=== PATIENT | male | born 1935 | race Caucasian/White ===

== ENCOUNTER → 2024-07-08 | Outpatient (CLI) | payer MEDICARE, BC, SELFPAY ==
[2024-07-08 14:14] LABS: Misc Send Out* See Sep Rpt
[2024-07-08 15:46] LABS: Basophils % (Auto) 1 % (0-2.5); Eosinophils # (Auto) 0.1 Thou/mm3 (0.0-0.5); Eosinophils % (Auto) 3 % (0-10); Hematocrit 26.6 % (41.0-53.0); Immature Granulocytes % (Auto) 0 % (0-0); Immature Granulocytes Auto 0.01 Thou/mm3 (0.00-0.00); Lymphocytes # (Auto) 1.2 Thou/mm3 (1.0-4.8); Lymphocytes % (Auto) 29 % (10-50); Mean Corpuscular HGB Conc 32.3 g/dl (31.0-37.0); Mean Corpuscular Hemoglobin 32.2 pg (25.0-35.0); Mean Corpuscular Volume 100 fL (80-100); Monocytes # (Auto) 0.4 Thou/mm3 (0.0-0.8); Monocytes % (Auto) 11 % (0-12); Neutrophils # (Auto) 2.3 Thou/mm3 (1.8-7.7); Neutrophils % (Auto) 57 % (37-80); Nucleated Red Blood Cell % 0 /100 WBC (0); Platelet Count 218 Thou/mm3 (140-440); RDW Standard Deviation 64.1 fL (35.1-43.9); Red Blood Count 2.67 Miln/mm3 (4.50-5.90); White Blood Count 4.1 Thou/mm3 (3.8-10.6)
[2024-07-08 15:47] LABS: Hemoglobin 8.6 g/dL (13.5-16.0)
[2024-07-08 15:55] LABS: Albumin, Serum 3.7 gm/dL (3.4-4.8); Anion Gap 3 (7-16); BUN/Creatinine Ratio 23 Ratio (12-20); Blood Urea Nitrogen 35 mg/dL (9-23); Calcium 9.2 mg/dL (8.3-10.6); Calcium (Corrected) 9.4 mg/dL (8.5-10.1); Carbon Dioxide 26.7 mMol/L (20.0-31.0); Chloride 103 mMol/L (98-107); Creatinine (Component) 1.5 mg/dL (0.6-1.3); Glucose 92 mg/dL (74-106); Osmolality,Calculated 274 (275-295); Phosphorous 3.6 mg/dL (2.4-5.1); Potassium 4.3 mMol/L (3.4-5.1); Sodium 133 mMol/L (136-145); eGFR 45 See Note
[2024-07-08 16:20] LABS: Ferritin 490 ng/mL (10.5-307.3); Total Iron Binding Capacity 191 mcg/dL (250-425)
[2024-07-08 16:49] LABS: Iron 155 mcg/dL (65-175); Percent Iron Saturation 81 % (20-55); Unsaturated Iron Binding 36 (225-295)
== END | disposition home or self-care (01) ==
LOC: COPL 13:55
PROVIDERS: PCP Family Medicine; Referring Provider Internal Medicine; Visit Provider Internal Medicine
DX: N18.4 Chronic kidney disease, stage 4 (severe) (principal); D63.1 Anemia in chronic kidney disease; I50.9 Heart failure, unspecified; R10.31 Right lower quadrant pain
CPT/HCPCS: 36415; 80069; 82728; 83540; 83550; 84466; 85025

== ENCOUNTER → 2024-07-28 | Outpatient (CLI) | payer MEDICARE, BC, SELFPAY ==
[2024-07-28 11:36] LABS: Misc Send Out* See Sep Rpt
[2024-07-28 12:08] LABS: Basophils # (Auto) 0.1 Thou/mm3 (0.0-0.2); Basophils % (Auto) 2 % (0-2.5); Eosinophils # (Auto) 0.1 Thou/mm3 (0.0-0.5); Eosinophils % (Auto) 2 % (0-10); Hematocrit 24.2 % (41.0-53.0); Immature Granulocytes % (Auto) 1 % (0-0); Immature Granulocytes Auto 0.02 Thou/mm3 (0.00-0.00); Immature Reticulocyte Fraction 10.6 % (2.3-13.4); Lymphocytes # (Auto) 1.2 Thou/mm3 (1.0-4.8); Lymphocytes % (Auto) 28 % (10-50); Mean Corpuscular HGB Conc 32.2 g/dl (31.0-37.0); Mean Corpuscular Hemoglobin 32.5 pg (25.0-35.0); Mean Corpuscular Volume 101 fL (80-100); Monocytes # (Auto) 0.3 Thou/mm3 (0.0-0.8); Monocytes % (Auto) 7 % (0-12); Neutrophils # (Auto) 2.5 Thou/mm3 (1.8-7.7); Neutrophils % (Auto) 60 % (37-80); Nucleated Red Blood Cell % 0 /100 WBC (0); Platelet Count 201 Thou/mm3 (140-440); Reticulocyte % (Auto) 0.4 % (0.5-1.5); Reticulocyte Absolute Auto 10.1 Biln/L (25.0-75.0); Reticulocyte Hgb Content 34.7 pg (28.0-35.0); White Blood Count 4.2 Thou/mm3 (3.8-10.6)
[2024-07-28 12:22] LABS: Hemoglobin 7.8 g/dL (13.5-16.0)
[2024-07-28 12:23] LABS: Sed Rate (ESR) 47 mm/hr (0-20)
[2024-07-28 12:27] LABS: Folate 7.36 ng/mL (>5.38); Vitamin B12 761 pg/mL (211-911)
[2024-07-28 12:42] LABS: Alanine Aminotransferase 8 U/L (10-49); Albumin, Serum 3.8 gm/dL (3.4-4.8); Alkaline Phosphatase 85 U/L (46-116); Anion Gap 7 (7-16); Aspartate Amino Transferase < 10 U/L (0-34); BUN/Creatinine Ratio 31 Ratio (12-20); Bilirubin,Total 0.5 mg/dL (0.3-1.2); Blood Urea Nitrogen 59 mg/dL (9-23); Calcium 9.2 mg/dL (8.3-10.6); Calcium (Corrected) 9.4 mg/dL (8.5-10.1); Carbon Dioxide 25.6 mMol/L (20.0-31.0); Chloride 104 mMol/L (98-107); Creatinine (Component) 1.9 mg/dL (0.6-1.3); Free T4 (Free Thyroxine) 1.34 ng/dL (0.89-1.76); Globulin 3.9 gm/dL (2.3-3.5); Glucose 121 mg/dL (74-106); Osmolality,Calculated 291 (275-295); Sodium 137 mMol/L (136-145); Thyroid Stimulating Hormone 4.45 uIU/mL (0.55-4.78); Total Protein 7.7 gm/dL (5.7-8.2); eGFR 34 See Note
[2024-07-28 13:21] LABS: Ferritin 596 ng/mL (10.5-307.3); Total Iron Binding Capacity 188 mcg/dL (250-425)
[2024-07-28 13:31] LABS: Iron 154 mcg/dL (65-175)
[2024-08-01 06:52] LABS: Erythropoietin (EPO)* 1249.3 mIU/mL (2.6-18.5)
== END | disposition home or self-care (01) ==
LOC: COPL 11:15
PROVIDERS: PCP Family Medicine; Referring Provider Internal Medicine Hematology & Oncology; Visit Provider Internal Medicine Hematology & Oncology
DX: D46.9 Myelodysplastic syndrome, unspecified (principal); I50.9 Heart failure, unspecified; E03.9 Hypothyroidism, unspecified; K21.9 Gastro-esophageal reflux disease without esophagitis
CPT/HCPCS: 36415; 80053; 82607; 82668; 82728; 82746; 83540; 83550; 83880; 84439; 84443; 85025; 85046; 85652

== ENCOUNTER 2024-07-31 02:02 | Emergency (ER) | payer MEDICARE, BC, SELFPAY ==
[2024-07-31] VITALS (7 sets, daily range): BP systolic 105–124; BP diastolic 55–65; PULSE 76–98; RESP 17–26; TEMP 36.6–37; O2SAT 95–99; BMI 21.4
--- NOTE | 2024-07-31 02:15 | PC.NURSE ---
PATIENT WAS BROUGHT TO ER FOR BILATERAL ARM PAIN, TINGLING, SLURRING WORDS, DIZZINESS, THAT WOKE HIM UP FROM HIS SLEEP APPROX 0030. PATIENTS LWK WAS AT 2130 PER PATIENT. A STROKE ALERT WAS CALLED AND PATIENT WAS TAKEN TO CT SCAN.
--- NOTE | 2024-07-31 02:20 | PC.NURSE ---
activated telespecialist conf # [phone]
--- NOTE | 2024-07-31 02:21 | XR_ITS ---
Examination: CTA carotids with intravenous contrast CTA brain, head with intravenous contrast. 2-D sagittal, coronal reconstructions. 3-D reconstructions. Exam date and time: July 31, 2024 0227 hrs. Indications: Stroke alert, onset focal neurologic deficit, difficulty speaking beginning one hour ago CTDI: vol (mGy) 27.84 DLP: (mGycm) 528 Technique: Multiple CTA axial brain, head carotid images post intravenous contrast injection 75 cc, [id number]. 2-D sagittal, coronal reconstructions. 3-D reconstructions, 3-D post processing including vascular maximum intensity projection images. Low dose protocols were performed. One or more of the following dose reduction techniques were used; automated exposure control, adjustment of the mA and/or KV according to patient size, use of iterative reconstruction technique. 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
--- NOTE | 2024-07-31 02:21 | XR_ITS ---
Examination: CT brain head without contrast. 2-D sagittal coronal reconstructions Date and time of exam:July 31, 2024 0226 hrs. Indications: Stroke alert, onset focal neurologic deficit, difficulty speaking with bilateral arm weakness and pain beginning one hour ago CTDI: vol (mGy):53.1 DLP: (mGycm):1119 Technique: Multiple CT axial sections of the brain have been obtained, 5 mm slice thickness. Contrast has not been administered. 2-D sagittal, coronal reconstructions have been obtained Low dose protocols were performed. One or more of the following dose reduction techniques were used; automated exposure control, adjustment of the mA and/or KV according to patient size, use of iterative reconstruction technique. Findings: No significant ventricular enlargement. Intra-axial or extra-axial hemorrhage density is not seen. No mass effect or midline shift Basal cisterns are not remarkable. Fourth ventricle is midline. Cranial vault intact. Impression: Negative for acute hemorrhage, mass effect or midline shift
--- NOTE | 2024-07-31 02:28 | PD.EDADULT ---
ED General RME/HPI General Chief complaint: General Adult/Misc Complain Stated complaint: SHAHEEN ARM PAIN Time Seen by Provider: 07/31/24 02:28 Arrival date/time: 07/31/24 02:02 Related Data Home Medications ?Medication ?Instructions ?Recorded ?Confirmed aspirin 81 mg tablet 81 mg PO DAILY 08/16/23 09/18/23 atorvastatin 40 mg tablet 40 mg PO QPM 08/16/23 09/18/23 carvedilol 25 mg tablet 25 mg PO BID 08/16/23 08/16/23 epoetin jackie 4,000 unit/mL 4,000 unit subcut QOWEEK 08/16/23 09/18/23 injection solution (Procrit) ferrous sulfate 324 mg (65 mg 325 mg PO DAILY PRN ANEMIA 08/16/23 09/18/23 iron) tablet,delayed release finasteride 5 mg tablet 5 mg PO DAILY 08/16/23 09/18/23 fluticasone propionate 50 1 spray intranasal BID 08/16/23 09/18/23 mcg/actuation nasal spray,suspension furosemide 40 mg tablet 40 mg PO DAILY 08/16/23 09/18/23 levothyroxine 25 mcg tablet 25 mcg PO DAILY 08/16/23 09/18/23 magnesium oxide 400 mg (241.3 mg 400 mg PO DAILY 08/16/23 09/18/23 magnesium) tablet pantoprazole 40 mg tablet,delayed 40 mg PO DAILY 08/16/23 09/18/23 release sacubitril 49 mg-valsartan 51 mg 1 tab PO BID 08/16/23 09/18/23 tablet (Entresto) tamsulosin 0.4 mg capsule 0.4 mg PO DAILY 08/16/23 09/18/23 Previous Rx's ?Medication ?Instructions ?Recorded amoxicillin 875 mg-potassium 1 tab PO BID #20 tabs 09/26/23 clavulanate 125 mg tablet Allergies Allergy/AdvReac Type Severity Reaction Status Date / Time No Known Allergies Allergy Verified 06/27/24 13:44 Course Orders Category Date Time Status Bedside Blood Glucose NOW Care 07/31/24 02:21 Completed Allocation Analyst NOW Care 07/31/24 02:21 Completed Continuous Pulse Oximetry NOW Care 07/31/24 02:21 Completed EKG (ED ONLY) *Do not use* NOW Care 07/31/24 02:21 Active In and Out Catheter NEEDED Care 07/31/24 02:21 Active Insert IV NOW Care 07/31/24 02:21 Active NIH Stroke Scale now Care 07/31/24 02:21 Active NPO NOW Care 07/31/24 02:21 Active Nurse Swallow Screen x1 Care 07/31/24 02:21 Active Consult to Neurology / Tele-Neurology Routine Cons 07/31/24 02:[address] angio stroke protocol Stat Exams 07/31/24 02:[address] stroke protocol Stat Exams 07/31/24 02:21 Ordered EKG (ED Only) Stat Exams 07/31/24 02:21 Ordered CBC Stat Lab 07/31/24 02:21 Ordered Comprehensive Metabolic Panel Stat Lab 07/31/24 02:21 Ordered Drug Screen,Urine Stat Lab 07/31/24 02:21 Ordered Magnesium Stat Lab 07/31/24 02:21 Ordered Partial Thromboplastin Time Stat Lab 07/31/24 02:21 Ordered Prothrombin Time with INR Stat Lab 07/31/24 02:21 Ordered Troponin I Stat Lab 07/31/24 02:21 Ordered Urinalysis Stat Lab 07/31/24 02:21 Ordered Urine Culture Stat Lab 07/31/24 02:21 Ordered Ondansetron Inj [Zofran Inj] Med 07/31/24 02:21 Active 4 mg IV Q4HR PRN Oxygen Delivery NOW RT 07/31/24 02:21 Active Vital Signs Vital signs: Vital Signs Temperature 98.6 F 07/31/24 02:08 Pulse Rate 98 07/31/24 02:08 Respiratory Rate 26 H 07/31/24 02:08 Blood Pressure 120/65 07/31/24 02:08 Pulse Oximetry (%) 99 07/31/24 02:08 Oxygen Delivery Method Room Air 07/31/24 02:08 MDM Medications Medication administrations:: Medication Administration History Ondansetron HCl (Ondansetron Inj 2 Mg/Ml Inj 2 Ml) 4 mg IV Q4HR PRN PRN Reason: NAUSEA OR VOMITING Stop: 08/30/24 02:20 Discharge Plan Prescriptions/Referrals Prescriptions/Med Rec: No Action furosemide 40 mg tablet 40 mg PO DAILY Patient Comments: TAKE 1 TABLET BY MOUTH EVERY DAY DIRECTED carvedilol 25 mg tablet 25 mg PO BID Patient Comments: TAKE 1 TABLET BY MOUTH TWICE A DAY levothyroxine 25 mcg tablet 25 mcg PO DAILY Patient Comments: TAKE 1 TABLET BY MOUTH EVERY DAY magnesium oxide 400 mg (241.3 mg magnesium) tablet 400 mg PO DAILY pantoprazole 40 mg tablet,delayed release (DR/EC) 40 mg PO DAILY Patient Comments: TAKE 1 TABLET BY MOUTH EVERY DAY 30 MINUTES BEFORE BREAKFAST finasteride 5 mg tablet 5 mg PO DAILY ferrous sulfate 324 mg (65 mg iron) tablet,delayed release (DR/EC) 325 mg PO DAILY PRN (Reason: ANEMIA) Patient Comments: TAKE 1 TABLET BY MOUTH TWICE A DAY Entresto 49-51 mg tablet 1 tab PO BID Patient Comments: TAKE 1 TABLET BY MOUTH TWICE A DAY atorvastatin 40 mg tablet 40 mg PO QPM Patient Comments: TAKE 1 TABLET BY MOUTH EVERY DAY Procrit 4,000 unit/mL solution 4,000 unit subcut QOWEEK Rx Instructions: every 2 weeks tamsulosin 0.4 mg capsule 0.4 mg PO DAILY aspirin 81 mg Tablet 81 mg PO DAILY Hold Instructions: Resume on 01/11/24. fluticasone propionate 50 mcg/actuation [place],Suspension 1 spray INTRANASAL BID amoxicillin-pot clavulanate 875-125 mg tablet 1 tab PO BID Qty: 20 0RF Patient/Caregiver Discharge Instructions Print Language: [place]
--- NOTE | 2024-07-31 02:37 | PC.NURSE ---
DR. DR DENSON FROM [facility] CALLED FOR A CONSULT AFTER CT SCAN.
--- NOTE | 2024-07-31 02:37 | PD.EDRME ---
Rapid Medical Screening Exam RME Arrival date/time: 07/31/24 02:02 Chief Complaint: General Adult/Misc Complain Time Seen by Provider: 07/31/24 02:28 Vital signs: Vital Signs Temperature 98.6 F 07/31/24 02:08 Pulse Rate 98 07/31/24 02:08 Respiratory Rate 26 H 07/31/24 02:08 Blood Pressure 120/65 07/31/24 02:08 Pulse Oximetry (%) 99 07/31/24 02:08 Oxygen Delivery Method Room Air 07/31/24 02:08 RME Narrative: 89yo male BIBA from home presents to the ED for neurological symptoms. LKWT 2100. Per EMS, patient woke up ~0030 and was stuttering, had tremors, and felt cold. Charge nurse spoke with the patient's , who denies AMS. On ED arrival, patient is stuttering and does not have a facial droop. Orders placed. Patient sent to CT.
[2024-07-31 02:45] LABS: Collection Type, Urine Clean Catch
[2024-07-31 02:56] LABS: Basophils # (Auto) 0.1 Thou/mm3 (0.0-0.2); Basophils % (Auto) 3 % (0-2.5); Bilirubin,Urine Negative (Negative); Blood,Urine Negative (Negative); Budding Yeast,Urine Present; Clarity,Urine Turbid (Clear/Hazy); Color,Urine Lt-Yellow (Lt Yel-Yel); Eosinophils # (Auto) 0.1 Thou/mm3 (0.0-0.5); Eosinophils % (Auto) 1 % (0-10); Glucose, Urine Negative (Negative); Hematocrit 26.4 % (41.0-53.0); Immature Granulocytes % (Auto) 1 % (0-0); Immature Granulocytes Auto 0.03 Thou/mm3 (0.00-0.00); Ketones,Urine Negative (Negative); Leukocyte Esterase,Urine Positive (Negative); Lymphocytes # (Auto) 1.2 Thou/mm3 (1.0-4.8); Lymphocytes % (Auto) 24 % (10-50); Mean Corpuscular HGB Conc 32.6 g/dl (31.0-37.0); Mean Corpuscular Hemoglobin 32.2 pg (25.0-35.0); Mean Corpuscular Volume 99 fL (80-100); Monocytes # (Auto) 0.2 Thou/mm3 (0.0-0.8); Monocytes % (Auto) 5 % (0-12); Neutrophils # (Auto) 3.6 Thou/mm3 (1.8-7.7); Neutrophils % (Auto) 68 % (37-80); Nitrite,Urine Negative (Negative); Nucleated Red Blood Cell % 0 /100 WBC (0); PH,Urine 7.5 (5.0-7.0); Platelet Count 223 Thou/mm3 (140-440); Protein,Urine Trace (Neg - Trace); RBC,Urine 4 /hpf (0-3); Red Blood Count 2.67 Miln/mm3 (4.50-5.90); Specific Gravity,Urine 1.014 (1.001-1.035); Squamous Epithelial Cell,Urine < 1 /hpf (0-5); Urobilinogen,Urine Negative mg/dL (0.0-1.0); WBC,Urine 305 /hpf (0-5); White Blood Count 5.3 Thou/mm3 (3.8-10.6)
[2024-07-31 02:59] LABS: Hemoglobin 8.6 g/dL (13.5-16.0)
[2024-07-31 03:03] LABS: INR 1.1 (0.9-1.3); Prothrombin Time 11.9 Seconds (9.0-12.2)
[2024-07-31 03:04] LABS: Amphetamine/Methamp Scrn,U Negative (Negative); Barbiturate Screen,Urine Negative (Negative); Benzodiazepines Screen,Urine Negative (Negative); Benzoylecgonine Screen, Ur Negative (Negative); Fentanyl Screen,Urine Negative (Negative); Opiate Screen,Urine Negative (Negative); THC Screen,Urine Negative (Negative)
--- NOTE | 2024-07-31 03:04 | EDNOTE_ITS ---
ED General RME/HPI General Chief complaint: General Adult/Misc Complain Stated complaint: SHAHEEN ARM PAIN Time Seen by Provider: 07/31/24 02:28 Arrival date/time: 07/31/24 02:02 Limitations: no limitations RME / HPI RME / HPI narrative: 89yo male ANUJA from home presents to the ED for neurological symptoms. LKWT 2100. Per EMS, patient woke up ~0030 and was stuttering, had tremors, and felt cold. Charge nurse spoke with the patient's , who denies AMS. On ED arrival, patient is stuttering and does not have a facial droop. Orders placed. Patient sent to CT. ------ Dr. Liz's Main ED Evaluation: 89yo male ANUJA from home presents to the ED for a chief complaint of itchy BUE per pt. Patient states he's had posterior head pain x 1 day, reporting he feels like he slept wrong . He states he woke up tonight at 0030 with lightheadedness, chills, tremors, and had neck twitching, so he wanted to come in for evaluation. He took Tylenol without any alleviation of symptoms. Denies any chest pain, shortness of breath, dizziness or any other associated symptoms. No known allergies. Related Data Home Medications ?Medication ?Instructions ?Recorded ?Confirmed aspirin 81 mg tablet 81 mg PO DAILY 08/16/23 07/31/24 carvedilol 25 mg tablet 25 mg PO BID 08/16/23 07/31/24 finasteride 5 mg tablet 5 mg PO DAILY 08/16/23 07/31/24 fluticasone propionate 50 1 spray intranasal BID 08/16/23 07/31/24 mcg/actuation nasal spray,suspension levothyroxine 25 mcg tablet 25 mcg PO DAILY 08/16/23 07/31/24 pantoprazole 40 mg tablet,delayed 40 mg PO DAILY 08/16/23 07/31/24 release sacubitril 49 mg-valsartan 51 mg 1 tab PO BID 08/16/23 07/31/24 tablet (Entresto) tamsulosin 0.4 mg capsule 0.4 mg PO DAILY 08/16/23 07/31/24 hydroxyzine HCl 50 mg tablet 50 mg PO QID PRN 07/31/24 07/31/24 Previous Rx's ?Medication ?Instructions ?Recorded acetaminophen 325 mg tablet 650 mg (2 x 325 mg) PO BID PRN 07/31/24 (Tylenol) pain #14 tabs Allergies Allergy/AdvReac Type Severity Reaction Status Date / Time No Known Allergies Allergy Verified 07/31/24 15:07 Review of Systems Review of Systems Systems Reviewed: All systems reviewed, normal except as documented Past Medical History Past Medical History NEUROLOGIC: Positive Neurological Disorders; Negative Cerebrovascular Accident, Transient Ischemic Attacks (TIA), Dementia, Alzheimer's Disease, Parkinson's Disease, Brain Tumor, Meningitis, Seizures, Epilepsy, Multiple Sclerosis, Cerebral Palsy, Amyotrophic Lateral Sclerosis (ALS/Sharlene Gehrig's), Guillain-Jackson Syndrome, Spina Bifida, Paralysis, Peripheral Neuropathy, Stewart's Palsy, Subdural Hematoma, Migraine, Head Trauma, Spinal Cord Injury or Traumatic Brain Injury CARDIAC: Positive Cardiac Disorders (Pt. had open heart surgery 4 years ago and 1 stent placed 5 years ago.), Myocardial Infarction (2019), Cardiac Arrhythmia, Coronary Artery Disease, Hypercholesterolemia, Congestive Heart Failure, Valvular Heart Disease and Hypertension; Negative Atrial Fibrillation, Angina, Heart Murmur, Atherosclerotic Heart Disease, Peripheral Vascular Disease, Aneurysm, Congenital Heart Disease, Rheumatic Fever, Cardiomyopathy, Edema, Pericarditis, Cellulitis, Deep Vein Thrombosis, Hypotension or Varicose Veins RESPIRATORY: Positive Pneumonia and Sleep Apnea; Negative Chronic Obstructive Pulmonary Disease (COPD), Asthma, Bronchitis, Emphysema, Pulmonary Fibrosis, Cystic Fibrosis, Tuberculosis, Pulmonary Embolism or Pulmonary Edema GASTROINTESTINAL: Positive Gastrointestinal Disorders, Gall Bladder Disease and Gastroesophageal Reflux Disease; Negative Hepatitis, Cirrhosis, Pancreatitis, Celiac Disease, Gastrointestinal Bleed, Esophageal Varices, Joe's Esophagus, Colitis, Ulcerative Colitis, Diverticulitis, Diverticulosis, Ulcer, Colorectal Cancer, Irritable Bowel, Crohn's Disease, Obstructive Bowel, Hiatal Hernia, Hemorrhoids or Obesity GENITOURINARY: Positive Genitourinary Disorders, Renal Disease and Benign Prostatic Hyperplasia; Negative Kidney Stones, Polycystic Kidney Disease, Neurogenic Bladder, Inguinal Hernia, Dialysis or Prostate Cancer REPRODUCTIVE: Negative Testicular Cancer MUSCULOSKELETAL: Positive Musculoskeletal Disorders and Arthritis (Left shoulder.); Negative Muscular Dystrophy, Myasthenia Gravis, Marfan's Syndrome, Bone Cancer, Rheumatoid Arthritis, Osteoporosis, Degenerative Disk Disease, Gout, Scoliosis, Carpal Tunnel Syndrome, Fibromyalgia, Fractures, Degenerative Joint Disease, Osteomyelitis or Poliovirus ENT: Positive Cataracts (bilat); Negative Glaucoma, Blind, Retinal Detachment, Macular Degeneration, Ear Infection, Deafness, Head Trauma or Eye Prosthesis ENDOCRINE: Positive Hypothyroidism; Negative Endocrine Disorders, Diabetes Mellitus Type 1, Diabetes Mellitus Type 2, Hypoglycemia, Viral's Syndrome, Highland's Disease, Hyperthyroidism, Parathyroid Disease, Pituitary Disease, Systemic Lupus Erythematosus, Syndrome of Inappropriate Antidiuretic Hormone (SIADH), Adrenal Disease or Graves' Disease HEMATOLOGIC: Positive Blood Disorders and Anemia; Negative Leukemia, Hemophilia, Thalassemia, Sickle Cell Disease or Clotting Problems PSYCHO/SOCIAL: Positive Anxiety; Negative Psychiatric Problems, Schizophrenia, Recreational Drug Use, Bipolar Disorder, Depression, Behavior Problems, Self-Mutilation, Attention Deficit Disorder, Attention Deficit Hyperactivity Disorder, Post Traumatic Stress Disorder or Eating Disorder OTHER HISTORY: Positive Hospitalization, Falls, Blood Transfusions, Chicken Pox, Measles and Cancer; Negative Autoimmune Disease, Down Syndrome, Autism, Developmental Delay, Shingles, Blood Transfusion Reaction, Anesthesia Reactions, Organ Transplant, Chemotherapy, Radiation Therapy, Hyperbaric Therapy, MRSA, VRSA, Vancomycin- Resistant Enterococci, Human Immunodeficiency Virus (HIV), Mumps, Rubella ([place]au[place] Measles), Pertussis, Clostridium Difficile, Colorectal Cancer, Lung Cancer, Prostate Cancer or Testicular Cancer Family History FAMILY HISTORY: Positive Family Cancer (sister had a brain tumor.) and Family Surgery; Negative Family Psychiatric Problems, Family Respiratory Disorders, Family Cardiac Disorders, Family Gastrointestinal Problems or Family Anesthesia Reaction Surgical History SURGICAL: Positive Cardiac Surgery, Open Heart Surgery, Coronary Artery Bypass Graft, Coronary Stent, Cardiac Catheterization, Pacemaker (05/27/2023), Angiogram, Auto Implanted Cardiovert Defib (defibrillator.), Nose Surgery (sinus surgery 1969), Oral Surgery (bottom lip skin cancer), Tonsillectomy, Abdominal Surgery and Vasectomy; Negative Valve Replacement, Vascular Surgery, Carotid Endarterectomy, Endocrine Surgery, Thyroidectomy, Ear Surgery, Tympanostomy Tube, Eye Surgery, Adenoidectomy, Cochlear Implant, Corneal Transplant, Throat Surgery, Tracheostomy, Gastric Bypass Surgery, Gastrostomy, Bowel Surgery, Nephrectomy, Transurethral Resection, Joint Replacement, Amputation, Open Reduction Internal Fixation, Arthroscopy, Neurologic Surgery, Brain Shunt or Organ Transplant Social History SMOKING STATUS: Former smoker SUBSTANCE USE: does not use ED Exam Narrative Physical exam: Pt appears slightly anxious General Limitations: Present no limitations General appearance: Present alert and anxious; Absent obtunded or in distress Head Head exam: Present atraumatic Eye Eye exam: Present normal appearance, PERRL, EOMI and other (no trauma); Absent nystagmus, miosis or mydriasis ENT ENT exam: Present normal exam, normal oropharynx and mucous membranes moist Neck Neck exam: Present normal inspection, full ROM and trachea midline Chest Chest inspection: Present other (Midline scar mid chest well-healed; barrel- chested); Absent rash Respiratory Respiratory exam: Present normal lung sounds bilaterally Cardiovascular Cardiovascular exam: Present regular rate, normal rhythm and normal heart sounds Abdominal Exam Abdominal exam: Present soft and normal bowel sounds Extremities Exam Extremities exam: Present normal inspection and full ROM Back Exam Back exam: Present normal inspection, full ROM and other (no step-off or ecchymosis); Absent tenderness, vertebral tenderness or rashes Neurological Exam Neurological exam: Present alert and other (has stuuering of words occasionally, no facial droop, ) Psychiatric Psychiatric exam: Present normal affect and normal mood Skin Skin exam: Present warm, dry, intact, normal color and other (no zoster rash) Course Quality Measures none Orders Category Date Time Status Bedside Blood Glucose NOW Care 07/31/24 02:21 Completed Corporate Director Talent Assessment NOW Care 07/31/24 02:21 Completed Continuous Pulse Oximetry NOW Care 07/31/24 02:21 Completed EKG (ED ONLY) *Do not use* NOW Care 07/31/24 02:21 Completed In and Out Catheter NEEDED Care 07/31/24 02:21 Completed Insert IV NOW Care 07/31/24 02:21 Completed NIH Stroke Scale now Care 07/31/24 02:21 Completed NPO NOW Care 07/31/24 02:21 Completed Nurse Swallow Screen x1 Care 07/31/24 02:21 Completed Consult to Neurology / Tele-Neurology Routine Cons 07/31/24 02:[address] angio stroke protocol Stat Exams 07/31/24 02:[address] cervical spine wo con Stat Exams 07/31/24 04:[address] stroke protocol Stat Exams 07/31/24 02:21 Completed EKG (ED Only) Stat Exams 07/31/24 02:21 Ordered CBC Stat Lab 07/31/24 02:23 Completed Comprehensive Metabolic Panel Stat Lab 07/31/24 02:23 Completed Drug Screen,Urine Stat Lab 07/31/24 02:23 Completed Magnesium Stat Lab 07/31/24 02:23 Completed Partial Thromboplastin Time Stat Lab 07/31/24 02:23 Completed Prothrombin Time with INR Stat Lab 07/31/24 02:23 Completed Troponin I Stat Lab 07/31/24 02:23 Completed Urinalysis Stat Lab 07/31/24 02:23 Completed Urine Culture Stat Lab 07/31/24 02:23 Received Morphine Inj Med 07/31/24 04:01 Discontinued 2 mg IVP X1 ONE Morphine Inj [Morphine Sulf Inj] Med 07/31/24 03:29 Discontinued 2 mg IV X1 ONE Ondansetron Inj [Zofran Inj] Med 07/31/24 02:21 Discontinued 4 mg IV Q4HR PRN cefTRIAXone [Rocephin] 1,000 mg Med 07/31/24 03:12 Discontinued Sodium Chloride 0.9% (P) [Ns 0.9% (P)] 50 ml IV X1 Oxygen Delivery NOW RT 07/31/24 02:21 Completed Vital Signs Vital signs: Vital Signs Temperature 98.6 F 07/31/24 02:08 Pulse Rate 98 07/31/24 02:08 Respiratory Rate 26 H 07/31/24 02:08 Blood Pressure 120/65 07/31/24 02:08 Pulse Oximetry (%) 99 07/31/24 02:08 Oxygen Delivery Method Room Air 07/31/24 02:08 [facility] Patient data External records reviewed:: [facility] previous records (Per chart review, patient was seen here on 06/27/24 for anemia.) Clinical information provided by:: patient and EMS Social determinants that could affect healthcare access:: none Patient has the following chronic illnesses:: CHF, CAD, HTN, GERD, BPH How is presenting disease/condition affected by chronic disease/condition?: u neffected by Evaluation data The following diagnostics were reviewed and interpreted by me:: lab results, radiology exam(s) and EKG tracing(s) Lab and/or radiology exams considered but not ordered:: none Interpretation Summary: WBC count is normal, HnH is stable, Creatinine is elevated at 2.1, troponin is normal, UA shows 4 RBCs, 305 WBCs, and positive yeast, according to my interpretation. EKG ------ I have personally reviewed the radiology data and agree with the radiologist's interpretation below: Telerad Preliminary Report Draft Patient: CHRISTIANE COTTRELL [facility]. Record#: [id number] Birthdate: 1935 Age/Sex: 89 / M Location: [facility] Attending Dr: Ordering Physician: Date of Service: Procedure(s): Accession Number(s): cc: ~ CT scan of the head without intravenous contrast (axial sections with sagittal and coronal reformats) July 31, 2024 0226 hours Clinical history: Focal neuro deficit, stroke suspected No prior study is available for comparison. Findings: There is no evidence of intracranial hemorrhage, mass effect or midline shift. There are mild periventricular white matter hypodensities, likely representing chronic small vessel ischemia. There is mild volume loss. The calvarium is unremarkable. The mastoid air cells and the visualized paranasal sinuses are clear. Impression: No evidence of intracranial hemorrhage, mass effect or midline shift. If there are persistent clinical symptoms or additional clinical concerns consider an MRI. 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 Discussion Details: Results verbally communicated to : Dr. Meraz at 02:45 AM 07/31/2024 Report Electronically Signed By: Lamberto Wills 07/31/2024 3:37:38 AM [EST] Telerad Preliminary Report Draft Patient: CHRISTIANE COTTRELL [facility]. Record#: [id number] Birthdate: 1935 Age/Sex: 89 / M Location: [facility] Attending Dr: Ordering Physician: Date of Service: Procedure(s): Accession Number(s): cc: ~ CT angiogram of the head and neck with intravenous contrast (axial sections with sagittal and coronal reformats) July 31, 2024 at 0227 hours Clinical History: Focal neuro deficit, stroke suspected No prior study is available for comparison. Findings: Head: The internal carotid, middle and anterior cerebral arteries are patent bilaterally. The intracranial vertebral arteries are patent. The vertebrobasilar junction, basilar and posterior cerebral arteries are patent. No evidence of large vessel occlusion, critical stenosis or aneurysm.There is mild to moderate stenosis of the intracranial segment of right vertebral artery Neck: The aortic arch to the extent visualized as well as the origins of the right brachiocephalic, left common carotid, and left subclavian arteries are patent. The common carotid arteries, carotid bulbs and external carotid arteries are patent. Atheromatous plaques with about 70 % stenosis at the carotid bulb/proximal right internal carotid artery. Atheromatous plaques with about 50 % stenosis at the carotid bulb/proximal left internal carotid artery. The origins of the vertebral arteries are unremarkable. The left vertebral artery is dominant. No evidence of vascular occlusion, dissection or aneurysm. The soft tissues of the neck are unremarkable. Degenerative changes are identified in the spine. 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 No evidence of large vessel occlusion, critical stenosis or aneurysm. Neck: Atheromatous plaques with about 70 % stenosis at the right carotid bulb/proximal right internal carotid artery. Atheromatous plaques with about 50 % stenosis at the leftcarotid bulb/proximal left internal carotid artery. No evidence of vascular occlusion, dissection or aneurysm. Discussion Details: Results were verbally communicated to Uvaldo Juares A callback number is provided to facilitate direct [id number] communication. Time of verbal communication 07 : 02 am Report Electronically Signed By: Lamberto Wills 07/31/2024 4:12:14 AM [EST] Telerad Preliminary Report Draft Patient: CHRISTIANE COTTRELL [facility]. Record#: [id number] Birthdate: 1935 Age/Sex: 89 / M Location: [facility] Attending Dr: Ordering Physician: Date of Service: Procedure(s): Accession Number(s): cc: ~ CT scan of the cervical spine without intravenous contrast (axial sections with sagittal and coronal reformats). July 31, 2024 at 0442 hours Clinical History: Bilateral arm pain, neck spasm. Comparison: No prior study is available for comparison. Findings: There is no acute cervical fracture or traumatic subluxation. The paravertebral soft tissues are unremarkable. Calcified 1 cm left thyroid nodule. Impression: No evidence of acute cervical fracture or traumatic subluxation. Report Electronically Signed By: Oz Isbell 07/31/2024 5:52:03 AM [EST] Medications Medications considered but not ordered:: none Medication administrations:: Medication Administration History Discontinued Medications Ceftriaxone Sodium 1,000 mg/ (Sodium Chloride) 50 mls @ 100 mls/hr IV X1 ONE Stop: 07/31/24 03:41 Last Infusion: 07/31/24 04:36 Dose: Infused Documented By: Admin: 07/31/24 04:01 Dose: 100 mls/hr Documented By: SKYLER Morphine Sulfate (Morphine Sulf Inj 4 Mg/Ml Vial) 2 mg 0.03 mg/kg (2 mg) IV X1 ONE Stop: 07/31/24 03:30 Last Admin: 07/31/24 04:04 Dose: Not Given Documented By: SKYLER Non-Admin Reason: Duplicate Medication on eMAR Morphine Sulfate (Morphine Sulf Inj 10 Mg/Ml Vial) 2 mg IVP X1 ONE Stop: 07/31/24 04:02 Last Admin: 07/31/24 04:04 Dose: Not Given Documented By: SKYLER Non-Admin Reason: Patient Refused Ondansetron HCl (Ondansetron Inj 2 Mg/Ml Inj 2 Ml) 4 mg IV Q4HR PRN PRN Reason: NAUSEA OR VOMITING Stop: 08/30/24 02:20 see above Consultations Consultation(s) initiated? (list below): Yes Consultation #1 (Physician, Specialty, Details): Discussed case with Dr. Cutler from [teleneurology] regarding [consultation]. Discussed patients ED course, exam findings, labs, and radiology results. Does not feel that the patient is having a stroke at this time, but does recommend CT cervical spine to r/o radiculopathy. Diagnosis Differential Diagnosis ED Complaint MDM: stroke, cervical radiculopathy, infection, electrolyte abnormality Most likely diagnosis given after review of the tests above:: see below Admission Indicated Admission indicated?: not indicated Explain why admission is indicated or not indicated:: Admission criteria not met. Admission Request Was there a request for admission?: No Disposition Plan Disposition Plan: Discharge Discharge Attestation Discharge Attestation: The patient and all family members were given an opportunity to ask questions and understood the discharge instructions. Discharge instructions specifically effects, indications for sooner follow up or return to the emergency department, and the expected course of current diagnosis. Patient condition: Stable Medical Decision Making MDM Narrative MDM Narrative: Patient is not a tPA candidate secondary to last known normal was 9 PM. 89-year-old male with history of pacemaker/defibrillator coming in with tremors, chronic arm discomfort presenting with possible stuttering. Differential diagnosis includes stroke, cervical radiculopathy, infection, electrolyte abnormality, however the patient has not had any falls. The patient was seen by teleneurologist who feels this was not a stroke And no stroke up workup is needed at this time. Would recommend CT cervical spine to rule out possible radiculopathy. Differential Diagnosis Differential Diagnosis: stroke, cervical radiculopathy, infection, electrolyte abnormality Lab Data 07/31/24 02:23 07/31/24 02:23 Labs: Lab Results 07/31/24 Range/Units 02:23 WBC 5.3 (3.8-10.6) Thou/mm3 RBC 2.67 L (4.50-5.90) Miln/mm3 Hgb 8.6 L (13.5-16.0) g/dL Hct 26.4 L (41.0-53.0) % MCV 99 (80-100) fL MCH 32.2 (25.0-35.0) pg MCHC 32.6 (31.0-37.0) g/dl RDW Std Deviation 69.0 H (35.1-43.9) fL Plt Count 223 (140-440) Thou/mm3 Neut % (Auto) 68 (37-80) % Lymph % (Auto) 24 (10-50) % Coal % (Auto) 5 (0-12) % Eos % (Auto) 1 (0-10) % Baso % (Auto) 3 H (0-2.5) % Neut # (Auto) 3.6 (1.8-7.7) Thou/mm3 Lymph # (Auto) 1.2 (1.0-4.8) Thou/mm3 Coal # (Auto) 0.2 (0.0-0.8) Thou/mm3 Eos # (Auto) 0.1 (0.0-0.5) Thou/mm3 Baso # (Auto) 0.1 (0.0-0.2) Thou/mm3 Immature Gran # (Auto) 0.03 H (0.00-0.00) Thou/mm3 Absolute Nucleated RBC 0.00 (0.00-0.00) Thou/mm3 Immature Gran % 1 H (0-0) % Nucleated RBC % 0 (0) /100 WBC PT 11.9 (9.0-12.2) Seconds INR 1.1 (0.9-1.3) APTT 20.0 L (22.0-36.0) Seconds Sodium 137 (136-145) mMol/L Potassium 4.0 (3.4-5.1) mMol/L Chloride 104 (98-107) mMol/L Carbon Dioxide 22.2 (20.0-31.0) mMol/L Anion Gap 11 (7-16) BUN 59 H (9-23) mg/dL Creatinine 2.1 H (0.6-1.3) mg/dL Estim Creat Clear Calc 23.1 L (>60) mL/min eGFR 30 L (60 - ) See Note BUN/Creatinine Ratio 28 H (12-20) Ratio Glucose 136 H (74-106) mg/dL Calculated Osmolality 292 (275-295) Calcium 9.8 (8.3-10.6) mg/dL Corrected Calcium 9.8 (8.5-10.1) mg/dL Magnesium 1.9 (1.6-2.6) mg/dL Total Bilirubin 0.3 (0.3-1.2) mg/dL AST 10 (0-34) U/L ALT 7 L (10-49) U/L Alkaline Phosphatase 95 (46-116) U/L Troponin I 0.034 (0.0-0.045) ng/mL Total Protein 8.6 H (5.7-8.2) gm/dL Albumin 4.2 (3.4-4.8) gm/dL Globulin 4.4 H (2.3-3.5) gm/dL Albumin/Globulin Ratio 1.0 L (1.2-2.2) Ur Collection Type Clean Catch Urine Color Lt-Yellow (Lt Yel-Yel) Urine Clarity Turbid A (Clear/Hazy) Urine pH 7.5 H (5.0-7.0) Ur Specific Bivins 1.014 (1.001-1.035) Urine Protein Trace (Neg - Trace) Urine Glucose (UA) Negative (Negative) Urine Ketones Negative (Negative) Urine Blood Negative (Negative) Urine Nitrite Negative (Negative) Urine Bilirubin Negative (Negative) Urine Urobilinogen (Auto) Negative (0.0-1.0) mg/dL Ur Leukocyte Esterase Positive (Negative) Urine RBC 4 H (0-3) /hpf Urine WBC 305 H (0-5) /hpf Ur Squamous Epith Cells < 1 (0-5) /hpf Urine Bacteria None (None) Urine Yeast (Budding) Present A (None) Urine Opiates Screen Negative (Negative) Urine Fentanyl Screen Negative (Negative) Ur Barbiturates Screen Negative (Negative) U Amphetamin/Meth Scrn Negative (Negative) U Benzodiazepines Scrn Negative (Negative) U Cocaine Metab Screen Negative (Negative) U Marijuana (THC) Screen Negative (Negative) Critical Care Time Critical Care Time Critical Care Time: Yes Total Critical Care Time (min.): 35 Attestation: The high probability of sudden, clinically significant deterioration in the patient?s condition required the highest level of my preparedness to intervene urgently. The services I provided to this patient were to treat and/or prevent clinically significant deterioration. Services included the following: chart data review, reviewing nursing notes and/or old charts, documentation time, design sales consultant collaboration regarding findings and treatment options, medication orders and management, direct patient care, vital sign assessments and ordering, interpreting and reviewing diagnostic studies and lab tests. Aggregate critical care time includes only time during which I was engaged in work directly related to the patient?s care, as described above, whether at bedside or elsewhere in the Emergency Department. It did not include time spent performing other reported procedures or the services of residents, students, nurses or physician assistants. Discharge Plan Plan Patient Disposition: HOME (Self Care) Patient condition on transfer: Stable Prescriptions/Referrals Prescriptions/Med Rec: New acetaminophen [Tylenol] 325 mg tablet 650 mg PO BID PRN (Reason: pain) Qty: 14 0RF No Action hydroxyzine HCl 50 mg tablet 50 mg PO QID PRN carvedilol 25 mg tablet 25 mg PO BID Patient Comments: TAKE 1 TABLET BY MOUTH TWICE A DAY levothyroxine 25 mcg tablet 25 mcg PO DAILY Patient Comments: TAKE 1 TABLET BY MOUTH EVERY DAY pantoprazole 40 mg tablet,delayed release (DR/EC) 40 mg PO DAILY Patient Comments: TAKE 1 TABLET BY MOUTH EVERY DAY 30 MINUTES BEFORE BREAKFAST finasteride 5 mg tablet 5 mg PO DAILY Entresto 49-51 mg tablet 1 tab PO BID Patient Comments: TAKE 1 TABLET BY MOUTH TWICE A DAY tamsulosin 0.4 mg capsule 0.4 mg PO DAILY aspirin 81 mg Tablet 81 mg PO DAILY Hold Instructions: Resume on 10/03/23. until further notice. follow up with dr. mckee in [address] Mckee will determine when to restart. fluticasone propionate 50 mcg/actuation [place],Suspension 1 spray INTRANASAL BID Problem List Clinical Impression: Chronic anemia, Bilateral arm pain Patient/Caregiver Discharge Instructions Education Materials: ED Pain, Acute, Uncertain Cause, ED RICE Additional Instructions: You can take [id number] Tylenol for worsening symptoms, or any other concerns. Print Language: Slovak Stand Alone Forms: Ebony Award Info., Patient Portal Info Letter
--- NOTE | 2024-07-31 03:04 | PD.TNEURO ---
Tele Neuro Consultation Consultation Date 07/31/24 Most Recent Vital Signs Last Vital Signs Temp 98.6 F 07/31/24 02:08 Pulse 98 07/31/24 02:10 Resp 26 H 07/31/24 02:08 BP 120/65 07/31/24 02:08 Pulse Ox 99 07/31/24 02:23 O2 Del Method Room Air 07/31/24 02:08 Laboratory-Coagulation Panel PT 11.9 Seconds (9.0-12.2) 07/31/24 02:23 INR 1.1 (0.9-1.3) 07/31/24 02:23 APTT 20.0 Seconds (22.0-36.0) L 07/31/24 02:23 Consultation Narrative [facility] Tele[facility]urology Consult [facility] Patient Name:???Dustin Wyatt Date of :???1935 Identification Number:??? Date of Service:???07/31/2024 02:20:01 Diagnosis: ?R20.2 - Paresthesia of skin ?F98.5 - Stuttering [stammering] Impression: ?89 yo M who presented for evaluation of bilateral upper extremity pain/tingling/tremors with associated neck pain and stuttering speech. His neurologic exam was notable for BLE weakness (pain limiting) as well as stuttering speech without any focal deficits or aphasia appreciated. Overall, there is low clinical suspicion for acute stroke given the bilateral pattern of the symptoms with associated pain as well as the pattern of his speech changes (stuttering speech is not a symptom of stroke). Differential diagnosis includes cervical myelopathy/radiculopathy, metabolic derangement with peripheral neuropathy, or less likely musculoskeletal. Recommend further C-spine imaging and neuropathy workup as discussed below. Our recommendations are outlined below. Recommendations: ?May trial gabapentin 300 mg BID for neuropathic pain ?If able given history of pacemaker/defibrillator, would ideally obtain MRI C-spine for further evaluation. If unable to obtain MRI, then would recommend CT C-spine to rule out any acute process ?If not checked recently, please obtain vitamin B12, thiamine, vitamin B6, TSH with free T4, A1C, and ESR/CRP ?PT/OT evaluations Sign Out: ? Discussed with Emergency Department Provider Advanced Imaging:CTA Head and Neck Completed. LVO:No Patient in not a candidate for PRISCILLA Metrics: Last Known Well: 07/30/2024 21:00:00 Dispatch Time: 07/31/2024 02:20:01 Arrival Time: 07/31/2024 02:02:00 Initial Response Time: 07/31/2024 02:21:12Symptoms: bilateral upper extremity pain and tingling and trouble speaking. Initial patient interaction: 07/31/2024 02:45:40 NIHSS Assessment Completed: 07/31/2024 02:53:42Patient is not a candidate for Thrombolytic. Thrombolytic Medical Decision: 07/31/2024 02:53:43Patient was not deemed candidate for Thrombolytic because of following reasons: LKW outside 4.5 hr window. . I personally Reviewed the CT Head and it Showed no acute process Primary Provider Notified of Diagnostic Impression and Management Plan on: 07/31/2024 03:03:33 History of Present Illness:Patient is a 89 year old Male. Patient was brought by EMS for symptoms of bilateral upper extremity pain and tingling and trouble speaking. Patient reports that he was last known normal around 9 PM prior to going to bed. He awoke earlier this morning with acute onset of BUE pain/tingling and tremors with associated neck pain. He also reports trouble speaking with stuttering speech as well, which is new for him. Review of systems was otherwise positive for chronic back pain, BLE tingling, and difficulty ambulating due to the pain. ? Past Medical History: ?Hypertension ?Hyperlipidemia ?Coronary Artery Disease Other PMH:? hypothyroidism, chronic anemia, kidney tumors , prostate tumor Medications: No Anticoagulant use? No Antiplatelet use Reviewed EMR for current medications Allergies:? NKDA Social History: Smoking: Former Family History: There is no family history of premature cerebrovascular disease pertinent to this consultation ROS : 14 Points Review of Systems was performed and was negative except mentioned in HPI. Past Surgical History: There Is No Surgical History Contributory To Today?s Visit ? Examination: BP(126/65),?Pulse(81), 1A: Level of Consciousness - Alert; keenly responsive?+ 0 1B: Ask Month and Age - Both Questions Right?+ 0 1C: Blink Eyes & Squeeze Hands - Performs Both Tasks?+ 0 2: Test Horizontal Extraocular Movements - Normal?+ 0 3: Test Visual King - No Visual Loss?+ 0 4: Test Facial Palsy (Use Grimace if Obtunded) - Normal symmetry?+ 0 5A: Test Left Arm Motor Drift - No Drift for 10 Seconds?+ 0 5B: Test Right Arm Motor Drift - No Drift for 10 Seconds?+ 0 6A: Test Left Leg Motor Drift - Some Effort Against Hyndman?+ 2 6B: Test Right Leg Motor Drift - Some Effort Against Hyndman?+ 2 7: Test Limb Ataxia (FNF/Heel-Wisdom) - No Ataxia?+ 0 8: Test Sensation - Normal; No sensory loss?+ 0 9: Test Language/Aphasia - Normal; No aphasia?+ 0 10: Test Dysarthria - Mild-Moderate Dysarthria: Slurring but can be understood?+ 1 11: Test Extinction/Inattention - No abnormality?+ 0 NIHSS Score:?5 NIHSS Free Text :?Stuttering speech without any leida aphasia appreciated Pre-Morbid Modified Deuel Scale: 3 Points = Moderate disability; requiring some help, but able to walk without assistance Spoke with :?Dr. Meraz This consult was conducted in real time using interactive audio and video technology. Patient was informed of the technology being used for this visit and agreed to proceed. Patient located in hospital and provider located at home/office setting. Patient is being evaluated for possible acute neurologic impairment and high probability of imminent or life-threatening deterioration. I spent total of 40 minutes providing care to this patient, including time for face to face visit via telemedicine, review of medical records, imaging studies and discussion of findings with providers, the patient and/or family. Dr Danielito Cutler [facility] For Inpatient follow-up with [facility] physician please call [facility] at . As we are not an outpatient service for any post hospital discharge needs please contact the hospital for assistance. If you have any questions for the [facility] physicians or need to reconsult for clinical or diagnostic changes please contact us via [facility] at . ?
[2024-07-31 03:20] LABS: Alanine Aminotransferase 7 U/L (10-49); Albumin, Serum 4.2 gm/dL (3.4-4.8); Alkaline Phosphatase 95 U/L (46-116); Anion Gap 11 (7-16); Aspartate Amino Transferase 10 U/L (0-34); BUN/Creatinine Ratio 28 Ratio (12-20); Bilirubin,Total 0.3 mg/dL (0.3-1.2); Blood Urea Nitrogen 59 mg/dL (9-23); Calcium 9.8 mg/dL (8.3-10.6); Calcium (Corrected) 9.8 mg/dL (8.5-10.1); Carbon Dioxide 22.2 mMol/L (20.0-31.0); Chloride 104 mMol/L (98-107); Creatinine (Component) 2.1 mg/dL (0.6-1.3); Estimated Creatinine Clearance 23.1 mL/min (>60); Globulin 4.4 gm/dL (2.3-3.5); Glucose 136 mg/dL (74-106); Magnesium 1.9 mg/dL (1.6-2.6); Osmolality,Calculated 292 (275-295); Sodium 137 mMol/L (136-145); Total Protein 8.6 gm/dL (5.7-8.2); Troponin I 0.034 ng/mL (0.0-0.045); eGFR 30 See Note
--- NOTE | 2024-07-31 03:38 | PRELIM_ITS ---
CT scan of the head without intravenous contrast (axial sections with sagittal and coronal reformats) July 31, 2024 0226 hoursClinical history: Focal neuro deficit, stroke suspectedNo prior study is available for comparison. Findings:There is no evidence of intracranial hemorrhage, mass effect or m idline shift. There are mild periventricular white matter hypodensities, likely representing chronic small vessel ischemia. There is mild volume loss. The calvarium is unremarkable. The mastoid air cell s and the visualized paranasal sinuses are clear.Impression:No evidence of intracranial hemorrhage, m ass effect or midline shift. If there are persistent clinical symptoms or additional clinical concern s consider an MRI. Periventricular chronic small vessel ischemia and volume loss.Discussion Details: Results verbally communicated to : Dr. Meraz at 02:45 AM 07/31/2024 Report Electronically Signed By: Lamberto Wills 07/31/2024 3:37:38 AM [EST]
[2024-07-31] MEDS: cefTRIAXone 1,000 MG in SODIUM CHLORIDE 0.9% (P) 50 ML 100 MG IV (04:01)
--- NOTE | 2024-07-31 04:13 | PRELIM_ITS ---
CT angiogram of the head and neck with intravenous contrast (axial sections with sagittal and coronal reformats) July 31, 2024 at 0227 hours Clinical History: Focal neuro deficit, stroke suspectedNo prior study is available for comparison. Findings:Head: The internal carotid, middle and anterior ce rebral arteries are patent bilaterally. The intracranial vertebral arteries are patent. The vertebrob asilar junction, basilar and posterior cerebral arteries are patent. No evidence of large vessel occl usion, critical stenosis or aneurysm.There is mild to moderate stenosis of the intracranial segment o f right vertebral artery Neck:The aortic arch to the extent visualized as well as the origins of the right brachiocephalic, left common carotid, and left subclavian arteries are patent. The common carot id arteries, carotid bulbs and external carotid arteries are patent. Atheromatous plaques with about 70 % stenosis at the carotid bulb/proximal right internal carotid artery. Atheromatous plaques with a bout 50 % stenosis at the carotid bulb/proximal left internal carotid artery. The origins of the vert ebral arteries are unremarkable. The left vertebral artery is dominant. No evidence of vascular occlu niraj, dissection or aneurysm. The soft tissues of the neck are unremarkable. Degenerative changes are identified in the spine. Impression: Head: Mild to moderate stenosis of the intracranial segment of right vertebral artery .No evidence of large vessel occlusion, critical stenosis or aneurysm.Neck: A theromatous plaques with about 70 % stenosis at the right carotid bulb/proximal right internal carot id artery. Atheromatous plaques with about 50 % stenosis at the leftcarotid bulb/proximal left internal controls specialist al carotid artery. No evidence of vascular occlusion, dissection or aneurysm.Discussion Details: Res ults were verbally communicated to Uvaldo Juares A callback number is provided to sabra zarco direct [id number] communication. Time of verbal communication 07 : 02 am Repo rt Electronically Signed By: Lamberto Wills 07/31/2024 4:12:14 AM [EST]
--- NOTE | 2024-07-31 04:19 | XR_ITS ---
Examination: CT cervical spine without contrast 2-D sagittal reconstructions 2-D coronal reconstructions 3-D reconstructions. Exam date and time:July 31, 2024 0442 hrs. Indications: Neck pain and spasms with pain radiating to the arms beginning 10 days ago CTDI:vol (mGy) 12.96 DLP: (mGycm) 372 Technique: Multiple 2 mm axial sections of the cervical spine have been obtained. The coronal and sagittal reconstructions have been obtained. 3-D reconstructions have been obtained. Low dose protocols were performed. One or more of the following dose reduction techniques were used; automated exposure control, adjustment of the mA and/or KV according to patient size, use of iterative reconstruction technique. Findings: Axial sections demonstrate intact base of the skull. C1 exhibit satisfactory relationship to the odontoid. No acute cervical vertebral body fracture seen. Alignment posterior spinous processes satisfactory. C5-C6, C6-C7 advanced degenerative disc disease C3-C4 moderate bilateral neural foraminal stenosis C4-C5 moderate bilateral neural foraminal stenosis C5-C6 4 mm calcified central osteophyte disc complex moderate bilateral neural foraminal stenosis C6-C7 2 mm central osteophyte disc complex moderate bilateral neural foraminal stenosis Impression: No acute cervical fracture Advanced degenerative disc disease C5-C6, C6-C7 with spinal stenosis as above
--- NOTE | 2024-07-31 05:52 | PRELIM_ITS ---
CT scan of the cervical spine without intravenous contrast (axial sections with sagittal and coronal reformats). July 31, 2024 at 0442 hours Clinical History: Bilateral arm pain, neck spasm. Compari son: No prior study is available for comparison. Findings:There is no acute cervical fracture or trau matic subluxation. The paravertebral soft tissues are unremarkable. Calcified 1 cm left thyroid nodul e.Impression: No evidence of acute cervical fracture or traumatic subluxation. Report Electronically Signed By: Oz Isbell 07/31/2024 5:52:03 AM [EST]
--- NOTE | 2024-07-31 06:04 | PC.NURSE ---
CALLED TO NOTIFY HER THAT PATIENT IS BEING DISCHARGE AND WILL NEED A RIDE HOME. PATIENT STATED, SHE WILL TRY TO ARRANGE TRANSPORTATION HOME. I EXPLAINED TO THAT IF SHE IS NOT ABLE TO FIND ANYONE TO TRANSPORT PATIENT WILL CAN WAIT FOR ONLINE CONTENT COORDINATOR IN THE MORNING FOR TRANSPORTATION.
== END 2024-07-31 07:05 | disposition home or self-care (01) ==
LOC: SERX 06:40
PROVIDERS: Emergency Provider Emergency Medicine; PCP Family Medicine
DX: M79.601 Pain in right arm (principal); M79.602 Pain in left arm; D64.9 Anemia, unspecified; M54.2 Cervicalgia; R25.2 Cramp and spasm; I65.01 Occlusion and stenosis of right vertebral artery; I65.23 Occlusion and stenosis of bilateral carotid arteries; I67.82 Cerebral ischemia; I11.0 Hypertensive heart disease with heart failure; I50.9 Heart failure, unspecified; Z87.891 Personal history of nicotine dependence
CPT/HCPCS: 36415; 70450; 70496; 70498; 72125; 80053; 80307; 81001; 83735; 84484; 85025; 85610; 85730; 87077; 87086; 87186; 93005; 96365; 99291; A4649; J0696; J7050; Q9967

== ENCOUNTER → 2024-07-31 | Outpatient (BNVA) | payer MEDICARE, BC, SELFPAY | END | disposition home or self-care (01) | PROVIDERS: PCP Family Medicine; Referring Provider Family Medicine; Visit Provider Urology | DX: N40.1 Benign prostatic hyperplasia with lower urinary tract symptoms (principal); N13.8 Other obstructive and reflux uropathy; N28.89 Other specified disorders of kidney and ureter; I13.0 Hypertensive heart and chronic kidney disease with heart failure and stage 1 through stage 4 chronic kidney disease, or unspecified chronic kidney disease; N18.4 Chronic kidney disease, stage 4 (severe); I50.9 Heart failure, unspecified; D63.1 Anemia in chronic kidney disease; I25.10 Atherosclerotic heart disease of native coronary artery without angina pectoris; Z95.1 Presence of aortocoronary bypass graft; Z99.3 Dependence on wheelchair | CPT/HCPCS: 81003; 99202; G0463 ==

== ENCOUNTER 2024-08-21 14:55 | Emergency (ER) | payer MEDICARE, BC, SELFPAY ==
[2024-08-21] VITALS (11 sets, daily range): BP systolic 103–128; BP diastolic 59–76; PULSE 81–93; RESP 16–25; TEMP 36.4–36.7; O2SAT 95–100; BMI 23.6
--- NOTE | 2024-08-21 16:23 | PD.EDADULT ---
ED General RME/HPI General Chief complaint: General Adult/Misc Complain Stated complaint: ABNORMAL LABS Time Seen by Provider: 08/21/24 16:06 Arrival date/time: 08/21/24 14:55 RME / HPI RME / HPI narrative: DR. IRBY MAIN ED EVALUATION: 89 year old male with past medical history significant for CHF, CAD, HTN, GERD, BPH presents to the Emergency Department BIBA for a blood transfusion. Spouse called EMS after receiving a call from the doctor due to low blood cells . Related Data Home Medications ?Medication ?Instructions ?Recorded ?Confirmed aspirin 81 mg tablet 81 mg PO DAILY 08/16/23 07/31/24 carvedilol 25 mg tablet 25 mg PO BID 08/16/23 07/31/24 finasteride 5 mg tablet 5 mg PO DAILY 08/16/23 07/31/24 fluticasone propionate 50 1 spray intranasal BID 08/16/23 07/31/24 mcg/actuation nasal spray,suspension levothyroxine 25 mcg tablet 25 mcg PO DAILY 08/16/23 07/31/24 pantoprazole 40 mg tablet,delayed 40 mg PO DAILY 08/16/23 07/31/24 release sacubitril 49 mg-valsartan 51 mg 1 tab PO BID 08/16/23 07/31/24 tablet (Entresto) tamsulosin 0.4 mg capsule 0.4 mg PO DAILY 08/16/23 07/31/24 hydroxyzine HCl 50 mg tablet 50 mg PO QID PRN 07/31/24 07/31/24 Previous Rx's ?Medication ?Instructions ?Recorded acetaminophen 325 mg tablet 650 mg (2 x 325 mg) PO BID PRN 07/31/24 (Tylenol) pain #14 tabs Allergies Allergy/AdvReac Type Severity Reaction Status Date / Time No Known Allergies Allergy Verified 07/31/24 15:07 Review of Systems Review of Systems Systems Reviewed: All systems reviewed, normal except as documented Past Medical History Past Medical History NEUROLOGIC: Positive Neurological Disorders; Negative Cerebrovascular Accident, Transient Ischemic Attacks (TIA), Dementia, Alzheimer's Disease, Parkinson's Disease, Brain Tumor, Meningitis, Seizures, Epilepsy, Multiple Sclerosis, Cerebral Palsy, Amyotrophic Lateral Sclerosis (ALS/Sharlene Gehrig's), Guillain-[place] Syndrome, Spina Bifida, Paralysis, Peripheral Neuropathy, Stewart's Palsy, Subdural Hematoma, Migraine, Head Trauma, Spinal Cord Injury or Traumatic Brain Injury CARDIAC: Positive Cardiac Disorders (Pt. had open heart surgery 4 years ago and 1 stent placed 5 years ago.), Myocardial Infarction (2019), Cardiac Arrhythmia, Coronary Artery Disease, Hypercholesterolemia, Congestive Heart Failure, Valvular Heart Disease and Hypertension; Negative Atrial Fibrillation, Angina, Heart Murmur, Atherosclerotic Heart Disease, Peripheral Vascular Disease, Aneurysm, Congenital Heart Disease, Rheumatic Fever, Cardiomyopathy, Edema, Pericarditis, Cellulitis, Deep Vein Thrombosis, Hypotension or Varicose Veins RESPIRATORY: Positive Pneumonia and Sleep Apnea; Negative Chronic Obstructive Pulmonary Disease (COPD), Asthma, Bronchitis, Emphysema, Pulmonary Fibrosis, Cystic Fibrosis, Tuberculosis, Pulmonary Embolism or Pulmonary Edema GASTROINTESTINAL: Positive Gastrointestinal Disorders, Gall Bladder Disease and Gastroesophageal Reflux Disease; Negative Hepatitis, Cirrhosis, Pancreatitis, Celiac Disease, Gastrointestinal Bleed, Esophageal Varices, Joe's Esophagus, Colitis, Ulcerative Colitis, Diverticulitis, Diverticulosis, Ulcer, Colorectal Cancer, Irritable Bowel, Crohn's Disease, Obstructive Bowel, Hiatal Hernia, Hemorrhoids or Obesity GENITOURINARY: Positive Genitourinary Disorders, Renal Disease and Benign Prostatic Hyperplasia; Negative Kidney Stones, Polycystic Kidney Disease, Neurogenic Bladder, Inguinal Hernia, Dialysis or Prostate Cancer REPRODUCTIVE: Negative Testicular Cancer MUSCULOSKELETAL: Positive Musculoskeletal Disorders and Arthritis (Left shoulder.); Negative Muscular Dystrophy, Myasthenia Gravis, Marfan's Syndrome, Bone Cancer, Rheumatoid Arthritis, Osteoporosis, Degenerative Disk Disease, Gout, Scoliosis, Carpal Tunnel Syndrome, Fibromyalgia, Fractures, Degenerative Joint Disease, Osteomyelitis or Poliovirus ENT: Positive Cataracts (bilat); Negative Glaucoma, Blind, Retinal Detachment, Macular Degeneration, Ear Infection, Deafness, Head Trauma or Eye Prosthesis ENDOCRINE: Positive Hypothyroidism; Negative Endocrine Disorders, Diabetes Mellitus Type 1, Diabetes Mellitus Type 2, Hypoglycemia, Viral's Syndrome, [place]'s Disease, Hyperthyroidism, Parathyroid Disease, Pituitary Disease, Systemic Lupus Erythematosus, Syndrome of Inappropriate Antidiuretic Hormone (SIADH), Adrenal Disease or Graves' Disease HEMATOLOGIC: Positive Blood Disorders and Anemia; Negative Leukemia, Hemophilia, Thalassemia, Sickle Cell Disease or Clotting Problems PSYCHO/SOCIAL: Positive Anxiety; Negative Psychiatric Problems, Schizophrenia, Recreational Drug Use, Bipolar Disorder, Depression, Behavior Problems, Self-Mutilation, Attention Deficit Disorder, Attention Deficit Hyperactivity Disorder, Post Traumatic Stress Disorder or Eating Disorder OTHER HISTORY: Positive Hospitalization, Falls, Blood Transfusions, Chicken Pox, Measles and Cancer; Negative Autoimmune Disease, Down Syndrome, Autism, Developmental Delay, Shingles, Blood Transfusion Reaction, Anesthesia Reactions, Organ Transplant, Chemotherapy, Radiation Therapy, Hyperbaric Therapy, MRSA, VRSA, Vancomycin-Resistant Enterococci, Human Immunodeficiency Virus (HIV), Mumps, Rubella ([place] Measles), Pertussis, Clostridium Difficile, Colorectal Cancer, Lung Cancer, Prostate Cancer or Testicular Cancer Family History FAMILY HISTORY: Positive Family Cancer (sister had a brain tumor.) and Family Surgery; Negative Family Psychiatric Problems, Family Respiratory Disorders, Family Cardiac Disorders, Family Gastrointestinal Problems or Family Anesthesia Reaction Surgical History SURGICAL: Positive Cardiac Surgery, Open Heart Surgery, Coronary Artery Bypass Graft, Coronary Stent, Cardiac Catheterization, Pacemaker (05/27/2023), Angiogram, Auto Implanted Cardiovert Defib (defibrillator.), Nose Surgery (sinus surgery 1969), Oral Surgery (bottom lip skin cancer), Tonsillectomy, Abdominal Surgery and Vasectomy; Negative Valve Replacement, Vascular Surgery, Carotid Endarterectomy, Endocrine Surgery, Thyroidectomy, Ear Surgery, Tympanostomy Tube, Eye Surgery, Adenoidectomy, Cochlear Implant, Corneal Transplant, Throat Surgery, Tracheostomy, Gastric Bypass Surgery, Gastrostomy, Bowel Surgery, Nephrectomy, Transurethral Resection, Joint Replacement, Amputation, Open Reduction Internal Fixation, Arthroscopy, Neurologic Surgery, Brain Shunt or Organ Transplant Social History SMOKING STATUS: Never smoker SUBSTANCE USE: does not use ALCOHOL: Never ED Exam Narrative Physical exam: GENERAL APPEARANCE: alert and oriented x 4, well-developed, well-nourished, no acute distress, looks pale VITALS: All vitals were reviewed and the pulse ox is 98% on room air, which is normal according to my interpretation. HEENT: Normocephalic, atraumatic; pupils equal, round, reactive to light; EOMI; mucous membranes pink, moist; oropharynx clear NECK: Supple LUNGS: CTABL; no wheezes, no rales, no rhonchi HEART: Regular rate, regular rhythm; normal S1, S2; no murmurs ABDOMEN: non distended; normal BS; soft, no tenderness, no guarding, no rebound; no masses, no organomegaly, no hernia BACK: no CVA tenderness EXTREMITIES: atraumatic; no edema NEUROLOGIC: awake; alert and oriented x4; cranial nerves II-XII grossly intact; no focal sensory or motor deficits PSYCHIATRIC: appropriate mood and affect SKIN: warm, dry, normal color; no rashes Course Quality Measures none Orders Category Date Time Status Insert IV NOW Care 08/21/24 17:17 Active Transfuse,blood/blood products NOW Care 08/21/24 16:13 Active Red Blood Cells Stat Lab 08/21/24 16:51 Results Type and Screen Stat Lab 08/21/24 16:51 Results Reevaluation(s) Reevaluation #1: Patient remains clinically stable throughout the emergency department visit. Re-assessment at the time of disposition demonstrates that the patient is in no acute distress. We reviewed all the results, analysis, and treatment plans. Patient is amenable to discharge. Strict return precautions were outlined. Patient was discharged in stable condition. Time: 17:58 Vital Signs Vital signs: Vital Signs Temperature 97.7 F 08/21/24 15:34 Pulse Rate 93 08/21/24 15:34 Respiratory Rate 18 08/21/24 15:34 Blood Pressure 128/75 08/21/24 15:34 Pulse Oximetry (%) 98 08/21/24 15:34 Oxygen Delivery Method Room Air 08/21/24 15:34 MDM Patient data External records reviewed:: [facility] previous records (Reviewed urology note by Dr. Huerta, dated 07/31/24.) and EMS form Clinical information provided by:: patient and EMS Social determinants that could affect healthcare access:: none Patient has the following chronic illnesses:: CHF, CAD, HTN, GERD, BPH How is presenting disease/condition affected by chronic disease/condition?: exacerbated by Evaluation data The following diagnostics were reviewed and interpreted by me:: lab results Lab and/or radiology exams considered but not ordered:: none Interpretation Summary: Hemoglobin, 5.7. Medications Medications considered but not ordered:: none Medication administrations:: see above if any Consultations Consultation(s) initiated? (list below): No Diagnosis Differential Diagnosis ED Complaint MDM: anemia, abnormal labs, dehydration Most likely diagnosis given after review of the tests above:: Symptomatic anemia Transfusion of blood during current hospitalization Admission Indicated Admission indicated?: not indicated Explain why admission is indicated or not indicated:: Patient has no emergent abnormalities on his studies and can be managed on an outpatient basis. Admission Request Was there a request for admission?: No Disposition Plan Disposition Plan: Discharge Discharge Attestation Discharge Attestation: The patient and all family members were given an opportunity to ask questions and understood the discharge instructions. Discharge instructions specifically effects, indications for sooner follow up or return to the emergency department, and the expected course of current diagnosis. Patient condition: Stable Medical Decision Making MDM Narrative MDM Narrative: Tootie Kariebenitez Nowak, am scribing for and in the presence of Dr. Irby. Differential Diagnosis Differential Diagnosis: anemia, abnormal labs, dehydration Lab Data Labs: Lab Results 08/21/24 Range/Units 16:51 Blood Type O Positive Antibody Screen NEGATIVE Crossmatch See Detail Blood Bank Wristband ID Yes Discharge Plan Plan Patient Disposition: HOME (Self Care) Prescriptions/Referrals Prescriptions/Med Rec: No Action hydroxyzine HCl 50 mg tablet 50 mg PO QID PRN carvedilol 25 mg tablet 25 mg PO BID Patient Comments: TAKE 1 TABLET BY MOUTH TWICE A DAY levothyroxine 25 mcg tablet 25 mcg PO DAILY Patient Comments: TAKE 1 TABLET BY MOUTH EVERY DAY pantoprazole 40 mg tablet,delayed release (DR/EC) 40 mg PO DAILY Patient Comments: TAKE 1 TABLET BY MOUTH EVERY DAY 30 MINUTES BEFORE BREAKFAST finasteride 5 mg tablet 5 mg PO DAILY Entresto 49-51 mg tablet 1 tab PO BID Patient Comments: TAKE 1 TABLET BY MOUTH TWICE A DAY tamsulosin 0.4 mg capsule 0.4 mg PO DAILY aspirin 81 mg Tablet 81 mg PO DAILY Hold Instructions: Resume on 01/11/24. fluticasone propionate 50 mcg/actuation [place],Suspension 1 spray INTRANASAL BID acetaminophen [Tylenol] 325 mg tablet 650 mg PO BID PRN (Reason: pain) Qty: 14 0RF Referrals: Ray Gillette MD ([place]) [Primary Care Provider] - In 1 week Problem List Clinical Impression: Symptomatic anemia, Transfusion of blood during current hospitalization Patient/Caregiver Discharge Instructions Education Materials: ED Anemia Type Not Specified Print Language: Citizen Of [place] Stand Alone Forms: [employer]ony Award Info., Patient Portal Info Letter
[2024-08-22 00:59] VITALS: BP 108/71; PULSE 85; RESP 20; O2SAT 95
[2024-08-22 01:08] VITALS: BP 123/70; PULSE 88; RESP 14; TEMP 36.7; O2SAT 95
== END 2024-08-22 01:34 | disposition home or self-care (01) ==
PROVIDERS: Emergency Provider Emergency Medicine; PCP Family Medicine
DX: D64.9 Anemia, unspecified (principal); I11.0 Hypertensive heart disease with heart failure; I50.9 Heart failure, unspecified; I25.10 Atherosclerotic heart disease of native coronary artery without angina pectoris; K21.9 Gastro-esophageal reflux disease without esophagitis; N40.0 Benign prostatic hyperplasia without lower urinary tract symptoms
CPT/HCPCS: 36415; 36430; 86850; 86900; 86901; 86923; 99285; P9016

== ENCOUNTER → 2024-08-21 | Outpatient (CLI) | payer MEDICARE, BC, SELFPAY ==
[2024-08-21 12:08] LABS: Basophils # (Auto) 0.1 Thou/mm3 (0.0-0.2); Basophils % (Auto) 1 % (0-2.5); Eosinophils # (Auto) 0.1 Thou/mm3 (0.0-0.5); Eosinophils % (Auto) 4 % (0-10); Immature Granulocytes % (Auto) 1 % (0-0); Immature Granulocytes Auto 0.02 Thou/mm3 (0.00-0.00); Lymphocytes # (Auto) 1.3 Thou/mm3 (1.0-4.8); Lymphocytes % (Auto) 33 % (10-50); Mean Corpuscular HGB Conc 31.8 g/dl (31.0-37.0); Mean Corpuscular Hemoglobin 33.1 pg (25.0-35.0); Mean Corpuscular Volume 104 fL (80-100); Monocytes # (Auto) 0.2 Thou/mm3 (0.0-0.8); Monocytes % (Auto) 6 % (0-12); Neutrophils # (Auto) 2.1 Thou/mm3 (1.8-7.7); Neutrophils % (Auto) 56 % (37-80); Nucleated Red Blood Cell % 0 /100 WBC (0); Platelet Count 161 Thou/mm3 (140-440); RDW Standard Deviation 77.3 fL (35.1-43.9); Red Blood Count 1.72 Miln/mm3 (4.50-5.90); White Blood Count 3.9 Thou/mm3 (3.8-10.6)
[2024-08-21 12:23] LABS: Albumin, Serum 3.9 gm/dL (3.4-4.8); Anion Gap 8 (7-16); BUN/Creatinine Ratio 28 Ratio (12-20); Blood Urea Nitrogen 55 mg/dL (9-23); Calcium (Corrected) 9.1 mg/dL (8.5-10.1); Carbon Dioxide 23.1 mMol/L (20.0-31.0); Chloride 106 mMol/L (98-107); Glucose 97 mg/dL (74-106); Osmolality,Calculated 288 (275-295); Phosphorous 4.3 mg/dL (2.4-5.1); Potassium 4.6 mMol/L (3.4-5.1); Sodium 137 mMol/L (136-145); eGFR 32 See Note
[2024-08-21 12:25] LABS: Hematocrit 17.9 % (41.0-53.0)
[2024-08-21 12:26] LABS: Hemoglobin 5.7 g/dL (13.5-16.0)
== END | disposition home or self-care (01) ==
PROVIDERS: PCP Family Medicine; Referring Provider Internal Medicine Hematology & Oncology; Visit Provider Internal Medicine Cardiovascular Disease
DX: I50.22 Chronic systolic (congestive) heart failure (principal)
CPT/HCPCS: 36415; 80069; 85025

== ENCOUNTER → 2024-09-01 | Outpatient (CLI) | payer MEDICARE, BC, SELFPAY ==
[2024-09-01 12:03] LABS: Misc Send Out* See Sep Rpt
[2024-09-01 13:20] LABS: Basophils # (Auto) 0.1 Thou/mm3 (0.0-0.2); Basophils % (Auto) 1 % (0-2.5); Eosinophils % (Auto) 1 % (0-10); Hematocrit 21.5 % (41.0-53.0); Immature Granulocytes % (Auto) 1 % (0-0); Immature Granulocytes Auto 0.06 Thou/mm3 (0.00-0.00); Lymphocytes # (Auto) 0.7 Thou/mm3 (1.0-4.8); Lymphocytes % (Auto) 11 % (10-50); Mean Corpuscular HGB Conc 33.5 g/dl (31.0-37.0); Mean Corpuscular Hemoglobin 33.6 pg (25.0-35.0); Mean Corpuscular Volume 101 fL (80-100); Monocytes # (Auto) 1.3 Thou/mm3 (0.0-0.8); Monocytes % (Auto) 20 % (0-12); Neutrophils # (Auto) 4.3 Thou/mm3 (1.8-7.7); Neutrophils % (Auto) 67 % (37-80); Nucleated Red Blood Cell % 0 /100 WBC (0); Platelet Count 155 Thou/mm3 (140-440); Red Blood Count 2.14 Miln/mm3 (4.50-5.90); White Blood Count 6.4 Thou/mm3 (3.8-10.6)
[2024-09-01 13:21] LABS: Hemoglobin 7.2 g/dL (13.5-16.0)
[2024-09-01 15:14] LABS: Albumin, Serum 3.7 gm/dL (3.4-4.8); Anion Gap 10 (7-16); BUN/Creatinine Ratio 31 Ratio (12-20); Blood Urea Nitrogen 55 mg/dL (9-23); Calcium 9.1 mg/dL (8.3-10.6); Calcium (Corrected) 9.3 mg/dL (8.5-10.1); Carbon Dioxide 21.6 mMol/L (20.0-31.0); Chloride 105 mMol/L (98-107); Creatinine (Component) 1.8 mg/dL (0.6-1.3); Glucose 98 mg/dL (74-106); Osmolality,Calculated 288 (275-295); Phosphorous 3.1 mg/dL (2.4-5.1); Potassium 4.4 mMol/L (3.4-5.1); Sodium 137 mMol/L (136-145); eGFR 36 See Note
[2024-09-03 02:17] LABS: Ferritin 737 ng/mL (10.5-307.3); Total Iron Binding Capacity 176 mcg/dL (250-425)
[2024-09-03 02:29] LABS: Iron 89 mcg/dL (65-175); Percent Iron Saturation 50 % (20-55); Unsaturated Iron Binding 87 (225-295)
== END | disposition home or self-care (01) ==
PROVIDERS: PCP Family Medicine; Referring Provider Internal Medicine; Visit Provider Internal Medicine
DX: N18.4 Chronic kidney disease, stage 4 (severe) (principal); D63.1 Anemia in chronic kidney disease; I50.9 Heart failure, unspecified; R60.9 Edema, unspecified; D40.0 Neoplasm of uncertain behavior of prostate; D41.02 Neoplasm of uncertain behavior of left kidney; D41.01 Neoplasm of uncertain behavior of right kidney; R10.31 Right lower quadrant pain; N28.1 Cyst of kidney, acquired
CPT/HCPCS: 36415; 80069; 82728; 83540; 83550; 84466; 85025

== ENCOUNTER 2024-09-04 10:06 | Inpatient (IN) | payer MEDICARE, BC, SELFPAY ==
[2024-09-04] VITALS (20 sets, daily range): BP systolic 87–112; BP diastolic 47–69; PULSE 86–104; RESP 16–28; TEMP 36.4–37.4; O2SAT 91–100; BMI 24.1
--- NOTE | 2024-09-04 10:18 | EKG_ITS ---
[facility] Test Date: 2024-09-04 Pat Name: CHRISTIANE COTTRELL Department: Room: - Gender: Male Regulatory Technician: : 1935 Requested By: Blanco Solis (VÍCTOR) Order Number: [id number] Reading MD: Blanco Solis (FIELD TRAINING AGENT) Measurements Intervals [place] Rate: 104 P: 140 UT: 137 QRS: 148 QRSD: 192 T: 60 QT: 389 QTc: 512 Interpretive Statements ELECTRONIC VENTRICULAR PACEMAKER ABNORMAL RHYTHM ECG Compared to ECG 08/15/2023 16:08:42 Sinus rhythm no longer present Left-axis deviation no longer present Left bundle-branch block no longer present /store/[id number]
--- NOTE | 2024-09-04 10:31 | XR_ITS ---
Examination: AP chest single view TECHNIQUE: AP portable semiupright chest single view Exam date and time: September 04, 2024 1139 hours Comparison January 16, 2024 INDICATIONS: Chest pain shortness of breath today, jaundice FINDINGS: Bilateral pneumonia, significant diffuse in the left lung Mild vascular congestion Mild prominence left ventricle Possible left pleural effusion Cardiac leads stable position IMPRESSION: Bilateral pneumonia, significant and diffuse in the left lung
--- NOTE | 2024-09-04 10:46 | PD.EDCHEST ---
ED Chest Pain RME/HPI General Chief Complaint: Chest Pain Stated Complaint: CHEST PAIN, SOB, ANAHYANDICE '; SENT BY KIDNEY DR Time Seen by Provider: 09/04/24 10:13 Arrival date/time: 09/04/24 10:06 RME / HPI RME / HPI narrative: This section includes all my notes and documentations, including HPI, PE, and ED course.? Thomas Carlos MD HPI: 89 year old male with history of CHF, ischemic cardiomyopathy, defibrillator implant that was removed ~ 1 year ago due to MRSA bacteremia treated at [facility] presents to the ED brought in by son for evaluation of cough and shortness of breath for a week or more. Accompanied by chest pain. State they consulted with their delivery driver/supervisor today who advised patient come to the ED for further evaluation and treatment. No other complaints. ROS: All negative except as documented in HPI. Physical Exam: General:? Alert and oriented.? In moderate respiratory distress. Hypoxia noted needing oxygen. Eyes:? Conjunctivae and lids clear.? ENT:? No nasal congestion.??Pharynx normal. TM normal bilaterally. Neck:? Supple.? No JVD. Heart: Sinus tachycardia noted. Lungs: In moderate respiratory distress.? Moderately decreased air movement with bilateral rales. Abdomen:? Soft and nontender.?? Legs:? No clubbing, cyanosis, pitting edema.? Skin:? Warm and dry.?? Neuro:? Alert and oriented X 3.?? I reviewed all diagnostic test results. My interpretation of the EKG is?paced rhythm (108 bpm). My interpretation of the chest x-ray is bilateral pneumonia. Blood tests remarkable for Hgb 6.4, D-dimer > 3820, CR 2.3, LA 4.1, Mg 1.5, BNP 3163. UA At this point, diagnoses include: Sepsis, Severe anemia, Influenza, CHF (congestive heart failure), Pneumonia, Hypomagnesemia, Acute respiratory failure with hypoxia, Elevated D-dimer. Treatment here included?Rocephin and Zithromax and topical NTG and morphine and Lasix and MgSO4 2 gram IV. Significant improvement not noted. I discussed the case with our hospitalist.? About the presentation and exam and diagnostics and treatments here.? And need of further care in the hospital.? Will accept the patient. Thomas Carlos MD Related Data Home Medications ?Medication ?Instructions ?Recorded ?Confirmed aspirin 81 mg tablet 81 mg PO DAILY 08/16/23 07/31/24 carvedilol 25 mg tablet 25 mg PO BID 08/16/23 07/31/24 finasteride 5 mg tablet 5 mg PO DAILY 08/16/23 07/31/24 fluticasone propionate 50 1 spray intranasal BID 08/16/23 07/31/24 mcg/actuation nasal spray,suspension levothyroxine 25 mcg tablet 25 mcg PO DAILY 08/16/23 07/31/24 pantoprazole 40 mg tablet,delayed 40 mg PO DAILY 08/16/23 07/31/24 release sacubitril 49 mg-valsartan 51 mg 1 tab PO BID 08/16/23 07/31/24 tablet (Entresto) tamsulosin 0.4 mg capsule 0.4 mg PO DAILY 08/16/23 07/31/24 hydroxyzine HCl 50 mg tablet 50 mg PO QID PRN 07/31/24 07/31/24 Previous Rx's ?Medication ?Instructions ?Recorded acetaminophen 325 mg tablet 650 mg (2 x 325 mg) PO BID PRN 07/31/24 (Tylenol) pain #14 tabs Allergies Allergy/AdvReac Type Severity Reaction Status Date / Time No Known Allergies Allergy Verified 09/04/24 10:08 Review of Systems Review of Systems Systems Reviewed: All systems reviewed, normal except as documented Past Medical History Past Medical History NEUROLOGIC: Positive Neurological Disorders CARDIAC: Positive Cardiac Disorders (pace/defib), Myocardial Infarction, Cardiac Arrhythmia, Coronary Artery Disease, Hypercholesterolemia, Congestive Heart Failure, Valvular Heart Disease and Hypertension RESPIRATORY: Positive Pneumonia and Sleep Apnea GASTROINTESTINAL: Positive Gastrointestinal Disorders, Gall Bladder Disease and Gastroesophageal Reflux Disease GENITOURINARY: Positive Genitourinary Disorders, Renal Disease and Benign Prostatic Hyperplasia MUSCULOSKELETAL: Positive Musculoskeletal Disorders and Arthritis ENT: Positive Cataracts ENDOCRINE: Positive Hypothyroidism HEMATOLOGIC: Positive Blood Disorders and Anemia PSYCHO/SOCIAL: Positive Anxiety OTHER HISTORY: Positive Hospitalization, Falls, Blood Transfusions, Chicken Pox, Measles and Cancer Family History FAMILY HISTORY: Positive Family Cancer and Family Surgery; Negative Family Psychiatric Problems, Family Respiratory Disorders, Family Cardiac Disorders, Family Gastrointestinal Problems or Family Anesthesia Reaction Surgical History SURGICAL: Positive Cardiac Surgery, Open Heart Surgery, Coronary Artery Bypass Graft, Coronary Stent, Cardiac Catheterization, Pacemaker, Angiogram, Auto Implanted Cardiovert Defib, Nose Surgery, Oral Surgery, Tonsillectomy, Abdominal Surgery and Vasectomy; Negative Valve Replacement, Vascular Surgery, Carotid Endarterectomy, Endocrine Surgery, Thyroidectomy, Ear Surgery, Tympanostomy Tube, Eye Surgery, Adenoidectomy, Cochlear Implant, Corneal Transplant, Throat Surgery, Tracheostomy, Gastric Bypass Surgery, Gastrostomy, Bowel Surgery, Nephrectomy, Transurethral Resection, Joint Replacement, Amputation, Open Reduction Internal Fixation, Arthroscopy, Neurologic Surgery or Brain Shunt Social History SMOKING STATUS: Never smoker SUBSTANCE USE: does not use ED Exam Narrative Physical exam: As noted in HPI Course Course Course Narrative: chest xray ordered to help determine etiology of chest pain. Quality Measures none Orders Category Date Time Status Bedside COVID-19 Antigen Test NOW Care 09/04/24 10:49 Active Bedside Influenza A&B Antigen Test NOW Care 09/04/24 10:49 Completed COVID-19 Screening Questionnaire NOW Care 09/04/24 13:27 Active Decision to Admit X1 Care 09/04/24 13:27 Active EKG (ED ONLY) *Do not use* NOW Care 09/04/24 10:18 Completed Douglass to Leg Bag Routine Care 09/04/24 12:52 Ordered Insert IV NOW Care 09/04/24 10:32 Active Transfuse,blood/blood products NOW Care 09/04/24 13:00 Active EKG (ED Only) Stat Exams 09/04/24 10:18 Draft XR chest 1V portable Stat Exams 09/04/24 10:31 Completed ABG [Arterial Blood Gas] Stat Lab 09/04/24 11:10 Completed B-Type Natriuretic Peptide Stat Lab 09/04/24 11:14 Completed CBC Stat Lab 09/04/24 11:14 Completed CRP [C-Reactive Protein] Stat Lab 09/04/24 11:14 Completed Comprehensive Metabolic Panel Stat Lab 09/04/24 11:14 Completed D-Dimer Stat Lab 09/04/24 11:14 Completed Drug Screen,Urine Stat Lab 09/04/24 13:00 Completed ESR [Sed Rate (ESR)] Stat Lab 09/04/24 11:14 Completed Lactate (Lactic Acid) Stat Lab 09/04/24 11:14 Results Magnesium Stat Lab 09/04/24 11:14 Completed Partial Thromboplastin Time Stat Lab 09/04/24 11:14 Completed Procalcitonin Stat Lab 09/04/24 11:14 Completed Prothrombin Time with INR Stat Lab 09/04/24 11:14 Completed RSV [Respiratory Syncytial Virus Ag] Stat Lab 09/04/24 11:39 Completed Red Blood Cells Stat Lab 09/04/24 11:14 Results TSH [Thyroid Stimulating Hormone] Stat Lab 09/04/24 11:14 Completed Troponin I Stat Lab 09/04/24 11:14 Completed Type and Screen Stat Lab 09/04/24 11:14 Results Urinalysis Stat Lab 09/04/24 13:00 Received Azithromycin Inj [Zithromax Inj] 500 mg Med 09/04/24 12:43 Active Sodium Chloride 0.9% 250 ml [Ns] 250 ml IV X1 Furosemide Inj [Lasix Inj] Med 09/04/24 10:50 Discontinued 20 mg IVP X1 ONE Magnesium Sulfate 2 GM Ivpb [Magnesium Sulfate Ivpb] Med 09/04/24 12:43 Active 2 gm in 50 ml IV X1 Morphine Inj Med 09/04/24 10:50 Discontinued 1 mg IVP X1 ONE Nitroglycerin Oint 2% [Nitro-paste Oint 2%] Med 09/04/24 10:50 Discontinued 0.5 inch TOP X1 ONE Oseltamivir [Tamiflu] Med 09/04/24 12:36 Discontinued 75 mg PO X1 ONE cefTRIAXone [Rocephin] 1,000 mg Med 09/04/24 12:10 Discontinued Sodium Chloride 0.9% (P) [Ns 0.9% (P)] 50 ml IV X1 cefTRIAXone [Rocephin] 1,000 mg Med 09/04/24 12:43 Discontinued Sodium Chloride 0.9% (P) [Ns 0.9% (P)] 50 ml IV X1 Vital Signs Vital signs: Vital Signs Temperature 98.0 F 09/04/24 10:34 Pulse Rate 104 H 09/04/24 10:34 Respiratory Rate 22 H 09/04/24 10:34 Blood Pressure 92/50 L 09/04/24 10:34 Pulse Oximetry (%) 91 L 09/04/24 10:34 Oxygen Delivery Method Room Air 09/04/24 10:34 Pulse ox is 91% on room air which is low. Chest Pain MDM Narrative MDM Narrative:: IAna am scribing for and in the presence of Dr. Carlos. Patient data External records reviewed:: [facility] previous records (I reviewed ED visit on 08/21/2024) Clinical information provided by:: patient and family Social determinants that could affect healthcare access:: none Patient has the following chronic illnesses:: CHF, ischemic cardiomyopathy, defibrillator implant that was removed ~ 1 year ago due to MRSA bacteremia treated at [facility] How is presenting disease/condition affected by chronic disease/condition?: exacerbated by Evaluation data The following diagnostics were reviewed and interpreted by me:: lab results, radiology exam(s) and EKG tracing(s) (Paced rhythm (108 bpm). Thomas Carlos MD) Lab and/or radiology exams considered but not ordered:: None Interpretation Summary: Sepsis, Severe anemia, Influenza, CHF (congestive heart failure), Pneumonia, Hypomagnesemia, Acute respiratory failure with hypoxia, elevated D-dimer. Medications / Prescriptions Medications or Prescriptions considered but not ordered:: None Medication administrations:: Medication Administration History Azithromycin 500 mg/ Sodium (Chloride) 250 mls @ 250 mls/hr IV X1 ONE Stop: 09/04/24 13:42 Magnesium Sulfate (Magnesium Sulfate Ivpb) 2 gm in 50 mls @ 25 mls/hr IV X1 ONE Stop: 09/04/24 14:42 Discontinued Medications Furosemide (Furosemide Inj 10 Mg/Ml 4ml Vial) 20 mg IVP X1 ONE Stop: 09/04/24 10:51 Last Admin: 09/04/24 11:26 Dose: 20 mg Documented By: DO Ceftriaxone Sodium 1,000 mg/ (Sodium Chloride) 50 mls @ 100 mls/hr IV X1 ONE Stop: 09/04/24 12:39 Last Admin: 09/04/24 12:45 Dose: 100 mls/hr Documented By: DO Ceftriaxone Sodium 1,000 mg/ (Sodium Chloride) 50 mls @ 100 mls/hr IV X1 ONE Stop: 09/04/24 13:12 Last Admin: 09/04/24 13:09 Dose: Not Given Documented By: DO Non-Admin Reason: Duplicate Medication on eMAR Morphine Sulfate (Morphine Sulf Inj 10 Mg/Ml Vial) 1 mg IVP X1 ONE Stop: 09/04/24 10:51 Last Admin: 09/04/24 11:32 Dose: Not Given Documented By: DO Non-Admin Reason: held. bp low Nitroglycerin (Nitroglycerin Oint 2% 1 Inch Packet) 0.5 inch TOP X1 ONE Stop: 09/04/24 10:51 Last Admin: 09/04/24 11:27 Dose: 0.5 inch Documented By: DO Oseltamivir Phosphate (Oseltamivir 75 Mg Capsule) 75 mg PO X1 ONE Stop: 09/04/24 12:37 Last Admin: 09/04/24 12:44 Dose: 75 mg Documented By: DO Rocephin and Zithromax and Lasix and morphine and topical NTG and MgSO4 2 gram IV. Consultations Consultation(s) initiated? (list below): Yes Consultation #1 (Physician, Specialty, Details): I spoke with hospitalist Dr. Bautista. Discussed patients HPI, ED course, exam findings, labs, and radiology results. The hospitalist agree to accept the patient for admission. Diagnosis Chest Pain Differential Diagnosis: pneumothorax, stable angina, unstable angina pectoris, atypical chest pain, st elevation myocardial infarction, costochondritis, chest pain, biliary colic and other (Sepsis, COVID, influenza, electrolyte abnormalities) Most likely diagnosis given after review of the tests above:: Sepsis Severe anemia Influenza CHF Pneumonia Hypomagnesemia Acute respiratory failure with hypoxia Admission Indicated Admission indicated?: indicated Explain why admission is indicated or not indicated:: Respiratory failure and sepsis and severe anemia Admission Request Was there a request for admission?: Yes Admission Attestation Admission request attestation: Discussed case with our hospitalist service regarding admission. Discussed patients ED course, exam findings, labs, and radiology results. The Hospitalist [agrees,declines] to accept the patient for admission. Disposition Plan Disposition Plan: Admit Critical Care Time Critical Care Time Critical Care Time: Yes Total Critical Care Time (min.): 36 Attestation: Due to a high probability of clinically significant, life threatening deterioration, the patient required my highest level of preparedness to intervene emergently and I personally spent this critical care time directly and personally managing the patient. This critical care time included obtaining a history; examining the patient; ordering and review of studies; arranging urgent treatment with development of a management plan; evaluation of patient's response to treatment; frequent reassessment; and discussions with family and other providers. It was exclusive of separately billable procedures and treating other patients and teaching time. Thomas Carlos MD Discharge Plan Plan Patient Disposition: Admit Acute Care w/in Hospital Prescriptions/Referrals Prescriptions/Med Rec: No Action hydroxyzine HCl 50 mg tablet 50 mg PO QID PRN carvedilol 25 mg tablet 25 mg PO BID Patient Comments: TAKE 1 TABLET BY MOUTH TWICE A DAY levothyroxine 25 mcg tablet 25 mcg PO DAILY Patient Comments: TAKE 1 TABLET BY MOUTH EVERY DAY pantoprazole 40 mg tablet,delayed release (DR/EC) 40 mg PO DAILY Patient Comments: TAKE 1 TABLET BY MOUTH EVERY DAY 30 MINUTES BEFORE BREAKFAST finasteride 5 mg tablet 5 mg PO DAILY Entresto 49-51 mg tablet 1 tab PO BID Patient Comments: TAKE 1 TABLET BY MOUTH TWICE A DAY tamsulosin 0.4 mg capsule 0.4 mg PO DAILY aspirin 81 mg Tablet 81 mg PO DAILY Hold Instructions: Resume on 01/11/24. fluticasone propionate 50 mcg/actuation [place],Suspension 1 spray INTRANASAL BID acetaminophen [Tylenol] 325 mg tablet 650 mg PO BID PRN (Reason: pain) Qty: 14 0RF Referrals: Nain (PCP),MD Ray [Primary Care Provider] - In 1 week Problem List Clinical Impression: Sepsis, Severe anemia, Influenza, CHF (congestive heart failure), Pneumonia, Hypomagnesemia, Acute respiratory failure with hypoxia, Elevated d-dimer Patient/Caregiver Discharge Instructions Print Language: Tajik Stand Alone Forms: Ebony Award Info., Patient Portal Info Letter
[2024-09-04 11:12] LABS: Base Excess -6 (-3-3); HCO3 18 mEq/L (20-26); Inspired Oxygen, FIO2 21 %; O2 Saturation 48 % (91-98); PCO2 27 mmHg (32.0-48.0); pH, Arterial 7.43 (7.35-7.45)
[2024-09-04 11:17] LABS: Allen Test Performed/OK; PO2 28 mmHg (83-108); Puncture Site Right Radial
[2024-09-04] MEDS: FUROSEMIDE INJ 10 MG/ML 4ML VIAL 20 MG IVP (11:26)
[2024-09-04] MEDS: NITROGLYCERIN OINT 2% 1 INCH PACKET 0.5 INCH TOP (11:27)
[2024-09-04 11:36] LABS: Basophils % (Auto) 0 % (0-2.5); Eosinophils % (Auto) 0 % (0-10); Immature Granulocytes % (Auto) 1 % (0-0); Immature Granulocytes Auto 0.04 Thou/mm3 (0.00-0.00); Lymphocytes # (Auto) 0.4 Thou/mm3 (1.0-4.8); Lymphocytes % (Auto) 7 % (10-50); Mean Corpuscular HGB Conc 32.8 g/dl (31.0-37.0); Mean Corpuscular Hemoglobin 33.3 pg (25.0-35.0); Mean Corpuscular Volume 102 fL (80-100); Monocytes # (Auto) 0.6 Thou/mm3 (0.0-0.8); Monocytes % (Auto) 10 % (0-12); Neutrophils # (Auto) 4.5 Thou/mm3 (1.8-7.7); Neutrophils % (Auto) 82 % (37-80); Nucleated Red Blood Cell % 0 /100 WBC (0); Platelet Count 120 Thou/mm3 (140-440); RDW Standard Deviation 73.5 fL (35.1-43.9); Red Blood Count 1.92 Miln/mm3 (4.50-5.90); White Blood Count 5.6 Thou/mm3 (3.8-10.6)
[2024-09-04 11:39] LABS: Hematocrit 19.5 % (41.0-53.0)
[2024-09-04 11:54] LABS: B-Type Natriuretic Peptide 3163 pg/mL (0-100)
[2024-09-04 12:01] LABS: D-Dimer > 3820 ng/mL (<600)
[2024-09-04 12:03] LABS: Lactate (Lactic Acid) 4.1 mMol/L (0.4-2.0)
[2024-09-04 12:04] LABS: Alanine Aminotransferase 134 U/L (10-49); Albumin, Serum 3.9 gm/dL (3.4-4.8); Alkaline Phosphatase 82 U/L (46-116); Anion Gap 13 (7-16); Aspartate Amino Transferase 138 U/L (0-34); BUN/Creatinine Ratio 33 Ratio (12-20); Bilirubin,Total 1.2 mg/dL (0.3-1.2); Blood Urea Nitrogen 76 mg/dL (9-23); C-Reactive Protein 27.5 mg/dL (0.0-0.9); Calcium 9.4 mg/dL (8.3-10.6); Calcium (Corrected) 9.5 mg/dL (8.5-10.1); Carbon Dioxide 15.6 mMol/L (20.0-31.0); Chloride 104 mMol/L (98-107); Creatinine (Component) 2.3 mg/dL (0.6-1.3); Estimated Creatinine Clearance 21.9 mL/min (>60); Glucose 133 mg/dL (74-106); Magnesium 1.5 mg/dL (1.6-2.6); Osmolality,Calculated 290 (275-295); Potassium 4.4 mMol/L (3.4-5.1); Procalcitonin 12.69 ng/ml (0.0-0.49); Sodium 133 mMol/L (136-145); Total Protein 7.9 gm/dL (5.7-8.2); Troponin I 0.034 ng/mL (0.0-0.045); eGFR 27 See Note
[2024-09-04 12:08] LABS: INR 1.3 (0.9-1.3); Partial Thromboplastin Time 24.8 Seconds (22.0-36.0)
[2024-09-04 12:26] LABS: Respiratory Syncytial Virus Ag Negative (Negative)
[2024-09-04 12:28] LABS: Sed Rate (ESR) 70 mm/hr (0-20)
[2024-09-04] MEDS: OSELTAMIVIR 75 MG CAPSULE PO (12:44)
[2024-09-04] MEDS: cefTRIAXone 1,000 MG in SODIUM CHLORIDE 0.9% (P) 50 ML 100 MG IV (12:45)
[2024-09-04 12:55] LABS: Hemoglobin 6.4 g/dL (13.5-16.0)
[2024-09-04 13:11] LABS: Collection Type, Urine Clean Catch
[2024-09-04 13:31] LABS: Amphetamine/Methamp Scrn,U Negative (Negative); Barbiturate Screen,Urine Negative (Negative); Benzodiazepines Screen,Urine Negative (Negative); Benzoylecgonine Screen, Ur Negative (Negative); Fentanyl Screen,Urine Negative (Negative); Opiate Screen,Urine Negative (Negative); THC Screen,Urine Negative (Negative)
[2024-09-04 13:59] LABS: Bacteria,Urine 3+; Bilirubin,Urine Negative (Negative); Blood,Urine 2+ (Negative); Glucose, Urine Negative (Negative); Ketones,Urine Negative (Negative); Leukocyte Esterase,Urine Positive (Negative); Nitrite,Urine Negative (Negative); Protein,Urine 1+ (Neg - Trace); RBC,Urine 35 /hpf (0-3); Specific Gravity,Urine 1.012 (1.001-1.035); Squamous Epithelial Cell,Urine 5 /hpf (0-5); Urobilinogen,Urine Negative mg/dL (0.0-1.0); WBC,Urine 3379 /hpf (0-5)
[2024-09-04 14:03] LABS: Clarity,Urine Cloudy (Clear/Hazy); Color,Urine Lt-Yellow (Lt Yel-Yel)
[2024-09-04 14:22] LABS: Reflex Lactate? Y
[2024-09-04] MEDS: AZITHROMYCIN INJ 500 MG in SODIUM CHLORIDE 0.9% 250 ML 250 ML 250 MG IV (14:32)
--- NOTE | 2024-09-04 14:36 | PD.RESHP ---
Documentation for date of: 09/04/24 HPI History of Present Illness Chief complaint: SOB, cough, chest pain History of present illness: 89-year-old male with extensive past medical history of HFrEF (20 to 25% EF 2022), ischemic cardiomyopathy, CAD s/p CABG, MRSA bacteremia, defibrillator, hypertension, GERD, BPH, CKD stage IV, hypothyroidism, chronic anemia requiring multiple blood transfusion, and potential myelodysplastic syndrome was admitted to the hospital on 09/04/2024 after coming to the ED with cough, shortness of breath, and chest pain. Patient was accompanied by son at bedside, but were poor historians. During assessment patient stated that around 2 days ago he started developing a productive cough, and today he became short of breath. He mentioned that today he saw his didactic instructor and while he was at his didactic instructor he was having chills and then some chest pain developed which she stated was on the left side and radiated to his left shoulder blade. Patient also stated that he did have some numbness below his nose, but that he did not have any pain in his left arm or left face nor did he have any numbness. Patient lives at [facility] and is unaware if he has had any sick contacts. He states that he has been feeling weak as well and has been unable to walk the past few days due to weakness and that this happens on and off. Patient states that he has needed multiple blood transfusions in the past due to chronic anemia, but upon chart review patient does have bone marrow biopsy which came back with concerns for possible myelodysplastic syndrome. On admission patient's hemoglobin was 6.4 for which 2 unit of PRBC were going to be transfused in the ED. ED course: Initially came into tachypneic, tachycardic, hypoxic, mildly hypotensive, and afebrile. Initial labs were relevant for low hemoglobin (6.4), thrombocytopenia (121), ABG showed hypoxemia with a pO2 of 28, mild hyponatremia (133), metabolic acidosis (bicarb 15.6), elevated BUN at 76 and elevated creatinine at 2.3, lactic acidosis (4.1), hypomagnesemia (1.5, transaminitis (AST 138 and ALT 134), elevated CRP (27.5), elevated BNP 3163, elevated procalcitonin (12.69), elevated TSH (5.9), and UA was positive for bacteria. Patient was positive for flu. Initial imaging included EKG which showed paced rhythm and chest x-ray which showed bilateral pneumonia. PMH: As above Social Hx: Denies any drugs, smoking (quit 50 years ago), or alcohol Surgical Hx: CABG and cholecystectomy Review of Systems Review of Systems Narrative Review of Systems: Constitutional: Denies sweats, Denies weight loss/gain, Denies fever, Admits chills. HEENT: Denies hearing loss, Denies ear pain, Denies postnasal drip, Denies double vision, Denies blurry vision. Respiratory: Admits shortness of breath, Admits cough, Denies wheezing. Cardiovascular: Admits chest pain, Denies palpitations, Denies sudden loss of consciousness. GI: Denies blood in stool, Denies constipation, Denies abdominal pain, Denies difficulty swallowing, Denies nausea or vomit. : Denies urinary incontinence, Denies pain while urinating, Denies increased urinary frequency. MSK: Denies joint pain, Denies joint swelling, Denies numbness. Skin: Denies rash, Denies itching, Denies easy bruising. Neuro: Denies headaches, Denies dizziness, Denies seizures. Exam Vital Signs Temp Pulse Resp BP Pulse Ox O2 Del Method O2 Flow Rate 98.0 F 95 16 95/58 L 95 Nasal Cannula 2 09/04/24 14:08 09/04/24 14:08 09/04/24 14:08 09/04/24 14:08 09/04/24 14:08 09/04/24 12:21 09/04/24 14:08 Narrative Exam General: A/O x3, ill appearing elderly male Eyes: PERRL, EOMI. icteric, vision grossly intact. Ears: No ear pain, no ear discharge, Hearing grossly intact. Nose: No nasal discharge. Mouth/Throat: Dry mucous membranes, no redness, no lesions. Neck: Neck supple, non-tender, no cervical lymphadenopathy. Lungs: Clear SHAHEEN to auscultation and percussion, No accessory muscle use. Cardio: Normal S1/S2, regular rhythm, no murmurs, no JVD Abdomen: Soft, non-tender, no palpable masses, peristalsis present, no guarding or rebound. Extremities: Symmetrical, no significant deformities, 1+ peripheral edema SHAHEEN upto knee level, non-tender, peripheral pulses presents. Skin: No rashes, no lesions, warm to touch. Neuro: No focal neurological deficits. motor and sensory intact, SHAHEEN LE strength 4/5 and UE 5/5 Psych: Cooperative, appropriate mood and effect. Results: Labs 09/04/24 11:14 09/04/24 11:14 Labs: Short CBC 09/04/24 Range/Units 11:14 WBC 5.6 (3.8-10.6) Thou/mm3 Hgb 6.4 L* (13.5-16.0) g/dL Hct 19.5 L* (41.0-53.0) % Plt Count 120 L D (140-440) Thou/mm3 BMP 09/04/24 11:14 Sodium 133 L Potassium 4.4 Chloride 104 Carbon Dioxide 15.6 L BUN 76 H Creatinine 2.3 H D Glucose 133 H Calcium 9.4 Cardiac Enzymes 09/04/24 Range/Units 11:14 Troponin I 0.034 (0.0-0.045) ng/mL Liver Function 09/04/24 Range/Units 11:14 Total Bilirubin 1.2 (0.3-1.2) mg/dL AST 138 H (0-34) U/L ALT 134 H (10-49) U/L Alkaline Phosphatase 82 (46-116) U/L Albumin 3.9 (3.4-4.8) gm/dL Urine 09/04/24 Range/Units 13:00 Urine Color Lt-Yellow (Lt Yel-Yel) Urine Clarity Cloudy A (Clear/Hazy) Urine pH 6.0 (5.0-7.0) Ur Specific Seymour 1.012 (1.001-1.035) Urine Protein 1+ A (Neg - Trace) Urine Glucose (UA) Negative (Negative) ABG Interpretation ABG results: 09/04/24 11:10 ABG pH 7.43 ABG pCO2 27 L ABG pO2 28 L* ABG HCO3 18 L ABG O2 Saturation 48 L ABG Base Excess -6 L Quality Measures Quality Measures none Advance care planning discussed with:: patient Medications Home Medications and Allergies Home Medications ?Medication ?Instructions ?Recorded ?Confirmed ?Type aspirin 81 mg tablet 81 mg PO DAILY 08/16/23 07/31/24 History carvedilol 25 mg tablet 25 mg PO BID 08/16/23 07/31/24 History finasteride 5 mg tablet 5 mg PO DAILY 08/16/23 07/31/24 History fluticasone propionate 50 1 spray intranasal BID 08/16/23 07/31/24 History mcg/actuation nasal spray,suspension levothyroxine 25 mcg tablet 25 mcg PO DAILY 08/16/23 07/31/24 History pantoprazole 40 mg tablet,delayed 40 mg PO DAILY 08/16/23 07/31/24 History release sacubitril 49 mg-valsartan 51 mg 1 tab PO BID 08/16/23 07/31/24 History tablet (Entresto) tamsulosin 0.4 mg capsule 0.4 mg PO DAILY 08/16/23 07/31/24 History hydroxyzine HCl 50 mg tablet 50 mg PO QID PRN 07/31/24 07/31/24 History Allergies Allergy/AdvReac Type Severity Reaction Status Date / Time No Known Allergies Allergy Verified 09/04/24 10:08 Visit Medications Acetaminophen (Acetaminophen 325 Mg Tablet) 650 mg PO Q6H PRN PRN Reason: pain and Fever >100.4 Stop: 10/04/24 14:20 Hydrocodone Bitart/Acetaminophen (Hydrocodone/Apap 5/325 Tablet) 1 tab PO Q4HR PRN PRN Reason: PAIN SCALE 4-10(Mod-Sev Stop: 09/09/24 14:20 Magnesium Sulfate (Magnesium Sulfate Ivpb) 2 gm in 50 mls @ 25 mls/hr IV X1 ONE Stop: 09/04/24 14:42 Ceftriaxone Sodium/Dextrose (Rocephin/D5w 1gm Iv Premix) 50 mls @ 100 mls/hr IV QDAY [facility] Stop: 09/11/24 14:34 Ondansetron HCl (Ondansetron Inj 2 Mg/Ml Inj 2 Ml) 4 mg IV Q6H PRN; Protocol PRN Reason: NAUSEA OR VOMITING Stop: 10/04/24 14:20 Oseltamivir Phosphate (Oseltamivir 6 Mg/Ml) 30 mg PO QDAY [facility] Stop: 09/09/24 08:59 Sennosides (Senna Tablet) 1 tab PO QDAY PRN; Protocol PRN Reason: constipation Stop: 10/04/24 14:20 Discontinued Medications Furosemide (Furosemide Inj 10 Mg/Ml 4ml Vial) 20 mg IVP X1 ONE Stop: 09/04/24 10:51 Last Admin: 09/04/24 11:26 Dose: 20 mg Ceftriaxone Sodium 1,000 mg/ (Sodium Chloride) 50 mls @ 100 mls/hr IV X1 ONE Stop: 09/04/24 12:39 Last Infusion: 09/04/24 13:50 Dose: Infused Azithromycin 500 mg/ Sodium (Chloride) 250 mls @ 250 mls/hr IV X1 ONE Stop: 09/04/24 13:42 Last Admin: 09/04/24 14:32 Dose: 250 mls/hr Ceftriaxone Sodium 1,000 mg/ (Sodium Chloride) 50 mls @ 100 mls/hr IV X1 ONE Stop: 09/04/24 13:12 Last Admin: 09/04/24 13:09 Dose: Not Given Morphine Sulfate (Morphine Sulf Inj 10 Mg/Ml Vial) 1 mg IVP X1 ONE Stop: 09/04/24 10:51 Last Admin: 09/04/24 11:32 Dose: Not Given Nitroglycerin (Nitroglycerin Oint 2% 1 Inch Packet) 0.5 inch TOP X1 ONE Stop: 09/04/24 10:51 Last Admin: 09/04/24 11:27 Dose: 0.5 inch Oseltamivir Phosphate (Oseltamivir 75 Mg Capsule) 75 mg PO X1 ONE Stop: 09/04/24 12:37 Last Admin: 09/04/24 12:44 Dose: 75 mg Assessment & Plan Plan 89-year-old male with extensive past medical history of HFrEF (20 to 25% EF 2022), ischemic cardiomyopathy, CAD s/p CABG, MRSA bacteremia, MRSA bacteremia, defibrillator, hypertension, GERD, BPH, CKD stage IV, hypothyroidism, chronic anemia requiring multiple blood transfusion, and potential myelodysplastic syndrome was admitted to the hospital on 09/04/2024 due to acute symptomatic anemia and concerns for sepsis likely secondary to influenza pneumonia versus UTI. #Symptomatic anemia #Acute on chronic anemia #Potential myelodysplastic syndrome ?Patient states that he does feel weak and has been unable to walk in the past few days due to weakness. ?Patient states that he has required multiple multiple blood transfusions due to his chronic anemia. ? Pathology report from 2023 that showed potential myelodysplastic syndrome ? Patient does follow-up with hematology as an oncologist outpatient. ?Patient initial hemoglobin was 6.4. ? Patient was being transfused 1 PRBC. Plan: ? 2 PRBC total ordered ? Post H&H ?Folate and B12 ordered ? FOBT ordered ?Bleeding precautions ? Will continue to monitor #Acute hypoxic respiratory failure likely secondary to #Concern for sepsis likely secondary to #Influenza pneumonia #Complicated UTI #Lactic acidosis #NAGMA ?Patient stated that he started having productive cough around 2 days ago as well as shortness of breath today. ?At this time patient's blood pressure has been on the lower end with a MAP around 60-70, but this may be due to acute anemia requiring blood transfusion. ? Patient was positive for influenza A ?Chest x-ray that showed bilateral pneumonia ? UA was positive for bacteria ? Lactic acid 4.1 on admission and repeat 3.1 ? Procalcitonin 12.69 on admission ? CRP 27.5 on admission ?Bicarb 15.6 Plan: ?Start patient on oseltamavir 30 mg daily, renally dosed given patient has CKD stage IV [09/04/2024?] ? Started Rocephin 1 g daily and azithromycin 500 daily [09/04/2024?] ?Only giving 250 ml bolus as patient is getting 2 PRBC and has hx of HFrEF (EF 20 to 25%) ? Will continue to monitor patient's blood pressure given that blood pressure has been low therefore will monitor for developing shock ?Will consider starting midodrine if patient's blood pressure continues to be soft ? Blood cultures, urine, and sputum cultures ordered ?Lactic acid ordered ? Will continue to monitor #HFrEF (20 to 25% EF 2022) #CAD s/p CABG #Hx of ischemic cardiomyopathy ? Patient does have some history of HFrEF with an ejection fraction of 20 to 25% on 2022 as well as having some bilateral lower extremity edema at this time. ? BNP initially was 3163 ?Patient was given 1 dose of Lasix in the ED Plan: ? Will hold off on diuresis for now given the setting of sepsis ?Start patient's carvedilol 3.25 twice daily, tomorrow. ? Echo ordered ? Daily weights ? Will continue to monitor #Congestive hepatopathy ?Patient's AST 138 and ALT 134 ? Likely secondary to heart failure Plan: ? Hepatitis panel ordered ? Will continue to monitor #ESTELLA on CKD stage IV ?Patient's creatinine clearance is 21.9 and Cr 2.3 -Base line Cr around 2 ? Patient follows up outpatient with didactic instructor Plan: ? Avoid nephrotoxic agents ? Renally dose medications ? Will continue to monitor #Hx of hypothyroidism ?Patient's TSH was 5.9 ? Patient has a history of hypothyroidism Plan: ? Free T4 for a.m. draw ? Will continue patient's levothyroxine 25 mcg p.o. #Hx of hypertension ?Patient's blood pressure has been soft therefore will hold off on any antihypertensive medication for now. #Hx of BPH ?Will restart finasteride 5 mg daily #Hx of GERD ?Start pantoprazole Disposition: Patient admitted to telemetry for Symptomatic anemia and Sepsis 2/2 Influenza PNA and UTI. . Diet: Cardiac, renal GI prophylaxis: protonix DVT prophylaxis: SCDS in the setting of anemia Code: Full Case disclosed with Attending Dr. Bautista and My senior Dr. Williamson PGY2. Kevin Hodge PGY1 Senior Resident Attestation: The patients Hb was 6.4 and was given 2 unit PRBC and goal Hb is >8 as pt has significant CAD. Started on ceftriaxone, azithromycin and tamiflu for AHRF 2/2 sepsis 2/2 influenza pneumonia. We will also workup for anemia. His Lactic acid resolved after blood transfusion and 250cc bolus of NS. Received 4g of MGSO4. BNP high in the setting of entresto use, will resume GDMT as tolerated. Follow up on cultures. I discussed with and supervised the financial intern physician involved in the care of this patient. I personally saw and examined the patient and discussed the assessment and plan with the entire medicine team, including my attending. I agree with the assessment and plan as documented above. Rusty Williamson MD PGY2 Internal Medicine Attending Provider Attestation/Addendum I have examined the patient, reviewed labs and imaging findings, discussed the case with the resident(s), and reviewed entered orders. 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 emergency department on 09/04/2024 with multiple chief complaints including productive cough and shortness of breath. In the emergency room patient was found to have sepsis and thus hospitalist team consulted for continuation of care. # Acute hypoxic respiratory failure: Likely multifactorial secondary to influenza pneumonitis and superimposed bacterial pneumonia. ABG reviewed. Continue supplemental oxygen and wean as tolerated. # Sepsis # Community-acquired pneumonia # Influenza pneumonia # Urinary tract infection SIRS: 2 out of 4 SIRS criteria met qSOFA: 2 points on admission indicating increased risk for in-hospital mortality Presented with cough, shortness of breath. Most likely sources include pulmonary and UTI CXR: Bilateral pneumonia and diffuse in left lung. Pro-Emiliano 12.69 and LA 4.1 workup: Daily CBC, blood cultures, urine culture, influenza B positive Plan: Start IV Rocephin and azithromycin. Patient did not receive fluids in the emergency department given CHF history although patient will receive 2 units PRBCs for volume resuscitation and we will continue to trend lactic acid. Continue Tamiflu. Follow-up culture results when available. # Symptomatic anemia Patient has history of frequent blood transfusions and concern for myelodysplastic syndrome Hemoglobin 6.4 on admission with MCV 102 Plan: Order FOBT, folate, vitamin B12. 2 units PRBCs ordered and follow-up posttransfusion H&H and repeat hematology panel in AM. # Lactic acidosis On admission lactic acid 4.1, most likely type A lactic acidosis secondary to sepsis Plan: Follow-up repeat lactic acid after blood transfusions. If still elevated we will consider giving small 250 cc fluid bolus. # ESTELLA on CKD Baseline creatinine appears to be around 1.8. On admission creatinine 2.3 and BUN 76. ESTELLA likely secondary to prerenal azotemia in the setting of sepsis and symptomatic anemia Plan: Follow-up repeat renal panel in a.m. and avoid nephrotoxic agents plus renally dose medications. If renal function worsens we will consider nephrology consultation. # Chronic systolic heart failure Previous echo showed ejection fraction of 30% and does not appear to be in acute exacerbation at this time Plan: Monitor volume status closely and we will hold goal-directed medical therapy for soft blood pressure # Hypothyroidism Order free T4 and TSH Plan: Resume home levothyroxine Dr. Bautista
--- NOTE | 2024-09-04 15:30 | ECHO_ITS ---
Transthoracic Echo Report Ht (in): 68 Wt (lb): 159 Exam Location: Portable Status: Inpatient Facilities Maintenance Assistant: Josie Olguin Indications: Procedure Performed: BP: 100 / 62 HR: 92 Technical Quality: Fair MEASUREMENTS (Male / Female) Normal Values 2D ECHO LV Diastolic Diameter PLAX 6.9 cm 4.2 - 5.9 / 3.9 - 5.3 cm LV Systolic Diameter PLAX 6.3 cm IVS Diastolic Thickness 0.8 cm 0.6 - 1.0 / 0.6 - 0.9 cm LVPW Diastolic Thickness 0.8 cm 0.6 - 1.0 / 0.6 - 0.9 cm LV Relative Wall Thickness 0.2 LVOT Diameter 2.0 cm LA Volume Index 55.2 cm?/m? 16 - 28 cm?/m? Ascending Aorta Diameter 3.4 cm M-MODE Aortic Root Diameter MM 2.3 cm LA Systolic Diameter MM 4.8 cm LA Ao Ratio MM 2.1 MV E Point Septal Separation 2.2 cm AV Cusp Separation MM 1.7 cm DOPPLER AV Peak Velocity 209.3 cm/s AV Peak Gradient 17.5 mmHg AV Mean Gradient 8.7 mmHg AV Velocity Time Integral 33.3 cm AI Peak Velocity 296.0 cm/s AI Peak Gradient 35.0 mmHg AI Pressure Half Time 432.0 ms LVOT Peak Velocity 109.0 cm/s LVOT Peak Gradient 4.8 mmHg LVOT Velocity Time Integral 15.6 cm LVOT Cardiac Index 2415.1 cm?/min?m? AV Area Cont Eq vti 1.5 cm? AV Area Cont Eq pk 1.6 cm? MV Peak Velocity 141.0 cm/s MV Peak Gradient 8.0 mmHg MV Mean Velocity 74.0 cm/s MV Mean Gradient 3.0 mmHg MV Area PHT 3.8 cm? MR Peak Velocity 401.5 cm/s MR Peak Gradient 64.5 mmHg Mitral E Point Velocity 105.0 cm/s Mitral A Point Velocity 71.6 cm/s Mitral E to A Ratio 1.5 LV E' Lateral Velocity 5.9 cm/s Mitral E to LV E' Lateral Ratio 17.9 LV E' Septal Velocity 4.8 cm/s Mitral E to LV E' Septal Ratio 21.9 TR Peak Velocity 277.7 cm/s TR Peak Gradient 30.8 mmHg FINDINGS Left Ventricle Dilated Left ventricle. Severe systolic dysfunction. Akinesis apex, apical lateral. Hypokinesis sept al and posterior wall. The ejection fraction is visually estimated at 15-20%. Right Ventricle The right ventricle is mildly dilated. Severe systolic dysfunction. The estimated right ventricular systolic pressure, 51mmHg. RAP 15. Pacing wire present. Left Atrium The left atrium is severely dilated. Right Atrium The right atrium is mildly dilated. Atrial Septum The interatrial septum appears normal with no evidence of a shunt. Aorta The aorta is normal by two-dimensional, color flow and Doppler interrogation. Mitral Valve The mitral valve is mildly MAC. There is moderate mitral valve regurgitation. Aortic Valve The aortic valve is trileaflet. Mild sclerosis without stenosis. There is mild aortic valve regurgi tation. Tricuspid Valve The tricuspid valve is normal by two-dimensional, color flow and Doppler interrogation. There is mod eraet tricuspid valve regurgitation. Pulmonic Valve There is moderate pulmonic valve regurgitation. Vessels The pulmonary artery appears normal. The inferior vena cava pulmonary and hepatic veins appear dilat ed. Pericardium The pericardium is normal by two-dimensional imaging. There is no significant pericardial effusion. Other Findings Pleural effusion present. CONCLUSIONS Dilated ischemic cardiomyopathy with Severe systolic dysfunction. Akinesis apex, apical lateral. Hypokinesis septal and posterior wall. LV EF 15-20% Mild RV dilatation. Severe RV dysfunction. Estimated RVSP 51mmHg. RAP 15. Pacing wire present Dilated left atrium Mild MAC with Moderate mitral regurgitation Moderate TR, Mild plmonic and aortic regurgitation Aortic valve sclerosis without stenosis. IVC dilated. Pleural effusion present. Bijal Hurtado (Electronically Signed) Final Date: 06 September 2024 09:21
[2024-09-04 15:53] LABS: Lactic Acid, 3 HR 3.1 mMol/L (0.4-2.0)
[2024-09-04] MEDS: Magnesium Sulfate 2 GM Ivpb 2 GM/50 ML BAG IV ×2 (16:21→18:30)
[2024-09-04 16:22] LABS: Troponin I 0.039 ng/mL (0.0-0.045)
[2024-09-04] MEDS: SODIUM CHLORIDE RT 10% 15 ML NEBU 5 ML INH (16:32)
--- NOTE | 2024-09-04 16:38 | PC.RT ---
sputum sent to lab
--- NOTE | 2024-09-04 17:02 | PC.NURSE ---
SPOKE WITH DR SANDERS TO CLARIFY ORDERS. PER DR SANDERS GIVE PT TOTAL OF 4GMS MAGNESIUM AND ALSO GIVE HIM 250ML BOLUS. INFORMED HIM THAT PT'S HAS HAD LITTLE URINARY OUTPUT IN [place] AND HIS BMP IS HIGH. ASKED IF PT IS GOING TO BE RECEIVING ADDITIONAL LASIX, PER DR SANDERS NO LASIX AT THIS TIME DUE TO PT'S SOFT BP.
[2024-09-04] MEDS: SODIUM CHLORIDE 0.9% 250 ML 250 ML 999 ML IV (17:30)
[2024-09-04 20:00] LABS: Lactate (Lactic Acid) 1.4 mMol/L (0.4-2.0)
[2024-09-05] VITALS (21 sets, daily range): BP systolic 91–113; BP diastolic 54–75; PULSE 81–98; RESP 18–45; TEMP 36.1–37.1; O2SAT 88–99
[2024-09-05 02:41] LABS: Basophils % (Auto) 1 % (0-2.5); Eosinophils % (Auto) 0 % (0-10); Hematocrit 23.2 % (41.0-53.0); Immature Granulocytes % (Auto) 2 % (0-0); Immature Granulocytes Auto 0.06 Thou/mm3 (0.00-0.00); Lymphocytes # (Auto) 0.7 Thou/mm3 (1.0-4.8); Lymphocytes % (Auto) 18 % (10-50); Mean Corpuscular HGB Conc 34.5 g/dl (31.0-37.0); Mean Corpuscular Volume 93 fL (80-100); Monocytes # (Auto) 0.2 Thou/mm3 (0.0-0.8); Monocytes % (Auto) 6 % (0-12); Neutrophils # (Auto) 2.6 Thou/mm3 (1.8-7.7); Neutrophils % (Auto) 73 % (37-80); Nucleated Red Blood Cell % 0 /100 WBC (0); Platelet Count 84 Thou/mm3 (140-440); White Blood Count 3.6 Thou/mm3 (3.8-10.6)
[2024-09-05 03:07] LABS: Alanine Aminotransferase 1038 U/L (10-49); Albumin, Serum 3.4 gm/dL (3.4-4.8); Albumin/Globulin Ratio 0.9 (1.2-2.2); Alkaline Phosphatase 89 U/L (46-116); Anion Gap 10 (7-16); Aspartate Amino Transferase 967 U/L (0-34); BUN/Creatinine Ratio 33 Ratio (12-20); Bilirubin,Total 1.6 mg/dL (0.3-1.2); Blood Urea Nitrogen 89 mg/dL (9-23); Calcium (Corrected) 9.5 mg/dL (8.5-10.1); Carbon Dioxide 20.1 mMol/L (20.0-31.0); Cardiac Risk Estimate 3.3 RATIO (4.0-6.7); Chloride 104 mMol/L (98-107); Cholesterol 79 mg/dL (132-200); Creatinine (Component) 2.7 mg/dL (0.6-1.3); Estimated Creatinine Clearance 18.6 mL/min (>60); Free T4 (Free Thyroxine) 1.15 ng/dL (0.89-1.76); Globulin 3.7 gm/dL (2.3-3.5); Glucose 121 mg/dL (74-106); HDL Cholesterol 24 mg/dL (40-60); LDL Cholesterol,Calculated 43 mg/dL (0-130); Magnesium 2.5 mg/dL (1.6-2.6); Osmolality,Calculated 296 (275-295); Sodium 134 mMol/L (136-145); Total Protein 7.1 gm/dL (5.7-8.2); Triglycerides 62 mg/dL (30-150); eGFR 22 See Note
--- NOTE | 2024-09-05 04:15 | PC.NURSE ---
assume care at this time.
--- NOTE | 2024-09-05 04:39 | PC.NURSE ---
Spoke to Dr. Guzman resident, informed her of liver enzyme increase from previous blood draw. no new orders provided at this time.
[2024-09-05 05:03] LABS: Folate 11.16 ng/mL (>5.38); Hepatitis A Antibody IgM Non Reactive (Non React); Hepatitis B Core Antibody IgM Non Reactive (Non React); Hepatitis B Surface Antigen Non Reactive (Non React); Hepatitis C Antibody Non Reactive (Non React); Vitamin B12 1907 pg/mL (211-911)
--- NOTE | 2024-09-05 05:16 | XR_ITS ---
Examination: Abdomen sonogram, Limited Date and time of exam: September 05, 2024 0640 hrs. Indications: Abnormal liver function tests on laboratory examination performed today Technique: Real-time amador scale transabdominal sonographic images of the upper abdomen obtained. Findings: Absent gallbladder Common bile duct 10 mm Pancreatic head 2.6 cm Liver 15.5 cm mildly fatty infiltrated no focal liver lesions Normal hepatopedal portal venous flow Patent IVC Impression: Absent gallbladder Common bile duct 10 mm, no common bile duct stones noted If biliary colic is a clinical consideration, consider MRCP follow-up if the patient's cardiac leads are MRI compatible Fatty liver
[2024-09-05] MEDS: LEVOTHYROXINE SODIUM 25 MCG TABLET PO (06:06)
[2024-09-05] MEDS: AZITHROMYCIN 250 MG TABLET 500 MG PO (08:59)
[2024-09-05] MEDS: PANTOPRAZOLE 40 MG TABLET PO (08:59)
[2024-09-05] MEDS: OSELTAMIVIR 30 MG CAPSULE PO (09:00)
[2024-09-05] MEDS: cefTRIAXone/D5w 1gm IV premix 50 ML IV (09:01)
[2024-09-05 10:37] LABS: Alanine Aminotransferase 873 U/L (10-49); Albumin, Serum 3.5 gm/dL (3.4-4.8); Alkaline Phosphatase 92 U/L (46-116); Aspartate Amino Transferase 662 U/L (0-34); Bilirubin,Direct 0.8 mg/dL (0.0-0.3); Bilirubin,Total 1.3 mg/dL (0.3-1.2); Total Protein 7.4 gm/dL (5.7-8.2)
[2024-09-05] MEDS: FINASTERIDE 5 MG TABLET PO (12:29)
[2024-09-05] MEDS: SODIUM CHLORIDE 0.9% 250 ML 250 ML 999 ML IV (12:29)
[2024-09-05] MEDS: VANCOMYCIN/NS 1 GM IVPB 200 ML IV (12:41)
--- NOTE | 2024-09-05 13:53 | ESPR_ITS ---
<Statement entered by Kellen Barraza MD - 09/05/24 18:28> I discussed with and supervised my co-resident involved in the care of this patient. I agree with the assessment and plan as documented above. Kellen Barraza,PGY-3 Disclaimer: Despite multiple revisions, due to the dictation software being used, the document below may not be free of grammatical errors including phonetic/typographic errors. However, this does not deter from our commitment to providing health care in the patient's best interest in mind. Documentation for date of: 09/05/24 Subjective Subjective Interval history: Patient seen at bedside this morning. No overnight events. On labs today patient's hemoglobin stable at 8, kidney function slightly worsened with creatinine of 2.7, and liver enzymes significantly increased with AST 967 from 138 and ALT 1038 from 134. Hepatitis panel was negative and liver ultrasound showed fatty liver. Patient's blood cultures did grow GPC's in both bottles therefore we have added vancomycin for additional MRSA coverage. Patient most likely developed transaminitis secondary to hypotension versus shock. No other complaints at this time. Exam Vital Signs Temp Pulse Resp BP Pulse Ox O2 Del Method O2 Flow Rate 98.0 F 92 20 100/62 97 Nasal Cannula 4 09/05/24 10:29 09/05/24 10:29 09/05/24 10:29 09/05/24 10:29 09/05/24 10:29 09/05/24 10:29 09/05/24 10:29 Narrative Exam General: A/O x3, ill appearing elderly male Eyes: PERRL, EOMI. anicteric, vision grossly intact. Ears: No ear pain, no ear discharge, Hearing grossly intact. Nose: No nasal discharge. Mouth/Throat: Dry mucous membranes, no redness, no lesions. Neck: Neck supple, non-tender, no cervical lymphadenopathy. Lungs: Clear SHAHEEN to auscultation and percussion, No accessory muscle use. Cardio: Normal S1/S2, regular rhythm, no murmurs, no JVD Abdomen: Soft, non-tender, no palpable masses, peristalsis present, no guarding or rebound. Extremities: Symmetrical, no significant deformities, 1+ peripheral edema only in SHAHEEN feet and ankle, non-tender, peripheral pulses presents. Skin: No rashes, no lesions, warm to touch. Neuro: No focal neurological deficits. motor and sensory intact, SHAHEEN LE strength 4/5 and UE 5/5 Psych: Cooperative, appropriate mood and effect. Objective Labs 09/05/24 02:30 09/05/24 02:30 Labs: Laboratory Results - last 24 hr 09/04/24 09/04/24 09/04/24 11:14 13:00 15:44 WBC RBC Hgb Hct MCV MCH MCHC RDW Std Deviation Plt Count Neut % (Auto) Lymph % (Auto) Crisp % (Auto) Eos % (Auto) Baso % (Auto) Neut # (Auto) Lymph # (Auto) Crisp # (Auto) Eos # (Auto) Baso # (Auto) Immature Gran # (Auto) Absolute Nucleated RBC Immature Gran % Nucleated RBC % Sodium Potassium Chloride Carbon Dioxide Anion Gap BUN Creatinine Estim Creat Clear Calc eGFR BUN/Creatinine Ratio Glucose Calculated Osmolality Lactic Acid 3.1 H Calcium Corrected Calcium Magnesium Total Bilirubin Direct Bilirubin AST ALT Alkaline Phosphatase Troponin I 0.039 Total Protein Albumin Globulin Albumin/Globulin Ratio Triglycerides Cholesterol LDL Cholesterol, Calc HDL Cholesterol Cholesterol/HDL Ratio Vitamin B12 Folate Free T4 Ur Collection Type Clean Catch Urine Color Lt-Yellow Urine Clarity Cloudy A Urine pH 6.0 Ur Specific [place] 1.012 Urine Protein 1+ A Urine Glucose (UA) Negative Urine Ketones Negative Urine Blood 2+ A Urine Nitrite Negative Urine Bilirubin Negative Urine Urobilinogen (Auto) Negative Ur Leukocyte Esterase Positive Urine RBC 35 H Urine WBC 3379 H Ur Squamous Epith Cells 5 Urine Bacteria 3+ A Hepatitis A IgM Ab Hep Bs Antigen Hep B Core IgM Ab Hepatitis C Antibody Blood Type O Positive Antibody Screen NEGATIVE Crossmatch See Detail Blood Bank Wristband ID Yes 09/04/24 09/05/24 09/05/24 19:35 02:30 09:52 WBC 3.6 L RBC 2.50 L Hgb 8.0 L D Hct 23.2 L MCV 93 MCH 32.0 MCHC 34.5 RDW Std Deviation 62.0 H Plt Count 84 L D Neut % (Auto) 73 Lymph % (Auto) 18 Crisp % (Auto) 6 Eos % (Auto) 0 Baso % (Auto) 1 Neut # (Auto) 2.6 Lymph # (Auto) 0.7 L Crisp # (Auto) 0.2 Eos # (Auto) 0.0 Baso # (Auto) 0.0 Immature Gran # (Auto) 0.06 H Absolute Nucleated RBC 0.00 Immature Gran % 2 H Nucleated RBC % 0 Sodium 134 L Potassium 5.0 D Chloride 104 Carbon Dioxide 20.1 Anion Gap 10 BUN 89 H Creatinine 2.7 H Estim Creat Clear Calc 18.6 L eGFR 22 L BUN/Creatinine Ratio 33 H Glucose 121 H Calculated Osmolality 296 H Lactic Acid 1.4 Calcium 9.0 Corrected Calcium 9.5 Magnesium 2.5 Total Bilirubin 1.6 H 1.3 H Direct Bilirubin 0.8 H AST 967 H* 662 H* ALT 1038 H* 873 H* Alkaline Phosphatase 89 92 Troponin I Total Protein 7.1 7.4 Albumin 3.4 D 3.5 Globulin 3.7 H Albumin/Globulin Ratio 0.9 L Triglycerides 62 Cholesterol 79 L LDL Cholesterol, Calc 43 HDL Cholesterol 24 L Cholesterol/HDL Ratio 3.3 L Vitamin B12 1907 H Folate 11.16 Free T4 1.15 Ur Collection Type Urine Color Urine Clarity Urine pH Ur Specific [place] Urine Protein Urine Glucose (UA) Urine Ketones Urine Blood Urine Nitrite Urine Bilirubin Urine Urobilinogen (Auto) Ur Leukocyte Esterase Urine RBC Urine WBC Ur Squamous Epith Cells Urine Bacteria Hepatitis A IgM Ab Non Reactive Hep Bs Antigen Non Reactive Hep B Core IgM Ab Non Reactive Hepatitis C Antibody Non Reactive Blood Type Antibody Screen Crossmatch Blood Bank Wristband ID ABG Interpretation ABG results: 09/04/24 11:10 ABG pH 7.43 ABG pCO2 27 L ABG pO2 28 L* ABG HCO3 18 L ABG O2 Saturation 48 L ABG Base Excess -6 L Quality Measures Quality Measures none Advance care planning discussed with:: patient Assessment & Plan Assessment Current Active Medications: Generic Name Dose Route Start Last Admin Trade Name Michelle PRN Reason Stop Dose Admin Acetaminophen 650 mg 09/04/24 14:21 Acetaminophen 325 Mg Tablet PO 10/04/24 14:20 Q6H PRN pain and Fever >100.4 Hydrocodone Bitart/Acetaminophen 1 tab 09/04/24 14:21 Hydrocodone/Apap 5/325 Tablet PO 09/09/24 14:20 Q4HR PRN PAIN SCALE 4-10(Mod-Sev Azithromycin 500 mg 09/05/24 09:00 09/05/24 08:59 Azithromycin 250 Mg Tablet PO 09/12/24 08:59 500 mg QDAY PRASANTH Administration Carvedilol 3.125 mg 09/05/24 09:00 Carvedilol 3.125 Mg Tablet PO 10/05/24 08:59 BID PRASANTH Finasteride 5 mg 09/05/24 09:00 09/05/24 12:29 Finasteride 5 Mg Tablet PO 10/05/24 08:59 5 mg QDAY PRASANTH Administration Ceftriaxone Sodium/Dextrose 50 mls @ 100 mls/hr 09/05/24 09:00 09/05/24 10:00 Rocephin/D5w 1gm Iv Premix IV 09/11/24 08:59 Infused QDAY PRASANTH Infusion Levothyroxine Sodium 25 mcg 09/05/24 06:00 09/05/24 06:06 Levothyroxine Sodium 25 Mcg Tablet PO 10/05/24 05:59 25 mcg ACBR PRASANTH Administration Ondansetron HCl 4 mg 09/04/24 14:21 Ondansetron Inj 2 Mg/Ml Inj 2 Ml IV 10/04/24 14:20 Q6H PRN NAUSEA OR VOMITING Protocol Oseltamivir Phosphate 30 mg 09/05/24 09:00 09/05/24 09:00 Oseltamivir 30 Mg Capsule PO 09/09/24 08:59 30 mg QDAY PRASANTH Administration Pantoprazole Sodium 40 mg 09/05/24 09:00 09/05/24 08:59 Pantoprazole 40 Mg Tablet PO 10/05/24 08:59 40 mg QDAY PRASANTH Administration Pharmacy Consult 1 each 09/05/24 11:45 Vancomycin Pharmacy To Dose 1 Each Each IV 10/05/24 11:44 QDAY PRN consult Sennosides 1 tab 09/04/24 14:21 Senna Tablet PO 10/04/24 14:20 QDAY PRN constipation Protocol Plan 89-year-old male with extensive past medical history of HFrEF (20 to 25% EF 2022), ischemic cardiomyopathy, CAD s/p CABG, MRSA bacteremia, MRSA bacteremia, defibrillator, hypertension, GERD, BPH, CKD stage IV, hypothyroidism, chronic anemia requiring multiple blood transfusion, and potential myelodysplastic syndrome was admitted to the hospital on 09/04/2024 due to acute symptomatic anemia and concerns for sepsis likely secondary to influenza pneumonia versus UTI. #Acute hypoxic respiratory failure likely secondary to #Concern for sepsis likely secondary to #Influenza pneumonia #GPC bacteremia #Complicated UTI #Lactic acidosis #NAGMA ?Patient stated that he started having productive cough around 2 days ago as well as shortness of breath today. ?At this time patient's blood pressure has been on the lower end with a MAP around 60-70, but this may be due to acute anemia requiring blood transfusion. ? Patient was positive for influenza A - Possible MRSA pneumonia given positive blood cx with GPCs and patient's at risk given present influenza pneumonia and advance age ?Chest x-ray that showed bilateral pneumonia ? UA was positive for bacteria ? Lactic acid 4.1 on admission and down trended to 1.4 ? Procalcitonin 12.69, CRP 27.5, Bicarb 15.6 on admissio ? Blood culture grew GPC in 2/2 bottles Plan: ?Continue patient on oseltamavir 30 mg daily, renally dosed given patient has CKD stage IV [09/04/2024?] ? Continue Rocephin 1 g daily and azithromycin 500 daily [09/04/2024?] - Started Vancomycin [09/05/2024-] ?250 ml bolus x1 again today ? Will continue to monitor patient's blood pressure given that blood pressure has been low therefore will monitor for developing shock ?Will consider starting midodrine if patient's blood pressure continues to be soft ? Blood cultures, urine, and sputum cultures pending ? Will continue to monitor #Symptomatic anemia #Acute on chronic anemia #Potential myelodysplastic syndrome ?Patient states that he does feel weak and has been unable to walk in the past few days due to weakness. ?Patient states that he has required multiple multiple blood transfusions due to his chronic anemia. ? Pathology report from 2023 that showed potential myelodysplastic syndrome ? Patient does follow-up with hematology as an oncologist outpatient. ?Patient initial hemoglobin was 6.4. ?2 PRBC total transfused -Hgb today 8 -Folate 11.16 and Vit B12 1907 Plan: ? FOBT pending ? Bleeding precautions ? Will continue to monitor #Transaminitis ?Patient's AST 138 and ALT 134 on admission ? DDx ischemic hepatitis in the setting of hypotension versus congestive hepatopathy ? Hepatitis panel negative - Liver US showed fatty liver -AST 967 and ALT 1038 today and repeat 662 and 873 respectively -No symptoms Plan: ? Will continue to monitor #HFrEF (20 to 25% EF 2022) #CAD s/p CABG #Hx of ischemic cardiomyopathy ? Patient does have some history of HFrEF with an ejection fraction of 20 to 25% on 2022 as well as having some bilateral lower extremity edema at this time. ? BNP initially was 3163 ?Patient was given 1 dose of Lasix in the ED Plan: ? Will hold off on diuresis for now given the setting of sepsis and worsening kidney function. ?Continue patient's carvedilol 3.25 twice daily ? Echo pending ? Daily weights ? Will continue to monitor #ESTELLA on CKD stage IV ?Patient's creatinine clearance is 21.9 and Cr 2.3 on admission -Base line Cr around 2 -Cr worsened to 2.7 today ? Patient follows up outpatient with second mate Plan: ? Avoid nephrotoxic agents ? Renally dose medications - Consult nephrology, appreciate recommendations ? Will continue to monitor #Hx of hypothyroidism ?Patient's TSH was 5.9 ? Free T4 1.15 ? Patient has a history of hypothyroidism Plan: ? Will continue patient's levothyroxine 25 mcg p.o. #Hx of hypertension ?Patient's blood pressure has been soft therefore will hold off on any antihypertensive medication for now. #Hx of BPH ?Will continue finasteride 5 mg daily #Hx of GERD ?Continue pantoprazole Disposition: Patient admitted to telemetry for Symptomatic anemia and Sepsis 2/2 Influenza PNA and UTI. . Diet: Cardiac, renal GI prophylaxis: protonix DVT prophylaxis: SCDS in the setting of anemia Code: Full Case disclosed with Attending Dr. Bautista and My senior Dr. Barraza PGY3. Kevin Hodge PGY1 Attending Provider Attestation/Addendum I have examined the patient, reviewed labs and imaging findings, discussed the case with the resident(s), and reviewed entered orders. 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 In the emergency room patient was found to have sepsis and thus hospitalist team consulted for continuation of care. # Acute hypoxic respiratory failure: multifactorial secondary to influenza pneumonitis and superimposed bacterial pneumonia. ABG reviewed. Continue supplemental oxygen and wean as tolerated. # Sepsis # Community-acquired pneumonia # Influenza pneumonia # Urinary tract infection # Bacteremia SIRS: 2 out of 4 SIRS criteria met qSOFA: 2 points on admission indicating increased risk for in-hospital mortality Presented with cough, shortness of breath. Most likely sources include pulmonary and UTI CXR: Bilateral pneumonia and diffuse in left lung. Pro-Emiliano 12.69 and LA 4.1 workup: Daily CBC, blood cultures, urine culture, influenza B positive Plan: Continue IV Rocephin and azithromycin. Continue Tamiflu. Blood cxs showing GPC in both bottles and IV vancomycin added. F/U urine and blood culture when available. We will repeat blood cultures tomorrow. # Symptomatic anemia # Thrombocytopenia Patient has history of frequent blood transfusions and concern for myelodysplastic syndrome Hemoglobin 6.4 on admission with MCV 102 Plan: FOBT pending, folate & vitamin B12 relatively normal. S/P 2 units PRBCs with improvement of hemoglobin to 8.0. Repeat hematology panel in am. Hold all chemical anticoagulation # Transaminitis Most likely secondary to ischemia in the setting of severe sepsis, anemia, and soft blood pressure Liver ultrasound showed absent gallbladder, 10 mm CBD with no stones and fatty liver Plan: Continue to avoid hypotension. Avoid hepatotoxic agents. Repeat LFTs in AM. # ESTELLA on CKD Baseline creatinine appears to be around 1.8. On admission creatinine 2.3 and BUN 76. ESTELLA likely secondary to prerenal azotemia in the setting of sepsis and symptomatic anemia Plan: Follow-up repeat renal panel in a.m. and avoid nephrotoxic agents plus renally dose medications. If renal function worsens we will consider nephrology consultation. Consult nephrology, recommendations appreciated. # Chronic systolic heart failure Previous echo showed ejection fraction of 30% and does not appear to be in acute exacerbation at this time. BNP 3163 in the setting of ESTELLA Plan: Monitor volume status closely and we will hold goal-directed medical therapy for soft blood pressure. Echocardiogram pending. If blood pressure drops then we will consider starting midodrine. # Lactic acidosis-Resolved On admission lactic acid 4.1, most likely type A lactic acidosis secondary to sepsis Plan: Resolved. No further workup needed at this time. # Hypothyroidism Plan: Resume home levothyroxine Dr. Bautista
[2024-09-06] VITALS (30 sets, daily range): BP systolic 69–127; BP diastolic 52–80; PULSE 80–111; RESP 21–38; TEMP 36.1–36.4; O2SAT 87–97; BMI 24.0
[2024-09-06 05:47] LABS: Basophils % (Auto) 1 % (0-2.5); Eosinophils # (Auto) 0.1 Thou/mm3 (0.0-0.5); Eosinophils % (Auto) 3 % (0-10); Hematocrit 24.1 % (41.0-53.0); Immature Granulocytes % (Auto) 1 % (0-0); Immature Granulocytes Auto 0.04 Thou/mm3 (0.00-0.00); Lymphocytes # (Auto) 0.7 Thou/mm3 (1.0-4.8); Lymphocytes % (Auto) 19 % (10-50); Mean Corpuscular HGB Conc 34.4 g/dl (31.0-37.0); Mean Corpuscular Hemoglobin 32.4 pg (25.0-35.0); Mean Corpuscular Volume 94 fL (80-100); Monocytes # (Auto) 0.2 Thou/mm3 (0.0-0.8); Monocytes % (Auto) 6 % (0-12); Neutrophils # (Auto) 2.6 Thou/mm3 (1.8-7.7); Neutrophils % (Auto) 71 % (37-80); Nucleated Red Blood Cell % 0 /100 WBC (0); Platelet Count 92 Thou/mm3 (140-440); RDW Standard Deviation 63.5 fL (35.1-43.9); Red Blood Count 2.56 Miln/mm3 (4.50-5.90); White Blood Count 3.6 Thou/mm3 (3.8-10.6)
[2024-09-06 05:48] LABS: Hemoglobin 8.3 g/dL (13.5-16.0)
[2024-09-06] MEDS: LEVOTHYROXINE SODIUM 25 MCG TABLET PO (05:54)
[2024-09-06 07:08] LABS: Alanine Aminotransferase 595 U/L (10-49); Albumin, Serum 3.1 gm/dL (3.4-4.8); Albumin/Globulin Ratio 0.8 (1.2-2.2); Alkaline Phosphatase 84 U/L (46-116); Anion Gap 10 (7-16); Aspartate Amino Transferase 228 U/L (0-34); BUN/Creatinine Ratio 41 Ratio (12-20); Bilirubin,Total 0.8 mg/dL (0.3-1.2); Calcium 8.6 mg/dL (8.3-10.6); Calcium (Corrected) 9.3 mg/dL (8.5-10.1); Carbon Dioxide 18.6 mMol/L (20.0-31.0); Chloride 105 mMol/L (98-107); Creatinine (Component) 2.5 mg/dL (0.6-1.3); Estimated Creatinine Clearance 20.1 mL/min (>60); Globulin 3.7 gm/dL (2.3-3.5); Glucose 101 mg/dL (74-106); Magnesium 2.3 mg/dL (1.6-2.6); Osmolality,Calculated 300 (275-295); Phosphorous 5.2 mg/dL (2.4-5.1); Potassium 4.4 mMol/L (3.4-5.1); Sodium 134 mMol/L (136-145); Total Protein 6.8 gm/dL (5.7-8.2); eGFR 24 See Note
[2024-09-06 07:09] LABS: Blood Urea Nitrogen 102 mg/dL (9-23)
[2024-09-06 07:20] LABS: Vancomycin,Random 10.8 mcg/mL
--- NOTE | 2024-09-06 08:10 | PD.NEPHCONS ---
History of Present Illness Data of Consult Consult date: 09/06/24 Requesting Physician: Samuel Bautista MD Primary Care Provider: Ray Gillette MD Consult Narrative Reason for consult: ARF History of present illness: Chart review done as patient seems to be a poor historian. Mr. Wyatt is a 89-year-old fragile gentleman with extensive past medical history of HFrEF (20 to 25% EF 2022), ischemic cardiomyopathy, CAD s/p CABG, MRSA bacteremia, defibrillator, hypertension, GERD, BPH, CKD stage IV(being followed by a straightening press operator helper-??? Not sure of the name), hypothyroidism, chronic anemia requiring multiple blood transfusion, and potential myelodysplastic syndrome was admitted to the hospital on 09/04/2024 after coming to the ED with cough, shortness of breath, and chest pain. Patient was accompanied by son at bedside, but were poor historians. During assessment patient stated that around 2 days ago he started developing a productive cough, and today he became short of breath. Patient lives at [facility]. Patient states that he has needed multiple blood transfusions in the past due to chronic anemia, but upon chart review patient does have bone marrow biopsy which came back with concerns for possible myelodysplastic syndrome. In the emergency department patient did receive 2 units of blood. Labs showed hemoglobin 6.4, platelets 121. Sodium 133, bicarbonate 15.6, BUN 76, creatinine 2.3, lactic acid 4.1, magnesium 1.5, AST 138, ALT 134, CRP 27.5, BNP 3163, Pro-Emiliano 12.6, TSH 5.9, urinalysis shows UTI. Patient positive for flu. EKG showed paced rhythm. Chest x-ray showed extensive bilateral pneumonia. Patient admitted to telemetry with a diagnosis of ESTELLA, pneumonia. Currently seen in respiratory isolation. Nephrology consultation requested in view of ESTELLA. cc:: cc: Samuel Bautista MD Review of Systems Review of Systems Narrative Review of Systems: Limited as patient seems to be slightly confused. Not quite sure who his doctors are. He recalls seeing the urologist. He did see a straightening press operator helper although not sure of the name. Past Medical History Past Medical History NEUROLOGIC: Positive Neurological Disorders; Negative Cerebrovascular Accident, Transient Ischemic Attacks (TIA), Dementia, Alzheimer's Disease, Parkinson's Disease, Brain Tumor, Meningitis, Seizures, Epilepsy, Multiple Sclerosis, Cerebral Palsy, Amyotrophic Lateral Sclerosis (ALS/Sharlene Gehrig's), Guillain-[place] Syndrome, Spina Bifida, Paralysis, Peripheral Neuropathy, Stewart's Palsy, Subdural Hematoma, Migraine, Head Trauma, Spinal Cord Injury or Traumatic Brain Injury CARDIAC: Positive Cardiac Disorders, Myocardial Infarction, Cardiac Arrhythmia, Coronary Artery Disease, Hypercholesterolemia, Congestive Heart Failure, Valvular Heart Disease and Hypertension; Negative Atrial Fibrillation, Angina, Heart Murmur, Atherosclerotic Heart Disease, Peripheral Vascular Disease, Aneurysm, Congenital Heart Disease, Rheumatic Fever, Cardiomyopathy, Edema, Pericarditis, Cellulitis, Deep Vein Thrombosis, Hypotension or Varicose Veins RESPIRATORY: Positive Pneumonia and Sleep Apnea; Negative Chronic Obstructive Pulmonary Disease (COPD), Asthma, Bronchitis, Emphysema, Pulmonary Fibrosis, Cystic Fibrosis, Tuberculosis, Pulmonary Embolism or Pulmonary Edema GASTROINTESTINAL: Positive Gastrointestinal Disorders, Gall Bladder Disease and Gastroesophageal Reflux Disease; Negative Hepatitis, Cirrhosis, Pancreatitis, Celiac Disease, Gastrointestinal Bleed, Esophageal Varices, Joe's Esophagus, Colitis, Ulcerative Colitis, Diverticulitis, Diverticulosis, Ulcer, Colorectal Cancer, Irritable Bowel, Crohn's Disease, Obstructive Bowel, Hiatal Hernia, Hemorrhoids or Obesity GENITOURINARY: Positive Genitourinary Disorders, Renal Disease and Benign Prostatic Hyperplasia; Negative Kidney Stones, Polycystic Kidney Disease, Neurogenic Bladder, Inguinal Hernia, Dialysis or Prostate Cancer REPRODUCTIVE: Negative Testicular Cancer MUSCULOSKELETAL: Positive Musculoskeletal Disorders and Arthritis; Negative Muscular Dystrophy, Myasthenia Gravis, Marfan's Syndrome, Bone Cancer, Rheumatoid Arthritis, Osteoporosis, Degenerative Disk Disease, Gout, Scoliosis, Carpal Tunnel Syndrome, Fibromyalgia, Fractures, Degenerative Joint Disease, Osteomyelitis or Poliovirus ENT: Positive Cataracts; Negative Glaucoma, Blind, Retinal Detachment, Macular Degeneration, Ear Infection, Deafness, Head Trauma or Eye Prosthesis ENDOCRINE: Positive Hypothyroidism; Negative Endocrine Disorders, Diabetes Mellitus Type 1, Diabetes Mellitus Type 2, Hypoglycemia, Viral's Syndrome, [place]'s Disease, Hyperthyroidism, Parathyroid Disease, Pituitary Disease, Systemic Lupus Erythematosus, Syndrome of Inappropriate Antidiuretic Hormone (SIADH), Adrenal Disease or Graves' Disease HEMATOLOGIC: Positive Blood Disorders and Anemia; Negative Leukemia, Hemophilia, Thalassemia, Sickle Cell Disease or Clotting Problems PSYCHO/SOCIAL: Positive Anxiety; Negative Psychiatric Problems, Schizophrenia, Recreational Drug Use, Bipolar Disorder, Depression, Behavior Problems, Self-Mutilation, Attention Deficit Disorder, Attention Deficit Hyperactivity Disorder, Post Traumatic Stress Disorder or Eating Disorder OTHER HISTORY: Positive Hospitalization, Falls, Blood Transfusions, Chicken Pox, Measles and Cancer; Negative Autoimmune Disease, Down Syndrome, Autism, Developmental Delay, Shingles, Blood Transfusion Reaction, Anesthesia Reactions, Organ Transplant, Chemotherapy, Radiation Therapy, Hyperbaric Therapy, MRSA, VRSA, Vancomycin-Resistant Enterococci, Human Immunodeficiency Virus (HIV), Mumps, Rubella ([place] Measles), Pertussis, Clostridium Difficile, Colorectal Cancer, Lung Cancer, Prostate Cancer or Testicular Cancer Family History FAMILY HISTORY: Positive Family Cancer and Family Surgery; Negative Family Psychiatric Problems, Family Respiratory Disorders, Family Cardiac Disorders, Family Gastrointestinal Problems or Family Anesthesia Reaction Surgical History SURGICAL: Positive Cardiac Surgery, Open Heart Surgery, Coronary Artery Bypass Graft, Coronary Stent, Cardiac Catheterization, Pacemaker, Angiogram, Auto Implanted Cardiovert Defib, Nose Surgery, Oral Surgery, Tonsillectomy, Abdominal Surgery and Vasectomy; Negative Valve Replacement, Vascular Surgery, Carotid Endarterectomy, Endocrine Surgery, Thyroidectomy, Ear Surgery, Tympanostomy Tube, Eye Surgery, Adenoidectomy, Cochlear Implant, Corneal Transplant, Throat Surgery, Tracheostomy, Gastric Bypass Surgery, Gastrostomy, Bowel Surgery, Nephrectomy, Transurethral Resection, Joint Replacement, Amputation, Open Reduction Internal Fixation, Arthroscopy, Neurologic Surgery, Brain Shunt or Organ Transplant Social History SMOKING STATUS: Never smoker SUBSTANCE USE: does not use Meds Home Medications and Allergies Home Medications ?Medication ?Instructions ?Recorded ?Confirmed ?Type aspirin 81 mg tablet 81 mg PO DAILY 08/16/23 07/31/24 History carvedilol 25 mg tablet 25 mg PO BID 08/16/23 07/31/24 History finasteride 5 mg tablet 5 mg PO DAILY 08/16/23 07/31/24 History fluticasone propionate 50 1 spray intranasal BID 08/16/23 07/31/24 History mcg/actuation nasal spray,suspension levothyroxine 25 mcg tablet 25 mcg PO DAILY 08/16/23 07/31/24 History pantoprazole 40 mg tablet,delayed 40 mg PO DAILY 08/16/23 07/31/24 History release sacubitril 49 mg-valsartan 51 mg 1 tab PO BID 08/16/23 07/31/24 History tablet (Entresto) tamsulosin 0.4 mg capsule 0.4 mg PO DAILY 08/16/23 07/31/24 History hydroxyzine HCl 50 mg tablet 50 mg PO QID PRN 07/31/24 07/31/24 History epoetin jackie-epbx 40,000 unit/mL 40,000 unit IV QWEEK 09/05/24 09/05/24 History injection solution (Retacrit) epoetin jackie-epbx 40,000 unit/mL unit 09/05/24 History injection solution (Retacrit) Allergies Allergy/AdvReac Type Severity Reaction Status Date / Time No Known Allergies Allergy Verified 09/04/24 10:08 Exam Vital Signs Temp Pulse Resp BP Pulse Ox O2 Del Method O2 Flow Rate 36.1 C 93 33 H 127/72 95 Nasal Cannula 1 09/05/24 16:00 09/06/24 06:00 09/06/24 06:00 09/06/24 06:00 09/06/24 06:00 09/05/24 16:00 09/05/24 18:31 Narrative Exam GENERAL APPEARANCE: Elderly gentleman currently seen in ICU (under telemetry status) NECK: Neck supple, no JVD or bruit CARDIOVASCULAR: Heart regular, no murmurs LUNGS/CHEST: Chest clear to auscultation. No rales, rhonchi, wheezing ABDOMEN: Soft, nontender, nondistended. No masses. Normal bowel sounds. EXTREMITIES: No edema, clubbing or cyanosis. SKIN: Skin exam normal without any rashes MUSCULOSKELETAL: in bed NEUROLOGICAL : No neurological deficits Results Labs 09/07/24 04:41 09/07/24 04:41 Labs: Short CBC 09/06/24 Range/Units 04:47 WBC 3.6 L (3.8-10.6) Thou/mm3 Hgb 8.3 L (13.5-16.0) g/dL Hct 24.1 L (41.0-53.0) % Plt Count 92 L (140-440) Thou/mm3 BMP 09/06/24 04:47 Sodium 134 L Potassium 4.4 D Chloride 105 Carbon Dioxide 18.6 L BUN 102 H* Creatinine 2.5 H Glucose 101 Calcium 8.6 Liver Function 09/05/24 09/06/24 Range/Units 09:52 04:47 Total Bilirubin 1.3 H 0.8 D (0.3-1.2) mg/dL Direct Bilirubin 0.8 H (0.0-0.3) mg/dL AST 662 H* 228 H (0-34) U/L ALT 873 H* 595 H* (10-49) U/L Alkaline Phosphatase 92 84 (46-116) U/L Albumin 3.5 3.1 L (3.4-4.8) gm/dL ABG Interpretation ABG results: 09/04/24 11:10 ABG pH 7.43 ABG pCO2 27 L ABG pO2 28 L* ABG HCO3 18 L ABG O2 Saturation 48 L ABG Base Excess -6 L Assessment & Plan Assessment and plan (1) Acute on chronic renal failure: Status: Acute Assessment and plan: Acute renal failure secondary to prerenal azotemia. BUN out of proportion to creatinine-consistent with possible GI bleed. GI was consulted. BUN significantly elevated. Will monitor him closely. Underlying sepsis/hypotension could be the cause for his prerenal azotemia. 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 (2) UTI (urinary tract infection): Status: Acute Assessment and plan: Broad-spectrum antibiotics. (3) Acute respiratory failure with hypoxia: Status: Acute Assessment and plan: Patient with pneumonia, flu. On antibiotics (4) Pneumonia: Status: Acute Assessment and plan: On antibiotics, Tamiflu (5) Severe anemia: Status: Acute Assessment and plan: Patient noted to have severe anemia. Although WBC is low. Suspect myelodysplastic syndrome. Needing blood transfusions. (6) Sepsis: Status: Acute Assessment and plan: Secondary to pneumonia/UTI. Patient also seems to have shock liver. Significant elevation in LFTs-improving Additional Assessment & Plan Additional Plan: Thank you Samuel for allowing me to participate in the care of Mr. Chan
--- NOTE | 2024-09-06 08:36 | PD.RESPRO ---
Documentation for date of: 09/06/24 Subjective Subjective Interval history: No acute overnight events. Still feels short of breath even though satting okay on 1 L NC. Tolerating oral intake without nausea or vomiting. Denies fever, chills, headaches, chest pain, sob, cough, GI or urinary symptoms. Exam Vital Signs Temp Pulse Resp BP Pulse Ox O2 Del Method O2 Flow Rate 97.0 F 93 33 H 127/72 95 Nasal Cannula 1 09/05/24 16:00 09/06/24 06:00 09/06/24 06:00 09/06/24 06:00 09/06/24 06:00 09/05/24 16:00 09/05/24 18:31 Narrative Exam General: A/O x3, ill appearing elderly male Eyes: PERRL, EOMI. anicteric, vision grossly intact. Ears: No ear pain, no ear discharge, Hearing grossly intact. Nose: No nasal discharge. Mouth/Throat: Dry mucous membranes, no redness, no lesions. Neck: Neck supple, non-tender, no cervical lymphadenopathy. Lungs: Clear SHAHEEN to auscultation and percussion, No accessory muscle use. Cardio: Normal S1/S2, regular rhythm, no murmurs, no JVD Abdomen: Soft, non-tender, no palpable masses, peristalsis present, no guarding or rebound. Extremities: Symmetrical, no significant deformities, 1+ peripheral edema only in SHAHEEN feet and ankle, non-tender, peripheral pulses presents. Skin: No rashes, no lesions, warm to touch. Neuro: No focal neurological deficits. motor and sensory intact, SHAHEEN LE strength 4/5 and UE 5/5 Psych: Cooperative, appropriate mood and effect. Objective Labs 09/07/24 04:41 09/07/24 04:41 Labs: Laboratory Results - last 24 hr 09/05/24 09/06/24 09:52 04:47 WBC 3.6 L RBC 2.56 L Hgb 8.3 L Hct 24.1 L MCV 94 MCH 32.4 MCHC 34.4 RDW Std Deviation 63.5 H Plt Count 92 L Neut % (Auto) 71 Lymph % (Auto) 19 [place] % (Auto) 6 Eos % (Auto) 3 Baso % (Auto) 1 Neut # (Auto) 2.6 Lymph # (Auto) 0.7 L [place] # (Auto) 0.2 Eos # (Auto) 0.1 Baso # (Auto) 0.0 Immature Gran # (Auto) 0.04 H Absolute Nucleated RBC 0.00 Immature Gran % 1 H Nucleated RBC % 0 Sodium 134 L Potassium 4.4 D Chloride 105 Carbon Dioxide 18.6 L Anion Gap 10 BUN 102 H* Creatinine 2.5 H Estim Creat Clear Calc 20.1 L eGFR 24 L BUN/Creatinine Ratio 41 H Glucose 101 Calculated Osmolality 300 H Calcium 8.6 Corrected Calcium 9.3 Phosphorus 5.2 H Magnesium 2.3 Total Bilirubin 1.3 H 0.8 D Direct Bilirubin 0.8 H AST 662 H* 228 H ALT 873 H* 595 H* Alkaline Phosphatase 92 84 Total Protein 7.4 6.8 Albumin 3.5 3.1 L Globulin 3.7 H Albumin/Globulin Ratio 0.8 L Random Vancomycin 10.8 ABG Interpretation ABG results: 09/04/24 11:10 ABG pH 7.43 ABG pCO2 27 L ABG pO2 28 L* ABG HCO3 18 L ABG O2 Saturation 48 L ABG Base Excess -6 L Quality Measures Quality Measures none Advance care planning discussed with:: patient Assessment & Plan Assessment Current Active Medications: Generic Name Dose Route Start Last Admin Trade Name Freq PRN Reason Stop Dose Admin Acetaminophen 650 mg 09/04/24 14:21 Acetaminophen 325 Mg Tablet PO 10/04/24 14:20 Q6H PRN pain and Fever >100.4 Protocol Hydrocodone Bitart/Acetaminophen 1 tab 09/04/24 14:21 Hydrocodone/Apap 5/325 Tablet PO 09/09/24 14:20 Q4HR PRN PAIN SCALE 4-10(Mod-Sev Azithromycin 500 mg 09/05/24 09:00 09/05/24 08:59 Azithromycin 250 Mg Tablet PO 09/12/24 08:59 500 mg QDAY PRASANTH Administration Carvedilol 3.125 mg 09/05/24 09:00 Carvedilol 3.125 Mg Tablet PO 10/05/24 08:59 BID PRASANTH Finasteride 5 mg 09/05/24 09:00 09/05/24 12:29 Finasteride 5 Mg Tablet PO 10/05/24 08:59 5 mg QDAY PRASANTH Administration Piperacillin/Tazobactam/Dextrose 100 mls @ 200 mls/hr 09/06/24 07:56 Zosyn IV 09/13/24 07:55 Q8HR PRASANTH Levothyroxine Sodium 25 mcg 09/05/24 06:00 09/06/24 05:54 Levothyroxine Sodium 25 Mcg Tablet PO 10/05/24 05:59 25 mcg ACBR PRASANTH Administration Ondansetron HCl 4 mg 09/04/24 14:21 Ondansetron Inj 2 Mg/Ml Inj 2 Ml IV 10/04/24 14:20 Q6H PRN NAUSEA OR VOMITING Protocol Oseltamivir Phosphate 30 mg 09/05/24 09:00 09/05/24 09:00 Oseltamivir 30 Mg Capsule PO 09/09/24 08:59 30 mg QDAY PRASANTH Administration Pantoprazole Sodium 40 mg 09/05/24 09:00 09/05/24 08:59 Pantoprazole 40 Mg Tablet PO 10/05/24 08:59 40 mg QDAY PRASANTH Administration Pharmacy Consult 1 each 09/05/24 11:45 Vancomycin Pharmacy To Dose 1 Each Each IV 10/05/24 11:44 QDAY PRN consult Sennosides 1 tab 09/04/24 14:21 Senna Tablet PO 10/04/24 14:20 QDAY PRN constipation Protocol Plan In summary: 89-year-old male with extensive past medical history of HFrEF (20 to 25% EF 2022), ischemic cardiomyopathy, CAD s/p CABG, MRSA bacteremia, MRSA bacteremia, defibrillator, hypertension, GERD, BPH, CKD stage IV, hypothyroidism, chronic anemia requiring multiple blood transfusion, and potential myelodysplastic syndrome was admitted to the hospital on 09/04/2024 due to acute symptomatic anemia and concerns for sepsis likely secondary to influenza pneumonia versus UTI. On 1 L NC, satting okay, RR 30s, afebrile, BP good, HR 90s DC 3.6, Hgb 8.3 stable, PLT 92, improving BUN 102 up, CR 2.7 > 2.5, phosphorus 5.2, AST improving to 28, ALT improving 595 Urine grew Klebsiella sensitive to CEFTRIAXONE, CIPRO, LEVOFLOXACIN, ZOSYN Appreciate recommendation from cardiology and nephrology. Sepsis Community-acquired pneumonia Influenza pneumonia Klebsiella UTI GPC Bacteremia Presenting with cough, shortness of breath. Septic on admission with 2/4 SIRS positive and source being pulmonary versus UTI. CXR showed pneumonia, worse in left lung. Admission Pro-Calc 12.6, lactic acid 4.1. Tested positive for influenza B. Previously on CEFTRIAXONE and AZITHROMYCIN. Continued on TAMIFLU. Prelim blood culture grew GPC, on VANCOMYCIN. Urine culture grew Klebsiella sensitive to ZOSYN. Tachycardic, WBC 3.6, afebrile. ? Continue TAMIFLU 30 mg daily (09/05 to [present]) ? Continue LEVAQUIN 750 mg daily (09/06 to [present]) ? Continue VANCOMYCIN (09/05 to [present]) ? Physical therapy ? Pending final blood culture Acute Symptomatic anemia Thrombocytopenia Possible myelodysplastic syndrome given history of recurrent blood transfusions. Admission Hgb 6.4, MCV 102. Hgb 8.3 stable after 1 unit RBCs. ? Continue weekly PROCRIT 40,000 units (given every Sunday) ? Transfuse if Hgb less than 8 ? Daily CBC ? Pending FOBT Transaminitis (improving) Most likely secondary to ischemia in the setting of severe sepsis, anemia, and soft blood pressure. Liver ultrasound showed absent gallbladder, 10 mm CBD with no stones and fatty liver ? Avoid hypotension ? Avoid hepatotoxic agents ? Daily LFTs Pre-renal ESTELLA (improving) CKD stage IIIb Baseline creatinine appears to be around 1.8. CR 2.3 > 2.7 > 2.5. ESTELLA likely secondary to prerenal azotemia in the setting of sepsis and symptomatic anemia. Baseline GFR 30?40. ? Renally dose meds, avoid overdiuresis and NEPHROTOXINS ? Pending nephrology recommendations Chronic systolic heart failure, EF 15-20% Previous echo showed ejection fraction of 30%, repeat echo this admission showed EF 50-20%. Admission BNP 3163, likely in settings of ESTELLA. No signs of acute CHF exacerbation at this time. ? Continue BUMEX 2 mg daily ? Continue CARVEDILOL 3.125 mg BID BPH No signs of urinary retention this time. ? Continue home FINASTERIDE 5 mg daily Hypothyroidism TSH 5.90, free T4 normal. ? Continue LEVOTHYROXINE 25 mcg AC BR GERD ? Continue PROTONIX daily Lactic acidosis (resolved) On admission lactic acid 4.1, most likely type A lactic acidosis secondary to sepsis Plan: Resolved. No further workup needed at this time. Health maintenance Diet: Cardiac GI prophylaxis: PROTONIX DVT prophylaxis: SCDs Antibiotics: TAMIFLU, VANCOMYCIN, LEVAQUIN CODE STATUS: Full code Disposition: Pending symptom improvement. Patient case was discussed with attending, Samuel Bautista MD and senior resident Dr. Williamson. Kaylan Newby DO PGYI Attending Provider Attestation/Addendum I have examined the patient, reviewed labs and imaging findings, discussed the case with the resident(s), and reviewed entered orders. 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 In the emergency room patient was found to have sepsis and thus hospitalist team consulted for continuation of care. # Acute hypoxic respiratory failure: multifactorial secondary to influenza pneumonitis and superimposed bacterial pneumonia. ABG reviewed. Continue supplemental oxygen and wean as tolerated. # Sepsis # Community-acquired pneumonia # Influenza pneumonia # Urinary tract infection # Bacteremia SIRS: 2 out of 4 SIRS criteria met qSOFA: 2 points on admission indicating increased risk for in-hospital mortality Presented with cough, shortness of breath. Most likely sources include pulmonary and UTI CXR: Bilateral pneumonia and diffuse in left lung. Pro-Emiliano 12.69 and LA 4.1 workup: Daily CBC, blood cultures, urine culture, influenza B positive Plan: Continue IV Zosyn & IV vancomycin. Blood cultures preliminarily showing GPC and urine culture grew Klebsiella pneumonia ESBL. Sputum culture showed mixed patricia. We will order repeat blood cultures today and continue broad-spectrum antibiotics. Continue Tamiflu # Symptomatic anemia # Thrombocytopenia Patient has history of frequent blood transfusions and concern for myelodysplastic syndrome Hemoglobin 6.4 on admission with MCV 102 Plan: FOBT pending, folate & vitamin B12 relatively normal. S/P 2 units PRBCs with improvement of hemoglobin to 8.0. Repeat hematology panel in am. Hold all chemical anticoagulation. Patient will need close outpatient follow-up with his nurse educator/oncologist. # Transaminitis Most likely secondary to ischemia in the setting of severe sepsis, anemia, and soft blood pressure Liver ultrasound showed absent gallbladder, 10 mm CBD with no stones and fatty liver Plan: Continue to avoid hypotension. Avoid hepatotoxic agents. Repeat LFTs in AM. # ESTELLA on CKD Baseline creatinine appears to be around 1.8. On admission creatinine 2.3 and BUN 76. ESTELLA likely secondary to prerenal azotemia in the setting of sepsis and symptomatic anemia Plan: Mild improvement in creatinine to 2.5 from 2.7 yesterday although significantly elevated BUN to 102. We will consult nephrology and recommendations appreciated. Continue to avoid nephrotoxic agents and we will proceed with soft diuresis today. # Chronic systolic heart failure Previous echo showed ejection fraction of 30% and does not appear to be in acute exacerbation at this time. BNP 3163 in the setting of ESTELLA Echocardiogram: Dilated ischemic cardiomyopathy with severe systolic dysfunction, EF 15 to 20% with severe right ventricular dysfunction. Plan: Patient was given fluids on admission and tachycardia pi?a present today. We will resume low-dose Bumex and monitor for improvement. Continue Coreg. Holding TYRON/ARB in the setting of ESTELLA. # Lactic acidosis-Resolved On admission lactic acid 4.1, most likely type A lactic acidosis secondary to sepsis Plan: Resolved. No further workup needed at this time. # Hypothyroidism Plan: Continue home levothyroxine Dr. Bautista
[2024-09-06] MEDS: AZITHROMYCIN 250 MG TABLET 500 MG PO (10:18)
[2024-09-06] MEDS: FINASTERIDE 5 MG TABLET PO (10:18)
[2024-09-06] MEDS: PANTOPRAZOLE 40 MG TABLET PO (10:18)
[2024-09-06] MEDS: PIPER/TAZO 3.375 GM 50 ML IV (10:18)
[2024-09-06] MEDS: ACETAMINOPHEN w/COD 300-30 TABLET 1 TAB PO (10:25)
[2024-09-06] MEDS: SENNA TABLET 1 TAB PO (10:26)
[2024-09-06] MEDS: SODIUM CHLORIDE 0.9% 250 ML 250 ML 999 ML IV (10:52)
[2024-09-06] MEDS: OSELTAMIVIR 30 MG CAPSULE PO (11:02)
[2024-09-06] MEDS: EPOETIN ALFA-EPBX INJ 40,000 UNIT/ML VIAL (ESRD) 40000 UNIT SC (11:18)
[2024-09-06] MEDS: VANCOMYCIN/NS 500 MG IVPB 100 ML 120 MG IV (11:22)
[2024-09-06] MEDS: BUMETANIDE INJ 0.25 MG/ML VIAL 4 ML 1 MG IVP (11:22)
--- NOTE | 2024-09-06 12:42 | ESCONSULT_ITS ---
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 Transthoracic echo unremarkable no signs of vegetations ejection fraction remains depressed at 15 to 20%. Evaluated the patient and the intensive care unit critical condition and the patient will be monitoring closely and with me agree with the treatment plan recommendation all essential complaints are reviewed by me with the documentation by PGY 2 HPI Data of Consult Requesting Physician: Henrik Sabillon MD Admitting Provider: Samuel Bautista MD Attending Provider: Henrik Sabillon MD Primary Care Provider: Ray Gillette MD Consult Narrative History of present illness: Patient is an 89-year-old male with past medical history of CAD, CABG, HFrEF with EF 20% s/p PATCH SANDER-D, ischemic cardiomyopathy, MRSA bacteremia, hypertension, GERD, BPH, CKD stage IV, hypothyroidism, and chronic anemia requiring multiple blood transfusion, who presented to the ED with cough, shortness of breath, and chest pain. Patient is well-known by Dr. Sabillon and cardiology was consulted due to extensive cardiac history. cc:: cc: Henrik Sabillon MD Exam Vital Signs Temp Pulse Resp BP Pulse Ox O2 Del Method O2 Flow Rate 97.0 F 89 33 H 104/77 95 Nasal Cannula 1 09/05/24 16:00 09/06/24 11:22 09/06/24 06:00 09/06/24 11:22 09/06/24 06:00 09/05/24 16:00 09/05/24 18:31 Narrative Exam General Appearance: Pt in mild acute distress with nasal cannula sitting upright in bed. Lungs: Scattered crackles in upper bases, otherwise no wheezing noted. CVS: Irregularly, irregular, S1/S2 heard, no murmurs or rubs appreciated, mild JVD noted, trace pedal edema bilaterally ABD: Soft, non-tender, non-distended, BS + in all 4 quadrants EXT: no deformity/edema/lesions/cyanosis/clubbing, radial pulses 2+ BL, DP pulses 2 + BL SKIN: Skin exam normal without any rashes. Results Labs 09/06/24 04:47 09/06/24 04:47 Labs: Short CBC 09/06/24 Range/Units 04:47 WBC 3.6 L (3.8-10.6) Thou/mm3 Hgb 8.3 L (13.5-16.0) g/dL Hct 24.1 L (41.0-53.0) % Plt Count 92 L (140-440) Thou/mm3 BMP 09/06/24 04:47 Sodium 134 L Potassium 4.4 D Chloride 105 Carbon Dioxide 18.6 L BUN 102 H* Creatinine 2.5 H Glucose 101 Calcium 8.6 Liver Function 09/06/24 Range/Units 04:47 Total Bilirubin 0.8 D (0.3-1.2) mg/dL AST 228 H (0-34) U/L ALT 595 H* (10-49) U/L Alkaline Phosphatase 84 (46-116) U/L Albumin 3.1 L (3.4-4.8) gm/dL ABG Interpretation ABG results: 09/04/24 11:10 ABG pH 7.43 ABG pCO2 27 L ABG pO2 28 L* ABG HCO3 18 L ABG O2 Saturation 48 L ABG Base Excess -6 L Quality Measures Quality Measures none Advance care planning discussed with:: patient Medications Home Medications and Allergies Home Medications ?Medication ?Instructions ?Recorded ?Confirmed ?Type aspirin 81 mg tablet 81 mg PO DAILY 08/16/23 07/31/24 History carvedilol 25 mg tablet 25 mg PO BID 08/16/23 07/31/24 History finasteride 5 mg tablet 5 mg PO DAILY 08/16/23 07/31/24 History fluticasone propionate 50 1 spray intranasal BID 08/16/23 07/31/24 History mcg/actuation nasal spray,suspension levothyroxine 25 mcg tablet 25 mcg PO DAILY 08/16/23 07/31/24 History pantoprazole 40 mg tablet,delayed 40 mg PO DAILY 08/16/23 07/31/24 History release sacubitril 49 mg-valsartan 51 mg 1 tab PO BID 08/16/23 07/31/24 History tablet (Entresto) tamsulosin 0.4 mg capsule 0.4 mg PO DAILY 08/16/23 07/31/24 History hydroxyzine HCl 50 mg tablet 50 mg PO QID PRN 07/31/24 07/31/24 History epoetin jackie-epbx 40,000 unit/mL 40,000 unit IV QWEEK 09/05/24 09/05/24 History injection solution (Retacrit) epoetin jackie-epbx 40,000 unit/mL unit 09/05/24 History injection solution (Retacrit) Allergies Allergy/AdvReac Type Severity Reaction Status Date / Time No Known Allergies Allergy Verified 09/04/24 10:08 Visit Medications Acetaminophen (Acetaminophen 325 Mg Tablet) 650 mg PO Q6H PRN; Protocol PRN Reason: pain and Fever >100.4 Stop: 10/04/24 14:20 Hydrocodone Bitart/Acetaminophen (Hydrocodone/Apap 5/325 Tablet) 1 tab PO Q4HR PRN PRN Reason: PAIN SCALE 4-10(Mod-Sev Stop: 09/09/24 14:20 Bumetanide (Bumetanide Inj 0.25 Mg/Ml Vial 4 Ml) 1 mg IVP QDAY [facility] Stop: 10/06/24 10:59 Last Admin: 09/06/24 11:22 Dose: 1 mg Carvedilol (Carvedilol 3.125 Mg Tablet) 3.125 mg PO BID PRASANTH Stop: 10/05/24 08:59 Finasteride (Finasteride 5 Mg Tablet) 5 mg PO QDAY PRASANTH Stop: 10/05/24 08:59 Last Admin: 09/06/24 10:18 Dose: 5 mg Piperacillin/Tazobactam/Dextrose (Zosyn) 50 mls @ 12.5 mls/hr IV Q12HR PRASANTH Stop: 09/13/24 20:59 Levothyroxine Sodium (Levothyroxine Sodium 25 Mcg Tablet) 25 mcg PO ACBR PRASANTH Stop: 10/05/24 05:59 Last Admin: 09/06/24 05:54 Dose: 25 mcg Ondansetron HCl (Ondansetron Inj 2 Mg/Ml Inj 2 Ml) 4 mg IV Q6H PRN; Protocol PRN Reason: NAUSEA OR VOMITING Stop: 10/04/24 14:20 Oseltamivir Phosphate (Oseltamivir 30 Mg Capsule) 30 mg PO QDAY [facility] Stop: 09/09/24 08:59 Last Admin: 09/06/24 11:02 Dose: 30 mg Pantoprazole Sodium (Pantoprazole 40 Mg Tablet) 40 mg PO QDAY [facility] Stop: 10/05/24 08:59 Last Admin: 09/06/24 10:18 Dose: 40 mg Pharmacy Consult (Vancomycin Pharmacy To Dose 1 Each Each) 1 each IV QDAY PRN PRN Reason: consult Stop: 10/05/24 11:44 Sennosides (Senna Tablet) 1 tab PO QDAY PRN; Protocol PRN Reason: constipation Stop: 10/04/24 14:20 Last Admin: 09/06/24 10:26 Dose: 1 tab Discontinued Medications Acetaminophen/Codeine Phosphate (Acetaminophen W/Cod 300-30 Tablet) 1 tab PO X1 ONE Stop: 09/06/24 08:57 Last Admin: 09/06/24 10:25 Dose: 1 tab Azithromycin (Azithromycin 250 Mg Tablet) 500 mg PO QDAY [facility] Stop: 09/12/24 08:59 Last Admin: 09/06/24 10:18 Dose: 500 mg Epoetin Jackie (Epoetin Jackie-Epbx Inj 40,000 Unit/Ml Vial (Esrd)) 40,000 unit SC X1 ONE Stop: 09/06/24 11:01 Last Admin: 09/06/24 11:18 Dose: 40,000 unit Furosemide (Furosemide Inj 10 Mg/Ml 4ml Vial) 20 mg IVP X1 ONE Stop: 09/04/24 10:51 Last Admin: 09/04/24 11:26 Dose: 20 mg Ceftriaxone Sodium 1,000 mg/ (Sodium Chloride) 50 mls @ 100 mls/hr IV X1 ONE Stop: 09/04/24 12:39 Last Infusion: 09/04/24 13:50 Dose: Infused Azithromycin 500 mg/ Sodium (Chloride) 250 mls @ 250 mls/hr IV X1 ONE Stop: 09/04/24 13:42 Last Infusion: 09/04/24 15:49 Dose: Infused Ceftriaxone Sodium 1,000 mg/ (Sodium Chloride) 50 mls @ 100 mls/hr IV X1 ONE Stop: 09/04/24 13:12 Last Admin: 09/04/24 13:09 Dose: Not Given Magnesium Sulfate (Magnesium Sulfate Ivpb) 2 gm in 50 mls @ 25 mls/hr IV X1 ONE Stop: 09/04/24 14:42 Last Infusion: 09/04/24 18:24 Dose: Infused Ceftriaxone Sodium/Dextrose (Rocephin/D5w 1gm Iv Premix) 50 mls @ 100 mls/hr IV QDAY PRASANTH Stop: 09/11/24 08:59 Last Infusion: 09/05/24 10:00 Dose: Infused Magnesium Sulfate (Magnesium Sulfate Ivpb) 2 gm in 50 mls @ 25 mls/hr IV X1 ONE Stop: 09/04/24 17:55 Last Infusion: 09/04/24 20:30 Dose: Infused Sodium Chloride (Ns) 250 mls @ 999 mls/hr IV .Q16M ONE Stop: 09/04/24 16:26 Last Infusion: 09/04/24 18:24 Dose: Infused Vancomycin/Sodium Chloride (Vancomycin/Ns 1 Gm Ivpb) 200 mls @ 120 mls/hr IV X1 ONE Stop: 09/05/24 13:24 Last Admin: 09/05/24 12:41 Dose: 120 mls/hr Sodium Chloride (Ns) 250 mls @ 999 mls/hr IV .Q16M ONE Stop: 09/05/24 11:52 Last Admin: 09/05/24 12:29 Dose: 999 mls/hr Sodium Chloride (Ns) 250 mls @ 999 mls/hr IV .Q16M ONE Stop: 09/06/24 08:04 Last Admin: 09/06/24 10:52 Dose: 999 mls/hr Piperacillin/Tazobactam/Dextrose (Zosyn) 50 mls @ 100 mls/hr IV X1 ONE Stop: 09/06/24 09:14 Last Admin: 09/06/24 10:18 Dose: 100 mls/hr Vancomycin/Sodium Chloride (Vancomycin/Ns 500 Mg Ivpb) 100 mls @ 120 mls/hr IV X1 ONE Stop: 09/06/24 10:49 Last Admin: 09/06/24 11:22 Dose: 120 mls/hr Morphine Sulfate (Morphine Sulf Inj 10 Mg/Ml Vial) 1 mg IVP X1 ONE Stop: 09/04/24 10:51 Last Admin: 09/04/24 11:32 Dose: Not Given Nitroglycerin (Nitroglycerin Oint 2% 1 Inch Packet) 0.5 inch TOP X1 ONE Stop: 09/04/24 10:51 Last Admin: 09/04/24 11:27 Dose: 0.5 inch Oseltamivir Phosphate (Oseltamivir 75 Mg Capsule) 75 mg PO X1 ONE Stop: 09/04/24 12:37 Last Admin: 09/04/24 12:44 Dose: 75 mg Oseltamivir Phosphate (Oseltamivir 30 Mg Capsule) 30 mg PO QDAY [facility] Stop: 09/09/24 08:59 Pharmacy Consult (Vancomycin Pharmacy To Dose 1 Each Each) 1 each IV QDAY PRASANTH Stop: 10/05/24 11:44 Sodium Chloride (Sodium Chloride Rt 10% 15 Ml Nebu) 5 ml INH X1 ONE Stop: 09/04/24 15:49 Last Admin: 09/04/24 16:32 Dose: 5 ml Assessment & Plan Plan Patient is an 89-year-old male with past medical history of CAD, CABG, HFrEF with EF 20% s/p PATCH SANDER-D, ischemic cardiomyopathy, MRSA bacteremia, hypertension, GERD, BPH, CKD stage IV, hypothyroidism, and chronic anemia requiring multiple blood transfusion, who presented to the ED with cough, shortness of breath, and chest pain. Patient is well-known by Dr. Sabillon and cardiology was consulted due to extensive cardiac history. #HFrEF EF 20% s/p PATCH SANDER-D Patient can be diuresed with Bumex 2 mg daily Given CKD, if patient goes into A-fib RVR recommend amnio, avoid digoxin or diltiazem. Cardiology will follow patient closely appreciate the consult. # Acute hypoxic respiratory failure # Sepsis # Community-acquired pneumonia # Influenza pneumonia # Urinary tract infection # Bacteremia # Symptomatic anemia # Thrombocytopenia # Transaminitis # ESTELLA on CKD # Chronic systolic heart failure # Lactic acidosis-Resolved # Hypothyroidism Continue management per primary Case discussed with attending tappet adjuster Dr. Ridge Haskins, PGY-2
--- NOTE | 2024-09-06 15:31 | PC.NURSE ---
MD Newby made aware of patient's BP 90/52 MAP 64. Per MD Newby hold the scheduled Bumex IVP.
--- NOTE | 2024-09-06 17:12 | PC.NURSE ---
Report given to JABIER Middleton at this time
[2024-09-07] VITALS (11 sets, daily range): BP systolic 93–108; BP diastolic 53–66; PULSE 81–107; RESP 16–30; TEMP 36.3–37; O2SAT 93–100; BMI 26.1
[2024-09-07] MEDS: ALBUTEROL/IPRATROPIUM (Duoneb) RT SOL 3 ML NEBU INH ×4 (00:29→18:33)
[2024-09-07] MEDS: LEVOTHYROXINE SODIUM 25 MCG TABLET PO (05:18)
[2024-09-07 06:08] LABS: Basophils % (Auto) 1 % (0-2.5); Eosinophils # (Auto) 0.1 Thou/mm3 (0.0-0.5); Eosinophils % (Auto) 3 % (0-10); Hematocrit 23.8 % (41.0-53.0); Immature Granulocytes % (Auto) 1 % (0-0); Immature Granulocytes Auto 0.03 Thou/mm3 (0.00-0.00); Lymphocytes # (Auto) 0.8 Thou/mm3 (1.0-4.8); Lymphocytes % (Auto) 22 % (10-50); Mean Corpuscular HGB Conc 33.2 g/dl (31.0-37.0); Mean Corpuscular Hemoglobin 31.9 pg (25.0-35.0); Mean Corpuscular Volume 96 fL (80-100); Monocytes # (Auto) 0.3 Thou/mm3 (0.0-0.8); Monocytes % (Auto) 9 % (0-12); Neutrophils # (Auto) 2.3 Thou/mm3 (1.8-7.7); Neutrophils % (Auto) 65 % (37-80); Nucleated Red Blood Cell % 0 /100 WBC (0); Platelet Count 103 Thou/mm3 (140-440); RDW Standard Deviation 65.8 fL (35.1-43.9); Red Blood Count 2.48 Miln/mm3 (4.50-5.90); White Blood Count 3.5 Thou/mm3 (3.8-10.6)
[2024-09-07 06:12] LABS: Hemoglobin 7.9 g/dL (13.5-16.0)
[2024-09-07 06:42] LABS: Alanine Aminotransferase 481 U/L (10-49); Albumin, Serum 3.1 gm/dL (3.4-4.8); Albumin/Globulin Ratio 0.9 (1.2-2.2); Alkaline Phosphatase 81 U/L (46-116); Anion Gap 12 (7-16); Aspartate Amino Transferase 200 U/L (0-34); BUN/Creatinine Ratio 39 Ratio (12-20); Bilirubin,Total 0.8 mg/dL (0.3-1.2); Calcium 8.6 mg/dL (8.3-10.6); Calcium (Corrected) 9.3 mg/dL (8.5-10.1); Carbon Dioxide 18.5 mMol/L (20.0-31.0); Chloride 105 mMol/L (98-107); Creatinine (Component) 2.7 mg/dL (0.6-1.3); Estimated Creatinine Clearance 18.6 mL/min (>60); Globulin 3.6 gm/dL (2.3-3.5); Glucose 94 mg/dL (74-106); Magnesium 2.2 mg/dL (1.6-2.6); Osmolality,Calculated 303 (275-295); Potassium 4.2 mMol/L (3.4-5.1); Sodium 135 mMol/L (136-145); Total Protein 6.7 gm/dL (5.7-8.2); Vancomycin,Random 12.6 mcg/mL; eGFR 22 See Note
[2024-09-07 06:43] LABS: Blood Urea Nitrogen 105 mg/dL (9-23)
[2024-09-07] MEDS: LEVOFLOXACIN/D5W 750MG IVPB 750 MG/150 ML BAG 100 MG IV (08:39)
[2024-09-07] MEDS: FINASTERIDE 5 MG TABLET PO (08:39)
[2024-09-07] MEDS: PANTOPRAZOLE 40 MG TABLET PO (08:39)
[2024-09-07] MEDS: BUMETANIDE INJ 0.25 MG/ML VIAL 4 ML 2 MG IVP (08:39)
[2024-09-07] MEDS: OSELTAMIVIR 30 MG CAPSULE PO (08:39)
--- NOTE | 2024-09-07 09:03 | PD.RESPRO ---
Documentation for date of: 09/07/24 Subjective Subjective Interval history: Acute overnight events. No new complaints. Still feels short of breath on nasal cannula. Denies fever, chills, headaches, chest pain, sob, cough, GI or urinary symptoms. Exam Vital Signs Temp Pulse Resp BP Pulse Ox O2 Del Method O2 Flow Rate 97.4 F 93 30 H 108/59 L 95 Nasal Cannula 2 09/07/24 08:00 09/07/24 08:39 09/07/24 08:00 09/07/24 08:39 09/07/24 08:00 09/07/24 08:00 09/07/24 08:00 Narrative Exam General: A/O x3, ill appearing elderly male Eyes: PERRL, EOMI. anicteric, vision grossly intact. Ears: No ear pain, no ear discharge, Hearing grossly intact. Nose: No nasal discharge. Mouth/Throat: Dry mucous membranes, no redness, no lesions. Neck: Neck supple, non-tender, no cervical lymphadenopathy. Lungs: Clear SHAHEEN to auscultation and percussion, No accessory muscle use. Cardio: Normal S1/S2, regular rhythm, no murmurs, no JVD Abdomen: Soft, non-tender, no palpable masses, peristalsis present, no guarding or rebound. Extremities: Symmetrical, no significant deformities, 1+ peripheral edema only in SHAHEEN feet and ankle, non-tender, peripheral pulses presents. Skin: No rashes, no lesions, warm to touch. Neuro: No focal neurological deficits. motor and sensory intact, SHAHEEN LE strength 4/5 and UE 5/5 Psych: Cooperative, appropriate mood and effect. Objective Labs 09/08/24 05:20 09/08/24 05:20 Labs: Laboratory Results - last 24 hr 09/07/24 04:41 WBC 3.5 L RBC 2.48 L Hgb 7.9 L Hct 23.8 L MCV 96 MCH 31.9 MCHC 33.2 RDW Std Deviation 65.8 H Plt Count 103 L Neut % (Auto) 65 Lymph % (Auto) 22 [place] % (Auto) 9 Eos % (Auto) 3 Baso % (Auto) 1 Neut # (Auto) 2.3 Lymph # (Auto) 0.8 L [place] # (Auto) 0.3 Eos # (Auto) 0.1 Baso # (Auto) 0.0 Immature Gran # (Auto) 0.03 H Absolute Nucleated RBC 0.00 Immature Gran % 1 H Nucleated RBC % 0 Sodium 135 L Potassium 4.2 Chloride 105 Carbon Dioxide 18.5 L Anion Gap 12 BUN 105 H* Creatinine 2.7 H Estim Creat Clear Calc 18.6 L eGFR 22 L BUN/Creatinine Ratio 39 H Glucose 94 Calculated Osmolality 303 H Calcium 8.6 Corrected Calcium 9.3 Phosphorus 6.0 H Magnesium 2.2 Total Bilirubin 0.8 AST 200 H ALT 481 H Alkaline Phosphatase 81 Total Protein 6.7 Albumin 3.1 L Globulin 3.6 H Albumin/Globulin Ratio 0.9 L Random Vancomycin 12.6 ABG Interpretation ABG results: 09/04/24 11:10 ABG pH 7.43 ABG pCO2 27 L ABG pO2 28 L* ABG HCO3 18 L ABG O2 Saturation 48 L ABG Base Excess -6 L Quality Measures Quality Measures none Advance care planning discussed with:: patient Assessment & Plan Assessment Current Active Medications: Generic Name Dose Route Start Last Admin Trade Name Freq PRN Reason Stop Dose Admin Acetaminophen 650 mg 09/04/24 14:21 Acetaminophen 325 Mg Tablet PO 10/04/24 14:20 Q6H PRN pain and Fever >100.4 Protocol Hydrocodone Bitart/Acetaminophen 1 tab 09/04/24 14:21 Hydrocodone/Apap 5/325 Tablet PO 09/09/24 14:20 Q4HR PRN PAIN SCALE 4-10(Mod-Sev Albuterol/Ipratropium 3 ml 09/07/24 01:00 09/07/24 06:42 Albuterol/Ipratropium (Duoneb) Rt Chio 3 Ml Nebu INH 10/07/24 00:59 3 ml Q6HRRT PRASANTH Administration Bumetanide 2 mg 09/07/24 09:00 09/07/24 08:39 Bumetanide Inj 0.25 Mg/Ml Vial 4 Ml IVP 10/07/24 08:59 2 mg QDAY PRASANTH Administration Carvedilol 3.125 mg 09/05/24 09:00 Carvedilol 3.125 Mg Tablet PO 10/05/24 08:59 BID PRASANTH Finasteride 5 mg 09/05/24 09:00 09/07/24 08:39 Finasteride 5 Mg Tablet PO 10/05/24 08:59 5 mg QDAY PRASANTH Administration Levofloxacin/Dextrose 750 mg in 150 mls @ 100 mls/hr 09/07/24 09:00 09/07/24 08:39 Levaquin Ivpb IV 09/14/24 08:59 100 mls/hr QOD PRASANTH Administration Vancomycin/Sodium Chloride 100 mls @ 120 mls/hr 09/07/24 10:00 Vancomycin/Ns 500 Mg Ivpb IV 09/07/24 10:49 X1 ONE Levothyroxine Sodium 25 mcg 09/05/24 06:00 09/07/24 05:18 Levothyroxine Sodium 25 Mcg Tablet PO 10/05/24 05:59 25 mcg ACBR PRASANTH Administration Ondansetron HCl 4 mg 09/04/24 14:21 Ondansetron Inj 2 Mg/Ml Inj 2 Ml IV 10/04/24 14:20 Q6H PRN NAUSEA OR VOMITING Protocol Oseltamivir Phosphate 30 mg 09/05/24 09:00 09/07/24 08:39 Oseltamivir 30 Mg Capsule PO 09/09/24 08:59 30 mg QDAY PRASANTH Administration Pantoprazole Sodium 40 mg 09/05/24 09:00 09/07/24 08:39 Pantoprazole 40 Mg Tablet PO 10/05/24 08:59 40 mg QDAY PRASANTH Administration Pharmacy Consult 1 each 09/05/24 11:45 Vancomycin Pharmacy To Dose 1 Each Each IV 10/05/24 11:44 QDAY PRN consult Sennosides 1 tab 09/04/24 14:21 09/06/24 10:26 Senna Tablet PO 10/04/24 14:20 1 tab QDAY PRN Administration constipation Protocol Plan In summary: 89-year-old male with extensive past medical history of HFrEF (20 to 25% EF 2022), ischemic cardiomyopathy, CAD s/p CABG, MRSA bacteremia, MRSA bacteremia, defibrillator, hypertension, GERD, BPH, CKD stage IV, hypothyroidism, chronic anemia requiring multiple blood transfusion, and potential myelodysplastic syndrome was admitted to the hospital on 09/04/2024 due to acute symptomatic anemia and concerns for sepsis likely secondary to influenza pneumonia versus UTI. Continued on TAMIFLU, LEVAQUIN for Klebsiella UTI and strep pneumo bacteremia. Pending speech evaluation for new onset dysphagia. Pending thoracentesis for left pleural effusion. Pending FOBT to rule out active GI blood loss. Pending nephrology recommendations for ESTELLA on CKD. Prescient recommendations from cardiology and nephrology. Sepsis Community-acquired pneumonia Influenza pneumonia Klebsiella UTI Strep pneumo Bacteremia Left pleural effusion Presenting with cough, shortness of breath. Septic on admission with 2/4 SIRS positive and source being pulmonary versus UTI. CXR showed pneumonia, worse in left lung. Admission Pro-Calc 12.6, lactic acid 4.1. Tested positive for influenza B. Previously on CEFTRIAXONE and AZITHROMYCIN. Continued on TAMIFLU. Previously on VANCOMYCIN for GPC's uremia. Continued on LEVAQUIN for strep pneumo bacteremia and Klebsiella UTI. Afebrile. MRSA nasal swab negative. ? Continue TAMIFLU 30 mg daily (09/05 to [present]) ? Continue LEVAQUIN 750 mg daily (09/06 to [present]) ? Physical therapy ? Pending final blood culture ? 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 Admission Hgb 6.4, MCV 102. Hgb 8.3 stable after 1 unit RBCs. ? Continue weekly PROCRIT 40,000 units (given every Sunday) ? Transfuse if Hgb less than 8 ? Daily CBC ? Pending FOBT Transaminitis (improving) Most likely secondary to ischemia in the setting of severe sepsis, anemia, and soft blood pressure. Liver ultrasound showed absent gallbladder, 10 mm CBD with no stones and fatty liver ? Avoid hypotension ? Avoid hepatotoxic agents ? Daily LFTs Pre-renal ESTELLA vs Cardiorenal vs ATN? CKD stage IIIb CR consistently between 2.3?2.7, baseline around 1.8. GFR 22 with baseline around 30?40. Patient improved with diuresis, however we held diuresis secondary to low MAP. ? Renally dose meds, avoid overdiuresis and NEPHROTOXINS ? Holding BUMEX 2 mg daily in settings of cell blood pressure ? Pending nephrology recommendations Chronic systolic heart failure, EF 15-20% Previous echo showed ejection fraction of 30%, repeat echo this admission showed EF 50-20%. Admission BNP 3163, likely in settings of ESTELLA. No signs of acute CHF exacerbation at this time. ? Holding BUMEX 2 mg daily in settings of cell blood pressure ? Continue CARVEDILOL 3.125 mg BID Cardiology recommended AMIODARONE in case patient goes into A-fib with RVR, avoid DIGOXIN or DILTIAZEM. BPH No signs of urinary retention this time. ? Continue home FINASTERIDE 5 mg daily Hypothyroidism TSH 5.90, free T4 normal. ? Continue LEVOTHYROXINE 25 mcg AC BR GERD ? Continue PROTONIX daily Dysphagia Complaining of difficulty swallowing, as reported by nurse at bedside. ? Aspiration precautions ? Pending formal speech eval Lactic acidosis (resolved) On admission lactic acid 4.1, most likely type A lactic acidosis secondary to sepsis Plan: Resolved. No further workup needed at this time. Health maintenance Diet: Cardiac GI prophylaxis: PROTONIX DVT prophylaxis: SCDs Antibiotics: TAMIFLU, VANCOMYCIN, LEVAQUIN CODE STATUS: Full code Disposition: Pending symptom improvement. Patient case was discussed with attending, Samuel Bautista MD and senior resident Dr. Barraza. Kaylan Newby DO PGYI Attending Provider Attestation/Addendum I have examined the patient, reviewed labs and imaging findings, discussed the case with the resident(s), and reviewed entered orders. 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 In the emergency room patient was found to have sepsis and thus hospitalist team consulted for continuation of care. # Acute hypoxic respiratory failure: multifactorial secondary to influenza pneumonitis and superimposed bacterial pneumonia. ABG reviewed. Continue supplemental oxygen and wean as tolerated. # Sepsis- Resolved # Community-acquired pneumonia # Influenza type B # Urinary tract infection # Bacteremia SIRS: 2 out of 4 SIRS criteria met qSOFA: 2 points on admission indicating increased risk for in-hospital mortality Presented with cough, shortness of breath. Most likely sources include pulmonary and UTI CXR: Bilateral pneumonia and diffuse in left lung. Pro-Emiliano 12.69 and LA 4.1 workup: Blood cultures grew Streptococcus pneumonia and urine culture grew Klebsiella pneumonia Plan: DC IV vancomycin and Zosyn. Start levofloxacin based off culture results. Continue Tamiflu and wean supplemental oxygen as tolerated. # Symptomatic anemia # Thrombocytopenia Patient has history of frequent blood transfusions and concern for myelodysplastic syndrome Hemoglobin 6.4 on admission with MCV 102 Plan: FOBT pending, folate & vitamin B12 relatively normal. S/P 2 units PRBCs with improvement of hemoglobin to 8.0. Repeat hematology panel in am. Hold all chemical anticoagulation. Patient will need close outpatient follow-up with his surgical services asst/oncologist. # Transaminitis Most likely secondary to ischemia in the setting of severe sepsis, anemia, and soft blood pressure Liver ultrasound showed absent gallbladder, 10 mm CBD with no stones and fatty liver Plan: Continue to avoid hypotension. Avoid hepatotoxic agents. Repeat LFTs in AM. # ESTELLA on CKD Baseline creatinine appears to be around 1.8. On admission creatinine 2.3 and BUN 76. ESTELLA likely secondary to prerenal azotemia in the setting of sepsis and symptomatic anemia Plan: Nephrology consulted, recommendations appreciated. Significantly elevated blood urea nitrogen to 105 although patient appears to be tolerating well. Mild hyperphosphatemia present. Hold Diuresis for now. # Chronic systolic heart failure Previous echo showed ejection fraction of 30% and does not appear to be in acute exacerbation at this time. BNP 3163 in the setting of ESTELLA Echocardiogram: Dilated ischemic cardiomyopathy with severe systolic dysfunction, EF 15 to 20% with severe right ventricular dysfunction. Plan: Patient was given fluids on admission and tachycardia pi?a present today. Hold bumex. Continue Coreg. Holding TYRON/ARB in the setting of ESTELLA. # Lactic acidosis-Resolved On admission lactic acid 4.1, most likely type A lactic acidosis secondary to sepsis Plan: Resolved. No further workup needed at this time. # Hypothyroidism Plan: Continue home levothyroxine Dr. Bautista
[2024-09-07] MEDS: VANCOMYCIN/NS 500 MG IVPB 100 ML 120 MG IV (10:38)
--- NOTE | 2024-09-07 14:53 | PD.NEPHPROG ---
Documentation for date of: 09/07/24 Subjective Subjective Interval history: Chart review done as patient seems to be a poor historian. Mr. Wyatt is a 89-year-old fragile gentleman with extensive past medical history of HFrEF (20 to 25% EF 2022), ischemic cardiomyopathy, CAD s/p CABG, MRSA bacteremia, defibrillator, hypertension, GERD, BPH, CKD stage IV(being followed by a skills trainer-??? Not sure of the name), hypothyroidism, chronic anemia requiring multiple blood transfusion, and potential myelodysplastic syndrome was admitted to the hospital on 09/04/2024 after coming to the ED with cough, shortness of breath, and chest pain. Patient was accompanied by son at bedside, but were poor historians. During assessment patient stated that around 2 days ago he started developing a productive cough, and today he became short of breath. Patient lives at [facility]. Patient states that he has needed multiple blood transfusions in the past due to chronic anemia, but upon chart review patient does have bone marrow biopsy which came back with concerns for possible myelodysplastic syndrome. In the emergency department patient did receive 2 units of blood. Labs showed hemoglobin 6.4, platelets 121. Sodium 133, bicarbonate 15.6, BUN 76, creatinine 2.3, lactic acid 4.1, magnesium 1.5, AST 138, ALT 134, CRP 27.5, BNP 3163, Pro-Emiliano 12.6, TSH 5.9, urinalysis shows UTI. Patient positive for flu. EKG showed paced rhythm. Chest x-ray showed extensive bilateral pneumonia. Patient admitted to telemetry with a diagnosis of ESTELLA, pneumonia. Currently seen in respiratory isolation. Nephrology consultation requested in view of ESTELLA. 09/07/2024 patient moved to medical floor. Son, [id number] at bedside. Had a long conversation with them. Son stated patient had seen Dr. Leonard. Labs reviewed. Medications reviewed. BUN still significantly elevated. Suspect patient in ATN. Informed Dr. Leonard-will transfer care to him. No need for emergency dialysis. Agree with holding Bumex for now. Review of Systems Review of Systems Narrative Review of Systems: Still having significant shortness of breath, cough. Decreased urinary output. Exam Vital Signs Temp Pulse Resp BP Pulse Ox O2 Del Method O2 Flow Rate 37.0 C 107 H 23 H 103/66 99 Nasal Cannula 2 09/07/24 16:00 09/07/24 18:34 09/07/24 18:34 09/07/24 16:00 09/07/24 18:34 09/07/24 16:00 09/07/24 18:34 Narrative Exam GENERAL APPEARANCE: Elderly gentleman currently seen in medical floor NECK: Neck supple, no JVD or bruit CARDIOVASCULAR: Heart regular, no murmurs LUNGS/CHEST: Few rhonchi noted bilaterally ABDOMEN: Soft, nontender, nondistended. No masses. Normal bowel sounds. EXTREMITIES: No edema, clubbing or cyanosis. SKIN: Skin exam normal without any rashes MUSCULOSKELETAL: in bed NEUROLOGICAL : Patient seems to have memory lapses. Objective Labs 09/07/24 04:41 09/07/24 04:41 Labs: Laboratory Results - last 24 hr 09/07/24 04:41 WBC 3.5 L RBC 2.48 L Hgb 7.9 L Hct 23.8 L MCV 96 MCH 31.9 MCHC 33.2 RDW Std Deviation 65.8 H Plt Count 103 L Neut % (Auto) 65 Lymph % (Auto) 22 [place] % (Auto) 9 Eos % (Auto) 3 Baso % (Auto) 1 Neut # (Auto) 2.3 Lymph # (Auto) 0.8 L [place] # (Auto) 0.3 Eos # (Auto) 0.1 Baso # (Auto) 0.0 Immature Gran # (Auto) 0.03 H Absolute Nucleated RBC 0.00 Immature Gran % 1 H Nucleated RBC % 0 Sodium 135 L Potassium 4.2 Chloride 105 Carbon Dioxide 18.5 L Anion Gap 12 BUN 105 H* Creatinine 2.7 H Estim Creat Clear Calc 18.6 L eGFR 22 L BUN/Creatinine Ratio 39 H Glucose 94 Calculated Osmolality 303 H Calcium 8.6 Corrected Calcium 9.3 Phosphorus 6.0 H Magnesium 2.2 Total Bilirubin 0.8 AST 200 H ALT 481 H Alkaline Phosphatase 81 Total Protein 6.7 Albumin 3.1 L Globulin 3.6 H Albumin/Globulin Ratio 0.9 L Random Vancomycin 12.6 ABG Interpretation ABG results: 09/04/24 11:10 ABG pH 7.43 ABG pCO2 27 L ABG pO2 28 L* ABG HCO3 18 L ABG O2 Saturation 48 L ABG Base Excess -6 L Assessment & Plan Assessment and plan (1) Acute on chronic renal failure: Status: Acute Assessment and plan: Acute renal failure secondary to prerenal azotemia. BUN out of proportion to creatinine-consistent with possible GI bleed vs from diuretics. BUN significantly elevated. check stool guaiac. Will monitor him closely. Underlying sepsis/hypotension could be the cause for his prerenal azotemia. 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 No need for emergency dialysis. Agree with holding Bumex. Patient follows up with Dr. Leonard-will defer consult to him.Did inform Dr. Leonard-will see patient tomorrow. (2) UTI (urinary tract infection): Status: Acute Assessment and plan: Broad-spectrum antibiotics. (3) Acute respiratory failure with hypoxia: Status: Acute Assessment and plan: Patient with pneumonia, flu. On antibiotics (4) Pneumonia: Status: Acute Assessment and plan: On antibiotics, Tamiflu (5) Severe anemia: Status: Acute Assessment and plan: Patient noted to have severe anemia. Although WBC is low. Suspect myelodysplastic syndrome. Needing blood transfusions. (6) Sepsis: Status: Acute Assessment and plan: Secondary to pneumonia/UTI. Patient also seems to have shock liver. Significant elevation in LFTs-improving Additional Assessment & Plan Additional Plan: Thank you Samuel for allowing me to participate in the care of Mr. Chan
--- NOTE | 2024-09-07 15:55 | PC.SS ---
Dustin Wyatt is 89 year old male admitted to [facility] for Acute Symptomati Anemia. SS conducted bedside contact with the patient to complete initial assessment and to discuss discharge planning. SW used all precautionary measures to complete initial. Role and reason for the contact was explained to Dustin. Pt is alert and oriented times 4. Pt gave verbal authorization for Dustin Wyatt, son and Dustin Sr [id number], to be present while assessment was conducted. Patient confirmed demographic information. Pt resides in at [facility] with Valeria Wyatt address on facesheet correct. Pt confirmed telephone number is accurate. Patient identifies with Valeria Wyatt, spouse [phone] as his surrogate decision maker. Pt states prior to hospitalization he is needs assistance for some ADL?s. Pt has assigned central supply clerk who assists him 3 times a day to back and forth to meals. Pt has DME- walker and wheelchair; pt does not have O2; pt spouse has O2- vendor [employer]. Pt will need to have O2 ordered if necessary. Pt is open to HH and would prefer [facility]. Pt confirmed no history of mental health or substance use. Pts PCP Ray Gillette. [facility]acy [facility] choice [facility] [address]. Discharge options discussed and the pt will go Home. Pt was not receptive to advance life directive. Family will provide transportation upon DC. No further intervention required at this time, social media strategist would be available to address any further concerns. DC Plan: Home-[facility] Contact: Valeria Wyatt, spouse [phone] Address: Confirmed on face sheet PCP: Ray Gillette
--- NOTE | 2024-09-07 15:59 | PC.SS ---
Dustin Wyatt is 89 year old male admitted to [facility] for Acute Symptomati Anemia. SS conducted bedside contact with the patient to complete initial assessment and to discuss discharge planning. SW used all precautionary measures to complete initial. Role and reason for the contact was explained to Dustin. Pt is alert and oriented times 4. Pt gave verbal authorization for Dustin Wyatt, son and Dustin Sr [id number], to be present while assessment was conducted. Patient confirmed demographic information. Pt resides in at [facility] with Valeria Wyatt address on facesheet correct. Pt confirmed telephone number is accurate. Patient identifies with Valeria Wyatt, spouse [phone] as his surrogate decision maker. Pt states prior to hospitalization he is needs assistance for some ADL?s. Pt has assigned bezel cutter who assists him 3 times a day to back and forth to meals. Pt has DME- walker and wheelchair; pt does not have O2; pt spouse has O2- vendor [employer]. Pt will need to have O2 ordered if necessary. Pt is open to and would prefer [facility]. Pt confirmed no history of mental health or substance use. Pts PCP Ray Gillette. [facility] choice [facility] [place]. Discharge options discussed and the pt will go Home. Pt has advance life directive on file. Family will provide transportation upon DC. No further intervention required at this time, social research assistant would be available to address any further concerns. DC Plan: Home-[facility] Contact: Valeria Wyatt, spouse [phone] Address: Confirmed on face sheet PCP: Ray Gillette
--- NOTE | 2024-09-07 18:25 | ESPR_ITS ---
RE: CHRISTIANE COTTRELL : 1935 DATE OF SERVICE: 09/07/2024 SUBJECTIVE: Christiane Cottrell is doing a little better today. 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 Cardiac echo reviewed and showed ejection fraction is still 15%-20% or less and there are no vegetations. ICD leads are seen without any vegetations. There is no white count elevation. The patient was severely anemic due to myelodysplastic syndrome, requiring transfusion. Hemoglobin now stable at 7.9. I doubt very much patient clinically has endocarditis; though, there were some possible contamination cultures. So far, the results show that urine showed Klebsiella pneumoniae and blood cultures so far, no growth on one of the cultures. OBJECTIVE: General: Clinically, he is still short of breath, continues to improve. Vital Signs: Shows blood pressure 100/60, pulse rate is 100, respirations 27, and temperature normal. Neck: Supple. No JVD. Lungs: Decreased breath sounds. Heart: S1 and S2, regular. S4 gallop heard. Abdomen: Thin and soft. Extremities: Mild edema. Genitourinary and Rectal: Not performed. IMPRESSION: 1. Chronic systolic heart failure. 2. Nonischemic cardiomyopathy, ejection fraction 15%-20%. 3. Status post CRTD implantation in 08/2023 with a previous history of CRTD removed because of infection on the left side. 4. 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 RECOMMENDATIONS: We will continue medical management. If the culture report shows significant positive findings again, we may consider transesophageal echo. For now, I do not see a need for that. If a gram positive cocci and blood cultures were found to be Streptococcus pneumonia, which consisted of pneumonia, I doubt very much patient has endocarditis. DT: 14:36:51 TT: 18:12:00 Ref: [id number] - TID: [id number]
[2024-09-07] MEDS: LACTULOSE SYRUP 20 GM/30 ML UDC 10 GM PO (20:51)
[2024-09-08] VITALS (13 sets, daily range): BP systolic 94–118; BP diastolic 51–79; PULSE 87–117; RESP 18–32; TEMP 36.1–37.5; O2SAT 93–100; BMI 25.6; BMI 25.5
[2024-09-08] MEDS: ALBUTEROL/IPRATROPIUM (Duoneb) RT SOL 3 ML NEBU INH ×4 (01:21→18:41)
[2024-09-08] MEDS: BENZONATATE 100 MG CAPSULE PO ×2 (03:43→15:47)
[2024-09-08] MEDS: LEVOTHYROXINE SODIUM 25 MCG TABLET PO (05:37)
[2024-09-08 06:11] LABS: Basophils % (Auto) 1 % (0-2.5); Eosinophils # (Auto) 0.1 Thou/mm3 (0.0-0.5); Eosinophils % (Auto) 2 % (0-10); Hematocrit 24.2 % (41.0-53.0); Immature Granulocytes % (Auto) 1 % (0-0); Immature Granulocytes Auto 0.03 Thou/mm3 (0.00-0.00); Lymphocytes # (Auto) 0.7 Thou/mm3 (1.0-4.8); Lymphocytes % (Auto) 19 % (10-50); Mean Corpuscular HGB Conc 33.5 g/dl (31.0-37.0); Mean Corpuscular Volume 96 fL (80-100); Monocytes # (Auto) 0.3 Thou/mm3 (0.0-0.8); Monocytes % (Auto) 8 % (0-12); Neutrophils # (Auto) 2.4 Thou/mm3 (1.8-7.7); Neutrophils % (Auto) 70 % (37-80); Nucleated Red Blood Cell % 0 /100 WBC (0); Platelet Count 104 Thou/mm3 (140-440); RDW Standard Deviation 66.6 fL (35.1-43.9); Red Blood Count 2.53 Miln/mm3 (4.50-5.90); White Blood Count 3.5 Thou/mm3 (3.8-10.6)
[2024-09-08 06:12] LABS: Hemoglobin 8.1 g/dL (13.5-16.0)
[2024-09-08 06:23] LABS: INR 1.3 (0.9-1.3); Prothrombin Time 13.5 Seconds (9.0-12.2)
[2024-09-08 06:40] LABS: Alanine Aminotransferase 509 U/L (10-49); Albumin, Serum 3.2 gm/dL (3.4-4.8); Albumin/Globulin Ratio 0.8 (1.2-2.2); Alkaline Phosphatase 83 U/L (46-116); Anion Gap 12 (7-16); Aspartate Amino Transferase 226 U/L (0-34); BUN/Creatinine Ratio 40 Ratio (12-20); Bilirubin,Total 0.8 mg/dL (0.3-1.2); Calcium 8.9 mg/dL (8.3-10.6); Calcium (Corrected) 9.5 mg/dL (8.5-10.1); Chloride 106 mMol/L (98-107); Creatinine (Component) 2.6 mg/dL (0.6-1.3); Estimated Creatinine Clearance 19.4 mL/min (>60); Globulin 4.1 gm/dL (2.3-3.5); Glucose 121 mg/dL (74-106); Osmolality,Calculated 307 (275-295); Phosphorous 5.7 mg/dL (2.4-5.1); Potassium 4.3 mMol/L (3.4-5.1); Sodium 137 mMol/L (136-145); Total Protein 7.3 gm/dL (5.7-8.2); eGFR 23 See Note
[2024-09-08 06:51] LABS: Blood Urea Nitrogen 103 mg/dL (9-23)
--- NOTE | 2024-09-08 09:03 | PD.RESPRO ---
Documentation for date of: 09/08/24 Subjective Subjective Interval history: Dustin Wyatt is an 89-year-old fragile gentleman with extensive past medical history including HFrEF (EF 20 to 25% 2022) ischemic cardiomyopathy, CAD status post CABG and defibrillator, hypertension, GERD, BPH, CKD (followed by outpatient flight control tower operator but unsure of name), hypothyroidism chronic anemia (requiring multiple blood transfusions), potential myelodysplastic syndrome who was admitted on 09/04/2024 acute symptomatic anemia and concerns for sepsis secondary to influenza pneumonia versus UTI. Consulted [facility]. States that he has required multiple blood transfusions in the past for chronic anemia. Per chart review, patient had a bone marrow biopsy and came back with concerns for possible myelodysplastic syndrome. In ED, patient received 2 units PRBC for hemoglobin 6.4, platelets 121. Sodium 133, bicarb 15.6, BUN 76, Cr 2.3, lactic acid 4.1, Mg 1.5, AST 138, ALT 134, CRP 27, BNP 3100, Pro-Emiliano 12.6, TSH 5.9, UA shows UTI. Flu positive. CXR shows extensive bilateral pneumonia. Admitted to telemetry with diagnosis of ESTELLA, pneumonia. Nephrology consulted in light of ESTELLA. 09/07: Patient moved to medical floor with son and [id number] at bedside and had a long conversation with him. Son states that patient sees Dr. Leonard outpatient, who was informed about patient will transfer care to him. BUN still significantly elevated, suspect ATN. No need for emergency dialysis and agree with holding Bumex for now. 09/08: Patient seen and examined at bedside. No acute overnight events informed patient that he will not need emergency dialysis. Denies fever, chills, abdominal pain. However, he does endorse cough and shortness of breath. Labs and medications reviewed. Exam Vital Signs Temp Pulse Resp BP Pulse Ox O2 Del Method O2 Flow Rate 97.9 F 111 H 24 H 118/79 99 Nasal Cannula 2 09/08/24 08:00 09/08/24 08:00 09/08/24 08:00 09/08/24 08:00 09/08/24 08:00 09/08/24 08:00 09/08/24 08:00 Narrative Exam General: AOx3, no acute distress, on 2 L nasal cannula HEENT: NC/AT, mucous membranes moist, bilateral sclera anicteric Cardiovascular: regular rate and rhythm, S1/S2 present, no murmurs appreciated Pulmonary: clear to auscultation bilaterally, no rales/rhonchi/wheezes noted Abdominal: soft, non-tender, non-distended, no rebound/guarding, normal bowel sounds present Musculoskeletal: normal ROM, no peripheral edema Skin: warm and dry, intact, no rashes Neuro: CN II-XII intact, no focal deficits Objective Labs 09/08/24 05:20 09/08/24 05:20 Labs: Laboratory Results - last 24 hr 09/08/24 05:20 WBC 3.5 L RBC 2.53 L Hgb 8.1 L Hct 24.2 L MCV 96 MCH 32.0 MCHC 33.5 RDW Std Deviation 66.6 H Plt Count 104 L Neut % (Auto) 70 Lymph % (Auto) 19 [place] % (Auto) 8 Eos % (Auto) 2 Baso % (Auto) 1 Neut # (Auto) 2.4 Lymph # (Auto) 0.7 L [place] # (Auto) 0.3 Eos # (Auto) 0.1 Baso # (Auto) 0.0 Immature Gran # (Auto) 0.03 H Absolute Nucleated RBC 0.00 Immature Gran % 1 H Nucleated RBC % 0 PT 13.5 H INR 1.3 Sodium 137 Potassium 4.3 Chloride 106 Carbon Dioxide 19.0 L Anion Gap 12 BUN 103 H* Creatinine 2.6 H Estim Creat Clear Calc 19.4 L eGFR 23 L BUN/Creatinine Ratio 40 H Glucose 121 H Calculated Osmolality 307 H Calcium 8.9 Corrected Calcium 9.5 Phosphorus 5.7 H Total Bilirubin 0.8 AST 226 H ALT 509 H* Alkaline Phosphatase 83 Total Protein 7.3 Albumin 3.2 L Globulin 4.1 H Albumin/Globulin Ratio 0.8 L ABG Interpretation ABG results: 09/04/24 11:10 ABG pH 7.43 ABG pCO2 27 L ABG pO2 28 L* ABG HCO3 18 L ABG O2 Saturation 48 L ABG Base Excess -6 L Quality Measures Quality Measures none Assessment & Plan Assessment Current Active Medications: Generic Name Dose Route Start Last Admin Trade Name Freq PRN Reason Stop Dose Admin Acetaminophen 650 mg 09/04/24 14:21 Acetaminophen 325 Mg Tablet PO 10/04/24 14:20 Q6H PRN pain and Fever >100.4 Protocol Hydrocodone Bitart/Acetaminophen 1 tab 09/04/24 14:21 Hydrocodone/Apap 5/325 Tablet PO 09/09/24 14:20 Q4HR PRN PAIN SCALE 4-10(Mod-Sev Albuterol/Ipratropium 3 ml 09/07/24 01:00 09/08/24 07:10 Albuterol/Ipratropium (Duoneb) Rt Chio 3 Ml Nebu INH 10/07/24 00:59 3 ml Q6HRRT PRASANTH Administration Benzonatate 100 mg 09/08/24 00:37 09/08/24 03:43 Benzonatate 100 Mg Capsule PO 10/08/24 00:36 100 mg Q8HR PRN Administration COUGH Protocol Bumetanide 2 mg 09/07/24 09:00 09/07/24 08:39 Bumetanide Inj 0.25 Mg/Ml Vial 4 Ml IVP 10/07/24 08:59 2 mg QDAY PRASANTH Administration Finasteride 5 mg 09/05/24 09:00 09/07/24 08:39 Finasteride 5 Mg Tablet PO 10/05/24 08:59 5 mg QDAY PRASANTH Administration Levofloxacin/Dextrose 750 mg in 150 mls @ 100 mls/hr 09/07/24 09:00 09/07/24 08:39 Levaquin Ivpb IV 09/14/24 08:59 100 mls/hr QOD PRASANTH Administration Lactulose 10 gm 09/07/24 21:00 09/07/24 20:51 Lactulose Syrup 20 Gm/30 Ml Udc PO 10/07/24 20:59 10 gm BID PRASANTH Administration Protocol Levothyroxine Sodium 25 mcg 09/05/24 06:00 09/08/24 05:37 Levothyroxine Sodium 25 Mcg Tablet PO 10/05/24 05:59 25 mcg ACBR PRASANTH Administration Ondansetron HCl 4 mg 09/04/24 14:21 Ondansetron Inj 2 Mg/Ml Inj 2 Ml IV 10/04/24 14:20 Q6H PRN NAUSEA OR VOMITING Protocol Oseltamivir Phosphate 30 mg 09/05/24 09:00 09/07/24 08:39 Oseltamivir 30 Mg Capsule PO 09/09/24 08:59 30 mg QDAY PRASANTH Administration Pantoprazole Sodium 40 mg 09/05/24 09:00 01/12/25 08:39 Pantoprazole 40 Mg Tablet PO 10/05/24 08:59 40 mg QDAY PRASANTH Administration Sennosides 1 tab 09/04/24 14:21 09/06/24 10:26 Senna Tablet PO 10/04/24 14:20 1 tab QDAY PRN Administration constipation Protocol
--- NOTE | 2024-09-08 09:24 | XR_ITS ---
Examination: AP chest single view TECHNIQUE: AP portable semiupright chest single view Exam date and time: September 08, 2024 0940 hours Comparison September 04, 2024 INDICATIONS: Shortness of breath chest pain this week, significant bilateral pneumonia on chest film September 04, 2024 FINDINGS: Again noted bilateral pneumonia, diffuse and significant in the left lung Mild enlargement left ventricle Stable position cardiac leads Moderate osteopenia IMPRESSION: No significant change in extensive bilateral pneumonia
--- NOTE | 2024-09-08 09:26 | EKG_ITS ---
[facility] Test Date: 2024-09-08 Pat Name: CHRISTIANE COTTRELL Department: Room: S356A Gender: Male Feather Renovator: HEIDY : 1935 Requested By: Kevin Hodge Order Number: [id number] Reading MD: Kevin Hodge Measurements Intervals [place] Rate: 98 P: [place]: QRS: -23 QRSD: 181 T: 96 QT: 404 QTc: 517 Interpretive Statements ATRIAL FIBRILLATION LEFT BUNDLE BRANCH BLOCK [120+ ms QRS DURATION, 80+ ms Q/S IN V1/V2, 85+ ms R IN I/aVL/V5/V6] Compared to ECG 09/04/2024 10:24:04 Left bundle-branch block now present Ventricular-paced complex(es) or rhythm no longer present /store/S0/[id number].pdf
--- NOTE | 2024-09-08 09:29 | PCS.ST ---
Received order for Swallow Evaluation. Pt is NPO for procedure at this time. Will follow up when appropriate.
--- NOTE | 2024-09-08 09:33 | ESPR_ITS ---
<Statement entered by Kellen Barraza MD - 09/08/24 15:46> Patient was examined bedside this morning, Dr Doe changed his Levaquin to p.o. cefuroxime. In the morning his heart rate was in the 110s ordered stat EKG showed A-fib, started the patient on p.o. amiodarone. Pending ultrasound-guided thoracocentesis. He follows Dr. Leonard outpatient so transferred care from to Dr. Leonard pending his reccs, Cr-2.6 with BUN 103. increase bun could be from possible GI bleed or from diuretics will continue to hold the Bumex pending fecal occult blood. I discussed with and supervised my co-resident involved in the care of this patient. I agree with the assessment and plan as documented above. Kellen Barraza,PGY-3 Disclaimer: Despite multiple revisions, due to the dictation software being used, the document below may not be free of grammatical errors including phonetic/typographic errors. However, this does not deter from our commitment to providing health care in the patient's best interest in mind. Documentation for date of: 09/08/24 Subjective Subjective Interval history: Patient was seen at bedside this morning. Patient's heart rate has been elevated in the 110s this morning as well as overnight and he was short of breath during assessment. Chest x-ray was ordered and reviewed no improvement or worsening of patient's pneumonia, but at that seem like he has a left pleural effusion. EKG was also ordered showed A-fib. Started the patient on amiodarone 200 twice daily, will wait for further cardiology recommendations. Patient's antibiotics were changed by infectious disease specialist to cefuroxime 250 mg twice daily. No other complaints at this time. Patient will have ultrasound- guided thoracentesis today. Exam Vital Signs Temp Pulse Resp BP Pulse Ox O2 Del Method O2 Flow Rate 97.9 F 111 H 24 H 118/79 99 Nasal Cannula 2 09/08/24 08:00 09/08/24 08:00 09/08/24 08:00 09/08/24 08:00 09/08/24 08:00 09/08/24 08:00 09/08/24 08:00 Narrative Exam General: A/O x3, ill appearing elderly male Eyes: PERRL, EOMI. anicteric, vision grossly intact. Ears: No ear pain, no ear discharge, Hearing grossly intact. Nose: No nasal discharge. Mouth/Throat: Dry mucous membranes, no redness, no lesions. Neck: Neck supple, non-tender, no cervical lymphadenopathy. Lungs: Clear SHAHEEN upper lobes and decreased sounds in L lower lobe, No accessory muscle use. Cardio: Normal S1/S2, irregular rhythm, no murmurs, no JVD Abdomen: Soft, non-tender, no palpable masses, peristalsis present, no guarding or rebound. Extremities: Symmetrical, no significant deformities, no peripheral edema, non- tender, peripheral pulses presents. Skin: No rashes, no lesions, warm to touch. Neuro: No focal neurological deficits. motor and sensory intact Psych: Cooperative, appropriate mood and effect. Objective Labs 09/09/24 05:07 09/09/24 05:07 Labs: Laboratory Results - last 24 hr 09/08/24 05:20 WBC 3.5 L RBC 2.53 L Hgb 8.1 L Hct 24.2 L MCV 96 MCH 32.0 MCHC 33.5 RDW Std Deviation 66.6 H Plt Count 104 L Neut % (Auto) 70 Lymph % (Auto) 19 [place] % (Auto) 8 Eos % (Auto) 2 Baso % (Auto) 1 Neut # (Auto) 2.4 Lymph # (Auto) 0.7 L [place] # (Auto) 0.3 Eos # (Auto) 0.1 Baso # (Auto) 0.0 Immature Gran # (Auto) 0.03 H Absolute Nucleated RBC 0.00 Immature Gran % 1 H Nucleated RBC % 0 PT 13.5 H INR 1.3 Sodium 137 Potassium 4.3 Chloride 106 Carbon Dioxide 19.0 L Anion Gap 12 BUN 103 H* Creatinine 2.6 H Estim Creat Clear Calc 19.4 L eGFR 23 L BUN/Creatinine Ratio 40 H Glucose 121 H Calculated Osmolality 307 H Calcium 8.9 Corrected Calcium 9.5 Phosphorus 5.7 H Total Bilirubin 0.8 AST 226 H ALT 509 H* Alkaline Phosphatase 83 Total Protein 7.3 Albumin 3.2 L Globulin 4.1 H Albumin/Globulin Ratio 0.8 L ABG Interpretation ABG results: 09/04/24 11:10 ABG pH 7.43 ABG pCO2 27 L ABG pO2 28 L* ABG HCO3 18 L ABG O2 Saturation 48 L ABG Base Excess -6 L Quality Measures Quality Measures none Advance care planning discussed with:: patient Assessment & Plan Assessment Current Active Medications: Generic Name Dose Route Start Last Admin Trade Name Michelle PRN Reason Stop Dose Admin Acetaminophen 650 mg 09/04/24 14:21 Acetaminophen 325 Mg Tablet PO 10/04/24 14:20 Q6H PRN pain and Fever >100.4 Protocol Hydrocodone Bitart/Acetaminophen 1 tab 09/04/24 14:21 Hydrocodone/Apap 5/325 Tablet PO 09/09/24 14:20 Q4HR PRN PAIN SCALE 4-10(Mod-Sev Albuterol/Ipratropium 3 ml 09/07/24 01:00 09/08/24 07:10 Albuterol/Ipratropium (Duoneb) Rt Chio 3 Ml Nebu INH 10/07/24 00:59 3 ml Q6HRRT PRASANTH Administration Benzonatate 100 mg 09/08/24 00:37 09/08/24 03:43 Benzonatate 100 Mg Capsule PO 10/08/24 00:36 100 mg Q8HR PRN Administration COUGH Protocol Bumetanide 2 mg 09/07/24 09:00 09/07/24 08:39 Bumetanide Inj 0.25 Mg/Ml Vial 4 Ml IVP 10/07/24 08:59 2 mg QDAY PRASANTH Administration Finasteride 5 mg 09/05/24 09:00 09/07/24 08:39 Finasteride 5 Mg Tablet PO 10/05/24 08:59 5 mg QDAY PRASANTH Administration Levofloxacin/Dextrose 750 mg in 150 mls @ 100 mls/hr 09/07/24 09:00 09/07/24 08:39 Levaquin Ivpb IV 09/14/24 08:59 100 mls/hr QOD PRASANTH Administration Lactulose 10 gm 09/07/24 21:00 09/07/24 20:51 Lactulose Syrup 20 Gm/30 Ml Udc PO 10/07/24 20:59 10 gm BID PRASANTH Administration Protocol Levothyroxine Sodium 25 mcg 09/05/24 06:00 09/08/24 05:37 Levothyroxine Sodium 25 Mcg Tablet PO 10/05/24 05:59 25 mcg ACBR PRASANTH Administration Ondansetron HCl 4 mg 09/04/24 14:21 Ondansetron Inj 2 Mg/Ml Inj 2 Ml IV 10/04/24 14:20 Q6H PRN NAUSEA OR VOMITING Protocol Oseltamivir Phosphate 30 mg 09/05/24 09:00 09/07/24 08:39 Oseltamivir 30 Mg Capsule PO 09/09/24 08:59 30 mg QDAY PRASANTH Administration Pantoprazole Sodium 40 mg 09/05/24 09:00 09/07/24 08:39 Pantoprazole 40 Mg Tablet PO 10/05/24 08:59 40 mg QDAY PRASANTH Administration Sennosides 1 tab 09/04/24 14:21 09/06/24 10:26 Senna Tablet PO 10/04/24 14:20 1 tab QDAY PRN Administration constipation Protocol Plan 89-year-old male with extensive past medical history of HFrEF (20 to 25% EF 2022), ischemic cardiomyopathy, CAD s/p CABG, MRSA bacteremia, MRSA bacteremia, defibrillator, hypertension, GERD, BPH, CKD stage IV, hypothyroidism, chronic anemia requiring multiple blood transfusion, and potential myelodysplastic syndrome was admitted to the hospital on 09/04/2024 due to acute symptomatic anemia and concerns for sepsis likely secondary to influenza pneumonia versus UTI. #A-fib, new onset ? Patient's heart rate has been in the 110s overnight and this morning ?A-fib mostly in the setting of sepsis ? EKG ordered showed A-fib ? [id number] score of 5 points, indicating 7.2% risk of stroke per year ?HAS-BLED score of 4 points, high risk of major bleeding risk Plan: ? Start amiodarone 200 mg twice daily ? Will discuss with patient and ocean transportation intermediary about starting Eliquis ? Will continue to monitor #Acute hypoxic respiratory failure likely secondary to #Concern for sepsis likely secondary to #Influenza pneumonia #S. pneumoniae bacteremia #Complicated UTI, Klebsiella pneumoniae #Left pleural effusion #Lactic acidosis, resolved #NAGMA ?Patient stated that he started having productive cough around 2 days ago as well as shortness of breath today. ?At this time patient's blood pressure has been on the lower end with a MAP around 60-70, but this may be due to acute anemia requiring blood transfusion. ? Patient was positive for influenza A - Possible MRSA pneumonia given positive blood cx with GPCs and patient's at risk given present influenza pneumonia and advance age ?Chest x-ray that showed bilateral pneumonia ? UA was positive for bacteria ? Lactic acid 4.1 on admission and down trended to 1.4 ? Procalcitonin 12.69, CRP 27.5, Bicarb 15.6 on admission -Discontinue Rocephin 1 g daily, azithromycin 500 daily, vancomycin, and levaquin. ? Blood culture grew S. pneumoniae -Urine Cx grew K. pneumoniae ?Chest x-ray 09/08/2024 did not show any improvement pneumonia or left pleural effusion Plan: ?Continue patient on oseltamavir 30 mg daily, renally dosed given patient has CKD stage IV [09/04/2024?07/10/2025] ?Continue cefuroxime 250 mg twice daily [09/08/2024-] -US thoracentesis ordered ?ID consulted, appreciate recommendations ? Will continue to monitor #Symptomatic anemia #Acute on chronic anemia #Potential myelodysplastic syndrome ?Patient states that he does feel weak and has been unable to walk in the past few days due to weakness. ?Patient states that he has required multiple multiple blood transfusions due to his chronic anemia. ? Pathology report from 2023 that showed potential myelodysplastic syndrome ? Patient does follow-up with hematology as an oncologist outpatient. ?Patient initial hemoglobin was 6.4. ?2 PRBC total transfused -Hgb today 8.1 -Folate 11.16 and Vit B12 1907 Plan: ? FOBT pending ? Bleeding precautions -Transfuse if Hgb less than 8 ? Will continue to monitor #Transaminitis ?Patient's AST 138 and ALT 134 on admission ? DDx ischemic hepatitis in the setting of hypotension versus congestive hepatopathy ? Hepatitis panel negative - Liver US showed fatty liver -AST 226 and ALT 509 today -No symptoms Plan: ? Will continue to monitor #HFrEF (15 to 20% EF 08/2023) #CAD s/p CABG #Hx of ischemic cardiomyopathy ? Patient does have some history of HFrEF with an ejection fraction of 20 to 25% on 2022 as well as having some bilateral lower extremity edema at this time. ? BNP initially was 3163 ?Patient was given 1 dose of Lasix in the ED Plan: ? Bumex on Hold ? Daily weights ? Will continue to monitor #ESTELLA on CKD stage IV #ATN vs Cardiorenal ?Patient's creatinine clearance is 21.9 and Cr 2.3 on admission -Base line Cr around 2 -Cr to 2.6 today ? Patient follows up outpatient with it admin Plan: ? Avoid nephrotoxic agents ? Renally dose medications - Consult nephrology, appreciate recommendations ? Will continue to monitor #Hx of hypothyroidism ?Patient's TSH was 5.9 ? Free T4 1.15 ? Patient has a history of hypothyroidism Plan: ? Will continue patient's levothyroxine 25 mcg p.o. #Hx of hypertension ?Patient's blood pressure has been soft therefore will hold off on any antihypertensive medication for now. #Hx of BPH ?Will continue finasteride 5 mg daily #Hx of GERD ?Continue pantoprazole Disposition: Patient pending US guided thoracentesis, A-fib new onset started amio 200mg BID. Diet: Cardiac GI prophylaxis: protonix DVT prophylaxis: SCDS in the setting of anemia Code: Full Case disclosed with Attending Dr. Bautista and My senior Dr. Barraza PGY3. Kevin Hodge PGY1 Attending Provider Attestation/Addendum I have examined the patient, reviewed labs and imaging findings, discussed the case with the resident(s), and reviewed entered orders. 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 In the emergency room patient was found to have sepsis and thus hospitalist team consulted for continuation of care. # Acute hypoxic respiratory failure: multifactorial secondary to influenza pneumonitis and superimposed bacterial pneumonia +/- pleural effusion. ABG reviewed. Continue supplemental oxygen and wean as tolerated. Overall significantly improved and requiring 2L NC. Patient will go for IR drainage of pleural effusion today. # Sepsis- Resolved # Community-acquired pneumonia # Influenza type B # Urinary tract infection # Bacteremia SIRS: 2 out of 4 SIRS criteria met qSOFA: 2 points on admission indicating increased risk for in-hospital mortality Presented with cough, shortness of breath. Most likely sources include pulmonary and UTI CXR: Bilateral pneumonia and diffuse in left lung. Pro-Emiliano 12.69 and LA 4.1 workup: Blood cultures grew Streptococcus pneumonia and urine culture grew Klebsiella pneumonia Plan: DC IV vancomycin and Zosyn. Infectious disease consulted and started on oral cefuroxime axetil 250mg PO BID. # New onset atrial fibrillation Likely secondary to severe CHF and sepsis Plan: Cardiology following. Heart rate trending in the low 100s. We will start oral amiodarone 200 mg p.o. twice daily. Patient has elevated [id number] score but given transfusion dependent anemia he is high risk for a life- threatening GI bleed. We will defer anticoagulation for now. # Symptomatic anemia # Thrombocytopenia Patient has history of frequent blood transfusions and concern for myelodysplastic syndrome Hemoglobin 6.4 on admission with MCV 102 Plan: FOBT pending, folate & vitamin B12 relatively normal. S/P 2 units PRBCs with improvement of hemoglobin to 8.0. Repeat hematology panel in am. Hold all chemical anticoagulation. 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 # Transaminitis Most likely secondary to ischemia in the setting of severe sepsis, anemia, and soft blood pressure Liver ultrasound showed absent gallbladder, 10 mm CBD with no stones and fatty liver Plan: Continue to avoid hypotension. Avoid hepatotoxic agents. Repeat LFTs in AM. # ESTELLA on CKD Baseline creatinine appears to be around 1.8. On admission creatinine 2.3 and BUN 76. ESTELLA likely secondary to prerenal azotemia in the setting of sepsis and symptomatic anemia Plan: Nephrology consulted, recommendations appreciated. Significantly elevated blood urea nitrogen to 103 although patient appears to be tolerating well. Mild hyperphosphatemia present. Hold Diuresis for now. # Chronic systolic heart failure Previous echo showed ejection fraction of 30% and does not appear to be in acute exacerbation at this time. BNP 3163 in the setting of ESTELLA Echocardiogram: Dilated ischemic cardiomyopathy with severe systolic dysfunction, EF 15 to 20% with severe right ventricular dysfunction. Plan: Patient was given fluids on admission and tachycardia pi?a present today. Hold bumex. Continue Coreg. Holding TYRON/ARB in the setting of ESTELLA. # Lactic acidosis-Resolved On admission lactic acid 4.1, most likely type A lactic acidosis secondary to sepsis Plan: Resolved. No further workup needed at this time. # Hypothyroidism Plan: Continue home levothyroxine Dr. Bautista
--- NOTE | 2024-09-08 09:35 | ESPR_ITS ---
Subjective Subjective Interval history: admitted the other day. pneumococcal bacteremia noted. on chronic tamiflu per others. reasonable suppression if not able to be vaccinated or known non responder to vaccines. is a full code as well. Exam Vital Signs Temp Pulse Resp BP Pulse Ox O2 Del Method O2 Flow Rate 97.9 F 111 H 24 H 118/79 99 Nasal Cannula 2 09/08/24 08:00 09/08/24 08:00 09/08/24 08:00 09/08/24 08:00 09/08/24 08:00 09/08/24 08:00 09/08/24 08:00 Objective - Internal Medicine Labs 09/08/24 05:20 09/08/24 05:20 Labs: Laboratory Results - last 24 hr 09/08/24 05:20 WBC 3.5 L RBC 2.53 L Hgb 8.1 L Hct 24.2 L MCV 96 MCH 32.0 MCHC 33.5 RDW Std Deviation 66.6 H Plt Count 104 L Neut % (Auto) 70 Lymph % (Auto) 19 [place] % (Auto) 8 Eos % (Auto) 2 Baso % (Auto) 1 Neut # (Auto) 2.4 Lymph # (Auto) 0.7 L [place] # (Auto) 0.3 Eos # (Auto) 0.1 Baso # (Auto) 0.0 Immature Gran # (Auto) 0.03 H Absolute Nucleated RBC 0.00 Immature Gran % 1 H Nucleated RBC % 0 PT 13.5 H INR 1.3 Sodium 137 Potassium 4.3 Chloride 106 Carbon Dioxide 19.0 L Anion Gap 12 BUN 103 H* Creatinine 2.6 H Estim Creat Clear Calc 19.4 L eGFR 23 L BUN/Creatinine Ratio 40 H Glucose 121 H Calculated Osmolality 307 H Calcium 8.9 Corrected Calcium 9.5 Phosphorus 5.7 H Total Bilirubin 0.8 AST 226 H ALT 509 H* Alkaline Phosphatase 83 Total Protein 7.3 Albumin 3.2 L Globulin 4.1 H Albumin/Globulin Ratio 0.8 L ABG Interpretation ABG results: 09/04/24 11:10 ABG pH 7.43 ABG pCO2 27 L ABG pO2 28 L* ABG HCO3 18 L ABG O2 Saturation 48 L ABG Base Excess -6 L Assessment & Plan A&P Narrative pneumococcal bacteremia. jarquin s. L pneumonia on chest imaging cytopenia, relative uti vs asb on micro changed to po cefuroxime, that is likely cheaper than full dose levaquin as the 750 dose is high for ckd and that is problematic. counts noted. other problems noted. hep c neg. will see again prn. home or to prior place of residence when you see fit he expects a pleural tap tomorrow, but cxr looks more like pneumonia to me, yumiko with pneumococcal bacteremia that has cleared Time Spent With Patient Time: Total time spent is greater than 50% in coordination of care (as documented) at patient's floor/unit and/or counseling patient:
--- NOTE | 2024-09-08 11:00 | XR_ITS ---
Examination: Ultrasound-guided left thoracentesis Ultrasound left hemithorax Ultrasound right hemithorax Exam date and time: September 08, 2024 1415 hours INDICATIONS: Difficulty breathing this week, chest x-ray September 08, 2024 left pleural fluid TECHNIQUE AND FINDINGS: Sonographic images right and left hemithoraces Significant left pleural fluid No significant right pleural fluid Informed consent provided. Timeout performed. Skin prepped over the left hemithorax and sterile drape applied maximum sterile barrier technique hand hygiene ultrasound sterile technique 1% Xylocaine administered for local anesthesia Utilizing ultrasonographic guidance successful 5 [place] catheter placement in the left hemithorax 2600 cc pleural fluid removed Estimated blood loss 0 cc IMPRESSION: Successful ultrasound-guided left thoracentesis, 2600 cc pleural fluid removed
--- NOTE | 2024-09-08 11:59 | ESCONSULT_ITS ---
RE: CHRISTIANE COTTRELL : 1935 DATE OF CONSULTATION: 09/08/2024 REFERRING PHYSICIAN: Samuel Bautista MD and Ray Gillette MD REASON FOR CONSULTATION: Chronic kidney disease, COPD, pneumonia, anemia and cytopenias. HISTORY OF PRESENT ILLNESS: The patient is an unfortunate 89-year-old man with pancytopenia that may be multifactorial. He reports a history of CHF, coronary artery disease. He has evidence of prior bypass, two pacemakers and defibrillator, so I suggested he may have some heart failure as well. He is to have some sort of pleural tap tomorrow, although not certain why . He is on some supplemental oxygen. He appears to have left-sided pneumonia. He was hospitalized readily for 2 months for treatment of MRSA bacteremia apparently found at another Hospital. ALLERGIES: NONE NOTED. IMMUNIZATIONS: Limited to information. He does not take flu shot every year. He had two COVID vaccine. He has had pneumococcal vaccine. FAMILY HISTORY: Unremarkable. SOCIAL HISTORY: He lives at home with his . He lives in a group home home in the vicinity. They apparently moved there after. He and his were both hospitalized for infections relatively recently. PHYSICAL EXAMINATION: GENERAL: The patient is in no distress. He is on some supplemental oxygen. He is able to offer history with a bit of a stutter noted. HEENT: Grossly benign. HEART: Grossly benign. LUNGS: Grossly benign. ABDOMEN: Grossly benign. He has a well-healed surgical scar on his midline and evidence of prior pacemaker placement on the left chest. It has been notably replaced, so this is a second pacemaker and he has a defibrillator as well. ASSESSMENT AND PLAN: The patient is 89 years of age and is a full code. On exam, the patient is in no distress. He is on supplemental oxygen. He has had pneumococcal bacteremia that has cleared rapidly. He had Klebsiella in his urine, although I am not certain there was urinary tract infection and did not complain of any urinary symptoms. His UA did show 300 white cells though, so he has had treatment though with Rocephin for several days. His Klebsiella is relatively sensitive, so we can use an agent for that such as cefuroxime that should be fine. He was given Levaquin, but the dose is rather high for someone with chronic kidney disease, so we need to adjust the dose to a lower dose of cefuroxime. He does not complain of any urinary symptoms. He may have more asymptomatic bacteriuria. His white count is on the low end as his hemoglobin that probably bears an outpatient evaluation by Dr. Gillette. At this point, he has probably had sufficient treatment of the urine to go to p.o. for the remainder of his treatment course. I am going to go ahead and switch him to p.o. cefuroxime for seven days and so he may go home on that in the near future. I would not repeat his sputum or other cultures further unless there is other reason to do so. DT: 10:14:00 TT: 10:40:00 Ref: [id number] - TID: [id number] MTDD
--- NOTE | 2024-09-08 14:22 | ESPR_ITS ---
<Statement entered by Henrik Sabillon MD - 09/09/24 08:39> I personally evaluated the patient along with resident physician PGY 2 Dr Haskins recommend continue medical management will hold off diuretics since the BUN has gone up to high thoracentesis was successful breathing is improved significantly long-term prognosis poor because a low ejection fraction. Clinically there is no signs of endocarditis blood cultures so far negative as well not concerned about any device infection at this time. Documentation for date of: 09/08/24 Subjective Subjective Interval history: Overnight, no acute events reported. Patient noted to be in A-fib, but rate controlled. Patient doesn't have a hx of A-fib, most likely from underlying infection. Patient's CMP also concerning for elevated BUN and Cr. Patient denies any chest pain or bleeding in urine or stool. May consider starting Eliquis outpatient, d/t elevated [id number], however there is some concern for GI bleed. Will hold patient's Bumex for tomorrow in lieu of elevated BUN. Patient continues to feel SOB and winded. Exam Vital Signs Temp Pulse Resp BP Pulse Ox O2 Del Method O2 Flow Rate 98.0 F 109 H 20 98/63 100 Nasal Cannula 2 09/08/24 12:00 09/08/24 12:48 09/08/24 12:48 09/08/24 12:00 09/08/24 12:48 09/08/24 12:00 09/08/24 12:48 Narrative Exam General Appearance: Pt in mild acute distress with nasal cannula sitting upright in bed with NC. Appears mildly anxious. Lungs: Scattered crackles in upper bases, otherwise no wheezing noted. CVS: Irregularly, irregular, S1/S2 heard, no murmurs or rubs appreciated, mild JVD noted, trace pedal edema bilaterally ABD: Soft, non-tender, non-distended, BS + in all 4 quadrants EXT: no deformity/edema/lesions/cyanosis/clubbing, radial pulses 2+ BL, DP pulses 2 + BL SKIN: Skin exam normal without any rashes. Objective Labs 09/08/24 05:20 09/08/24 05:20 Labs: Laboratory Results - last 24 hr 09/08/24 05:20 WBC 3.5 L RBC 2.53 L Hgb 8.1 L Hct 24.2 L MCV 96 MCH 32.0 MCHC 33.5 RDW Std Deviation 66.6 H Plt Count 104 L Neut % (Auto) 70 Lymph % (Auto) 19 [place] % (Auto) 8 Eos % (Auto) 2 Baso % (Auto) 1 Neut # (Auto) 2.4 Lymph # (Auto) 0.7 L [place] # (Auto) 0.3 Eos # (Auto) 0.1 Baso # (Auto) 0.0 Immature Gran # (Auto) 0.03 H Absolute Nucleated RBC 0.00 Immature Gran % 1 H Nucleated RBC % 0 PT 13.5 H INR 1.3 Sodium 137 Potassium 4.3 Chloride 106 Carbon Dioxide 19.0 L Anion Gap 12 BUN 103 H* Creatinine 2.6 H Estim Creat Clear Calc 19.4 L eGFR 23 L BUN/Creatinine Ratio 40 H Glucose 121 H Calculated Osmolality 307 H Calcium 8.9 Corrected Calcium 9.5 Phosphorus 5.7 H Total Bilirubin 0.8 AST 226 H ALT 509 H* Alkaline Phosphatase 83 Total Protein 7.3 Albumin 3.2 L Globulin 4.1 H Albumin/Globulin Ratio 0.8 L ABG Interpretation ABG results: 09/04/24 11:10 ABG pH 7.43 ABG pCO2 27 L ABG pO2 28 L* ABG HCO3 18 L ABG O2 Saturation 48 L ABG Base Excess -6 L Quality Measures Quality Measures none Advance care planning discussed with:: patient Assessment & Plan Assessment Current Active Medications: Generic Name Dose Route Start Last Admin Trade Name Freq PRN Reason Stop Dose Admin Acetaminophen 650 mg 09/04/24 14:21 Acetaminophen 325 Mg Tablet PO 10/04/24 14:20 Q6H PRN pain and Fever >100.4 Protocol Hydrocodone Bitart/Acetaminophen 1 tab 09/04/24 14:21 Hydrocodone/Apap 5/325 Tablet PO 09/09/24 14:20 Q4HR PRN PAIN SCALE 4-10(Mod-Sev Albuterol/Ipratropium 3 ml 09/07/24 01:00 09/08/24 12:48 Albuterol/Ipratropium (Duoneb) Rt Chio 3 Ml Nebu INH 10/07/24 00:59 3 ml Q6HRRT PRASANTH Administration Amiodarone HCl 200 mg 09/08/24 10:15 Amiodarone Hcl 200 Mg Tablet PO 10/08/24 10:14 BID PRASANTH Benzonatate 100 mg 09/08/24 00:37 09/08/24 03:43 Benzonatate 100 Mg Capsule PO 10/08/24 00:36 100 mg Q8HR PRN Administration COUGH Protocol Bumetanide 2 mg 09/07/24 09:00 09/07/24 08:39 Bumetanide Inj 0.25 Mg/Ml Vial 4 Ml IVP 10/07/24 08:59 2 mg QDAY PRASANTH Administration Cefuroxime Axetil 250 mg 09/08/24 21:00 Cefuroxime Axetil 250 Mg Tablet PO 09/15/24 20:59 BID PRASANTH Finasteride 5 mg 09/05/24 09:00 09/07/24 08:39 Finasteride 5 Mg Tablet PO 10/05/24 08:59 5 mg QDAY PRASANTH Administration Lactulose 10 gm 09/07/24 21:00 09/07/24 20:51 Lactulose Syrup 20 Gm/30 Ml Udc PO 10/07/24 20:59 10 gm BID PRASANTH Administration Protocol Levothyroxine Sodium 25 mcg 09/05/24 06:00 09/08/24 05:37 Levothyroxine Sodium 25 Mcg Tablet PO 10/05/24 05:59 25 mcg ACBR PRASANTH Administration Ondansetron HCl 4 mg 09/04/24 14:21 Ondansetron Inj 2 Mg/Ml Inj 2 Ml IV 10/04/24 14:20 Q6H PRN NAUSEA OR VOMITING Protocol Oseltamivir Phosphate 30 mg 09/05/24 09:00 09/07/24 08:39 Oseltamivir 30 Mg Capsule PO 09/09/24 08:59 30 mg QDAY PRASANTH Administration Pantoprazole Sodium 40 mg 09/05/24 09:00 09/07/24 08:39 Pantoprazole 40 Mg Tablet PO 10/05/24 08:59 40 mg QDAY PRASANTH Administration Sennosides 1 tab 09/08/24 10:30 Senna Tablet PO 10/08/24 10:29 QDAY PRASANTH Protocol Plan Patient is an 89-year-old male with past medical history of CAD, CABG, HFrEF with EF 20% s/p LIQUEFACTION SUPERVISOR-D, ischemic cardiomyopathy, MRSA bacteremia, hypertension, GERD, BPH, CKD stage IV, hypothyroidism, and chronic anemia requiring multiple blood transfusion, who presented to the ED with cough, shortness of breath, and chest pain. Patient is well-known by Dr. Sabillon and cardiology was consulted due to extensive cardiac history. 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 -Cardiology will follow patient closely appreciate the consult. -Will hold Bumex for tomorrow # Acute hypoxic respiratory failure # Sepsis # Community-acquired pneumonia # Influenza pneumonia # Urinary tract infection # Bacteremia # Symptomatic anemia # Thrombocytopenia # Transaminitis # ESTELLA on CKD # Chronic systolic heart failure # Lactic acidosis-Resolved # Hypothyroidism Continue management per primary Case discussed with attending day spa manager Dr. Ridge Haskins, PGY-2
--- NOTE | 2024-09-08 14:23 | PCS.ST ---
Swallow Evaluation completed, limited as pt leaving for ultrasound. Will see again in AM. See report for details. Pt demonstrating s/s of laryngeal penetration with thin liquids today. Recommend MT2 liquids for now.
--- NOTE | 2024-09-08 14:32 | XR_ITS ---
Examination: AP chest single view TECHNIQUE: AP semiupright portable chest single view Exam date and time: September 08, 2024 at 4 hours Comparison September 08, 2024 0940 hours INDICATIONS: Post left thoracentesis. FINDINGS: No pneumothorax post left thoracentesis Enlarged left ventricle again noted with bilateral pneumonia IMPRESSION: No pneumothorax post left thoracentesis
[2024-09-08] MEDS: OSELTAMIVIR 30 MG CAPSULE PO (15:47)
[2024-09-08] MEDS: PANTOPRAZOLE 40 MG TABLET PO (15:47)
[2024-09-08] MEDS: LACTULOSE SYRUP 20 GM/30 ML UDC 10 GM PO ×2 (15:47→20:05)
[2024-09-08] MEDS: AMIODARONE HCL 200 MG TABLET PO ×2 (15:47→21:56)
[2024-09-08] MEDS: SENNA TABLET 1 TAB PO (15:47)
[2024-09-08] MEDS: FINASTERIDE 5 MG TABLET PO (15:47)
[2024-09-08 16:56] LABS: Pleural Fluid WBC 2183 /cmm
[2024-09-08 17:07] LABS: Pleural Fluid Appearance Hazy; Pleural Fluid Color Yellow; Pleural Fluid RBC 2000 /cmm
[2024-09-08 18:01] LABS: Amylase,Pleural Fluid 27 IU/L; Glucose,Pleural Fluid 94 mg/dL; LDH,Pleural Fluid 389 IU/L; Protein Total,Pleural Fluid 3.4 g/dL
[2024-09-08] MEDS: cefuroxime axetiL 250 MG TABLET PO (20:05)
[2024-09-08] MEDS: METOPROLOL SUCCINATE XL 25 MG TABCR 50 MG PO (22:13)
[2024-09-09] VITALS (13 sets, daily range): BP systolic 100–110; BP diastolic 60–82; PULSE 80–113; RESP 15–94; TEMP 36.3–36.9; O2SAT 94–100
[2024-09-09] MEDS: ALBUTEROL/IPRATROPIUM (Duoneb) RT SOL 3 ML NEBU INH ×4 (00:17→18:00)
[2024-09-09 00:21] LABS: OBS Card Lot # 22002; OBS QC OK? Yes; Occult Blood, Stool Negative (Negative)
[2024-09-09 00:22] LABS: OBS Developer Lot # 23002; OBS Performed By lopea5
[2024-09-09] MEDS: LEVOTHYROXINE SODIUM 25 MCG TABLET PO (05:12)
[2024-09-09 05:51] LABS: Basophils % (Auto) 1 % (0-2.5); Eosinophils # (Auto) 0.1 Thou/mm3 (0.0-0.5); Eosinophils % (Auto) 2 % (0-10); Hematocrit 25.9 % (41.0-53.0); Immature Granulocytes % (Auto) 1 % (0-0); Immature Granulocytes Auto 0.04 Thou/mm3 (0.00-0.00); Lymphocytes # (Auto) 0.7 Thou/mm3 (1.0-4.8); Lymphocytes % (Auto) 18 % (10-50); Mean Corpuscular HGB Conc 33.2 g/dl (31.0-37.0); Mean Corpuscular Hemoglobin 31.9 pg (25.0-35.0); Mean Corpuscular Volume 96 fL (80-100); Monocytes # (Auto) 0.2 Thou/mm3 (0.0-0.8); Monocytes % (Auto) 5 % (0-12); Neutrophils # (Auto) 2.7 Thou/mm3 (1.8-7.7); Neutrophils % (Auto) 74 % (37-80); Nucleated Red Blood Cell % 0 /100 WBC (0); Platelet Count 111 Thou/mm3 (140-440); RDW Standard Deviation 67.8 fL (35.1-43.9); White Blood Count 3.7 Thou/mm3 (3.8-10.6)
[2024-09-09 06:06] LABS: Hemoglobin 8.6 g/dL (13.5-16.0)
[2024-09-09 06:21] LABS: Alanine Aminotransferase 398 U/L (10-49); Albumin, Serum 3.3 gm/dL (3.4-4.8); Albumin/Globulin Ratio 0.8 (1.2-2.2); Alkaline Phosphatase 83 U/L (46-116); Anion Gap 12 (7-16); Aspartate Amino Transferase 125 U/L (0-34); BUN/Creatinine Ratio 39 Ratio (12-20); Bilirubin,Total 0.8 mg/dL (0.3-1.2); Blood Urea Nitrogen 90 mg/dL (9-23); Calcium 9.3 mg/dL (8.3-10.6); Calcium (Corrected) 9.9 mg/dL (8.5-10.1); Carbon Dioxide 17.5 mMol/L (20.0-31.0); Chloride 108 mMol/L (98-107); Creatinine (Component) 2.3 mg/dL (0.6-1.3); Estimated Creatinine Clearance 21.9 mL/min (>60); Globulin 4.1 gm/dL (2.3-3.5); Glucose 117 mg/dL (74-106); Osmolality,Calculated 302 (275-295); Potassium 4.6 mMol/L (3.4-5.1); Sodium 137 mMol/L (136-145); Total Protein 7.4 gm/dL (5.7-8.2); eGFR 27 See Note
[2024-09-09] MEDS: FINASTERIDE 5 MG TABLET PO (08:48)
[2024-09-09] MEDS: SENNA TABLET 1 TAB PO (08:48)
[2024-09-09] MEDS: METOPROLOL SUCCINATE XL 25 MG TABCR 50 MG PO ×2 (08:48→09:58)
[2024-09-09] MEDS: AMIODARONE HCL 200 MG TABLET PO ×2 (08:48→20:31)
[2024-09-09] MEDS: PANTOPRAZOLE 40 MG TABLET PO (08:48)
[2024-09-09] MEDS: LACTULOSE SYRUP 20 GM/30 ML UDC 10 GM PO ×2 (08:49→20:31)
[2024-09-09 08:53] LABS: Magnesium 2.3 mg/dL (1.6-2.6); Phosphorous 5.3 mg/dL (2.4-5.1)
--- NOTE | 2024-09-09 09:47 | PC.NURSE ---
Verified with Dr. Williamson one time order for PO metoprolol and Bumex. per Dr. Williamson yes give this dose now, even after AM dose. we need to get pt. HR down. Soft BP is okay for this patient.
[2024-09-09] MEDS: BUMETANIDE INJ 0.25 MG/ML VIAL 4 ML 0.5 MG IVP (09:58)
--- NOTE | 2024-09-09 11:03 | XR_ITS ---
Examination: CT chest, without intravenous contrast. Sagittal and coronal 2-D reconstructions. Exam date and time: September 09, 2024 1210 hours Comparison August 15, 2023 INDICATIONS: Flu symptoms shortness of breath coughing congestion today CTDI:vol (mGy) 11.3 DLP: (mGycm) 429 Technique: Multiple 3.0 mm axial sections of the chest to been obtained. Bone and lung density settings are obtained. Sagittal and coronal 2-D reconstructions have been obtained. Low dose protocols were performed. One or more of the following dose reduction techniques were used; automated exposure control, adjustment of the mA and/or KV according to patient size, use of iterative reconstruction technique. Findings: Bilateral thyromegaly with calcified subcentimeter left thyroid nodules Thoracic aortic calcification no aneurysmal dilatation Main pulmonary artery segment measures 39 mm Very heavy calcification left main left anterior descending left circumflex right coronary arteries Moderate enlargement cardiac contour Bilateral lung opacity consistent with pneumonia, severe at both lung bases Moderate vascular congestion Infiltrate is also present in the left upper lobe No focal liver or splenic lesion Absent gallbladder No pancreatic or adrenal mass Kidneys partially visualized with perinephric stranding IMPRESSION: Bilateral pneumonia, severe at the lung bases Moderate enlargement cardiac contour Very heavy coronary artery calcification
--- NOTE | 2024-09-09 11:28 | PC.SS ---
Addendum entered by Caitlin Werner 09/09/24 15:16: SS followed up with PT who recommends short stay at SNF. However, patient refused. Patient is max assist. SS spoke to patient's son, Dustin Schwartz. He states patient's is here on tele as well. They live at [facility] [place] and if patient cannot ambulate he cannot return to [facility] [place]. SS will send off inquiry through [employer]. Patient's son will be speaking to patient. Patient's son will assist in all medical decisions for both patients. Original Note: Follow up note: Patient is pending a PT eval. and recommendations. Patient currently has a careprovider that checks in with patient 3 x daily. Patient initial d/c plan was to return home with Agustina MARINA. Patient is on droplet precautions due to influenza.
--- NOTE | 2024-09-09 13:06 | ESPR_ITS ---
<Statement entered by Kellen Barraza MD - 09/09/24 14:21> Patient was examined bedside this morning, 2.6L of fluid was taken out during thoracocentesis yesterday. Pleural fluid showed exudative by lights criteria. Changed his antibiotic to ceftriaxone from cefuroxime. Will continue amiodarone and metoprolol for A-fib. Will continue to monitor I discussed with and supervised my co-resident involved in the care of this patient. I agree with the assessment and plan as documented above. Kellen Barraza,PGY-3 Disclaimer: Despite multiple revisions, due to the dictation software being used, the document below may not be free of grammatical errors including phonetic/typographic errors. However, this does not deter from our commitment to providing health care in the patient's best interest in mind. Documentation for date of: 09/09/24 Subjective Subjective Interval history: Patient seen at bedside this morning. No overnight events. Patient had a total of 2.6 L taken out yesterday by thoracentesis. He was feeling a lot better and was breathing a lot easier. There is still decreased breath sounds on the left lower lobe therefore we will order a chest CT to rule out any loculation or lung entrapment. FOBT was negative and patient's hemoglobin is stable at 8.6. Pleural fluid serology did showed that the fluid was exudative by lights criteria. Given this patient's antibiotics were switched from cefuroxime to ceftriaxone 2 g daily. Patient appears to be still in A-fib but rate controlled and will continue with amiodarone 200 twice daily and metoprolol 50 mg daily. Will continue to hold off on diuresis for now as patient's kidney function is mildly improved. Patient's liver function continues to improve. No other complaints at this time. Exam Vital Signs Temp Pulse Resp BP Pulse Ox O2 Del Method O2 Flow Rate 98.4 F 105 H 24 H 106/82 96 Nasal Cannula 1 09/09/24 08:00 09/09/24 09:58 09/09/24 08:00 09/09/24 09:58 09/09/24 08:00 09/09/24 08:00 09/09/24 07:21 Narrative Exam General: A/O x3, ill appearing elderly male Eyes: PERRL, EOMI. anicteric, vision grossly intact. Ears: No ear pain, no ear discharge, Hearing grossly intact. Nose: No nasal discharge. Mouth/Throat: Dry mucous membranes, no redness, no lesions. Neck: Neck supple, non-tender, no cervical lymphadenopathy. Lungs: Clear SHAHEEN upper lobes and still decreased sounds in L lower lobe, No accessory muscle use. Cardio: Normal S1/S2, irregular rhythm, no murmurs, no JVD Abdomen: Soft, non-tender, no palpable masses, peristalsis present, no guarding or rebound. Extremities: Symmetrical, no significant deformities, no peripheral edema, non- tender, peripheral pulses presents. Skin: No rashes, no lesions, warm to touch. Neuro: No focal neurological deficits. motor and sensory intact Psych: Cooperative, appropriate mood and effect. Objective Labs 09/12/24 04:20 09/12/24 04:20 Labs: Laboratory Results - last 24 hr 09/08/24 09/08/24 09/09/24 14:15 22:21 05:07 WBC 3.7 L RBC 2.70 L Hgb 8.6 L Hct 25.9 L MCV 96 MCH 31.9 MCHC 33.2 RDW Std Deviation 67.8 H Plt Count 111 L Neut % (Auto) 74 Lymph % (Auto) 18 [place] % (Auto) 5 Eos % (Auto) 2 Baso % (Auto) 1 Neut # (Auto) 2.7 Lymph # (Auto) 0.7 L [place] # (Auto) 0.2 Eos # (Auto) 0.1 Baso # (Auto) 0.0 Immature Gran # (Auto) 0.04 H Absolute Nucleated RBC 0.00 Immature Gran % 1 H Nucleated RBC % 0 Sodium 137 Potassium 4.6 Chloride 108 H Carbon Dioxide 17.5 L Anion Gap 12 BUN 90 H Creatinine 2.3 H Estim Creat Clear Calc 21.9 L eGFR 27 L BUN/Creatinine Ratio 39 H Glucose 117 H Calculated Osmolality 302 H Calcium 9.3 Corrected Calcium 9.9 Phosphorus 5.3 H Magnesium 2.3 Total Bilirubin 0.8 AST 125 H ALT 398 H Alkaline Phosphatase 83 Total Protein 7.4 Albumin 3.3 L Globulin 4.1 H Albumin/Globulin Ratio 0.8 L Pleural Color Yellow Pleural Appearance Hazy Pleural WBC 2183 Pleural RBC 2000 Pleural Polynuclear WBC 59.0 Pleural Mononuclear WBC 41.0 Pleural Total Protein 3.4 Pleural LDH 389 Pleural Glucose 94 Pleural Amylase 27 Stool Occult Blood Negative ABG Interpretation ABG results: 09/04/24 11:10 ABG pH 7.43 ABG pCO2 27 L ABG pO2 28 L* ABG HCO3 18 L ABG O2 Saturation 48 L ABG Base Excess -6 L Quality Measures Quality Measures none Advance care planning discussed with:: patient Assessment & Plan Assessment Current Active Medications: Generic Name Dose Route Start Last Admin Trade Name Freq PRN Reason Stop Dose Admin Acetaminophen 650 mg 09/04/24 14:21 Acetaminophen 325 Mg Tablet PO 10/04/24 14:20 Q6H PRN pain and Fever >100.4 Protocol Hydrocodone Bitart/Acetaminophen 1 tab 09/04/24 14:21 Hydrocodone/Apap 5/325 Tablet PO 09/09/24 14:20 Q4HR PRN PAIN SCALE 4-10(Mod-Sev Albuterol/Ipratropium 3 ml 09/07/24 01:00 09/09/24 13:05 Albuterol/Ipratropium (Duoneb) Rt Chio 3 Ml Nebu INH 10/07/24 00:59 3 ml Q6HRRT PRASANTH Administration Amiodarone HCl 200 mg 09/08/24 10:15 09/09/24 08:48 Amiodarone Hcl 200 Mg Tablet PO 10/08/24 10:14 200 mg BID PRASANTH Administration Benzonatate 100 mg 09/08/24 00:37 09/08/24 15:47 Benzonatate 100 Mg Capsule PO 10/08/24 00:36 100 mg Q8HR PRN Administration COUGH Protocol Bumetanide 2 mg 09/07/24 09:00 09/07/24 08:39 Bumetanide Inj 0.25 Mg/Ml Vial 4 Ml IVP 10/07/24 08:59 2 mg QDAY PRASANTH Administration Finasteride 5 mg 09/05/24 09:00 09/09/24 08:48 Finasteride 5 Mg Tablet PO 10/05/24 08:59 5 mg QDAY PRASANTH Administration Ceftriaxone Sodium 2 gm/ 50 mls @ 100 mls/hr 09/09/24 08:30 09/09/24 08:49 Sodium Chloride IV 09/16/24 08:29 100 mls/hr QDAY@0830 PRASANTH Administration Lactulose 10 gm 09/07/24 21:00 09/09/24 08:49 Lactulose Syrup 20 Gm/30 Ml Udc PO 10/07/24 20:59 10 gm BID PRASANTH Administration Protocol Levothyroxine Sodium 25 mcg 09/05/24 06:00 09/09/24 05:12 Levothyroxine Sodium 25 Mcg Tablet PO 10/05/24 05:59 25 mcg ACBR PRASANTH Administration Metoprolol Succinate 50 mg 09/10/24 09:00 Metoprolol Succinate Xl 25 Mg Tabcr PO 10/10/24 08:59 QDAY PRASANTH Ondansetron HCl 4 mg 09/04/24 14:21 Ondansetron Inj 2 Mg/Ml Inj 2 Ml IV 10/04/24 14:20 Q6H PRN NAUSEA OR VOMITING Protocol Pantoprazole Sodium 40 mg 09/05/24 09:00 09/09/24 08:48 Pantoprazole 40 Mg Tablet PO 10/05/24 08:59 40 mg QDAY PRASANTH Administration Sennosides 1 tab 09/08/24 10:30 09/09/24 08:48 Senna Tablet PO 10/08/24 10:29 1 tab QDAY PRASANTH Administration Protocol Plan 89-year-old male with extensive past medical history of HFrEF (20 to 25% EF 2022), ischemic cardiomyopathy, CAD s/p CABG, MRSA bacteremia, MRSA bacteremia, defibrillator, hypertension, GERD, BPH, CKD stage IV, hypothyroidism, chronic anemia requiring multiple blood transfusion, and potential myelodysplastic syndrome was admitted to the hospital on 09/04/2024 due to acute symptomatic anemia and concerns for sepsis likely secondary to influenza pneumonia versus UTI. #A-fib, new onset ? Patient's heart rate has been in the 110s overnight and this morning ?A-fib mostly in the setting of sepsis ? EKG ordered showed A-fib ? [id number] score of 5 points, indicating 7.2% risk of stroke per year ?HAS-BLED score of 4 points, high risk of major bleeding risk Plan: ? Continue amiodarone 200 mg twice daily -Started metoprolol XL 50mg qday ? Will discuss with patient and delivery specialist about starting Eliquis ? Will continue to monitor #Acute hypoxic respiratory failure likely secondary to #Concern for sepsis likely secondary to #Influenza pneumonia #S. pneumoniae bacteremia #Complicated UTI, Klebsiella pneumoniae #Left pleural effusion, exudative #Lactic acidosis, resolved #NAGMA ?Patient stated that he started having productive cough around 2 days ago as well as shortness of breath today. ?At this time patient's blood pressure has been on the lower end with a MAP around 60-70, but this may be due to acute anemia requiring blood transfusion. ? Patient was positive for influenza A - Possible MRSA pneumonia given positive blood cx with GPCs and patient's at risk given present influenza pneumonia and advance age ?Chest x-ray that showed bilateral pneumonia ? UA was positive for bacteria ? Lactic acid 4.1 on admission and down trended to 1.4 ? Procalcitonin 12.69, CRP 27.5, Bicarb 15.6 on admission -Discontinue Rocephin 1 g daily, azithromycin 500 daily, vancomycin, and levaquin. ? Blood culture grew S. pneumoniae -Urine Cx grew K. pneumoniae ?Chest x-ray 09/08/2024 did not show any improvement pneumonia or left pleural effusion - Pleural fluid serology did showed that the fluid was exudative by lights criteria - Total of 2.6 L taken out yesterday by thoracentesis. ?Discontinue cefuroxime 250 mg twice daily [09/08/2024] Plan: ?Finished oseltamavir 30 mg daily, renally dosed given patient has CKD stage IV [09/04/2024?07/10/2025] -Started ceftriaxone 2g IV qday [09/09/2024-] -Pending pleural culture and cytology ?ID consulted, appreciate recommendations ? Will continue to monitor #Symptomatic anemia #Acute on chronic anemia #Potential myelodysplastic syndrome ?Patient states that he does feel weak and has been unable to walk in the past few days due to weakness. ?Patient states that he has required multiple multiple blood transfusions due to his chronic anemia. ? Pathology report from 2023 that showed potential myelodysplastic syndrome ? Patient does follow-up with hematology as an oncologist outpatient. ?Patient initial hemoglobin was 6.4. ?2 PRBC total transfused -Hgb today 8.6 -Folate 11.16 and Vit B12 1907 ? FOBT negative Plan: ? Bleeding precautions -Transfuse if Hgb less than 8 ? Will continue to monitor #Transaminitis ?Patient's AST 138 and ALT 134 on admission ? DDx ischemic hepatitis in the setting of hypotension versus congestive hepatopathy ? Hepatitis panel negative - Liver US showed fatty liver -AST 125 and ALT 398 today -No symptoms Plan: ? Will continue to monitor #HFrEF (15 to 20% EF 08/2023) #CAD s/p CABG #Hx of ischemic cardiomyopathy ? Patient does have some history of HFrEF with an ejection fraction of 20 to 25% on 2022 as well as having some bilateral lower extremity edema at this time. ? BNP initially was 3163 ?Patient was given 1 dose of Lasix in the ED Plan: ? Bumex on Hold ? Daily weights ? Will continue to monitor #ESTELLA on CKD stage IV #ATN vs Cardiorenal ?Patient's creatinine clearance is 21.9 and Cr 2.3 on admission -Base line Cr around 2 -Cr to 2.3 today ? Patient follows up outpatient with consumer services consultant Plan: ? Avoid nephrotoxic agents ? Renally dose medications - Consult nephrology, appreciate recommendations ? Will continue to monitor #Hx of hypothyroidism ?Patient's TSH was 5.9 ? Free T4 1.15 ? Patient has a history of hypothyroidism Plan: ? Will continue patient's levothyroxine 25 mcg p.o. #Hx of hypertension ?Patient's blood pressure has been soft therefore will hold off on any antihypertensive medication for now. #Hx of BPH ?Will continue finasteride 5 mg daily #Hx of GERD ?Continue pantoprazole Disposition: Patient A-fib new onset continue amio 200mg BID and metoprolol 50mg qday, Abx swtiched to rocephin 2g IV qday for exudative pleural effusion. Diet: Cardiac GI prophylaxis: protonix DVT prophylaxis: SCDS in the setting of anemia Code: Full Case disclosed with Attending Dr. Bautista and My senior Dr. Barraza PGY3. Kevin Hodge PGY1 Attending Provider Attestation/Addendum I have examined the patient, reviewed labs and imaging findings, discussed the case with the resident(s), and reviewed entered orders. 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 In the emergency room patient was found to have sepsis and thus hospitalist team consulted for continuation of care. # Acute hypoxic respiratory failure: multifactorial secondary to influenza pneumonitis and superimposed bacterial pneumonia +/- pleural effusion. ABG reviewed. Continue supplemental oxygen and wean as tolerated. Overall significantly improved and requiring 2L NC. Patient will go for IR drainage of pleural effusion today. # Sepsis- Resolved # Community-acquired pneumonia # Influenza type B # Urinary tract infection # Bacteremia SIRS: 2 out of 4 SIRS criteria met qSOFA: 2 points on admission indicating increased risk for in-hospital mortality Presented with cough, shortness of breath. Most likely sources include pulmonary and UTI CXR: Bilateral pneumonia and diffuse in left lung. Pro-Emiliano 12.69 and LA 4.1 workup: Blood cultures grew Streptococcus pneumonia and urine culture grew Klebsiella pneumonia Plan: DC IV vancomycin and Zosyn. Infectious disease consulted and started on oral cefuroxime axetil 250mg PO BID. # New onset atrial fibrillation Likely secondary to severe CHF and sepsis Plan: Cardiology following. Heart rate trending in the low 100s. Continue oral amiodarone 200 mg p.o. twice daily. Patient has elevated [id number] score but given transfusion dependent anemia he is high risk for a life-threatening GI bleed. We will defer anticoagulation for now. Patient started on metoprolol for further rate control- monitor DENISHA closely. # Symptomatic anemia # Thrombocytopenia Patient has history of frequent blood transfusions and concern for myelodysplastic syndrome Hemoglobin 6.4 on admission with MCV 102 Plan: FOBT pending, folate & vitamin B12 relatively normal. S/P 2 units PRBCs with improvement of hemoglobin to 8.0. Repeat hematology panel in am. Hold all chemical anticoagulation. Patient will need close outpatient follow-up with his regulatory product manager/oncologist. # Transaminitis Most likely secondary to ischemia in the setting of severe sepsis, anemia, and soft blood pressure Liver ultrasound showed absent gallbladder, 10 mm CBD with no stones and fatty liver Plan: Continue to avoid hypotension. Avoid hepatotoxic agents. Repeat LFTs in AM. # ESTELLA on CKD Baseline creatinine appears to be around 1.8. On admission creatinine 2.3 and BUN 76. ESTELLA likely secondary to prerenal azotemia in the setting of sepsis and symptomatic anemia Plan: Nephrology consulted, recommendations appreciated. Significantly elevated blood urea nitrogen to 103 although patient appears to be tolerating well. Mild hyperphosphatemia present. Hold Diuresis for now. # Chronic systolic heart failure Previous echo showed ejection fraction of 30% and does not appear to be in acute exacerbation at this time. BNP 3163 in the setting of ESTELLA Echocardiogram: Dilated ischemic cardiomyopathy with severe systolic dysfunction, EF 15 to 20% with severe right ventricular dysfunction. Plan: Patient was given fluids on admission and tachycardia pi?a present today. Hold bumex. Continue Coreg. Holding TYRON/ARB in the setting of ESTELLA. # Lactic acidosis-Resolved On admission lactic acid 4.1, most likely type A lactic acidosis secondary to sepsis Plan: Resolved. No further workup needed at this time. # Hypothyroidism Plan: Continue home levothyroxine Dr. Bautista
--- NOTE | 2024-09-09 16:30 | ESPR_ITS ---
<Statement entered by Henrik Sabillon MD - 09/11/24 11:33> I personally examined the patient evaluated the patient appears to be clinically doing better appears to be clinically dry hold on diuretics for now continue rest of medications I reviewed all essential components and agree with the treatment plan recommendations as documented by Dr Haskins PGY 2 will continue to monitor the patient Documentation for date of: 09/09/24 Subjective Subjective Interval history: Overnight, no acute events reported. Patient seen sleeping at bedside. Patient states that shortness of breath has improved. Patient had a total of 2.6 L taken out via thoracentesis. Primary team pending CT chest for possible loculation. Patient's labs show some decrease in Cr and BUN. Will continue to hold IV diuretics. Exam Vital Signs Temp Pulse Resp BP Pulse Ox O2 Del Method O2 Flow Rate 97.4 F 92 20 100/63 100 Nasal Cannula 1 09/09/24 12:00 09/09/24 13:07 09/09/24 13:07 09/09/24 12:00 09/09/24 13:07 09/09/24 12:00 09/09/24 13:07 Narrative Exam General Appearance: Pt in mild acute distress with nasal cannula sitting upright in bed. Lungs: Scattered crackles in lower bases, otherwise no wheezing noted. CVS: Irregularly, irregular, S1/S2 heard, no murmurs or rubs appreciated, mild JVD noted, trace pedal edema bilaterally ABD: Soft, non-tender, non-distended, BS + in all 4 quadrants EXT: no deformity/edema/lesions/cyanosis/clubbing, radial pulses 2+ BL, DP pulses 2 + BL SKIN: Skin exam normal without any rashes. Objective Labs 09/09/24 05:07 09/09/24 05:07 Labs: Laboratory Results - last 24 hr 09/08/24 09/08/24 09/09/24 14:15 22:21 05:07 WBC 3.7 L RBC 2.70 L Hgb 8.6 L Hct 25.9 L MCV 96 MCH 31.9 MCHC 33.2 RDW Std Deviation 67.8 H Plt Count 111 L Neut % (Auto) 74 Lymph % (Auto) 18 [place] % (Auto) 5 Eos % (Auto) 2 Baso % (Auto) 1 Neut # (Auto) 2.7 Lymph # (Auto) 0.7 L [place] # (Auto) 0.2 Eos # (Auto) 0.1 Baso # (Auto) 0.0 Immature Gran # (Auto) 0.04 H Absolute Nucleated RBC 0.00 Immature Gran % 1 H Nucleated RBC % 0 Sodium 137 Potassium 4.6 Chloride 108 H Carbon Dioxide 17.5 L Anion Gap 12 BUN 90 H Creatinine 2.3 H Estim Creat Clear Calc 21.9 L eGFR 27 L BUN/Creatinine Ratio 39 H Glucose 117 H Calculated Osmolality 302 H Calcium 9.3 Corrected Calcium 9.9 Phosphorus 5.3 H Magnesium 2.3 Total Bilirubin 0.8 AST 125 H ALT 398 H Alkaline Phosphatase 83 Total Protein 7.4 Albumin 3.3 L Globulin 4.1 H Albumin/Globulin Ratio 0.8 L Pleural Color Yellow Pleural Appearance Hazy Pleural WBC 2183 Pleural RBC 2000 Pleural Polynuclear WBC 59.0 Pleural Mononuclear WBC 41.0 Pleural Total Protein 3.4 Pleural LDH 389 Pleural Glucose 94 Pleural Amylase 27 Stool Occult Blood Negative ABG Interpretation ABG results: 09/04/24 11:10 ABG pH 7.43 ABG pCO2 27 L ABG pO2 28 L* ABG HCO3 18 L ABG O2 Saturation 48 L ABG Base Excess -6 L Quality Measures Quality Measures none Advance care planning discussed with:: patient Assessment & Plan Assessment Current Active Medications: Generic Name Dose Route Start Last Admin Trade Name Freq PRN Reason Stop Dose Admin Acetaminophen 650 mg 09/04/24 14:21 Acetaminophen 325 Mg Tablet PO 10/04/24 14:20 Q6H PRN pain and Fever >100.4 Protocol Albuterol/Ipratropium 3 ml 09/07/24 01:00 09/09/24 13:05 Albuterol/Ipratropium (Duoneb) Rt Chio 3 Ml Nebu INH 10/07/24 00:59 3 ml Q6HRRT PRASANTH Administration Amiodarone HCl 200 mg 09/08/24 10:15 09/09/24 08:48 Amiodarone Hcl 200 Mg Tablet PO 10/08/24 10:14 200 mg BID PRASANTH Administration Benzonatate 100 mg 09/08/24 00:37 09/08/24 15:47 Benzonatate 100 Mg Capsule PO 10/08/24 00:36 100 mg Q8HR PRN Administration COUGH Protocol Bumetanide 2 mg 09/07/24 09:00 09/07/24 08:39 Bumetanide Inj 0.25 Mg/Ml Vial 4 Ml IVP 10/07/24 08:59 2 mg QDAY PRASANTH Administration Finasteride 5 mg 09/05/24 09:00 09/09/24 08:48 Finasteride 5 Mg Tablet PO 10/05/24 08:59 5 mg QDAY PRASANTH Administration Ceftriaxone Sodium 2 gm/ 50 mls @ 100 mls/hr 09/09/24 08:30 09/09/24 08:49 Sodium Chloride IV 09/16/24 08:29 100 mls/hr QDAY@0830 PRASANTH Administration Lactulose 10 gm 09/07/24 21:00 09/09/24 08:49 Lactulose Syrup 20 Gm/30 Ml Udc PO 10/07/24 20:59 10 gm BID PRASANTH Administration Protocol Levothyroxine Sodium 25 mcg 09/05/24 06:00 09/09/24 05:12 Levothyroxine Sodium 25 Mcg Tablet PO 10/05/24 05:59 25 mcg ACBR PRASANTH Administration Metoprolol Succinate 50 mg 09/10/24 09:00 Metoprolol Succinate Xl 25 Mg Tabcr PO 10/10/24 08:59 QDAY PRASANTH Ondansetron HCl 4 mg 09/04/24 14:21 Ondansetron Inj 2 Mg/Ml Inj 2 Ml IV 10/04/24 14:20 Q6H PRN NAUSEA OR VOMITING Protocol Pantoprazole Sodium 40 mg 09/05/24 09:00 09/09/24 08:48 Pantoprazole 40 Mg Tablet PO 10/05/24 08:59 40 mg QDAY PRASANTH Administration Sennosides 1 tab 09/08/24 10:30 09/09/24 08:48 Senna Tablet PO 10/08/24 10:29 1 tab QDAY PRASANTH Administration Protocol Plan Patient is an 89-year-old male with past medical history of CAD, CABG, HFrEF with EF 20% s/p SECURITY SME-D, ischemic cardiomyopathy, MRSA bacteremia, hypertension, GERD, BPH, CKD stage IV, hypothyroidism, and chronic anemia requiring multiple blood transfusion, who presented to the ED with cough, shortness of breath, and chest pain. Patient is well-known by Dr. Sabillon and cardiology was consulted due to extensive cardiac history. 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 -Cardiology will follow patient closely appreciate the consult. -Continue to hold Bumex in lieu of elevated BUN/Cr # Acute hypoxic respiratory failure # Sepsis # Community-acquired pneumonia # Influenza pneumonia # Urinary tract infection # Bacteremia # Symptomatic anemia # Thrombocytopenia # Transaminitis # ESTELLA on CKD # Chronic systolic heart failure # Lactic acidosis-Resolved # Hypothyroidism Continue management per primary Case discussed with attending porcelain turner Dr. Ridge Haskins, PGY-2
[2024-09-10] VITALS (14 sets, daily range): BP systolic 95–112; BP diastolic 53–71; PULSE 84–102; RESP 18–29; TEMP 36.1–37.2; O2SAT 92–100
[2024-09-10] MEDS: ALBUTEROL/IPRATROPIUM (Duoneb) RT SOL 3 ML NEBU INH ×4 (00:04→18:40)
[2024-09-10] MEDS: LEVOTHYROXINE SODIUM 25 MCG TABLET PO (05:21)
[2024-09-10 06:11] LABS: Basophils % (Auto) 1 % (0-2.5); Eosinophils # (Auto) 0.1 Thou/mm3 (0.0-0.5); Eosinophils % (Auto) 2 % (0-10); Hematocrit 25.7 % (41.0-53.0); Immature Granulocytes % (Auto) 1 % (0-0); Immature Granulocytes Auto 0.03 Thou/mm3 (0.00-0.00); Lymphocytes # (Auto) 0.6 Thou/mm3 (1.0-4.8); Lymphocytes % (Auto) 15 % (10-50); Mean Corpuscular HGB Conc 33.9 g/dl (31.0-37.0); Mean Corpuscular Hemoglobin 32.5 pg (25.0-35.0); Mean Corpuscular Volume 96 fL (80-100); Monocytes # (Auto) 0.3 Thou/mm3 (0.0-0.8); Monocytes % (Auto) 8 % (0-12); Neutrophils % (Auto) 74 % (37-80); Nucleated Red Blood Cell % 0 /100 WBC (0); Platelet Count 111 Thou/mm3 (140-440); RDW Standard Deviation 66.4 fL (35.1-43.9); Red Blood Count 2.68 Miln/mm3 (4.50-5.90); White Blood Count 4.1 Thou/mm3 (3.8-10.6)
[2024-09-10 06:12] LABS: Hemoglobin 8.7 g/dL (13.5-16.0)
[2024-09-10 06:36] LABS: Alanine Aminotransferase 276 U/L (10-49); Albumin, Serum 3.4 gm/dL (3.4-4.8); Albumin/Globulin Ratio 0.8 (1.2-2.2); Alkaline Phosphatase 84 U/L (46-116); Anion Gap 11 (7-16); Aspartate Amino Transferase 45 U/L (0-34); BUN/Creatinine Ratio 41 Ratio (12-20); Bilirubin,Total 0.7 mg/dL (0.3-1.2); Blood Urea Nitrogen 90 mg/dL (9-23); Calcium 9.3 mg/dL (8.3-10.6); Calcium (Corrected) 9.8 mg/dL (8.5-10.1); Carbon Dioxide 20.4 mMol/L (20.0-31.0); Chloride 107 mMol/L (98-107); Creatinine (Component) 2.2 mg/dL (0.6-1.3); Estimated Creatinine Clearance 22.9 mL/min (>60); Globulin 4.3 gm/dL (2.3-3.5); Glucose 122 mg/dL (74-106); Magnesium 2.3 mg/dL (1.6-2.6); Osmolality,Calculated 304 (275-295); Phosphorous 4.6 mg/dL (2.4-5.1); Potassium 4.5 mMol/L (3.4-5.1); Sodium 138 mMol/L (136-145); Total Protein 7.7 gm/dL (5.7-8.2); eGFR 28 See Note
[2024-09-10] MEDS: PANTOPRAZOLE 40 MG TABLET PO (08:41)
[2024-09-10] MEDS: SENNA TABLET 1 TAB PO (08:41)
[2024-09-10] MEDS: FINASTERIDE 5 MG TABLET PO (08:41)
[2024-09-10] MEDS: LACTULOSE SYRUP 20 GM/30 ML UDC 10 GM PO ×2 (08:42→20:31)
[2024-09-10] MEDS: AMIODARONE HCL 200 MG TABLET PO ×2 (08:42→20:31)
[2024-09-10] MEDS: METOPROLOL SUCCINATE XL 25 MG TABCR 50 MG PO (08:42)
--- NOTE | 2024-09-10 10:08 | PC.SS ---
SS follow up: spoke with patient's son Dustin to identify the discharge plan. He informs they are refusing SNF placement for the patient. Family would like patient to return back home with [facility]. Dustin informs patient has a care provider at home and family who will be able to assist with the patient's care following hospital discharge.
--- NOTE | 2024-09-10 11:05 | ESPR_ITS ---
<Statement entered by Alla Lopez MD - 09/16/24 12:07> I reviewed above note and agree with findings and plans. I have also personally examined the patient with medicine team and went over assessment and plan with medical team including fashion styling intern and resident physician. <Statement entered by Kellen Barraza MD - 09/10/24 21:40> Patient examined bedside this morning, pleural fluid cultures pending.. Will continue to hold diuresis as per cardiology recommendation. Continue ceftriaxone 2 g IV daily.pending ID [email or web address] . I discussed with and supervised my co-resident involved in the care of this patient. I agree with the assessment and plan as documented above. Kellen Barraza,PGY-3 Disclaimer: Despite multiple revisions, due to the dictation software being used, the document below may not be free of grammatical errors including phonetic/typographic errors. However, this does not deter from our commitment to providing health care in the patient's best interest in mind. Documentation for date of: 09/10/24 Subjective Subjective Interval history: Patient was seen at bedside this morning. No overnight events. Patient is breathing has significantly improved. He appears to be rate controlled. Pleural fluid cultures are still pending. Blood cultures are negative in the 48 hours. Hemoglobin stable at 8.7 and kidney function is mildly improving with creatinine of 2.2 today. Will hold off on diuresis for now. No other complaints at this time. Exam Vital Signs Temp Pulse Resp BP Pulse Ox O2 Del Method O2 Flow Rate 97.0 F 89 19 112/57 L 96 Nasal Cannula 1 09/10/24 07:55 09/10/24 08:42 09/10/24 07:55 09/10/24 08:42 09/10/24 07:55 09/10/24 07:55 09/10/24 07:55 Narrative Exam General: A/O x3, ill appearing elderly male Eyes: PERRL, EOMI. anicteric, vision grossly intact. Ears: No ear pain, no ear discharge, Hearing grossly intact. Nose: No nasal discharge. Mouth/Throat: Dry mucous membranes, no redness, no lesions. Neck: Neck supple, non-tender, no cervical lymphadenopathy. Lungs: Clear SHAHEEN upper lobes and rhonchi in Lower lobes, No accessory muscle use. Cardio: Normal S1/S2, irregular rhythm, no murmurs, no JVD Abdomen: Soft, non-tender, no palpable masses, peristalsis present, no guarding or rebound. Extremities: Symmetrical, no significant deformities, no peripheral edema, non- tender, peripheral pulses presents. Skin: No rashes, no lesions, warm to touch. Neuro: No focal neurological deficits. motor and sensory intact Psych: Cooperative, appropriate mood and effect. Objective Labs 09/10/24 05:28 09/10/24 05:28 Labs: Laboratory Results - last 24 hr 09/10/24 05:28 WBC 4.1 RBC 2.68 L Hgb 8.7 L Hct 25.7 L MCV 96 MCH 32.5 MCHC 33.9 RDW Std Deviation 66.4 H Plt Count 111 L Neut % (Auto) 74 Lymph % (Auto) 15 [place] % (Auto) 8 Eos % (Auto) 2 Baso % (Auto) 1 Neut # (Auto) 3.0 Lymph # (Auto) 0.6 L [place] # (Auto) 0.3 Eos # (Auto) 0.1 Baso # (Auto) 0.0 Immature Gran # (Auto) 0.03 H Absolute Nucleated RBC 0.00 Immature Gran % 1 H Nucleated RBC % 0 Sodium 138 Potassium 4.5 Chloride 107 Carbon Dioxide 20.4 Anion Gap 11 BUN 90 H Creatinine 2.2 H Estim Creat Clear Calc 22.9 L eGFR 28 L BUN/Creatinine Ratio 41 H Glucose 122 H Calculated Osmolality 304 H Calcium 9.3 Corrected Calcium 9.8 Phosphorus 4.6 Magnesium 2.3 Total Bilirubin 0.7 AST 45 H ALT 276 H Alkaline Phosphatase 84 Total Protein 7.7 Albumin 3.4 Globulin 4.3 H Albumin/Globulin Ratio 0.8 L ABG Interpretation ABG results: 09/04/24 11:10 ABG pH 7.43 ABG pCO2 27 L ABG pO2 28 L* ABG HCO3 18 L ABG O2 Saturation 48 L ABG Base Excess -6 L Quality Measures Quality Measures none Advance care planning discussed with:: patient Assessment & Plan Assessment Current Active Medications: Generic Name Dose Route Start Last Admin Trade Name Freq PRN Reason Stop Dose Admin Acetaminophen 650 mg 09/04/24 14:21 Acetaminophen 325 Mg Tablet PO 10/04/24 14:20 Q6H PRN pain and Fever >100.4 Protocol Albuterol/Ipratropium 3 ml 09/07/24 01:00 09/10/24 06:37 Albuterol/Ipratropium (Duoneb) Rt Chio 3 Ml Nebu INH 10/07/24 00:59 3 ml Q6HRRT PRASANTH Administration Amiodarone HCl 200 mg 09/08/24 10:15 09/10/24 08:42 Amiodarone Hcl 200 Mg Tablet PO 10/08/24 10:14 200 mg BID PRASANTH Administration Benzonatate 100 mg 09/08/24 00:37 09/08/24 15:47 Benzonatate 100 Mg Capsule PO 10/08/24 00:36 100 mg Q8HR PRN Administration COUGH Protocol Bumetanide 2 mg 09/07/24 09:00 09/07/24 08:39 Bumetanide Inj 0.25 Mg/Ml Vial 4 Ml IVP 10/07/24 08:59 2 mg QDAY PRASANTH Administration Finasteride 5 mg 09/05/24 09:00 09/10/24 08:41 Finasteride 5 Mg Tablet PO 10/05/24 08:59 5 mg QDAY PRASANTH Administration Ceftriaxone Sodium 2 gm/ 50 mls @ 100 mls/hr 09/09/24 08:30 09/10/24 08:42 Sodium Chloride IV 09/16/24 08:29 100 mls/hr QDAY@0830 PRASANTH Administration Lactulose 10 gm 09/07/24 21:00 09/10/24 08:42 Lactulose Syrup 20 Gm/30 Ml Udc PO 10/07/24 20:59 10 gm BID PRASANTH Administration Protocol Levothyroxine Sodium 25 mcg 09/05/24 06:00 09/10/24 05:21 Levothyroxine Sodium 25 Mcg Tablet PO 10/05/24 05:59 25 mcg ACBR PRASANTH Administration Metoprolol Succinate 50 mg 09/10/24 09:00 09/10/24 08:42 Metoprolol Succinate Xl 25 Mg Tabcr PO 10/10/24 08:59 50 mg QDAY PRASANTH Administration Ondansetron HCl 4 mg 09/04/24 14:21 Ondansetron Inj 2 Mg/Ml Inj 2 Ml IV 10/04/24 14:20 Q6H PRN NAUSEA OR VOMITING Protocol Pantoprazole Sodium 40 mg 09/05/24 09:00 09/10/24 08:41 Pantoprazole 40 Mg Tablet PO 10/05/24 08:59 40 mg QDAY PRASANTH Administration Sennosides 1 tab 09/08/24 10:30 09/10/24 08:41 Senna Tablet PO 10/08/24 10:29 1 tab QDAY PRASANTH Administration Protocol Plan 89-year-old male with extensive past medical history of HFrEF (20 to 25% EF 2022), ischemic cardiomyopathy, CAD s/p CABG, MRSA bacteremia, MRSA bacteremia, defibrillator, hypertension, GERD, BPH, CKD stage IV, hypothyroidism, chronic anemia requiring multiple blood transfusion, and potential myelodysplastic syndrome was admitted to the hospital on 09/04/2024 due to acute symptomatic anemia and concerns for sepsis likely secondary to influenza pneumonia versus UTI. #Concern for sepsis likely secondary to #Acute hypoxic respiratory failure likely secondary to #Influenza pneumonia #S. pneumoniae bacteremia #Left pleural effusion, exudative #Lactic acidosis, resolved #NAGMA ?Patient stated that he started having productive cough around 2 days ago as well as shortness of breath today. ?At this time patient's blood pressure has been on the lower end with a MAP around 60-70, but this may be due to acute anemia requiring blood transfusion. ? Patient was positive for influenza A - Possible MRSA pneumonia given positive blood cx with GPCs and patient's at risk given present influenza pneumonia and advance age ?Chest x-ray that showed bilateral pneumonia ? Lactic acid 4.1 on admission and down trended to 1.4 ? Procalcitonin 12.69, CRP 27.5, Bicarb 15.6 on admission -Discontinue Rocephin 1 g daily, azithromycin 500 daily, vancomycin, and levaquin. ? Blood culture grew S. pneumoniae ?Chest x-ray 09/08/2024 did not show any improvement pneumonia or left pleural effusion - Pleural fluid serology did showed that the fluid was exudative by lights criteria - Total of 2.6 L taken out 09/08/2024 by thoracentesis. ?Discontinue cefuroxime 250 mg twice daily [09/08/2024] ?Finished oseltamavir 30 mg daily, renally dosed given patient has CKD stage IV [09/04/2024?07/10/2025] Plan: -Continue ceftriaxone 2g IV qday [09/09/2024-] -Pending pleural culture and cytology ?ID consulted, appreciate recommendations ? Will continue to monitor #A-fib, new onset ? Patient's heart rate has been in the 110s overnight and this morning ?A-fib mostly in the setting of sepsis ? EKG ordered showed A-fib ? [id number] score of 5 points, indicating 7.2% risk of stroke per year ?HAS-BLED score of 4 points, high risk of major bleeding risk Plan: ? Continue amiodarone 200 mg twice daily -Continue metoprolol XL 50mg qday ? 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 Will continue to monitor #Complicated UTI, Klebsiella pneumoniae ? UA was positive for bacteria -Urine Cx grew K. pneumoniae Plan: -Continue ceftriaxone 2g IV qday [09/09/2024-] -Will continue to monitor #Symptomatic anemia #Acute on chronic anemia #Potential myelodysplastic syndrome ?Patient states that he does feel weak and has been unable to walk in the past few days due to weakness. ?Patient states that he has required multiple multiple blood transfusions due to his chronic anemia. ? Pathology report from 2023 that showed potential myelodysplastic syndrome ? Patient does follow-up with hematology as an oncologist outpatient. ?Patient initial hemoglobin was 6.4. ?2 PRBC total transfused -Hgb today 8.7 -Folate 11.16 and Vit B12 1907 ? FOBT negative Plan: ? Bleeding precautions -Transfuse if Hgb less than 8 ? Will continue to monitor #Transaminitis ?Patient's AST 138 and ALT 134 on admission ? DDx ischemic hepatitis in the setting of hypotension versus congestive hepatopathy ? Hepatitis panel negative - Liver US showed fatty liver -AST 45 and ALT 276 today -No symptoms Plan: ? Will continue to monitor #HFrEF (15 to 20% EF 08/2023) #CAD s/p CABG #Hx of ischemic cardiomyopathy ? Patient does have some history of HFrEF with an ejection fraction of 20 to 25% on 2022 as well as having some bilateral lower extremity edema at this time. ? BNP initially was 3163 ?Patient was given 1 dose of Lasix in the ED Plan: ? Bumex on Hold for now. ? Daily weights ? Will continue to monitor #ESTELLA on CKD stage IV #ATN vs Cardiorenal ?Patient's creatinine clearance is 21.9 and Cr 2.3 on admission -Base line Cr around 2 -Cr to 2.2 today ? 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 Avoid nephrotoxic agents ? Renally dose medications - Consult nephrology, appreciate recommendations ? Will continue to monitor #Hx of hypothyroidism ?Patient's TSH was 5.9 ? Free T4 1.15 ? Patient has a history of hypothyroidism Plan: ? Will continue patient's levothyroxine 25 mcg p.o. #Hx of hypertension ?Patient's blood pressure has been soft therefore will hold off on any antihypertensive medication for now. #Hx of BPH ?Will continue finasteride 5 mg daily #Hx of GERD ?Continue pantoprazole Disposition: Patient A-fib new onset continue amio 200mg BID and metoprolol 50mg qday, Abx swtiched to rocephin 2g IV qday for exudative pleural effusion, pending pleural cultures. Diet: Cardiac GI prophylaxis: protonix DVT prophylaxis: SCDS in the setting of anemia Code: Full Case disclosed with Attending Dr. Lopez and My senior Dr. Barraza PGY3. Kevin Hodge PGY1
--- NOTE | 2024-09-10 13:51 | PD.IDPROG ---
Subjective Subjective Interval history: changedto iv by others will see again prn Exam Vital Signs Temp Pulse Resp BP Pulse Ox O2 Del Method O2 Flow Rate 97.0 F 85 22 H 96/58 L 100 Nasal Cannula 1 09/10/24 12:00 09/10/24 13:16 09/10/24 13:16 09/10/24 12:00 09/10/24 13:16 09/10/24 12:00 09/10/24 13:16 Narrative Exam limited eval Objective - Internal Medicine Labs 09/10/24 05:28 09/10/24 05:28 Labs: Laboratory Results - last 24 hr 09/10/24 05:28 WBC 4.1 RBC 2.68 L Hgb 8.7 L Hct 25.7 L MCV 96 MCH 32.5 MCHC 33.9 RDW Std Deviation 66.4 H Plt Count 111 L Neut % (Auto) 74 Lymph % (Auto) 15 [place] % (Auto) 8 Eos % (Auto) 2 Baso % (Auto) 1 Neut # (Auto) 3.0 Lymph # (Auto) 0.6 L [place] # (Auto) 0.3 Eos # (Auto) 0.1 Baso # (Auto) 0.0 Immature Gran # (Auto) 0.03 H Absolute Nucleated RBC 0.00 Immature Gran % 1 H Nucleated RBC % 0 Sodium 138 Potassium 4.5 Chloride 107 Carbon Dioxide 20.4 Anion Gap 11 BUN 90 H Creatinine 2.2 H Estim Creat Clear Calc 22.9 L eGFR 28 L BUN/Creatinine Ratio 41 H Glucose 122 H Calculated Osmolality 304 H Calcium 9.3 Corrected Calcium 9.8 Phosphorus 4.6 Magnesium 2.3 Total Bilirubin 0.7 AST 45 H ALT 276 H Alkaline Phosphatase 84 Total Protein 7.7 Albumin 3.4 Globulin 4.3 H Albumin/Globulin Ratio 0.8 L ABG Interpretation ABG results: 09/04/24 11:10 ABG pH 7.43 ABG pCO2 27 L ABG pO2 28 L* ABG HCO3 18 L ABG O2 Saturation 48 L ABG Base Excess -6 L Assessment & Plan A&P Narrative pneumococcal bacteremia. jarquin s. L pneumonia on chest imaging cytopenia, relative uti vs asb on micro ok for po rx counts noted. other problems noted. hep c neg. will see again prn home or to prior place of residence when you see fit he expected a pleural tap sunday, but cxr looks more like pneumonia to me, yumiko with pneumococcal bacteremia that has cleared please adjust any rx for ckd Time Spent With Patient Time: Total time spent is greater than 50% in coordination of care (as documented) at patient's floor/unit and/or counseling patient:
--- NOTE | 2024-09-10 14:39 | PC.SS ---
Addendum entered by DIPIKA Lopez 09/10/24 16:38: SS follow up: spoke with patient's son Dustin regarding recommendation for SNF as patient is refusing. Dustin informs that the patient is adamant he does not want SNF. They would still like if [facility] can follow the patient for physical therapy needs if necessary. Dustin informs patient's care provider also does physical therapy with the patient about three times a day at times and they feel patient can continue once discharge from the hospital. Original Note: Rounding note: pleural fluid cultures are pending. Recommendation for SNF.
--- NOTE | 2024-09-10 16:53 | ESPR_ITS ---
<Statement entered by Henrik Sabillon MD - 09/11/24 11:38> I personally examined the patient evaluated the patient appears to be clinically stable but still having weakness tiredness shortness of breath will require physical therapy rehabilitation transfer SNF agree with the treatment plan recommendation as documented by Dr. Haskins PGY 2 Documentation for date of: 09/10/24 Subjective Subjective Interval history: Overnight, no acute events reported. Patient seen and examined at bedside. Patient continues to feel much better, shortness of breath significantly has improved. IV diuretics continues to be held. Exam Vital Signs Temp Pulse Resp BP Pulse Ox O2 Del Method O2 Flow Rate 97.0 F 85 22 H 96/58 L 100 Nasal Cannula 1 09/10/24 12:00 09/10/24 13:16 09/10/24 13:16 09/10/24 12:00 09/10/24 13:16 09/10/24 12:00 09/10/24 13:16 Narrative Exam General Appearance: Pt in mild acute distress with nasal cannula sitting upright in bed. Lungs: Scattered crackles in lower bases, otherwise no wheezing noted. CVS: Irregularly, irregular, S1/S2 heard, no murmurs or rubs appreciated, mild JVD noted, trace pedal edema bilaterally ABD: Soft, non-tender, non-distended, BS + in all 4 quadrants EXT: no deformity/edema/lesions/cyanosis/clubbing, radial pulses 2+ BL, DP pulses 2 + BL SKIN: Skin exam normal without any rashes. Objective Labs 09/10/24 05:28 09/10/24 05:28 Labs: Laboratory Results - last 24 hr 09/10/24 05:28 WBC 4.1 RBC 2.68 L Hgb 8.7 L Hct 25.7 L MCV 96 MCH 32.5 MCHC 33.9 RDW Std Deviation 66.4 H Plt Count 111 L Neut % (Auto) 74 Lymph % (Auto) 15 [place] % (Auto) 8 Eos % (Auto) 2 Baso % (Auto) 1 Neut # (Auto) 3.0 Lymph # (Auto) 0.6 L [place] # (Auto) 0.3 Eos # (Auto) 0.1 Baso # (Auto) 0.0 Immature Gran # (Auto) 0.03 H Absolute Nucleated RBC 0.00 Immature Gran % 1 H Nucleated RBC % 0 Sodium 138 Potassium 4.5 Chloride 107 Carbon Dioxide 20.4 Anion Gap 11 BUN 90 H Creatinine 2.2 H Estim Creat Clear Calc 22.9 L eGFR 28 L BUN/Creatinine Ratio 41 H Glucose 122 H Calculated Osmolality 304 H Calcium 9.3 Corrected Calcium 9.8 Phosphorus 4.6 Magnesium 2.3 Total Bilirubin 0.7 AST 45 H ALT 276 H Alkaline Phosphatase 84 Total Protein 7.7 Albumin 3.4 Globulin 4.3 H Albumin/Globulin Ratio 0.8 L ABG Interpretation ABG results: 09/04/24 11:10 ABG pH 7.43 ABG pCO2 27 L ABG pO2 28 L* ABG HCO3 18 L ABG O2 Saturation 48 L ABG Base Excess -6 L Quality Measures Quality Measures none Advance care planning discussed with:: patient Assessment & Plan Assessment Current Active Medications: Generic Name Dose Route Start Last Admin Trade Name Freq PRN Reason Stop Dose Admin Acetaminophen 650 mg 09/04/24 14:21 Acetaminophen 325 Mg Tablet PO 10/04/24 14:20 Q6H PRN pain and Fever >100.4 Protocol Albuterol/Ipratropium 3 ml 09/07/24 01:00 09/10/24 13:14 Albuterol/Ipratropium (Duoneb) Rt Chio 3 Ml Nebu INH 10/07/24 00:59 3 ml Q6HRRT PRASANTH Administration Amiodarone HCl 200 mg 09/08/24 10:15 09/10/24 08:42 Amiodarone Hcl 200 Mg Tablet PO 10/08/24 10:14 200 mg BID PRASANTH Administration Benzonatate 100 mg 09/08/24 00:37 09/08/24 15:47 Benzonatate 100 Mg Capsule PO 10/08/24 00:36 100 mg Q8HR PRN Administration COUGH Protocol Bumetanide 2 mg 09/07/24 09:00 09/07/24 08:39 Bumetanide Inj 0.25 Mg/Ml Vial 4 Ml IVP 10/07/24 08:59 2 mg QDAY PRASANTH Administration Finasteride 5 mg 09/05/24 09:00 09/10/24 08:41 Finasteride 5 Mg Tablet PO 10/05/24 08:59 5 mg QDAY PRASANTH Administration Ceftriaxone Sodium 2 gm/ 50 mls @ 100 mls/hr 09/09/24 08:30 09/10/24 08:42 Sodium Chloride IV 09/16/24 08:29 100 mls/hr QDAY@0830 PRASANTH Administration Lactulose 10 gm 09/07/24 21:00 09/10/24 08:42 Lactulose Syrup 20 Gm/30 Ml Udc PO 10/07/24 20:59 10 gm BID PRASANTH Administration Protocol Levothyroxine Sodium 25 mcg 09/05/24 06:00 09/10/24 05:21 Levothyroxine Sodium 25 Mcg Tablet PO 10/05/24 05:59 25 mcg ACBR PRASANTH Administration Metoprolol Succinate 50 mg 09/10/24 09:00 09/10/24 08:42 Metoprolol Succinate Xl 25 Mg Tabcr PO 10/10/24 08:59 50 mg QDAY PRASANTH Administration Ondansetron HCl 4 mg 09/04/24 14:21 Ondansetron Inj 2 Mg/Ml Inj 2 Ml IV 10/04/24 14:20 Q6H PRN NAUSEA OR VOMITING Protocol Pantoprazole Sodium 40 mg 09/05/24 09:00 09/10/24 08:41 Pantoprazole 40 Mg Tablet PO 10/05/24 08:59 40 mg QDAY PRASANTH Administration Sennosides 1 tab 09/08/24 10:30 09/10/24 08:41 Senna Tablet PO 10/08/24 10:29 1 tab QDAY PRASANTH Administration Protocol Plan Patient is an 89-year-old male with past medical history of CAD, CABG, HFrEF with EF 20% s/p RAILWAY YARD ASSISTANT-D, ischemic cardiomyopathy, MRSA bacteremia, hypertension, GERD, BPH, CKD stage IV, hypothyroidism, and chronic anemia requiring multiple blood transfusion, who presented to the ED with cough, shortness of breath, and chest pain. Patient is well-known by Dr. Sabillon and cardiology was consulted due to extensive cardiac history. 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 -Cardiology will follow patient closely appreciate the consult. -Continue to hold Bumex in lieu of elevated BUN/Cr # Acute hypoxic respiratory failure # Sepsis # Community-acquired pneumonia # Influenza pneumonia # Urinary tract infection # Bacteremia # Symptomatic anemia # Thrombocytopenia # Transaminitis # ESTELLA on CKD # Chronic systolic heart failure # Lactic acidosis-Resolved # Hypothyroidism Continue management per primary Case discussed with attending power plant engineer Dr. Ridge Haskins, PGY-2
[2024-09-11] VITALS (13 sets, daily range): BP systolic 102–138; BP diastolic 63–73; PULSE 84–107; RESP 11–34; TEMP 36.3–37; O2SAT 95–100; BMI 24.1
[2024-09-11] MEDS: ALBUTEROL/IPRATROPIUM (Duoneb) RT SOL 3 ML NEBU INH ×4 (00:45→19:51)
[2024-09-11] MEDS: LEVOTHYROXINE SODIUM 25 MCG TABLET PO (05:10)
[2024-09-11 08:10] LABS: Basophils % (Auto) 1 % (0-2.5); Eosinophils # (Auto) 0.1 Thou/mm3 (0.0-0.5); Eosinophils % (Auto) 2 % (0-10); Hematocrit 23.7 % (41.0-53.0); Immature Granulocytes % (Auto) 1 % (0-0); Immature Granulocytes Auto 0.04 Thou/mm3 (0.00-0.00); Lymphocytes # (Auto) 0.7 Thou/mm3 (1.0-4.8); Lymphocytes % (Auto) 19 % (10-50); Mean Corpuscular HGB Conc 33.3 g/dl (31.0-37.0); Mean Corpuscular Hemoglobin 32.5 pg (25.0-35.0); Mean Corpuscular Volume 98 fL (80-100); Monocytes # (Auto) 0.2 Thou/mm3 (0.0-0.8); Monocytes % (Auto) 6 % (0-12); Neutrophils # (Auto) 2.7 Thou/mm3 (1.8-7.7); Neutrophils % (Auto) 71 % (37-80); Nucleated Red Blood Cell % 0 /100 WBC (0); Platelet Count 108 Thou/mm3 (140-440); RDW Standard Deviation 69.3 fL (35.1-43.9); Red Blood Count 2.43 Miln/mm3 (4.50-5.90); White Blood Count 3.8 Thou/mm3 (3.8-10.6)
[2024-09-11 08:30] LABS: Alanine Aminotransferase 177 U/L (10-49); Albumin, Serum 3.2 gm/dL (3.4-4.8); Albumin/Globulin Ratio 0.8 (1.2-2.2); Alkaline Phosphatase 77 U/L (46-116); Anion Gap 9 (7-16); Aspartate Amino Transferase 20 U/L (0-34); BUN/Creatinine Ratio 39 Ratio (12-20); Bilirubin,Total 0.6 mg/dL (0.3-1.2); Blood Urea Nitrogen 82 mg/dL (9-23); Calcium 9.2 mg/dL (8.3-10.6); Calcium (Corrected) 9.8 mg/dL (8.5-10.1); Carbon Dioxide 20.9 mMol/L (20.0-31.0); Chloride 107 mMol/L (98-107); Creatinine (Component) 2.1 mg/dL (0.6-1.3); Globulin 3.8 gm/dL (2.3-3.5); Glucose 118 mg/dL (74-106); Osmolality,Calculated 299 (275-295); Phosphorous 4.5 mg/dL (2.4-5.1); Potassium 4.4 mMol/L (3.4-5.1); Sodium 137 mMol/L (136-145); eGFR 30 See Note
[2024-09-11 08:33] LABS: Hemoglobin 7.9 g/dL (13.5-16.0)
[2024-09-11] MEDS: LACTULOSE SYRUP 20 GM/30 ML UDC 10 GM PO ×2 (08:33→20:35)
[2024-09-11] MEDS: FINASTERIDE 5 MG TABLET PO (08:33)
[2024-09-11] MEDS: SENNA TABLET 1 TAB PO (08:34)
[2024-09-11] MEDS: AMIODARONE HCL 200 MG TABLET PO ×2 (08:35→20:34)
[2024-09-11] MEDS: METOPROLOL SUCCINATE XL 25 MG TABCR 50 MG PO (08:35)
[2024-09-11] MEDS: ACETAMINOPHEN 325 MG TABLET 650 MG PO (08:35)
[2024-09-11] MEDS: PANTOPRAZOLE 40 MG TABLET PO (08:35)
--- NOTE | 2024-09-11 11:16 | ESPR_ITS ---
<Statement entered by Alla Lopez MD - 09/16/24 12:10> I reviewed above note and agree with findings and plans. I have also personally examined the patient with medicine team and went over assessment and plan with medical team including legal summer intern and resident physician. Documentation for date of: 09/11/24 Subjective Subjective Interval history: Was seen at bedside this morning. No overnight events. Patient's respiration continue to improve and expect possible discharge in the next 24 to 48 hours. Patient will be switched to p.o. antibiotics tomorrow. No other complaint at this time. Exam Vital Signs Temp Pulse Resp BP Pulse Ox O2 Del Method O2 Flow Rate 97.5 F 97 18 114/67 99 Nasal Cannula 1 09/11/24 08:00 09/11/24 08:35 09/11/24 08:00 09/11/24 08:35 09/11/24 08:00 09/11/24 08:00 09/11/24 08:00 Narrative Exam General: A/O x3,elderly male Eyes: PERRL, EOMI. anicteric, vision grossly intact. Ears: No ear pain, no ear discharge, Hearing grossly intact. Nose: No nasal discharge. Mouth/Throat: Dry mucous membranes, no redness, no lesions. Neck: Neck supple, non-tender, no cervical lymphadenopathy. Lungs: Clear SHAHEEN upper lobes and mild rhonchi in Lower lobes, No accessory muscle use. Cardio: Normal S1/S2, irregular rhythm, no murmurs, no JVD Abdomen: Soft, non-tender, no palpable masses, peristalsis present, no guarding or rebound. Extremities: Symmetrical, no significant deformities, no peripheral edema, non- tender, peripheral pulses presents. Skin: No rashes, no lesions, warm to touch. Neuro: No focal neurological deficits. motor and sensory intact Psych: Cooperative, appropriate mood and effect. Objective Labs 09/11/24 07:32 09/11/24 07:32 Labs: Laboratory Results - last 24 hr 09/04/24 09/11/24 11:14 07:32 WBC 3.8 RBC 2.43 L Hgb 7.9 L Hct 23.7 L MCV 98 MCH 32.5 MCHC 33.3 RDW Std Deviation 69.3 H Plt Count 108 L Neut % (Auto) 71 Lymph % (Auto) 19 [place] % (Auto) 6 Eos % (Auto) 2 Baso % (Auto) 1 Neut # (Auto) 2.7 Lymph # (Auto) 0.7 L [place] # (Auto) 0.2 Eos # (Auto) 0.1 Baso # (Auto) 0.0 Immature Gran # (Auto) 0.04 H Absolute Nucleated RBC 0.00 Immature Gran % 1 H Nucleated RBC % 0 Sodium 137 Potassium 4.4 Chloride 107 Carbon Dioxide 20.9 Anion Gap 9 BUN 82 H Creatinine 2.1 H Estim Creat Clear Calc 24.0 L eGFR 30 L BUN/Creatinine Ratio 39 H Glucose 118 H Calculated Osmolality 299 H Calcium 9.2 Corrected Calcium 9.8 Phosphorus 4.5 Magnesium 2.0 Total Bilirubin 0.6 AST 20 ALT 177 H Alkaline Phosphatase 77 Total Protein 7.0 Albumin 3.2 L Globulin 3.8 H Albumin/Globulin Ratio 0.8 L Crossmatch See Detail ABG Interpretation ABG results: 09/04/24 11:10 ABG pH 7.43 ABG pCO2 27 L ABG pO2 28 L* ABG HCO3 18 L ABG O2 Saturation 48 L ABG Base Excess -6 L Quality Measures Quality Measures none Advance care planning discussed with:: patient and child Assessment & Plan Assessment Current Active Medications: Generic Name Dose Route Start Last Admin Trade Name Freq PRN Reason Stop Dose Admin Acetaminophen 650 mg 09/04/24 14:21 09/11/24 08:35 Acetaminophen 325 Mg Tablet PO 10/04/24 14:20 650 mg Q6H PRN Administration pain and Fever >100.4 Protocol Albuterol/Ipratropium 3 ml 09/07/24 01:00 09/11/24 06:14 Albuterol/Ipratropium (Duoneb) Rt Chio 3 Ml Nebu INH 10/07/24 00:59 3 ml Q6HRRT PRASANTH Administration Amiodarone HCl 200 mg 09/08/24 10:15 09/11/24 08:35 Amiodarone Hcl 200 Mg Tablet PO 10/08/24 10:14 200 mg BID PRASANTH Administration Benzonatate 100 mg 09/08/24 00:37 09/08/24 15:47 Benzonatate 100 Mg Capsule PO 10/08/24 00:36 100 mg Q8HR PRN Administration COUGH Protocol Bumetanide 2 mg 09/07/24 09:00 09/07/24 08:39 Bumetanide Inj 0.25 Mg/Ml Vial 4 Ml IVP 10/07/24 08:59 2 mg QDAY PRASANTH Administration Finasteride 5 mg 09/05/24 09:00 09/11/24 08:33 Finasteride 5 Mg Tablet PO 10/05/24 08:59 5 mg QDAY PRASANTH Administration Ceftriaxone Sodium 2 gm/ 50 mls @ 100 mls/hr 09/09/24 08:30 09/11/24 09:56 Sodium Chloride IV 09/16/24 08:29 100 mls/hr QDAY@0830 PRASANTH Administration Lactulose 10 gm 09/07/24 21:00 09/11/24 08:33 Lactulose Syrup 20 Gm/30 Ml Udc PO 10/07/24 20:59 10 gm BID PRASANTH Administration Protocol Levothyroxine Sodium 25 mcg 09/05/24 06:00 09/11/24 05:10 Levothyroxine Sodium 25 Mcg Tablet PO 10/05/24 05:59 25 mcg ACBR PRASNATH Administration Metoprolol Succinate 50 mg 09/10/24 09:00 09/11/24 08:35 Metoprolol Succinate Xl 25 Mg Tabcr PO 10/10/24 08:59 50 mg QDAY PRASANTH Administration Ondansetron HCl 4 mg 09/04/24 14:21 Ondansetron Inj 2 Mg/Ml Inj 2 Ml IV 10/04/24 14:20 Q6H PRN NAUSEA OR VOMITING Protocol Pantoprazole Sodium 40 mg 09/05/24 09:00 09/11/24 08:35 Pantoprazole 40 Mg Tablet PO 10/05/24 08:59 40 mg QDAY PRASANTH Administration Sennosides 1 tab 09/08/24 10:30 09/11/24 08:34 Senna Tablet PO 10/08/24 10:29 1 tab QDAY PRASANTH Administration Protocol Plan 89-year-old male with extensive past medical history of HFrEF (20 to 25% EF 2022), ischemic cardiomyopathy, CAD s/p CABG, MRSA bacteremia, MRSA bacteremia, defibrillator, hypertension, GERD, BPH, CKD stage IV, hypothyroidism, chronic anemia requiring multiple blood transfusion, and potential myelodysplastic syndrome was admitted to the hospital on 09/04/2024 due to acute symptomatic anemia and concerns for sepsis likely secondary to influenza pneumonia versus UTI. #Concern for sepsis likely secondary to #Acute hypoxic respiratory failure likely secondary to #Influenza pneumonia #S. pneumoniae bacteremia #Left pleural effusion, exudative #Lactic acidosis, resolved #NAGMA ?Patient stated that he started having productive cough around 2 days ago as well as shortness of breath today. ?At this time patient's blood pressure has been on the lower end with a MAP around 60-70, but this may be due to acute anemia requiring blood transfusion. ? Patient was positive for influenza A - Possible MRSA pneumonia given positive blood cx with GPCs and patient's at risk given present influenza pneumonia and advance age ?Chest x-ray that showed bilateral pneumonia ? Lactic acid 4.1 on admission and down trended to 1.4 ? Procalcitonin 12.69, CRP 27.5, Bicarb 15.6 on admission -Discontinue Rocephin 1 g daily, azithromycin 500 daily, vancomycin, and levaquin. ? Blood culture grew S. pneumoniae ?Chest x-ray 09/08/2024 did not show any improvement pneumonia or left pleural effusion - Pleural fluid serology did showed that the fluid was exudative by lights criteria - Total of 2.6 L taken out 09/08/2024 by thoracentesis. ?Discontinue cefuroxime 250 mg twice daily [09/08/2024] ?Finished oseltamavir 30 mg daily, renally dosed given patient has CKD stage IV [09/04/2024?07/10/2025] Plan: -Continue ceftriaxone 2g IV qday [09/09/2024-] -Will transition to PO abx tomorrow. -Pending pleural culture and cytology ?ID consulted, appreciate recommendations ? Will continue to monitor #A-fib, new onset ? Patient's heart rate has been in the 110s overnight and this morning ?A-fib mostly in the setting of sepsis ? EKG ordered showed A-fib ? [id number] score of 5 points, indicating 7.2% risk of stroke per year ?HAS-BLED score of 4 points, high risk of major bleeding risk Plan: ? Continue amiodarone 200 mg twice daily -Continue metoprolol XL 50mg qday ? Will discuss with patient and proof operator about starting Eliquis ? Will continue to monitor #Complicated UTI, Klebsiella pneumoniae ? UA was positive for bacteria -Urine Cx grew K. pneumoniae Plan: -Continue ceftriaxone 2g IV qday [09/09/2024-] -Will continue to monitor #Symptomatic anemia #Acute on chronic anemia #Potential myelodysplastic syndrome ?Patient states that he does feel weak and has been unable to walk in the past few days due to weakness. ?Patient states that he has required multiple multiple blood transfusions due to his chronic anemia. ? Pathology report from 2023 that showed potential myelodysplastic syndrome ? Patient does follow-up with hematology as an oncologist outpatient. ?Patient initial hemoglobin was 6.4. ?2 PRBC total transfused -Hgb today 7.9 -Folate 11.16 and Vit B12 1907 ? FOBT negative Plan: ? Bleeding precautions -Transfuse if Hgb less than 8 ? Will continue to monitor #Transaminitis ?Patient's AST 138 and ALT 134 on admission ? DDx ischemic hepatitis in the setting of hypotension versus congestive hepatopathy ? Hepatitis panel negative - Liver US showed fatty liver -AST 20 and ALT 177 today -No symptoms Plan: ? Will continue to monitor #HFrEF (15 to 20% EF 08/2023) #CAD s/p CABG #Hx of ischemic cardiomyopathy ? Patient does have some history of HFrEF with an ejection fraction of 20 to 25% on 2022 as well as having some bilateral lower extremity edema at this time. ? BNP initially was 3163 ?Patient was given 1 dose of Lasix in the ED Plan: ? Bumex on Hold for now. ? Daily weights ? Will continue to monitor #ESTELLA on CKD stage IV #ATN vs Cardiorenal ?Patient's creatinine clearance is 21.9 and Cr 2.3 on admission -Base line Cr around 2 -Cr to 2.1 today ? Patient follows up outpatient with airbrush artist Plan: ? Avoid nephrotoxic agents ? Renally dose medications - Consult nephrology, appreciate recommendations ? Will continue to monitor #Hx of hypothyroidism ?Patient's TSH was 5.9 ? Free T4 1.15 ? Patient has a history of hypothyroidism Plan: ? Will continue patient's levothyroxine 25 mcg p.o. #Hx of hypertension ?Patient's blood pressure has been soft therefore will hold off on any antihypertensive medication for now. #Hx of BPH ?Will continue finasteride 5 mg daily #Hx of GERD ?Continue pantoprazole Disposition: Patient A-fib new onset continue amio 200mg BID and metoprolol 50mg qday, Abx swtiched to rocephin 2g IV qday for exudative pleural effusion, possible Dc in next 24-48hrs. Diet: Cardiac GI prophylaxis: protonix DVT prophylaxis: SCDS in the setting of anemia Code: Full Case disclosed with Attending Dr. Lopez and My senior Dr. Williamson PGY2. Kevin Shannondiana Hodge PGY1 Senior Resident Attestation: The patient is a 89-year-old male with significant past medical history of HFrEF 15 to 20%, ischemic cardiomyopathy, CAD s/p CABG, MRSA bacteremia, defibrillator, hypertension, GERD, BPH, CKD stage IV, hypothyroidism, chronic anemia requiring multiple blood transfusion likely secondary to myelodysplastic syndrome presented to ED on 09/04/2024 with chief complaint of anemia and was found to have influenza pneumonia and UTI. The patient reported doing well this morning. His vitals were stable, saturating 95% on 1 L NC. Labs were at baseline, BUN/creatinine trended down to 82/2.1. We are awaiting pleural fluid culture, and we will discontinue IV Rocephin 2 g daily and change the antibiotics to cefuroxime 250 Mg twice daily starting from tomorrow. The patient heart rate continues to be in the 90s to 100s. We are continuing with amiodarone 200 Mg twice daily and metoprolol XL 50 Mg daily. His transaminitis is resolving. He was well-hydrated, and his ESTELLA is improving. The plan is to discharge him to SNF tomorrow if his vitals and labs are stable. I discussed with and supervised the legal summer intern physician involved in the care of this patient. I personally saw and examined the patient and discussed the assessment and plan with the entire medicine team, including my attending. I agree with the assessment and plan as documented above. Rusty Williamson MD PGY2 Internal Medicine
--- NOTE | 2024-09-11 14:38 | ESPR_ITS ---
<Statement entered by Henrik Sabillon MD - 09/12/24 13:28> I personally examined the patient evaluated the patient appears to be doing clinically better but still have low output symptoms shortness may continue diuretic therapy patient is stable enough to be discharged [facility] if he is agreeable and if the bed is available. I evaluated the patient with Dr. Patel PGY 2 agree with the treatment plan recommendation all essential complaints are reviewed by me personally Documentation for date of: 09/11/24 Subjective Subjective Interval history: Patient seen and assessed at bedside. Patient appears to be doing better, on 1 L nasal cannula saturating well. Patient still complaining of mild shortness of breath. Discussed about patient benefiting from rehab and patient in agreement that he would do well with physical therapy. Exam Vital Signs Temp Pulse Resp BP Pulse Ox O2 Del Method O2 Flow Rate 97.5 F 102 H 25 H 103/69 100 Nasal Cannula 1 09/11/24 11:52 09/11/24 12:00 09/11/24 12:00 09/11/24 11:52 09/11/24 12:00 09/11/24 11:52 09/11/24 12:00 Narrative Exam General: Pleasant elderly male. NAD, resting comfortably in bed. Lungs: Chest clear on auscultation, possible crackles left lower lobe. On 1 L nasal cannula. CVS: Irregularly, irregular, S1/S2 heard, no murmurs or rubs appreciated, mild JVD noted, trace edema bilaterally ABD: Soft, non-tender, non-distended, BS + in all 4 quadrants SKIN: Skin exam normal without any rashes. Objective Labs 09/11/24 07:32 09/11/24 07:32 Labs: Laboratory Results - last 24 hr 09/04/24 09/11/24 11:14 07:32 WBC 3.8 RBC 2.43 L Hgb 7.9 L Hct 23.7 L MCV 98 MCH 32.5 MCHC 33.3 RDW Std Deviation 69.3 H Plt Count 108 L Neut % (Auto) 71 Lymph % (Auto) 19 [place] % (Auto) 6 Eos % (Auto) 2 Baso % (Auto) 1 Neut # (Auto) 2.7 Lymph # (Auto) 0.7 L [place] # (Auto) 0.2 Eos # (Auto) 0.1 Baso # (Auto) 0.0 Immature Gran # (Auto) 0.04 H Absolute Nucleated RBC 0.00 Immature Gran % 1 H Nucleated RBC % 0 Sodium 137 Potassium 4.4 Chloride 107 Carbon Dioxide 20.9 Anion Gap 9 BUN 82 H Creatinine 2.1 H Estim Creat Clear Calc 24.0 L eGFR 30 L BUN/Creatinine Ratio 39 H Glucose 118 H Calculated Osmolality 299 H Calcium 9.2 Corrected Calcium 9.8 Phosphorus 4.5 Magnesium 2.0 Total Bilirubin 0.6 AST 20 ALT 177 H Alkaline Phosphatase 77 Total Protein 7.0 Albumin 3.2 L Globulin 3.8 H Albumin/Globulin Ratio 0.8 L Crossmatch See Detail ABG Interpretation ABG results: 09/04/24 11:10 ABG pH 7.43 ABG pCO2 27 L ABG pO2 28 L* ABG HCO3 18 L ABG O2 Saturation 48 L ABG Base Excess -6 L Quality Measures Quality Measures none Advance care planning discussed with:: patient Assessment & Plan Assessment Current Active Medications: Generic Name Dose Route Start Last Admin Trade Name Freq PRN Reason Stop Dose Admin Acetaminophen 650 mg 09/04/24 14:21 09/11/24 08:35 Acetaminophen 325 Mg Tablet PO 10/04/24 14:20 650 mg Q6H PRN Administration pain and Fever >100.4 Protocol Albuterol/Ipratropium 3 ml 09/07/24 01:00 09/11/24 12:00 Albuterol/Ipratropium (Duoneb) Rt Chio 3 Ml Nebu INH 10/07/24 00:59 3 ml Q6HRRT PRASANTH Administration Amiodarone HCl 200 mg 09/08/24 10:15 09/11/24 08:35 Amiodarone Hcl 200 Mg Tablet PO 10/08/24 10:14 200 mg BID PRASANTH Administration Benzonatate 100 mg 09/08/24 00:37 09/08/24 15:47 Benzonatate 100 Mg Capsule PO 10/08/24 00:36 100 mg Q8HR PRN Administration COUGH Protocol Bumetanide 2 mg 09/07/24 09:00 09/07/24 08:39 Bumetanide Inj 0.25 Mg/Ml Vial 4 Ml IVP 10/07/24 08:59 2 mg QDAY PRASANTH Administration Finasteride 5 mg 09/05/24 09:00 09/11/24 08:33 Finasteride 5 Mg Tablet PO 10/05/24 08:59 5 mg QDAY PRASANTH Administration Ceftriaxone Sodium 2 gm/ 50 mls @ 100 mls/hr 09/09/24 08:30 09/11/24 09:56 Sodium Chloride IV 09/16/24 08:29 100 mls/hr QDAY@0830 PRASANTH Administration Lactulose 10 gm 09/07/24 21:00 09/11/24 08:33 Lactulose Syrup 20 Gm/30 Ml Udc PO 10/07/24 20:59 10 gm BID PRASANTH Administration Protocol Levothyroxine Sodium 25 mcg 09/05/24 06:00 09/11/24 05:10 Levothyroxine Sodium 25 Mcg Tablet PO 10/05/24 05:59 25 mcg ACBR PRASANTH Administration Metoprolol Succinate 50 mg 09/10/24 09:00 09/11/24 08:35 Metoprolol Succinate Xl 25 Mg Tabcr PO 10/10/24 08:59 50 mg QDAY PRASANTH Administration Ondansetron HCl 4 mg 09/04/24 14:21 Ondansetron Inj 2 Mg/Ml Inj 2 Ml IV 10/04/24 14:20 Q6H PRN NAUSEA OR VOMITING Protocol Pantoprazole Sodium 40 mg 09/05/24 09:00 09/11/24 08:35 Pantoprazole 40 Mg Tablet PO 10/05/24 08:59 40 mg QDAY PRASANTH Administration Sennosides 1 tab 09/08/24 10:30 09/11/24 08:34 Senna Tablet PO 10/08/24 10:29 1 tab QDAY PRASANTH Administration Protocol Plan Patient is an 89-year-old male with past medical history of CAD, CABG, HFrEF with EF 20% s/p RETAIL PRODUCT ADVISOR-D, ischemic cardiomyopathy, MRSA bacteremia, hypertension, GERD, BPH, CKD stage IV, hypothyroidism, and chronic anemia requiring multiple blood transfusion, who presented to the ED with cough, shortness of breath, and chest pain. Patient is well-known by Dr. Sabillon and cardiology was consulted due to extensive cardiac history. 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 -Cardiology will follow patient closely appreciate the consult. -Okay to restart oral home dose of Bumex # Acute hypoxic respiratory failure # Sepsis # Community-acquired pneumonia # Influenza pneumonia # Urinary tract infection # Bacteremia # Symptomatic anemia # Thrombocytopenia # Transaminitis # ESTELLA on CKD # Chronic systolic heart failure # Lactic acidosis-Resolved # Hypothyroidism Continue management per primary Case discussed with attending food expeditor Dr. Rigde Patel MD PGY3
--- NOTE | 2024-09-11 16:55 | ESCONSULT_ITS ---
History of Present Illness Data of Consult Requesting Physician: Alla Lopez MD Primary Care Provider: Ray Gillette MD Consult Narrative History of present illness: Mr. Wyatt is a 89-year-old fragile gentleman with extensive past medical history of HFrEF (20 to 25% EF 2022), ischemic cardiomyopathy, CAD s/p CABG, MRSA bacteremia, defibrillator, hypertension, GERD, BPH, CKD stage IV(being followed by a guidance services coordinator-??? Not sure of the name), hypothyroidism, chronic anemia requiring multiple blood transfusion, and potential myelodysplastic syndrome was admitted to the hospital on 09/04/2024 after coming to the ED with cough, shortness of breath, and chest pain. Patient was accompanied by son at bedside, but were poor historians. During assessment patient stated that around 2 days ago he started developing a productive cough, and today he became short of breath. Patient lives at [facility]. Patient states that he has needed multiple blood transfusions in the past due to chronic anemia, but upon chart review patient does have bone marrow biopsy which came back with concerns for possible myelodysplastic syndrome. In the emergency department patient did receive 2 units of blood. Labs showed hemoglobin 6.4, platelets 121. Sodium 133, bicarbonate 15.6, BUN 76, creatinine 2.3, lactic acid 4.1, magnesium 1.5, AST 138, ALT 134, CRP 27.5, BNP 3163, Pro-Emiliano 12.6, TSH 5.9, urinalysis shows UTI. Patient positive for flu. EKG showed paced rhythm. Chest x-ray showed extensive bilateral pneumonia. Patient admitted to telemetry with a diagnosis of ESTELLA, pneumonia. Currently seen in respiratory isolation. Nephrology consultation requested in view of ESTELLA. Pt seen and examined cc:: cc: Alla Lopez MD Meds Home Medications and Allergies Home Medications ?Medication ?Instructions ?Recorded ?Confirmed ?Type aspirin 81 mg tablet 81 mg PO DAILY 08/16/23 07/31/24 History finasteride 5 mg tablet 5 mg PO DAILY 08/16/23 07/31/24 History fluticasone propionate 50 1 spray intranasal BID 08/16/23 07/31/24 History mcg/actuation nasal spray,suspension levothyroxine 25 mcg tablet 25 mcg PO DAILY 08/16/23 07/31/24 History pantoprazole 40 mg tablet,delayed 40 mg PO DAILY 08/16/23 07/31/24 History release tamsulosin 0.4 mg capsule 0.4 mg PO DAILY 08/16/23 07/31/24 History hydroxyzine HCl 50 mg tablet 50 mg PO QID PRN 07/31/24 07/31/24 History epoetin jackie-epbx 40,000 unit/mL 40,000 unit IV QWEEK 09/05/24 09/05/24 History injection solution (Retacrit) Allergies Allergy/AdvReac Type Severity Reaction Status Date / Time No Known Allergies Allergy Verified 09/04/24 10:08 Exam Vital Signs Temp Pulse Resp BP Pulse Ox O2 Del Method O2 Flow Rate 97.5 F 90 20 102/73 95 Nasal Cannula 1 09/11/24 15:57 09/11/24 15:57 09/11/24 15:57 09/11/24 15:57 09/11/24 15:57 09/11/24 15:57 09/11/24 15:57 Narrative Exam heart s1, s2 chest CTA coty intact Results Labs 09/11/24 07:32 09/11/24 07:32 Labs: Short CBC 09/11/24 Range/Units 07:32 WBC 3.8 (3.8-10.6) Thou/mm3 Hgb 7.9 L (13.5-16.0) g/dL Hct 23.7 L (41.0-53.0) % Plt Count 108 L (140-440) Thou/mm3 BMP 09/11/24 07:32 Sodium 137 Potassium 4.4 Chloride 107 Carbon Dioxide 20.9 BUN 82 H Creatinine 2.1 H Glucose 118 H Calcium 9.2 Liver Function 09/11/24 Range/Units 07:32 Total Bilirubin 0.6 (0.3-1.2) mg/dL AST 20 (0-34) U/L ALT 177 H (10-49) U/L Alkaline Phosphatase 77 (46-116) U/L Albumin 3.2 L (3.4-4.8) gm/dL ABG Interpretation ABG results: 09/04/24 11:10 ABG pH 7.43 ABG pCO2 27 L ABG pO2 28 L* ABG HCO3 18 L ABG O2 Saturation 48 L ABG Base Excess -6 L Assessment & Plan Assessment and plan (1) Acute on chronic renal failure: Status: Acute Assessment and plan: Creat is stabilizing c/w supportive care avoid nephrotoxic medication will monitor closely (2) UTI (urinary tract infection): Status: Acute (3) Acute respiratory failure with hypoxia: Status: Acute (4) Pneumonia: Status: Acute (5) Severe anemia: Status: Acute (6) Sepsis: Status: Acute Additional Assessment & Plan Additional Plan: Thank you Samuel for allowing me to participate in the care of Mr. Chan
[2024-09-12] VITALS (10 sets, daily range): BP systolic 102–110; BP diastolic 63–73; PULSE 80–106; RESP 15–33; TEMP 36.2–36.6; O2SAT 92–100; BMI 23.8
[2024-09-12] MEDS: ALBUTEROL/IPRATROPIUM (Duoneb) RT SOL 3 ML NEBU INH ×3 (01:14→13:06)
[2024-09-12] MEDS: LEVOTHYROXINE SODIUM 25 MCG TABLET PO (05:20)
[2024-09-12 05:55] LABS: Basophils % (Auto) 1 % (0-2.5); Eosinophils # (Auto) 0.1 Thou/mm3 (0.0-0.5); Eosinophils % (Auto) 2 % (0-10); Hematocrit 24.2 % (41.0-53.0); Immature Granulocytes % (Auto) 1 % (0-0); Immature Granulocytes Auto 0.03 Thou/mm3 (0.00-0.00); Lymphocytes # (Auto) 0.6 Thou/mm3 (1.0-4.8); Lymphocytes % (Auto) 16 % (10-50); Mean Corpuscular HGB Conc 32.2 g/dl (31.0-37.0); Mean Corpuscular Hemoglobin 32.1 pg (25.0-35.0); Mean Corpuscular Volume 100 fL (80-100); Monocytes # (Auto) 0.2 Thou/mm3 (0.0-0.8); Monocytes % (Auto) 6 % (0-12); Neutrophils # (Auto) 2.8 Thou/mm3 (1.8-7.7); Neutrophils % (Auto) 73 % (37-80); Nucleated Red Blood Cell % 0 /100 WBC (0); Platelet Count 112 Thou/mm3 (140-440); RDW Standard Deviation 72.5 fL (35.1-43.9); Red Blood Count 2.43 Miln/mm3 (4.50-5.90); White Blood Count 3.9 Thou/mm3 (3.8-10.6)
[2024-09-12 05:56] LABS: Hemoglobin 7.8 g/dL (13.5-16.0)
[2024-09-12 06:23] LABS: Alanine Aminotransferase 132 U/L (10-49); Albumin, Serum 3.2 gm/dL (3.4-4.8); Albumin/Globulin Ratio 0.7 (1.2-2.2); Alkaline Phosphatase 76 U/L (46-116); Anion Gap 11 (7-16); Aspartate Amino Transferase 15 U/L (0-34); BUN/Creatinine Ratio 39 Ratio (12-20); Bilirubin,Total 0.5 mg/dL (0.3-1.2); Blood Urea Nitrogen 82 mg/dL (9-23); Calcium 9.4 mg/dL (8.3-10.6); Carbon Dioxide 20.5 mMol/L (20.0-31.0); Chloride 108 mMol/L (98-107); Creatinine (Component) 2.1 mg/dL (0.6-1.3); Globulin 4.4 gm/dL (2.3-3.5); Glucose 116 mg/dL (74-106); Magnesium 2.1 mg/dL (1.6-2.6); Osmolality,Calculated 303 (275-295); Potassium 4.6 mMol/L (3.4-5.1); Sodium 139 mMol/L (136-145); Total Protein 7.6 gm/dL (5.7-8.2); eGFR 30 See Note
[2024-09-12] MEDS: LACTULOSE SYRUP 20 GM/30 ML UDC 10 GM PO (08:49)
[2024-09-12] MEDS: cefuroxime axetiL 250 MG TABLET PO (08:50)
[2024-09-12] MEDS: BUMETANIDE 0.5 MG TABLET 1 MG PO (08:50)
[2024-09-12] MEDS: FINASTERIDE 5 MG TABLET PO (08:50)
[2024-09-12] MEDS: AMIODARONE HCL 200 MG TABLET PO (08:50)
[2024-09-12] MEDS: METOPROLOL SUCCINATE XL 25 MG TABCR 50 MG PO (08:50)
[2024-09-12] MEDS: PANTOPRAZOLE 40 MG TABLET PO (08:51)
[2024-09-12] MEDS: SENNA TABLET 1 TAB PO (08:51)
--- NOTE | 2024-09-12 10:04 | ESDS_ITS ---
<Statement entered by Alla Lopez MD - 09/16/24 12:15> I reviewed above note and agree with findings and plans. I have also personally examined the patient with medicine team and went over assessment and plan with medical team including digital media intern and resident physician. Planned Discharge Date 09/12/24 DS: Providers Provider Date of admission: 09/04/24 14:21 Primary care physician: Ray Gillette MD Admitting Provider: Samuel Bautista MD Attending Provider on Admission: Alla Lopez MD Consults: 09/05/24 11:36 Consult to Nephrology Routine Comment: Consulting Provider: Demario Simpson 09/06/24 10:48 Consult to Cardiology Routine Comment: CHF, EF 15-20 Consulting Provider: Henrik Sabillon 09/06/24 14:44 Referral Physical Therapy Routine Comment: Physician Instructions: 09/07/24 10:52 Referral Speech Therapy Routine Comment: Dysphag 09/08/24 06:17 Consult to Nephrology Routine Comment: ESTELLA Consulting Provider: Ronni Leonard 09/08/24 08:08 Consult to Infectious Diseases Routine Comment: Consulting Provider: Vincent Doe 09/08/24 13:54 Referral Wound Care Routine Comment: 09/09/24 08:00 Referral Physical Therapy Urgent Comment: Physician Instructions: Attending Provider on DC: Alla Lopez MD Discharging Provider: Alla Lopez MD DS: Diagnosis Problem List Completed Was Problem List Reviewed/Reconciled?: Yes Hospital Course Hospital Course Hospital course: 89-year-old male with extensive past medical history of HFrEF (15-20% EF 08/2024), ischemic cardiomyopathy, CAD s/p CABG, MRSA bacteremia, MRSA bacteremia, defibrillator, hypertension, GERD, BPH, CKD stage IV, hypothyroidism, chronic anemia requiring multiple blood transfusion, and potential myelodysplastic syndrome was admitted to the hospital on 09/04/2024 due to acute symptomatic anemia and concerns for sepsis likely secondary to influenza pneumonia versus S. pneumoniae bacteremia versus K. pneumoniae UTI. I n the ED patient came in with cough, shortness of breath, and chest pain. Initially came into tachypneic, tachycardic, hypoxic, mildly hypotensive, and afebrile. Initial labs were relevant for low hemoglobin (6.4), thrombocytopenia (121), ABG showed hypoxemia with a pO2 of 28, mild hyponatremia (133), metabolic acidosis (bicarb 15.6), elevated BUN at 76 and elevated creatinine at 2.3, lactic acidosis (4.1), hypomagnesemia (1.5, transaminitis (AST 138 and ALT 134), elevated CRP (27.5), elevated BNP 3163, elevated procalcitonin (12.69), elevated TSH (5.9), and UA was positive for bacteria. Patient was positive for flu. Initial imaging included EKG which showed paced rhythm and chest x-ray which showed bilateral pneumonia. Initially patient was transfused 2 PRBCs and was given small boluses of fluid given that he was hypotensive and was most likely septic. Patient also developed transaminitis likely secondary to hypotension. During the patient's hospital course nephrology was consulted given his worsening kidney function as well as cardiology was consulted given his extensive cardiac history. Given the patient is kidney function deteriorated further during the first days of his hospital stay diuretics were decided to be held. Patient's kidney function at this improved significantly. Patient also developed atrial fibrillation during his hospital stay in which amiodarone 200 twice daily was started, but given that patient was not rate controlled he was also started on metoprolol succinate which did not help she rate control. Patient's blood cultures came back positive for Streptococcus pneumonia and urine cultures came back positive for Klebsiella pneumoniae. He was placed on antibiotics throughout his hospital stay and once we had cultures and sensitivity his antibiotics were narrowed down. Towards the end of the patient's hospital stay he developed shortness of breath for which a chest x-ray was ordered and showed that patient did have a pleural effusion and and a thoracentesis was ordered which was provided significant improvement in the patient's respiration. Pleural fluid was sent for cytology as well as cultures. Patient's hospital stay after the thoracentesis remained stable with significant improvement in the patient. At the time of discharge she was stable enough to be discharged to a longterm facility. Discharge plan: Please follow-up with your PCP within 1 week of discharge Please follow-up with assurance officer Dr. Cristhian Sabillon within 1 week of discharge Please follow-up with nephrology Dr. Leonard in 1 week. You have been started on: -Bumetanide 2 mg daily, hold if SBP <100 or DBP <65 -Sacubitril-valsartan 24-26 mg tablet twice daily, hold if SBP<110 and DBP <70mmhg -Cephalexin 250 Mg twice daily for 5 more days -Coreg 3.125mg twice daily We have stopped: -Carvedilol 25 Mg twice daily -Sacubitril-valsartan 49-51 mg twice daily Continue with all other medicines as prescribed before Problems: #Sepsis likely secondary to #Acute hypoxic respiratory failure likely secondary to #Influenza pneumonia #S. pneumoniae bacteremia #Left pleural effusion, exudative #Lactic acidosis, resolved #NAGMA #A-fib, new onset #Complicated UTI, Klebsiella pneumoniae #Symptomatic anemia #Acute on chronic anemia #Potential myelodysplastic syndrome #Transaminitis #HFrEF (15 to 20% EF 08/2023) #CAD s/p CABG #Hx of ischemic cardiomyopathy #ESTELLA on CKD stage IV #ATN vs Cardiorenal #Hx of hypothyroidism #Hx of hypertension #Hx of BPH #Hx of GERD Case disclosed with Attending Dr. Lopez and My senior Dr. Williamson PGY2. Kevin Hodge PGY1 Senior Resident Attestation: I discussed with and supervised the digital media intern physician involved in the care of this patient. I personally saw and examined the patient and discussed the assessment and plan with the entire medicine team, including my attending. I agree with the discharge plan as documented above. Rusty Williamson MD PGY2 Internal Medicine Status at Discharge Overall status at discharge: patient is progressing back to baseline Time Spent with Patient Time attestation: Total time spent providing and/or coordinating discharge services:>35 min Exam Vital Signs Temp Pulse Resp BP Pulse Ox O2 Del Method O2 Flow Rate 97.7 F 82 28 H 109/64 100 Nasal Cannula 1 09/12/24 04:00 09/12/24 08:50 09/12/24 07:02 09/12/24 08:50 09/12/24 07:02 09/12/24 04:00 09/12/24 07:02 Narrative Exam General: A/O x3,elderly male Eyes: PERRL, EOMI. anicteric, vision grossly intact. Ears: No ear pain, no ear discharge, Hearing grossly intact. Nose: No nasal discharge. Mouth/Throat: Dry mucous membranes, no redness, no lesions. Neck: Neck supple, non-tender, no cervical lymphadenopathy. Lungs: Clear SHAHEEN upper lobes and mild rhonchi in Lower lobes, No accessory muscle use. Cardio: Normal S1/S2, irregular rhythm, no murmurs, no JVD Abdomen: Soft, non-tender, no palpable masses, peristalsis present, no guarding or rebound. Extremities: Symmetrical, no significant deformities, no peripheral edema, non- tender, peripheral pulses presents. Skin: No rashes, no lesions, warm to touch. Neuro: No focal neurological deficits. motor and sensory intact Psych: Cooperative, appropriate mood and effect. Discharge Plan Plan Patient Disposition: Xfer Skilled Nsg Fac (SNF) Care Plan Goals: Please follow-up with your PCP within 1 week of discharge Please follow-up with assurance officer Dr. Cristhian Sabiloln within 1 week of discharge Please follow-up with nephrology Dr. Leonard in 1 week. You have been started on: -Bumetanide 2 mg daily, hold if SBP <100 or DBP <65 -Sacubitril-valsartan 24-26 mg tablet twice daily, hold if SBP<110 and DBP <70mmhg -Cephalexin 250 Mg twice daily for 5 more days -Coreg 3.125mg twice daily We have stopped: -Carvedilol 25 Mg twice daily -Sacubitril-valsartan 49-51 mg twice daily Continue with all other medicines as prescribed before Prescriptions/Referrals Prescriptions/Med Rec: New cefuroxime axetil 250 mg Tablet 250 mg PO BID 5 Days Qty: 10 0RF sacubitril-valsartan [Entresto] 24-26 mg tablet 1 tab PO BID Qty: 60 2RF bumetanide 2 mg tablet 2 mg PO QDAY Qty: 30 0RF carvedilol [Coreg] 3.125 mg tablet 3.125 mg PO BID Qty: 60 0RF Rx Instructions: must administer with a meal/food Continued hydroxyzine HCl 50 mg tablet 50 mg PO QID PRN levothyroxine 25 mcg tablet 25 mcg PO DAILY Patient Comments: TAKE 1 TABLET BY MOUTH EVERY DAY pantoprazole 40 mg tablet,delayed release (DR/EC) 40 mg PO DAILY Patient Comments: TAKE 1 TABLET BY MOUTH EVERY DAY 30 MINUTES BEFORE BREAKFAST finasteride 5 mg tablet 5 mg PO DAILY tamsulosin 0.4 mg capsule 0.4 mg PO DAILY aspirin 81 mg Tablet 81 mg PO DAILY Hold Instructions: Resume on 01/11/24. fluticasone propionate 50 mcg/actuation [place],Suspension 1 spray INTRANASAL BID acetaminophen [Tylenol] 325 mg tablet 650 mg PO BID PRN (Reason: pain) Qty: 14 0RF Retacrit 40,000 unit/mL solution 40,000 unit IV QWEEK Patient Comments: INJECT 40,000 UNITS UNDER THE SKIN EVERY 7 DAYS Discontinued carvedilol 25 mg tablet 25 mg PO BID Patient Comments: TAKE 1 TABLET BY MOUTH TWICE A DAY sacubitril-valsartan [Entresto] 49-51 mg tablet 1 tab PO BID Patient Comments: TAKE 1 TABLET BY MOUTH TWICE A DAY Retacrit 40,000 unit/mL solution Patient Comments: INJECT 40,000 UNITS UNDER THE SKIN EVERY 7 DAYS Referrals: Henrik Sabillon MD [Physician] - Nain (PCP),MD Ray [Primary Care Provider] - Patient/Caregiver Discharge Instructions Discharge Activity: as per physical therapy Education Materials: Thoracentesis Dc, Heart Failure Meds, Heart Failure Signs of Flare-Up Print Language: Stateless Stand Alone Forms: [employer] Award Info., Patient Portal Info Letter Discharge Order Discharge Orders: Discharge (Routine); Ordered 09/12/24 Ordered By: Rusty Williamson Quality Discharge Quality Measures VTE prophylaxis
--- NOTE | 2024-09-12 14:46 | PC.SS ---
Addendum entered by DIPIKA Lopez 09/12/24 15:52: Hannah at [facility] is agreeable with accepting the patient today. Contacted patient's insurance and is not aligned with [employer]. [facility] contacted. ETA is 7pm. Notified bed side nurse, Hannah at SNF and patient and patient's family at bed side. Original Note: SS follow up: met with patient he is now agreeable to SNF. Patient wants his to select preferred SNF. Patient's , Tamara has selected [facility] as preferred SNF. Contacted Hannah at [facility], she informs she will review patient's insurance benefits and let me know if they can accept the patient.
--- NOTE | 2024-09-12 19:25 | PC.NURSE ---
[facility] here to transfer patient. Patient alert [facility] 15 no s/s of distress.
== END 2024-09-12 19:35 | disposition skilled nursing facility (03) | DRG 871 ==
LOC: SERX 13:27 → SERHOLD 14:41 → S2SX 09-05 11:54 → S3NX 09-06 18:00
PROVIDERS: Internal Medicine; Nurse Practitioner Primary Care; Student in an Organized Health Care Education/Training Program; Admitting Provider Student in an Organized Health Care Education/Training Program; Emergency Provider Emergency Medicine; PCP Family Medicine; Visit Provider Internal Medicine
DX: A41.89 Other specified sepsis (principal); J10.08 Influenza due to other identified influenza virus with other specified pneumonia; J96.01 Acute respiratory failure with hypoxia; I50.22 Chronic systolic (congestive) heart failure; N18.4 Chronic kidney disease, stage 4 (severe); I13.0 Hypertensive heart and chronic kidney disease with heart failure and stage 1 through stage 4 chronic kidney disease, or unspecified chronic kidney disease; N39.0 Urinary tract infection, site not specified; N17.9 Acute kidney failure, unspecified; I42.0 Dilated cardiomyopathy; J90 Pleural effusion, not elsewhere classified; I25.5 Ischemic cardiomyopathy; E03.9 Hypothyroidism, unspecified; K21.9 Gastro-esophageal reflux disease without esophagitis; I25.2 Old myocardial infarction; Z95.1 Presence of aortocoronary bypass graft; I25.10 Atherosclerotic heart disease of native coronary artery without angina pectoris; N40.0 Benign prostatic hyperplasia without lower urinary tract symptoms; K76.1 Chronic passive congestion of liver; B96.1 Klebsiella pneumoniae [K. pneumoniae] as the cause of diseases classified elsewhere; D63.1 Anemia in chronic kidney disease; I48.91 Unspecified atrial fibrillation; E83.39 Other disorders of phosphorus metabolism; B95.3 Streptococcus pneumoniae as the cause of diseases classified elsewhere
CPT/HCPCS: 36415; 36430; 36600; 71045; 71250; 76705; 80053; 80061; 80074; 80076; 80202; 80307; 81001; 82150; 82270; 82607; 82746; 82803; 82945; 83605; 83615; 83735; 83880; 84100; 84145; 84157; 84439; 84443; 84484; 85014; 85018; 85025; 85379; 85610; 85652; 85730; 86140; 86850; 86900; 86901; 86923; 87040; 87070; 87075; 87077; 87081; 87086; 87186; 87205; 87400; 87634; 87811; 89051; 89220; 92526; 92610; 93005; 93225; 93306; 94640; 94664; 96365; 96366; 96367; 96375; 97162; 99291; A9270; C1729; J0456; J0696; J1940; J1956; J2543; J3370; J3475; J3490; J7050; P9016; Q5105

== ENCOUNTER 2024-09-15 16:15 | Inpatient (IN) | payer MEDICARE, BC, SELFPAY ==
[2024-09-15] VITALS (22 sets, daily range): BP systolic 80–125; BP diastolic 44–77; PULSE 59–96; RESP 16–43; TEMP 36.9–38.1; O2SAT 89–98; BMI 24.1
--- NOTE | 2024-09-15 17:44 | EDNOTE_ITS ---
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, is got an AICD and he is a full code selective treatment Related Data Home Medications ?Medication ?Instructions ?Recorded ?Confirmed aspirin 81 mg tablet 81 mg PO DAILY 08/16/23 07/31/24 finasteride 5 mg tablet 5 mg PO DAILY 08/16/23 07/31/24 fluticasone propionate 50 1 spray intranasal BID 08/16/23 07/31/24 mcg/actuation nasal spray,suspension levothyroxine 25 mcg tablet 25 mcg PO DAILY 08/16/23 07/31/24 pantoprazole 40 mg tablet,delayed 40 mg PO DAILY 08/16/23 07/31/24 release tamsulosin 0.4 mg capsule 0.4 mg PO DAILY 08/16/23 07/31/24 hydroxyzine HCl 50 mg tablet 50 mg PO QID PRN 07/31/24 07/31/24 epoetin jackie-epbx 40,000 unit/mL 40,000 unit IV QWEEK 09/05/24 09/05/24 injection solution (Retacrit) Previous Rx's ?Medication ?Instructions ?Recorded acetaminophen 325 mg tablet 650 mg (2 x 325 mg) PO BID PRN 07/31/24 (Tylenol) pain #14 tabs sacubitril 24 mg-valsartan 26 mg 1 tab PO BID #60 tabs 09/08/24 tablet (Entresto) bumetanide 2 mg tablet 2 mg PO QDAY #30 tabs 09/12/24 carvedilol 3.125 mg tablet (Coreg) 3.125 mg PO BID #60 tabs 09/12/24 Allergies Allergy/AdvReac Type Severity Reaction Status Date / Time No Known Allergies Allergy Verified 09/04/24 10:08 Review of Systems Review of Systems Narrative Review of Systems: GEN: No fever, no chills, no weight loss EYES: No discharge, no visual changes, no pain HEENT: No ear pain, no congestion, no sore throat PULM: + shortness of breath, no cough, no congestion CV: No chest pain, no dyspnea on exertion, no palpitations GI: No nausea, no vomiting, no diarrhea, no pain, no constipation : No frequency, no urgency, no dysuria MUSC/SKEL: No joint pain, no back pain SKIN: No rash PSYCH: No hallucinations, no depression HEME/LYMPH: No easy bleeding or bruising tendencies NEURO: No weakness, no headache Past Medical History Past Medical History NEUROLOGIC: Positive Neurological Disorders; Negative Cerebrovascular Accident, Transient Ischemic Attacks (TIA), Dementia, Alzheimer's Disease, Parkinson's Disease, Brain Tumor, Meningitis, Seizures, Epilepsy, Multiple Sclerosis, Cerebral Palsy, Amyotrophic Lateral Sclerosis (ALS/Sharlene Gehrig's), Guillain-Seymour Syndrome, Spina Bifida, Paralysis, Peripheral Neuropathy, Stewart's Palsy, Subdural Hematoma, Migraine, Head Trauma, Spinal Cord Injury or Traumatic Brain Injury CARDIAC: Positive Cardiac Disorders, Myocardial Infarction, Cardiac Arrhythmia, Coronary Artery Disease, Hypercholesterolemia, Congestive Heart Failure, Valvular Heart Disease and Hypertension; Negative Atrial Fibrillation, Angina, Heart Murmur, Atherosclerotic Heart Disease, Peripheral Vascular Disease, Aneurysm, Congenital Heart Disease, Rheumatic Fever, Cardiomyopathy, Edema, Pericarditis, Cellulitis, Deep Vein Thrombosis, Hypotension or Varicose Veins RESPIRATORY: Positive Pneumonia and Sleep Apnea; Negative Chronic Obstructive Pulmonary Disease (COPD), Asthma, Bronchitis, Emphysema, Pulmonary Fibrosis, Cystic Fibrosis, Tuberculosis, Pulmonary Embolism or Pulmonary Edema GASTROINTESTINAL: Positive Gastrointestinal Disorders, Gall Bladder Disease and Gastroesophageal Reflux Disease; Negative Hepatitis, Cirrhosis, Pancreatitis, Celiac Disease, Gastrointestinal Bleed, Esophageal Varices, Joe's Esophagus, Colitis, Ulcerative Colitis, Diverticulitis, Diverticulosis, Ulcer, Colorectal Cancer, Irritable Bowel, Crohn's Disease, Obstructive Bowel, Hiatal Hernia, Hemorrhoids or Obesity GENITOURINARY: Positive Genitourinary Disorders, Renal Disease and Benign Prostatic Hyperplasia; Negative Kidney Stones, Polycystic Kidney Disease, Neurogenic Bladder, Inguinal Hernia, Dialysis or Prostate Cancer REPRODUCTIVE: Negative Testicular Cancer MUSCULOSKELETAL: Positive Musculoskeletal Disorders and Arthritis; Negative Muscular Dystrophy, Myasthenia Gravis, Marfan's Syndrome, Bone Cancer, Rheumatoid Arthritis, Osteoporosis, Degenerative Disk Disease, Gout, Scoliosis, Carpal Tunnel Syndrome, Fibromyalgia, Fractures, Degenerative Joint Disease, Osteomyelitis or Poliovirus ENT: Positive Cataracts; Negative Glaucoma, Blind, Retinal Detachment, Macular Degeneration, Ear Infection, Deafness, Head Trauma or Eye Prosthesis ENDOCRINE: Positive Hypothyroidism; Negative Endocrine Disorders, Diabetes Mellitus Type 1, Diabetes Mellitus Type 2, Hypoglycemia, Viral's Syndrome, [place]'s Disease, Hyperthyroidism, Parathyroid Disease, Pituitary Disease, Systemic Lupus Erythematosus, Syndrome of Inappropriate Antidiuretic Hormone (SIADH), Adrenal Disease or Graves' Disease HEMATOLOGIC: Positive Blood Disorders and Anemia; Negative Leukemia, Hemophilia, Thalassemia, Sickle Cell Disease or Clotting Problems PSYCHO/SOCIAL: Positive Anxiety; Negative Psychiatric Problems, Schizophrenia, Recreational Drug Use, Bipolar Disorder, Depression, Behavior Problems, Self-Mutilation, Attention Deficit Disorder, Attention Deficit Hyperactivity Disorder, Post Traumatic Stress Disorder or Eating Disorder OTHER HISTORY: Positive Hospitalization, Falls, Blood Transfusions, Chicken Pox, Measles and Cancer; Negative Autoimmune Disease, Down Syndrome, Autism, Developmental Delay, Shingles, Blood Transfusion Reaction, Anesthesia Reactions, Organ Transplant, Chemotherapy, Radiation Therapy, Hyperbaric Therapy, MRSA, VRSA, Vancomycin- Resistant Enterococci, Human Immunodeficiency Virus (HIV), Mumps, Rubella (Syriac Measles), Pertussis, Clostridium Difficile, Colorectal Cancer, Lung Cancer, Prostate Cancer or Testicular Cancer Family History FAMILY HISTORY: Positive Family Cancer and Family Surgery; Negative Family Psychiatric Problems, Family Respiratory Disorders, Family Cardiac Disorders, Family Gastrointestinal Problems or Family Anesthesia Reaction Surgical History SURGICAL: Positive Cardiac Surgery, Open Heart Surgery, Coronary Artery Bypass Graft, Coronary Stent, Cardiac Catheterization, Pacemaker, Angiogram, Auto Implanted Cardiovert Defib, Nose Surgery, Oral Surgery, Tonsillectomy, Abdominal Surgery and Vasectomy; Negative Valve Replacement, Vascular Surgery, Carotid Endarterectomy, Endocrine Surgery, Thyroidectomy, Ear Surgery, Tympanostomy Tube, Eye Surgery, Adenoidectomy, Cochlear Implant, Corneal Transplant, Throat Surgery, Tracheostomy, Gastric Bypass Surgery, Gastrostomy, Bowel Surgery, Nephrectomy, Transurethral Resection, Joint Replacement, Amputation, Open Reduction Internal Fixation, Arthroscopy, Neurologic Surgery, Brain Shunt or Organ Transplant Social History SMOKING STATUS: Never smoker SUBSTANCE USE: does not use ED Exam Narrative Physical exam: [General: Appears not in any acute distress Head normocephalic HEENT: Eyes pupils are PERRLA EOMs are intact mouth pink dry membranes uvula is midline swallow symmetrical. All other subsystems of HEENT are within acceptable limits Neck is supple nontender Chest equal chest rise nontender to palpation, center vertical surgical scar consistent with a CABG, AICD in the right anterior chest. No other gross abnormalities nontender to palpation. Respiratory: Tachypneic, expiratory crackles bibasilarly wheezing in the upper lobes. CV: Rate rhythm is regular borderline tachycardia, paced, no murmurs rubs or clicks Abdomen is soft nontender no masses positive bowel sounds all 4 quadrants Back: No CVA tenderness no spinous process tenderness from cervical spine thoracic and lumbar spine Skin: Intact no petechiae rash induration ulceration or crepitus Extremities: Moving all extremity against resistance cap refill less than 2 seconds neurosensory intact Neuro: Awake alert oriented x3 Glascow coma 15 no focal deficits] Course Quality Measures none Orders Category Date Time Status Bedside COVID-19 Antigen Test NOW Care 09/15/24 17:48 Active Bedside Influenza A&B Antigen Test NOW Care 09/15/24 17:48 Completed EKG (ED ONLY) *Do not use* NOW Care 09/15/24 17:[address] chest wo con Stat Exams 09/15/24 19:48 Taken EKG (ED Only) Stat Exams 09/15/24 17:48 Draft XR chest 1V Stat Exams 09/15/24 17:48 Completed ABG [Arterial Blood Gas] Stat Lab 09/15/24 19:48 Ordered ABG [Arterial Blood Gas] Stat Lab 09/15/24 19:59 Completed B-Type Natriuretic Peptide Stat Lab 09/15/24 18:17 Completed CBC Stat Lab 09/15/24 18:17 Completed Comprehensive Metabolic Panel Stat Lab 09/15/24 18:17 Completed Drug Screen,Urine Stat Lab 09/15/24 17:48 Ordered LDH (Lactate Dehydrogenase) Stat Lab 09/15/24 18:17 Completed Magnesium Stat Lab 09/15/24 18:17 Completed Partial Thromboplastin Time Stat Lab 09/15/24 18:17 Completed Prothrombin Time with INR Stat Lab 09/15/24 18:17 Completed Troponin I Stat Lab 09/15/24 18:17 Completed Urinalysis Stat Lab 09/15/24 17:48 Ordered Albuterol/Ipratr Rt Chio [Duoneb Rt Chio] Med 09/15/24 18:04 Discontinued 3 ml INH X1 ONE Sodium Chloride 0.9% 1000 ml [Ns] 1,000 ml Med 09/15/24 19:24 Discontinued IV 999 mls/hr cefTRIAXone/D5w 1gm IV premix [Rocephin/D5w 1gm IV Med 09/15/24 19:24 Discontinued premix] 50 ml IV X1 Vital Signs Vital signs: Vital Signs Temperature 98.4 F 09/15/24 16:46 Pulse Rate 59 L 09/15/24 16:46 Respiratory Rate 18 09/15/24 16:46 Blood Pressure 124/68 09/15/24 16:46 Pulse Oximetry (%) 98 09/15/24 16:46 Oxygen Delivery Method Nasal Cannula 09/15/24 16:46 Oxygen Flow Rate 8 09/15/24 16:46 [facility] Patient data External records reviewed:: [facility] previous records and EMS form Clinical information provided by:: patient and EMS Social determinants that could affect healthcare access:: none Patient has the following chronic illnesses:: Pleural effusion 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 Baseline artifact CBC shows no acute leukocytosis stable anemia no thrombocytopenia Coags within acceptable limits INR of 1.2 CMP shows sodium 136 potassium of 4.0 chloride 105 CO2 21.3 BUN of 61 creatinine 2.0 glucose of 97 Chest x-ray shows extensive bilateral pneumonia no mention of pleural effusion CT of the chest shows considerable consolidation left side, with small pleural effusion. Interpretation Summary: There is no evidence in the patient's literature that was brought from admission from [facility], that the patient is on oxygen however the patient is turned off 2 L nasal cannula decreases to 83%. The patient continues to have poor variation poor respiratory effort and he is confused and a poor historian. He was unsatisfactory report from EMS regarding the patient's condition at this time I am obligated to admit this patient for hypoxemia and pneumonia even though he is discharged from here on the for the same complaint will order an ABG and CT chest to determine if there is a new pleural effusion. On the admission and of September 12, the patient had 2800 mL of fluid tapped from his pleural effusion. Patient's case discussed with Dr. Estrada, resident who agrees patient needs admitted for Dr. Bautsita. Chest CT reviewed with Dr. Diaz who agrees to accept the patient for admission. Medications Medications considered but not ordered:: None Medication administrations:: Medication Administration History Discontinued Medications Albuterol/Ipratropium (Albuterol/Ipratropium (Duoneb) Rt Chio 3 Ml Nebu) 3 ml INH X1 ONE Stop: 09/15/24 18:05 Last Admin: 09/15/24 18:12 Dose: 3 ml Documented By: SILVER Sodium Chloride (Ns) 1,000 mls @ 999 mls/hr IV .Q1H1M ONE Stop: 09/15/24 20:24 Ceftriaxone Sodium/Dextrose (Rocephin/D5w 1gm Iv Premix) 50 mls @ 100 mls/hr IV X1 ONE Stop: 09/15/24 19:53 None Consultations Consultation(s) initiated? (list below): No Diagnosis Differential Diagnosis ED Complaint MDM: Hypoxemia shortness of breath pneumonia Most likely diagnosis given after review of the tests above:: Hypoxemia shortness of breath pneumonia Admission Indicated Admission indicated?: indicated Explain why admission is indicated or not indicated:: Quires further medical management Admission Request Was there a request for admission?: No Disposition Plan Disposition Plan: Admit Medical Decision Making Differential Diagnosis Differential Diagnosis: Hypoxemia shortness of breath pneumonia Lab Data 09/15/24 18:17 09/15/24 18:17 Labs: Lab Results 09/15/24 09/15/24 Range/Units 18:17 19:59 WBC 4.2 (3.8-10.6) Thou/mm3 RBC 2.63 L (4.50-5.90) Miln/mm3 Hgb 8.5 L (13.5-16.0) g/dL Hct 26.2 L (41.0-53.0) % MCV 100 (80-100) fL MCH 32.3 (25.0-35.0) pg MCHC 32.4 (31.0-37.0) g/dl RDW Std Deviation 72.6 H (35.1-43.9) fL Plt Count 133 L (140-440) Thou/mm3 Neut % (Auto) 69 (37-80) % Lymph % (Auto) 18 (10-50) % [place] % (Auto) 8 (0-12) % Eos % (Auto) 2 (0-10) % Baso % (Auto) 2 (0-2.5) % Neut # (Auto) 2.9 (1.8-7.7) Thou/mm3 Lymph # (Auto) 0.8 L (1.0-4.8) Thou/mm3 [place] # (Auto) 0.3 (0.0-0.8) Thou/mm3 Eos # (Auto) 0.1 (0.0-0.5) Thou/mm3 Baso # (Auto) 0.1 (0.0-0.2) Thou/mm3 Immature Gran # (Auto) 0.03 H (0.00-0.00) Thou/mm3 Absolute Nucleated RBC 0.00 (0.00-0.00) Thou/mm3 Immature Gran % 1 H (0-0) % Nucleated RBC % 0 (0) /100 WBC PT 13.4 H (9.0-12.2) Seconds INR 1.2 (0.9-1.3) APTT 22.0 (22.0-36.0) Seconds Puncture Site Right Radial ABG pH 7.48 H (7.35-7.45) ABG pCO2 27 L (32.0-48.0) mmHg ABG pO2 58 L* (83-108) mmHg ABG HCO3 20 (20-26) mEq/L ABG O2 Saturation 91 (91-98) % ABG Base Excess -3 (-3-3) FiO2 28 % Sodium 136 (136-145) mMol/L Potassium 4.0 (3.4-5.1) mMol/L Chloride 105 (98-107) mMol/L Carbon Dioxide 21.3 (20.0-31.0) mMol/L Anion Gap 10 (7-16) BUN 61 H (9-23) mg/dL Creatinine 2.0 H (0.6-1.3) mg/dL Estim Creat Clear Calc 24.3 L (>60) mL/min eGFR 32 L (60 - ) See Note BUN/Creatinine Ratio 31 H (12-20) Ratio Glucose 97 (74-106) mg/dL Calculated Osmolality 289 (275-295) Calcium 9.0 (8.3-10.6) mg/dL Corrected Calcium 9.6 (8.5-10.1) mg/dL Magnesium 1.7 (1.6-2.6) mg/dL Total Bilirubin 0.6 (0.3-1.2) mg/dL AST 20 (0-34) U/L ALT 59 H (10-49) U/L Alkaline Phosphatase 77 (46-116) U/L Lactate Dehydrogenase 158 (120-246) U/L Troponin I 0.113 H* (0.0-0.045) ng/mL B-Natriuretic Peptide > 3280 H* (0-100) pg/mL Total Protein 8.7 H (5.7-8.2) gm/dL Albumin 3.3 L (3.4-4.8) gm/dL Globulin 5.4 H (2.3-3.5) gm/dL Albumin/Globulin Ratio 0.6 L (1.2-2.2) Discharge Plan Plan Patient Disposition: Other Care w/in Hosp ([facility]) Patient condition on transfer: Stable Prescriptions/Referrals Prescriptions/Med Rec: No Action hydroxyzine HCl 50 mg tablet 50 mg PO QID PRN levothyroxine 25 mcg tablet 25 mcg PO DAILY Patient Comments: TAKE 1 TABLET BY MOUTH EVERY DAY pantoprazole 40 mg tablet,delayed release (DR/EC) 40 mg PO DAILY Patient Comments: TAKE 1 TABLET BY MOUTH EVERY DAY 30 MINUTES BEFORE BREAKFAST finasteride 5 mg tablet 5 mg PO DAILY tamsulosin 0.4 mg capsule 0.4 mg PO DAILY aspirin 81 mg Tablet 81 mg PO DAILY Hold Instructions: Resume on 01/11/24. fluticasone propionate 50 mcg/actuation [place],Suspension 1 spray INTRANASAL BID acetaminophen [Tylenol] 325 mg tablet 650 mg PO BID PRN (Reason: pain) Qty: 14 0RF Retacrit 40,000 unit/mL solution 40,000 unit IV QWEEK Patient Comments: INJECT 40,000 UNITS UNDER THE SKIN EVERY 7 DAYS sacubitril-valsartan [Entresto] 24-26 mg tablet 1 tab PO BID Qty: 60 2RF bumetanide 2 mg tablet 2 mg PO QDAY Qty: 30 0RF carvedilol [Coreg] 3.125 mg tablet 3.125 mg PO BID Qty: 60 0RF Rx Instructions: must administer with a meal/food Referrals: Nain (PCP),MD Ray [Primary Care Provider] - In 1 week Problem List Clinical Impression: Pneumonia, Hypoxemia, Pleural effusion Patient/Caregiver Discharge Instructions Print Language: Monegasque Stand Alone Forms: Ebony Award Info., Patient Portal Info Letter PA/REMOTE CONTROL ASSEMBLER Supervising Physician PA/REMOTE CONTROL ASSEMBLER Supervising Physician: Hamilton Chen ENP
--- NOTE | 2024-09-15 17:48 | EKG_ITS ---
[facility] Test Date: 2024-09-15 Pat Name: CHRISTIANE COTTRELL Department: Room: - Gender: Male Information Operator: : [id number] Requested By: Hamilton Maynard Order Number: [id number] Reading MD: Hamilton Maynard Measurements Intervals [place] Rate: 86 P: NE: QRS: 139 QRSD: 202 T: -40 QT: 465 QTc: 558 Interpretive Statements ELECTRONIC VENTRICULAR PACEMAKER ABNORMAL RHYTHM ECG Compared to ECG 09/08/2024 09:38:19 Atrial fibrillation no longer present Left bundle-branch block no longer present /store/S0/[id number].pdf
--- NOTE | 2024-09-15 17:48 | XR_ITS ---
Examination: AP chest single view Technique one AP portable upright chest single view Exam date and time: September 15, 2024 1807 hours INDICATIONS: Shortness of breath today COMPARISON: September 08, 2024 FINDINGS: Extensive bilateral lung opacity again noted Enlarged cardiac contour with prominent vascular congestion Cardiac leads stable position Moderate osteopenia IMPRESSION: Extensive bilateral pneumonia Mild to moderate associated heart failure
[2024-09-15] MEDS: ALBUTEROL/IPRATROPIUM (Duoneb) RT SOL 3 ML NEBU INH (18:12)
[2024-09-15 18:31] LABS: Basophils # (Auto) 0.1 Thou/mm3 (0.0-0.2); Basophils % (Auto) 2 % (0-2.5); Eosinophils # (Auto) 0.1 Thou/mm3 (0.0-0.5); Eosinophils % (Auto) 2 % (0-10); Hematocrit 26.2 % (41.0-53.0); Immature Granulocytes % (Auto) 1 % (0-0); Immature Granulocytes Auto 0.03 Thou/mm3 (0.00-0.00); Lymphocytes # (Auto) 0.8 Thou/mm3 (1.0-4.8); Lymphocytes % (Auto) 18 % (10-50); Mean Corpuscular HGB Conc 32.4 g/dl (31.0-37.0); Mean Corpuscular Hemoglobin 32.3 pg (25.0-35.0); Mean Corpuscular Volume 100 fL (80-100); Monocytes # (Auto) 0.3 Thou/mm3 (0.0-0.8); Monocytes % (Auto) 8 % (0-12); Neutrophils # (Auto) 2.9 Thou/mm3 (1.8-7.7); Neutrophils % (Auto) 69 % (37-80); Nucleated Red Blood Cell % 0 /100 WBC (0); Platelet Count 133 Thou/mm3 (140-440); RDW Standard Deviation 72.6 fL (35.1-43.9); Red Blood Count 2.63 Miln/mm3 (4.50-5.90); White Blood Count 4.2 Thou/mm3 (3.8-10.6)
[2024-09-15 18:46] LABS: Hemoglobin 8.5 g/dL (13.5-16.0)
[2024-09-15 18:49] LABS: INR 1.2 (0.9-1.3); Prothrombin Time 13.4 Seconds (9.0-12.2)
[2024-09-15 18:57] LABS: Alanine Aminotransferase 59 U/L (10-49); Albumin, Serum 3.3 gm/dL (3.4-4.8); Albumin/Globulin Ratio 0.6 (1.2-2.2); Alkaline Phosphatase 77 U/L (46-116); Anion Gap 10 (7-16); Aspartate Amino Transferase 20 U/L (0-34); BUN/Creatinine Ratio 31 Ratio (12-20); Bilirubin,Total 0.6 mg/dL (0.3-1.2); Blood Urea Nitrogen 61 mg/dL (9-23); Calcium (Corrected) 9.6 mg/dL (8.5-10.1); Carbon Dioxide 21.3 mMol/L (20.0-31.0); Chloride 105 mMol/L (98-107); Estimated Creatinine Clearance 24.3 mL/min (>60); Globulin 5.4 gm/dL (2.3-3.5); Glucose 97 mg/dL (74-106); LDH (Lactate Dehydrogenase) 158 U/L (120-246); Magnesium 1.7 mg/dL (1.6-2.6); Osmolality,Calculated 289 (275-295); Sodium 136 mMol/L (136-145); Total Protein 8.7 gm/dL (5.7-8.2); eGFR 32 See Note
[2024-09-15 18:59] LABS: Troponin I 0.113 ng/mL (0.0-0.045)
[2024-09-15 19:06] LABS: B-Type Natriuretic Peptide > 3280 pg/mL (0-100)
--- NOTE | 2024-09-15 19:48 | XR_ITS ---
Examination: CT chest, without intravenous contrast. Sagittal and coronal 2-D reconstructions. Exam date and time: September 15, 2024 2004 hrs. Indications: Shortness of breath difficulty breathing beginning several days ago Comparison: September 09, 2024 CTDI:vol (mGy) 14.5 DLP: (mGycm) 571 Technique: Multiple 3.0 mm axial sections of the chest to been obtained. Bone and lung density settings are obtained. Sagittal and coronal 2-D reconstructions have been obtained. Low dose protocols were performed. One or more of the following dose reduction techniques were used; automated exposure control, adjustment of the mA and/or KV according to patient size, use of iterative reconstruction technique. Findings: Thoracic aortic calcification Bilateral thyromegaly with calcified subcentimeter left thyroid nodules Main pulmonary artery measures 39 mm Heavy coronary artery calcification Moderate enlargement cardiac contour, prominent vascular congestion Extensive bilateral lung opacity, severe at the left lung base consistent with pneumonia Minimal right mild to moderate left pleural fluid Absent gallbladder Kidneys partially visualized with perinephric stranding AP dimension spleen 13 cm Impression: Mild heart failure Bilateral pneumonia, extensive in the left lung base Minimal right mild to moderate left pleural fluid
[2024-09-15 20:04] LABS: Base Excess -3 (-3-3); HCO3 20 mEq/L (20-26); Inspired Oxygen, FIO2 28 %; O2 Saturation 91 % (91-98); PCO2 27 mmHg (32.0-48.0); pH, Arterial 7.48 (7.35-7.45)
[2024-09-15 20:16] LABS: Allen Test Performed/OK; Puncture Site Right Radial
[2024-09-15 20:17] LABS: PO2 58 mmHg (83-108)
--- NOTE | 2024-09-15 22:10 | XR_ITS ---
Examination:Left hip AP, lateral, AP pelvis 3 views Technique: Hip AP lateral, AP pelvis, 3 views Exam date and time:September 15, 2024 1002 hrs. Indications: Patient fell today with injury to the left hip, left hip pain Findings: No left hip fracture or dislocation Right hip bones of the pelvis intact Impression: No acute hip or pelvic fracture Suggest follow-up AP pelvis in 1-2 days as clinically warranted.
--- NOTE | 2024-09-15 22:13 | PD.RESHP ---
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 Patient follows up with cardroom supervisor, Dr. Cristhian Sabillon. Follows up with matrix plater, Dr. Leonard. Previously followed up with heme oncologist Dr. Appiah According to patient's son, his oxygen tank ran out this morning and shortly after he developed shortness of breath at rest. Subsequently the ambulance was called to bring him into the emergency department. Patient also endorsed a 2 pillow orthopnea, PND with waking up at night intermittently short of breath and trace lower extremity swelling. Denied any chest pain/pressure, palpitations, loss of consciousness, vomiting, fever and diarrhea. Patient's son also denied any sick contacts, however he stated that at his previous residence at [facility], the lunch shabazz caters to about 120 residents and it is difficult to tell who is sick. Patient was recently hospitalized at [facility] from 09/04/2024 to 09/12/[address] [facility] acute rehab facility. During hospitalization patient was treated for acute respiratory failure with hypoxia secondary to influenza A infection, superimposed bacterial pneumonia, large left pleural effusion and heart failure with reduced ejection fraction. Patient's hospitalization was also complicated by strep pneumonia bacteremia and Klebsiella pneumonia UTI for which he was treated with a course of cefuroxime. He was also transfused 2 PRBCs for symptomatic anemia, his initial Hb on arrival was 6.4 which improved to 8.5 on discharge. 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 At the time patient was following up with Dr. Appiah, heme oncologist at [facility], however Dr. Appiah retired shortly after. Subsequently patient had a few visits with heme oncologist Dr. Garcia in [place]. Patient's son was not satisfied with level of care and they have a first visit appointment with heme oncologist Dr. Mace in the morning. Due to patient being currently hospitalized patient's son asked if Dr. Mace could see him in hospital. Of note both patient and his son endorsed that he fell from his chair yesterday and hit his left hip. Since then he has had intermittent 6/10 non-radiating pain at his left joint. He also endorsed a 50 pound weight loss over the past year. ED course: BP 120/66, pulse 92, RR 14, temp 100.5 F, SpO2 95% on 2 L O2 via NC. Labs significant for Hb 8.5, WBC .4.2, PLT 133, NA 136, K4, BUN 61, CR 2, BNP >3280, troponin 0.113, Mg 1.7. EKG significant for electronic ventricular paced rhythm, 86. No acute ST changes noted. Chest x-ray significant for bilateral consolidation, left pleural effusion, increased vascular markings. Chest CT significant for bilateral lung opacity, severe left lung base. Minimal right and left pleural effusion. In the ED patient received DuoNebs x 1, ceftriaxone 1 g IV x 1 and [place] 1 tab p.o. x 1 Patient will be admitted for treatment and management of acute respiratory failure with hypoxia secondary to left pleural effusion. Heme oncologist, Dr. Mace consulted and closely following the case. Appreciate recommendations. Review of Systems Review of Systems Narrative Review of Systems: GENERAL: Denies fever/chills or diaphoresis. HEENT: Denies headaches or visual changes. Denies discharge. Neuro: Denies unusual weakness or difficulty speaking. CARDIO: Denies chest pain or palpitations. PULM: As above GI: Denies abdominal pain, N/V/C/D. Reports having BMs. URO: Denies buring/itching/pain/urinary changes. MSK/EXT/SKIN: Denies issues/changes in upper or lower extremities, itchiness, or superficial pain. Has Left Hip pain PSYCH: Cooperative, pleasant mood & affect. The rest of the review of systems is otherwise negative. Past Medical History Past Medical History Comments PMH COMMENT: Past medical history: ? Dilated cardiomyopathy ? Chronic systolic congestive heart failure reduced EF [15-20%]. ? Coronary artery disease s/p triple-vessel CABG ? History of MRSA endocarditis ? Essential hypertension ? GERD ? BPH ? CKD stage IIIb ? Hypothyroidism ? 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 History of Influenza A Medication list: ? Cefuroxime 250 p.o. twice daily ? Entresto 1 tab p.o. twice daily ? Bumex 2 Mg p.o. daily ? Coreg 3.125 Mg p.o. twice daily ? Hydroxyzine 50 Mg p.o. 4 times daily as needed ? Levothyroxine 25 mcg p.o. daily ? Pantoprazole 40 Mg p.o. daily ? Finasteride 5 Mg p.o. daily ? Tamsulosin 0.4 Mg p.o. daily ? Aspirin 81 Mg p.o. daily ? Fluticasone nasal spray 1 spray twice daily ? Acetaminophen 650 Mg p.o. twice daily as needed ? Retacrit 40,000 units IV weekly Past surgical history: ? 3 vessel CABG 2018 ? Cholecystectomy 2022 - SCHOOL TREASURER?D 2023 Allergies: Nil Social history: Occupational History: Currently retired. 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 Has 4 Kids Tobacco use: Remote history of social smoking 50 years ago ETHO use: Denies Illicit drug use: Denies Social History Note: lives at [facility], Currently at [facility] acute Rehab Exam Vital Signs Temp Pulse Resp BP Pulse Ox O2 Del Method O2 Flow Rate 99.3 F 86 22 H 123/60 94 L Nasal Cannula 3 09/15/24 22:07 09/15/24 22:07 09/15/24 22:07 09/15/24 22:07 09/15/24 22:07 09/15/24 22:07 09/15/24 22:07 Narrative Exam Constitutional Alert, oriented x 3 and comfortable. Elderly male on O2 via NC, dry mucous membranes, talks with a stutter HEENT Vision grossly intact. Patent nares. Trachea midline Respiratory SCHOOL TREASURER?T noted right chest wall and reduced air entry, scattered rhonchi and crackles throughout all lung santoyo bilaterally Cardiovascular S1 and S2 audible, RRR. No murmurs carotid bruit. JVD not assessed Abdominal Soft and non tender to palpation in all quadrants. BS + Genitourinary No bladder tenderness, no flank pain. Normal to palpation. No scrotal edema Musculoskeletal Extremities tone within normal limits. Trace LE edema Neurological CN II - XII grossly intact. Extremity motor and sensation grossly intact. Skin Warm, dry and intact. No apparent lesions. Psychiatric Patient has good affect, is cooperative Results: Labs 09/15/24 18:17 09/15/24 18:17 Labs: Short CBC 09/15/24 Range/Units 18:17 WBC 4.2 (3.8-10.6) Thou/mm3 Hgb 8.5 L (13.5-16.0) g/dL Hct 26.2 L (41.0-53.0) % Plt Count 133 L (140-440) Thou/mm3 BMP 09/15/24 18:17 Sodium 136 Potassium 4.0 Chloride 105 Carbon Dioxide 21.3 BUN 61 H Creatinine 2.0 H Glucose 97 Calcium 9.0 Cardiac Enzymes 09/15/24 Range/Units 18:17 Troponin I 0.113 H* (0.0-0.045) ng/mL Liver Function 09/15/24 Range/Units 18:17 Total Bilirubin 0.6 (0.3-1.2) mg/dL AST 20 (0-34) U/L ALT 59 H (10-49) U/L Alkaline Phosphatase 77 (46-116) U/L Albumin 3.3 L (3.4-4.8) gm/dL ABG Interpretation ABG results: 09/15/24 19:59 ABG pH 7.48 H ABG pCO2 27 L ABG pO2 58 L* ABG HCO3 20 ABG O2 Saturation 91 ABG Base Excess -3 Quality Measures Quality Measures none Advance care planning discussed with:: patient and child Medications Home Medications and Allergies Home Medications ?Medication ?Instructions ?Recorded ?Confirmed ?Type aspirin 81 mg tablet 81 mg PO DAILY 08/16/23 07/31/24 History finasteride 5 mg tablet 5 mg PO DAILY 08/16/23 07/31/24 History fluticasone propionate 50 1 spray intranasal BID 08/16/23 07/31/24 History mcg/actuation nasal spray,suspension levothyroxine 25 mcg tablet 25 mcg PO DAILY 08/16/23 07/31/24 History pantoprazole 40 mg tablet,delayed 40 mg PO DAILY 08/16/23 07/31/24 History release tamsulosin 0.4 mg capsule 0.4 mg PO DAILY 08/16/23 07/31/24 History hydroxyzine HCl 50 mg tablet 50 mg PO QID PRN 07/31/24 07/31/24 History epoetin jackie-epbx 40,000 unit/mL 40,000 unit IV QWEEK 09/05/24 09/05/24 History injection solution (Retacrit) Allergies Allergy/AdvReac Type Severity Reaction Status Date / Time No Known Allergies Allergy Verified 09/04/24 10:08 Visit Medications Acetaminophen (Acetaminophen 325 Mg Tablet) 1,000 mg PO Q6H PRN PRN Reason: Fever >100.3 or pain Stop: 10/15/24 21:47 Hydrocodone Bitart/Acetaminophen (Hydrocodone/Apap 5/325 Tablet) 1 tab PO Q4HR PRN PRN Reason: PAIN SCALE 4-10(Mod-Sev Stop: 09/20/24 21:47 Aspirin (Aspirin Ec 81 Mg Tabec) 81 mg PO QDAY PRASANTH Stop: 10/16/24 08:59 Bumetanide (Bumetanide Inj 0.25 Mg/Ml Vial 4 Ml) 2 mg IVP QDAY PRASANTH Stop: 10/15/24 21:59 Finasteride (Finasteride 5 Mg Tablet) 5 mg PO QDAY PRASANTH Stop: 10/16/24 08:59 Fluticasone Propionate (Fluticasone Finesse [place] 0.05% 16 Gm Btl) 1 spray NASAL BID PRASANTH Stop: 10/15/24 21:59 Heparin Sodium (Porcine) (Heparin Sod Inj 5000 Unit/Ml Vial) 5,000 unit SC BID PRASANTH Stop: 09/29/24 21:59 Cefepime HCl 2 gm/ Sodium (Chloride) 50 mls @ 100 mls/hr IV DAILY PRASANTH Stop: 09/23/24 08:59 Magnesium Sulfate (Magnesium Sulfate Ivpb) 4 gm in 50 mls @ 12.5 mls/hr IV X1 ONE Stop: 09/16/24 02:11 Levalbuterol HCl (Levalbuterol Rt 0.63 Mg/3 Ml Nebu) 0.63 mg INH Q8HR PRASANTH Stop: 10/15/24 21:59 Levothyroxine Sodium (Levothyroxine Sodium 25 Mcg Tablet) 25 mcg PO ACBR PRASANTH Stop: 10/16/24 05:59 Ondansetron HCl (Ondansetron Inj 2 Mg/Ml Inj 2 Ml) 4 mg IV Q6H PRN; Protocol PRN Reason: NAUSEA OR VOMITING Stop: 10/15/24 21:47 Sennosides (Senna Tablet) 1 tab PO QDAY PRASANTH; Protocol Stop: 10/16/24 08:59 Discontinued Medications Albuterol/Ipratropium (Albuterol/Ipratropium (Duoneb) Rt Chio 3 Ml Nebu) 3 ml INH X1 ONE Stop: 09/15/24 18:05 Last Admin: 09/15/24 18:12 Dose: 3 ml Sodium Chloride (Ns) 1,000 mls @ 999 mls/hr IV .Q1H1M ONE Stop: 09/15/24 20:24 Ceftriaxone Sodium/Dextrose (Rocephin/D5w 1gm Iv Premix) 50 mls @ 100 mls/hr IV X1 ONE Stop: 09/15/24 19:53 Assessment & Plan Plan Patient is an 89-year-old male with past medical history significant for dilated cardiomyopathy, HFrEF [15-20%], CAD s/p triple-vessel CABG, history of MRSA endocarditis, essential hypertension, CKD stage IIIb, hypothyroidism and chronic transfusion dependent anemia, 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 Patient will be admitted for treatment and management of acute respiratory failure with hypoxia secondary to left pleural effusion. 1. Acute respiratory failure with hypoxia secondary to left pleural effusion 2. Likely hospital-acquired pneumonia 3. History of recent influenza A infection [09/04/2024] Patient presented with shortness of breath after his oxygen cylinder ran out. On exam patient had scattered rhonchi and crackles auscultated throughout all lung santoyo DDx: Hospital-acquired pneumonia, community-acquired pneumonia, aspiration pneumonia Chest x-ray significant for bilateral consolidation, left pleural effusion, increased vascular markings. Chest CT significant for bilateral lung opacity, severe left lung base. Minimal right and left pleural effusion. ABG: pH 7.48, pCO2 27, pO2 58, HCO3 21.1 Curb 65 : 2 points. Consider inpatient or outpatient treatment PSI/PORT : 197 points ; risk class V. Hospitalization recommended based on risk. Patient was recently discharged from hospital after 3 days ago and high risk for hospital-acquired pneumonia. Plan: - Supplemental O2 as necessary. - Sputum culture and Gram stain - RSV - CT guided Thoracentesis in the am - Pleural fluid analysis ordered, including LDH, amylase, glucose, cell count and culture, protein, albumin. - Serum LDH and Glucose - Levalbuterol nebs Q8 hourly - Fluticasone nasal spray 1 spray twice daily - Chest physiotherapy with Acapella every 8 hourly while awake - Started on cefepime 2 g IV daily [renally dosed] to cover for hospital-acquired pneumonia started on [09/16? 4. NSTEMI type I versus type II Patient denied any chest pain/pressure/palpitations. On admission troponin I elevated at 0.113 EKG significant for electronic ventricular paced rhythm, 86. No acute ST changes noted. Likely type II NSTEMI secondary to CKD, chronic systolic CHF and pneumonia. Plan: ? Repeat troponin I in the a.m. 5. Paroxysmal atrial fibrillation?resolved On previous admission patient developed 1 episode of atrial fibrillation EKG significant for electronic ventricular paced rhythm, 86. No acute ST changes noted. Patient not on any anticoagulation and rate controlled with Coreg 3.125 Mg p.o. twice daily. [id number]: 5 points; 7.2% stroke risk per year [age, CHF, HTN, CAD,] HAS-BLED : 4 points. High risk of major bleeding. [HTN, renal disease, age, ASA] Plan: ? Telemetry monitoring ? Coreg on hold for now due to levalbuterol nebs ? Will maintain K >3.5 [patient has CKD] and Mg >2 at all times to prevent any arrhythmias ? Consider cardiology consultation 6. Chronic systolic congestive heart failure [EF 15-20%] 7. Nonischemic cardiomyopathy Patient is chronically short of breath upon minimal exertion. Patient states that if he takes more than 15-20 steps he needs to stop and catch his breath before continuing. On exam patient has scattered rhonchi and crackles throughout all lung santoyo and trace lower extremity edema. Also had dry mucous membranes Transthoracic echocardiogram completed on 09/04/2024 findings include: Dilated ischemic cardiomyopathy with Severe systolic dysfunction. Akinesis apex, apical lateral. Hypokinesis septal and posterior wall. LV EF 15-20% Mild RV dilatation. Severe RV dysfunction. Estimated RVSP 51mmHg. RAP 15. Pacing wire present Dilated left atrium BNP >3280. On previous admission BNP was 5440. NYHA class III stage D Home diuretic Bumex 2 Mg p.o. daily Plan: ? 2G sodium restricted diet ? Daily weights ? Strict input output charting ? 1500 cc/day fluid restriction ? Diuretics on hold for now due to patient appearing clinically euvolemic and possibly mildly dehydrated. - Day team to decide when to resume Entresto and Coreg as part of GDMT. 8. Coronary artery disease s/p triple-vessel CABG 9. History of MRSA endocarditis 10. SCHOOL TREASURER-D in situ Patient's home medication aspirin 81 Mg p.o. daily Plan: ? Resume home medication aspirin 81 Mg p.o. daily 11. Essential hypertension On admission BP 120/66. Plan: ? Day team to decide on resumption of antihypertensives 12. CKD stage IIIb On admission CR 2. From chart review baseline appears to be between 1.5?2 Plan: ? Renally dose medication ? Avoid nephrotoxic agents 13. Hypothyroidism Home medication levothyroxine 25 mcg p.o. daily Plan: ? TSH ordered ? Resumed home medication levothyroxine 25 mcg p.o. daily 14. 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 Weight loss 16. Dysarthria Patient had bone marrow biopsy 01/09/2024 with findings suggestive of myelodysplastic neoplasm. Patient also endorsed approximately 50 pounds weight loss gradually over the past year. Unprovoked and no change in his appetite. Patient also recently developed a stutter since past 2 weeks. Will order COUNTER CONTROL OPERATOR evaluation. Patient had an appointment to see Dr. Mace tomorrow, however he is now hospitalized and asking if he can see him inpatient. Plan: ? COUNTER CONTROL OPERATOR evaluation for dysarthria ? Dr Mace, heme oncologist consulted. Appreciate recommendations 17. BPH Home medication finasteride 5 Mg p.o. daily and tamsulosin 0.4 Mg p.o. daily Plan: ? Resumed home medication finasteride 5 Mg p.o. daily ? Hold home home medication tamsulosin for now due to patient appearing dehydrated. Health maintenance: Disposition: IV antibiotics, Thoracentesis. Hematology consult. PT eval. COUNTER CONTROL OPERATOR eval Diet: Cardiac Lines: pIVs GI Prophylaxis: None Thrombo Prophylaxis: Heparin Code status: FULL CODE Plan of care discussed with Attending Dr. Lily Parker MD PGY 1 Attending Provider Attestation/Addendum I have examined the patient, reviewed labs and imaging findings, discussed the case with the resident(s), and reviewed entered orders. I agree with the plan of care as outlined in this note, with these additional summaries/recommendations: Patient is a 89-year-old male with a medical history of dilated cardiomyopathy with EF 20 to 25%, Atrial fibrillation, CAD, primary hypertension, CKD, renal mass, and chronic anemia requiring blood transfusions presented to [facility] emergency department on 09/15/2024 with chief complaint of shortness of breath. In the emergency room patient was found to have acute hypoxic respiratory failure and thus hospitalist team consulted for continuation of care. #Acute on chronic hypoxic respiratory failure: #Pleural effusion multifactorial secondary to bacterial pneumonia +/- pleural effusion. Does not appear to be in CHF exacerbation at this time. ABG reviewed. Continue supplemental oxygen and wean as tolerated. Order IR guided thoracentesis #?Hospital Acquired Pneumonia Possible imaging findings are residual from previous pna vs HAP vs asp pna Patient still endorses predictive cough although no leukocytosis CT Chest: Bilateral pneumonia, extensive left lung base Plan: We will cover for possible HAP with IV cefepime for now # Chronic systolic heart failure does not appear to be in acute exacerbation at this time. BNP >3280 (chronically elevated) Echocardiogram: Dilated ischemic cardiomyopathy with severe systolic dysfunction, EF 15 to 20% with severe right ventricular dysfunction. Plan: Hold Bumex for now as patient appears clinically dry. Will reinstitute as tolerated. Resume home goal-directed medical therapy # Troponinemia Most likely secondary to demand ischemia EKG: Electronic ventricular pacemaker, rate 86, no acute ST changes On admission troponin: 0.113 Plan: Trend troponin every 6 hours or until downtrend. Monitor on telemetry. # Paroxysmal atrial fibrillation Currently in sinus rhythm Plan: Continue home Coreg. Patient has elevated [id number] score but was deemed not a anticoagulation candidate given his transfusion dependent anemia and increased risk for life-threatening bleed. #Transfusion dependent anemia #Thrombocytopenia Patient has history of frequent blood transfusions and concern for myelodysplastic syndrome Hemoglobin 8.5 on admission with MCV 100 Plan: Etiology still unknown at this time. Per son patient has undergone bone biopsy in the past. Patient has appointment with viscosity inspector/oncologist Dr. Mace tomorrow and we will place consult for recommendations #CKD #Bilateral renal masses # Prostate nodule On admission creatinine 2.0 and BUN 61 which is improved from previous hospital admission Previous imaging showed mild bilateral renal parenchymal scar formation Plan: Patient has declined further workup of masses in the past. We will monitor for now and patient should follow-up outpatient with nephrology and urology. # Hypothyroidism Plan: Continue home levothyroxine Dr. Bautista
[2024-09-15] MEDS: cefTRIAXone/D5w 1gm IV premix 50 ML IV (22:35)
[2024-09-15] MEDS: HYDROcodone/APAP 5/325 TABLET 1 TAB PO (22:45)
[2024-09-15] MEDS: HEPARIN SOD INJ 5000 UNIT/ML VIAL SC (23:00)
[2024-09-15] MEDS: LEVALBUTEROL RT 0.63 MG/3 ML NEBU INH (23:49)
[2024-09-16] VITALS (21 sets, daily range): BP systolic 74–118; BP diastolic 36–67; PULSE 73–98; RESP 14–38; TEMP 36.2–37; O2SAT 83–100
[2024-09-16] MEDS: Magnesium Sulfate 4 GM Ivpb 4 GM/50 ML BAG IV (00:13)
[2024-09-16] MEDS: SODIUM CHLORIDE RT 10% 15 ML NEBU 5 ML INH (00:46)
[2024-09-16 06:16] LABS: Basophils # (Auto) 0.1 Thou/mm3 (0.0-0.2); Basophils % (Auto) 2 % (0-2.5); Eosinophils # (Auto) 0.1 Thou/mm3 (0.0-0.5); Eosinophils % (Auto) 2 % (0-10); Hematocrit 27.6 % (41.0-53.0); Hemoglobin 9.1 g/dL (13.5-16.0); Immature Granulocytes % (Auto) 1 % (0-0); Immature Granulocytes Auto 0.02 Thou/mm3 (0.00-0.00); Lymphocytes # (Auto) 0.7 Thou/mm3 (1.0-4.8); Lymphocytes % (Auto) 19 % (10-50); Mean Corpuscular Hemoglobin 32.6 pg (25.0-35.0); Mean Corpuscular Volume 99 fL (80-100); Monocytes # (Auto) 0.3 Thou/mm3 (0.0-0.8); Monocytes % (Auto) 8 % (0-12); Neutrophils # (Auto) 2.6 Thou/mm3 (1.8-7.7); Neutrophils % (Auto) 70 % (37-80); Nucleated Red Blood Cell % 0 /100 WBC (0); Platelet Count 128 Thou/mm3 (140-440); RDW Standard Deviation 75.6 fL (35.1-43.9); Red Blood Count 2.79 Miln/mm3 (4.50-5.90); White Blood Count 3.7 Thou/mm3 (3.8-10.6)
[2024-09-16] MEDS: LEVALBUTEROL RT 0.63 MG/3 ML NEBU INH ×3 (06:34→22:35)
[2024-09-16 06:58] LABS: Alanine Aminotransferase 54 U/L (10-49); Albumin, Serum 3.3 gm/dL (3.4-4.8); Albumin/Globulin Ratio 0.6 (1.2-2.2); Alkaline Phosphatase 76 U/L (46-116); Anion Gap 11 (7-16); Aspartate Amino Transferase 21 U/L (0-34); BUN/Creatinine Ratio 31 Ratio (12-20); Bilirubin,Total 0.5 mg/dL (0.3-1.2); Blood Urea Nitrogen 58 mg/dL (9-23); Calcium 9.2 mg/dL (8.3-10.6); Calcium (Corrected) 9.8 mg/dL (8.5-10.1); Chloride 106 mMol/L (98-107); Creatinine (Component) 1.9 mg/dL (0.6-1.3); Estimated Creatinine Clearance 25.6 mL/min (>60); Globulin 5.4 gm/dL (2.3-3.5); Glucose 92 mg/dL (74-106); LDH (Lactate Dehydrogenase) 189 U/L (120-246); Magnesium 2.6 mg/dL (1.6-2.6); Osmolality,Calculated 291 (275-295); Phosphorous 4.7 mg/dL (2.4-5.1); Sodium 138 mMol/L (136-145); Thyroid Stimulating Hormone 6.18 uIU/mL (0.55-4.78); Total Protein 8.7 gm/dL (5.7-8.2); eGFR 34 See Note
--- NOTE | 2024-09-16 07:10 | PC.NURSE ---
notified Gretchen EUGENE of incorrect order placed. Procedure to be performed under US guide. Per Gretchen RN will have order changed.
[2024-09-16 07:12] LABS: Troponin I 0.118 ng/mL (0.0-0.045)
[2024-09-16] MEDS: FINASTERIDE 5 MG TABLET PO (08:37)
[2024-09-16] MEDS: CEFEPIME INJ 2 GM in SODIUM CHLORIDE 0.9% 50 ML IV (08:37)
[2024-09-16] MEDS: SENNA TABLET 1 TAB PO (08:37)
--- NOTE | 2024-09-16 11:42 | XR_ITS ---
Examination: Ultrasound right hemithorax Ultrasound left hemithorax Exam date and time: September 16, 2024 1408 hours INDICATIONS: Shortness of breath this week, heart failure, bilateral pleural fluid on CT chest September 15, 2024 technique an findings: Grayscale sonographic images hemithoraces Minimal right mild left pleural fluid IMPRESSION: Minimal right mild left pleural fluid
--- NOTE | 2024-09-16 12:54 | PD.RESPRO ---
Documentation for date of: 09/16/24 Subjective Subjective Interval history: Patient was seen at bedside this morning. No overnight events. Patient was having increased work of breathing and he was very short of breath, but was oxygenating well on OxyMask at 9 L. Ordered ultrasound-guided thoracentesis given the patient has pleural effusion. No other complaints at this time. Exam Vital Signs Temp Pulse Resp BP Pulse Ox O2 Del Method O2 Flow Rate 97.1 F 90 26 H 107/55 L 95 Nasal Cannula 6 09/16/24 04:00 09/16/24 12:00 09/16/24 06:37 09/16/24 04:00 09/16/24 06:37 09/16/24 04:00 09/16/24 06:37 Narrative Exam General: A/O x3,mild respiratory distress, elderly male Eyes: PERRL, EOMI. anicteric, vision grossly intact. Ears: No ear pain, no ear discharge, Hearing grossly intact. Nose: No nasal discharge. Mouth/Throat: Dry mucous membranes, no redness, no lesions. Neck: Neck supple, non-tender, no cervical lymphadenopathy. Lungs: Crackles Upper lobes and decreased in SHAHEEN Lower lobes, No accessory muscle use. Cardio: Normal S1/S2, regular rhythm, no murmurs, no JVD Abdomen: Soft, non-tender, no palpable masses, peristalsis present, no guarding or rebound. Extremities: Symmetrical, no significant deformities, no peripheral edema, non-tender, peripheral pulses presents. Skin: No rashes, no lesions, warm to touch. Neuro: No focal neurological deficits. motor and sensory intact Psych: Cooperative, appropriate mood and effect. Objective Labs 09/16/24 05:32 09/16/24 05:32 Labs: Laboratory Results - last 24 hr 09/15/24 09/15/24 09/16/24 18:17 19:59 05:32 WBC 4.2 3.7 L RBC 2.63 L 2.79 L Hgb 8.5 L 9.1 L Hct 26.2 L 27.6 L MCV 100 99 MCH 32.3 32.6 MCHC 32.4 33.0 RDW Std Deviation 72.6 H 75.6 H Plt Count 133 L 128 L Neut % (Auto) 69 70 Lymph % (Auto) 18 19 [place] % (Auto) 8 8 Eos % (Auto) 2 2 Baso % (Auto) 2 2 Neut # (Auto) 2.9 2.6 Lymph # (Auto) 0.8 L 0.7 L [place] # (Auto) 0.3 0.3 Eos # (Auto) 0.1 0.1 Baso # (Auto) 0.1 0.1 Immature Gran # (Auto) 0.03 H 0.02 H Absolute Nucleated RBC 0.00 0.00 Immature Gran % 1 H 1 H Nucleated RBC % 0 0 PT 13.4 H INR 1.2 APTT 22.0 Puncture Site Right Radial ABG pH 7.48 H ABG pCO2 27 L ABG pO2 58 L* ABG HCO3 20 ABG O2 Saturation 91 ABG Base Excess -3 FiO2 28 Sodium 136 138 Potassium 4.0 4.0 Chloride 105 106 Carbon Dioxide 21.3 21.0 Anion Gap 10 11 BUN 61 H 58 H Creatinine 2.0 H 1.9 H Estim Creat Clear Calc 24.3 L 25.6 L eGFR 32 L 34 L BUN/Creatinine Ratio 31 H 31 H Glucose 97 92 Calculated Osmolality 289 291 Calcium 9.0 9.2 Corrected Calcium 9.6 9.8 Phosphorus 4.7 Magnesium 1.7 2.6 Total Bilirubin 0.6 0.5 AST 20 21 ALT 59 H 54 H Alkaline Phosphatase 77 76 Lactate Dehydrogenase 158 189 Troponin I 0.113 H* 0.118 H* B-Natriuretic Peptide > 3280 H* Total Protein 8.7 H 8.7 H Albumin 3.3 L 3.3 L Globulin 5.4 H 5.4 H Albumin/Globulin Ratio 0.6 L 0.6 L TSH 6.18 H ABG Interpretation ABG results: 09/15/24 19:59 ABG pH 7.48 H ABG pCO2 27 L ABG pO2 58 L* ABG HCO3 20 ABG O2 Saturation 91 ABG Base Excess -3 Quality Measures Quality Measures none Advance care planning discussed with:: patient Assessment & Plan Assessment Current Active Medications: Generic Name Dose Route Start Last Admin Trade Name Freq PRN Reason Stop Dose Admin Acetaminophen 1,000 mg 09/15/24 21:48 Acetaminophen 325 Mg Tablet PO 10/15/24 21:47 Q6H PRN Fever >100.3 or pain Hydrocodone Bitart/Acetaminophen 1 tab 09/15/24 21:48 09/15/24 22:45 Hydrocodone/Apap 5/325 Tablet PO 09/20/24 21:47 1 tab Q4HR PRN Administration PAIN SCALE 4-10(Mod-Sev Aspirin 81 mg 09/16/24 09:00 09/16/24 08:34 Aspirin Ec 81 Mg Tabec PO 10/16/24 08:59 Not Given QDAY PRASANTH Bumetanide 2 mg 09/15/24 22:00 09/16/24 02:53 Bumetanide Inj 0.25 Mg/Ml Vial 4 Ml IVP 10/15/24 21:59 Not Given QDAY PRASANTH Finasteride 5 mg 09/16/24 09:00 09/16/24 08:37 Finasteride 5 Mg Tablet PO 10/16/24 08:59 5 mg QDAY PRASANTH Administration Fluticasone Propionate 1 spray 09/15/24 22:00 09/16/24 02:52 Fluticasone Finesse [place] 0.05% 16 Gm Btl NASAL 10/15/24 21:59 Not Given BID PRASANTH Heparin Sodium (Porcine) 5,000 unit 09/15/24 22:00 09/16/24 08:34 Heparin Sod Inj 5000 Unit/Ml Vial SC 09/29/24 21:59 Not Given BID PRASANTH Hydroxyzine HCl 50 mg 09/15/24 22:55 Hydroxyzine Hcl 25 Mg Tablet PO 10/15/24 22:59 QID PRN anxiety or itching Cefepime HCl 2 gm/ Sodium 50 mls @ 100 mls/hr 09/16/24 09:00 09/16/24 08:37 Chloride IV 09/23/24 08:59 100 mls/hr DAILY PRASANTH Administration Levalbuterol HCl 0.63 mg 09/15/24 22:00 09/16/24 06:34 Levalbuterol Rt 0.63 Mg/3 Ml Nebu INH 10/15/24 21:59 0.63 mg Q8HR PRASANTH Administration Levothyroxine Sodium 25 mcg 09/16/24 06:00 09/16/24 05:01 Levothyroxine Sodium 25 Mcg Tablet PO 10/16/24 05:59 Not Given ACBR PRASANTH Ondansetron HCl 4 mg 09/15/24 21:48 Ondansetron Inj 2 Mg/Ml Inj 2 Ml IV 10/15/24 21:47 Q6H PRN NAUSEA OR VOMITING Protocol Sennosides 1 tab 09/16/24 09:00 09/16/24 08:37 Senna Tablet PO 10/16/24 08:59 1 tab QDAY PRASANTH Administration Protocol Plan 89-year-old male with extensive past medical history of HFrEF (20 to 25% EF 2022), ischemic cardiomyopathy, CAD s/p CABG, MRSA bacteremia, defibrillator, hypertension, GERD, BPH, CKD stage IV, hypothyroidism, chronic anemia requiring multiple blood transfusion, and potential myelodysplastic syndrome was admitted to the hospital on 09/15/2024 due to acute hypoxic respiratory failure likely 2/2 pleural effusion likely 2/2 HAP. #Acute hypoxic respiratory failure likely secondary to #SHAHEEN pleural effusion #Hospital-acquired pneumonia -Patient was recently discharged from hospital due to similar Sx - Patient came in from SNF after O2 dropped and became SOB. -Facility ran out of O2 in patient's O2 tank and eventually patient became hypoxic -Chest x-ray significant for Extensive bilateral pneumonia and Mild to moderate associated heart failure -Chest CT significant for Bilateral pneumonia, extensive in the left lung base, Minimal right pleural effusion and mild to moderate left pleural fluid -ABG showed pH 7.48, pCO2 27, pO2 58, HCO3 21.1 Plan: -Continue cefepime 2g IV qday [09/09/2024-] -Pending US thoracentesis -Pending pleural culture and cytology ? Will continue to monitor #NSTEMI likely type II in the setting of hypoxia -Patient denies any chest pain at this time - Troponins initially 0.115 and uptrended to 0.118 Plan: - Trend troponins -Will continue to monitor #Acute on chronic anemia likely secondary to #Potential myelodysplastic syndrome ? Pathology report from 2023 that showed potential myelodysplastic syndrome ? Patient does follow-up with hematology as an oncologist outpatient and was supposed to have an appointment today ?Patient initial hemoglobin was 9.1 Plan: ? Bleeding precautions -Transfuse if Hgb less than 8 -Crm Marketing Executive consulted, appreciate recommendations ? Will continue to monitor #HFrEF (15 to 20% EF 08/2023) #CAD s/p CABG #Hx of ischemic cardiomyopathy ? Patient does have some history of HFrEF with an ejection fraction of 15-20% ? BNP greater than 3280, likely due to entresto Plan: ? Bumex on Hold for now in the setting of low BP - Fluid restrictions ? Daily weights ? Will continue to monitor #Transaminitis ?Patient's AST 54 -Priorly seen in hospital and had transaminitis which resolved Plan: ? Will continue to monitor #CKD stage IIIb -Base line Cr around 2 -Cr to 1.9 today ? Patient follows up outpatient with arm rest builder Plan: ? Avoid nephrotoxic agents ? Renally dose medications ? Will continue to monitor #Hx of A-fib ? EKG ordered showed paced rhythm Plan: ? Will continue to monitor and consider cardio consult if develops a-fib #Hx of hypothyroidism ? Will continue patient's levothyroxine 25 mcg p.o. #Hx of hypertension ?Patient's blood pressure has been soft therefore will hold off on any antihypertensive medication for now. #Hx of BPH ?Will continue finasteride 5 mg daily #Hx of GERD ?Restarted pantoprazole Disposition: Patient seen in telemetry due to acute hypoxic respiratory failure likely secondary to pleural effusion likely secondary to community-acquired pneumonia. Diet: Cardiac/renal GI prophylaxis: protonix DVT prophylaxis: SCDS in the setting of anemia Code: Full Case disclosed with Attending Dr. Lopez and My senior Dr. Williamson PGY2. Kevin Hodge PGY1 Senior Resident Attestation: The patient is an 89-year-old male with significant past medical history of HFrEF 15 to 20%, on August 2024, ischemic went out of oxygen. Cardiomyopathy, CAD s/p CABG, MRSA bacteremia, ICD placement, hypertension, GERD, BPH, CKD, hypothyroidism, chronic anemia secondary to possible myelo dysplastic syndrome was admitted to hospital on 09/15/2024 with chief complaint of shortness of breath as his facility oxygen finished. This morning, doing fairly well, and was saturating 94% on 7 L oxy mask. He is oxygen saturation dropped down to 82% while taking out oxygen max. Later his oxygenation improved to 98% on 4 L NC. His labs are basically at baseline. And his troponins trended down. Pleural drainage was attempted, but was unsuccessful due to minimal by lateral pleural fluid or effusion. We will continue the patient on cefepime 2 g IV daily, renally dosed, continue with home levothyroxine 25 mcg's severe, finasteride 5 Mg daily, and pantoprazole 40 Mg daily. I discussed with and supervised the web marketing intern physician involved in the care of this patient. I personally saw and examined the patient and discussed the assessment and plan with the entire medicine team, including my attending. I agree with the assessment and plan as documented above. Rusty Williamson MD PGY2 Internal Medicine
--- NOTE | 2024-09-16 15:12 | PC.SS ---
Rounding Note: Plan is for the patient to undergo a thoracentesis today.
[2024-09-16] MEDS: HEPARIN SOD INJ 5000 UNIT/ML VIAL SC (20:11)
[2024-09-16] MEDS: FLUTICASONE NAS SPRAY 0.05% 16 GM BTL 1 SPRAY NASAL (20:12)
[2024-09-16 20:40] LABS: Respiratory Syncytial Virus Ag Positive (Negative)
[2024-09-16 21:32] LABS: Troponin I 0.099 ng/mL (0.0-0.045)
[2024-09-16 21:35] LABS: Collection Type, Urine Clean Catch
[2024-09-16 21:40] LABS: Bilirubin,Urine Negative (Negative); Blood,Urine Negative (Negative); Clarity,Urine Clear (Clear/Hazy); Color,Urine Lt-Yellow (Lt Yel-Yel); Glucose, Urine Negative (Negative); Ketones,Urine Negative (Negative); Leukocyte Esterase,Urine Negative (Negative); Nitrite,Urine Negative (Negative); Protein,Urine 1+ (Neg - Trace); RBC,Urine 1 /hpf (0-3); Specific Gravity,Urine 1.016 (1.001-1.035); Squamous Epithelial Cell,Urine < 1 /hpf (0-5); Urobilinogen,Urine Negative mg/dL (0.0-1.0); WBC,Urine 2 /hpf (0-5)
[2024-09-16 22:17] LABS: Amphetamine/Methamp Scrn,U Negative (Negative); Barbiturate Screen,Urine Negative (Negative); Benzodiazepines Screen,Urine Negative (Negative); Benzoylecgonine Screen, Ur Negative (Negative); Fentanyl Screen,Urine Negative (Negative); Opiate Screen,Urine Positive (Negative); THC Screen,Urine Negative (Negative)
[2024-09-17] VITALS (11 sets, daily range): BP systolic 93–109; BP diastolic 46–63; PULSE 56–88; RESP 14–34; TEMP 36.2–37.2; O2SAT 93–99; BMI 22.2; BMI 13.0
[2024-09-17] MEDS: LEVOTHYROXINE SODIUM 25 MCG TABLET PO (05:48)
[2024-09-17 06:13] LABS: Basophils # (Auto) 0.1 Thou/mm3 (0.0-0.2); Basophils % (Auto) 2 % (0-2.5); Eosinophils # (Auto) 0.1 Thou/mm3 (0.0-0.5); Eosinophils % (Auto) 2 % (0-10); Hematocrit 22.6 % (41.0-53.0); Immature Granulocytes % (Auto) 1 % (0-0); Immature Granulocytes Auto 0.02 Thou/mm3 (0.00-0.00); Lymphocytes # (Auto) 0.7 Thou/mm3 (1.0-4.8); Lymphocytes % (Auto) 18 % (10-50); Mean Corpuscular HGB Conc 32.7 g/dl (31.0-37.0); Mean Corpuscular Hemoglobin 32.6 pg (25.0-35.0); Mean Corpuscular Volume 100 fL (80-100); Monocytes # (Auto) 0.2 Thou/mm3 (0.0-0.8); Monocytes % (Auto) 6 % (0-12); Neutrophils # (Auto) 2.9 Thou/mm3 (1.8-7.7); Neutrophils % (Auto) 72 % (37-80); Nucleated Red Blood Cell % 0 /100 WBC (0); Platelet Count 129 Thou/mm3 (140-440); RDW Standard Deviation 73.5 fL (35.1-43.9); Red Blood Count 2.27 Miln/mm3 (4.50-5.90)
[2024-09-17 06:19] LABS: Hemoglobin 7.4 g/dL (13.5-16.0)
[2024-09-17 06:30] LABS: Alanine Aminotransferase 44 U/L (10-49); Albumin, Serum 2.9 gm/dL (3.4-4.8); Albumin/Globulin Ratio 0.6 (1.2-2.2); Alkaline Phosphatase 67 U/L (46-116); Anion Gap 9 (7-16); Aspartate Amino Transferase 24 U/L (0-34); BUN/Creatinine Ratio 28 Ratio (12-20); Bilirubin,Total 0.4 mg/dL (0.3-1.2); Blood Urea Nitrogen 51 mg/dL (9-23); Calcium 8.7 mg/dL (8.3-10.6); Calcium (Corrected) 9.6 mg/dL (8.5-10.1); Carbon Dioxide 23.3 mMol/L (20.0-31.0); Chloride 106 mMol/L (98-107); Creatinine (Component) 1.8 mg/dL (0.6-1.3); Estimated Creatinine Clearance 26.3 mL/min (>60); Globulin 4.8 gm/dL (2.3-3.5); Glucose 99 mg/dL (74-106); Magnesium 2.2 mg/dL (1.6-2.6); Osmolality,Calculated 289 (275-295); Phosphorous 3.7 mg/dL (2.4-5.1); Potassium 3.8 mMol/L (3.4-5.1); Sodium 138 mMol/L (136-145); Total Protein 7.7 gm/dL (5.7-8.2); eGFR 36 See Note
[2024-09-17] MEDS: LEVALBUTEROL RT 0.63 MG/3 ML NEBU INH ×3 (06:34→22:25)
--- NOTE | 2024-09-17 07:20 | PC.NURSE ---
Dr. Mace at bedside, aware of pt. lab values this AM.
--- NOTE | 2024-09-17 08:30 | PC.SS ---
Delayed entry from 09-17-24: FIELD STAFF MANAGER conducted phone contact with the patient?s son, Dustin Wyatt Jr. ; to conduct initial assessment and to discuss discharge plan. Prior to admission the patient was a resident from [facility]. Patient utilizes a walker to assist with ambulation. Patient utilizes home oxygen. Patient requires assistance with completion of ADL?s. The patient?s medical surrogate decision maker is son, Dustin Wyatt Jr. Patient?s PCP is Dr. Gillette. Dr. Leonard is the patient?s pay station department manager. Dr. Paniagua is the patient?s commercial front load operator. Patient does not participate with dialysis. Plan is for the patient to discharge to [facility]. The patient will have private caregiver services in place upon discharge. Family requesting patient to be re-established with [facility] health services. Family will provide transportation on behalf of the patient. No discharge needs identified by the patient. No further intervention required at this time, family welfare social work professor will be available to address any further concerns. Next of Kin: Dustin Wyatt Jr. D/C Plan: Home
[2024-09-17] MEDS: SENNA TABLET 1 TAB PO (09:53)
[2024-09-17] MEDS: FINASTERIDE 5 MG TABLET PO (09:53)
[2024-09-17] MEDS: PANTOPRAZOLE INJ 40 MG VIAL IV (09:54)
[2024-09-17] MEDS: CEFEPIME INJ 2 GM in SODIUM CHLORIDE 0.9% 50 ML IV (09:55)
[2024-09-17] MEDS: HEPARIN SOD INJ 5000 UNIT/ML VIAL SC ×2 (09:55→20:13)
[2024-09-17 14:23] LABS: Hematocrit 24.7 % (41.0-53.0)
--- NOTE | 2024-09-17 16:06 | ESPR_ITS ---
Documentation for date of: 09/17/24 Subjective Subjective Interval history: The patient reported doing well. He reported he is ready for PT eval. He denied any SOB, chest pain, dizziness or any LL edema. Exam Vital Signs Temp Pulse Resp BP Pulse Ox O2 Del Method O2 Flow Rate 98.6 F 74 34 H 108/56 L 99 Nasal Cannula 4 09/17/24 12:00 09/17/24 14:44 09/17/24 14:44 09/17/24 13:28 09/17/24 14:44 09/17/24 12:00 09/17/24 14:44 Narrative Exam General: A/O x3,mild respiratory distress, elderly male Eyes: PERRL, EOMI. anicteric, vision grossly intact. Ears: No ear pain, no ear discharge, Hearing grossly intact. Nose: No nasal discharge. Mouth/Throat: Dry mucous membranes, no redness, no lesions. Neck: Neck supple, non-tender, no cervical lymphadenopathy. Lungs: Mild lt lower lobes faint cracles, No accessory muscle use. Cardio: Normal S1/S2, regular rhythm, no murmurs, no JVD Abdomen: Soft, non-tender, no palpable masses, peristalsis present, no guarding or rebound. Extremities: Symmetrical, no significant deformities, no peripheral edema, non- tender, peripheral pulses presents. Skin: No rashes, no lesions, warm to touch. Neuro: No focal neurological deficits. motor and sensory intact Psych: Cooperative, appropriate mood and effect. Objective Labs 09/18/24 05:53 09/18/24 05:53 Labs: Laboratory Results - last 24 hr 09/16/24 09/16/24 09/16/24 15:14 20:05 20:20 WBC RBC Hgb Hct MCV MCH MCHC RDW Std Deviation Plt Count Neut % (Auto) Lymph % (Auto) [place] % (Auto) Eos % (Auto) Baso % (Auto) Neut # (Auto) Lymph # (Auto) [place] # (Auto) Eos # (Auto) Baso # (Auto) Immature Gran # (Auto) Absolute Nucleated RBC Immature Gran % Nucleated RBC % Sodium Potassium Chloride Carbon Dioxide Anion Gap BUN Creatinine Estim Creat Clear Calc eGFR BUN/Creatinine Ratio Glucose Calculated Osmolality Calcium Corrected Calcium Phosphorus Magnesium Total Bilirubin AST ALT Alkaline Phosphatase Troponin I 0.110 H* Total Protein Albumin Globulin Albumin/Globulin Ratio Ur Collection Type Clean Catch Urine Color Lt-Yellow Urine Clarity Clear Urine pH 5.0 Ur Specific [place] 1.016 Urine Protein 1+ A Urine Glucose (UA) Negative Urine Ketones Negative Urine Blood Negative Urine Nitrite Negative Urine Bilirubin Negative Urine Urobilinogen (Auto) Negative Ur Leukocyte Esterase Negative Urine RBC 1 Urine WBC 2 Ur Squamous Epith Cells < 1 Urine Bacteria None Urine Opiates Screen Positive A Urine Fentanyl Screen Negative Ur Barbiturates Screen Negative U Amphetamin/Meth Scrn Negative U Benzodiazepines Scrn Negative U Cocaine Metab Screen Negative U Marijuana (THC) Screen Negative RSV Rapid Positive A 09/16/24 09/17/24 09/17/24 20:48 05:13 14:10 WBC 4.0 RBC 2.27 L Hgb 7.4 L 8.0 L Hct 22.6 L 24.7 L MCV 100 MCH 32.6 MCHC 32.7 RDW Std Deviation 73.5 H Plt Count 129 L Neut % (Auto) 72 Lymph % (Auto) 18 [place] % (Auto) 6 Eos % (Auto) 2 Baso % (Auto) 2 Neut # (Auto) 2.9 Lymph # (Auto) 0.7 L [place] # (Auto) 0.2 Eos # (Auto) 0.1 Baso # (Auto) 0.1 Immature Gran # (Auto) 0.02 H Absolute Nucleated RBC 0.00 Immature Gran % 1 H Nucleated RBC % 0 Sodium 138 Potassium 3.8 Chloride 106 Carbon Dioxide 23.3 Anion Gap 9 BUN 51 H Creatinine 1.8 H Estim Creat Clear Calc 26.3 L eGFR 36 L BUN/Creatinine Ratio 28 H Glucose 99 Calculated Osmolality 289 Calcium 8.7 Corrected Calcium 9.6 Phosphorus 3.7 Magnesium 2.2 Total Bilirubin 0.4 AST 24 ALT 44 Alkaline Phosphatase 67 Troponin I 0.099 H* Total Protein 7.7 Albumin 2.9 L Globulin 4.8 H Albumin/Globulin Ratio 0.6 L Ur Collection Type Urine Color Urine Clarity Urine pH Ur Specific [place] Urine Protein Urine Glucose (UA) Urine Ketones Urine Blood Urine Nitrite Urine Bilirubin Urine Urobilinogen (Auto) Ur Leukocyte Esterase Urine RBC Urine WBC Ur Squamous Epith Cells Urine Bacteria Urine Opiates Screen Urine Fentanyl Screen Ur Barbiturates Screen U Amphetamin/Meth Scrn U Benzodiazepines Scrn U Cocaine Metab Screen U Marijuana (THC) Screen RSV Rapid ABG Interpretation ABG results: 09/15/24 19:59 ABG pH 7.48 H ABG pCO2 27 L ABG pO2 58 L* ABG HCO3 20 ABG O2 Saturation 91 ABG Base Excess -3 Quality Measures Quality Measures none Advance care planning discussed with:: patient Assessment & Plan Assessment Current Active Medications: Generic Name Dose Route Start Last Admin Trade Name Freq PRN Reason Stop Dose Admin Acetaminophen 1,000 mg 09/15/24 21:48 Acetaminophen 325 Mg Tablet PO 10/15/24 21:47 Q6H PRN Fever >100.3 or pain Protocol Hydrocodone Bitart/Acetaminophen 1 tab 09/15/24 21:48 09/15/24 22:45 Hydrocodone/Apap 5/325 Tablet PO 09/20/24 21:47 1 tab Q4HR PRN Administration PAIN SCALE 4-10(Mod-Sev Aspirin 81 mg 09/16/24 09:00 09/16/24 08:34 Aspirin Ec 81 Mg Tabec PO 10/16/24 08:59 Not Given QDAY PRASANTH Finasteride 5 mg 09/16/24 09:00 09/17/24 09:53 Finasteride 5 Mg Tablet PO 10/16/24 08:59 5 mg QDAY PRASANTH Administration Fluticasone Propionate 1 spray 09/15/24 22:00 09/17/24 09:30 Fluticasone Finesse [place] 0.05% 16 Gm Btl NASAL 10/15/24 21:59 Not Given BID PRASANTH Heparin Sodium (Porcine) 5,000 unit 09/15/24 22:00 09/17/24 09:55 Heparin Sod Inj 5000 Unit/Ml Vial SC 09/29/24 21:59 5,000 unit BID PRASANTH Administration Hydroxyzine HCl 50 mg 09/15/24 22:55 Hydroxyzine Hcl 25 Mg Tablet PO 10/15/24 22:59 QID PRN anxiety or itching Cefepime HCl 2 gm/ Sodium 50 mls @ 100 mls/hr 09/16/24 09:00 09/17/24 09:55 Chloride IV 09/23/24 08:59 100 mls/hr DAILY PRASANTH Administration Levalbuterol HCl 0.63 mg 09/15/24 22:00 09/17/24 14:43 Levalbuterol Rt 0.63 Mg/3 Ml Nebu INH 10/15/24 21:59 0.63 mg Q8HR PRASANTH Administration Levothyroxine Sodium 25 mcg 09/16/24 06:00 09/17/24 05:48 Levothyroxine Sodium 25 Mcg Tablet PO 10/16/24 05:59 25 mcg ACBR PRASANTH Administration Ondansetron HCl 4 mg 09/15/24 21:48 Ondansetron Inj 2 Mg/Ml Inj 2 Ml IV 10/15/24 21:47 Q6H PRN NAUSEA OR VOMITING Protocol Pantoprazole Sodium 40 mg 09/17/24 09:00 09/17/24 09:54 Pantoprazole Inj 40 Mg Vial IV 10/17/24 08:59 40 mg QDAY PRASANTH Administration Sennosides 1 tab 09/16/24 09:00 09/17/24 09:53 Senna Tablet PO 10/16/24 08:59 1 tab QDAY PRASANTH Administration Protocol Plan 89-year-old male with extensive past medical history of HFrEF (20 to 25% EF 2022), ischemic cardiomyopathy, CAD s/p CABG, MRSA bacteremia, defibrillator, hypertension, GERD, BPH, CKD stage IV, hypothyroidism, chronic anemia requiring multiple blood transfusion, and potential myelodysplastic syndrome was admitted to the hospital on 09/15/2024 due to acute hypoxic respiratory failure likely 2/2 pleural effusion likely 2/2 HAP. #Acute hypoxic respiratory failure secondary to #BL pleural effusion #Hospital-acquired pneumonia -Patient was recently discharged from hospital due to similar Sx - Patient came in from SNF after O2 dropped and became SOB. -Facility ran out of O2 in patient's O2 tank and eventually patient became hypoxic -Chest x-ray significant for Extensive bilateral pneumonia and Mild to moderate associated heart failure -Chest CT significant for Bilateral pneumonia, extensive in the left lung base, Minimal right pleural effusion and mild to moderate left pleural fluid -ABG showed pH 7.48, pCO2 27, pO2 58, HCO3 21.1 Plan: -Continue cefepime 2g IV qday [09/09/2024-] -US thoracentesis attempted but unsuccessful as it was low in volume. ? Will continue to monitor - O2 as needed via NC #NSTEMI likely type II in the setting of hypoxia -Patient denies any chest pain at this time - Troponins initially 0.115 and uptrended to 0.118 Plan: - Trend troponins -Will continue to monitor #Acute on chronic anemia, and #Pancytopenia, most likely secondary to #Potential myelodysplastic syndrome ? Pathology report from 2023 that showed potential myelodysplastic syndrome ? Patient does follow-up with hematology as an oncologist outpatient and was supposed to have next appointment on 09/16/24 ? Patient initial hemoglobin was 9.1 Plan: ? Bleeding precautions -Transfuse if Hgb less than 8 -Senior Advisor consulted, appreciate recommendations ? Will continue to monitor #HFrEF (15 to 20% EF 08/2023) #CAD s/p CABG #Hx of ischemic cardiomyopathy ? Patient does have some history of HFrEF with an ejection fraction of 15-20% ? BNP greater than 3280, likely due to entresto Plan: ? Bumex on Hold for now in the setting of low BP - Fluid restrictions ? Daily weights ? Will continue to monitor #Transaminitis, stable ?Patient's AST 54 -Priorly seen in hospital and had transaminitis which resolved Plan: ? Will continue to monitor #CKD stage IIIb -Base line Cr around 2 -Cr to 1.8 today ? 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 Avoid nephrotoxic agents ? Renally dose medications ? Will continue to monitor #Hx of A-fib ? EKG ordered showed paced rhythm Plan: ? Will continue to monitor and consider cardio consult if develops a-fib #Hx of hypothyroidism ? Will continue patient's levothyroxine 25 mcg p.o. #Hx of hypertension ?Patient's blood pressure has been soft therefore will hold off on any antihypertensive medication for now. #Hx of BPH ?Will continue finasteride 5 mg daily #Hx of GERD ?Restarted pantoprazole Disposition: Patient seen in telemetry due to acute hypoxic respiratory failure likely secondary to pleural effusion likely secondary to community-acquired pneumonia. Diet: Cardiac/renal GI prophylaxis: protonix DVT prophylaxis: Heparin SQ Code: Full The patient's management plan was discussed with my attending physician MD Rusty Dacosta MD, PGY2 Attending Provider Attestation/Addendum 89-year-old male patient with possible myelodysplastic syndrome, pancytopenia, coronary artery disease status post CABG, ischemic cardiomyopathy, admitted for respiratory failure secondary to bilateral pneumonia with effusion. Continue current antibiotic treatment. Supportive treatment. Consider palliative evaluation. Discussed with housestaff
[2024-09-17] MEDS: FLUTICASONE NAS SPRAY 0.05% 16 GM BTL 1 SPRAY NASAL (20:12)
[2024-09-18] VITALS (13 sets, daily range): BP systolic 95–112; BP diastolic 49–64; PULSE 61–83; RESP 16–26; TEMP 36.1–36.9; O2SAT 92–100; BMI 22.2
--- NOTE | 2024-09-18 02:00 | ESCONSULT_ITS ---
RE: CHRISTIANE COTTRELL : 1935 DATE OF CONSULTATION: 09/17/2024 CONSULTING PHYSICIAN: Hospitalist. REASON FOR CONSULTATION: Evaluation of congestive heart failure, shortness of breath with hypoxic respiratory failure. HISTORY OF PRESENT ILLNESS: The patient is an 89-year-old male, very well known to me, history of ischemic cardiomyopathy, status post bypass surgery x4, and history of INSIDE ACCOUNT EXECUTIVE defibrillator implantation, chronic systolic heart failure, EF 15% to 20%, recently hospitalized prolongedly for the influenza pneumonia and pleural effusion. Now, came to the hospital because oxygen, hypoxemia, shortness of breath. He is feeling better now, but initial assessment showed hemoglobin was stable at 9.1. Now, it has come down slightly to 8 g. No active bleeding, but has no abnormalities weakness, shortness of breath. Chest x-ray showed evidence of possible pleural effusion. Attempt to drain that was unsuccessful. There was only minimal right and left pleural fluid on chest x-ray otherwise. He has been on medical management with combination of carvedilol, Entresto, and bumetanide. He does have CKD with creatinine of 2 and BUN in the 60s generally. The patient has [place] [employer] functional class IV stage D heart failure symptoms. Recently had pneumonia and left lung infiltrate as well. Clinically, he is still having a lot of shortness of breath requiring oxygen, hypoxic respiratory failure. He is generally feeling well. Blood pressure on the soft side, but tolerates 90 systolic quite well. MEDICATION LIST: Please see the list. He has been on multiple medications including 1. Bumetanide 2 mg daily. 2. Carvedilol low dose 3.125 mg twice daily. 3. Entresto 24/26 twice daily. PAST MEDICAL HISTORY: Ischemic cardiomyopathy with status post bypass surgery. Ejection fraction recently 20% and quite low, dilated ventricle, and moderate mitral regurgitation as well. He has INSIDE ACCOUNT EXECUTIVE defibrillator implantation in 08/2023. 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 The new device has not shown any infection. He has had major other problems, orthopedic issues, hip pain as well. PHYSICAL EXAMINATION: GENERAL: Shows well-nourished, pleasant male, alert, awake, in no acute distress. VITAL SIGNS: Blood pressure 93/60, pulse rate is 70, respiratory rate 18, and temperature normal. NECK: Supple. CHEST: Decreased breath sounds at the bases, especially left side. HEART: S1 and S2, regular. ABDOMEN: Thin and soft. EXTREMITIES: No edema. GENITOURINARY/RECTAL: Not performed. NEUROLOGIC: . IMAGING: Electrocardiogram showed 100% pacemaker rhythm. Biventricular pacemaker. IMPRESSION/ASSESSMENT: 1. Acutely decompensated congestive heart failure. 2. Chronic systolic heart failure. 3. Left lower lobe infiltrate with possible persistent pneumonia. There is small effusion, not enough to drain. 4. Status post INSIDE ACCOUNT EXECUTIVE defibrillator implantation. 5. Chronic myelodysplastic syndrome with anemia, requiring multiple transfusions followed by hematology. RECOMMENDATIONS: Continue diuretic therapy. He feels better now. probably discharge him home whenever he is stable on oxygen. I will see him for followup in my office. Keep regular appointments. I would recommend continuing all his home medications that include Entresto, even though his blood pressure is low, he does tolerate it well, low-dose carvedilol and diuretics. DT: 00:02:24 TT: 01:06:00 Ref: [id number] - TID: [id number]
[2024-09-18] MEDS: LEVOTHYROXINE SODIUM 25 MCG TABLET PO (05:19)
[2024-09-18 06:51] LABS: Basophils # (Auto) 0.1 Thou/mm3 (0.0-0.2); Basophils % (Auto) 2 % (0-2.5); Eosinophils # (Auto) 0.2 Thou/mm3 (0.0-0.5); Eosinophils % (Auto) 4 % (0-10); Immature Granulocytes % (Auto) 1 % (0-0); Immature Granulocytes Auto 0.03 Thou/mm3 (0.00-0.00); Lymphocytes # (Auto) 0.8 Thou/mm3 (1.0-4.8); Lymphocytes % (Auto) 20 % (10-50); Mean Corpuscular HGB Conc 32.7 g/dl (31.0-37.0); Mean Corpuscular Hemoglobin 32.3 pg (25.0-35.0); Mean Corpuscular Volume 99 fL (80-100); Monocytes # (Auto) 0.3 Thou/mm3 (0.0-0.8); Monocytes % (Auto) 7 % (0-12); Neutrophils # (Auto) 2.7 Thou/mm3 (1.8-7.7); Neutrophils % (Auto) 67 % (37-80); Nucleated Red Blood Cell % 0 /100 WBC (0); Platelet Count 95 Thou/mm3 (140-440); RDW Standard Deviation 73.7 fL (35.1-43.9); Red Blood Count 2.23 Miln/mm3 (4.50-5.90)
[2024-09-18 06:54] LABS: Alanine Aminotransferase 41 U/L (10-49); Albumin/Globulin Ratio 0.6 (1.2-2.2); Alkaline Phosphatase 65 U/L (46-116); Anion Gap 7 (7-16); Aspartate Amino Transferase 22 U/L (0-34); BUN/Creatinine Ratio 27 Ratio (12-20); Bilirubin,Total 0.4 mg/dL (0.3-1.2); Blood Urea Nitrogen 48 mg/dL (9-23); Calcium 8.7 mg/dL (8.3-10.6); Calcium (Corrected) 9.5 mg/dL (8.5-10.1); Carbon Dioxide 22.6 mMol/L (20.0-31.0); Chloride 107 mMol/L (98-107); Creatinine (Component) 1.8 mg/dL (0.6-1.3); Estimated Creatinine Clearance 26.3 mL/min (>60); Globulin 4.7 gm/dL (2.3-3.5); Glucose 94 mg/dL (74-106); Magnesium 2.2 mg/dL (1.6-2.6); Osmolality,Calculated 286 (275-295); Phosphorous 3.4 mg/dL (2.4-5.1); Sodium 137 mMol/L (136-145); Total Protein 7.7 gm/dL (5.7-8.2); eGFR 36 See Note
[2024-09-18 07:15] LABS: Hemoglobin 7.2 g/dL (13.5-16.0)
[2024-09-18] MEDS: LEVALBUTEROL RT 0.63 MG/3 ML NEBU INH ×3 (07:27→22:57)
[2024-09-18 09:32] LABS: Hematocrit 22.9 % (41.0-53.0)
[2024-09-18 09:33] LABS: Hemoglobin 7.4 g/dL (13.5-16.0)
--- NOTE | 2024-09-18 10:25 | ESCONSULT_ITS ---
RE: CHRISTIANE COTTRELL : 1935 DATE OF CONSULTATION: 09/17/2024 REFERRING PHYSICIAN: Dr. Amilcar Parker REASON FOR CONSULTATION: Anemia/myelodysplastic syndrome HISTORY OF PRESENT ILLNESS: Mr. 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 He has been followed by and department store general manager Dr. Leonard. He used to be seen by Dr. Milner in the past. It is noted from the record that the patient had multiple transfusions and he because of shortness of breath was admitted to the hospital and he did receive blood transfusion. He cannot give a lot of information, so most of the information is gathered through the record. The patient had a bone marrow biopsy done in 11/17 and findings were consistent with likely myelodysplastic. He was followed up with Dr. Milner and he later on was followed by Dr. Tucker in [place]. The patient denies any systemic symptoms except related to shortness of breath. PAST MEDICAL HISTORY: Significant for dilated cardiomyopathy, chronic systolic CHF, ejection fraction of 15% to 20%, coronary artery disease status post triple vessel CABG, history of MRSA, endocarditis, hypertension, gastroesophageal reflux disease, benign prostatic hypertension, chronic kidney disease stage IIIB. 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 MEDICATIONS: As per record. ALLERGIES: NOT KNOWN. SOCIAL HISTORY: He is a nonsmoker, but he has a remote history of smoking 50 years ago. He denies use of illicit drugs or alcohol. PHYSICAL EXAMINATION: GENERAL: He is alert with no apparent distress, but do get short of breath with conversation. His vitals are stable. HEENT: Pupils are reactive to light and accommodation. Sclerae nonicteric. NECK: Supple. There are No JVD or palpable mass. LUNGS: There is good air entry bilaterally with clear to auscultation and percussion. HEART: Regular. ABDOMEN: Soft. Bowel sounds are present. EXTREMITIES: 3+ palpable pulses. There is no cyanosis. DRY END OPERATOR: The patient do move his extremities and follows simple command. LABORATORY DATA: His blood work done today, WBC count of 4, hemoglobin 7.4, hematocrit 22.6, MCV of 100, MCH of 32.6, platelet count of 129,000. On 09/07/2024, his hemoglobin was 7.9, hematocrit was 23.8. Even in 08/19, his hemoglobin was around 7.8, but it was also noted that on 08/21/2024, his hemoglobin was 5.7 with a hematocrit of 17.9. At that time, his platelet count was 161,000. It is noted from the record that the patient did not have a response to Procrit and his electrolytes done today has a sodium of 138, potassium 3.8, chloride is 106, his BUN of 51, creatinine 1.8, GFR is 36. His protein is 7.7 and globulin is 4.8, which is mildly elevated. ASSESSMENT AND PLAN: I agree with the present plan of treatment. As the patient is not responding to the Procrit, then one has to consider taking a chemo medication if he agrees to that. I requested the patient that when he is discharged, he can see me in my office for the followup and I will discuss with the different options of the treatment. Once he continues to take the blood transfusion, he may have benefit for a short period of time, but overall he will end up having too much iron deposition and he may develop hemochromatosis. I thank you, for letting me participate in the care of this interesting patient. If you have any questions, please feel free to contact me. DT: 13:35:35 TT: 15:25:00 Ref: [id number] - TID: [id number]
[2024-09-18] MEDS: MUPIROCIN OINT 2% 15 GM TUBE TOP ×3 (10:48→21:35)
[2024-09-18] MEDS: BUMETANIDE INJ 0.25 MG/ML VIAL 4 ML 0.5 MG IVP ×2 (10:49→14:11)
[2024-09-18] MEDS: MIDODRINE 5 MG TABLET PO ×3 (10:49→21:40)
[2024-09-18] MEDS: ASPIRIN EC 81 MG TABEC PO (10:50)
[2024-09-18] MEDS: DOXYCYCLINE 100 MG TABLET PO ×2 (10:50→20:51)
[2024-09-18] MEDS: FINASTERIDE 5 MG TABLET PO (10:53)
[2024-09-18] MEDS: SENNA TABLET 1 TAB PO (10:54)
[2024-09-18] MEDS: FLUTICASONE NAS SPRAY 0.05% 16 GM BTL 1 SPRAY NASAL ×2 (10:54→21:35)
[2024-09-18] MEDS: HEPARIN SOD INJ 5000 UNIT/ML VIAL SC ×2 (10:54→20:51)
[2024-09-18] MEDS: PANTOPRAZOLE INJ 40 MG VIAL IV (10:54)
[2024-09-18] MEDS: CEFEPIME INJ 2 GM in SODIUM CHLORIDE 0.9% (P) 50 ML IV (10:59)
--- NOTE | 2024-09-18 11:14 | PD.RESPRO ---
Documentation for date of: 09/18/24 Subjective Subjective Interval history: Patient was seen at bedside this morning. No overnight events. Patient continues on nasal cannula at 5 L, his O2 saturations did drop when O2 was decreased to 2 L. Patient sputum culture did not grow GPC's and he was MRSA positive on the nares therefore added doxycycline 100 mg twice daily. Cardiology wanted to start patient back on his heart failure medication as well as Bumex, but patient's blood pressure has been on the lower and therefore we will start with Bumex 1 mg and see how patient responds. No other complaints at this time. Will order chest x-ray for tomorrow morning. Exam Vital Signs Temp Pulse Resp BP Pulse Ox O2 Del Method O2 Flow Rate 97.8 F 77 20 97/50 L 97 Nasal Cannula 5 09/18/24 08:00 09/18/24 10:49 09/18/24 08:00 09/18/24 10:49 09/18/24 08:00 09/18/24 08:00 09/18/24 08:00 Narrative Exam General: A/O x3,mild respiratory distress, elderly male Eyes: PERRL, EOMI. anicteric, vision grossly intact. Ears: No ear pain, no ear discharge, Hearing grossly intact. Nose: No nasal discharge. Mouth/Throat: Dry mucous membranes, no redness, no lesions. Neck: Neck supple, non-tender, no cervical lymphadenopathy. Lungs: decreased breath sounds in SHAHEEN Lower lobes, No accessory muscle use. Cardio: Normal S1/S2, regular rhythm, no murmurs, no JVD Abdomen: Soft, non-tender, no palpable masses, peristalsis present, no guarding or rebound. Extremities: Symmetrical, no significant deformities, no peripheral edema, non-tender, peripheral pulses presents. Skin: No rashes, no lesions, warm to touch. Neuro: No focal neurological deficits. motor and sensory intact Psych: Cooperative, appropriate mood and effect. Objective Labs 09/18/24 08:55 09/18/24 05:53 Labs: Laboratory Results - last 24 hr 09/17/24 09/18/24 09/18/24 14:10 05:53 08:55 WBC 4.0 RBC 2.23 L Hgb 8.0 L 7.2 L 7.4 L Hct 24.7 L 22.0 L 22.9 L MCV 99 MCH 32.3 MCHC 32.7 RDW Std Deviation 73.7 H Plt Count 95 L D Neut % (Auto) 67 Lymph % (Auto) 20 [place] % (Auto) 7 Eos % (Auto) 4 Baso % (Auto) 2 Neut # (Auto) 2.7 Lymph # (Auto) 0.8 L [place] # (Auto) 0.3 Eos # (Auto) 0.2 Baso # (Auto) 0.1 Immature Gran # (Auto) 0.03 H Absolute Nucleated RBC 0.00 Immature Gran % 1 H Nucleated RBC % 0 Sodium 137 Potassium 4.0 Chloride 107 Carbon Dioxide 22.6 Anion Gap 7 BUN 48 H Creatinine 1.8 H Estim Creat Clear Calc 26.3 L eGFR 36 L BUN/Creatinine Ratio 27 H Glucose 94 Calculated Osmolality 286 Calcium 8.7 Corrected Calcium 9.5 Phosphorus 3.4 Magnesium 2.2 Total Bilirubin 0.4 AST 22 ALT 41 Alkaline Phosphatase 65 Total Protein 7.7 Albumin 3.0 L Globulin 4.7 H Albumin/Globulin Ratio 0.6 L ABG Interpretation ABG results: 09/15/24 19:59 ABG pH 7.48 H ABG pCO2 27 L ABG pO2 58 L* ABG HCO3 20 ABG O2 Saturation 91 ABG Base Excess -3 Quality Measures Quality Measures none Advance care planning discussed with:: patient Assessment & Plan Assessment Current Active Medications: Generic Name Dose Route Start Last Admin Trade Name Freq PRN Reason Stop Dose Admin Acetaminophen 1,000 mg 09/15/24 21:48 Acetaminophen 325 Mg Tablet PO 10/15/24 21:47 Q6H PRN Fever >100.3 or pain Protocol Hydrocodone Bitart/Acetaminophen 1 tab 09/15/24 21:48 09/15/24 22:45 Hydrocodone/Apap 5/325 Tablet PO 09/20/24 21:47 1 tab Q4HR PRN Administration PAIN SCALE 4-10(Mod-Sev Aspirin 81 mg 09/16/24 09:00 09/18/24 10:50 Aspirin Ec 81 Mg Tabec PO 10/16/24 08:59 81 mg QDAY PRASANTH Administration Doxycycline Hyclate 100 mg 09/18/24 09:00 09/18/24 10:50 Doxycycline 100 Mg Tablet PO 09/25/24 08:59 100 mg BID PRASANTH Administration Finasteride 5 mg 09/16/24 09:00 09/18/24 10:53 Finasteride 5 Mg Tablet PO 10/16/24 08:59 5 mg QDAY PRASANTH Administration Fluticasone Propionate 1 spray 09/15/24 22:00 09/18/24 10:54 Fluticasone Finesse [place] 0.05% 16 Gm Btl NASAL 10/15/24 21:59 1 spray BID PRASANTH Administration Heparin Sodium (Porcine) 5,000 unit 09/15/24 22:00 09/18/24 10:54 Heparin Sod Inj 5000 Unit/Ml Vial SC 09/29/24 21:59 5,000 unit BID PRASANTH Administration Hydroxyzine HCl 50 mg 09/15/24 22:55 Hydroxyzine Hcl 25 Mg Tablet PO 10/15/24 22:59 QID PRN anxiety or itching Cefepime HCl 2 gm/ Sodium 50 mls @ 100 mls/hr 09/18/24 11:00 09/18/24 10:59 Chloride IV 09/18/24 11:29 100 mls/hr X1 ONE Administration Cefepime HCl 2 gm/ Sodium 50 mls @ 100 mls/hr 09/19/24 09:00 Chloride IV 09/23/24 08:59 DAILY PRASANTH Levalbuterol HCl 0.63 mg 09/17/24 23:00 09/18/24 07:27 Levalbuterol Rt 0.63 Mg/3 Ml Nebu INH 10/17/24 22:59 0.63 mg Q8HRRT PRASANTH Administration Levothyroxine Sodium 25 mcg 09/16/24 06:00 09/18/24 05:19 Levothyroxine Sodium 25 Mcg Tablet PO 10/16/24 05:59 25 mcg ACBR PRASANTH Administration Midodrine 5 mg 09/18/24 08:15 09/18/24 10:49 Midodrine 5 Mg Tablet PO 10/18/24 08:14 5 mg TID PRASANTH Administration Mupirocin 0 gm 09/18/24 07:45 09/18/24 10:48 Mupirocin Oint 2% 15 Gm Tube TOP 09/25/24 07:44 1 applicatio TID PRASANTH Administration Ondansetron HCl 4 mg 09/15/24 21:48 Ondansetron Inj 2 Mg/Ml Inj 2 Ml IV 10/15/24 21:47 Q6H PRN NAUSEA OR VOMITING Protocol Pantoprazole Sodium 40 mg 09/17/24 09:00 09/18/24 10:54 Pantoprazole Inj 40 Mg Vial IV 10/17/24 08:59 40 mg QDAY PRASANTH Administration Sennosides 1 tab 09/16/24 09:00 09/18/24 10:54 Senna Tablet PO 10/16/24 08:59 1 tab QDAY PRASANTH Administration Protocol Plan 89-year-old male with extensive past medical history of HFrEF (20 to 25% EF 2022), ischemic cardiomyopathy, CAD s/p CABG, MRSA bacteremia, defibrillator, hypertension, GERD, BPH, CKD stage IV, hypothyroidism, chronic anemia requiring multiple blood transfusion, and potential myelodysplastic syndrome was admitted to the hospital on 09/15/2024 due to acute hypoxic respiratory failure likely 2/2 pleural effusion likely 2/2 HAP. #Acute hypoxic respiratory failure likely secondary to #SHAHEEN pleural effusion #Hospital-acquired pneumonia #GPC pneumonia -Patient was recently discharged from hospital due to similar Sx - Patient came in from SNF after O2 dropped and became SOB. -Facility ran out of O2 in patient's O2 tank and eventually patient became hypoxic -Chest x-ray significant for Extensive bilateral pneumonia and Mild to moderate associated heart failure -Chest CT significant for Bilateral pneumonia, extensive in the left lung base, Minimal right pleural effusion and mild to moderate left pleural fluid -ABG showed pH 7.48, pCO2 27, pO2 58, HCO3 21.1 ? Patient's sputum culture did grow GPC's ? Patient is nares were positive for MRSA Plan: -Continue cefepime 2g IV qday [09/09/2024-] ? Start patient on doxycycline 100 mg p.o. twice daily [09/18/2024-] ?Start mupirocin -Repeat CXR tomorrow morning ? Will continue to monitor #HFrEF (15 to 20% EF 08/2023) #CAD s/p CABG #Hx of ischemic cardiomyopathy ? Patient does have some history of HFrEF with an ejection fraction of 15-20% ? BNP greater than 3280, likely due to entresto Plan: ? Bumex 1 mg x1 today ? Start patient on midodrine 5 mg p.o. 3 times daily due to low blood pressure -Bumex 1mg qday - Fluid restrictions ? Daily weights ? Will continue to monitor #Acute on chronic anemia likely secondary to #Potential myelodysplastic syndrome ? Pathology report from 2023 that showed potential myelodysplastic syndrome ? Patient does follow-up with hematology as an oncologist outpatient and was supposed to have an appointment today ?Patient initial hemoglobin was 9.1 -Hgb today 7.4 Plan: ? Bleeding precautions -Transfuse if Hgb less than 8 -Hospice Clinical Manager consulted, appreciate recommendations ? Will continue to monitor #NSTEMI likely type II in the setting of hypoxia -Patient denies any chest pain at this time - Troponins initially 0.115 and peaked at 0.118 Plan: -Will continue to monitor #Transaminitis, resolved ?Patient's AST 22 -Priorly seen in hospital and had transaminitis which resolved Plan: ? Will continue to monitor #CKD stage IIIb -Base line Cr around 2 -Cr to 1.8 today ? Patient follows up outpatient with row boss hoeing Plan: ? Avoid nephrotoxic agents ? Renally dose medications ? Will continue to monitor #Hx of A-fib ? EKG ordered showed paced rhythm Plan: ? Will continue to monitor and consider cardio consult if develops a-fib #Hx of hypothyroidism ? Will continue patient's levothyroxine 25 mcg p.o. #Hx of hypertension ?Patient's blood pressure has been soft therefore will hold off on any antihypertensive medication for now. #Hx of BPH ?Will continue finasteride 5 mg daily #Hx of GERD ?Continue pantoprazole Disposition: Patient seen in telemetry due to acute hypoxic respiratory failure likely secondary to pleural effusion likely secondary to community-acquired pneumonia. Diet: Cardiac/renal GI prophylaxis: protonix DVT prophylaxis: SCDS in the setting of anemia Code: Full Case disclosed with Attending Dr. Quintero and My senior Dr. Williamson PGY2. Kevin Hodge PGY1 Senior Resident Attestation: The patient is an 89-year-old male with significant past medical history of HFrEF 15 to 20%, on August 2024, ischemic went out of oxygen. Cardiomyopathy, CAD s/p CABG, MRSA bacteremia, ICD placement, hypertension, GERD, BPH, CKD, hypothyroidism, chronic anemia secondary to possible myelo dysplastic syndrome was admitted to hospital on 09/15/2024 with chief complaint of shortness of breath as his facility oxygen finished. This morning, doing fairly well, and was saturating 94% on 5 L oxy mask. His labs are basically at baseline with chronic anemia and CKD. He was given 1 mg IV Bumex, we will follow-up on ins and outs. We will continue the patient on cefepime 2 g IV daily, and added doxycycline 100 mg twice daily. Renally dosed medications, continue with home levothyroxine 25 mcg's severe, finasteride 5 Mg daily, and pantoprazole 40 Mg daily. We will repeat chest x-ray tomorrow morning to evaluate further pleural effusions. I discussed with and supervised the general internal medicine doctor physician involved in the care of this patient. I personally saw and examined the patient and discussed the assessment and plan with the entire medicine team, including my attending. I agree with the assessment and plan as documented above. Rusty Williamson MD PGY2 Attending Provider Attestation/Addendum 89-year-old male patient with hypoxic respiratory failure secondary to pneumonia. Patient has pancytopenia, he is unclear diagnosis of myelodysplastic syndrome. The patient will be referred to his oncologist director of therapy services with regards blood transfusion for hemoglobin of 7.4 in the setting of ischemic cardiomyopathy.. Discussed with housestaff today.
--- NOTE | 2024-09-18 15:14 | PC.SS ---
Rounding Note: Plan is to repeat chest X-Ray. Possible d/c tomorrow.
--- NOTE | 2024-09-18 19:06 | ESPR_ITS ---
RE: CHRISTIANE COTTRELL : 1935 DATE OF SERVICE: 09/18/2024 SUBJECTIVE: Mr. Cottrell is an 89-year-old gentleman with known history of moderate dysplastic syndrome, coronary artery disease, multiple other morbidities. He is on the respiratory mask, but he still gets short of breath with the conversation. He denies any systemic symptoms. PHYSICAL EXAMINATION: General: He is alert. Vital Signs: He is afebrile. Vitals stable. HEENT: Pupils are reactive to light and accommodation. Sclerae nonicteric. Neck: Neck is supple. There is no JVD or palpable mass. Lungs: There was good air entry bilaterally. They are clear to auscultation and percussion. Heart: Heart is regular. Abdomen: Abdomen soft. Bowel sounds are present. Extremities: 3+ peripheral pulses. There are no signs of edema. Central Nervous System: The patient to move his extremities and follows the command. PLAN AND RECOMMENDATIONS: 1. His blood work today, white blood cell count of 4, hemoglobin 7.4, hematocrit 22.9 with normal indices, platelet count 95,000. 2. His BUN 48, creatinine 1.8 with glomerular filtration rate is less than 30, so one can consider Revlimid, maybe a small dose because he did not respond to the Procrit. 3. I requested the patient that when he is discharged, he could see me in my office in 7-10 days and p.r.n. DT: 16:35:41 TT: 18:40:00 Ref: [id number] - TID: [id number]
--- NOTE | 2024-09-18 19:55 | PC.NURSE ---
aware of MAP 64, no other orders
[2024-09-19] VITALS (12 sets, daily range): BP systolic 87–119; BP diastolic 47–79; PULSE 53–83; RESP 14–28; TEMP 36.2–36.8; O2SAT 92–99; BMI 22.2
[2024-09-19] MEDS: LEVOTHYROXINE SODIUM 25 MCG TABLET PO (05:04)
[2024-09-19] MEDS: MUPIROCIN OINT 2% 15 GM TUBE TOP ×3 (05:04→22:51)
[2024-09-19] MEDS: MIDODRINE 5 MG TABLET PO ×3 (05:04→21:38)
[2024-09-19 06:31] LABS: Basophils # (Auto) 0.1 Thou/mm3 (0.0-0.2); Basophils % (Auto) 1 % (0-2.5); Eosinophils # (Auto) 0.1 Thou/mm3 (0.0-0.5); Eosinophils % (Auto) 2 % (0-10); Hematocrit 22.3 % (41.0-53.0); Immature Granulocytes % (Auto) 1 % (0-0); Immature Granulocytes Auto 0.05 Thou/mm3 (0.00-0.00); Lymphocytes # (Auto) 0.7 Thou/mm3 (1.0-4.8); Lymphocytes % (Auto) 16 % (10-50); Mean Corpuscular HGB Conc 32.7 g/dl (31.0-37.0); Mean Corpuscular Hemoglobin 32.3 pg (25.0-35.0); Mean Corpuscular Volume 99 fL (80-100); Monocytes # (Auto) 0.4 Thou/mm3 (0.0-0.8); Monocytes % (Auto) 8 % (0-12); Neutrophils # (Auto) 3.2 Thou/mm3 (1.8-7.7); Neutrophils % (Auto) 71 % (37-80); Nucleated Red Blood Cell % 0 /100 WBC (0); Platelet Count 108 Thou/mm3 (140-440); RDW Standard Deviation 73.1 fL (35.1-43.9); Red Blood Count 2.26 Miln/mm3 (4.50-5.90); White Blood Count 4.5 Thou/mm3 (3.8-10.6)
[2024-09-19 06:33] LABS: Hemoglobin 7.3 g/dL (13.5-16.0)
[2024-09-19] MEDS: LEVALBUTEROL RT 0.63 MG/3 ML NEBU INH ×2 (06:54→23:01)
[2024-09-19 07:02] LABS: Alanine Aminotransferase 33 U/L (10-49); Albumin, Serum 2.8 gm/dL (3.4-4.8); Albumin/Globulin Ratio 0.6 (1.2-2.2); Alkaline Phosphatase 62 U/L (46-116); Anion Gap 8 (7-16); Aspartate Amino Transferase 16 U/L (0-34); BUN/Creatinine Ratio 24 Ratio (12-20); Bilirubin,Total 0.4 mg/dL (0.3-1.2); Blood Urea Nitrogen 48 mg/dL (9-23); Calcium 8.7 mg/dL (8.3-10.6); Calcium (Corrected) 9.7 mg/dL (8.5-10.1); Carbon Dioxide 23.1 mMol/L (20.0-31.0); Chloride 106 mMol/L (98-107); Estimated Creatinine Clearance 23.7 mL/min (>60); Globulin 4.7 gm/dL (2.3-3.5); Glucose 97 mg/dL (74-106); Osmolality,Calculated 286 (275-295); Potassium 3.6 mMol/L (3.4-5.1); Sodium 137 mMol/L (136-145); Total Protein 7.5 gm/dL (5.7-8.2); eGFR 32 See Note
--- NOTE | 2024-09-19 07:42 | XR_ITS ---
Examination: AP chest single view Technique one AP portable upright chest single view Exam date and time: September 19, 2024 0732 hrs. Comparison September 15, 2024, CT chest September 15, 2024 Indications: Acute hypoxic respiratory failure, shortness of breath difficulty breathing beginning several days ago Findings: Extensive pneumonia in the lower lung zones Mild heart failure with enlargement cardiac contour prominent vascular congestion mild perihilar edema Cardiac leads satisfactory position Prominent osteopenia No pneumothoraces Impression: Extensive pneumonia at the lung bases Mild heart failure
[2024-09-19] MEDS: POTASSIUM CHLORIDE 20 mEq TABCR 40 MEQ PO (08:53)
[2024-09-19] MEDS: FLUTICASONE NAS SPRAY 0.05% 16 GM BTL 1 SPRAY NASAL ×2 (08:53→21:40)
[2024-09-19] MEDS: BUMETANIDE INJ 0.25 MG/ML VIAL 4 ML 1 MG IVP (08:54)
[2024-09-19] MEDS: SENNA TABLET 1 TAB PO (08:54)
[2024-09-19] MEDS: FINASTERIDE 5 MG TABLET PO (08:54)
[2024-09-19] MEDS: ASPIRIN EC 81 MG TABEC PO (08:54)
[2024-09-19] MEDS: HEPARIN SOD INJ 5000 UNIT/ML VIAL SC ×2 (08:55→21:40)
[2024-09-19] MEDS: PANTOPRAZOLE INJ 40 MG VIAL IV (08:55)
[2024-09-19] MEDS: VANCOMYCIN/WATER 1250 MG IVPB 250 ML 120 MG IV (09:54)
[2024-09-19] MEDS: CEFEPIME INJ 2 GM in SODIUM CHLORIDE 0.9% 50 ML IV (09:54)
[2024-09-19] MEDS: SACUBITRIL 24 MG/VALSARTAN 26 MG TABLET 0.5 TAB PO ×2 (13:45→21:39)
--- NOTE | 2024-09-19 14:43 | PC.SS ---
LINEN ROOM ATTENDANT informed bedside nurse of need to conduct room air evaluation to confirm patient's need for home oxygen.
--- NOTE | 2024-09-19 14:43 | PD.RESPRO ---
Documentation for date of: 09/19/24 Subjective Subjective Interval history: Patient was seen at bedside this morning. Patient is improving and saturating well on 2 L on nasal cannula. Patient's sputum culture was positive for MRSA. Patient was switched to vancomycin by night team, but will transition to doxycycline p.o. twice daily. Will start patient on Entresto and monitor patient's blood pressure. No other complaints at this time. Anticipate discharge in the next 24-48 hours. Exam Vital Signs Temp Pulse Resp BP Pulse Ox O2 Del Method O2 Flow Rate 97.1 F 83 18 106/63 92 L Nasal Cannula 3 09/19/24 08:00 09/19/24 14:10 09/19/24 08:00 09/19/24 14:10 09/19/24 08:00 09/19/24 08:00 09/19/24 08:00 Narrative Exam General: A/O x3,mild respiratory distress, elderly male Eyes: PERRL, EOMI. anicteric, vision grossly intact. Ears: No ear pain, no ear discharge, Hearing grossly intact. Nose: No nasal discharge. Mouth/Throat: Dry mucous membranes, no redness, no lesions. Neck: Neck supple, non-tender, no cervical lymphadenopathy. Lungs: Clear Shaheen upper lobes and mild crackles on SHAHEEN lower lobes, No accessory muscle use. Cardio: Normal S1/S2, regular rhythm, no murmurs, no JVD Abdomen: Soft, non-tender, no palpable masses, peristalsis present, no guarding or rebound. Extremities: Symmetrical, no significant deformities, no peripheral edema, non-tender, peripheral pulses presents. Skin: No rashes, no lesions, warm to touch. Neuro: No focal neurological deficits. motor and sensory intact Psych: Cooperative, appropriate mood and effect. Objective Labs 09/19/24 05:25 09/19/24 05:25 Labs: Laboratory Results - last 24 hr 09/19/24 05:25 WBC 4.5 RBC 2.26 L Hgb 7.3 L Hct 22.3 L MCV 99 MCH 32.3 MCHC 32.7 RDW Std Deviation 73.1 H Plt Count 108 L Neut % (Auto) 71 Lymph % (Auto) 16 Chambers % (Auto) 8 Eos % (Auto) 2 Baso % (Auto) 1 Neut # (Auto) 3.2 Lymph # (Auto) 0.7 L Chambers # (Auto) 0.4 Eos # (Auto) 0.1 Baso # (Auto) 0.1 Immature Gran # (Auto) 0.05 H Absolute Nucleated RBC 0.00 Immature Gran % 1 H Nucleated RBC % 0 Sodium 137 Potassium 3.6 Chloride 106 Carbon Dioxide 23.1 Anion Gap 8 BUN 48 H Creatinine 2.0 H Estim Creat Clear Calc 23.7 L eGFR 32 L BUN/Creatinine Ratio 24 H Glucose 97 Calculated Osmolality 286 Calcium 8.7 Corrected Calcium 9.7 Magnesium 2.0 Total Bilirubin 0.4 AST 16 ALT 33 Alkaline Phosphatase 62 Total Protein 7.5 Albumin 2.8 L Globulin 4.7 H Albumin/Globulin Ratio 0.6 L ABG Interpretation ABG results: 09/15/24 19:59 ABG pH 7.48 H ABG pCO2 27 L ABG pO2 58 L* ABG HCO3 20 ABG O2 Saturation 91 ABG Base Excess -3 Quality Measures Quality Measures none Advance care planning discussed with:: patient Assessment & Plan Assessment Current Active Medications: Generic Name Dose Route Start Last Admin Trade Name Freq PRN Reason Stop Dose Admin Acetaminophen 1,000 mg 09/15/24 21:48 Acetaminophen 325 Mg Tablet PO 10/15/24 21:47 Q6H PRN Fever >100.3 or pain Protocol Hydrocodone Bitart/Acetaminophen 1 tab 09/15/24 21:48 09/15/24 22:45 Hydrocodone/Apap 5/325 Tablet PO 09/20/24 21:47 1 tab Q4HR PRN Administration PAIN SCALE 4-10(Mod-Sev Aspirin 81 mg 09/16/24 09:00 09/19/24 08:54 Aspirin Ec 81 Mg Tabec PO 10/16/24 08:59 81 mg QDAY PRASANTH Administration Bumetanide 1 mg 09/19/24 09:00 09/19/24 08:54 Bumetanide Inj 0.25 Mg/Ml Vial 4 Ml IVP 10/19/24 08:59 1 mg QDAY PRASANTH Administration Doxycycline Hyclate 100 mg 09/19/24 21:00 Doxycycline 100 Mg Tablet PO 09/26/24 20:59 BID PRASANTH Finasteride 5 mg 09/16/24 09:00 09/19/24 08:54 Finasteride 5 Mg Tablet PO 10/16/24 08:59 5 mg QDAY PRASANTH Administration Fluticasone Propionate 1 spray 09/15/24 22:00 09/19/24 08:53 Fluticasone F[place]se [place] 0.05% 16 Gm Btl NASAL 10/15/24 21:59 1 spray BID PRASANTH Administration Heparin Sodium (Porcine) 5,000 unit 09/15/24 22:00 09/19/24 08:55 Heparin Sod Inj 5000 Unit/Ml Vial SC 09/29/24 21:59 5,000 unit BID PRASANTH Administration Hydroxyzine HCl 50 mg 09/15/24 22:55 Hydroxyzine Hcl 25 Mg Tablet PO 10/15/24 22:59 QID PRN anxiety or itching Levalbuterol HCl 0.63 mg 09/17/24 23:00 09/19/24 06:54 Levalbuterol Rt 0.63 Mg/3 Ml Nebu INH 10/17/24 22:59 0.63 mg Q8HRRT PRASANTH Administration Levothyroxine Sodium 25 mcg 09/16/24 06:00 09/19/24 05:04 Levothyroxine Sodium 25 Mcg Tablet PO 10/16/24 05:59 25 mcg ACBR PRASANTH Administration Midodrine 5 mg 09/18/24 08:15 09/19/24 14:10 Midodrine 5 Mg Tablet PO 10/18/24 08:14 5 mg TID PRASANTH Administration Mupirocin 0 gm 09/18/24 07:45 09/19/24 05:04 Mupirocin Oint 2% 15 Gm Tube TOP 09/25/24 07:44 2 applicatio TID PRASANTH Administration Ondansetron HCl 4 mg 09/15/24 21:48 Ondansetron Inj 2 Mg/Ml Inj 2 Ml IV 10/15/24 21:47 Q6H PRN NAUSEA OR VOMITING Protocol Pantoprazole Sodium 40 mg 09/17/24 09:00 09/19/24 08:55 Pantoprazole Inj 40 Mg Vial IV 10/17/24 08:59 40 mg QDAY PRASANTH Administration Sacubitril/Valsartan 0.5 tab 09/19/24 10:15 09/19/24 13:45 Sacubitril 24 Mg/Valsartan 26 Mg Tablet PO 10/19/24 10:14 0.5 tab BID PRASANTH Administration Sennosides 1 tab 09/16/24 09:00 09/19/24 08:54 Senna Tablet PO 10/16/24 08:59 1 tab QDAY PRASANTH Administration Protocol Plan 89-year-old male with extensive past medical history of HFrEF (15 to 20% EF 2024), ischemic cardiomyopathy, CAD s/p CABG, MRSA bacteremia, defibrillator, hypertension, GERD, BPH, CKD stage IV, hypothyroidism, chronic anemia requiring multiple blood transfusion, and potential myelodysplastic syndrome was admitted to the hospital on 09/15/2024 due to acute hypoxic respiratory failure likely 2/2 pleural effusion likely 2/2 HAP. #Acute hypoxic respiratory failure likely secondary to #SHAHEEN pleural effusion #Hospital-acquired pneumonia #MRSA pneumonia -Patient was recently discharged from hospital due to similar Sx - Patient came in from SNF after O2 dropped and became SOB. -Facility ran out of O2 in patient's O2 tank and eventually patient became hypoxic -Chest x-ray significant for Extensive bilateral pneumonia and Mild to moderate associated heart failure -Chest CT significant for Bilateral pneumonia, extensive in the left lung base, Minimal right pleural effusion and mild to moderate left pleural fluid -ABG showed pH 7.48, pCO2 27, pO2 58, HCO3 21.1 ? Patient's sputum culture did grow MRSA ? Patient is nares were positive for MRSA -DC'd cefepime 2g IV qday [09/09/2024-09/19/2024] Plan: - Vancomycin x1 today ? continue patient on doxycycline 100 mg p.o. twice daily [09/18/2024-] ?continue mupirocin ? Will continue to monitor #HFrEF (15 to 20% EF 08/2024) #CAD s/p CABG #Hx of ischemic cardiomyopathy ? Patient does have some history of HFrEF with an ejection fraction of 15-20% ? BNP greater than 3280, likely due to entresto Plan: ? Start patient on midodrine 5 mg p.o. 3 times daily due to low blood pressure -Bumex 1mg qday -Started Entresto - Fluid restrictions ? Daily weights ? Will continue to monitor #Acute on chronic anemia likely secondary to #Potential myelodysplastic syndrome ? Pathology report from 2023 that showed potential myelodysplastic syndrome ? Patient does follow-up with hematology as an oncologist outpatient and was supposed to have an appointment today ?Patient initial hemoglobin was 9.1 -Hgb today 7.2 Plan: ? Bleeding precautions -Transfuse if Hgb less than 8 -Transfer Knitter consulted, appreciate recommendations ? Will continue to monitor #NSTEMI likely type II in the setting of hypoxia -Patient denies any chest pain at this time - Troponins initially 0.115 and peaked at 0.118 Plan: -Will continue to monitor #CKD stage IIIb -Base line Cr around 2 -Cr to 2 today ? Patient follows up outpatient with wire winding machine tender Plan: ? Avoid nephrotoxic agents ? Renally dose medications ? Will continue to monitor #Transaminitis, resolved ?Patient's AST 16 -Priorly seen in hospital and had transaminitis which resolved Plan: ? Will continue to monitor #Hx of A-fib ? EKG ordered showed paced rhythm Plan: ? Will continue to monitor and consider cardio consult if develops a-fib #Hx of hypothyroidism ? Will continue patient's levothyroxine 25 mcg p.o. #Hx of hypertension ?Patient's blood pressure has been soft therefore will hold off on any antihypertensive medication for now. #Hx of BPH ?Will continue finasteride 5 mg daily #Hx of GERD ?Continue pantoprazole Disposition: Patient seen in telemetry due to acute hypoxic respiratory failure likely secondary to pleural effusion likely secondary to community-acquired pneumonia, MRSA, continue doxycycline. Diet: Cardiac/renal GI prophylaxis: protonix DVT prophylaxis: SCDS in the setting of anemia Code: Full Case disclosed with Attending Dr. Zuleta and My senior Dr. Williamson PGY2. Kevin Hodge PGY1 Senior Resident Attestation: The patient is an 89-year-old male with significant past medical history of HFrEF 15 to 20%, on August 2024, ischemic went out of oxygen. Cardiomyopathy, CAD s/p CABG, MRSA bacteremia, ICD placement, hypertension, GERD, BPH, CKD, hypothyroidism, chronic anemia secondary to possible myelo dysplastic syndrome was admitted to hospital on 09/15/2024 with chief complaint of shortness of breath as his facility oxygen finished. This morning, doing fairly well, and was saturating 94% on 2 L oxy mask. His labs are basically at baseline with chronic anemia and CKD. He was given 1 mg IV Bumex, we will follow-up on ins and outs. He was also started on half dose of his home Entresto. We will also continue with doxycycline 100 Mg twice daily. Cefepime was discontinued. Renally dosed medications, continue with home levothyroxine 25 mcg's severe, finasteride 5 Mg daily, and pantoprazole 40 Mg daily. I discussed with and supervised the international travel consultant physician involved in the care of this patient. I personally saw and examined the patient and discussed the assessment and plan with the entire medicine team, including my attending. I agree with the assessment and plan as documented above. Rusty Williamson MD PGY2 Attending Provider Attestation/Addendum Face to face evaluation was performed by me. I have personally seen and examined the patient. I discussed the assessment and plan with the entire medicine team. I reviewed available medical records, imaging studies, laboratory results. I agree with the above subjective data, objective findings, assessment and plan except as corrected by me or noted below #Acute hypoxic respiratory failure likely secondary to # MRSA bacterial b.l PNA, #SHAHEEN pleural effusion Abxs, sputum cxs available, susceptible to tetracyclines- switch back to po doxy- patient was actually getting better already on cefepime- so maybe this is just colonization- but high risk and decide to finish Rx course.
--- NOTE | 2024-09-19 16:12 | PC.PT ---
PT assessed patient O2 needs during PT treatment. Patient desaturated to 83% when performing a sit to stand transfers and ambulation on room air. Patient returned to saturating at 94% once he was placed on 2L O2. PT recommend patient receives home O2 upon D/C. PARTS MANAGER notified.
--- NOTE | 2024-09-19 18:48 | ESPR_ITS ---
RE: CHRISTIANE COTTRELL : 1935 DATE OF SERVICE: 09/19/2024 SUBJECTIVE: Mr. Cottrell is an 89-year-old gentleman with known history of myelodysplastic syndrome along with other multiple medical mortalities. He is alert with no apparent distress. PHYSICAL EXAMINATION: General: Alert with no apparent distress. Vital Signs: He is afebrile. Vitals quite stable. HEENT: Pupil are reactive to light and accommodation. Scattered nonicteric. Neck: Supple. There are no JVD or palpable mass. Lungs: There is good air entry bilaterally. They are clear to auscultation. Heart: Regular. Abdomen: Soft. Bowel sounds are present. Extremities: 3+ peripheral pulses. There are no cyanosis. Central Nervous System: The patient is follows very simple command, but he is able to move his extremities and follow simple command. LABORATORY DATA: His blood work today has white blood cell count of 4.5, hemoglobin 7.3, hemoglobin 22.3 with platelet count of 108,000. His blood urea nitrogen is 48, creatinine 2 and glomerular filtration rate is 23. PLAN AND RECOMMENDATIONS: I have encouraged the patient that once he is discharged, he can follow up with me in my office within 7-10 days. DT: 16:50:23 TT: 18:44:00 Ref: [id number] - TID: [id number]
[2024-09-19] MEDS: DOXYCYCLINE 100 MG TABLET PO (21:39)
[2024-09-20] VITALS (10 sets, daily range): BP systolic 93–117; BP diastolic 52–61; PULSE 54–73; RESP 18–28; TEMP 36.1–36.4; O2SAT 91–98; BMI 22.2
[2024-09-20] MEDS: MIDODRINE 5 MG TABLET PO ×2 (05:23→15:00)
[2024-09-20] MEDS: MUPIROCIN OINT 2% 15 GM TUBE TOP ×2 (05:24→15:00)
[2024-09-20] MEDS: LEVOTHYROXINE SODIUM 25 MCG TABLET PO (05:24)
[2024-09-20 06:09] LABS: Basophils # (Auto) 0.1 Thou/mm3 (0.0-0.2); Basophils % (Auto) 1 % (0-2.5); Eosinophils # (Auto) 0.2 Thou/mm3 (0.0-0.5); Eosinophils % (Auto) 4 % (0-10); Hematocrit 23.2 % (41.0-53.0); Immature Granulocytes % (Auto) 1 % (0-0); Immature Granulocytes Auto 0.04 Thou/mm3 (0.00-0.00); Lymphocytes # (Auto) 0.9 Thou/mm3 (1.0-4.8); Lymphocytes % (Auto) 20 % (10-50); Mean Corpuscular HGB Conc 32.3 g/dl (31.0-37.0); Mean Corpuscular Hemoglobin 31.9 pg (25.0-35.0); Mean Corpuscular Volume 99 fL (80-100); Monocytes # (Auto) 0.3 Thou/mm3 (0.0-0.8); Monocytes % (Auto) 6 % (0-12); Neutrophils # (Auto) 3.1 Thou/mm3 (1.8-7.7); Neutrophils % (Auto) 69 % (37-80); Nucleated Red Blood Cell % 0 /100 WBC (0); Platelet Count 102 Thou/mm3 (140-440); Red Blood Count 2.35 Miln/mm3 (4.50-5.90); White Blood Count 4.5 Thou/mm3 (3.8-10.6)
[2024-09-20 06:19] LABS: Hemoglobin 7.5 g/dL (13.5-16.0)
[2024-09-20 06:28] LABS: Alanine Aminotransferase 27 U/L (10-49); Albumin, Serum 2.9 gm/dL (3.4-4.8); Albumin/Globulin Ratio 0.6 (1.2-2.2); Alkaline Phosphatase 64 U/L (46-116); Anion Gap 7 (7-16); Aspartate Amino Transferase 15 U/L (0-34); BUN/Creatinine Ratio 22 Ratio (12-20); Bilirubin,Total 0.4 mg/dL (0.3-1.2); Blood Urea Nitrogen 47 mg/dL (9-23); Calcium 8.8 mg/dL (8.3-10.6); Calcium (Corrected) 9.7 mg/dL (8.5-10.1); Carbon Dioxide 21.7 mMol/L (20.0-31.0); Chloride 106 mMol/L (98-107); Creatinine (Component) 2.1 mg/dL (0.6-1.3); Estimated Creatinine Clearance 22.4 mL/min (>60); Glucose 96 mg/dL (74-106); Magnesium 1.9 mg/dL (1.6-2.6); Osmolality,Calculated 282 (275-295); Sodium 135 mMol/L (136-145); Total Protein 7.9 gm/dL (5.7-8.2); Vancomycin,Random 19.7 mcg/mL; eGFR 30 See Note
[2024-09-20] MEDS: LEVALBUTEROL RT 0.63 MG/3 ML NEBU INH ×2 (07:02→15:36)
[2024-09-20] MEDS: SACUBITRIL 24 MG/VALSARTAN 26 MG TABLET 0.5 TAB PO (08:28)
[2024-09-20] MEDS: SENNA TABLET 1 TAB PO (08:28)
[2024-09-20] MEDS: BUMETANIDE INJ 0.25 MG/ML VIAL 4 ML 1 MG IVP (08:29)
[2024-09-20] MEDS: PANTOPRAZOLE INJ 40 MG VIAL IV (08:29)
[2024-09-20] MEDS: FINASTERIDE 5 MG TABLET PO (08:29)
[2024-09-20] MEDS: DOXYCYCLINE 100 MG TABLET PO (08:29)
[2024-09-20] MEDS: HEPARIN SOD INJ 5000 UNIT/ML VIAL SC (08:30)
[2024-09-20] MEDS: ASPIRIN EC 81 MG TABEC PO (08:30)
[2024-09-20] MEDS: FLUTICASONE NAS SPRAY 0.05% 16 GM BTL 1 SPRAY NASAL (08:32)
--- NOTE | 2024-09-20 09:47 | PC.NURSE ---
patient vs5voow 84% on room air at rest, o2sats on 2 liters,95% a rest.
[2024-09-20] MEDS: LACTULOSE SYRUP 20 GM/30 ML UDC 30 GM PO (09:55)
--- NOTE | 2024-09-20 10:17 | PD.RESDS ---
Planned Discharge Date 09/20/24 DS: Providers Provider Date of admission: 09/15/24 21:48 Primary care physician: Ray Gillette MD Admitting Provider: Samuel Bautista MD Attending Provider on Admission: Keith Quintero MD Consults: 09/15/24 22:02 Consult to Hematology Routine Comment: Consulting Provider: Emily Mace 09/15/24 22:03 Speech [Referral - MULTINEEDLE SHIRRER Gasoline Catalyst Operator] Routine Comment: New onset stutter for past few weeks 09/15/24 22:57 PT [Referral Physical Therapy] Routine Comment: Physician Instructions: Instructions: At baseline ambulates with assistance. However bedbound for past 2 weeks. Attending Provider on DC: Frank August MD Discharging Provider: Frank August MD DS: Diagnosis Problem List Completed Was Problem List Reviewed/Reconciled?: Yes Hospital Course Hospital Course Hospital course: 89-year-old male with extensive past medical history of HFrEF (15 to 20% EF 2024), ischemic cardiomyopathy, CAD s/p CABG, MRSA bacteremia, defibrillator, hypertension, GERD, BPH, CKD stage IV, hypothyroidism, chronic anemia requiring multiple blood transfusion, and potential myelodysplastic syndrome was admitted to the hospital on 09/15/2024 due to acute hypoxic respiratory failure likely 2/2 pleural effusion likely 2/2 hospital-acquired ammonia, MRSA pneumonia. Initially patient came into the ER with complaints of shortness of breath. Patient was recently discharged from the hospital prior to this admission, but it was stated that at the facility that he was after discharge his oxygen tank ran out of his oxygen and patient essentially Became hypoxic for which the patient was brought to the hospital. Initially patient was normotensive, afebrile, and hypoxic. Initial labs were relevant for low hemoglobin (8.5), hypoxia on ABG, azotemia (BUN 61 creatinine 2), elevated troponins (peaked at 0.118 and down trended), and elevated BNP more than 3280. Initial imaging included EKG which showed ventricular paced rhythm, chest x-ray which showed extensive bilateral pneumonia and mild to moderate heart failure, chest CT which showed bilateral pneumonia and minimal right pleural effusion and mild to moderate left pleural effusion, and hip/pelvis x-ray which showed no acute fracture. Patient was treated with IV antibiotics and initially his oxygen requirements did not significantly improve and he was scheduled for ultrasound-guided thoracentesis, but there was no enough fluid to be drained at this time. Patient's sputum culture did grow MRSA therefore he was placed on doxycycline. Patient's respiratory status significantly improved throughout his hospital stay. His heart failure medications were restarted and he was started also on midodrine given that he had low blood pressure. At the time of discharge patient was stable enough to be discharged home with home health. Discharge plan: Please follow-up with primary care physician 1 week after discharge Please follow-up with member of the legislative council in 1 to 2 weeks after discharge Please follow-up with your carbon coating machine operator oncologist 1 to 2 weeks after discharge Your Entresto was changed to half a tablet twice daily. You were started on doxycycline 100 mg twice daily for 6 more days after discharge Urinary Bumex has been changed to 1 mg p.o. daily Please continue please come back to the ER if symptoms persist or worsen all home medications as prescribed Problems: #Acute hypoxic respiratory failure likely secondary to #SHAHEEN pleural effusion #Hospital-acquired pneumonia #MRSA pneumonia #HFrEF (15 to 20% EF 08/2024) #CAD s/p CABG #Hx of ischemic cardiomyopathy #Acute on chronic anemia likely secondary to #Potential myelodysplastic syndrome #NSTEMI likely type II in the setting of hypoxia #CKD stage IIIb #Transaminitis, resolved #Hx of A-fib #Hx of hypothyroidism #Hx of hypertension #Hx of BPH #Hx of GERD Case disclosed with Attending Dr. August and My senior Dr. Williamson PGY2. Kevin Hodge PGY1 Senior Resident Attestation: I discussed with and supervised the internal controls analyst physician involved in the care of this patient. I personally saw and examined the patient and discussed the assessment and plan with the entire medicine team, including my attending. I agree with the discharge plan as documented above. Rusty Williamson MD PGY2 Internal Medicine Status at Discharge Overall status at discharge: patient is progressing back to baseline Time Spent with Patient Time attestation: Total time spent providing and/or coordinating discharge services:>35 min Home Health Home Health Referral Orders: 09/19/24 15:01 Home Health Referral Routine Reason For Exam: weakness, hypoxia Home-Bound The patient must either because of illness or injury, need the aid of supportive devices such as crutches, canes, wheelchairs, and walkers; the use of special transportation; or the assistance of another person in order to leave their place of residence; OR have a condition such that leaving his or her home is medically contraindicated. In addition, the patient also meets the following criteria: patient is normally unable to leave the home and leaving home requires considerable taxing effort. Addendum to Home Health Certification Practitioner's Certification: I certify that the patient has been under my care in the hospital and the care of attending physician (see below). We had a nwov-[id number] encounter on (see date below). My clinical findings indicate that the patient is home bound per the above criteria and the Home Health Services noted in these orders are medically necessary. The primary reason for the [id number]-aw-[id number] encounter is related to the fact that the patient requires home health services. Date Certifying [id number] Physician Encounter: 09/15/24 Physician's Name who will Assume Oversight for Services: Ray Gillette (PCP) Physician's Phone No.who will Assume Oversight for Service: WATER RESOURCE ENGINEER - Community Resources: No PT to Evaluate: Yes PT to evaluate and provide a treatmnet plan to increase patient's mobility and strength. Wound Care: No IV Therapy: No RN Safety Evaluation: Yes RN to evaluate and create a plan of care that will produce positive outcomes. Palliative Treatment: No Palliative treatment and evaluate the need for hospice. Home Health Aide - Personal Care: No Home Health Aide to assist with any ADL's. Exam Vital Signs Temp Pulse Resp BP Pulse Ox O2 Del Method O2 Flow Rate 97.0 F 62 20 117/61 97 Nasal Cannula 3 09/20/24 08:00 09/20/24 08:29 09/20/24 08:00 09/20/24 08:29 09/20/24 08:00 09/20/24 08:00 09/20/24 08:00 Narrative Exam General: A/O x3,mild respiratory distress, elderly male Eyes: PERRL, EOMI. anicteric, vision grossly intact. Ears: No ear pain, no ear discharge, Hearing grossly intact. Nose: No nasal discharge. Mouth/Throat: Dry mucous membranes, no redness, no lesions. Neck: Neck supple, non-tender, no cervical lymphadenopathy. Lungs: Clear Shaheen upper lobes and mildly decreased breath sounds SHAHEEN lower lobes, No accessory muscle use. Cardio: Normal S1/S2, regular rhythm, no murmurs, no JVD Abdomen: Soft, non-tender, no palpable masses, peristalsis present, no guarding or rebound. Extremities: Symmetrical, no significant deformities, no peripheral edema, non-tender, peripheral pulses presents. Skin: No rashes, no lesions, warm to touch. Neuro: No focal neurological deficits. motor and sensory intact Psych: Cooperative, appropriate mood and effect. Discharge Plan Plan Patient Disposition: Home w/HOME HEALTH Disposition Comment: PT and Oxygen Patient condition on transfer: Stable Care Plan Goals: Please follow-up with primary care physician 1 week after discharge Please follow-up with member of the legislative council in 1 to 2 weeks after discharge Please follow-up with your carbon coating machine operator oncologist 1 to 2 weeks after discharge Your Entresto was changed to half a tablet twice daily. You were started on doxycycline 100 mg twice daily for 6 more days after discharge Urinary Bumex has been changed to 1 mg p.o. daily Please continue please come back to the ER if symptoms persist or worsen all home medications as prescribed Prescriptions/Referrals Prescriptions/Med Rec: New doxycycline hyclate 100 mg tablet 100 mg PO BID Qty: 12 0RF bumetanide 1 mg tablet 1 mg PO QDAY Qty: 30 2RF Continued hydroxyzine HCl 50 mg tablet 50 mg PO QID PRN (Reason: Anxiety) levothyroxine 25 mcg tablet 25 mcg PO DAILY Patient Comments: TAKE 1 TABLET BY MOUTH EVERY DAY pantoprazole 40 mg tablet,delayed release (DR/EC) 40 mg PO DAILY Patient Comments: TAKE 1 TABLET BY MOUTH EVERY DAY 30 MINUTES BEFORE BREAKFAST finasteride 5 mg tablet 5 mg PO DAILY aspirin 81 mg Tablet 81 mg PO DAILY Hold Instructions: Resume on 10/03/23. until further notice. follow up with dr. mckee in [address] Mckee will determine when to restart. fluticasone propionate 50 mcg/actuation Jackson,Suspension 1 spray INTRANASAL BID acetaminophen [Tylenol] 325 mg tablet 650 mg PO BID PRN (Reason: pain) Qty: 14 0RF Retacrit 40,000 unit/mL solution 40,000 unit IV QWEEK Patient Comments: INJECT 40,000 UNITS UNDER THE SKIN EVERY 7 DAYS carvedilol [Coreg] 3.125 mg tablet 3.125 mg PO BID Qty: 60 0RF Rx Instructions: must administer with a meal/food Changed bumetanide 2 mg tablet 1 mg PO QDAY Qty: 30 0RF sacubitril-valsartan [Entresto] 24-26 mg tablet 0.5 tab PO BID Qty: 60 2RF Held tamsulosin 0.4 mg capsule 0.4 mg PO DAILY Hold Instructions: Resume on 09/26/24. Referrals: Nain (PCP)Ray MD [Primary Care Provider] - Patient/Caregiver Discharge Instructions Discharge Activity: as per physical therapy Education Materials: Thoracentesis Dc, Preventing Pneumonia, Treating Pneumonia Print Language: Fijian Stand Alone Forms: [employer] Award Info., Patient Portal Info Letter Discharge Order Discharge Orders: Discharge (Routine); Ordered 09/20/24 Ordered By: Kevin Hodge Quality Discharge Quality Measures VTE prophylaxis Attestestation MD Attestation I attest that I was physically present for the evaluation, physical examination, lab and imaging review of the patient with the residents. I discussed the case with the residents and agree with the findings and plans of care as documented above. Frank August MD
--- NOTE | 2024-09-20 10:21 | PC.SS ---
OXYGEN Pt is discharged in a chronic stable state and has been treated optimally and has other respiratory needs. Oxygen has been ordered due to Acute Respiratory Failure with Hypoxia.
--- NOTE | 2024-09-20 10:36 | PC.SS ---
SS sent DME order for home O2 using [facility]. SS spoke to patient's son, Dustin and provided verbal options for DME company. Pt states [facility] sounds familiar and his choice is [facility]. Son is aware pt is possible d/c for today. IMM reviewed with son.
--- NOTE | 2024-09-20 12:00 | PC.SS ---
SS communicated with Nu from [facility] they will be delivering home O2 to bedside. Pt is waiting to have martinez cath removed and void on her own before being d/c.
--- NOTE | 2024-09-20 12:02 | PC.SS ---
SS communicated with Nu from [facility] they are delivering home O2 to bedside. Son will provide transport. Bedside nurse, Gretchen is aware.
--- NOTE | 2024-09-20 12:46 | PC.CC ---
1243 ASWIalna sent referral via [facility].
--- NOTE | 2024-09-20 13:05 | PC.CM ---
Addendum entered by Swapnil Ta RN 09/20/24 19:05: sent dc summary and dc orders to [facility]. Pending start of care date. Original Note: [facility] accepted the pt. Booked [facility]. Pending start of care date.
[2024-09-20] MEDS: GLYCERIN, ADULT 1 EA SUPP 1 EACH PR (13:56)
--- NOTE | 2024-09-23 11:27 | PC.CM ---
JASWINDER START OF CARE 09/22/24
== END 2024-09-20 17:15 | disposition home health service (06) | DRG 189 ==
LOC: SERX 19:56 → SERHOLD 21:58 → S2NX 09-16 02:31
PROVIDERS: Registered Nurse General Practice; Student in an Organized Health Care Education/Training Program; Admitting Provider Student in an Organized Health Care Education/Training Program; Emergency Provider Emergency Medicine; PCP Family Medicine; Visit Provider Internal Medicine
DX: J96.21 Acute and chronic respiratory failure with hypoxia (principal); J15.212 Pneumonia due to Methicillin resistant Staphylococcus aureus; I21.A1 Myocardial infarction type 2; I13.0 Hypertensive heart and chronic kidney disease with heart failure and stage 1 through stage 4 chronic kidney disease, or unspecified chronic kidney disease; I50.22 Chronic systolic (congestive) heart failure; N18.4 Chronic kidney disease, stage 4 (severe); I42.0 Dilated cardiomyopathy; Z95.810 Presence of automatic (implantable) cardiac defibrillator; Z95.1 Presence of aortocoronary bypass graft; I25.10 Atherosclerotic heart disease of native coronary artery without angina pectoris; E03.9 Hypothyroidism, unspecified; R63.4 Abnormal weight loss; N40.0 Benign prostatic hyperplasia without lower urinary tract symptoms; Y95 Nosocomial condition; Z86.14 Personal history of Methicillin resistant Staphylococcus aureus infection; R47.1 Dysarthria and anarthria; I48.0 Paroxysmal atrial fibrillation; D69.6 Thrombocytopenia, unspecified; N40.2 Nodular prostate without lower urinary tract symptoms; N28.89 Other specified disorders of kidney and ureter; K21.9 Gastro-esophageal reflux disease without esophagitis; I25.5 Ischemic cardiomyopathy; D63.1 Anemia in chronic kidney disease
CPT/HCPCS: 36415; 36600; 71045; 71250; 73502; 76999; 80053; 80202; 80307; 81001; 82150; 82803; 82945; 83615; 83735; 83880; 84100; 84157; 84443; 84484; 85014; 85018; 85025; 85610; 85730; 87070; 87075; 87077; 87081; 87186; 87205; 87400; 87634; 87811; 89051; 89220; 93005; 94640; 94667; 96372; 97162; 99285; A9270; J0692; J0696; J1643; J2470; J3372; J3475; J3490; J7050

== ENCOUNTER → 2024-10-14 | Outpatient (CLI) | payer MEDICARE, BC, SELFPAY ==
[2024-10-14 18:43] LABS: Basophils % (Auto) 0 % (0-2.5); Eosinophils # (Auto) 0.1 Thou/mm3 (0.0-0.5); Eosinophils % (Auto) 4 % (0-10); Immature Granulocytes % (Auto) 1 % (0-0); Immature Granulocytes Auto 0.02 Thou/mm3 (0.00-0.00); Lymphocytes # (Auto) 1.1 Thou/mm3 (1.0-4.8); Lymphocytes % (Auto) 41 % (10-50); Mean Corpuscular HGB Conc 32.7 g/dl (31.0-37.0); Mean Corpuscular Volume 104 fL (80-100); Monocytes # (Auto) 0.4 Thou/mm3 (0.0-0.8); Monocytes % (Auto) 13 % (0-12); Neutrophils # (Auto) 1.1 Thou/mm3 (1.8-7.7); Neutrophils % (Auto) 41 % (37-80); Nucleated Red Blood Cell % 0 /100 WBC (0); Platelet Count 108 Thou/mm3 (140-440); RDW Standard Deviation 90.8 fL (35.1-43.9)
[2024-10-14 18:53] LABS: Alanine Aminotransferase 17 U/L (10-49); Albumin, Serum 2.9 gm/dL (3.4-4.8); Albumin/Globulin Ratio 0.6 (1.2-2.2); Alkaline Phosphatase 65 U/L (46-116); Anion Gap 11 (7-16); BUN/Creatinine Ratio 39 Ratio (12-20); Bilirubin,Total 0.2 mg/dL (0.3-1.2); Blood Urea Nitrogen 67 mg/dL (9-23); Calcium 8.5 mg/dL (8.3-10.6); Calcium (Corrected) 9.4 mg/dL (8.5-10.1); Carbon Dioxide 20.5 mMol/L (20.0-31.0); Chloride 104 mMol/L (98-107); Creatinine (Component) 1.7 mg/dL (0.6-1.3); Globulin 4.6 gm/dL (2.3-3.5); Glucose 117 mg/dL (74-106); Osmolality,Calculated 290 (275-295); Phosphorous 3.8 mg/dL (2.4-5.1); Potassium 4.8 mMol/L (3.4-5.1); Sodium 135 mMol/L (136-145); Total Protein 7.5 gm/dL (5.7-8.2); eGFR 39 See Note
[2024-10-14 19:09] LABS: Red Blood Count 1.53 Miln/mm3 (4.50-5.90)
[2024-10-14 19:10] LABS: Hematocrit 15.9 % (41.0-53.0); Hemoglobin 5.2 g/dL (13.5-16.0)
[2024-10-14 19:15] LABS: Aspartate Amino Transferase 13 U/L (0-34)
[2024-10-14 21:28] LABS: White Blood Count 2.8 Thou/mm3 (3.8-10.6)
== END | disposition home or self-care (01) ==
PROVIDERS: PCP Family Medicine; Referring Provider Internal Medicine; Visit Provider Internal Medicine Cardiovascular Disease
DX: I50.22 Chronic systolic (congestive) heart failure (principal); R79.9 Abnormal finding of blood chemistry, unspecified; R94.4 Abnormal results of kidney function studies
CPT/HCPCS: 36415; 80053; 84100; 85025

== ENCOUNTER 2024-10-15 14:58 | Emergency (ER) | payer MEDICARE, BC, SELFPAY ==
[2024-10-15] VITALS (9 sets, daily range): BP systolic 99–114; BP diastolic 49–68; PULSE 74–94; RESP 14–20; TEMP 36.5–36.7; O2SAT 96–100
--- NOTE | 2024-10-15 16:05 | PD.EDRECHK ---
ED Recheck Abnl Lab Rx-RME/HPI General Chief Complaint: Recheck/Abnormal Lab/Rx Stated Complaint: HGB 5.2 Time Seen by Provider: 10/15/24 15:39 Arrival date/time: 10/15/24 14:58 RME / HPI RME / HPI narrative: 89-year-old male patient with significant history of chronic recurrent anemia, requiring blood transfusion in the emergency room, was sent to us by PCP for hemoglobin of 5.2 that was done yesterday. Patient's been noticing has been having worsening generalized body weakness and dyspnea on exertion. Family also noticed that patient's looks paler than usual. Patient denies any vomiting blood or blood in the stool or black-colored stool. Patient was seen by specialist several times and cannot figure out the results for the chronic anemia. Denies any abdominal pain. Related Data Home Medications ?Medication ?Instructions ?Recorded ?Confirmed aspirin 81 mg tablet 81 mg PO DAILY 08/16/23 09/16/24 finasteride 5 mg tablet 5 mg PO DAILY 08/16/23 09/16/24 fluticasone propionate 50 1 spray intranasal BID 08/16/23 09/16/24 mcg/actuation nasal spray,suspension levothyroxine 25 mcg tablet 25 mcg PO DAILY 08/16/23 09/16/24 pantoprazole 40 mg tablet,delayed 40 mg PO DAILY 08/16/23 09/16/24 release tamsulosin 0.4 mg capsule 0.4 mg PO DAILY 08/16/23 09/16/24 Held on 09/19/24. Instructions: Resume on 09/26/24. hydroxyzine HCl 50 mg tablet 50 mg PO QID PRN Anxiety 07/31/24 09/16/24 epoetin jackie-epbx 40,000 unit/mL 40,000 unit IV QWEEK 09/05/24 09/16/24 injection solution (Retacrit) Previous Rx's ?Medication ?Instructions ?Recorded acetaminophen 325 mg tablet 650 mg (2 x 325 mg) PO BID PRN 07/31/24 (Tylenol) pain #14 tabs carvedilol 3.125 mg tablet (Coreg) 3.125 mg PO BID #60 tabs 09/12/24 bumetanide 1 mg tablet 1 mg PO QDAY #30 tabs 09/19/24 bumetanide 2 mg tablet 1 mg (1/2 x 2 mg) PO QDAY #30 tabs 09/19/24 doxycycline hyclate 100 mg tablet 100 mg PO BID #12 tabs 09/19/24 sacubitril 24 mg-valsartan 26 mg 0.5 tab PO BID #60 tabs 09/19/24 tablet (Entresto) Allergies Allergy/AdvReac Type Severity Reaction Status Date / Time No Known Allergies Allergy Verified 10/15/24 14:59 Review of Systems Review of Systems Narrative Review of Systems: Review of system reviewed and within normal limits except mentioned in HPI ED Exam Narrative Physical exam: VITAL SIGNS: Reviewed. GENERAL APPEARANCE: Alert and interactive, follows commands, no acute distress, HEAD AND FACE: Non-traumatic. ENT: PERRL, pale conjunctiva, eyelid no trauma, Mucous membrane moist. NECK: Supple, nontender, no nuchal rigidity. CHEST: No tenderness, no crepitus, no paradoxical movement, no retractions. LUNGS: Clear, well ventilated, symmetric, no rales, no wheezing, no ronchi, no stridor, good breath sounds bilaterally. HEART: Regular rate, regular rhythm, no murmur, no gallops. ABDOMEN: Soft, positive bowel sounds, nondistended, no guarding, nontender, no rebound, no masses, RECTAL: Deferred. GENITAL: Deferred. NEUROLOGICAL: Gross motor function intact sensory function intact, Appropriate for age. MUSCULOSKELETAL: low back nontender, full range of motion. EXTREMITIES: Nontender, full range of motion. SKIN: Color pale, dry, no rash, no lacerations, no abrasions, no contusions. LYMPHATICS: Deferred. Course Quality Measures none Orders Category Date Time Status Transfuse,blood/blood products ONCE Care 10/15/24 16:05 Active Type and Screen Stat Lab 10/15/24 16:11 Results prbc [Red Blood Cells] Stat Lab 10/15/24 16:11 Results Vital Signs Vital signs: Vital Signs Temperature 98.0 F 10/15/24 15:40 Pulse Rate 94 10/15/24 15:40 Respiratory Rate 20 10/15/24 15:40 Blood Pressure 99/60 10/15/24 15:40 Pulse Oximetry (%) 99 10/15/24 15:40 Oxygen Delivery Method Room Air 10/15/24 15:40 Recheck / Abnormal Lab / Rx MDM Narrative MDM Narrative:: 89-year-old male patient with significant history of chronic recurrent anemia, requiring blood transfusion in the emergency room, was sent to us by PCP for hemoglobin of 5.2 that was done yesterday. Patient's been noticing has been having worsening generalized body weakness and dyspnea on exertion. Family also noticed that patient's looks paler than usual. Patient denies any vomiting blood or blood in the stool or black-colored stool. Patient was seen by specialist several times and cannot figure out the results for the chronic anemia. Denies any abdominal pain. Patient's hemoglobin yesterday was noted to be 5.2. I did not repeat the hemoglobin. Patient received 3 units of packed RBC in the emergency room. Patient tolerated the procedure well. Patient data External records reviewed:: None Clinical information provided by:: patient and family Social determinants that could affect healthcare access:: none Patient has the following chronic illnesses:: None How is presenting disease/condition affected by chronic disease/condition?: caused by Evaluation data The following diagnostics were reviewed and interpreted by me:: lab results Lab and/or radiology exams considered but not ordered:: None Interpretation Summary: See results in MDM Medications / Prescriptions Medications or Prescriptions considered but not ordered:: None Medication administrations:: 3 units of packed RBC Consultations Consultation(s) initiated? (list below): No Diagnosis Recheck Differential Diagnosis: other (Anemia, anemia of chronic disease, iron deficiency anemia) Most likely diagnosis given after review of the tests above:: Severe anemia Admission Indicated Admission indicated?: not indicated Explain why admission is indicated or not indicated:: Stable Admission Request Was there a request for admission?: No Disposition Plan Disposition Plan: Discharge Discharge Attestation Discharge Attestation: The patient was given an opportunity to ask questions and understood the discharge instructions. Discharge instructions specifically effects, indications for sooner follow up or return to the emergency department, and the expected course of current diagnosis. Patient condition: Stable Discharge Plan Plan Patient Disposition: HOME (Self Care) Disposition Comment: Stable Prescriptions/Referrals Prescriptions/Med Rec: No Action hydroxyzine HCl 50 mg tablet 50 mg PO QID PRN (Reason: Anxiety) levothyroxine 25 mcg tablet 25 mcg PO DAILY Patient Comments: TAKE 1 TABLET BY MOUTH EVERY DAY pantoprazole 40 mg tablet,delayed release (DR/EC) 40 mg PO DAILY Patient Comments: TAKE 1 TABLET BY MOUTH EVERY DAY 30 MINUTES BEFORE BREAKFAST finasteride 5 mg tablet 5 mg PO DAILY tamsulosin 0.4 mg capsule 0.4 mg PO DAILY aspirin 81 mg Tablet 81 mg PO DAILY fluticasone propionate 50 mcg/actuation [place],Suspension 1 spray INTRANASAL BID acetaminophen [Tylenol] 325 mg tablet 650 mg PO BID PRN (Reason: pain) Qty: 14 0RF bumetanide 2 mg tablet 1 mg PO QDAY Qty: 30 0RF doxycycline hyclate 100 mg tablet 100 mg PO BID Qty: 12 0RF bumetanide 1 mg tablet 1 mg PO QDAY Qty: 30 2RF sacubitril-valsartan [Entresto] 24-26 mg tablet 0.5 tab PO BID Qty: 60 2RF Retacrit 40,000 unit/mL solution 40,000 unit IV QWEEK Patient Comments: INJECT 40,000 UNITS UNDER THE SKIN EVERY 7 DAYS carvedilol [Coreg] 3.125 mg tablet 3.125 mg PO BID Qty: 60 0RF Rx Instructions: must administer with a meal/food Referrals: Nain (PCP)Ray MD [Primary Care Provider] - In 1 week Problem List Clinical Impression: Severe anemia Patient/Caregiver Discharge Instructions Discharge Activity: activity as tolerated Education Materials: Anemia Additional Instructions: Thank you for the opportunity for serving you today. You are stable for discharged . You are advised to: Follow-up with your PCP in 1 to 2 days Return to ED for worsening of symptoms Print Language: Gambian Stand Alone Forms: Ebony Award Info., Patient Portal Info Letter PA/ENRICO Supervising Physician PA/ENRICO Supervising Physician: MD Myke
[2024-10-16 00:22] VITALS: BP 96/58; PULSE 83; RESP 20; TEMP 36.7; O2SAT 98
[2024-10-16 00:24] VITALS: BP 100/59; PULSE 85; RESP 20; TEMP 36.7; O2SAT 96
[2024-10-16 00:40] VITALS: BP 121/67; PULSE 79; RESP 16; TEMP 36.7; O2SAT 98
[2024-10-16 00:55] VITALS: BP 115/65; PULSE 76; RESP 17; TEMP 36.7; O2SAT 95
[2024-10-16 02:11] VITALS: BP 116/64; PULSE 77; RESP 16; TEMP 36.6
== END 2024-10-16 02:37 | disposition home or self-care (01) ==
PROVIDERS: Emergency Provider Emergency Medicine; PCP Family Medicine
DX: D64.9 Anemia, unspecified (principal)
CPT/HCPCS: 36415; 36430; 86850; 86900; 86901; 86923; 99285; P9016

== ENCOUNTER 2024-10-20 10:38 | Outpatient (RCR) | payer MEDICARE, BC, SELFPAY | END 2024-10-24 23:59 | disposition home or self-care (01) | LOC: SCTC 10:38 | PROVIDERS: PCP Family Medicine; Referring Provider Family Medicine; Visit Provider Nurse Practitioner Family | DX: D46.9 Myelodysplastic syndrome, unspecified (principal) | CPT/HCPCS: 99212; G0463 ==

== ENCOUNTER 2024-11-21 08:19 | Outpatient (RCR) | payer MEDICARE, BC, SELFPAY ==
[2024-10-28 09:06] LABS: Basophils % (Auto) 1 % (0-2.5); Eosinophils # (Auto) 0.1 Thou/mm3 (0.0-0.5); Eosinophils % (Auto) 4 % (0-10); Hematocrit 24.2 % (41.0-53.0); Immature Granulocytes % (Auto) 0 % (0-0); Immature Granulocytes Auto 0.01 Thou/mm3 (0.00-0.00); Lymphocytes # (Auto) 0.9 Thou/mm3 (1.0-4.8); Lymphocytes % (Auto) 41 % (10-50); Mean Corpuscular HGB Conc 32.6 g/dl (31.0-37.0); Mean Corpuscular Volume 98 fL (80-100); Monocytes # (Auto) 0.2 Thou/mm3 (0.0-0.8); Monocytes % (Auto) 10 % (0-12); Neutrophils % (Auto) 44 % (37-80); Nucleated Red Blood Cell % 0 /100 WBC (0); Platelet Count 110 Thou/mm3 (140-440); RDW Standard Deviation 69.7 fL (35.1-43.9); Red Blood Count 2.47 Miln/mm3 (4.50-5.90)
[2024-10-28 09:10] LABS: Hemoglobin 7.9 g/dL (13.5-16.0)
[2024-10-28 09:15] LABS: White Blood Count 2.3 Thou/mm3 (3.8-10.6)
[2024-10-28 10:21] LABS: Alanine Aminotransferase 17 U/L (10-49); Albumin, Serum 3.3 gm/dL (3.4-4.8); Albumin/Globulin Ratio 0.7 (1.2-2.2); Alkaline Phosphatase 58 U/L (46-116); Anion Gap 7 (7-16); Aspartate Amino Transferase 27 U/L (0-34); BUN/Creatinine Ratio 30 Ratio (12-20); Bilirubin,Total 0.4 mg/dL (0.3-1.2); Blood Urea Nitrogen 45 mg/dL (9-23); Calcium 8.7 mg/dL (8.3-10.6); Calcium (Corrected) 9.3 mg/dL (8.5-10.1); Carbon Dioxide 25.4 mMol/L (20.0-31.0); Chloride 108 mMol/L (98-107); Creatinine (Component) 1.5 mg/dL (0.6-1.3); Globulin 4.8 gm/dL (2.3-3.5); Glucose 90 mg/dL (74-106); Osmolality,Calculated 290 (275-295); Sodium 140 mMol/L (136-145); Total Protein 8.1 gm/dL (5.7-8.2); eGFR 45 See Note
[2024-11-06 08:32] LABS: Basophils % (Auto) 1 % (0-2.5); Eosinophils % (Auto) 1 % (0-10); Hematocrit 23.7 % (41.0-53.0); Immature Granulocytes % (Auto) 1 % (0-0); Immature Granulocytes Auto 0.01 Thou/mm3 (0.00-0.00); Lymphocytes # (Auto) 0.8 Thou/mm3 (1.0-4.8); Lymphocytes % (Auto) 38 % (10-50); Mean Corpuscular HGB Conc 32.1 g/dl (31.0-37.0); Mean Corpuscular Hemoglobin 31.3 pg (25.0-35.0); Mean Corpuscular Volume 98 fL (80-100); Monocytes # (Auto) 0.3 Thou/mm3 (0.0-0.8); Monocytes % (Auto) 12 % (0-12); Neutrophils % (Auto) 49 % (37-80); Nucleated Red Blood Cell % 0 /100 WBC (0); Platelet Count 94 Thou/mm3 (140-440); RDW Standard Deviation 63.8 fL (35.1-43.9); Red Blood Count 2.43 Miln/mm3 (4.50-5.90)
[2024-11-06 09:04] LABS: Hemoglobin 7.6 g/dL (13.5-16.0)
[2024-11-13 09:09] LABS: Basophils % (Auto) 1 % (0-2.5); Eosinophils # (Auto) 0.1 Thou/mm3 (0.0-0.5); Eosinophils % (Auto) 3 % (0-10); Hematocrit 23.1 % (41.0-53.0); Immature Granulocytes % (Auto) 1 % (0-0); Immature Granulocytes Auto 0.02 Thou/mm3 (0.00-0.00); Lymphocytes # (Auto) 0.6 Thou/mm3 (1.0-4.8); Lymphocytes % (Auto) 32 % (10-50); Mean Corpuscular HGB Conc 32.9 g/dl (31.0-37.0); Mean Corpuscular Volume 94 fL (80-100); Monocytes # (Auto) 0.2 Thou/mm3 (0.0-0.8); Monocytes % (Auto) 8 % (0-12); Neutrophils # (Auto) 1.1 Thou/mm3 (1.8-7.7); Neutrophils % (Auto) 55 % (37-80); Nucleated Red Blood Cell % 0 /100 WBC (0); Platelet Count 81 Thou/mm3 (140-440); RDW Standard Deviation 62.5 fL (35.1-43.9); Red Blood Count 2.45 Miln/mm3 (4.50-5.90)
[2024-11-13 09:27] LABS: Alanine Aminotransferase 11 U/L (10-49); Albumin/Globulin Ratio 0.7 (1.2-2.2); Alkaline Phosphatase 62 U/L (46-116); Anion Gap 6 (7-16); Aspartate Amino Transferase 11 U/L (0-34); BUN/Creatinine Ratio 29 Ratio (12-20); Bilirubin,Total 0.4 mg/dL (0.3-1.2); Blood Urea Nitrogen 43 mg/dL (9-23); Calcium 8.5 mg/dL (8.3-10.6); Calcium (Corrected) 9.3 mg/dL (8.5-10.1); Carbon Dioxide 23.8 mMol/L (20.0-31.0); Chloride 106 mMol/L (98-107); Creatinine (Component) 1.5 mg/dL (0.6-1.3); Globulin 4.4 gm/dL (2.3-3.5); Glucose 117 mg/dL (74-106); Osmolality,Calculated 283 (275-295); Potassium 4.2 mMol/L (3.4-5.1); Sodium 136 mMol/L (136-145); Total Protein 7.4 gm/dL (5.7-8.2); eGFR 45 See Note
[2024-11-13 09:30] LABS: Hemoglobin 7.6 g/dL (13.5-16.0)
[2024-11-20 14:55] LABS: Hematocrit 22.9 % (41.0-53.0); Mean Corpuscular HGB Conc 33.6 g/dl (31.0-37.0); Mean Corpuscular Hemoglobin 31.8 pg (25.0-35.0); Mean Corpuscular Volume 95 fL (80-100); Red Blood Count 2.42 Miln/mm3 (4.50-5.90)
[2024-11-20 14:56] LABS: Basophils % (Auto) 1 % (0-2.5); Eosinophils % (Auto) 1 % (0-10); Immature Granulocytes % (Auto) 1 % (0-0); Immature Granulocytes Auto 0.02 Thou/mm3 (0.00-0.00); Lymphocytes # (Auto) 0.7 Thou/mm3 (1.0-4.8); Lymphocytes % (Auto) 32 % (10-50); Monocytes # (Auto) 0.2 Thou/mm3 (0.0-0.8); Monocytes % (Auto) 9 % (0-12); Neutrophils # (Auto) 1.2 Thou/mm3 (1.8-7.7); Neutrophils % (Auto) 56 % (37-80); Nucleated Red Blood Cell % 0 /100 WBC (0); Platelet Count 81 Thou/mm3 (140-440); RDW Standard Deviation 61.6 fL (35.1-43.9)
[2024-11-20 15:02] LABS: Hemoglobin 7.7 g/dL (13.5-16.0); White Blood Count 2.2 Thou/mm3 (3.8-10.6)
--- NOTE | 2024-11-30 23:33 | CTCFLWUP_ITS ---
Patient: CHRISTIANE COTTRELL : 1935 Page 3 of 5 FOLLOW UP NOTE DATE OF SERVICE: 11/12/2024 NAME: CHRISTIANE COTTRELL ACCOUNT: [id number] : 1935 AGE: 89 INTERVAL HISTORY: Patient is feeling tired. Patient gets transfusions as needed. Patient does not like going to the hospital for a transfusion and requesting to schedule it in the clinic. 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 Mr. Cottrell was initially diagnosed with anemia in March 2023. Since then he received multiple packed cell transfusions. Was previously on Procrit 30,000 units subcu every other week. 06/19/2023:: Hemoglobin 8.1, MCV 101, WBC 7.7, monocytes 1.0, platelets 268,000. 07/09/2023: Hemoglobin 7.6, MCV 102, WBC 7.1, monocytes 1.2, platelets 288,000. 09/26/2023: Hemoglobin 7.0, MCV 104, WBC 6.0, monocytes 0.9, platelets 241,000. 10/30/2023: Hemoglobin 7.9, MCV 108, WBC 7.7, monocytes 1.1, platelets 253,000. Creatinine 2 point 11/27/2023: Hemoglobin 7.5, MCV 108, WBC 6.5, monocyte count 0.7, platelets 277,000. Creatinine 1.8 01/09/2024: Bone marrow biopsy and aspiration 01/22/2024: Hemoglobin 9.7, WBC 7.4, ANC 4.8, platelets 319,000. 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 Tobacco Use:?Smoked 1/2 PPD from age [age] then Quit ETOH?Use:?Socially Drug?Note:?Denies Social?History?Note:?Lives?wtih? MEDICATIONS: 1. aspirin - 81 mg 1 tab Daily 2. atorvastatin - 40 mg 1 tab Daily 3. carvedilol - 25 mg 1 tab Twice a Day 4. Entresto - 49-51 mg 1 tab Twice a Day 5. furosemide - 40 mg 1 tab Daily 6. levothyroxine - 25 mcg 1 tab Daily 7. magnesium oxide - 400 mg magnesium 1 tab Daily 8. pantoprazole - 40 mg 1 Daily 9. tamsulosin - 0.4 mg 1 Capsule Daily Medications Last Reconciled by Alana Fontana MA on 11/12/2024 ALLERGIES: No Known Drug Allergies REVIEW OF SYSTEMS: A complete 14-point review of systems was performed and is negative except as noted in interval history. PHYSICAL EXAMINATION: VITAL SIGNS: Temperature?99, B/P?107/61, Oxygen?Saturation?97% PAIN: 0 - No pain ECOG Performance Status: 2 - Symptomatic; ambulatory; capable of self-care; >50% of waking hrs. not in bed GENERAL APPEARANCE: Appears well, in no apparent distress, appropriately interactive. HEENT: Normocephalic, no temporal wasting, normal conjunctiva, no scleral icterus, normal hearing, lips without lesions, neck normal range of motion. CARDIOVASCULAR: Not assessed. PULMONARY: Normal respiratory effort, no respiratory distress or use of accessory muscles, speaking in full sentences, no tachypnea. EXTREMITIES: Using wheelchair SKIN: Normal skin appearance. NEUROLOGIC: Alert and oriented x4. PSHYCHIATRIC: Appropriate affect, mood normal, behavior normal, intact thought and speech. LABORATORY DATA: I have personally reviewed and interpreted each of the patient?s relevant lab tests, abnormal findings are below: Date 11/13/24 11/20/24 11/26/24 ??WHITE?BLOOD?COUNT?(Thou/mm3) ? 2.2?L 2.1?L ??RED?BLOOD?COUNT?(Miln/mm3) ? 2.42?L 2.69?L ??HEMOGLOBIN?(gm/dl) ? 7.7?L 8.4?L ??HEMATOCRIT?(%) ? 22.9?L 25.3?L ??PLATELET?COUNT?(Thou/mm3) ? 81?L 68?L ??NEUTROPHILS?%,?AUTO?(%) ? 56 55 ??LYMPH?%,?AUTO?(%) ? 32 29 ??NEUTROPHILS,?AUTO?(Thou/mm3) ? 1.2?L 1.2?L ??GLUCOSE,RANDOM?(mg/dL) 117?H ? 100 ??BLOOD?UREA?NITROGEN?(mg/dL) 43?H ? 46?H ??CREATININE?(mg/dL) 1.50?H ? 1.60?H ??SODIUM?(mmol/L) 136 ? 139 ??POTASSIUM?(mmol/L) 4.2 ? 4.2 ??CHLORIDE?(mmol/L) 106 ? 110?H ??CrCl?(CandG)?(ml/min) 36.86 ? 35.06 ??AST/SGOT?(Unit/L) 11 ? 18 ??ALT/SGPT?(Unit/L) 11 ? 23 ??ALKALINE?PHOSPHATASE?(Unit/L) 62 ? 66 ??BILIRUBIN,?TOTAL?(mg/dL) 0.4 ? 0.4 ??PROTEIN?TOTAL?(gm/dl) 7.4 ? 7.4 ??ALBUMIN,?SERUM?(gm/dl) 3.0?L ? 3.1?L ??GLOBULIN?(gm/dl) 4.4?H ? 4.3?H ??ALBUMIN/GLOBULIN?RATIO 0.7?L ? 0.7?L ??CALCIUM,?SERUM?(mg/dL) 8.5 ? 8.6 ??CALCIUM?SERUM?(CORRECTED)?(mg/dL) 9.3 ? 9.3 ASSESSMENT/PLAN: 1. 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 Patient was previously following up with Dr. Kirk, oncologist in [place], would like to start following up with us for MDS treatment, patient lives here in [place]. Previously, patient was receiving Procrit 40,000 units subcu every week due to anemia according to patient by nephrology, patient and were advised that due to MDS diagnosis, Procrit was not recommended, stopped 10/21/2024. Continue with standing order for blood transfusion: 1 unit of PRBCs for hemoglobin less than 8, 2 units of PRBCs for hemoglobin less than 7 every week. Port for transfusions Will start on Vidaza to reduce dependence on transfusions 2. Continue following up with oil well services field supervisor and PCP for other medical conditions CBC weekly Standing order for blood transfusion CBC and CMP prior to follow-up ORDERS: Order # Description [id number] 1 Unit PRBC [id number] + PSA [id number] MRI + With Contrast [id number] MD Follow Up 2 Months [id number] 1 Unit PRBC [id number] Type and Crossmatch + 1 Unit PRBC [id number] CBC + Comprehensive Metabolic Panel [id number] Lab Appointment RETURN TO CLINIC: 4 weeks BILLING AND COMPLIANCE: I reviewed external records from providers outside my specialty as summarized above. I spent a total of 50 minutes on this patient?s care on the day of their visit excluding time spent related to any billed procedures. This time includes time spent with the patient as well as time spent documenting in the medical record, reviewing patients records and tests, obtaining history, placing orders, communicating with other healthcare professionals, counseling the patient, family or caregiver, and/or care coordination for the diagnoses above. Electronically Signed by: Mikie Corona MD T: 11:30 PM CC: Henrik?Ridge? PCP: Ray Gillette Referring: Ray Gillette This document was completed utilizing speech recognition software. Grammatical errors, random word insertions, pronoun errors, and incomplete sentences are an occasional consequence of this system due to software limitations, ambient noise, and hardware issues. Any formal questions or concerns about the content, text or information contained within the body of this dictation should be directly addressed to the provider for clarification.
== END 2024-11-24 23:59 | disposition home or self-care (01) ==
LOC: SCTC 08:19
PROVIDERS: Nurse Practitioner Family; PCP Family Medicine; Referring Provider Family Medicine; Visit Provider Internal Medicine Hematology & Oncology
DX: D46.9 Myelodysplastic syndrome, unspecified (principal)
CPT/HCPCS: 36430; 36591; 80053; 85025; 86850; 86900; 86901; 86923; 99212; A4216; J1642; J7040; P9016; P9040; G0463

== ENCOUNTER 2024-12-18 09:14 | Outpatient (RCR) | payer MEDICARE, BC, SELFPAY ==
[2024-11-26 11:06] LABS: Basophils # (Auto) 0.1 Thou/mm3 (0.0-0.2); Basophils % (Auto) 3 % (0-2.5); Eosinophils # (Auto) 0.1 Thou/mm3 (0.0-0.5); Eosinophils % (Auto) 3 % (0-10); Hematocrit 25.3 % (41.0-53.0); Immature Granulocytes % (Auto) 1 % (0-0); Immature Granulocytes Auto 0.02 Thou/mm3 (0.00-0.00); Lymphocytes # (Auto) 0.6 Thou/mm3 (1.0-4.8); Lymphocytes % (Auto) 29 % (10-50); Mean Corpuscular HGB Conc 33.2 g/dl (31.0-37.0); Mean Corpuscular Hemoglobin 31.2 pg (25.0-35.0); Mean Corpuscular Volume 94 fL (80-100); Monocytes # (Auto) 0.2 Thou/mm3 (0.0-0.8); Monocytes % (Auto) 9 % (0-12); Neutrophils # (Auto) 1.2 Thou/mm3 (1.8-7.7); Neutrophils % (Auto) 55 % (37-80); Nucleated Red Blood Cell % 0 /100 WBC (0); Red Blood Count 2.69 Miln/mm3 (4.50-5.90)
[2024-11-26 11:14] LABS: Hemoglobin 8.4 g/dL (13.5-16.0); Platelet Count 68 Thou/mm3 (140-440); White Blood Count 2.1 Thou/mm3 (3.8-10.6)
[2024-11-26 11:17] LABS: Alanine Aminotransferase 23 U/L (10-49); Albumin, Serum 3.1 gm/dL (3.4-4.8); Albumin/Globulin Ratio 0.7 (1.2-2.2); Alkaline Phosphatase 66 U/L (46-116); Anion Gap 7 (7-16); Aspartate Amino Transferase 18 U/L (0-34); BUN/Creatinine Ratio 29 Ratio (12-20); Bilirubin,Total 0.4 mg/dL (0.3-1.2); Blood Urea Nitrogen 46 mg/dL (9-23); Calcium 8.6 mg/dL (8.3-10.6); Calcium (Corrected) 9.3 mg/dL (8.5-10.1); Carbon Dioxide 22.5 mMol/L (20.0-31.0); Chloride 110 mMol/L (98-107); Creatinine (Component) 1.6 mg/dL (0.6-1.3); Globulin 4.3 gm/dL (2.3-3.5); Glucose 100 mg/dL (74-106); Osmolality,Calculated 289 (275-295); Potassium 4.2 mMol/L (3.4-5.1); Sodium 139 mMol/L (136-145); Total Protein 7.4 gm/dL (5.7-8.2); eGFR 41 See Note
[2024-11-26 13:26] LABS: Slide Review Platelets confirmed
[2024-12-03 12:02] LABS: Basophils % (Auto) 3 % (0-2.5); Eosinophils % (Auto) 0 % (0-10); Hematocrit 21.9 % (41.0-53.0); Immature Granulocytes % (Auto) 1 % (0-0); Immature Granulocytes Auto 0.02 Thou/mm3 (0.00-0.00); Lymphocytes # (Auto) 0.6 Thou/mm3 (1.0-4.8); Lymphocytes % (Auto) 38 % (10-50); Mean Corpuscular HGB Conc 33.8 g/dl (31.0-37.0); Mean Corpuscular Hemoglobin 31.5 pg (25.0-35.0); Mean Corpuscular Volume 93 fL (80-100); Monocytes # (Auto) 0.2 Thou/mm3 (0.0-0.8); Monocytes % (Auto) 9 % (0-12); Neutrophils # (Auto) 0.8 Thou/mm3 (1.8-7.7); Neutrophils % (Auto) 49 % (37-80); Nucleated Red Blood Cell % 0 /100 WBC (0); RDW Standard Deviation 59.6 fL (35.1-43.9); Red Blood Count 2.35 Miln/mm3 (4.50-5.90)
[2024-12-03 12:05] LABS: Hemoglobin 7.4 g/dL (13.5-16.0); Platelet Count 49 Thou/mm3 (140-440); White Blood Count 1.6 Thou/mm3 (3.8-10.6)
[2024-12-03 12:29] LABS: Alanine Aminotransferase 17 U/L (10-49); Albumin/Globulin Ratio 0.7 (1.2-2.2); Alkaline Phosphatase 63 U/L (46-116); Anion Gap 7 (7-16); Aspartate Amino Transferase 14 U/L (0-34); BUN/Creatinine Ratio 28 Ratio (12-20); Bilirubin,Total 0.4 mg/dL (0.3-1.2); Blood Urea Nitrogen 51 mg/dL (9-23); Calcium 8.5 mg/dL (8.3-10.6); Calcium (Corrected) 9.3 mg/dL (8.5-10.1); Carbon Dioxide 22.6 mMol/L (20.0-31.0); Chloride 107 mMol/L (98-107); Creatinine (Component) 1.8 mg/dL (0.6-1.3); Globulin 4.3 gm/dL (2.3-3.5); Glucose 140 mg/dL (74-106); Osmolality,Calculated 289 (275-295); Potassium 4.1 mMol/L (3.4-5.1); Sodium 137 mMol/L (136-145); Total Protein 7.3 gm/dL (5.7-8.2); eGFR 36 See Note
[2024-12-03 12:40] LABS: Slide Review Platelets confirmed
[2024-12-08 10:57] LABS: Alanine Aminotransferase 21 U/L (10-49); Albumin, Serum 3.1 gm/dL (3.4-4.8); Albumin/Globulin Ratio 0.7 (1.2-2.2); Alkaline Phosphatase 61 U/L (46-116); Anion Gap 7 (7-16); Aspartate Amino Transferase 16 U/L (0-34); BUN/Creatinine Ratio 29 Ratio (12-20); Bilirubin,Total 0.5 mg/dL (0.3-1.2); Blood Urea Nitrogen 52 mg/dL (9-23); Calcium 8.7 mg/dL (8.3-10.6); Calcium (Corrected) 9.4 mg/dL (8.5-10.1); Carbon Dioxide 23.6 mMol/L (20.0-31.0); Chloride 108 mMol/L (98-107); Creatinine (Component) 1.8 mg/dL (0.6-1.3); Globulin 4.4 gm/dL (2.3-3.5); Glucose 140 mg/dL (74-106); Osmolality,Calculated 293 (275-295); Potassium 4.3 mMol/L (3.4-5.1); Sodium 139 mMol/L (136-145); Total Protein 7.5 gm/dL (5.7-8.2); eGFR 36 See Note
[2024-12-08 11:03] LABS: Basophils # (Auto) 0.1 Thou/mm3 (0.0-0.2); Basophils % (Auto) 3 % (0-2.5); Eosinophils # (Auto) 0.1 Thou/mm3 (0.0-0.5); Eosinophils % (Auto) 3 % (0-10); Hematocrit 23.4 % (41.0-53.0); Immature Granulocytes % (Auto) 1 % (0-0); Immature Granulocytes Auto 0.01 Thou/mm3 (0.00-0.00); Lymphocytes # (Auto) 0.6 Thou/mm3 (1.0-4.8); Lymphocytes % (Auto) 33 % (10-50); Mean Corpuscular HGB Conc 34.2 g/dl (31.0-37.0); Mean Corpuscular Hemoglobin 31.4 pg (25.0-35.0); Mean Corpuscular Volume 92 fL (80-100); Monocytes # (Auto) 0.2 Thou/mm3 (0.0-0.8); Monocytes % (Auto) 10 % (0-12); Neutrophils % (Auto) 51 % (37-80); Nucleated Red Blood Cell % 0 /100 WBC (0); RDW Standard Deviation 54.6 fL (35.1-43.9); Red Blood Count 2.55 Miln/mm3 (4.50-5.90)
[2024-12-08 11:37] LABS: White Blood Count 1.9 Thou/mm3 (3.8-10.6)
[2024-12-08 11:38] LABS: Platelet Count 51 Thou/mm3 (140-440)
[2024-12-08 11:46] LABS: Slide Review Platelets confirmed
[2024-12-08 11:49] LABS: Path Review Blood Smear Sent to Pathologist
[2024-12-18 09:57] LABS: Eosinophils % (Auto) 1 % (0-10); Lymphocytes % (Auto) 40 % (10-50); Mean Corpuscular Volume 95 fL (80-100); Monocytes # (Auto) 0.1 Thou/mm3 (0.0-0.8); Monocytes % (Auto) 5 % (0-12); Neutrophils # (Auto) 0.7 Thou/mm3 (1.8-7.7); Nucleated Red Blood Cell % 0 /100 WBC (0)
[2024-12-18 10:14] LABS: Basophils % (Auto) 1 % (0-2.5); Hematocrit 20.9 % (41.0-53.0); Immature Granulocytes % (Auto) 1 % (0-0); Immature Granulocytes Auto 0.02 Thou/mm3 (0.00-0.00); Lymphocytes # (Auto) 0.6 Thou/mm3 (1.0-4.8); Mean Corpuscular HGB Conc 33.5 g/dl (31.0-37.0); Mean Corpuscular Hemoglobin 31.7 pg (25.0-35.0); Neutrophils % (Auto) 52 % (37-80); RDW Standard Deviation 59.6 fL (35.1-43.9); Red Blood Count 2.21 Miln/mm3 (4.50-5.90)
[2024-12-18 10:18] LABS: Platelet Count 36 Thou/mm3 (140-440); White Blood Count 1.4 Thou/mm3 (3.8-10.6)
[2024-12-18 10:40] LABS: Alanine Aminotransferase 18 U/L (10-49); Albumin, Serum 3.1 gm/dL (3.4-4.8); Albumin/Globulin Ratio 0.9 (1.2-2.2); Alkaline Phosphatase 57 U/L (46-116); Anion Gap 8 (7-16); Aspartate Amino Transferase 13 U/L (0-34); BUN/Creatinine Ratio 32 Ratio (12-20); Bilirubin,Total 0.6 mg/dL (0.3-1.2); Blood Urea Nitrogen 48 mg/dL (9-23); Calcium 8.7 mg/dL (8.3-10.6); Calcium (Corrected) 9.4 mg/dL (8.5-10.1); Carbon Dioxide 22.5 mMol/L (20.0-31.0); Chloride 108 mMol/L (98-107); Creatinine (Component) 1.5 mg/dL (0.6-1.3); Globulin 3.6 gm/dL (2.3-3.5); Glucose 170 mg/dL (74-106); Osmolality,Calculated 292 (275-295); Sodium 138 mMol/L (136-145); Total Protein 6.7 gm/dL (5.7-8.2); eGFR 45 See Note
[2024-12-18 13:13] LABS: Slide Review Platelets confirmed
== END 2024-12-24 23:59 | disposition home or self-care (01) ==
LOC: SCTC 09:14
PROVIDERS: PCP Family Medicine; Referring Provider Family Medicine; Visit Provider Internal Medicine Hematology & Oncology
DX: Z51.11 Encounter for antineoplastic chemotherapy (principal); D46.9 Myelodysplastic syndrome, unspecified
CPT/HCPCS: 36430; 36591; 80053; 84153; 85025; 86850; 86900; 86901; 86923; 96401; A4216; J1642; J7040; J9025; P9016

== ENCOUNTER 2025-01-22 08:19 | Outpatient (RCR) | payer MEDICARE, BC, SELFPAY ==
[2024-12-31 09:20] LABS: Basophils % (Auto) 1 % (0-2.5); Eosinophils % (Auto) 1 % (0-10); Immature Granulocytes % (Auto) 4 % (0-0); Immature Granulocytes Auto 0.06 Thou/mm3 (0.00-0.00); Lymphocytes # (Auto) 0.6 Thou/mm3 (1.0-4.8); Lymphocytes % (Auto) 39 % (10-50); Mean Corpuscular HGB Conc 34.6 g/dl (31.0-37.0); Mean Corpuscular Hemoglobin 31.1 pg (25.0-35.0); Mean Corpuscular Volume 90 fL (80-100); Monocytes # (Auto) 0.2 Thou/mm3 (0.0-0.8); Monocytes % (Auto) 12 % (0-12); Neutrophils # (Auto) 0.7 Thou/mm3 (1.8-7.7); Neutrophils % (Auto) 44 % (37-80); Nucleated Red Blood Cell % 0 /100 WBC (0); RDW Standard Deviation 53.1 fL (35.1-43.9); Red Blood Count 2.09 Miln/mm3 (4.50-5.90)
[2024-12-31 09:30] LABS: Hematocrit 18.8 % (41.0-53.0); White Blood Count 1.5 Thou/mm3 (3.8-10.6)
[2024-12-31 09:33] LABS: Platelet Count 56 Thou/mm3 (140-440)
[2024-12-31 09:38] LABS: Alanine Aminotransferase 18 U/L (10-49); Albumin, Serum 3.4 gm/dL (3.4-4.8); Albumin/Globulin Ratio 0.9 (1.2-2.2); Alkaline Phosphatase 69 U/L (46-116); Anion Gap 8 (7-16); Aspartate Amino Transferase 13 U/L (0-34); BUN/Creatinine Ratio 31 Ratio (12-20); Bilirubin,Total 0.8 mg/dL (0.3-1.2); Blood Urea Nitrogen 52 mg/dL (9-23); Calcium 8.5 mg/dL (8.3-10.6); Carbon Dioxide 23.5 mMol/L (20.0-31.0); Chloride 108 mMol/L (98-107); Creatinine (Component) 1.7 mg/dL (0.6-1.3); Globulin 3.6 gm/dL (2.3-3.5); Glucose 109 mg/dL (74-106); Osmolality,Calculated 292 (275-295); Potassium 4.4 mMol/L (3.4-5.1); Sodium 139 mMol/L (136-145); eGFR 39 See Note
[2024-12-31 09:40] LABS: Path Review Blood Smear Sent to Pathologist; Slide Review Platelets confirmed
[2024-12-31 11:09] LABS: Hemoglobin 6.5 g/dL (13.5-16.0)
[2025-01-05 09:17] LABS: Basophils % (Auto) 2 % (0-2.5); Eosinophils % (Auto) 1 % (0-10); Hematocrit 23.9 % (41.0-53.0); Immature Granulocytes % (Auto) 3 % (0-0); Immature Granulocytes Auto 0.06 Thou/mm3 (0.00-0.00); Lymphocytes # (Auto) 0.5 Thou/mm3 (1.0-4.8); Lymphocytes % (Auto) 26 % (10-50); Mean Corpuscular HGB Conc 34.3 g/dl (31.0-37.0); Mean Corpuscular Hemoglobin 30.1 pg (25.0-35.0); Mean Corpuscular Volume 88 fL (80-100); Monocytes # (Auto) 0.2 Thou/mm3 (0.0-0.8); Monocytes % (Auto) 10 % (0-12); Neutrophils # (Auto) 1.1 Thou/mm3 (1.8-7.7); Neutrophils % (Auto) 58 % (37-80); Nucleated Red Blood Cell % 0 /100 WBC (0); RDW Standard Deviation 48.4 fL (35.1-43.9); Red Blood Count 2.72 Miln/mm3 (4.50-5.90)
[2025-01-05 09:49] LABS: Alanine Aminotransferase 10 U/L (10-49); Albumin, Serum 3.2 gm/dL (3.4-4.8); Albumin/Globulin Ratio 0.9 (1.2-2.2); Alkaline Phosphatase 65 U/L (46-116); Anion Gap 9 (7-16); Aspartate Amino Transferase 10 U/L (0-34); BUN/Creatinine Ratio 28 Ratio (12-20); Bilirubin,Total 1.2 mg/dL (0.3-1.2); Blood Urea Nitrogen 45 mg/dL (9-23); Calcium 8.3 mg/dL (8.3-10.6); Calcium (Corrected) 8.9 mg/dL (8.5-10.1); Carbon Dioxide 23.2 mMol/L (20.0-31.0); Chloride 106 mMol/L (98-107); Creatinine (Component) 1.6 mg/dL (0.6-1.3); Globulin 3.6 gm/dL (2.3-3.5); Glucose 172 mg/dL (74-106); Osmolality,Calculated 291 (275-295); Sodium 138 mMol/L (136-145); Total Protein 6.8 gm/dL (5.7-8.2); eGFR 41 See Note
[2025-01-05 10:19] LABS: White Blood Count 1.9 Thou/mm3 (3.8-10.6)
[2025-01-05 10:20] LABS: Hemoglobin 8.2 g/dL (13.5-16.0); Platelet Count 70 Thou/mm3 (140-440)
[2025-01-05 11:29] LABS: Slide Review Platelets confirmed
[2025-01-12 09:37] LABS: Basophils % (Auto) 2 % (0-2.5); Eosinophils % (Auto) 1 % (0-10); Hematocrit 21.7 % (41.0-53.0); Immature Granulocytes % (Auto) 2 % (0-0); Immature Granulocytes Auto 0.03 Thou/mm3 (0.00-0.00); Lymphocytes # (Auto) 0.9 Thou/mm3 (1.0-4.8); Lymphocytes % (Auto) 47 % (10-50); Mean Corpuscular HGB Conc 34.1 g/dl (31.0-37.0); Mean Corpuscular Hemoglobin 30.3 pg (25.0-35.0); Mean Corpuscular Volume 89 fL (80-100); Monocytes # (Auto) 0.1 Thou/mm3 (0.0-0.8); Monocytes % (Auto) 6 % (0-12); Neutrophils # (Auto) 0.8 Thou/mm3 (1.8-7.7); Neutrophils % (Auto) 43 % (37-80); Nucleated Red Blood Cell % 0 /100 WBC (0); RDW Standard Deviation 49.4 fL (35.1-43.9); Red Blood Count 2.44 Miln/mm3 (4.50-5.90)
[2025-01-12 10:01] LABS: Hemoglobin 7.4 g/dL (13.5-16.0); Platelet Count 74 Thou/mm3 (140-440); White Blood Count 1.9 Thou/mm3 (3.8-10.6)
[2025-01-12 11:09] LABS: Slide Review Platelets confirmed
--- NOTE | 2025-01-20 23:51 | CTCFLWUP_ITS ---
Patient: CHRISTIANE COTTRELL : 1935 Page 4 of 5 FOLLOW UP NOTE DATE OF SERVICE: 01/14/2025 NAME: CHRISTIANE COTTRELL ACCOUNT: [id number] : 1935 AGE: 89 INTERVAL HISTORY: Patient is feeling tired. Patient gets transfusions as needed. Patient does not like going to the hospital for a transfusion and requesting to schedule it in the clinic.patient was started on azacitidine . he had nto had his breakfast in morning. Patient was provided snaks in clinic after noting to have low blood pressure. Patient is sitting in wheel cahir. Per , walks very little. Very upset that he cannot drive his car. 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 Mr. Cottrell was initially diagnosed with anemia in March 2023. Since then he received multiple packed cell transfusions. Was previously on Procrit 30,000 units subcu every other week. 06/19/2023:: Hemoglobin 8.1, MCV 101, WBC 7.7, monocytes 1.0, platelets 268,000. 07/09/2023: Hemoglobin 7.6, MCV 102, WBC 7.1, monocytes 1.2, platelets 288,000. 09/26/2023: Hemoglobin 7.0, MCV 104, WBC 6.0, monocytes 0.9, platelets 241,000. 10/30/2023: Hemoglobin 7.9, MCV 108, WBC 7.7, monocytes 1.1, platelets 253,000. Creatinine 2 point 11/27/2023: Hemoglobin 7.5, MCV 108, WBC 6.5, monocyte count 0.7, platelets 277,000. Creatinine 1.8 01/09/2024: Bone marrow biopsy and aspiration 01/22/2024: Hemoglobin 9.7, WBC 7.4, ANC 4.8, platelets 319,000. 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 Tobacco Use:?Smoked 1/2 PPD from age [age] then Quit ETOH?Use:?Socially Drug?Note:?Denies Social?History?Note:?Lives?wtih? MEDICATIONS: 1. aspirin - 81 mg 1 tab Daily 2. atorvastatin - 40 mg 1 tab Daily 3. carvedilol - 25 mg 1 tab Twice a Day 4. Compazine - 5 mg 1 tab as needed 5. Entresto - 49-51 mg 1 tab Twice a Day 6. furosemide - 40 mg 1 tab Daily 7. levothyroxine - 25 mcg 1 tab Daily 8. magnesium oxide - 400 mg magnesium 1 tab Daily 9. ondansetron - 8 mg 1 tab as needed 10. pantoprazole - 40 mg 1 Daily 11. tamsulosin - 0.4 mg 1 Capsule Daily Medications Last Reconciled by Arianna Marcum MA on 01/14/2025 ALLERGIES: No Known Drug Allergies REVIEW OF SYSTEMS: A complete 14-point review of systems was performed and is negative except as noted in interval history. PHYSICAL EXAMINATION: VITAL SIGNS: Temperature?98.2, B/P?91/54, Oxygen?Saturation?96% PAIN: 0 - No pain ECOG Performance Status: 3 - Symptomatic; limited self-care; spends >50% of time in bed, not bedridden GENERAL APPEARANCE: Appears well, in no apparent distress, appropriately interactive. HEENT: Normocephalic, no temporal wasting, normal conjunctiva, no scleral icterus, normal hearing, lips without lesions, neck normal range of motion. CARDIOVASCULAR: Not assessed. PULMONARY: Normal respiratory effort, no respiratory distress or use of accessory muscles, speaking in full sentences, no tachypnea. EXTREMITIES: Using wheelchair SKIN: Normal skin appearance. NEUROLOGIC: Alert and oriented x4. PSHYCHIATRIC: Appropriate affect, mood normal, behavior normal, intact thought and speech. LABORATORY DATA: I have personally reviewed and interpreted each of the patient?s relevant lab tests, abnormal findings are below: Date 12/31/24 01/05/25 01/12/25 ??WHITE?BLOOD?COUNT?(Thou/mm3) ? 1.9?L 1.9?L ??RED?BLOOD?COUNT?(Miln/mm3) ? 2.72?L 2.44?L ??HEMOGLOBIN?(gm/dl) ? 8.2?L 7.4?L ??HEMATOCRIT?(%) ? 23.9?L 21.7?LL ??PLATELET?COUNT?(Thou/mm3) ? 70?L 74?L ??NEUTROPHILS?%,?AUTO?(%) ? 58 43 ??LYMPH?%,?AUTO?(%) ? 26 47 ??NEUTROPHILS,?AUTO?(Thou/mm3) ? 1.1?L 0.8?L ??GLUCOSE,RANDOM?(mg/dL) 109?H 172?H ? ??BLOOD?UREA?NITROGEN?(mg/dL) 52?H 45?H ? ??CREATININE?(mg/dL) 1.70?H 1.60?H ? ??SODIUM?(mmol/L) 139 138 ? ??POTASSIUM?(mmol/L) 4.4 4.0 ? ??CHLORIDE?(mmol/L) 108?H 106 ? ??CrCl?(CandG)?(ml/min) 32.68 34.06 ? ??AST/SGOT?(Unit/L) 13 10 ? ??ALT/SGPT?(Unit/L) 18 10 ? ??ALKALINE?PHOSPHATASE?(Unit/L) 69 65 ? ??BILIRUBIN,?TOTAL?(mg/dL) 0.8 1.2 ? ??PROTEIN?TOTAL?(gm/dl) 7.0 6.8 ? ??ALBUMIN,?SERUM?(gm/dl) 3.4 3.2?L ? ??GLOBULIN?(gm/dl) 3.6?H 3.6?H ? ??ALBUMIN/GLOBULIN?RATIO 0.9?L 0.9?L ? ??CALCIUM,?SERUM?(mg/dL) 8.5 8.3 ? ??CALCIUM?SERUM?(CORRECTED)?(mg/dL) 9.0 8.9 ? ASSESSMENT/PLAN: 1. 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 Patient was previously following up with Dr. Kirk, oncologist in [place], would like to start following up with us for MDS treatment, patient lives here in [place]. Previously, patient was receiving Procrit 40,000 units subcu every week due to anemia according to patient by nephrology, patient and were advised that due to MDS diagnosis, Procrit was not recommended, stopped 10/21/2024. Continue with standing order for blood transfusion: 1 unit of PRBCs for hemoglobin less than 8, 2 units of PRBCs for hemoglobin less than 7 every week. Port for transfusions Was started on on Vidaza and doing well .it is to reduce dependence on transfusions 2. hypotenstion Improved wth oral hydration. Continue following up with medical sales consultant and PCP for other medical conditions CBC weekly Standing order for blood transfusion CBC and CMP prior to follow-up ORDERS: Order # Description [id number] CBC + Comprehensive Metabolic Panel [id number] Lab Appointment [id number] CBC + Comprehensive Metabolic Panel [id number] Lab Appointment [id number] CBC + Comprehensive Metabolic Panel [id number] Lab Appointment [id number] CBC + Comprehensive Metabolic Panel [id number] Lab Appointment RETURN TO CLINIC: BILLING AND COMPLIANCE: I reviewed external records from providers outside my specialty as summarized above. I spent a total of 50 minutes on this patient?s care on the day of their visit excluding time spent related to any billed procedures. This time includes time spent with the patient as well as time spent documenting in the medical record, reviewing patients records and tests, obtaining history, placing orders, communicating with other healthcare professionals, counseling the patient, family or caregiver, and/or care coordination for the diagnoses above. Electronically Signed by: {Object.Sanct_ID*[email or web address]@M}, {Object.Sanct_ID*PnP.Suffix@U} D: {Object.Sanct_Date} T: {Object.Sanct_Time} CC: [place]?Ridge,? PCP: Ray Gillette Referring: Ray Gillette This document was completed utilizing speech recognition software. Grammatical errors, random word insertions, pronoun errors, and incomplete sentences are an occasional consequence of this system due to software limitations, ambient noise, and hardware issues. Any formal questions or concerns about the content, text or information contained within the body of this dictation should be directly addressed to the provider for clarification.
[2025-01-22 09:17] LABS: Basophils % (Auto) 1 % (0-2.5); Eosinophils % (Auto) 1 % (0-10); Immature Granulocytes % (Auto) 9 % (0-0); Immature Granulocytes Auto 0.11 Thou/mm3 (0.00-0.00); Lymphocytes # (Auto) 0.6 Thou/mm3 (1.0-4.8); Lymphocytes % (Auto) 47 % (10-50); Mean Corpuscular HGB Conc 34.9 g/dl (31.0-37.0); Mean Corpuscular Hemoglobin 30.7 pg (25.0-35.0); Mean Corpuscular Volume 88 fL (80-100); Monocytes # (Auto) 0.1 Thou/mm3 (0.0-0.8); Monocytes % (Auto) 9 % (0-12); Neutrophils # (Auto) 0.4 Thou/mm3 (1.8-7.7); Neutrophils % (Auto) 33 % (37-80); Nucleated Red Blood Cell % 0 /100 WBC (0); Red Blood Count 2.15 Miln/mm3 (4.50-5.90)
[2025-01-22 09:45] LABS: Alanine Aminotransferase < 7 U/L (10-49); Albumin/Globulin Ratio 0.9 (1.2-2.2); Alkaline Phosphatase 62 U/L (46-116); Anion Gap 9 (7-16); Aspartate Amino Transferase < 10 U/L (0-34); BUN/Creatinine Ratio 34 Ratio (12-20); Bilirubin,Total 0.4 mg/dL (0.3-1.2); Blood Urea Nitrogen 55 mg/dL (9-23); Calcium 8.2 mg/dL (8.3-10.6); Carbon Dioxide 23.4 mMol/L (20.0-31.0); Chloride 107 mMol/L (98-107); Creatinine (Component) 1.6 mg/dL (0.6-1.3); Globulin 3.4 gm/dL (2.3-3.5); Glucose 123 mg/dL (74-106); Osmolality,Calculated 293 (275-295); Potassium 4.2 mMol/L (3.4-5.1); Sodium 139 mMol/L (136-145); Total Protein 6.4 gm/dL (5.7-8.2); eGFR 41 See Note
[2025-01-22 09:46] LABS: Hematocrit 18.9 % (41.0-53.0); Hemoglobin 6.6 g/dL (13.5-16.0); Platelet Count 38 Thou/mm3 (140-440); White Blood Count 1.2 Thou/mm3 (3.8-10.6)
[2025-01-22 11:42] LABS: Slide Review Platelets confirmed
== END 2025-01-24 23:59 | disposition home or self-care (01) ==
LOC: SCTC 08:19
PROVIDERS: PCP Family Medicine; Referring Provider Family Medicine; Visit Provider Internal Medicine Hematology & Oncology
DX: Z51.11 Encounter for antineoplastic chemotherapy (principal); D46.9 Myelodysplastic syndrome, unspecified; I95.9 Hypotension, unspecified
CPT/HCPCS: 36415; 36430; 36591; 80053; 85025; 86850; 86900; 86901; 86923; 96401; 99212; A4216; J1642; J7040; J9025; P9016; G0463

== ENCOUNTER 2025-02-09 09:19 | Outpatient (RCR) | payer MEDICARE, BC, SELFPAY ==
[2025-02-02 08:28] LABS: Basophils % (Auto) 2 % (0-2.5); Eosinophils % (Auto) 1 % (0-10); Hematocrit 22.4 % (41.0-53.0); Immature Granulocytes % (Auto) 4 % (0-0); Immature Granulocytes Auto 0.05 Thou/mm3 (0.00-0.00); Lymphocytes # (Auto) 0.6 Thou/mm3 (1.0-4.8); Lymphocytes % (Auto) 45 % (10-50); Mean Corpuscular Hemoglobin 29.7 pg (25.0-35.0); Mean Corpuscular Volume 90 fL (80-100); Monocytes # (Auto) 0.1 Thou/mm3 (0.0-0.8); Monocytes % (Auto) 6 % (0-12); Neutrophils # (Auto) 0.6 Thou/mm3 (1.8-7.7); Neutrophils % (Auto) 43 % (37-80); Nucleated Red Blood Cell % 0 /100 WBC (0); Red Blood Count 2.49 Miln/mm3 (4.50-5.90)
[2025-02-02 08:38] LABS: Alanine Aminotransferase < 7 U/L (10-49); Albumin, Serum 3.2 gm/dL (3.4-4.8); Albumin/Globulin Ratio 0.9 (1.2-2.2); Alkaline Phosphatase 64 U/L (46-116); Anion Gap 9 (7-16); BUN/Creatinine Ratio 29 Ratio (12-20); Bilirubin,Total 0.7 mg/dL (0.3-1.2); Blood Urea Nitrogen 44 mg/dL (9-23); Calcium (Corrected) 9.6 mg/dL (8.5-10.1); Carbon Dioxide 23.1 mMol/L (20.0-31.0); Chloride 106 mMol/L (98-107); Creatinine (Component) 1.5 mg/dL (0.6-1.3); Globulin 3.7 gm/dL (2.3-3.5); Glucose 118 mg/dL (74-106); Osmolality,Calculated 287 (275-295); Potassium 4.2 mMol/L (3.4-5.1); Sodium 138 mMol/L (136-145); Total Protein 6.9 gm/dL (5.7-8.2); eGFR 45 See Note
[2025-02-02 08:40] LABS: White Blood Count 1.4 Thou/mm3 (3.8-10.6)
[2025-02-02 08:41] LABS: Hemoglobin 7.4 g/dL (13.5-16.0); Platelet Count 49 Thou/mm3 (140-440)
[2025-02-02 11:53] LABS: Slide Review Platelets confirmed
[2025-02-09 10:31] LABS: Basophils % (Auto) 2 % (0-2.5); Eosinophils % (Auto) 1 % (0-10); Hematocrit 22.2 % (41.0-53.0); Immature Granulocytes % (Auto) 1 % (0-0); Immature Granulocytes Auto 0.01 Thou/mm3 (0.00-0.00); Lymphocytes # (Auto) 0.7 Thou/mm3 (1.0-4.8); Lymphocytes % (Auto) 59 % (10-50); Mean Corpuscular HGB Conc 34.2 g/dl (31.0-37.0); Mean Corpuscular Hemoglobin 29.6 pg (25.0-35.0); Mean Corpuscular Volume 86 fL (80-100); Monocytes # (Auto) 0.2 Thou/mm3 (0.0-0.8); Monocytes % (Auto) 14 % (0-12); Neutrophils # (Auto) 0.3 Thou/mm3 (1.8-7.7); Neutrophils % (Auto) 24 % (37-80); Nucleated Red Blood Cell % 0 /100 WBC (0); RDW Standard Deviation 48.4 fL (35.1-43.9); Red Blood Count 2.57 Miln/mm3 (4.50-5.90)
[2025-02-09 10:42] LABS: White Blood Count 1.3 Thou/mm3 (3.8-10.6)
[2025-02-09 10:43] LABS: Hemoglobin 7.6 g/dL (13.5-16.0); Platelet Count 41 Thou/mm3 (140-440)
[2025-02-09 11:58] LABS: Slide Review Platelets confirmed
== END 2025-02-23 23:59 | disposition home or self-care (01) ==
LOC: SCTC 09:19
PROVIDERS: PCP Family Medicine; Referring Provider Family Medicine; Visit Provider Internal Medicine Hematology & Oncology
DX: Z51.11 Encounter for antineoplastic chemotherapy (principal); D46.9 Myelodysplastic syndrome, unspecified; D63.8 Anemia in other chronic diseases classified elsewhere; I95.9 Hypotension, unspecified
CPT/HCPCS: 36415; 36430; 80053; 85025; 86850; 86900; 86901; 86923; 96401; A4216; J1642; J7040; J9025; P9016

== ENCOUNTER 2025-02-15 20:05 | Inpatient (IN) | payer MEDICARE, BC, SELFPAY ==
[2025-02-15] VITALS (34 sets, daily range): BP systolic 89–124; BP diastolic 45–67; PULSE 70–88; RESP 12–31; TEMP 36.4–39.4; O2SAT 92–100; BMI 23.0
--- NOTE | 2025-02-15 20:17 | PD.EDSOB ---
ED SOB =RME/HPI General Chief Complaint: Shortness of Breath/Dyspnea Stated Complaint: HYPOTENSION Time Seen by Provider: 02/15/25 20:11 Arrival date/time: 02/15/25 20:05 RME / HPI RME / HPI Narrative: This section includes all my notes and documentations, including HPI, PE, and ED course. Thomas Carlos MD HPI: 89yo male with a history of CHF, CAD s/p CABG, pacemaker, hypertension, GERD, BPH, CKD stage IV, hypothyroidism, chronic anemia requiring multiple blood transfusions, myelodysplastic neoplasm BIBA from [facility] ([place]) presents to the ED with cough, intermittent fever, and shortness of breath for the last few days. Patient's shortness of breath significantly worsened today. EMS notes the patient was saturating at 89% room air and was hypotensive at 86/48 on scene. No other complaints reported. ROS: All negative except as documented in HPI. Physical Exam: General: Alert and oriented. Moderate respiratory distress. Fever noted. Hypotension noted. Eyes: Conjunctivae and lids clear. ENT: No nasal congestion. Neck: Supple. No carotid bruit. No JVD. Heart: RRR. Lungs: Moderate respiratory distress. Severely decreased air movement with rales bilaterally. Abdomen: Soft and nontender. Normal bowel sounds. No distension. No rebound or guarding. Back: No CVA tenderness. Skin: Warm and dry. Legs: Moderate pitting edema noted in the lower legs. Neuro: Alert and oriented X 3. I reviewed EMS notes. I reviewed all diagnostic test results. My interpretation of the EKG is paced rhythm. My interpretation of the chest x-ray is increased vascular congestion and infiltrates. Blood tests remarkable for WBC 0.7, pancytopenia, ESR 45, BNP >3280, Creatinine 1.9, Magnesium 1.2, CRP 9.4, Procalcitonin 1.98, D-Dimer 2270. Influenza A positive. COVID/RSV negative. At this point, diagnoses include Acute respiratory failure with hypoxia, Sepsis, Influenza A, Pulmonary edema, Pneumonia, Severe anemia, Neutropenia with fever, Hypomagnesemia, Pancytopenia. Treatment here included BiPAP, Tylenol 1 g IV,, Toradol 7.5 mg IV topical nitroglycerin, Morphine 2 mg IV, Lasix 80 mg IV, Duoneb, Solumedrol 125 mg IV, Levophed drip, Rocephin 1 g IV, Azithromycin 500 mg IV, and oral Tamiflu 75 mg. No significant improvement noted. I discussed the case with our ICU. About the presentation and exam and diagnostics and treatments here. And need of further care in the hospital. Will accept the patient. Thomas Carlos MD Related Data Home Medications ?Medication ?Instructions ?Recorded ?Confirmed aspirin 81 mg tablet 81 mg PO DAILY 08/16/23 11/07/24 Held on 11/07/24. Instructions: Resume on 11/08/24. finasteride 5 mg tablet 5 mg PO DAILY 08/16/23 11/07/24 fluticasone propionate 50 1 spray intranasal BID 08/16/23 11/07/24 mcg/actuation nasal spray,suspension levothyroxine 25 mcg tablet 25 mcg PO DAILY 08/16/23 11/07/24 pantoprazole 40 mg tablet,delayed 40 mg PO DAILY 08/16/23 11/07/24 release tamsulosin 0.4 mg capsule 0.4 mg PO DAILY 08/16/23 11/07/24 hydroxyzine HCl 50 mg tablet 50 mg PO QID PRN Anxiety 07/31/24 11/07/24 Previous Rx's ?Medication ?Instructions ?Recorded acetaminophen 325 mg tablet 650 mg (2 x 325 mg) PO BID PRN 07/31/24 (Tylenol) pain #14 tabs carvedilol 3.125 mg tablet (Coreg) 3.125 mg PO BID #60 tabs 09/12/24 sacubitril 24 mg-valsartan 26 mg 0.5 tab PO BID #60 tabs 09/19/24 tablet (Entresto) Allergies Allergy/AdvReac Type Severity Reaction Status Date / Time No Known Allergies Allergy Verified 11/07/24 08:18 Review of Systems Review of Systems Systems Reviewed: All systems reviewed, normal except as documented ED Exam Narrative Physical exam: As noted in HPI. Course Course Course Narrative: CXR is ordered for determining the etiology of shortness of breath. 2012: Sepsis alert initiated. Orders made at this time are congruent with ED Adult Sepsis Order List. Re-evaluation is to be completed. 30mL/kg IVF not ordered due to the patient's history of CHF. BiPAP ordered. Levophed ordered due to the patient being hypotensive. Quality Measures Possible source: pulmonary Blood cultures ordered: yes Antibiotic ordered: Yes Pertinent labs: 02/15/25 02/15/25 20:20 20:37 Lactic Acid 1.8 mMol/L (0.4-2.0) Procalcitonin 1.98 H ng/ml (0.0-0.49) sepsis Orders Category Date Time Status Bedside Influenza A&B Antigen Test NOW Care 02/15/25 20:17 Completed COVID-19 Screening Questionnaire NOW Care 02/15/25 21:15 Active Decision to Admit X1 Care 02/15/25 21:14 Completed EKG (ED ONLY) *Do not use* NOW Care 02/15/25 20:21 Completed Douglass [Urinary Catheter] QS Care 02/15/25 21:07 Active Douglass to Rule Routine Care 02/15/25 20:40 Ordered Saline [Insert IV] NOW Care 02/15/25 20:17 Active Referral Respiratory Therapy Stat Cons 02/15/25 20:18 Active EKG (ED Only) Stat Exams 02/15/25 20:21 Ordered XR chest 1V portable Stat Exams 02/15/25 20:21 Completed ABG [Arterial Blood Gas] Stat Lab 02/15/25 21:03 Completed BNP [B-Type Natriuretic Peptide] Stat Lab 02/15/25 20:20 Completed Beta Hydroxybutyrate Stat Lab 02/15/25 20:37 Completed Bilirubin,Direct Stat Lab 02/15/25 20:37 Completed Blood Culture (Lab) Stat Lab 02/15/25 20:37 Received CBC Stat Lab 02/15/25 20:37 Completed CMP [Comprehensive Metabolic Panel] Stat Lab 02/15/25 20:37 Completed COVID-19 Antigen (In-House) Stat Lab 02/15/25 20:32 Completed CRP [C-Reactive Protein] Stat Lab 02/15/25 20:37 Completed D-Dimer Stat Lab 02/15/25 20:37 Completed ESR [Sed Rate (ESR)] Stat Lab 02/15/25 20:37 Completed Free T4 (Free Thyroxine) Stat Lab 02/15/25 20:37 Completed Lactate (Lactic Acid) Stat Lab 02/15/25 20:20 Completed Magnesium Stat Lab 02/15/25 20:37 Completed PT [Prothrombin Time with INR] Stat Lab 02/15/25 20:20 Completed PTT [Partial Thromboplastin Time] Stat Lab 02/15/25 20:20 Completed Procalcitonin Stat Lab 02/15/25 20:37 Completed RSV [Respiratory Syncytial Virus Ag] Stat Lab 02/15/25 20:22 Completed TSH [Thyroid Stimulating Hormone] Stat Lab 02/15/25 20:37 Completed Troponin I Stat Lab 02/15/25 20:37 Completed UA, C/S IF [Urinalysis, C/S if Indicated] Stat Lab 02/15/25 21:32 Completed Acetaminophen Ivpb [Ofirmev Inj] Med 02/15/25 20:35 Discontinued 1,000 mg in 100 ml IV X1 Albuterol/Ipratr Rt Chio [Duoneb Rt Chio] Med 02/15/25 21:15 Discontinued 3 ml INH X1 ONE Azithromycin Inj [Zithromax Inj] 500 mg Med 02/15/25 21:08 Discontinued Sodium Chloride 0.9% 250 ml [Ns] 250 ml IV X1 Furosemide Inj [Lasix Inj] Med 02/15/25 20:18 Discontinued 40 mg IVP X1 ONE Furosemide Inj [Lasix Inj] Med 02/15/25 20:44 Discontinued 40 mg IVP X1 ONE Ketorolac Inj [Toradol Inj] Med 02/15/25 20:35 Discontinued 7.5 mg IVP X1 ONE Magnesium Sulfate 4 GM Ivpb [Magnesium Sulfate Ivpb] Med 02/15/25 21:29 Active 4 gm in 50 ml IV X1 Magnesium Sulfate 4 GM Ivpb [Magnesium Sulfate Ivpb] Med 02/15/25 21:34 Active 4 gm in 50 ml IV X1 MethylPREDNISolone.* [SoluMEDROL Inj] Med 02/15/25 21:15 Discontinued 125 mg IVP X1 ONE Morphine Inj Med 02/15/25 20:18 Discontinued 2 mg IVP X1 ONE Nitroglycerin Oint 2% [Nitro-paste Oint 2%] Med 02/15/25 20:18 Discontinued 1 inch TOP X1 ONE Nitroglycerin Oint 2% [Nitro-paste Oint 2%] Med 02/15/25 20:44 Discontinued 1 inch TOP X1 ONE Norepinephrine/NS 16mg/250ml [Levophed in NS 16mg/250ml Med 02/15/25 20:19 Active ] 16 mg in 250 ml IV 0.05 mcg/kg/min Oseltamivir [Tamiflu] Med 02/15/25 21:45 Pending 75 mg PO Q12H Oseltamivir [Tamiflu] Med 02/15/25 21:08 Discontinued 75 mg PO X1 ONE Piper/Tazo Inj [Zosyn Inj] 4.5 gm Med 02/15/25 21:36 Hold Sodium Chloride 0.9% (Pop) [NS 0.9% mini bag] 100 ml IV Q6HR Vancomycin Inj 1,500 mg Med 02/15/25 21:45 Pending Sodium Chloride 0.9% 500 ml [Ns] 500 ml IV Q12H Vancomycin Inj 1,500 mg Med 02/15/25 22:00 Active Sodium Chloride 0.9% 500 ml [Ns] 500 ml IV X1 cefTRIAXone/D5w 1gm IV premix [Rocephin/D5w 1gm IV Med 02/15/25 20:19 Discontinued premix] 1 gm in 50 ml IV X1 BiPAP / CPAP NOW RT 02/15/25 20:17 Active Vital Signs Vital signs: Vital Signs Temperature 102.9 F H 02/15/25 20:17 Pulse Rate 85 02/15/25 20:17 Respiratory Rate 22 H 02/15/25 20:17 Blood Pressure 89/45 L 02/15/25 20:17 Pulse Oximetry (%) 92 L 02/15/25 20:17 Oxygen Delivery Method Room Air 02/15/25 20:17 Shortness of Breath / Dyspnea MDM Narrative MDM Narrative:: 89yo male with a history of CHF, CAD s/p CABG, pacemaker, hypertension, GERD, BPH, CKD stage IV, hypothyroidism, chronic anemia requiring multiple blood transfusions, myelodysplastic neoplasm BIBA from [facility] ([place] presents to the ED for complaints of persistent cough, intermittent fever, and shortness of breath for the last few days. Patient's shortness of breath significantly worsened today, so he came in for evaluation. EMS notes the patient was saturating at 89% room air and was hypotensive at 86/48 on scene. No nausea, vomiting, diarrhea, UTI symptoms or any other associated symptoms. No other complaints reported. Patient data External records reviewed:: [facility] previous records (Per chart review, patient was seen here on 10/15/24 for severe anemia.) and EMS form Clinical information provided by:: patient and EMS Social determinants that could affect healthcare access:: none Patient has the following chronic illnesses:: CHF, CAD s/p CABG, pacemaker, hypertension, GERD, BPH, CKD stage IV, hypothyroidism, chronic anemia requiring multiple blood transfusions, myelodysplastic neoplasm How is presenting disease/condition affected by chronic disease/condition?: exacerbated by Evaluation data The following diagnostics were reviewed and interpreted by me:: lab results, radiology exam(s) and EKG tracing(s) (My interpretation of the EKG: Paced rhythm (86 bpm). Thomas Carlos MD) Lab and/or radiology exams considered but not ordered:: none Interpretation Summary: I reviewed all diagnostic test results. My interpretation of the EKG is paced rhythm. My interpretation of the chest x-ray is increased vascular congestion and infiltrates. Blood tests remarkable for WBC 0.7, pancytopenia, ESR 45, BNP >3280, Creatinine 1.9, Magnesium 1.2, CRP 9.4, Procalcitonin 1.98, D-Dimer 2270. Influenza A positive. COVID/RSV negative. Medications / Prescriptions Medications or Prescriptions considered but not ordered:: none Medication administrations:: Medication Administration History Norepinephrine Bitartrate (Levophed In Ns 16mg/250ml) 16 mg in 250 mls @ 3.126 mls/hr IV .Q24H PRN; Protocol PRN Reason: PER PROTOCOL Stop: 03/17/25 20:18 Last Titration: 02/15/25 21:45 Dose: 0.11 mcg/kg/min, 6.876 mls/hr Documented By: Titration: 02/15/25 21:15 Dose: 0.11 mcg/kg/min, 6.876 mls/hr Documented By: Titration: 02/15/25 21:06 Dose: 0.09 mcg/kg/min, 5.626 mls/hr Documented By: Titration: 02/15/25 21:01 Dose: 0.09 mcg/kg/min, 5.626 mls/hr Documented By: Titration: 02/15/25 20:56 Dose: 0.09 mcg/kg/min, 5.626 mls/hr Documented By: Titration: 02/15/25 20:51 Dose: 0.07 mcg/kg/min, 4.376 mls/hr Documented By: Titration: 02/15/25 20:46 Dose: 0.07 mcg/kg/min, 4.376 mls/hr Documented By: Admin: 02/15/25 20:41 Dose: 0.05 mcg/kg/min, 3.126 mls/hr Documented By: JT Magnesium Sulfate (Magnesium Sulfate Ivpb) 4 gm in 50 mls @ 12.5 mls/hr IV X1 ONE Stop: 02/16/25 01:28 Magnesium Sulfate (Magnesium Sulfate Ivpb) 4 gm in 50 mls @ 12.5 mls/hr IV X1 ONE Stop: 02/16/25 01:33 Last Admin: 02/15/25 21:51 Dose: Not Given Documented By: JT Non-Admin Reason: Duplicate Medication on eMAR Vancomycin HCl 1,500 mg/ (Sodium Chloride) 500 mls @ 150 mls/hr IV Q12H PRASANTH Stop: 02/22/25 21:44 Piperacillin Sod/Tazobactam (Sod 4.5 gm/ Sodium Chloride) 100 mls @ 200 mls/hr IV Q6HR PRASANTH Stop: 02/22/25 21:35 Vancomycin HCl 1,500 mg/ (Sodium Chloride) 500 mls @ 150 mls/hr IV X1 ONE Stop: 02/16/25 01:19 Oseltamivir Phosphate (Oseltamivir 75 Mg Capsule) 75 mg PO Q12H PRASANTH Stop: 02/22/25 21:44 Last Admin: 02/15/25 21:51 Dose: Not Given Documented By: JT Non-Admin Reason: Cancelled by Provider Discontinued Medications Albuterol/Ipratropium (Albuterol/Ipratropium (Duoneb) Rt Chio 3 Ml Nebu) 3 ml INH X1 ONE Stop: 02/15/25 21:16 Last Admin: 02/15/25 21:24 Dose: 3 ml Documented By: CHASITY Furosemide (Furosemide Inj 10 Mg/Ml 4ml Vial) 40 mg IVP X1 ONE Stop: 02/15/25 20:19 Last Admin: 02/15/25 20:42 Dose: 40 mg Documented By: JT Furosemide (Furosemide Inj 10 Mg/Ml 4ml Vial) 40 mg IVP X1 ONE Stop: 02/15/25 20:45 Last Admin: 02/15/25 21:00 Dose: 40 mg Documented By: JT Ceftriaxone Sodium/Dextrose (Rocephin/D5w 1gm Iv Premix) 1 gm in 50 mls @ 100 mls/hr IV X1 ONE Stop: 02/15/25 20:48 Last Infusion: 02/15/25 21:31 Dose: Infused Documented By: Admin: 02/15/25 20:49 Dose: 100 mls/hr Documented By: JT Acetaminophen (Ofirmev Inj) 1,000 mg in 100 mls @ 250 mls/hr IV X1 ONE Stop: 02/15/25 20:58 Last Infusion: 02/15/25 21:28 Dose: Infused Documented By: Admin: 02/15/25 21:01 Dose: 250 mls/hr Documented By: JT Azithromycin 500 mg/ Sodium (Chloride) 250 mls @ 250 mls/hr IV X1 ONE Stop: 02/15/25 22:07 Last Admin: 02/15/25 21:39 Dose: 250 mls/hr Documented By: JT Ketorolac Tromethamine (Ketorolac Inj 30 Mg/Ml Vial) 7.5 mg IVP X1 ONE Stop: 02/15/25 20:36 Last Admin: 02/15/25 21:06 Dose: Not Given Documented By: JT Non-Admin Reason: Patient Refused Methylprednisolone Sodium Succinate (Methylprednisolone Sod Succ 62.5 Mg/Ml 2ml Vial) 125 mg IVP X1 ONE Stop: 02/15/25 21:16 Last Admin: 02/15/25 21:47 Dose: 125 mg Documented By: JT Morphine Sulfate (Morphine Sulf Inj 10 Mg/Ml Vial) 2 mg IVP X1 ONE Stop: 02/15/25 20:19 Last Admin: 02/15/25 21:06 Dose: Not Given Documented By: JT Non-Admin Reason: Patient Refused Nitroglycerin (Nitroglycerin Oint 2% 1 Inch Packet) 1 inch TOP X1 ONE Stop: 02/15/25 20:19 Last Admin: 02/15/25 21:14 Dose: 1 inch Documented By: JT Nitroglycerin (Nitroglycerin Oint 2% 1 Inch Packet) 1 inch TOP X1 ONE Stop: 02/15/25 20:45 Last Admin: 02/15/25 21:26 Dose: 1 inch Documented By: JT Oseltamivir Phosphate (Oseltamivir 75 Mg Capsule) 75 mg PO X1 ONE Stop: 02/15/25 21:09 Last Admin: 02/15/25 21:14 Dose: 75 mg Documented By: JT Treatment here from [facility] included BiPAP, Tylenol 1 g IV,, Toradol 7.5 mg IV topical nitroglycerin, Morphine 2 mg IV, Lasix 80 mg IV, Duoneb, Solumedrol 125 mg IV, Levophed drip, Rocephin 1 g IV, Azithromycin 500 mg IV, and oral Tamiflu 75 mg. Consultations Consultation(s) initiated? (list below): Yes Consultation #1 (Physician, Specialty, Details): I discussed the case with our ICU. About the presentation and exam and diagnostics and treatments here. And need of further care in the hospital. Will accept the patient. Diagnosis Shortness of Breath Differential Diagnosis: acute exacerbation of chronic obstructive airways disease, congestive heart failure, community acquired pneumonia and pulmonary embolism Most likely diagnosis given after review of the tests above:: Acute respiratory failure with hypoxia, Sepsis, Influenza A, Pulmonary edema, Pneumonia, Severe anemia, Neutropenia with fever, Hypomagnesemia, and Pancytopenia. Admission Indicated Admission indicated?: indicated Explain why admission is indicated or not indicated:: Acute respiratory failure with hypoxia, Sepsis, Influenza A, Pulmonary edema, Pneumonia, Severe anemia, Neutropenia with fever, Hypomagnesemia, and Pancytopenia. Admission Request Was there a request for admission?: Yes Admission Attestation Admission request attestation: Discussed case with ICU service regarding admission. Discussed patients ED course, exam findings, labs, and radiology results. Agrees to accept the patient for admission. Disposition Plan Disposition Plan: Admit Critical Care Time Critical Care Time Critical Care Time: Yes Total Critical Care Time (min.): 45 Attestation: Critical Care Time: Due to a high probability of clinically significant, life threatening deterioration, the patient required my highest level of preparedness to intervene emergently and I personally spent this critical care time directly and personally managing the patient. This critical care time included obtaining a history; examining the patient; ordering and review of studies; arranging urgent treatment with development of a management plan; evaluation of patient's response to treatment; frequent reassessment; and discussions with family and other providers. It was exclusive of separately billable procedures and treating other patients and teaching time. Thomas Carlos MD Discharge Plan Plan Patient Disposition: Admit Acute Care w/in Hospital Prescriptions/Referrals Prescriptions/Med Rec: No Action hydroxyzine HCl 50 mg tablet 50 mg PO QID PRN (Reason: Anxiety) levothyroxine 25 mcg tablet 25 mcg PO DAILY Patient Comments: TAKE 1 TABLET BY MOUTH EVERY DAY pantoprazole 40 mg tablet,delayed release (DR/EC) 40 mg PO DAILY Patient Comments: TAKE 1 TABLET BY MOUTH EVERY DAY 30 MINUTES BEFORE BREAKFAST finasteride 5 mg tablet 5 mg PO DAILY tamsulosin 0.4 mg capsule 0.4 mg PO DAILY aspirin 81 mg Tablet 81 mg PO DAILY fluticasone propionate 50 mcg/actuation [employer],Suspension 1 spray INTRANASAL BID acetaminophen [Tylenol] 325 mg tablet 650 mg PO BID PRN (Reason: pain) Qty: 14 0RF Entresto 24-26 mg tablet 0.5 tab PO BID Qty: 60 2RF carvedilol [Coreg] 3.125 mg tablet 3.125 mg PO BID Qty: 60 0RF Rx Instructions: must administer with a meal/food Referrals: No Primary/Family,Physician [Referring Provider] - In 1 week Problem List Clinical Impression: Acute respiratory failure with hypoxia, Sepsis, Influenza A, Pulmonary edema, Pneumonia, Severe anemia, Neutropenia with fever, Hypomagnesemia, Pancytopenia Patient/Caregiver Discharge Instructions Print Language: Bahamian Stand Alone Forms: [employer] Info., Patient Portal Info Letter
--- NOTE | 2025-02-15 20:21 | XR_ITS ---
Examination: AP chest single view Technique one AP portable upright chest single view Date and time: March 17, 2025 at 2027 hours Comparison September 19, 2024 INDICATIONS: Shortness of breath chest pain today FINDINGS: Moderate CHF. Moderate enlargement left ventricle. Prominent vascular congestion including central vascular engorgement Perihilar edema Consider superimposed pneumonia right base Cardiac leads satisfactory position Right internal jugular Port-A-Cath tip satisfactory position IMPRESSION: Moderate CHF Consider superimposed pneumonia right lung
[2025-02-15] MEDS: Norepinephrine/NS 16mg/250ml 16 MG/250 ML BAG 3.126 MG IV (20:41)
[2025-02-15] MEDS: FUROSEMIDE INJ 10 MG/ML 4ML VIAL 40 MG IVP ×2 (20:42→21:00)
[2025-02-15 20:46] LABS: Lactate (Lactic Acid) 1.8 mMol/L (0.4-2.0)
[2025-02-15] MEDS: cefTRIAXone/D5w 1gm IV premix 1 GM/50 ML BAG IV (20:49)
[2025-02-15 20:53] LABS: Basophils # (Auto) 0.0 Thou/mm3 (0.0-0.2); Basophils % (Auto) 0 % (0-2.5); Eosinophils # (Auto) 0.0 Thou/mm3 (0.0-0.5); Eosinophils % (Auto) 0 % (0-10); Hematocrit 20.3 % (41.0-53.0); Immature Granulocytes Auto 0.04 Thou/mm3 (0.00-0.00); Lymphocytes # (Auto) 0.4 Thou/mm3 (1.0-4.8); Lymphocytes % (Auto) 52 % (10-50); Mean Corpuscular HGB Conc 35.0 g/dl (31.0-37.0); Mean Corpuscular Hemoglobin 29.2 pg (25.0-35.0); Mean Corpuscular Volume 84 fL (80-100); Monocytes # (Auto) 0.1 Thou/mm3 (0.0-0.8); Monocytes % (Auto) 7 % (0-12); Neutrophils # (Auto) 0.3 Thou/mm3 (1.8-7.7); Neutrophils % (Auto) 36 % (37-80); Nucleated Red Blood Cell # 0.00 Thou/mm3 (0.00-0.00); Nucleated Red Blood Cell % 0 /100 WBC (0); RDW Standard Deviation 45.4 fL (35.1-43.9); Red Blood Count 2.43 Miln/mm3 (4.50-5.90)
[2025-02-15 21:01] LABS: COVID-19 Antigen (In-House) Negative (Negative)
[2025-02-15] MEDS: ACETAMINOPHEN IVPB 1,000 MG/100 ML VIAL 250 MG IV (21:01)
[2025-02-15 21:03] LABS: Beta Hydroxybutyrate 0.1 mmol/L (<0.6)
[2025-02-15 21:05] LABS: Sed Rate (ESR) 45 mm/hr (0-20)
[2025-02-15 21:07] LABS: Base Excess -1 (-3-3); HCO3 23 mEq/L (20-26); Inspired Oxygen, FIO2 21 %; O2 Saturation 95 % (91-98); PCO2 33 mmHg (32.0-48.0); PO2 66 mmHg (83-108); pH, Arterial 7.45 (7.35-7.45)
[2025-02-15 21:08] LABS: INR 1.4 (0.9-1.3); Partial Thromboplastin Time 28.7 Seconds (22.0-36.0); Prothrombin Time 14.5 Seconds (9.0-12.2)
[2025-02-15 21:08] LABS: Allen Test Performed/OK; Puncture Site Right Radial
[2025-02-15 21:09] LABS: Hemoglobin 7.1 g/dL (13.5-16.0)
[2025-02-15 21:10] LABS: Respiratory Syncytial Virus Ag Negative (Negative)
[2025-02-15 21:11] LABS: White Blood Count 0.7 Thou/mm3 (3.8-10.6)
[2025-02-15 21:12] LABS: Platelet Count 20 Thou/mm3 (140-440)
[2025-02-15 21:14] LABS: B-Type Natriuretic Peptide > 3280 pg/mL (0-100)
[2025-02-15] MEDS: NITROGLYCERIN OINT 2% 1 INCH PACKET TOP ×2 (21:14→21:26)
[2025-02-15] MEDS: OSELTAMIVIR 75 MG CAPSULE PO (21:14)
[2025-02-15 21:23] LABS: Alanine Aminotransferase 8 U/L (10-49); Albumin, Serum 3.1 gm/dL (3.4-4.8); Albumin/Globulin Ratio 0.8 (1.2-2.2); Alkaline Phosphatase 62 U/L (46-116); Anion Gap 9 (7-16); Aspartate Amino Transferase 10 U/L (0-34); BUN/Creatinine Ratio 27 Ratio (12-20); Bilirubin,Direct 0.4 mg/dL (0.0-0.3); Bilirubin,Total 0.8 mg/dL (0.3-1.2); Blood Urea Nitrogen 51 mg/dL (9-23); C-Reactive Protein 9.4 mg/dL (0.0-0.9); Calcium 8.8 mg/dL (8.3-10.6); Calcium (Corrected) 9.5 mg/dL (8.5-10.1); Carbon Dioxide 22.4 mMol/L (20.0-31.0); Chloride 106 mMol/L (98-107); Creatinine (Component) 1.9 mg/dL (0.6-1.3); Estimated Creatinine Clearance 25.6 mL/min (>60); Free T4 (Free Thyroxine) 1.10 ng/dL (0.89-1.76); Globulin 3.9 gm/dL (2.3-3.5); Glucose 136 mg/dL (74-106); Magnesium 1.2 mg/dL (1.6-2.6); Osmolality,Calculated 289 (275-295); Potassium 4.5 mMol/L (3.4-5.1); Procalcitonin 1.98 ng/ml (0.0-0.49); Sodium 137 mMol/L (136-145); Thyroid Stimulating Hormone 1.78 uIU/mL (0.55-4.78); Total Protein 7.0 gm/dL (5.7-8.2); Troponin I 0.039 ng/mL (0.0-0.045); eGFR 34 See Note
[2025-02-15] MEDS: ALBUTEROL/IPRATROPIUM (Duoneb) RT SOL 3 ML NEBU INH (21:24)
[2025-02-15 21:25] LABS: D-Dimer 2270 ng/mL (<600)
--- NOTE | 2025-02-15 21:28 | ESHP_ITS ---
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 Also reports having known-productive cough for the past 2 to 3 days however denies fevers, chills. Patient has limited mobility due to his chronic illnesses however able to stand and walk within the house. He denies chest pain, palpitations, syncope, dizziness, abdominal pain, nausea, vomiting, or diarrhea, bowel bladder dysfunction (patient is bladder incontinent at baseline). On presentation to ED patient was hypoxic requiring BiPAP therapy, hypotensive requiring vasopressors with severe neutropenia, anemia, thrombocytopenia. Further workup did reveal elevated creatinine 1.9, elevated BNP 3200 however lactate is within normal limits. CRP and procalcitonin and D- dimers are significantly elevated. CXR did reveal extensive bilateral pulmonary infiltrates right > left consistent with possible pneumonia and fluid overload state. Patient's son (body) at bedside did report that patient is DNR/DNI however patient is alert oriented and demands FULL resuscitation. Will honor patient's wishes if patient deteriorates. Remote history of smoking for few years, no heavy EtOH or substance use history. Retired lives in a independent living facility Review of Systems Review of Systems Narrative Review of Systems: 12 point review of systems unremarkable except as above Meds Home Medications and Allergies Home Medications ?Medication ?Instructions ?Recorded ?Confirmed ?Type aspirin 81 mg tablet 81 mg PO DAILY 08/16/2301/26 History Held on 11/07/24. Instructions: Resume on 11/08/24. finasteride 5 mg tablet 5 mg PO DAILY 08/16/2302/16 History fluticasone propionate 50 1 spray intranasal BID 08/1602/16/25 History mcg/actuation nasal spray,suspension levothyroxine 25 mcg tablet 25 mcg PO DAILY 08/16/23 0 02/16/25 History pantoprazole 40 mg tablet,delayed 40 mg PO DAILY 08/1602/16/25 History release tamsulosin 0.4 mg capsule 0.4 mg PO DAILY 08/16/23 History hydroxyzine HCl 50 mg tablet 50 mg PO QID PRN Anxiety 07/31/24 02/16/25 History Allergies Allergy/AdvReac Type Severity Reaction Status Date / Time No Known Allergies Allergy Verified 11/07/24 08:18 Exam Vital Signs Temp Pulse Resp BP Pulse Ox O2 Del Method FiO2 102.9 F H 74 27 H 111/57 L 96 Room Air 21 02/15/25 20:17 02/15/25 21:26 02/15/25 21:24 02/15/25 21:26 02/15/25 21:24 02/15/25 20:17 02/15/25 21:24 Narrative Physical Exam: General: AO x 3, mild respiratory distress. HEENT: PERRL, JVD distended, Neck supple. Resp: Coarse crackles bilaterally, poor air entry bilaterally Card: Regular Rhythm, Normal rate. Mild systolic murmur at apex Gatro: Soft nontender, nondistended, no organomegaly. Extr: 1+ LE edema, ROM intact, Neuro: No focal neruological deficits. Results - Hospitalist Labs Diagrams: 02/15/25 20:37 02/15/25 20:37 Labs: Short CBC 02/15/25 Range/Units 20:37 WBC 0.7 L* D (3.8-10.6) Thou/mm3 Hgb 7.1 L (13.5-16.0) g/dL Hct 20.3 L* (41.0-53.0) % Plt Count 20 L* D (140-440) Thou/mm3 BMP 02/15/25 20:37 Sodium 137 Potassium 4.5 Chloride 106 Carbon Dioxide 22.4 BUN 51 H Creatinine 1.9 H Glucose 136 H Calcium 8.8 Cardiac Enzymes 02/15/25 Range/Units 20:37 Troponin I 0.039 (0.0-0.045) ng/mL Liver Function 02/15/25 Range/Units 20:37 Total Bilirubin 0.8 (0.3-1.2) mg/dL Direct Bilirubin 0.4 H (0.0-0.3) mg/dL AST 10 (0-34) U/L ALT 8 L (10-49) U/L Alkaline Phosphatase 62 (46-116) U/L Albumin 3.1 L (3.4-4.8) gm/dL ABG Interpretation ABG results: 02/15/25 21:03 ABG pH 7.45 ABG pCO2 33 ABG pO2 66 L ABG HCO3 23 ABG O2 Saturation 95 ABG Base Excess -1 Assessment & Plan -Hospitalist Additional Assessment An 89-year-old M with Hx of MDS on chemotherapy and frequent transfusions (last transfusion 3 days ago, last chemotherapy cylce 10 days ago) HFrEF (EF 15%) s/p FILM SOUND COORDINATOR-D in place (upgrade in 2019), pulmonary hypertension, right heart failure, moderate MR Active issues: Multifactorial shock-cardiogenic and septic Neutropenic fever. 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 Myelodysplastic syndrome - currently on chemotherapy Frequent transfusions-port in place CAD s/p CABG 2019 HFrEF-EF 15% FILM SOUND COORDINATOR-D in place-upgrade 2019 Right heart failure Pulmonary hypertension Moderate MR Fatty liver disease PLAN - Continue vasopressor support with Levophed -Target MAP>65 - Will add vasopressin followed by phenylephrine if additional pressors are required - Continue BiPAP therapy to keep SpO2 > 93% we will proceed with mechanical ventilation if required - Started empirically on broad-spectrum antibiotics with Zosyn, vancomycin and azithromycin. - Continue oseltamivir 75 mg twice daily x 5 days - Will start on Neupogen daily for 3 days -will appreciate hematology/oncology input - Continue diuresis with Lasix 40 mg IV twice daily - Hold on GDMT due to hypotension and septic shock - Repeat CBC in a.m., transfuse with target hemoglobin >7 - Continue trending platelets currently 20K without any evidence of bleeding - Will transfuse platelets if < 10 k or there is evidence of bleeding - Replce magnesium 4 mg IV infusion - Obtain blood cultures, urine culture, respiratory cultures, repeat inflammatory markers - Obtain serologies for cocci, mycoplasma, Legionella and Streptococcus pneumonia - Repeat TTE, EKG, consult cardiology and oncology in the a.m. - Strict ins and outs monitoring, continue telemetry, keep electrolytes WNL - Protonix for GI and heparin for DVT prophylaxis Thiago Ramesh MD Internal medicine, [facility] Quality Measures Quality Measures sepsis Current suspected stage: septic shock (LA >4 and/or hypotension) Sepsis reassessment completed at (date): 02/15/25 Sepsis reassessment completed at (time): 23:00 Possible source: pulmonary Blood cultures ordered: yes Antibiotic ordered: Yes Advance care planning discussed with:: patient and child
[2025-02-15] MEDS: AZITHROMYCIN INJ 500 MG in SODIUM CHLORIDE 0.9% 250 ML 250 ML 250 MG IV (21:39)
[2025-02-15 21:43] LABS: Collection Type, Urine Clean Catch
[2025-02-15] MEDS: MethylPREDNISolone SOD SUCC 62.5 MG/ML 2ML VIAL 125 MG IVP (21:47)
[2025-02-15 21:53] LABS: Bilirubin,Urine Negative (Negative); Blood,Urine 1+ (Negative); Clarity,Urine Clear (Clear/Hazy); Color,Urine Lt-Yellow (Lt Yel-Yel); Culture Indicated,Urine Not Indicated; Glucose, Urine Negative (Negative); Ketones,Urine Negative (Negative); Leukocyte Esterase,Urine Negative (Negative); Nitrite,Urine Negative (Negative); PH,Urine 6.0 (5.0-7.0); Protein,Urine Negative (Neg - Trace); RBC,Urine 7 /hpf (0-3); Specific Gravity,Urine 1.012 (1.001-1.035); Squamous Epithelial Cell,Urine < 1 /hpf (0-5); Urobilinogen,Urine Negative mg/dL (0.0-1.0); WBC,Urine 1 /hpf (0-5)
[2025-02-15 21:55] LABS: Slide Review Platelets confirmed
[2025-02-15] MEDS: Magnesium Sulfate 4 GM Ivpb 4 GM/50 ML BAG IV (22:10)
[2025-02-15] MEDS: PIPER/TAZO INJ 4.5 GM in SODIUM CHLORIDE 0.9% (POP) 100 ML IV (22:56)
[2025-02-15] MEDS: LEVOTHYROXINE SODIUM 25 MCG TABLET PO (22:57)
[2025-02-16] VITALS (125 sets, daily range): BP systolic 78–122; BP diastolic 44–76; PULSE 60–106; RESP 0–98; TEMP 36.1–38.3; O2SAT 91–100
[2025-02-16] MEDS: FILGRASTIM INJ (ZARXIO) 300 MCG/0.5 ML SYRINGE SC ×2 (00:14→19:11)
[2025-02-16] MEDS: Vancomycin Inj 1,500 MG in SODIUM CHLORIDE 0.9% 500 ML 500 ML 150 MG IV (00:44)
[2025-02-16 03:05] LABS: Basophils (Manual) 2 % (0-2); Lymphocytes (Manual) 64 % (20-44); Monocytes (Manual) 6 % (2-9); Neutrophils (Manual) 28 % (50-70)
[2025-02-16 04:26] LABS: Base Excess -3 (-3-3); HCO3 22 mEq/L (20-26); Inspired Oxygen, FIO2 25 %; O2 Saturation 98 % (91-98); PCO2 38 mmHg (32.0-48.0); PO2 90 mmHg (83-108); pH, Arterial 7.38 (7.35-7.45)
[2025-02-16 04:27] LABS: Allen Test Performed/OK; Puncture Site Right Radial
[2025-02-16] MEDS: PIPER/TAZO INJ 4.5 GM in SODIUM CHLORIDE 0.9% (POP) 100 ML IV (05:40)
[2025-02-16 07:12] LABS: Basophils # (Auto) 0.0 Thou/mm3 (0.0-0.2); Basophils % (Auto) 1 % (0-2.5); Eosinophils # (Auto) 0.0 Thou/mm3 (0.0-0.5); Eosinophils % (Auto) 0 % (0-10); Hematocrit 20.3 % (41.0-53.0); Immature Granulocytes Auto 0.09 Thou/mm3 (0.00-0.00); Lymphocytes # (Auto) 0.3 Thou/mm3 (1.0-4.8); Lymphocytes % (Auto) 43 % (10-50); Mean Corpuscular HGB Conc 35.0 g/dl (31.0-37.0); Mean Corpuscular Hemoglobin 29.1 pg (25.0-35.0); Mean Corpuscular Volume 83 fL (80-100); Monocytes # (Auto) 0.1 Thou/mm3 (0.0-0.8); Monocytes % (Auto) 8 % (0-12); Neutrophils # (Auto) 0.3 Thou/mm3 (1.8-7.7); Neutrophils % (Auto) 35 % (37-80); Nucleated Red Blood Cell # 0.00 Thou/mm3 (0.00-0.00); Nucleated Red Blood Cell % 0 /100 WBC (0); RDW Standard Deviation 45.3 fL (35.1-43.9); Red Blood Count 2.44 Miln/mm3 (4.50-5.90)
[2025-02-16 07:19] LABS: Hemoglobin 7.1 g/dL (13.5-16.0); White Blood Count 0.7 Thou/mm3 (3.8-10.6)
[2025-02-16 07:20] LABS: Platelet Count 21 Thou/mm3 (140-440)
[2025-02-16 07:23] LABS: Slide Review Platelets confirmed
[2025-02-16 07:33] LABS: Alanine Aminotransferase 8 U/L (10-49); Albumin, Serum 3.1 gm/dL (3.4-4.8); Alkaline Phosphatase 59 U/L (46-116); Aspartate Amino Transferase 10 U/L (0-34); Bilirubin,Direct 0.3 mg/dL (0.0-0.3); Bilirubin,Total 0.6 mg/dL (0.3-1.2); Total Protein 6.8 gm/dL (5.7-8.2)
--- NOTE | 2025-02-16 08:08 | ESPR_ITS ---
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 Also reports having known-productive cough for the past 2 to 3 days however denies fevers, chills. Patient has limited mobility due to his chronic illnesses however able to stand and walk within the house. He denies chest pain, palpitations, syncope, dizziness, abdominal pain, nausea, vomiting, or diarrhea, bowel bladder dysfunction (patient is bladder incontinent at baseline). On presentation to ED patient was hypoxic requiring BiPAP therapy, hypotensive requiring vasopressors with severe neutropenia, anemia, thrombocytopenia. Further workup did reveal elevated creatinine 1.9, elevated BNP 3200 however lactate is within normal limits. CRP and procalcitonin and D- dimers are significantly elevated. CXR did reveal extensive bilateral pulmonary infiltrates right > left consistent with possible pneumonia and fluid overload state. Admitted to the ICU for Cardiogenic shock requiring Norepinephrine infusion. 02/16/2025: Overnight patient had no events. Levophed infusion was titrated and discontinued this morning. Fluid balance of -1282 cc in 24 hours. Received Lasix 120 Mg IV yesterday. Patient transitioned from BiPAP to room air this morning and saturating 98% on room air. Hb 7.1, WBC 0.7 [ANC 0.23], PLT 21, BUN 52, CR one 1.9. Chest x-ray showed bilateral edema and increased vascular markings bilaterally. Patient is off of Levophed and clinically his signs of shock have resolved, cap refill <2 seconds, extremities warm and dry. However MAP fluctuates between 63?65. Will order lactate and central mixed venous SVO 2 to investigate if patient requires a MAP greater than 65. Urinalysis negative, so far blood and urine culture showed no signs of growth, will discontinue antibiotics. Also patient afebrile overnight after 1 temperature of 102.9 on admission, no need for further doses of filgrastim. Dr. Corona, [facility] oncologist was curb sided about the case and recommended for filgrastim x1, she also said that if patient has any further episodes of fever or deteriorates, to initiate emergent transfer to [facility] as there is a high chance of patient developing a blast crisis due to his MDS and ANC of 0.2. Per Dr. Corona she has admitting privileges at [facility] and will facilitate transfer if necessary. Exam Vital Signs Temp Pulse Resp BP Pulse Ox O2 Del Method O2 Flow Rate 96.9 F 70 21 H 83/44 L 98 CPAP 02/16/25 04:00 02/16/25 06:37 02/16/25 06:37 02/16/25 06:21 02/16/25 06:37 02/16/25 04:00 02/15/25 23:04 FiO2 02/16/25 06:37 Narrative Exam Constitutional Alert, oriented x 3 and comfortable. Elderly male, cachectic, bitemporal wasting HEENT Vision grossly intact. Patent nares. Trachea midline Respiratory Chest normal on inspection and decreased air entry at bases with mild crackles. ROTARY PUMP OPERATOR-D noted right chest wall, Nitropatch on left. Right subclavian Port-A-Cath noted. Exit site clean Cardiovascular S1 and S2 audible, RRR. No murmurs carotid bruit. No gross JVD. Abdominal: Soft, thin and non tender to palpation in all quadrants. BS + Genitourinary No bladder tenderness, no flank pain. Normal to palpation Musculoskeletal Extremities tone within normal limits. No LE edema. Neurological CN II - XII grossly intact. Extremity motor and sensation grossly intact. Skin Warm, dry and intact. No apparent lesions. Psychiatric Patient has good affect, is cooperative Objective Labs 02/23/25 05:32 02/23/25 05:32 Labs: Laboratory Results - last 24 hr 02/15/25 02/15/25 02/15/25 20:20 20:22 20:32 WBC RBC Hgb Hct MCV MCH MCHC RDW Std Deviation Plt Count Neut % (Auto) Lymph % (Auto) [place] % (Auto) Eos % (Auto) Baso % (Auto) Neut # (Auto) Lymph # (Auto) [place] # (Auto) Eos # (Auto) Baso # (Auto) Immature Gran # (Auto) Absolute Nucleated RBC Immature Gran % Neutrophils % (Manual) Monocytes % (Manual) Basophils % (Manual) Nucleated RBC % Lymphocytes (Manual) ESR PT 14.5 H INR 1.4 H APTT 28.7 D-Dimer Puncture Site ABG pH ABG pCO2 ABG pO2 ABG HCO3 ABG O2 Saturation ABG Base Excess FiO2 Sodium Potassium Chloride Carbon Dioxide Anion Gap BUN Creatinine Estim Creat Clear Calc eGFR BUN/Creatinine Ratio Glucose Calculated Osmolality Lactic Acid 1.8 Calcium Corrected Calcium Magnesium Total Bilirubin Direct Bilirubin AST ALT Alkaline Phosphatase Troponin I C-Reactive Prot, Quant B-Natriuretic Peptide > 3280 H* Total Protein Albumin Globulin Albumin/Globulin Ratio Beta-Hydroxybutyrate/Acetoacetate Procalcitonin TSH Free T4 Ur Collection Type Urine Color Urine Clarity Urine pH Ur Specific [place] Urine Protein Urine Glucose (UA) Urine Ketones Urine Blood Urine Nitrite Urine Bilirubin Urine Urobilinogen (Auto) Ur Leukocyte Esterase Urine RBC Urine WBC Ur Squamous Epith Cells Urine Bacteria Ur Culture Indicated? RSV Rapid Negative SARS-CoV-2 Ag (Rapid) Negative Misc Test Result 02/15/25 02/15/25 02/15/25 20:37 21:03 21:32 WBC 0.7 L* D RBC 2.43 L Hgb 7.1 L Hct 20.3 L* MCV 84 MCH 29.2 MCHC 35.0 RDW Std Deviation 45.4 H Plt Count 20 L* D Neut % (Auto) 36 L Lymph % (Auto) 52 H [place] % (Auto) 7 Eos % (Auto) 0 Baso % (Auto) 0 Neut # (Auto) 0.3 L Lymph # (Auto) 0.4 L [place] # (Auto) 0.1 Eos # (Auto) 0.0 Baso # (Auto) 0.0 Immature Gran # (Auto) 0.04 H Absolute Nucleated RBC 0.00 Immature Gran % 6 H Neutrophils % (Manual) 28 L Monocytes % (Manual) 6 Basophils % (Manual) 2 Nucleated RBC % 0 Lymphocytes (Manual) 64 H ESR 45 H PT INR APTT D-Dimer 2270 H Puncture Site Right Radial ABG pH 7.45 ABG pCO2 33 ABG pO2 66 L ABG HCO3 23 ABG O2 Saturation 95 ABG Base Excess -1 FiO2 21 Sodium 137 Potassium 4.5 Chloride 106 Carbon Dioxide 22.4 Anion Gap 9 BUN 51 H Creatinine 1.9 H Estim Creat Clear Calc 25.6 L eGFR 34 L BUN/Creatinine Ratio 27 H Glucose 136 H Calculated Osmolality 289 Lactic Acid Calcium 8.8 Corrected Calcium 9.5 Magnesium 1.2 L Total Bilirubin 0.8 Direct Bilirubin 0.4 H AST 10 ALT 8 L Alkaline Phosphatase 62 Troponin I 0.039 C-Reactive Prot, Quant 9.4 H B-Natriuretic Peptide Total Protein 7.0 Albumin 3.1 L Globulin 3.9 H Albumin/Globulin Ratio 0.8 L Beta-Hydroxybutyrate/Acetoacetate 0.1 Procalcitonin 1.98 H TSH 1.78 Free T4 1.10 Ur Collection Type Clean Catch Urine Color Lt-Yellow Urine Clarity Clear Urine pH 6.0 Ur Specific [place] 1.012 Urine Protein Negative Urine Glucose (UA) Negative Urine Ketones Negative Urine Blood 1+ A Urine Nitrite Negative Urine Bilirubin Negative Urine Urobilinogen (Auto) Negative Ur Leukocyte Esterase Negative Urine RBC 7 H Urine WBC 1 Ur Squamous Epith Cells < 1 Urine Bacteria None Ur Culture Indicated? Not Indicated RSV Rapid SARS-CoV-2 Ag (Rapid) Misc Test Result Platelets confirmed 02/16/25 02/16/25 04:15 05:29 WBC 0.7 L* RBC 2.44 L Hgb 7.1 L Hct 20.3 L* MCV 83 MCH 29.1 MCHC 35.0 RDW Std Deviation 45.3 H Plt Count 21 L* Neut % (Auto) 35 L Lymph % (Auto) 43 [place] % (Auto) 8 Eos % (Auto) 0 Baso % (Auto) 1 Neut # (Auto) 0.3 L Lymph # (Auto) 0.3 L [place] # (Auto) 0.1 Eos # (Auto) 0.0 Baso # (Auto) 0.0 Immature Gran # (Auto) 0.09 H Absolute Nucleated RBC 0.00 Immature Gran % 13 H Neutrophils % (Manual) Monocytes % (Manual) Basophils % (Manual) Nucleated RBC % 0 Lymphocytes (Manual) ESR PT INR APTT D-Dimer Puncture Site Right Radial ABG pH 7.38 ABG pCO2 38 ABG pO2 90 D ABG HCO3 22 ABG O2 Saturation 98 ABG Base Excess -3 FiO2 25 Sodium Potassium Chloride Carbon Dioxide Anion Gap BUN Creatinine Estim Creat Clear Calc eGFR BUN/Creatinine Ratio Glucose Calculated Osmolality Lactic Acid Calcium Corrected Calcium Magnesium Total Bilirubin 0.6 Direct Bilirubin 0.3 AST 10 ALT 8 L Alkaline Phosphatase 59 Troponin I C-Reactive Prot, Quant B-Natriuretic Peptide Total Protein 6.8 Albumin 3.1 L Globulin Albumin/Globulin Ratio Beta-Hydroxybutyrate/Acetoacetate Procalcitonin TSH Free T4 Ur Collection Type Urine Color Urine Clarity Urine pH Ur Specific [place] Urine Protein Urine Glucose (UA) Urine Ketones Urine Blood Urine Nitrite Urine Bilirubin Urine Urobilinogen (Auto) Ur Leukocyte Esterase Urine RBC Urine WBC Ur Squamous Epith Cells Urine Bacteria Ur Culture Indicated? RSV Rapid SARS-CoV-2 Ag (Rapid) Misc Test Result Platelets confirmed ABG Interpretation ABG results: 02/15/25 02/16/25 21:03 04:15 ABG pH 7.45 7.38 ABG pCO2 33 38 ABG pO2 66 L 90 D ABG HCO3 23 22 ABG O2 Saturation 95 98 ABG Base Excess -1 -3 Quality Measures Quality Measures sepsis Current suspected stage: ruled out Possible source: pulmonary Blood cultures ordered: yes Antibiotic ordered: Yes Advance care planning discussed with:: patient Assessment & Plan Assessment Current Active Medications: Generic Name Dose Route Start Last Admin Trade Name Freq PRN Reason Stop Dose Admin Acetaminophen 650 mg 02/15/25 22:26 Acetaminophen 325 Mg Tablet PO 03/17/25 22:25 Q4HR PRN PAIN SCALE 1-3 (mild Acetaminophen 650 mg 02/15/25 22:26 Acetaminophen Supp 650 Mg Supp FL 03/17/25 22:25 Q4HR PRN PAIN SCALE 1-3 (mild Al Hydrox/Mg Hydrox/Simethicone 30 ml 02/15/25 22:26 Mg Hyd/Al Hyd/Samantha (Maalox Reg) Susp 30 Ml Udc PO 03/17/25 22:25 Q4HR PRN Heartburn or Upset Stomach Heparin Sodium (Porcine) 5,000 unit 02/16/25 06:00 02/16/25 05:41 Heparin Sod Inj 5000 Unit/Ml Vial SC 03/02/25 05:59 Not Given Q8HR PRASANTH Norepinephrine Bitartrate 16 mg in 250 mls @ 3.126 mls/hr 02/15/25 20:19 02/16/25 07:00 Levophed In Ns 16mg/250ml IV 03/17/25 20:18 0.05 mcg/kg/min .Q24H PRN 3.126 mls/hr PER PROTOCOL Titration Protocol 0.05 MCG/KG/MIN Piperacillin Sod/Tazobactam 100 mls @ 25 mls/hr 02/16/25 06:00 02/16/25 05:40 Sod 4.5 gm/ Sodium Chloride IV 02/22/25 22:44 25 mls/hr Q8HR PRASANTH Administration Magnesium Hydroxide 30 ml 02/15/25 22:26 Milk Of Magnesia Susp 30 Ml Udc PO 03/17/25 22:25 QDAY PRN CONSTIPATION Nitroglycerin 0.4 mg 02/15/25 22:26 Nitroglycerin 0.4 Mg Subl Btl #25 SL Q5MIN PRN CHEST PAIN Oseltamivir Phosphate 30 mg 02/16/25 09:00 Oseltamivir 30 Mg Capsule PO 02/23/25 08:59 DAILY PRASANTH Pantoprazole Sodium 40 mg 02/16/25 09:00 Pantoprazole 40 Mg Tablet PO 03/18/25 08:59 DAILY PRASANTH Pharmacy Consult 1 each 02/16/25 07:56 Vancomycin Pharmacy To Dose 1 Each Each IV 03/18/25 07:55 QDAY PRN CONSULT Tamsulosin HCl 0.4 mg 02/16/25 09:00 Tamsulosin Hcl 0.4 Mg Capsule PO 03/18/25 08:59 DAILY PRASANTH Plan An 89-year-old M with 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 Also reports having known-productive cough for the past 2 to 3 days however denies fevers, chills. Admitted to the ICU for Cardiogenic shock requiring Norepinephrine infusion. NEURO No acute problems CVS Cardiogenic shock secondary to CHF exacerbation Dx: BNP > 3000 on admission. Chest x-ray showed bilateral pulmonary edema and increased vascular markings. Negative fluid balance of -1287 cc in past 24 hours. NYHA class D stage III Rx: Discontinue Levophed infusion. Repeat serum lactate and central mixed venous O2 to assess for perfusion RRX: Follow-up on lactate and mixed venous O2. Once within normal limits, no need to maintain MAP greater than 65 as patient has adequate perfusion. Cap refill less than 2 seconds, extremities warm and dry and no signs of mottling. 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 - Negative fluid balance of -1287 cc in past 24 hours. NYHA class D stage III - Chest x-ray showed bilateral pulmonary edema and increased vascular markings. 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 Severe left ventricular enlargement, severely reduced LV function with estimated EF 10-15% and severe global hypokinesis. Mild to moderate right ventricular enlargement with moderate RV dysfunction. RVSP 35 to 40 mmHg. Severe biatrial enlargement. IVC dilated. Moderate AV sclerosis without stenosis and moderate MR and TR. Rx: Discontinued Levophed infusion. Patient will need to restart Entresto once blood pressure allows as part of GDMT and diuresis as per cardiology recommendations. Daily weights, 2G sodium restricted diet, 1500 cc fluid restriction. 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 Murphy consulted. Appreciate recommendations CAD s/p CABG x 4 Aspirin and antiplatelets on hold due to severe anemia and thrombocytopenia secondary to MDS requiring chronic transfusions and currently on chemotherapy with azacitidine Group 2 pulmonary hypertension Moderate mitral regurgitation and tricuspid regurgitation Aortic valve sclerosis Rx: Treat underlying cause PULM Group 2 pulmonary hypertension Dx: See echo report under CVS Rx: Treat CHF GI/Hep No acute problems RENAL CKD stage IIIb Dx: Baseline CR between 1.6/1.9 Rx: Renally dose medication, avoid nephrotoxic agents RRX: Continue to monitor creatinine on renal panel especially when IV diuresis resumed HEME/ONC Normocytic Anemia Thrombocytopenia Leukopenia with neutropenia DDx: Secondary to myelodysplastic syndrome Dx: Patient's on chemotherapy with azacitidine and chronic PRBC infusions for symptomatic anemia. Last transfusion 3 days ago and chemotherapy 10 days ago. Hb 7.1, WBC 0.7 [ANC 0.23], PLT 21 Rx: Patient received 1 dose of filgrastim on 02/15. Respiratory nursing, neutropenic precaution RRX: Dr. Corona, heme oncologist was curb sided about the case and recommended for filgrastim x1, she also said that if patient has any further episodes of fever or deteriorates, to initiate emergent transfer to [facility] as there is a high chance of patient developing a blast crisis due to his MDS and ANC of 0.2. Per Dr. Corona she has admitting privileges at [facility] and will facilitate transfer if necessary. Myelodysplastic syndrome Continue outpatient follow-up with heme oncologist, Dr. Corona for azacitidine and PRBC infusions for symptomatic anemia ENDO Hypothyroidism Dx:Home medication levothyroxine 25 mcg p.o. daily. TSH 1.78 Rx: Resume home medication tomorrow ID Neutropenic fever?resolved Dx: ANC 0.23. T 102.7F on 02/15 Rx: Patient received 1 dose of Zosyn, vancomycin and azithromycin on 02/15. Currently no signs of infection, urinalysis negative. Blood and urine cultures so far negative. At present no indication for continued broad-spectrum antibiotics. Patient came in and found to have 2 or more SIRS criteria and was evaluated for sepsis. However, based upon further work-up, sepsis was ruled out. RRX: Follow-up on culture results Influenza A Continue Tamiflu 30mg po daily [Renally dosed] MSK/DERM No acute problems ICU Health maintenance: Dispo: Admit to ICU for Cardiogenic shock Diet: Cardiac, 1500 cc fluid restrict DVT ppx: SCDs GI ppx: Protonix 40mg qD IV lines: 2 pIV Central line: Right subclavian port-a-cath Arterial line: No Douglass: No Code status: FULL CODE Plan of care discussed with Attending Dr. Barbara Parker MD PGY 1 Disclaimer: This note was dictated by speech recognition. Minor errors in print buyer may be present due to voice recognition software. Attending Provider Attestation/Addendum Patient seen and examined with above resident, Amilcar Yousif MD. I agree with the findings, assessment, and plan of care as documented except for any differences below. Patient admitted with neutropenic fever and predominantly cardiogenic shock requiring Levophed. He is influenza A positive and we will continue on Tamiflu. No other signs of localized infection based on extensive screening. Patient with reduced ANC on reverse precautions. Will hold all other antibiotics at this time and administer filgrastim as per hematology recommendations. Patient was successfully weaned off Levophed and will need resumption of goal-directed medical therapy for his heart failure. Will hold today with anticipation to be able to resume in coming days as his blood pressure stabilizes. He did diurese well overnight with improvement in his gas exchange. Notably also, throughout the day patient's blood pressure has been on the soft side. Lactic acid has been cleared suggesting adequate perfusion and we did try to send mixed venous saturation from the port. No evidence of need for inotropic support at this time or resumption of vasopressors. Patient may require midodrine in the long-term to allow augmentation of goal-directed medical therapy but I will defer this ultimately to cardiology. If patient remains stable overnight he will likely be able to transfer to telemetry for ongoing monitoring and care prior to discharge. Patient updated on plan of care at bedside. Total critical care time: I personally spent 40 minutes for review of physiologic parameters, directing plan of care time today, coordination of care with other subspecialists, and counseling patient at bedside. This is exclusive of time spent teaching of staff or performing any separate billable procedures. Patient remains at significant risk for further morbidity and mortality warranting close monitoring care only available in the ICU. Patient required critical care services for neutropenic fever, influenza A infection, cardiogenic shock, and acute decompensated chronic/diastolic heart failure.
[2025-02-16] MEDS: OSELTAMIVIR 30 MG CAPSULE PO (08:34)
[2025-02-16] MEDS: PANTOPRAZOLE 40 MG TABLET PO (08:34)
[2025-02-16] MEDS: FUROSEMIDE INJ 10 MG/ML 4ML VIAL 40 MG IVP (08:34)
[2025-02-16] MEDS: TAMSULOSIN HCL 0.4 MG CAPSULE PO (08:34)
[2025-02-16 09:18] LABS: Albumin, Serum 3.4 gm/dL (3.4-4.8); Anion Gap 9 (7-16); BUN/Creatinine Ratio 27 Ratio (12-20); Blood Urea Nitrogen 52 mg/dL (9-23); Calcium 9.2 mg/dL (8.3-10.6); Calcium (Corrected) 9.7 mg/dL (8.5-10.1); Carbon Dioxide 23.0 mMol/L (20.0-31.0); Chloride 104 mMol/L (98-107); Creatinine (Component) 1.9 mg/dL (0.6-1.3); Estimated Creatinine Clearance 25.6 mL/min (>60); Glucose 184 mg/dL (74-106); Magnesium 2.1 mg/dL (1.6-2.6); Osmolality,Calculated 290 (275-295); Phosphorous 4.8 mg/dL (2.4-5.1); Potassium 4.1 mMol/L (3.4-5.1); Sodium 136 mMol/L (136-145); eGFR 34 See Note
[2025-02-16 12:03] LABS: Cocci Serology, IgM Negative (Negative)
[2025-02-16] MEDS: PIPER/TAZO 3.375 GM PREMIX 3.375 GM/50 ML BAG IV ×2 (13:24→21:04)
[2025-02-16] MEDS: Milk Of Magnesia Susp 30 ML UDC PO (13:44)
[2025-02-16 15:23] LABS: Collection Type, Urine Catheter; Squamous Epithelial Cell,Urine 0 /hpf (0-5)
[2025-02-16 15:33] LABS: Bacteria,Urine Rare; Bilirubin,Urine Negative (Negative); Blood,Urine 3+ (Negative); Clarity,Urine Turbid (Clear/Hazy); Color,Urine Lt-Yellow (Lt Yel-Yel); Glucose, Urine Negative (Negative); Ketones,Urine Negative (Negative); Leukocyte Esterase,Urine Negative (Negative); Nitrite,Urine Negative (Negative); PH,Urine 5.0 (5.0-7.0); Protein,Urine Negative (Neg - Trace); RBC,Urine 139 /hpf (0-3); Specific Gravity,Urine 1.013 (1.001-1.035); Urobilinogen,Urine Negative mg/dL (0.0-1.0); WBC,Urine 4 /hpf (0-5)
--- NOTE | 2025-02-16 16:17 | PD.RESCONSUL ---
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 Patient [facility] the [facility], shortness of breath and low blood pressure. Patient stated increased productive cough with phlegm shortly after eating with poor oral intake. Worsening shortness of breath. Patient at baseline sleeps upright. Denies lower pedal edema. Noted to have a low blood pressure at home. Yesterday developed pyrexia of 102.6 Fahrenheit. This prompted patient to seek medical care. Recent follow-up with cardiology. Most recent medication that has been added, spironolactone 25 mg daily. Patient is unsure how long ago this was added. Bumex is taken 1 mg as needed secondary to open low blood pressure. Patient admitted directly to the ICU Cardiology consulted given severe congestive heart failure ejection fraction of 10 to 15% (02/15/2025) ER course vitals Blood pressure 89/45, heart rate 85, respiratory rate 22, temperature 102.9 (sepsis alert). Pancytopenia noted: WBC count 0.7, hemoglobin 7.1, hematocrit 20.3, MCV 84, platelet count 20 D-dimer 2270 CMP: BUN 51, creatinine 1.9, 34 (ESTELLA on CKD) C-reactive protein 9.4, Pro-Emiliano calcitonin 1.98 TSH 1.78 BNP greater than 3280 Medication: BiPAP, Tylenol, Toradol, nitroglycerin, morphine, Lasix 80 mg IV, DuoNebs, Solu-Medrol 125, Levophed drip started, Rocephin, azithromycin, oral Tamiflu PMH: Same as above History of frequent blood transfusions Started Vidaza Past Surgical History: CABG x 3 Cholecystectomy (2023) Bilateral cataract surgery Sinus surgery Past Family History: Paternal parent-liver disease likely secondary to alcohol use disorder Maternal parent kidney disease Home Medication: Aspirin 81 Carvedilol 3.125 mg twice daily Entresto 0.5 p.o. twice daily Spironolactone 25 mg p.o. daily Bumex 1 mg, as needed, but prescribed for every other day Levothyroxine 25 mcg G p.o. daily Dexamethasone 4 mg Finasteride 5 mg p.o. daily Tamsulosin Fluticasone Hydroxyzine Pantoprazole 40 mg p.o. 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 NO Hoarseness, NO sore throat, NO swollen neck. Cardiac: NO Palpitations, Yes dyspnea on exertion, yes orthopnea, NO paroxysmal nocturnal dyspnea, NO edema Respiratory: YES Shortness of Breath, NO Wheezing, YES Cough, NO Sputum, NO hemoptysis GI:NO appetite, NO nausea, NO vomiting, NO dysphagia, NO changes in bowel frequency, NO stool color, YES diarrhea, NO constipation, NO hemetemesis, NO hemorrhoids, NO melena, NO hematechezia, NO abdominal pain, NO jaundice Renal: NO frequency, NO hesitancy, NO urgency, NO hematuria, NO nocturia, NO incontinence MSK: NO muscle weakness, NO gout, NO arthritis, NO muscle stiffness Neuro: NO headaches, NO tremors, NO weakness, NO paralysis, NO seizures, NO loss of consciousness, NO numbness. Hem: NO anemia, NO easy bruising/bleeding, NO petechiae, NO purpura Endo: NO heat/cold intolerance, NO excessive sweating, NO polyuria, NO polydipsia, NO polyphagia, YES thyroid problems, NO diabetes Pysch: NO mood, NO anxiety, NO depression Exam Vital Signs Temp Pulse Resp BP Pulse Ox O2 Del Method O2 Flow Rate 97.9 F 93 36 H 97/56 L 93 L Room Air 02/16/25 12:00 02/16/25 15:15 02/16/25 15:15 02/16/25 15:15 02/16/25 15:15 02/16/25 12:00 02/15/25 23:04 FiO2 02/16/25 06:37 Narrative Exam General Appearance: Alert & Oriented X3, thin male with temporal wasting, who is lying in bed in no acute distress, on room air at spO2 97% HEENT: Skull symmetrical and atraumatic. Conjunctivae pale pink and moist. Pupils equal, round, reactive to light and accommodation (PERRL). External ear without lesion or discharge. Cardio: Normal Rate and Rhythm with S1 and S2 heart sounds. No bruits on carotid auscultation. Peripheral edema, 1+ Lungs: Symmetric with good expansion. Chest and back non-tender. Decreased vesicular breath sounds. Abdomen: Non-tender, Non-distended, Normal Reactive Bowel Sounds Neuro: Alert, cooperative, oriented to person, place, and time. Speech clear. CN grossly intact. Upper motor strength 5/5 and Lower motor strength 4/5. Sensation intact. Results Labs 02/17/25 07:11 02/17/25 07:11 Labs: Short CBC 02/15/25 02/16/25 Range/Units 20:37 05:29 WBC 0.7 L* D 0.7 L* (3.8-10.6) Thou/mm3 Hgb 7.1 L 7.1 L (13.5-16.0) g/dL Hct 20.3 L* 20.3 L* (41.0-53.0) % Plt Count 20 L* D 21 L* (140-440) Thou/mm3 BMP 02/15/25 02/16/25 20:37 08:42 Sodium 137 136 Potassium 4.5 4.1 Chloride 106 104 Carbon Dioxide 22.4 23.0 BUN 51 H 52 H Creatinine 1.9 H 1.9 H Glucose 136 H 184 H Calcium 8.8 9.2 Cardiac Enzymes 02/15/25 Range/Units 20:37 Troponin I 0.039 (0.0-0.045) ng/mL Liver Function 02/15/25 02/16/25 02/16/25 Range/Units 20:37 05:29 08:42 Total Bilirubin 0.8 0.6 (0.3-1.2) mg/dL Direct Bilirubin 0.4 H 0.3 (0.0-0.3) mg/dL AST 10 10 (0-34) U/L ALT 8 L 8 L (10-49) U/L Alkaline Phosphatase 62 59 (46-116) U/L Albumin 3.1 L 3.1 L 3.4 (3.4-4.8) gm/dL Urine 02/15/25 02/16/25 Range/Units 21:32 15:10 Urine Color Lt-Yellow Lt-Yellow (Lt Yel-Yel) Urine Clarity Clear Turbid A (Clear/Hazy) Urine pH 6.0 5.0 (5.0-7.0) Ur Specific [place] 1.012 1.013 (1.001-1.035) Urine Protein Negative Negative (Neg - Trace) Urine Glucose (UA) Negative Negative (Negative) ABG Interpretation ABG results: 02/15/25 02/16/25 21:03 04:15 ABG pH 7.45 7.38 ABG pCO2 33 38 ABG pO2 66 L 90 D ABG HCO3 23 22 ABG O2 Saturation 95 98 ABG Base Excess -1 -3 Quality Measures Quality Measures sepsis Current suspected stage: ruled out Possible source: pulmonary Blood cultures ordered: yes Antibiotic ordered: Yes Advance care planning discussed with:: patient Medications Home Medications and Allergies Home Medications ?Medication ?Instructions ?Recorded ?Confirmed ?Type aspirin 81 mg tablet 81 mg PO DAILY 08/16/23 02/16/25 History Held on 11/07/24. Instructions: Resume on 11/08/24. finasteride 5 mg tablet 5 mg PO DAILY 08/16/23 02/16/25 History fluticasone propionate 50 1 spray intranasal BID 08/16/23 02/16/25 History mcg/actuation nasal spray,suspension levothyroxine 25 mcg tablet 25 mcg PO DAILY 08/16/23 02/16/25 History pantoprazole 40 mg tablet,delayed 40 mg PO DAILY 08/16/23 02/16/25 History release tamsulosin 0.4 mg capsule 0.4 mg PO DAILY 08/16/23 02/16/25 History hydroxyzine HCl 50 mg tablet 50 mg PO QID PRN Anxiety 07/31/24 02/16/25 History Allergies Allergy/AdvReac Type Severity Reaction Status Date / Time No Known Allergies Allergy Verified 11/07/24 08:18 Visit Medications Acetaminophen (Acetaminophen 325 Mg Tablet) 650 mg PO Q4HR PRN PRN Reason: PAIN SCALE 1-3 (mild Stop: 03/17/25 22:25 Acetaminophen (Acetaminophen Supp 650 Mg Supp) 650 mg SD Q4HR PRN PRN Reason: PAIN SCALE 1-3 (mild Stop: 03/17/25 22:25 Al Hydrox/Mg Hydrox/Simethicone (Mg Hyd/Al Hyd/Samantha (Maalox Reg) Susp 30 Ml Udc) 30 ml PO Q4HR PRN PRN Reason: Heartburn or Upset Stomach Stop: 03/17/25 22:25 Norepinephrine Bitartrate (Levophed In Ns 16mg/250ml) 16 mg in 250 mls @ 3.126 mls/hr IV .Q24H PRN; Protocol PRN Reason: PER PROTOCOL Stop: 03/17/25 20:18 Last Titration: 02/16/25 14:07 Dose: 0 mcg/kg/min, 0 mls/hr Piperacillin/Tazobactam/Dextrose (Zosyn) 3.375 gm in 50 mls @ 12.5 mls/hr IV Q8HR PRASANTH Stop: 02/22/25 22:44 Last Admin: 02/16/25 13:24 Dose: 12.5 mls/hr Magnesium Hydroxide (Milk Of Magnesia Susp 30 Ml Udc) 30 ml PO QDAY PRN PRN Reason: CONSTIPATION Stop: 03/17/25 22:25 Last Admin: 02/16/25 13:44 Dose: 30 ml Nitroglycerin (Nitroglycerin 0.4 Mg Subl Btl #25) 0.4 mg SL Q5MIN PRN PRN Reason: CHEST PAIN Oseltamivir Phosphate (Oseltamivir 30 Mg Capsule) 30 mg PO DAILY PRASANTH Stop: 02/23/25 08:59 Last Admin: 02/16/25 08:34 Dose: 30 mg Pantoprazole Sodium (Pantoprazole 40 Mg Tablet) 40 mg PO DAILY PRASANTH Stop: 03/18/25 08:59 Last Admin: 02/16/25 08:34 Dose: 40 mg Pharmacy Consult (Vancomycin Pharmacy To Dose 1 Each Each) 1 each IV QDAY PRN PRN Reason: CONSULT Stop: 03/18/25 07:55 Tamsulosin HCl (Tamsulosin Hcl 0.4 Mg Capsule) 0.4 mg PO DAILY PRASANTH Stop: 03/18/25 08:59 Last Admin: 02/16/25 08:34 Dose: 0.4 mg Discontinued Medications Albuterol/Ipratropium (Albuterol/Ipratropium (Duoneb) Rt Chio 3 Ml Nebu) 3 ml INH X1 ONE Stop: 02/15/25 21:16 Last Admin: 02/15/25 21:24 Dose: 3 ml Filgrastim (Filgrastim Inj (Neupogen) 300 Mcg/Ml Vial) 300 mcg SC X1 ONE Stop: 02/15/25 22:24 Last Admin: 02/16/25 00:13 Dose: Not Given Filgrastim (Filgrastim Inj (Zarxio) 300 Mcg/0.5 Ml Syringe) 300 mcg SC X1 ONE Stop: 02/15/25 23:16 Last Admin: 02/16/25 00:14 Dose: 300 mcg Furosemide (Furosemide Inj 10 Mg/Ml 4ml Vial) 40 mg IVP X1 ONE Stop: 02/15/25 20:19 Last Admin: 02/15/25 20:42 Dose: 40 mg Furosemide (Furosemide Inj 10 Mg/Ml 4ml Vial) 40 mg IVP X1 ONE Stop: 02/15/25 20:45 Last Admin: 02/15/25 21:00 Dose: 40 mg Furosemide (Furosemide Inj 10 Mg/Ml 4ml Vial) 40 mg IVP Q12H ONE Stop: 02/16/25 08:01 Last Admin: 02/16/25 08:34 Dose: 40 mg Heparin Sodium (Porcine) (Heparin Sod Inj 5000 Unit/Ml Vial) 5,000 unit SC Q8HR PRASANTH Stop: 03/02/25 05:59 Last Admin: 02/16/25 05:41 Dose: Not Given Ceftriaxone Sodium/Dextrose (Rocephin/D5w 1gm Iv Premix) 1 gm in 50 mls @ 100 mls/hr IV X1 ONE Stop: 02/15/25 20:48 Last Infusion: 02/15/25 21:31 Dose: Infused Acetaminophen (Ofirmev Inj) 1,000 mg in 100 mls @ 250 mls/hr IV X1 ONE Stop: 02/15/25 20:58 Last Infusion: 02/15/25 21:28 Dose: Infused Azithromycin 500 mg/ Sodium (Chloride) 250 mls @ 250 mls/hr IV X1 ONE Stop: 02/15/25 22:07 Last Infusion: 02/15/25 23:02 Dose: Infused Magnesium Sulfate (Magnesium Sulfate Ivpb) 4 gm in 50 mls @ 12.5 mls/hr IV X1 ONE Stop: 02/16/25 01:28 Last Admin: 02/15/25 22:10 Dose: 12.5 mls/hr Magnesium Sulfate (Magnesium Sulfate Ivpb) 4 gm in 50 mls @ 12.5 mls/hr IV X1 ONE Stop: 02/16/25 01:33 Last Admin: 02/15/25 21:51 Dose: Not Given Piperacillin Sod/Tazobactam (Sod 4.5 gm/ Sodium Chloride) 100 mls @ 200 mls/hr IV Q6HR [facility] Stop: 02/22/25 21:35 Last Admin: 02/16/25 06:01 Dose: Not Given Vancomycin HCl 1,500 mg/ (Sodium Chloride) 500 mls @ 150 mls/hr IV X1 ONE Stop: 02/16/25 01:19 Last Admin: 02/16/25 00:44 Dose: 150 mls/hr Piperacillin Sod/Tazobactam (Sod 4.5 gm/ Sodium Chloride) 100 mls @ 200 mls/hr IV Q8H PRASANTH Stop: 02/22/25 22:44 Last Admin: 02/15/25 22:56 Dose: 200 mls/hr Piperacillin Sod/Tazobactam (Sod 4.5 gm/ Sodium Chloride) 100 mls @ 25 mls/hr IV Q8HR PRASANTH Stop: 02/22/25 22:44 Last Admin: 02/16/25 05:40 Dose: 25 mls/hr Ketorolac Tromethamine (Ketorolac Inj 30 Mg/Ml Vial) 7.5 mg IVP X1 ONE Stop: 02/15/25 20:36 Last Admin: 02/15/25 21:06 Dose: Not Given Levothyroxine Sodium (Levothyroxine Sodium 25 Mcg Tablet) 25 mcg PO X1 ONE Stop: 02/15/25 22:41 Last Admin: 02/15/25 22:57 Dose: 25 mcg Methylprednisolone Sodium Succinate (Methylprednisolone Sod Succ 62.5 Mg/Ml 2ml Vial) 125 mg IVP X1 ONE Stop: 02/15/25 21:16 Last Admin: 02/15/25 21:47 Dose: 125 mg Morphine Sulfate (Morphine Sulf Inj 10 Mg/Ml Vial) 2 mg IVP X1 ONE Stop: 02/15/25 20:19 Last Admin: 02/15/25 21:06 Dose: Not Given Nitroglycerin (Nitroglycerin Oint 2% 1 Inch Packet) 1 inch TOP X1 ONE Stop: 02/15/25 20:19 Last Admin: 02/15/25 21:14 Dose: 1 inch Nitroglycerin (Nitroglycerin Oint 2% 1 Inch Packet) 1 inch TOP X1 ONE Stop: 02/15/25 20:45 Last Admin: 02/15/25 21:26 Dose: 1 inch Oseltamivir Phosphate (Oseltamivir 75 Mg Capsule) 75 mg PO X1 ONE Stop: 02/15/25 21:09 Last Admin: 02/15/25 21:14 Dose: 75 mg Oseltamivir Phosphate (Oseltamivir 75 Mg Capsule) 75 mg PO Q12H PRASANTH Stop: 02/22/25 21:44 Last Admin: 02/15/25 21:51 Dose: Not Given Oseltamivir Phosphate (Oseltamivir 75 Mg Capsule) 30 mg PO DAILY PRASANTH Stop: 02/23/25 08:59 Sodium Chloride (Sodium Chloride Rt 10% 15 Ml Nebu) 5 ml INH X1 ONE Stop: 02/16/25 08:14 Assessment & Plan Plan Patient is an 88-year-old male with a past medical history of 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 Patien was admitted overnight directly into the ICU for Shock, likely cardiogenic. Cardiology consulted given worsening EF, now 10 to 15% (02/16/2025). #Acute Hypoxic Respiratory Failure secondary to CHF exacerbation-resolved #Acute on Chronic severe systolic congestive Heart Failure exacerbation #CHF HFrEF 10% to 15%. #S/p RESIDENT PROGRAM SPECIALIST-D # History of endocarditis with infected leads status post RESIDENT PROGRAM SPECIALIST-D removal in 2019 for RESIDENT PROGRAM SPECIALIST-D placed in 2024 #PAH, mildly elevated 35-40 Cardiomypoathy patient has a past medical ischemic cardiomyopathy with RESIDENT PROGRAM SPECIALIST-D and severely reduced ejection fraction despite GDMT as outpatient. CHF exacerbation likely triggered by influenza complicated by history or myelodysplasitic syndrome with resolved neurtropenic fever. Continue to hold other GDMT and continue Lasix. Re-evaluate diuretics, consider restarting Bumex and Midorine it Blood pressure continues to be <65 Echo (02/16/2025): Dilated cardio-myopathy.Severe left ventricular enlargement, severely reduced LV function with an estimated EF of 10 to 15% and severe global hypokinesis. Grade 2 diastolic dysfunction. Mild to moderate right ventricular enlargement with moderate RV dysfunction. RVSP mildly elevated at 35 to 40 mmHg.Severe biatrial enlargement. IVC dilated. No pericardial effusion.Moderate aortic valve sclerosis without stenosis. Moderate MR and moderate TR. Trace AI and mild PI. BNP >3280 TSH (02/16/2025): 1.78 and Free T4 (02/15/2025) 1.10 Lipid Panel: None obtained. NYHA Class: IV Plan: -Lasix 40 mg IV BID, will end overnight, will re-evaluate in the morning -Monitor BP >65 goal -Continue to hold Carvedilol and Spironolactone 25 mg qday -home medication of bumex, re-evaluate AM based on urine output -K>4 and Mg >2 -SpO <90%, support PRN -Daily Weights, Strict Ins and Outs, Fluid Striction (1200), Sodium Restriction 2 grams per day - Will closely follow the blood cultures given history of endocarditis #History of CABG #CAD s/p Stents Patient has a past medical history of CABG and and stents, likely hyperlipidemia. Given Pancytopenia, currently holding Aspirin. Troponin 0.039 Plan -consider lipid panel -no statins listed -Hold Aspirin -Continue to monitor for signs of chest pain #Leukopenia w/ neutropenia #Pneumonia, Influenza Positive #Myelodysplastic disease #Pancytopenia Patient has a past medical history of myelodysplastic disease on chemotherapy likely Vidaz, per Dr. Corona note on 01/20/2025. Diagnosed at [facility] on 02/06/2024. Cocci IgM negative, Legionella Pending, Beta (1,3) D Glucan, Blood Culture pending and Urine Culture Penidng, and MRSA screen pending Plan -Zosyn 02/16/2025 & Tamiflu -If condition worsens, please initiate emergent transfer to [facility] as there is a high schange of patient developing a blast crisis due MDS and ANC of 0.2. *Dr. Corona has admitting privilages at [facility], contact. -Filgrastim X 1 -Chemotherapy, Vidaz -Dexamethasone ? likely only given briefly, consider reaching out to Dr. Corona -Continue to follow blood cultures #ESTELLA on CKD III Patient has a past medical history of chronic kidney disease likely stage III who follows Dr. Burks. ESTELLA on CKD likely secondary to poor oral intake per history taken. BUN/creatinine ratio greater than 20. Monitor for intrinsic renal failure less likely as patient has been having good urine output versus worsening CKD UA noted elevated RBCs 139 and urine blood +3 Plan - Strict ins and outs - Renally dose medication - Avoid nephrotoxins - Consider renal consult if condition worsens - Consider urine electrolytes if no improvement #Hypothyroidism Past medical history of hypothyroidism levothyroxine 25 mcg. TSH (02/15/2025) 1.78 and free T4 (02/15/2025 1.10 Plan - Resume home medication levothyroxine 25 mcg #BNP Tamsulosin 0.4 consider PSA levels given positive RBCs in UA #History of GERD home medication may be protonix #Cardiogenic shock, secondary to CHF exacerbation resolved Patient off pressors Neutropenic Fever-resolved. Health Maintenance: Disp: Pt is currently admitted to floors for further management of cardiogenic shock, improving, cardiology consulted given CHF, HFrEF 10-15%. FEN: Cardiac Diet, fluid restricted 1500 DVT:Compression Device Code: DNR - The patient's plan was discussed with attending Dr. Anumandla Dinora Mcmahon, MD PGY1 Internal Medicine Attending Provider Attestation/Addendum I have personally seen and examined the patient separately on the above date of service and discussed the plan of care with the resident. I reviewed the resident Dr. Dinora Mcmahon consultation progress note and agree with the resident findings and plan in the note above and have also edited the documentation to reflect my findings and plan. Moises Murphy M.D. Interventional Cardiology
[2025-02-16 16:30] LABS: Base Excess, Venous 1 (-3-3); Lactate (Lactic Acid) 2.2 mMol/L (0.4-2.0); O2 Saturation, Venous 63 % (96-97); PCO2, Venous 33 mmHg (36-56); PO2, Venous 31 mmHg (15-58); pH, Venous 7.47 (7.33-7.66)
--- NOTE | 2025-02-16 17:01 | PC.SS ---
SENIOR ENVIRONMENTAL TECHNICIAN conducted bedside contact with the patient conduct initial assessment and to discuss discharge planning.? Patient confirmed demographic information.? Patient resides at home with spouse, Valeria Wyatt.? Patient is retired resides at [facility].? Patient utilizes a wheelchair to assist with mobility.? Patient does not utilize oxygen.? Patient utilizes a C-PAP for nocturnal use.? Patient requires assistance with completion of ADL?s.? Patient possesses caregiver service to assist with completion of ADL?s.? Patient identified son, Dustin Wyatt Jr. ; as surrogate medical decision maker.? Patient?s PCP is Ray Gillette.? Patient?s oncologist is Dr. Corona, [facility].? Patient access transportation via [facility].? Patient reports past alignment with [facility] health.? If home health recommended [facility] preferred agency.? Plan is for the patient to return to [facility] at the time of discharge.? Patient?s family will provide transportation on behalf of the patient. ?No further discharge needs identified by the patient.? No further intervention required at this time, social sciences research scientist will be available to address any further concerns.? Next of Kin: Dustin Wyatt Jr. D/C Plan: Home
--- NOTE | 2025-02-16 18:24 | ESPR_ITS ---
<Statement entered by Alla Lopez MD - 02/26/25 07:47> I reviewed above note and agree with findings and plans. I have also personally examined the patient with medicine team and went over assessment and plan with medical team including it intern and resident physician. Documentation for date of: 02/16/25 Subjective Subjective Interval history: Patient is an ICU downgrade to Team B starting today. 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 Patient was additionally found to have neutropenic fever with severe ANC 252. He was influenza A positive, endorsed productive cough, fever, and chills, and started on oseltamivir. Patient is additionally on vancomycin, Zosyn, and azithromycin. He was given Filgrastin x1 on admission and an additional dose today per Dr. Corona Heme/Onc. Per Dr. Corona if patient has additional fevers or deterioration, initiate transfer to [facility] and contact Dr. Corona for treatment of possible transformation of MDS to acute blast crisis. The patient was weaned off of norepinephrine around 2 pm today. Today, the patient is awake and pleasant, although aware he has multiple issues going on, and that his heart functioning is very poor. He endorses feeling thirsty all the time and states that in fact prior to arrival at the hospital, he was drinking nearly 8 standard sized water bottles daily. He reports very poor appetite otherwise for food. Patient lives with his in [facility] living, and is a long time patient of Dr. Sabillon. Exam Vital Signs Temp Pulse Resp BP Pulse Ox O2 Del Method O2 Flow Rate 98.6 F 106 H 31 H 92/52 L 94 L Room Air 02/16/25 16:00 02/16/25 18:00 02/16/25 18:00 02/16/25 18:00 02/16/25 18:00 02/16/25 12:00 02/15/25 23:04 FiO2 02/16/25 06:37 Narrative Exam Physical Exam General: Awake and in no acute distress. Elderly male, conversational and chronically ill appearing. HEENT: Normocephalic, atraumatic, mucous membranes moist. Heart: Regular rate and rhythm, S3 heart sound present, systolic murmur heard loudest in the left lower sternal border. Sternotomy scars present, CERTIFIED HAND THERAPIST-D on the right side. Lungs: Clear to auscultation with no wheezing or crackles. Abdomen: Soft, nondistended, nontender, positive bowel sounds. ?No guarding or rebound tenderness. Neurologic: Alert and oriented x3, no gross neurological deficit, and patient able to move all 4 extremities. Extremities: Trace bilateral lower extremity ankle edema. Skin: No rash or ecchymoses. Objective Labs 02/16/25 05:29 02/16/25 08:42 Labs: Laboratory Results - last 24 hr 02/15/25 02/15/25 02/15/25 20:20 20:22 20:32 WBC RBC Hgb Hct MCV MCH MCHC RDW Std Deviation Plt Count Neut % (Auto) Lymph % (Auto) Williamson % (Auto) Eos % (Auto) Baso % (Auto) Neut # (Auto) Lymph # (Auto) Williamson # (Auto) Eos # (Auto) Baso # (Auto) Immature Gran # (Auto) Absolute Nucleated RBC Immature Gran % Neutrophils % (Manual) Monocytes % (Manual) Basophils % (Manual) Nucleated RBC % Lymphocytes (Manual) ESR PT 14.5 H INR 1.4 H APTT 28.7 D-Dimer Puncture Site ABG pH ABG pCO2 ABG pO2 ABG HCO3 ABG O2 Saturation ABG Base Excess VBG pH VBG pCO2 VBG pO2 VBG O2 Sat (Mini) VBG Base Excess FiO2 Sodium Potassium Chloride Carbon Dioxide Anion Gap BUN Creatinine Estim Creat Clear Calc eGFR BUN/Creatinine Ratio Glucose Calculated Osmolality Lactic Acid 1.8 Calcium Corrected Calcium Phosphorus Magnesium Total Bilirubin Direct Bilirubin AST ALT Alkaline Phosphatase Troponin I C-Reactive Prot, Quant B-Natriuretic Peptide > 3280 H* Total Protein Albumin Globulin Albumin/Globulin Ratio Beta-Hydroxybutyrate/Acetoacetate Procalcitonin TSH Free T4 Ur Collection Type Urine Color Urine Clarity Urine pH Ur Specific [place] Urine Protein Urine Glucose (UA) Urine Ketones Urine Blood Urine Nitrite Urine Bilirubin Urine Urobilinogen (Auto) Ur Leukocyte Esterase Urine RBC Urine WBC Ur Squamous Epith Cells Urine Bacteria Ur Culture Indicated? Coccidioides IgM Ab RSV Rapid Negative SARS-CoV-2 Ag (Rapid) Negative Misc Test Result 02/15/25 02/15/25 02/15/25 20:37 21:03 21:32 WBC 0.7 L* D RBC 2.43 L Hgb 7.1 L Hct 20.3 L* MCV 84 MCH 29.2 MCHC 35.0 RDW Std Deviation 45.4 H Plt Count 20 L* D Neut % (Auto) 36 L Lymph % (Auto) 52 H Williamson % (Auto) 7 Eos % (Auto) 0 Baso % (Auto) 0 Neut # (Auto) 0.3 L Lymph # (Auto) 0.4 L Williamson # (Auto) 0.1 Eos # (Auto) 0.0 Baso # (Auto) 0.0 Immature Gran # (Auto) 0.04 H Absolute Nucleated RBC 0.00 Immature Gran % 6 H Neutrophils % (Manual) 28 L Monocytes % (Manual) 6 Basophils % (Manual) 2 Nucleated RBC % 0 Lymphocytes (Manual) 64 H ESR 45 H PT INR APTT D-Dimer 2270 H Puncture Site Right Radial ABG pH 7.45 ABG pCO2 33 ABG pO2 66 L ABG HCO3 23 ABG O2 Saturation 95 ABG Base Excess -1 VBG pH VBG pCO2 VBG pO2 VBG O2 Sat (Mini) VBG Base Excess FiO2 21 Sodium 137 Potassium 4.5 Chloride 106 Carbon Dioxide 22.4 Anion Gap 9 BUN 51 H Creatinine 1.9 H Estim Creat Clear Calc 25.6 L eGFR 34 L BUN/Creatinine Ratio 27 H Glucose 136 H Calculated Osmolality 289 Lactic Acid Calcium 8.8 Corrected Calcium 9.5 Phosphorus Magnesium 1.2 L Total Bilirubin 0.8 Direct Bilirubin 0.4 H AST 10 ALT 8 L Alkaline Phosphatase 62 Troponin I 0.039 C-Reactive Prot, Quant 9.4 H B-Natriuretic Peptide Total Protein 7.0 Albumin 3.1 L Globulin 3.9 H Albumin/Globulin Ratio 0.8 L Beta-Hydroxybutyrate/Acetoacetate 0.1 Procalcitonin 1.98 H TSH 1.78 Free T4 1.10 Ur Collection Type Clean Catch Urine Color Lt-Yellow Urine Clarity Clear Urine pH 6.0 Ur Specific [place] 1.012 Urine Protein Negative Urine Glucose (UA) Negative Urine Ketones Negative Urine Blood 1+ A Urine Nitrite Negative Urine Bilirubin Negative Urine Urobilinogen (Auto) Negative Ur Leukocyte Esterase Negative Urine RBC 7 H Urine WBC 1 Ur Squamous Epith Cells < 1 Urine Bacteria None Ur Culture Indicated? Not Indicated Coccidioides IgM Ab RSV Rapid SARS-CoV-2 Ag (Rapid) Misc Test Result Platelets confirmed 02/15/25 02/16/25 02/16/25 23:15 04:15 05:29 WBC 0.7 L* RBC 2.44 L Hgb 7.1 L Hct 20.3 L* MCV 83 MCH 29.1 MCHC 35.0 RDW Std Deviation 45.3 H Plt Count 21 L* Neut % (Auto) 35 L Lymph % (Auto) 43 Williamson % (Auto) 8 Eos % (Auto) 0 Baso % (Auto) 1 Neut # (Auto) 0.3 L Lymph # (Auto) 0.3 L Williamson # (Auto) 0.1 Eos # (Auto) 0.0 Baso # (Auto) 0.0 Immature Gran # (Auto) 0.09 H Absolute Nucleated RBC 0.00 Immature Gran % 13 H Neutrophils % (Manual) Monocytes % (Manual) Basophils % (Manual) Nucleated RBC % 0 Lymphocytes (Manual) ESR PT INR APTT D-Dimer Puncture Site Right Radial ABG pH 7.38 ABG pCO2 38 ABG pO2 90 D ABG HCO3 22 ABG O2 Saturation 98 ABG Base Excess -3 VBG pH VBG pCO2 VBG pO2 VBG O2 Sat (Mini) VBG Base Excess FiO2 25 Sodium Potassium Chloride Carbon Dioxide Anion Gap BUN Creatinine Estim Creat Clear Calc eGFR BUN/Creatinine Ratio Glucose Calculated Osmolality Lactic Acid Calcium Corrected Calcium Phosphorus Magnesium Total Bilirubin 0.6 Direct Bilirubin 0.3 AST 10 ALT 8 L Alkaline Phosphatase 59 Troponin I C-Reactive Prot, Quant B-Natriuretic Peptide Total Protein 6.8 Albumin 3.1 L Globulin Albumin/Globulin Ratio Beta-Hydroxybutyrate/Acetoacetate Procalcitonin TSH Free T4 Ur Collection Type Urine Color Urine Clarity Urine pH Ur Specific [place] Urine Protein Urine Glucose (UA) Urine Ketones Urine Blood Urine Nitrite Urine Bilirubin Urine Urobilinogen (Auto) Ur Leukocyte Esterase Urine RBC Urine WBC Ur Squamous Epith Cells Urine Bacteria Ur Culture Indicated? Coccidioides IgM Ab Negative RSV Rapid SARS-CoV-2 Ag (Rapid) Misc Test Result Platelets confirmed 02/16/25 02/16/25 02/16/25 08:42 15:10 16:15 WBC RBC Hgb Hct MCV MCH MCHC RDW Std Deviation Plt Count Neut % (Auto) Lymph % (Auto) Williamson % (Auto) Eos % (Auto) Baso % (Auto) Neut # (Auto) Lymph # (Auto) Williamson # (Auto) Eos # (Auto) Baso # (Auto) Immature Gran # (Auto) Absolute Nucleated RBC Immature Gran % Neutrophils % (Manual) Monocytes % (Manual) Basophils % (Manual) Nucleated RBC % Lymphocytes (Manual) ESR PT INR APTT D-Dimer Puncture Site ABG pH ABG pCO2 ABG pO2 ABG HCO3 ABG O2 Saturation ABG Base Excess VBG pH 7.47 VBG pCO2 33 L VBG pO2 31 VBG O2 Sat (Mini) 63 L VBG Base Excess 1 FiO2 Sodium 136 Potassium 4.1 Chloride 104 Carbon Dioxide 23.0 Anion Gap 9 BUN 52 H Creatinine 1.9 H Estim Creat Clear Calc 25.6 L eGFR 34 L BUN/Creatinine Ratio 27 H Glucose 184 H Calculated Osmolality 290 Lactic Acid 2.2 H Calcium 9.2 Corrected Calcium 9.7 Phosphorus 4.8 Magnesium 2.1 Total Bilirubin Direct Bilirubin AST ALT Alkaline Phosphatase Troponin I C-Reactive Prot, Quant B-Natriuretic Peptide Total Protein Albumin 3.4 Globulin Albumin/Globulin Ratio Beta-Hydroxybutyrate/Acetoacetate Procalcitonin TSH Free T4 Ur Collection Type Catheter Urine Color Lt-Yellow Urine Clarity Turbid A Urine pH 5.0 Ur Specific [place] 1.013 Urine Protein Negative Urine Glucose (UA) Negative Urine Ketones Negative Urine Blood 3+ A Urine Nitrite Negative Urine Bilirubin Negative Urine Urobilinogen (Auto) Negative Ur Leukocyte Esterase Negative Urine RBC 139 H Urine WBC 4 Ur Squamous Epith Cells 0 Urine Bacteria Rare Ur Culture Indicated? Coccidioides IgM Ab RSV Rapid SARS-CoV-2 Ag (Rapid) Misc Test Result ABG Interpretation ABG results: 02/15/25 02/16/25 02/16/25 21:03 04:15 16:15 ABG pH 7.45 7.38 ABG pCO2 33 38 ABG pO2 66 L 90 D ABG HCO3 23 22 ABG O2 Saturation 95 98 ABG Base Excess -1 -3 VBG pH 7.47 VBG pCO2 33 L VBG pO2 31 VBG Base Excess 1 Quality Measures Quality Measures sepsis Current suspected stage: sepsis Possible source: pulmonary Blood cultures ordered: yes Antibiotic ordered: Yes Advance care planning discussed with:: patient Assessment & Plan Assessment Current Active Medications: Generic Name Dose Route Start Last Admin Trade Name Freq PRN Reason Stop Dose Admin Acetaminophen 650 mg 02/15/25 22:26 Acetaminophen 325 Mg Tablet PO 03/17/25 22:25 Q4HR PRN PAIN SCALE 1-3 (mild Acetaminophen 650 mg 02/15/25 22:26 Acetaminophen Supp 650 Mg Supp NM 03/17/25 22:25 Q4HR PRN PAIN SCALE 1-3 (mild Al Hydrox/Mg Hydrox/Simethicone 30 ml 02/15/25 22:26 Mg Hyd/Al Hyd/Samantha (Maalox Reg) Susp 30 Ml Udc PO 03/17/25 22:25 Q4HR PRN Heartburn or Upset Stomach Piperacillin/Tazobactam/Dextrose 3.375 gm in 50 mls @ 12.5 mls/hr 02/16/25 14:00 02/16/25 13:24 Zosyn IV 02/22/25 22:44 12.5 mls/hr Q8HR PRASANTH Administration Levothyroxine Sodium 25 mcg 02/17/25 06:00 Levothyroxine Sodium 25 Mcg Tablet PO 03/19/25 05:59 ACBR PRASANTH Magnesium Hydroxide 30 ml 02/15/25 22:26 02/16/25 13:44 Milk Of Magnesia Susp 30 Ml Udc PO 03/17/25 22:25 30 ml QDAY PRN Administration CONSTIPATION Nitroglycerin 0.4 mg 02/15/25 22:26 Nitroglycerin 0.4 Mg Subl Btl #25 SL Q5MIN PRN CHEST PAIN Oseltamivir Phosphate 30 mg 02/16/25 09:00 02/16/25 08:34 Oseltamivir 30 Mg Capsule PO 02/23/25 08:59 30 mg DAILY PRASANTH Administration Pantoprazole Sodium 40 mg 02/16/25 09:00 02/16/25 08:34 Pantoprazole 40 Mg Tablet PO 03/18/25 08:59 40 mg DAILY PRASANTH Administration Pharmacy Consult 1 each 02/16/25 07:56 Vancomycin Pharmacy To Dose 1 Each Each IV 03/18/25 07:55 QDAY PRN CONSULT Tamsulosin HCl 0.4 mg 02/16/25 09:00 02/16/25 08:34 Tamsulosin Hcl 0.4 Mg Capsule PO 03/18/25 08:59 0.4 mg DAILY PRASANTH Administration Plan 89-year-old male with past medical history of HFrEF (now 10-15%) s/p CERTIFIED HAND THERAPIST-D (last replaced 2023), ischemic cardiomyopathy, CAD s/p CABG x4, MRSA bacteremia, endocarditis, hypertension, GERD, BPH, CKD stage IV, hypothyroidism, and 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 Patient was weaned off norepinephrine infusion and downgraded to Telemetry on 02/16/2025. 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 Chest x-ray showed bilateral pulmonary edema and increased vascular markings. Patient is NYHA class D stage III. No need to maintain MAP greater than 65 as patient has adequate perfusion. Cap refill less than 2 seconds, extremities warm and dry and no signs of mottling. 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 Severe left ventricular enlargement, severely reduced LV function with estimated EF 10-15% and severe global hypokinesis. Mild to moderate right ventricular enlargement with moderate RV dysfunction. RVSP 35 to 40 mmHg. Severe biatrial enlargement. IVC dilated. Moderate AV sclerosis without stenosis and moderate MR and TR. 02/16 2 pm: Discontinued Levophed infusion. Patient was downgraded to Telemetry. -Cardiology consulted, appreciate recommendations -Daily weights -2G sodium restricted diet -1500 cc fluid restriction #Influenza A pneumonia #Septic shock - resolved #Neutropenic fever?resolved On admission ANC 0.23, T 102.7F on 02/15 Patient came in and found to have 2 or more SIRS criteria and was evaluated for sepsis. Patient had fever and endorsed productive cough and chills prior to hospitalization -Continue Tamiflu 30mg po daily [Renally dosed] -Continue Zosyn, vancomycin until culture -Follow-up on culture results #History of #Normocytic anemia #Thrombocytopenia #Leukopenia with neutropenia Secondary to myelodysplastic syndrome. Patient's on chemotherapy with azacitidine and chronic PRBC infusions for symptomatic anemia. Last transfusion 3 days ago and chemotherapy 10 days ago. Hb 7.1, WBC 0.7 [ANC 0.23], PLT 21 02/15 filgrastim x1 given. 02/16 filgrastim x1 given. -Neutropenic precautions -Dr. Corona contacted as needed for recommendations -If patient has any further episodes of fever or deteriorates, initiate emergent transfer to [facility] as there is a high chance of patient developing a blast crisis due to his MDS and ANC of 0.2. Per Dr. Corona she has admitting privileges at [facility] and will facilitate transfer if necessary. #History of CAD s/p CABG x 4 -Aspirin and antiplatelets on hold due to severe anemia and thrombocytopenia secondary to MDS requiring chronic transfusions and currently on chemotherapy with azacitidine #History of CKD stage IIIb Baseline CR between .6/.9 -Renally dose medication, avoid nephrotoxic agents -Continue to monitor creatinine on renal panel especially when IV diuresis resumed #History of hypothyroidism TSH 1.78 -Continue medication levothyroxine 25 mcg p.o. daily Health maintenance: Dispo: Downgraded from ICU to Tele Diet: Cardiac, 1500 cc fluid restrict DVT ppx: SCDs GI ppx: Protonix 40mg qD IV lines: 2 pIV Central line: Right subclavian port-a-cath Arterial line: No Douglass: No Code status: FULL CODE Patient plan of care was discussed with the attending physician, Dr. Lopez. Lilliana Guzman, PGY-2
[2025-02-16 19:27] LABS: Reflex Lactate? Y
[2025-02-16 19:47] LABS: Lactic Acid, 3 HR 2.2 mMol/L (0.4-2.0)
--- NOTE | 2025-02-16 22:29 | ECHO_ITS ---
Transthoracic Echo Report Ht (in): 67 Wt (lb): 147 Exam Location: Echo Lab Status: Inpatient Non Categorical [employer] Teacher: Magda Gusman Indications: Procedure Performed: BP: 83 / 44 HR: 70 Technical Quality: Adequate MEASUREMENTS (Male / Female) Normal Values 2D ECHO LV Diastolic Diameter PLAX 6.6 cm 4.2 - 5.9 / 3.9 - 5.3 cm LV Systolic Diameter PLAX 6.1 cm IVS Diastolic Thickness 0.7 cm 0.6 - 1.0 / 0.6 - 0.9 cm LVPW Diastolic Thickness 0.8 cm 0.6 - 1.0 / 0.6 - 0.9 cm LV Relative Wall Thickness 0.2 LVOT Diameter 2.0 cm LA Volume Index 57.5 cm?/m? 16 - 28 cm?/m? Ascending Aorta Diameter 3.7 cm DOPPLER AV Peak Velocity 143.0 cm/s AV Peak Gradient 8.2 mmHg AV Mean Gradient 4.0 mmHg AV Velocity Time Integral 26.9 cm AI Peak Velocity 270.0 cm/s AI Peak Gradient 29.2 mmHg AI Pressure Half Time 748.0 ms MV Peak Velocity 117.0 cm/s MV Peak Gradient 5.5 mmHg MV Mean Velocity 68.3 cm/s MV Mean Gradient 2.0 mmHg MV Area PHT 4.2 cm? MR Peak Velocity 393.0 cm/s MR Peak Gradient 61.8 mmHg Mitral E Point Velocity 99.0 cm/s Mitral A Point Velocity 64.0 cm/s Mitral E to A Ratio 1.5 LV E' Lateral Velocity 9.9 cm/s Mitral E to LV E' Lateral Ratio 10.0 LV E' Septal Velocity 3.8 cm/s Mitral E to LV E' Septal Ratio 26.0 TR Peak Velocity 225.0 cm/s TR Peak Gradient 20.3 mmHg PV Peak Velocity 81.4 cm/s PV Peak Gradient 2.7 mmHg FINDINGS Left Ventricle The left ventricular cavity size is severely increased. The left ventricular wall thicknesses are normal. The left ventricular ejection fraction is severely decreased, estimated at 10-15%. There is grade II diastolic dysfunction of the left ventricle (pseudonormal filling pattern). Right Ventricle The right ventricle is moderately enlarged with severe systolic dysfunction. RVSP 20mmHg. RAP 15mmHg. Left Atrium The left atrium is severe left atrial enlargement. Right Atrium The right atrium is severe right atrial enlargement. Atrial Septum The interatrial septum appears normal with no evidence of a shunt. Aorta The aorta is normal by two-dimensional, color flow and Doppler interrogation. Mitral Valve The mitral valve annulus is moderately calcified without stensois. There is moderate mitral valve regurgitation. Aortic Valve The aortic valve is trileaflet and moderately calcified without stenosis. There is trace aortic regurgitation. Tricuspid Valve The tricuspid valve is normal by two-dimensional, color flow and Doppler interrogation. There is moderate tricuspid regurgitation. Pulmonic Valve The pulmonic valve is not well visualized. There is mild pulmonic regurgitation. Vessels The pulmonary artery appears normal. The inferior vena cava pulmonary and hepatic veins are dilated. Pericardium The pericardium is normal by two-dimensional imaging. There is no significant pericardial effusion. CONCLUSIONS Indications: HFrEF Dilated cardiomyopathy. Severe left ventricular enlargement, severely reduced LV function with an estimated EF of 10 to 15% and severe global hypokinesis. Grade 2 diastolic dysfunction. Mild to moderate right ventricular enlargement with moderate RV dysfunction. RVSP mildly elevated at 35 to 40 mmHg. Severe biatrial enlargement. IVC dilated. No pericardial effusion. Moderate aortic valve sclerosis without stenosis. Moderate MR and moderate TR. Trace AI and mild PI Moises Murphy (Electronically Signed) Final Date: 16 February 2025 13:12
[2025-02-17] VITALS (31 sets, daily range): BP systolic 78–94; BP diastolic 42–57; PULSE 75–96; RESP 12–93; TEMP 36.3–37; O2SAT 91–99
[2025-02-17] MEDS: LEVOTHYROXINE SODIUM 25 MCG TABLET PO (05:26)
[2025-02-17] MEDS: PIPER/TAZO 3.375 GM PREMIX 3.375 GM/50 ML BAG IV ×3 (05:26→21:09)
[2025-02-17] MEDS: PANTOPRAZOLE 40 MG TABLET PO (08:12)
[2025-02-17] MEDS: OSELTAMIVIR 30 MG CAPSULE PO (08:12)
[2025-02-17] MEDS: TAMSULOSIN HCL 0.4 MG CAPSULE PO (08:13)
[2025-02-17 08:27] LABS: Basophils # (Auto) 0.0 Thou/mm3 (0.0-0.2); Basophils % (Auto) 0 % (0-2.5); Eosinophils # (Auto) 0.0 Thou/mm3 (0.0-0.5); Eosinophils % (Auto) 0 % (0-10); Immature Granulocytes Auto 0.11 Thou/mm3 (0.00-0.00); Lymphocytes # (Auto) 0.3 Thou/mm3 (1.0-4.8); Lymphocytes % (Auto) 48 % (10-50); Mean Corpuscular HGB Conc 35.8 g/dl (31.0-37.0); Mean Corpuscular Hemoglobin 29.4 pg (25.0-35.0); Mean Corpuscular Volume 82 fL (80-100); Monocytes # (Auto) 0.0 Thou/mm3 (0.0-0.8); Monocytes % (Auto) 5 % (0-12); Neutrophils # (Auto) 0.2 Thou/mm3 (1.8-7.7); Neutrophils % (Auto) 29 % (37-80); Nucleated Red Blood Cell # 0.00 Thou/mm3 (0.00-0.00); Nucleated Red Blood Cell % 0 /100 WBC (0); RDW Standard Deviation 44.6 fL (35.1-43.9); Red Blood Count 2.14 Miln/mm3 (4.50-5.90)
[2025-02-17 08:31] LABS: White Blood Count 0.6 Thou/mm3 (3.8-10.6)
[2025-02-17 08:33] LABS: Hematocrit 17.6 % (41.0-53.0); Hemoglobin 6.3 g/dL (13.5-16.0); Platelet Count 12 Thou/mm3 (140-440)
[2025-02-17 08:48] LABS: Anion Gap 10 (7-16); BUN/Creatinine Ratio 27 Ratio (12-20); Blood Urea Nitrogen 60 mg/dL (9-23); Calcium 8.4 mg/dL (8.3-10.6); Carbon Dioxide 23.4 mMol/L (20.0-31.0); Chloride 104 mMol/L (98-107); Creatinine (Component) 2.2 mg/dL (0.6-1.3); Estimated Creatinine Clearance 22.1 mL/min (>60); Glucose 123 mg/dL (74-106); Magnesium 2.2 mg/dL (1.6-2.6); Osmolality,Calculated 291 (275-295); Potassium 4.3 mMol/L (3.4-5.1); Sodium 137 mMol/L (136-145); Vancomycin,Random 18.3 mcg/mL; eGFR 28 See Note
--- NOTE | 2025-02-17 08:49 | PC.SS ---
Update: Patient receiving IV antibiotics. Flu +, blood cultures are pending. Patient is an ICU downgrade.
[2025-02-17 09:11] LABS: Slide Review Platelets confirmed
[2025-02-17] MEDS: MIDODRINE 5 MG TABLET 10 MG PO ×3 (10:15→21:08)
--- NOTE | 2025-02-17 11:04 | ESPR_ITS ---
<Statement entered by Alla Lopez MD - 02/26/25 07:47> I reviewed above note and agree with findings and plans. I have also personally examined the patient with medicine team and went over assessment and plan with medical team including international logistics manager and resident physician. Documentation for date of: 02/17/25 Subjective Subjective Interval history: Patient seen and examined at bedside. Has no current complaints, alert and oriented x3 Hemoglobin 6.3 today, WBC 0.6, platelet 12-ordered 2 unit irradiated PRBC and platelet Worsening of renal function noted creatinine 2.2, GFR 28. Patient's MAP around 65 this morning, lactate 1.8. In the afternoon patient's MAP noted to be in high 50s, lactate obtained 1.6, patient asymptomatic seems to be perfusing well. Patient is pending blood transfusion, will receive blood transfusion today in the evening. Will keep MAP goal of 55, will repeat lactate if MAP below 55. Case discussed with ICU attending. Will monitor closely. Exam Vital Signs Temp Pulse Resp BP Pulse Ox O2 Del Method O2 Flow Rate 97.5 F 87 18 82/46 L 96 Room Air 02/17/25 08:00 02/17/25 10:15 02/17/25 08:00 02/17/25 10:15 02/17/25 08:00 02/17/25 08:00 02/15/25 23:04 FiO2 02/16/25 06:37 Narrative Exam Physical Exam General: Awake and in no acute distress. Elderly male, conversational and chronically ill appearing. HEENT: Normocephalic, atraumatic, mucous membranes moist. Heart: Regular rate and rhythm, S3 heart sound present, systolic murmur heard loudest in the left lower sternal border. Sternotomy scars present, PROFESSIONAL HEALTHCARE REPRESENTATIVE-D on the right side. Lungs: Clear to auscultation with no wheezing or crackles. Abdomen: Soft, nondistended, nontender, positive bowel sounds. ?No guarding or rebound tenderness. Neurologic: Alert and oriented x3, no gross neurological deficit, and patient able to move all 4 extremities. Extremities: No edema. No mottling, no signs of poor perfusion. Skin: No rash or ecchymoses. Objective Labs 02/17/25 07:11 02/17/25 07:11 Labs: Laboratory Results - last 24 hr 02/15/25 02/16/25 02/16/25 23:15 15:10 16:15 WBC RBC Hgb Hct MCV MCH MCHC RDW Std Deviation Plt Count Neut % (Auto) Lymph % (Auto) Dane % (Auto) Eos % (Auto) Baso % (Auto) Neut # (Auto) Lymph # (Auto) Dane # (Auto) Eos # (Auto) Baso # (Auto) Immature Gran # (Auto) Absolute Nucleated RBC Immature Gran % Nucleated RBC % VBG pH 7.47 VBG pCO2 33 L VBG pO2 31 VBG O2 Sat (Mini) 63 L VBG Base Excess 1 Sodium Potassium Chloride Carbon Dioxide Anion Gap BUN Creatinine Estim Creat Clear Calc eGFR BUN/Creatinine Ratio Glucose Calculated Osmolality Lactic Acid 2.2 H Calcium Magnesium Ur Collection Type Catheter Urine Color Lt-Yellow Urine Clarity Turbid A Urine pH 5.0 Ur Specific [place] 1.013 Urine Protein Negative Urine Glucose (UA) Negative Urine Ketones Negative Urine Blood 3+ A Urine Nitrite Negative Urine Bilirubin Negative Urine Urobilinogen (Auto) Negative Ur Leukocyte Esterase Negative Urine RBC 139 H Urine WBC 4 Ur Squamous Epith Cells 0 Urine Bacteria Rare Random Vancomycin Coccidioides IgM Ab Negative [facility] [place] Crossmatch Blood Bank Wristband ID 02/16/25 02/17/25 02/17/25 19:38 07:11 10:37 WBC 0.6 L* RBC 2.14 L Hgb 6.3 L* Hct 17.6 L* MCV 82 MCH 29.4 MCHC 35.8 RDW Std Deviation 44.6 H Plt Count 12 L* D Neut % (Auto) 29 L Lymph % (Auto) 48 Dane % (Auto) 5 Eos % (Auto) 0 Baso % (Auto) 0 Neut # (Auto) 0.2 L Lymph # (Auto) 0.3 L Dane # (Auto) 0.0 Eos # (Auto) 0.0 Baso # (Auto) 0.0 Immature Gran # (Auto) 0.11 H Absolute Nucleated RBC 0.00 Immature Gran % 19 H Nucleated RBC % 0 VBG pH VBG pCO2 VBG pO2 VBG O2 Sat (Mini) VBG Base Excess Sodium 137 Potassium 4.3 Chloride 104 Carbon Dioxide 23.4 Anion Gap 10 BUN 60 H Creatinine 2.2 H Estim Creat Clear Calc 22.1 L eGFR 28 L BUN/Creatinine Ratio 27 H Glucose 123 H D Calculated Osmolality 291 Lactic Acid 2.2 H Calcium 8.4 Magnesium 2.2 Ur Collection Type Urine Color Urine Clarity Urine pH Ur Specific [place] Urine Protein Urine Glucose (UA) Urine Ketones Urine Blood Urine Nitrite Urine Bilirubin Urine Urobilinogen (Auto) Ur Leukocyte Esterase Urine RBC Urine WBC Ur Squamous Epith Cells Urine Bacteria Random Vancomycin 18.3 Coccidioides IgM Ab Misc Test Result Platelets confirmed Crossmatch See Detail Blood Bank Wristband ID Yes ABG Interpretation ABG results: 02/15/25 02/16/25 02/16/25 21:03 04:15 16:15 ABG pH 7.45 7.38 ABG pCO2 33 38 ABG pO2 66 L 90 D ABG HCO3 23 22 ABG O2 Saturation 95 98 ABG Base Excess -1 -3 VBG pH 7.47 VBG pCO2 33 L VBG pO2 31 VBG Base Excess 1 Quality Measures Quality Measures sepsis Current suspected stage: ruled out Possible source: pulmonary Blood cultures ordered: yes Antibiotic ordered: Yes Advance care planning discussed with:: patient Assessment & Plan Assessment Current Active Medications: Generic Name Dose Route Start Last Admin Trade Name Freq PRN Reason Stop Dose Admin Acetaminophen 650 mg 02/15/25 22:26 Acetaminophen 325 Mg Tablet PO 03/17/25 22:25 Q4HR PRN PAIN SCALE 1-3 (mild Acetaminophen 650 mg 02/15/25 22:26 Acetaminophen Supp 650 Mg Supp RI 03/17/25 22:25 Q4HR PRN PAIN SCALE 1-3 (mild Al Hydrox/Mg Hydrox/Simethicone 30 ml 02/15/25 22:26 Mg Hyd/Al Hyd/Samantha (Maalox Reg) Susp 30 Ml Udc PO 03/17/25 22:25 Q4HR PRN Heartburn or Upset Stomach Piperacillin/Tazobactam/Dextrose 3.375 gm in 50 mls @ 12.5 mls/hr 02/16/25 14:00 02/17/25 05:26 Zosyn IV 02/22/25 22:44 12.5 mls/hr Q8HR PRASANTH Administration Vancomycin/Sodium Chloride 200 mls @ 120 mls/hr 02/17/25 21:00 Vancomycin/Ns 1 Gm Ivpb IV 02/17/25 22:39 X1 ONE Levothyroxine Sodium 25 mcg 02/17/25 06:00 02/17/25 05:26 Levothyroxine Sodium 25 Mcg Tablet PO 03/19/25 05:59 25 mcg ACBR PRASANTH Administration Magnesium Hydroxide 30 ml 02/15/25 22:26 02/16/25 13:44 Milk Of Magnesia Susp 30 Ml Udc PO 03/17/25 22:25 30 ml QDAY PRN Administration CONSTIPATION Midodrine 10 mg 02/17/25 10:05 02/17/25 10:15 Midodrine 5 Mg Tablet PO 03/19/25 10:04 10 mg TID PRASANTH Administration Nitroglycerin 0.4 mg 02/15/25 22:26 Nitroglycerin 0.4 Mg Subl Btl #25 SL Q5MIN PRN CHEST PAIN Oseltamivir Phosphate 30 mg 02/16/25 09:00 02/17/25 08:12 Oseltamivir 30 Mg Capsule PO 02/23/25 08:59 30 mg DAILY PRASANTH Administration Pantoprazole Sodium 40 mg 02/16/25 09:00 02/17/25 08:12 Pantoprazole 40 Mg Tablet PO 03/18/25 08:59 40 mg DAILY PRASANTH Administration Pharmacy Consult 1 each 02/16/25 07:56 Vancomycin Pharmacy To Dose 1 Each Each IV 03/18/25 07:55 QDAY PRN CONSULT Tamsulosin HCl 0.4 mg 02/16/25 09:00 02/17/25 08:13 Tamsulosin Hcl 0.4 Mg Capsule PO 03/18/25 08:59 0.4 mg DAILY PRASANTH Administration Plan 89-year-old male with past medical history of HFrEF (now 10-15%) s/p PROFESSIONAL HEALTHCARE REPRESENTATIVE-D (last replaced 2023), ischemic cardiomyopathy, CAD s/p CABG x4, MRSA bacteremia, endocarditis, hypertension, GERD, BPH, CKD stage IV, hypothyroidism, and 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 Patient was weaned off norepinephrine infusion and downgraded to Telemetry on 02/16/2025. #Acute decompensated chronic systolic and diastolic congestive heart failure exacerbation [EF 10-15%] #S/p PROFESSIONAL HEALTHCARE REPRESENTATIVE?D #History of infective endocarditis secondary to PROFESSIONAL HEALTHCARE REPRESENTATIVE-D #Cardiogenic shock secondary to CHF exacerbation BNP > 3000 on admission. Chest x-ray showed bilateral pulmonary edema and increased vascular markings. Patient is NYHA class D stage III. No need to maintain MAP greater than 65 as patient has adequate perfusion. Cap refill less than 2 seconds, extremities warm and dry and no signs of mottling. 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 Severe left ventricular enlargement, severely reduced LV function with estimated EF 10-15% and severe global hypokinesis. Mild to moderate right ventricular enlargement with moderate RV dysfunction. RVSP 35 to 40 mmHg. Severe biatrial enlargement. IVC dilated. Moderate AV sclerosis without stenosis and moderate MR and TR. 02/16 2 pm: Discontinued Levophed infusion. Patient was downgraded to Telemetry. -Cardiology consulted, appreciate recommendations -Daily weights -2G sodium restricted diet -1500 cc fluid restriction - Hold diuresis for now, patient euvolemic and blood pressure soft. #Influenza A pneumonia #Septic shock - resolved #Neutropenic fever?resolved On admission ANC 0.23, T 102.7F on 02/15 Patient came in and found to have 2 or more SIRS criteria and was evaluated for sepsis. Patient had fever and endorsed productive cough and chills prior to hospitalization -Continue Tamiflu 30mg po daily [Renally dosed] -Continue Zosyn, vancomycin until culture -Follow-up on culture results, no growth for last 24 hours #History of #Normocytic anemia #Thrombocytopenia #Leukopenia with neutropenia Secondary to myelodysplastic syndrome. Patient's on chemotherapy with azacitidine and chronic PRBC infusions for symptomatic anemia. Last transfusion 3 days ago and chemotherapy 10 days ago. Hb 7.1, WBC 0.7 [ANC 0.23], PLT 21 02/15 filgrastim x1 given. 02/16 filgrastim x1 given. 02/17 filgrastim x 1 given -Ordered 2 units leukoreduced PRBC and 2 units platelets -Neutropenic precautions -Dr. Corona contacted as needed for recommendations -If patient has any further episodes of fever or deteriorates, initiate emergent transfer to [facility] as there is a high chance of patient developing a blast crisis due to his MDS and ANC of 0.2. Per Dr. Corona she has admitting privileges at [facility] and will facilitate transfer if necessary. #History of CAD s/p CABG x 4 -Aspirin and antiplatelets on hold due to severe anemia and thrombocytopenia secondary to MDS requiring chronic transfusions and currently on chemotherapy with azacitidine #History of CKD stage IIIb Baseline CR between 1.6/1.9 -Renally dose medication, avoid nephrotoxic agents -Continue to monitor creatinine on renal panel especially when IV diuresis resumed #History of hypothyroidism TSH 1.78 -Continue medication levothyroxine 25 mcg p.o. daily Health maintenance: Dispo: Pending improvement, pending blood transfusion Diet: Cardiac, 1500 cc fluid restrict DVT ppx: SCDs GI ppx: Protonix 40mg qD IV lines: 2 pIV Central line: Right subclavian port-a-cath Arterial line: No Douglass: No Code status: FULL CODE Patient plan of care was discussed with the attending physician, Dr. Lopez. Heather Sharpe PGY-1
--- NOTE | 2025-02-17 11:13 | PD.RESPRO ---
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 [facility], shortness of breath and low blood pressure. Patient stated increased productive cough with phlegm shortly after eating with poor oral intake. Worsening shortness of breath. Patient at baseline sleeps upright. Denies lower pedal edema. Noted to have a low blood pressure at home. Yesterday developed pyrexia of 102.6 Fahrenheit. This prompted patient to seek medical care. Recent follow-up with cardiology. Most recent medication that has been added, spironolactone 25 mg daily. Patient is unsure how long ago this was added. Bumex is taken 1 mg as needed secondary to open low blood pressure. Patient admitted directly to the ICU Cardiology consulted given severe congestive heart failure ejection fraction of 10 to 15% (02/15/2025) 02/17/2025: Patient examined at bedside. No chief complains from cardiac stand point. Rosalio continues to feel fatigued at baseline. Overnight single episode of pyrexia noted 100.9 F. WBC continue to trend down, consider reaching out to Dr. Corona as rosalio may benefit from additional dose of Filgrastim. RBC 2 units ordered and 1 unit of Plt. Bumex 1 mg IV after each bag of PRBcs-->total of Bumex 1 mg IVX 2. Exam Vital Signs Temp Pulse Resp BP Pulse Ox O2 Del Method O2 Flow Rate 97.5 F 87 18 82/46 L 96 Room Air 02/17/25 08:00 02/17/25 10:15 02/17/25 08:00 02/17/25 10:15 02/17/25 08:00 02/17/25 08:00 02/15/25 23:04 FiO2 02/16/25 06:37 Narrative Exam General Appearance: Alert & Oriented X3, thin male with temporal wasting, who is lying in bed in no acute distress, on room air at spO2 97% HEENT: Skull symmetrical and atraumatic. Conjunctivae pale pink and moist. Pupils equal, round, reactive to light and accommodation (PERRL). External ear without lesion or discharge. Cardio: Normal Rate and Rhythm with S1 and S2 heart sounds. No bruits on carotid auscultation. Peripheral edema, 1+ Lungs: Symmetric with good expansion. Chest and back non-tender. Decreased vesicular breath sounds. Abdomen: Non-tender, Non-distended, Normal Reactive Bowel Sounds Neuro: Alert, cooperative, oriented to person, place, and time. Speech clear. CN grossly intact. Upper motor strength 5/5 and Lower motor strength 4/5. Sensation intact. Objective Labs 02/18/25 04:44 02/18/25 04:44 Labs: Laboratory Results - last 24 hr 02/15/25 02/16/25 02/16/25 23:15 15:10 16:15 WBC RBC Hgb Hct MCV MCH MCHC RDW Std Deviation Plt Count Neut % (Auto) Lymph % (Auto) [place] % (Auto) Eos % (Auto) Baso % (Auto) Neut # (Auto) Lymph # (Auto) [place] # (Auto) Eos # (Auto) Baso # (Auto) Immature Gran # (Auto) Absolute Nucleated RBC Immature Gran % Nucleated RBC % VBG pH 7.47 VBG pCO2 33 L VBG pO2 31 VBG O2 Sat (Mini) 63 L VBG Base Excess 1 Sodium Potassium Chloride Carbon Dioxide Anion Gap BUN Creatinine Estim Creat Clear Calc eGFR BUN/Creatinine Ratio Glucose Calculated Osmolality Lactic Acid 2.2 H Calcium Magnesium Ur Collection Type Catheter Urine Color Lt-Yellow Urine Clarity Turbid A Urine pH 5.0 Ur Specific Carney 1.013 Urine Protein Negative Urine Glucose (UA) Negative Urine Ketones Negative Urine Blood 3+ A Urine Nitrite Negative Urine Bilirubin Negative Urine Urobilinogen (Auto) Negative Ur Leukocyte Esterase Negative Urine RBC 139 H Urine WBC 4 Ur Squamous Epith Cells 0 Urine Bacteria Rare Random Vancomycin Coccidioides IgM Ab Negative Misc Test Result Crossmatch Blood Bank Wristband ID 02/16/25 02/17/25 02/17/25 19:38 07:11 10:37 WBC 0.6 L* RBC 2.14 L Hgb 6.3 L* Hct 17.6 L* MCV 82 MCH 29.4 MCHC 35.8 RDW Std Deviation 44.6 H Plt Count 12 L* D Neut % (Auto) 29 L Lymph % (Auto) 48 [place] % (Auto) 5 Eos % (Auto) 0 Baso % (Auto) 0 Neut # (Auto) 0.2 L Lymph # (Auto) 0.3 L [place] # (Auto) 0.0 Eos # (Auto) 0.0 Baso # (Auto) 0.0 Immature Gran # (Auto) 0.11 H Absolute Nucleated RBC 0.00 Immature Gran % 19 H Nucleated RBC % 0 VBG pH VBG pCO2 VBG pO2 VBG O2 Sat (Mini) VBG Base Excess Sodium 137 Potassium 4.3 Chloride 104 Carbon Dioxide 23.4 Anion Gap 10 BUN 60 H Creatinine 2.2 H Estim Creat Clear Calc 22.1 L eGFR 28 L BUN/Creatinine Ratio 27 H Glucose 123 H D Calculated Osmolality 291 Lactic Acid 2.2 H Calcium 8.4 Magnesium 2.2 Ur Collection Type Urine Color Urine Clarity Urine pH Ur Specific Carney Urine Protein Urine Glucose (UA) Urine Ketones Urine Blood Urine Nitrite Urine Bilirubin Urine Urobilinogen (Auto) Ur Leukocyte Esterase Urine RBC Urine WBC Ur Squamous Epith Cells Urine Bacteria Random Vancomycin 18.3 Coccidioides IgM Ab Misc Test Result Platelets confirmed Crossmatch See Detail Blood Bank Wristband ID Yes ABG Interpretation ABG results: 02/15/25 02/16/25 02/16/25 21:03 04:15 16:15 ABG pH 7.45 7.38 ABG pCO2 33 38 ABG pO2 66 L 90 D ABG HCO3 23 22 ABG O2 Saturation 95 98 ABG Base Excess -1 -3 VBG pH 7.47 VBG pCO2 33 L VBG pO2 31 VBG Base Excess 1 Quality Measures Quality Measures sepsis Current suspected stage: sepsis Possible source: pulmonary Blood cultures ordered: yes Antibiotic ordered: Yes Advance care planning discussed with:: patient Assessment & Plan Assessment Current Active Medications: Generic Name Dose Route Start Last Admin Trade Name Freq PRN Reason Stop Dose Admin Acetaminophen 650 mg 02/15/25 22:26 Acetaminophen 325 Mg Tablet PO 03/17/25 22:25 Q4HR PRN PAIN SCALE 1-3 (mild Acetaminophen 650 mg 02/15/25 22:26 Acetaminophen Supp 650 Mg Supp MA 03/17/25 22:25 Q4HR PRN PAIN SCALE 1-3 (mild Al Hydrox/Mg Hydrox/Simethicone 30 ml 02/15/25 22:26 Mg Hyd/Al Hyd/Samantha (Maalox Reg) Susp 30 Ml Udc PO 03/17/25 22:25 Q4HR PRN Heartburn or Upset Stomach Piperacillin/Tazobactam/Dextrose 3.375 gm in 50 mls @ 12.5 mls/hr 02/16/25 14:00 02/17/25 05:26 Zosyn IV 02/22/25 22:44 12.5 mls/hr Q8HR PRASANTH Administration Vancomycin/Sodium Chloride 200 mls @ 120 mls/hr 02/17/25 21:00 Vancomycin/Ns 1 Gm Ivpb IV 02/17/25 22:39 X1 ONE Levothyroxine Sodium 25 mcg 02/17/25 06:00 02/17/25 05:26 Levothyroxine Sodium 25 Mcg Tablet PO 03/19/25 05:59 25 mcg ACBR PRASANTH Administration Magnesium Hydroxide 30 ml 02/15/25 22:26 02/16/25 13:44 Milk Of Magnesia Susp 30 Ml Udc PO 03/17/25 22:25 30 ml QDAY PRN Administration CONSTIPATION Midodrine 10 mg 02/17/25 10:05 02/17/25 10:15 Midodrine 5 Mg Tablet PO 03/19/25 10:04 10 mg TID PRASANTH Administration Nitroglycerin 0.4 mg 02/15/25 22:26 Nitroglycerin 0.4 Mg Subl Btl #25 SL Q5MIN PRN CHEST PAIN Oseltamivir Phosphate 30 mg 02/16/25 09:00 02/17/25 08:12 Oseltamivir 30 Mg Capsule PO 02/23/25 08:59 30 mg DAILY PRASANTH Administration Pantoprazole Sodium 40 mg 02/16/25 09:00 02/17/25 08:12 Pantoprazole 40 Mg Tablet PO 03/18/25 08:59 40 mg DAILY PRASANTH Administration Pharmacy Consult 1 each 02/16/25 07:56 Vancomycin Pharmacy To Dose 1 Each Each IV 03/18/25 07:55 QDAY PRN CONSULT Tamsulosin HCl 0.4 mg 02/16/25 09:00 02/17/25 08:13 Tamsulosin Hcl 0.4 Mg Capsule PO 03/18/25 08:59 0.4 mg DAILY PRASANTH Administration Plan Patient is an 88-year-old male with a past medical history of 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 Patien was admitted overnight directly into the ICU for Shock, likely cardiogenic. Cardiology consulted given worsening EF, now 10 to 15% (02/16/2025). #Acute Hypoxic Respiratory Failure, resolved #Acute on Chronic Congestive Heart Failure #CHF HFrEF 10% to 15%. #S/p TRAFFIC INVESTIGATOR-D #Severely reduced LV function w/ global hypokinesis & Mild to Moderate Right Venticular Enlargement #PAH, mildly elevated 35-40 Cardiomypoathy patient has a past medical ischemic cardiomyopathy with TRAFFIC INVESTIGATOR-D and severely reduced ejection fraction despite GDMT as outpatient. CHF exacerbation likely triggered by influenza complicated by history or myelodysplasitic syndrome with resolved neurtropenic fever. Continue to hold other GDMT and continue Lasix. Re-evaluate diuretics, consider restarting Bumex and Midodrine it Blood pressure continues to be <65 Echo (02/16/2025): Dilated cardio-myopathy.Severe left ventricular enlargement, severely reduced LV function with an estimated EF of 10 to 15% and severe global hypokinesis. Grade 2 diastolic dysfunction. Mild to moderate right ventricular enlargement with moderate RV dysfunction. RVSP mildly elevated at 35 to 40 mmHg.Severe biatrial enlargement. IVC dilated. No pericardial effusion.Moderate aortic valve sclerosis without stenosis. Moderate MR and moderate TR. Trace AI and mild PI. BNP >3280 TSH (02/16/2025): 1.78 and Free T4 (02/15/2025) 1.10 Lipid Panel: None obtained. 02/17/2025: Ins and Outs [id number]/-[id number] 66.7 kg NYHA Class: IV Plan: -Bumex 1 mg PO every other day, on 02/18/2025, as bumex is patient's home dose and note renally cleared. -->Bumex 1 mg IV push after each transfusion of PRBCs -Midodrine 10 mg TID, PRN -Monitor BP >65 goal -Continue to hold Carvedilol and Spironolactone 25 mg qday -Repeat BNP and document dry weight -K>4 and Mg >2 -SpO <90%, support PRN -Daily Weights, Strict Ins and Outs, Fluid Striction (1200), Sodium Restriction 2 grams per day #History of CABG #CAD s/p Stents #History of Endocarditis Patient has a past medical history of CABG and and stents, likely hyperlipidemia. Given Pancytopenia, currently holding Aspirin. Troponin 0.039 Plan -consider lipid panel -no statins listed as home medication -Hold Aspirin -Continue to monitor for signs of chest pain #Neutropenic Fever #Leukopenia w/ neutropenia #Pneumonia, Influenza Positive #Myelodysplastic disease #Pancytopenia Patient has a past medical history of myelodysplastic disease on chemotherapy likely Vidaz, per Dr. Corona note on 01/20/2025. Diagnosed at [facility] on 02/06/2024. 02/17/2025: patient would likely benefit from Filgrastim, consider reach out to Dr. Corona once more Cocci IgM negative, Legionella Pending, Beta (1,3) D Glucan, Blood Culture 24 hrs and Urine Culture Penidng, and MRSA screen pending Plan -Transfuse products -Zosyn 02/16/2025 & Tamiflu -If condition worsens, please initiate emergent transfer to [facility] as there is a high change of patient developing a blast crisis due MDS and ANC of 0.2. *Dr. Corona has admitting privilages at [facility], contact. -Filgrastim X 1 (02/17/25) -Chemotherapy, Vidaz (outpatinet) -Dexamethasone ? likely only given briefly, consider reaching out to Dr. Corona #ESTELLA on CKD III Patient has a past medical history of chronic kidney disease likely stage III who follows Dr. Burks. ESTELLA on CKD likely secondary to poor oral intake per history taken. BUN/creatinine ratio greater than 20. Monitor for intrinsic renal failure less likely as patient has been having good urine output versus worsening CKD UA noted elevated RBCs 139 and urine blood +3 Plan - Strict ins and outs - Renally dose medication - Avoid nephrotoxins - Consider renal consult if condition worsens, Dr. Leonard. - Consider urine electrolytes if no improvement #Hypothyroidism Past medical history of hypothyroidism levothyroxine 25 mcg. TSH (02/15/2025) 1.78 and free T4 (02/15/2025 1.10 Plan - Resume home medication levothyroxine 25 mcg #BNP Tamsulosin 0.4 consider PSA levels given positive RBCs in UA #History of GERD home medication may be protonix #Cardiogenic shock, secondary to CHF exacerbation resolved Patient off pressors Health Maintenance: Disp: Pt is currently admitted to floors for further management of cardiogenic shock, improving, cardiology consulted given CHF, HFrEF 10-15%. FEN: Cardiac Diet, fluid restricted 1500 DVT:Compression Device Code: DNR - The patient's plan was discussed with attending Dr. Jeffrey Mcmahon MD PGY1 Internal Medicine Attending Provider Attestation/Addendum I have personally seen and examined the patient separately on the above date of service and discussed the plan of care with the resident. I reviewed the resident Dr. Dinora Mcmahon consultation progress note and agree with the resident findings and plan in the note above and have also edited the documentation to reflect my findings and plan. Patient has severe anemia secondary to the MDS and he has weekly or biweekly transfusions as outpatient with oncology. Now he presented with severe pancytopenia. Primary team planning to transfuse the patient with 2 units of PRBC today. Recommend to give Bumex 1 mg IV after each infusion to avoid any kind of fluid overload given the patient's severe systolic congestive heart failure with an EF of around 10 to 15%. Patient's creatinine is at 2.2 and BUN is 62. Patient has been diuresed with Lasix 40 mg IV twice daily in the ICU prior to transfer to the regular nursing floor. Recommend to restart the patient's Bumex and place the 2 mg once daily for now. Unfortunately patient is hypotensive is mostly secondary to the anemia and patient will be receiving transfusions today. Recommend to start midodrine 10 mg 3 times daily and continue diuresis with the patient. Patient has a high risk of developing cardiorenal syndrome given his EF and is very fluid sensitive. Strict input output Daily weights and 2 g sodium diet. Echo (02/16/2025): Dilated cardio-myopathy.Severe left ventricular enlargement, severely reduced LV function with an estimated EF of 10 to 15% and severe global hypokinesis. Grade 2 diastolic dysfunction. Mild to moderate right ventricular enlargement with moderate RV dysfunction. RVSP mildly elevated at 35 to 40 mmHg.Severe biatrial enlargement. IVC dilated. No pericardial effusion.Moderate aortic valve sclerosis without stenosis. Moderate MR and moderate TR. Trace AI and mild PI. Moises Murphy M.D. Interventional Cardiology
[2025-02-17 11:25] LABS: Lactate (Lactic Acid) 1.8 mMol/L (0.4-2.0)
[2025-02-17 12:38] LABS: Cocci Serology, IgG Negative (Negative)
--- NOTE | 2025-02-17 14:56 | PC.SS ---
Rounding Note: Patient experiencing low blood pressure, possible upgrade to ICU.
[2025-02-17 15:30] LABS: Lactate (Lactic Acid) 1.6 mMol/L (0.4-2.0)
[2025-02-17] MEDS: FILGRASTIM INJ (ZARXIO) 480 MCG/0.8 ML SYRINGE SC (15:30)
[2025-02-17 16:57] LABS: Base Excess, Venous 0 (-3-3); O2 Saturation, Venous 80 % (96-97); PCO2, Venous 35 mmHg (36-56); PO2, Venous 44 mmHg (15-58); pH, Venous 7.44 (7.33-7.66)
[2025-02-17] MEDS: VANCOMYCIN/NS 1 GM IVPB 200 ML IV (20:43)
[2025-02-18] VITALS (13 sets, daily range): BP systolic 93–119; BP diastolic 54–66; PULSE 88–104; RESP 19–94; TEMP 36.4–36.9; O2SAT 92–96; BMI 23.0; BMI 23.1
[2025-02-18 02:38] LABS: Hematocrit 24.0 % (41.0-53.0)
[2025-02-18 02:59] LABS: Hemoglobin 8.6 g/dL (13.5-16.0); Platelet Count 33 Thou/mm3 (140-440)
[2025-02-18 04:01] LABS: Slide Review Platelets confirmed
[2025-02-18] MEDS: LEVOTHYROXINE SODIUM 25 MCG TABLET PO (05:22)
[2025-02-18] MEDS: MIDODRINE 5 MG TABLET 10 MG PO ×3 (05:22→21:09)
[2025-02-18] MEDS: PIPER/TAZO 3.375 GM PREMIX 3.375 GM/50 ML BAG IV ×3 (05:23→21:10)
[2025-02-18 05:36] LABS: Basophils # (Auto) 0.0 Thou/mm3 (0.0-0.2); Basophils % (Auto) 1 % (0-2.5); Eosinophils # (Auto) 0.0 Thou/mm3 (0.0-0.5); Eosinophils % (Auto) 1 % (0-10); Hematocrit 25.9 % (41.0-53.0); Hemoglobin 9.1 g/dL (13.5-16.0); Immature Granulocytes Auto 0.10 Thou/mm3 (0.00-0.00); Lymphocytes # (Auto) 0.3 Thou/mm3 (1.0-4.8); Lymphocytes % (Auto) 37 % (10-50); Mean Corpuscular HGB Conc 35.1 g/dl (31.0-37.0); Mean Corpuscular Hemoglobin 28.3 pg (25.0-35.0); Mean Corpuscular Volume 80 fL (80-100); Monocytes # (Auto) 0.1 Thou/mm3 (0.0-0.8); Monocytes % (Auto) 7 % (0-12); Neutrophils # (Auto) 0.3 Thou/mm3 (1.8-7.7); Neutrophils % (Auto) 42 % (37-80); Nucleated Red Blood Cell # 0.00 Thou/mm3 (0.00-0.00); Nucleated Red Blood Cell % 0 /100 WBC (0); RDW Standard Deviation 48.7 fL (35.1-43.9); Red Blood Count 3.22 Miln/mm3 (4.50-5.90)
[2025-02-18 05:39] LABS: Platelet Count 36 Thou/mm3 (140-440)
[2025-02-18 05:40] LABS: White Blood Count 0.8 Thou/mm3 (3.8-10.6)
[2025-02-18 05:49] LABS: Alanine Aminotransferase 17 U/L (10-49); Albumin, Serum 3.2 gm/dL (3.4-4.8); Albumin/Globulin Ratio 0.8 (1.2-2.2); Alkaline Phosphatase 56 U/L (46-116); Anion Gap 11 (7-16); Aspartate Amino Transferase 14 U/L (0-34); BUN/Creatinine Ratio 29 Ratio (12-20); Bilirubin,Total 1.0 mg/dL (0.3-1.2); Blood Urea Nitrogen 73 mg/dL (9-23); Calcium 8.7 mg/dL (8.3-10.6); Calcium (Corrected) 9.3 mg/dL (8.5-10.1); Carbon Dioxide 24.2 mMol/L (20.0-31.0); Chloride 102 mMol/L (98-107); Creatinine (Component) 2.5 mg/dL (0.6-1.3); Estimated Creatinine Clearance 19.5 mL/min (>60); Globulin 3.9 gm/dL (2.3-3.5); Glucose 127 mg/dL (74-106); Magnesium 2.2 mg/dL (1.6-2.6); Osmolality,Calculated 297 (275-295); Potassium 4.3 mMol/L (3.4-5.1); Sodium 137 mMol/L (136-145); Total Protein 7.1 gm/dL (5.7-8.2); Vancomycin,Random 30.7 mcg/mL; eGFR 24 See Note
--- NOTE | 2025-02-18 09:11 | PD.RESCONSUL ---
HPI Data of Consult Consult date: 02/18/25 Requesting Physician: Celio Mace DO Admitting Provider: Thiago Ramesh MD Attending Provider: Celio Mace DO Primary Care Provider: Ray Gillette MD Consult Narrative Reason for consult: ESTELLA History of present illness: Ms. 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 Patient was brought to emergency room from [facility] due to complaint of dyspnea low-grade fever and cough. Reported cough being productive of sputum. Also associated with shortness of breath at rest. Initial imaging showed worsening CHF and pneumonia. Patient was admitted to the medical floor for management of neutropenic fever and sepsis secondary to pneumonia. at the bedside, reported that patient takes as needed Bumex prescribed by cylinder honer, she gave him 1 pill of Bumex 1 day ago and patient did not make any urine for the next whole day, which made his shortness of breath worse. Nephrology was consulted for acute on chronic CKD. In the ER, patient had initial vitals BP 89/45, pulse 85/min, respiratory 22/min, saturating 92% on room air, Tmax 102.9, initial CBC showed pancytopenia with WBC 0.8, absolute neutropenia 200, anemia and thrombocytopenia.Patient was started on IV antibiotics vancomycin and Zosyn, patient initially required pressor support but was later started on midodrine 10 mg p.o. 3 times daily, found to have flu positive, started on oseltamivir 30 mg/day, and given filgrastim 480 mcg. cc:: cc: Celio Maec DO Review of Systems Review of Systems Systems Reviewed: All systems reviewed, normal except as documented Past Medical History Past Medical History NEUROLOGIC: Negative Neurological Disorders, Cerebrovascular Accident, Transient Ischemic Attacks (TIA), Dementia, Alzheimer's Disease, Parkinson's Disease, Brain Tumor, Meningitis, Seizures, Epilepsy, Multiple Sclerosis, Cerebral Palsy, Amyotrophic Lateral Sclerosis (ALS/Sharlene Gehrig's), Guillain-Dunseith Syndrome, Spina Bifida, Paralysis, Peripheral Neuropathy, Stewart's Palsy, Subdural Hematoma, Migraine, Head Trauma, Spinal Cord Injury or Traumatic Brain Injury CARDIAC: Positive Cardiac Disorders, Myocardial Infarction, Cardiac Arrhythmia, Coronary Artery Disease, Hypercholesterolemia, Congestive Heart Failure, Valvular Heart Disease and Hypertension; Negative Atrial Fibrillation, Angina, Heart Murmur, Atherosclerotic Heart Disease, Peripheral Vascular Disease, Aneurysm, Congenital Heart Disease, Rheumatic Fever, Cardiomyopathy, Edema, Pericarditis, Cellulitis, Deep Vein Thrombosis, Hypotension or Varicose Veins RESPIRATORY: Positive Pneumonia and Sleep Apnea; Negative Chronic Obstructive Pulmonary Disease (COPD), Asthma, Bronchitis, Emphysema, Pulmonary Fibrosis, Cystic Fibrosis, Tuberculosis, Pulmonary Embolism or Pulmonary Edema GASTROINTESTINAL: Positive Gastrointestinal Disorders, Gall Bladder Disease and Gastroesophageal Reflux Disease; Negative Hepatitis, Cirrhosis, Pancreatitis, Celiac Disease, Gastrointestinal Bleed, Esophageal Varices, Joe's Esophagus, Colitis, Ulcerative Colitis, Diverticulitis, Diverticulosis, Ulcer, Colorectal Cancer, Irritable Bowel, Crohn's Disease, Obstructive Bowel, Hiatal Hernia, Hemorrhoids or Obesity GENITOURINARY: Positive Genitourinary Disorders, Renal Disease and Benign Prostatic Hyperplasia; Negative Kidney Stones, Polycystic Kidney Disease, Neurogenic Bladder, Inguinal Hernia, Dialysis or Prostate Cancer REPRODUCTIVE: Negative Testicular Cancer MUSCULOSKELETAL: Positive Musculoskeletal Disorders and Arthritis; Negative Muscular Dystrophy, Myasthenia Gravis, Marfan's Syndrome, Bone Cancer, Rheumatoid Arthritis, Osteoporosis, Degenerative Disk Disease, Gout, Scoliosis, Carpal Tunnel Syndrome, Fibromyalgia, Fractures, Degenerative Joint Disease, Osteomyelitis or Poliovirus ENT: Positive Cataracts; Negative Glaucoma, Blind, Retinal Detachment, Macular Degeneration, Ear Infection, Deafness, Head Trauma or Eye Prosthesis ENDOCRINE: Positive Endocrine Disorders and Hypothyroidism; Negative Diabetes Mellitus Type 1, Diabetes Mellitus Type 2, Hypoglycemia, [place]'s Syndrome, Hugo's Disease, Hyperthyroidism, Parathyroid Disease, Pituitary Disease, Systemic Lupus Erythematosus, Syndrome of Inappropriate Antidiuretic Hormone (SIADH), Adrenal Disease or Graves' Disease HEMATOLOGIC: Positive Blood Disorders (Myelodysplastic syndrome(MDS)-abnormal blood cell production in bone marrow) and Anemia; Negative Leukemia, Hemophilia, Thalassemia, Sickle Cell Disease or Clotting Problems PSYCHO/SOCIAL: Positive Anxiety; Negative Psychiatric Problems, Schizophrenia, Recreational Drug Use, Bipolar Disorder, Depression, Behavior Problems, Self-Mutilation, Attention Deficit Disorder, Attention Deficit Hyperactivity Disorder, Post Traumatic Stress Disorder or Eating Disorder OTHER HISTORY: Positive Hospitalization, Falls, Blood Transfusions, Chicken Pox, Measles and Cancer (melanoma in back); Negative Autoimmune Disease, Down Syndrome, Autism, Developmental Delay, Shingles, Blood Transfusion Reaction, Anesthesia Reactions, Organ Transplant, Chemotherapy, Radiation Therapy, Hyperbaric Therapy, MRSA, VRSA, Vancomycin-Resistant Enterococci, Human Immunodeficiency Virus (HIV), Mumps, Rubella (Al[place] Measles), Pertussis, Clostridium Difficile, Colorectal Cancer, Lung Cancer, Prostate Cancer or Testicular Cancer Family History FAMILY HISTORY: Positive Family Cancer and Family Surgery; Negative Family Psychiatric Problems, Family Respiratory Disorders, Family Cardiac Disorders, Family Gastrointestinal Problems or Family Anesthesia Reaction Surgical History SURGICAL: Positive Cardiac Surgery, Open Heart Surgery, Coronary Artery Bypass Graft, Coronary Stent, Cardiac Catheterization, Pacemaker, Angiogram, Auto Implanted Cardiovert Defib, Endocrine Surgery, Nose Surgery, Oral Surgery, Tonsillectomy, Abdominal Surgery and Vasectomy; Negative Valve Replacement, Vascular Surgery, Carotid Endarterectomy, Thyroidectomy, Ear Surgery, Tympanostomy Tube, Eye Surgery, Adenoidectomy, Cochlear Implant, Corneal Transplant, Throat Surgery, Tracheostomy, Gastric Bypass Surgery, Gastrostomy, Bowel Surgery, Nephrectomy, Transurethral Resection, Joint Replacement, Amputation, Open Reduction Internal Fixation, Arthroscopy, Neurologic Surgery, Brain Shunt or Organ Transplant Social History SMOKING STATUS: Never smoker SUBSTANCE USE: does not use Exam Vital Signs Temp Pulse Resp BP Pulse Ox O2 Del Method O2 Flow Rate 97.9 F 92 20 96/56 L 94 L Room Air 0 02/18/25 07:57 02/18/25 07:57 02/18/25 07:57 02/18/25 07:57 02/18/25 07:57 02/18/25 07:57 02/17/25 20:30 FiO2 25 02/16/25 06:37 Narrative Exam General: AOx3, cooperative, no peripheral edema noted, appears dehydrated Skin: Intact, no cyanosis or edema noted. HEENT: Atraumatic/normocephalic, ROSSY, neck supple Heart: RRR, S1 and S2 without clicks or murmurs Lungs: Decreased breath sounds at the lower bases bilaterally, crackles bilaterally. Abdomen: Soft, nontender. Bowel sounds present . Vascular: Peripheral pulses palpable Neuro: No focal neurological deficits noted. Results Labs 02/18/25 04:44 02/18/25 04:44 Labs: Short CBC 02/18/25 02/18/25 Range/Units 02:27 04:44 WBC 0.8 L* (3.8-10.6) Thou/mm3 Hgb 8.6 L D 9.1 L (13.5-16.0) g/dL Hct 24.0 L 25.9 L (41.0-53.0) % Plt Count 33 L D 36 L (140-440) Thou/mm3 BMP 02/18/25 04:44 Sodium 137 Potassium 4.3 Chloride 102 Carbon Dioxide 24.2 BUN 73 H Creatinine 2.5 H Glucose 127 H Calcium 8.7 Liver Function 02/18/25 Range/Units 04:44 Total Bilirubin 1.0 (0.3-1.2) mg/dL AST 14 (0-34) U/L ALT 17 (10-49) U/L Alkaline Phosphatase 56 (46-116) U/L Albumin 3.2 L (3.4-4.8) gm/dL ABG Interpretation ABG results: 02/15/25 02/16/25 02/16/25 21:03 04:15 16:15 ABG pH 7.45 7.38 ABG pCO2 33 38 ABG pO2 66 L 90 D ABG HCO3 23 22 ABG O2 Saturation 95 98 ABG Base Excess -1 -3 VBG pH 7.47 VBG pCO2 33 L VBG pO2 31 VBG Base Excess 1 02/17/25 15:05 ABG pH ABG pCO2 ABG pO2 ABG HCO3 ABG O2 Saturation ABG Base Excess VBG pH 7.44 VBG pCO2 35 L VBG pO2 44 VBG Base Excess 0 Quality Measures Quality Measures sepsis Current suspected stage: sepsis Possible source: pulmonary Blood cultures ordered: yes Antibiotic ordered: Yes Advance care planning discussed with:: patient Medications Home Medications and Allergies Home Medications ?Medication ?Instructions ?Recorded ?Confirmed ?Type aspirin 81 mg tablet 81 mg PO DAILY 08/16/23 02/16/25 History Held on 11/07/24. Instructions: Resume on 11/08/24. finasteride 5 mg tablet 5 mg PO DAILY 08/16/23 02/16/25 History fluticasone propionate 50 1 spray intranasal BID 08/16/23 02/16/25 History mcg/actuation nasal spray,suspension levothyroxine 25 mcg tablet 25 mcg PO DAILY 08/16/23 02/16/25 History pantoprazole 40 mg tablet,delayed 40 mg PO DAILY 08/16/23 02/16/25 History release tamsulosin 0.4 mg capsule 0.4 mg PO DAILY 08/16/23 02/16/25 History hydroxyzine HCl 50 mg tablet 50 mg PO QID PRN Anxiety 07/31/24 02/16/25 History Allergies Allergy/AdvReac Type Severity Reaction Status Date / Time No Known Allergies Allergy Verified 11/07/24 08:18 Visit Medications Acetaminophen (Acetaminophen 325 Mg Tablet) 650 mg PO Q4HR PRN PRN Reason: PAIN SCALE 1-3 (mild Stop: 03/17/25 22:25 Acetaminophen (Acetaminophen Supp 650 Mg Supp) 650 mg MO Q4HR PRN PRN Reason: PAIN SCALE 1-3 (mild Stop: 03/17/25 22:25 Al Hydrox/Mg Hydrox/Simethicone (Mg Hyd/Al Hyd/Samantha (Maalox Reg) Susp 30 Ml Udc) 30 ml PO Q4HR PRN PRN Reason: Heartburn or Upset Stomach Stop: 03/17/25 22:25 Bumetanide (Bumetanide Inj 0.25 Mg/Ml Vial 4 Ml) 1 mg IVP [id number] PRN PRN Reason: overload Stop: 02/18/25 18:02 Piperacillin/Tazobactam/Dextrose (Zosyn) 3.375 gm in 50 mls @ 12.5 mls/hr IV Q8HR PRASANTH Stop: 02/22/25 22:44 Last Admin: 02/18/25 05:23 Dose: 12.5 mls/hr Levothyroxine Sodium (Levothyroxine Sodium 25 Mcg Tablet) 25 mcg PO ACBR PRASANTH Stop: 03/19/25 05:59 Last Admin: 02/18/25 05:22 Dose: 25 mcg Magnesium Hydroxide (Milk Of Magnesia Susp 30 Ml Udc) 30 ml PO QDAY PRN PRN Reason: CONSTIPATION Stop: 03/17/25 22:25 Last Admin: 02/16/25 13:44 Dose: 30 ml Midodrine (Midodrine 5 Mg Tablet) 10 mg PO TID [facility] Stop: 03/19/25 10:04 Last Admin: 02/18/25 05:22 Dose: 10 mg Mupirocin (Mupirocin Oint 2% 15 Gm Tube) 0 gm TOP TID [facility] Stop: 02/25/25 07:59 Nitroglycerin (Nitroglycerin 0.4 Mg Subl Btl #25) 0.4 mg SL Q5MIN PRN PRN Reason: CHEST PAIN Oseltamivir Phosphate (Oseltamivir 30 Mg Capsule) 30 mg PO DAILY PRASANTH Stop: 02/23/25 08:59 Last Admin: 02/17/25 08:12 Dose: 30 mg Pantoprazole Sodium (Pantoprazole 40 Mg Tablet) 40 mg PO DAILY PRASANTH Stop: 03/18/25 08:59 Last Admin: 02/17/25 08:12 Dose: 40 mg Pharmacy Consult (Vancomycin Pharmacy To Dose 1 Each Each) 1 each IV QDAY PRN PRN Reason: CONSULT Stop: 03/18/25 07:55 Tamsulosin HCl (Tamsulosin Hcl 0.4 Mg Capsule) 0.4 mg PO DAILY [facility] Stop: 03/18/25 08:59 Last Admin: 02/17/25 08:13 Dose: 0.4 mg Discontinued Medications Albuterol/Ipratropium (Albuterol/Ipratropium (Duoneb) Rt Chio 3 Ml Nebu) 3 ml INH X1 ONE Stop: 02/15/25 21:16 Last Admin: 02/15/25 21:24 Dose: 3 ml Filgrastim (Filgrastim Inj (Neupogen) 300 Mcg/Ml Vial) 300 mcg SC X1 ONE Stop: 02/15/25 22:24 Last Admin: 02/16/25 00:13 Dose: Not Given Filgrastim (Filgrastim Inj (Zarxio) 300 Mcg/0.5 Ml Syringe) 300 mcg SC X1 ONE Stop: 02/15/25 23:16 Last Admin: 02/16/25 00:14 Dose: 300 mcg Filgrastim (Filgrastim Inj (Zarxio) 300 Mcg/0.5 Ml Syringe) 300 mcg SC X1 ONE Stop: 02/16/25 19:01 Last Admin: 02/16/25 19:11 Dose: 300 mcg Filgrastim (Filgrastim Inj (Zarxio) 480 Mcg/0.8 Ml Syringe) 480 mcg SC X1 ONE Stop: 02/17/25 14:46 Last Admin: 02/17/25 15:30 Dose: 480 mcg Furosemide (Furosemide Inj 10 Mg/Ml 4ml Vial) 40 mg IVP X1 ONE Stop: 02/15/25 20:19 Last Admin: 02/15/25 20:42 Dose: 40 mg Furosemide (Furosemide Inj 10 Mg/Ml 4ml Vial) 40 mg IVP X1 ONE Stop: 02/15/25 20:45 Last Admin: 02/15/25 21:00 Dose: 40 mg Furosemide (Furosemide Inj 10 Mg/Ml 4ml Vial) 40 mg IVP Q12H ONE Stop: 02/16/25 08:01 Last Admin: 02/16/25 08:34 Dose: 40 mg Furosemide (Furosemide Inj 10 Mg/Ml 4ml Vial) 80 mg IVP X1 ONE Stop: 02/17/25 09:49 Last Admin: 02/17/25 11:34 Dose: Not Given Heparin Sodium (Porcine) (Heparin Sod Inj 5000 Unit/Ml Vial) 5,000 unit SC Q8HR PRASANTH Stop: 03/02/25 05:59 Last Admin: 02/16/25 05:41 Dose: Not Given Ceftriaxone Sodium/Dextrose (Rocephin/D5w 1gm Iv Premix) 1 gm in 50 mls @ 100 mls/hr IV X1 ONE Stop: 02/15/25 20:48 Last Infusion: 02/15/25 21:31 Dose: Infused Norepinephrine Bitartrate (Levophed In Ns 16mg/250ml) 16 mg in 250 mls @ 3.126 mls/hr IV .Q24H PRN; Protocol PRN Reason: PER PROTOCOL Stop: 03/17/25 20:18 Last Titration: 02/16/25 14:07 Dose: 0 mcg/kg/min, 0 mls/hr Acetaminophen (Ofirmev Inj) 1,000 mg in 100 mls @ 250 mls/hr IV X1 ONE Stop: 02/15/25 20:58 Last Infusion: 02/15/25 21:28 Dose: Infused Azithromycin 500 mg/ Sodium (Chloride) 250 mls @ 250 mls/hr IV X1 ONE Stop: 02/15/25 22:07 Last Infusion: 02/15/25 23:02 Dose: Infused Magnesium Sulfate (Magnesium Sulfate Ivpb) 4 gm in 50 mls @ 12.5 mls/hr IV X1 ONE Stop: 02/16/25 01:28 Last Admin: 02/15/25 22:10 Dose: 12.5 mls/hr Magnesium Sulfate (Magnesium Sulfate Ivpb) 4 gm in 50 mls @ 12.5 mls/hr IV X1 ONE Stop: 02/16/25 01:33 Last Admin: 02/15/25 21:51 Dose: Not Given Piperacillin Sod/Tazobactam (Sod 4.5 gm/ Sodium Chloride) 100 mls @ 200 mls/hr IV Q6HR [facility] Stop: 02/22/25 21:35 Last Admin: 02/16/25 06:01 Dose: Not Given Vancomycin HCl 1,500 mg/ (Sodium Chloride) 500 mls @ 150 mls/hr IV X1 ONE Stop: 02/16/25 01:19 Last Admin: 02/16/25 00:44 Dose: 150 mls/hr Piperacillin Sod/Tazobactam (Sod 4.5 gm/ Sodium Chloride) 100 mls @ 200 mls/hr IV Q8H [facility] Stop: 02/22/25 22:44 Last Admin: 02/15/25 22:56 Dose: 200 mls/hr Piperacillin Sod/Tazobactam (Sod 4.5 gm/ Sodium Chloride) 100 mls @ 25 mls/hr IV Q8HR [facility] Stop: 02/22/25 22:44 Last Admin: 02/16/25 05:40 Dose: 25 mls/hr Vancomycin/Sodium Chloride (Vancomycin/Ns 1 Gm Ivpb) 200 mls @ 120 mls/hr IV X1 ONE Stop: 02/17/25 22:39 Last Admin: 02/17/25 20:43 Dose: 120 mls/hr Ketorolac Tromethamine (Ketorolac Inj 30 Mg/Ml Vial) 7.5 mg IVP X1 ONE Stop: 02/15/25 20:36 Last Admin: 02/15/25 21:06 Dose: Not Given Levothyroxine Sodium (Levothyroxine Sodium 25 Mcg Tablet) 25 mcg PO X1 ONE Stop: 02/15/25 22:41 Last Admin: 02/15/25 22:57 Dose: 25 mcg Methylprednisolone Sodium Succinate (Methylprednisolone Sod Succ 62.5 Mg/Ml 2ml Vial) 125 mg IVP X1 ONE Stop: 02/15/25 21:16 Last Admin: 02/15/25 21:47 Dose: 125 mg Morphine Sulfate (Morphine Sulf Inj 10 Mg/Ml Vial) 2 mg IVP X1 ONE Stop: 02/15/25 20:19 Last Admin: 02/15/25 21:06 Dose: Not Given Nitroglycerin (Nitroglycerin Oint 2% 1 Inch Packet) 1 inch TOP X1 ONE Stop: 02/15/25 20:19 Last Admin: 02/15/25 21:14 Dose: 1 inch Nitroglycerin (Nitroglycerin Oint 2% 1 Inch Packet) 1 inch TOP X1 ONE Stop: 02/15/25 20:45 Last Admin: 02/15/25 21:26 Dose: 1 inch Oseltamivir Phosphate (Oseltamivir 75 Mg Capsule) 75 mg PO X1 ONE Stop: 02/15/25 21:09 Last Admin: 02/15/25 21:14 Dose: 75 mg Oseltamivir Phosphate (Oseltamivir 75 Mg Capsule) 75 mg PO Q12H PRASANTH Stop: 02/22/25 21:44 Last Admin: 02/15/25 21:51 Dose: Not Given Oseltamivir Phosphate (Oseltamivir 75 Mg Capsule) 30 mg PO DAILY PRASANTH Stop: 02/23/25 08:59 Sodium Chloride (Sodium Chloride Rt 10% 15 Ml Nebu) 5 ml INH X1 ONE Stop: 02/16/25 08:14 Last Admin: 02/17/25 19:40 Dose: Not Given Assessment & Plan Problem List (1) Acute on chronic renal failure: Status: Acute Assessment and plan: Multifactorial ESTELLA: Dehydration versus sepsis versus cardiorenal syndrome. Patient's baseline creatinine seems to be around 1.7, has CKD stage IIIb, now presented with acute on chronic kidney injury, likely prerenal versus ATN in the setting of dehydration, sepsis and end-stage heart failure.. at the bedside, reported that patient takes as needed Bumex prescribed by cylinder honer, she gave him 1 pill of Bumex 1 day prior to presentation and patient did not make any urine for the next whole day, which made his shortness of breath worse. Currently patient has pure wick catheter, urine output recorded was 475 mL overnight. Progressively worsening renal function following diuresis, BUN 73, creatinine 2.5, consistent with dehydration/prerenal etiology. Patient did not receive IV fluid boluses, as patient has end-stage heart failure EF only 10 to 15%. Patient stays in net positive fluid balance. Patient did receive 2 PRBCs transfusions. ? Hold Bumex as patient is saturating well on room air, and seems clinically dehydrated, also noted worsening renal function with diuresis, BUN increased from 55->73, creatinine worsening from 1.9->2.3. ? Strict intake and output records ? Avoid nephrotoxic drugs, renal dosing of antibiotics, added pharmacy consult for renal dosing of Zosyn (2) Influenza A: Status: Acute Assessment and plan: Pneumonia likely secondary to influenza, leading to acute decompensation and acute hypoxic respiratory failure. Currently on oseltamivir 30 mg/day. ? Management per primary team (3) Neutropenia with fever: Status: Acute Assessment and plan: Neutropenic sepsis in the setting of myelodysplastic syndrome and chemotherapy. Received filgrastim, patient continues to be neutropenic, ANC 300. ? Management per primary team (4) Acute respiratory failure with hypoxia: Status: Acute Assessment and plan: Noted improvement in acute hypoxic respiratory failure, today patient is seen sitting upright, saturating well on room air. ? Supplemental oxygen as needed ? Can hold off on diuresis due to worsening renal function, patient does appear clinically dehydrated ? Rest of the management per primary team (5) CHF (congestive heart failure): Status: Acute Assessment and plan: End-stage heart failure, EF only 10 to 15%, status post BSW-D, NYHA class III/IV symptoms. Home medications include carvedilol, Entresto, tamsulosin, aspirin, finasteride, levothyroxine and pantoprazole. ? Reasonable to hold off on Entresto during acute hospitalization, can re-introduce on discharge once renal function improves. Final decision rests with cardiology. ? Management per primary team and cardiology Plan Plan of care discussed with attending Dr. Tatiana Perry PGY2 Attending Provider Attestation/Addendum Patient seen and examined with resident physician Dr. Perry. Note reviewed, agree with findings and recommendations. Patient admitted with acute on chronic renal insufficiency he has end-stage heart failure with an ejection fraction of 10 to 15%. Agree with diuretics. Noted he follows up with Dr. Leonard- Will transfer care to Dr. Leonard for nephrology care. Thank you Teto for allowing me to participate in the care of Mr. Wyatt.
[2025-02-18] MEDS: OSELTAMIVIR 30 MG CAPSULE PO (09:25)
[2025-02-18] MEDS: TAMSULOSIN HCL 0.4 MG CAPSULE PO (09:25)
[2025-02-18] MEDS: PANTOPRAZOLE 40 MG TABLET PO (09:25)
[2025-02-18 10:08] LABS: Slide Review Platelets confirmed
[2025-02-18] MEDS: MUPIROCIN OINT 2% 15 GM TUBE TOP ×2 (10:22→14:47)
[2025-02-18 11:06] LABS: Base Excess, Venous -7 (-3-3); O2 Saturation, Venous 100 % (96-97); PCO2, Venous 20 mmHg (36-56); PO2, Venous 177 mmHg (15-58); pH, Venous 7.50 (7.33-7.66)
--- NOTE | 2025-02-18 13:16 | ESPR_ITS ---
Documentation for date of: 02/18/25 Subjective Subjective Interval history: Patient seen and examined at bedside. Has no current complaints, is stable, MAP has improved we will continue midodrine. Patient received 2 unit PRBC, 1 unit platelets yesterday. Improved hemoglobin platelet count noted. Absolute neutrophil count 432 this morning, worsening of renal function noted, consulted nephrology. Nephrology recommends holding Bumex for now. Will monitor CBC in a.m., will continue IV antibiotics. Exam Vital Signs Temp Pulse Resp BP Pulse Ox O2 Del Method O2 Flow Rate 97.6 F 88 24 H 101/60 96 Room Air 0 02/18/25 11:54 02/18/25 11:54 02/18/25 11:54 02/18/25 11:54 02/18/25 11:54 02/18/25 11:54 02/17/25 20:30 FiO2 25 02/16/25 06:37 Narrative Exam Physical Exam General: Awake and in no acute distress. Elderly male, conversational and chronically ill appearing. HEENT: Normocephalic, atraumatic, mucous membranes moist. Heart: Regular rate and rhythm, S3 heart sound present, systolic murmur heard loudest in the left lower sternal border. Sternotomy scars present, [employer]-D on the right side. Lungs: Clear to auscultation with no wheezing or crackles. Abdomen: Soft, nondistended, nontender, positive bowel sounds. ?No guarding or rebound tenderness. Neurologic: Alert and oriented x3, no gross neurological deficit, and patient able to move all 4 extremities. Extremities: No edema. No mottling, no signs of poor perfusion. Skin: No rash or ecchymoses. Objective Labs 02/18/25 04:44 02/18/25 04:44 Labs: Laboratory Results - last 24 hr 02/17/25 02/17/25 02/18/25 11:30 15:05 02:27 WBC RBC Hgb 8.6 L D Hct 24.0 L MCV MCH MCHC RDW Std Deviation Plt Count 33 L D Neut % (Auto) Lymph % (Auto) Edwards % (Auto) Eos % (Auto) Baso % (Auto) Neut # (Auto) Lymph # (Auto) Edwards # (Auto) Eos # (Auto) Baso # (Auto) Immature Gran # (Auto) Absolute Nucleated RBC Immature Gran % Nucleated RBC % VBG pH 7.44 VBG pCO2 35 L VBG pO2 44 VBG O2 Sat (Mini) 80 L D VBG Base Excess 0 Sodium Potassium Chloride Carbon Dioxide Anion Gap BUN Creatinine Estim Creat Clear Calc eGFR BUN/Creatinine Ratio Glucose Calculated Osmolality Lactic Acid 1.6 Calcium Corrected Calcium Magnesium Total Bilirubin AST ALT Alkaline Phosphatase Total Protein Albumin Globulin Albumin/Globulin Ratio Random Vancomycin Misc Test Result Platelets confirmed Blood Type O Positive Antibody Screen NEGATIVE Crossmatch See Detail Blood Bank Wristband ID Yes Blood Bank Comment PLATPIR Ready 02/18/25 02/18/25 04:44 11:00 WBC 0.8 L* RBC 3.22 L Hgb 9.1 L Hct 25.9 L MCV 80 MCH 28.3 MCHC 35.1 RDW Std Deviation 48.7 H Plt Count 36 L Neut % (Auto) 42 Lymph % (Auto) 37 Edwards % (Auto) 7 Eos % (Auto) 1 Baso % (Auto) 1 Neut # (Auto) 0.3 L Lymph # (Auto) 0.3 L Edwards # (Auto) 0.1 Eos # (Auto) 0.0 Baso # (Auto) 0.0 Immature Gran # (Auto) 0.10 H Absolute Nucleated RBC 0.00 Immature Gran % 12 H Nucleated RBC % 0 VBG pH 7.50 VBG pCO2 20 L D VBG pO2 177 H D VBG O2 Sat (Mini) 100 H D VBG Base Excess -7 L Sodium 137 Potassium 4.3 Chloride 102 Carbon Dioxide 24.2 Anion Gap 11 BUN 73 H Creatinine 2.5 H Estim Creat Clear Calc 19.5 L eGFR 24 L BUN/Creatinine Ratio 29 H Glucose 127 H Calculated Osmolality 297 H Lactic Acid Calcium 8.7 Corrected Calcium 9.3 Magnesium 2.2 Total Bilirubin 1.0 AST 14 ALT 17 Alkaline Phosphatase 56 Total Protein 7.1 Albumin 3.2 L Globulin 3.9 H Albumin/Globulin Ratio 0.8 L Random Vancomycin 30.7 Misc Test Result Platelets confirmed Blood Type Antibody Screen Crossmatch Blood Bank Wristband ID Blood Bank Comment ABG Interpretation ABG results: 02/15/25 02/16/25 02/16/25 21:03 04:15 16:15 ABG pH 7.45 7.38 ABG pCO2 33 38 ABG pO2 66 L 90 D ABG HCO3 23 22 ABG O2 Saturation 95 98 ABG Base Excess -1 -3 VBG pH 7.47 VBG pCO2 33 L VBG pO2 31 VBG Base Excess 1 02/17/25 02/18/25 15:05 11:00 ABG pH ABG pCO2 ABG pO2 ABG HCO3 ABG O2 Saturation ABG Base Excess VBG pH 7.44 7.50 VBG pCO2 35 L 20 L D VBG pO2 44 177 H D VBG Base Excess 0 -7 L Quality Measures Quality Measures sepsis Current suspected stage: ruled out Possible source: pulmonary Blood cultures ordered: yes Antibiotic ordered: Yes Advance care planning discussed with:: patient Assessment & Plan Assessment Current Active Medications: Generic Name Dose Route Start Last Admin Trade Name Freq PRN Reason Stop Dose Admin Acetaminophen 650 mg 02/15/25 22:26 Acetaminophen 325 Mg Tablet PO 03/17/25 22:25 Q4HR PRN PAIN SCALE 1-3 (mild Acetaminophen 650 mg 02/15/25 22:26 Acetaminophen Supp 650 Mg Supp CO 03/17/25 22:25 Q4HR PRN PAIN SCALE 1-3 (mild Al Hydrox/Mg Hydrox/Simethicone 30 ml 02/15/25 22:26 Mg Hyd/Al Hyd/Samantha (Maalox Reg) Susp 30 Ml Udc PO 03/17/25 22:25 Q4HR PRN Heartburn or Upset Stomach Bumetanide 1 mg 02/17/25 18:03 Bumetanide Inj 0.25 Mg/Ml Vial 4 Ml IVP 02/18/25 18:02 PRNMRX2 PRN overload Piperacillin/Tazobactam/Dextrose 3.375 gm in 50 mls @ 12.5 mls/hr 02/16/25 14:00 02/18/25 05:23 Zosyn IV 02/22/25 22:44 12.5 mls/hr Q8HR PRASANTH Administration Levothyroxine Sodium 25 mcg 02/17/25 06:00 02/18/25 05:22 Levothyroxine Sodium 25 Mcg Tablet PO 03/19/25 05:59 25 mcg ACBR PRASANTH Administration Magnesium Hydroxide 30 ml 02/15/25 22:26 02/16/25 13:44 Milk Of Magnesia Susp 30 Ml Udc PO 03/17/25 22:25 30 ml QDAY PRN Administration CONSTIPATION Midodrine 10 mg 02/17/25 10:05 02/18/25 05:22 Midodrine 5 Mg Tablet PO 03/19/25 10:04 10 mg TID PRASANTH Administration Mupirocin 0 gm 02/18/25 08:00 02/18/25 10:22 Mupirocin Oint 2% 15 Gm Tube TOP 02/25/25 07:59 1 applicatio TID PRASANTH Administration Nitroglycerin 0.4 mg 02/15/25 22:26 Nitroglycerin 0.4 Mg Subl Btl #25 SL Q5MIN PRN CHEST PAIN Oseltamivir Phosphate 30 mg 02/16/25 09:00 02/18/25 09:25 Oseltamivir 30 Mg Capsule PO 02/23/25 08:59 30 mg DAILY PRASANTH Administration Pantoprazole Sodium 40 mg 02/16/25 09:00 02/18/25 09:25 Pantoprazole 40 Mg Tablet PO 03/18/25 08:59 40 mg DAILY PRASANTH Administration Pharmacy Consult 1 each 02/16/25 07:56 Vancomycin Pharmacy To Dose 1 Each Each IV 03/18/25 07:55 QDAY PRN CONSULT Tamsulosin HCl 0.4 mg 02/16/25 09:00 02/18/25 09:25 Tamsulosin Hcl 0.4 Mg Capsule PO 03/18/25 08:59 0.4 mg DAILY PRASANTH Administration Plan 89-year-old male with past medical history of HFrEF (now 10-15%) s/p [employer]-D (last replaced 2023), ischemic cardiomyopathy, CAD s/p CABG x4, MRSA bacteremia, endocarditis, hypertension, GERD, BPH, CKD stage IV, hypothyroidism, and 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 Patient was weaned off norepinephrine infusion and downgraded to Telemetry on 02/16/2025. 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 Chest x-ray showed bilateral pulmonary edema and increased vascular markings. Patient is NYHA class D stage III. No need to maintain MAP greater than 65 as patient has adequate perfusion. Cap refill less than 2 seconds, extremities warm and dry and no signs of mottling. 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 Severe left ventricular enlargement, severely reduced LV function with estimated EF 10-15% and severe global hypokinesis. Mild to moderate right ventricular enlargement with moderate RV dysfunction. RVSP 35 to 40 mmHg. Severe biatrial enlargement. IVC dilated. Moderate AV sclerosis without stenosis and moderate MR and TR. 02/16 2 pm: Discontinued Levophed infusion. Patient was downgraded to Telemetry. -Cardiology consulted, appreciate recommendations -Daily weights -2G sodium restricted diet -1500 cc fluid restriction - Hold diuresis for now, patient euvolemic and blood pressure soft. #Influenza A pneumonia #Septic shock - resolved #Neutropenic fever?resolved On admission ANC 0.23, T 102.7F on 02/15 Patient came in and found to have 2 or more SIRS criteria and was evaluated for sepsis. Patient had fever and endorsed productive cough and chills prior to hospitalization -Continue Tamiflu 30mg po daily [Renally dosed] -Continue Zosyn, vancomycin until culture -Follow-up on culture results, no growth for last 24 hours #History of #Normocytic anemia #Thrombocytopenia #Leukopenia with neutropenia Secondary to myelodysplastic syndrome. Patient's on chemotherapy with azacitidine and chronic PRBC infusions for symptomatic anemia. Last transfusion 3 days ago and chemotherapy 10 days ago. Hb 7.1, WBC 0.7 [ANC 0.23], PLT 21 02/15 filgrastim x1 given. 02/16 filgrastim x1 given. 02/17 filgrastim x 1 given 02/17 received 2 units PRBC and 1 unit platelets. -Neutropenic precautions -Dr. Corona contacted as needed for recommendations -If patient has any further episodes of fever or deteriorates, initiate emergent transfer to [facility] as there is a high chance of patient developing a blast crisis due to his MDS and ANC of 0.2. Per Dr. Corona she has admitting privileges at [facility] and will facilitate transfer if necessary. #History of CAD s/p CABG x 4 -Aspirin and antiplatelets on hold due to severe anemia and thrombocytopenia secondary to MDS requiring chronic transfusions and currently on chemotherapy with azacitidine #Acute kidney injury #History of CKD stage IIIb Baseline CR between 1.6/1.9 02/18-creatinine up trended to 2.5 -Renally dose medication, avoid nephrotoxic agents -Nephrology consulted, appreciate recommendations. #History of hypothyroidism TSH 1.78 -Continue medication levothyroxine 25 mcg p.o. daily Health maintenance: Dispo: Pending improvement, pending blood transfusion Diet: Cardiac, 1500 cc fluid restrict DVT ppx: SCDs GI ppx: Protonix 40mg qD IV lines: 2 pIV Central line: Right subclavian port-a-cath Arterial line: No Douglass: No Code status: FULL CODE Patient plan of care was discussed with the attending physician, Dr. Mace. Heather Sharpe PGY-1 Attending Provider Attestation/Addendum I have discussed and was present for the essential components of the history, physical examination, diagnosis, and treatment plan with the resident. I agree with the patient's care as documented by the resident and amended herein by me. Teto Mace DO. Although this document has been carefully reviewed, there may still be some phonetic and other typographical errors. These errors are purely grammatical due to imperfections in the software program and should not be construed in any way to compromise the substance of the patient's medical care during this visit.
--- NOTE | 2025-02-18 14:00 | ESPR_ITS ---
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 Patient presented to the emergency room [facility] on 02/15/20[facility] a chief complaint of cough, shortness of breath and low blood pressure. Patient stated increased productive cough with phlegm shortly after eating with poor oral intake. Worsening shortness of breath. Patient at baseline sleeps upright. Denies lower pedal edema. Noted to have a low blood pressure at home. Yesterday developed pyrexia of 102.6 Fahrenheit. This prompted patient to seek medical care. Recent follow-up with cardiology. Most recent medication that has been added, spironolactone 25 mg daily. Patient is unsure how long ago this was added. Bumex is taken 1 mg as needed secondary to open low blood pressure. Patient admitted directly to the ICU Cardiology consulted given severe congestive heart failure ejection fraction of 10 to 15% (02/15/2025) 02/17/2025: Patient examined at bedside. No chief complains from cardiac stand point. Rosalio continues to feel fatigued at baseline. Overnight single episode of pyrexia noted 100.9 F. WBC continue to trend down, consider reaching out to Dr. Corona as rosalio may benefit from additional dose of Filgrastim. RBC 2 units ordered and 1 unit of Plt. Bumex 1 mg IV after each bag of PRBcs-->total of Bumex 1 mg IVX 2-NOT given. 02/18/2025: Bumex 1 mg x 1 given on 02/19/2025 to off set additional volume given during transfusion. Folow with renal panel AM. [id number] Exam Vital Signs Temp Pulse Resp BP Pulse Ox O2 Del Method O2 Flow Rate 98.1 F 89 24 H 119/66 93 L Room Air 0 02/18/25 16:00 02/18/25 17:44 02/18/25 16:00 02/18/25 17:44 02/18/25 16:00 02/18/25 16:00 02/17/25 20:30 FiO2 25 02/16/25 06:37 Narrative Exam General Appearance: Alert & Oriented X3, thin male with temporal wasting, who is lying in bed in no acute distress, on room air at spO2 97% HEENT: Skull symmetrical and atraumatic. Conjunctivae pale pink and moist. Pupils equal, round, reactive to light and accommodation (PERRL). External ear without lesion or discharge. Cardio: Normal Rate and Rhythm with S1 and S2 heart sounds. No bruits on carotid auscultation. Peripheral edema, 1+ Lungs: Symmetric with good expansion. Chest and back non-tender. Decreased vesicular breath sounds. Abdomen: Non-tender, Non-distended, Normal Reactive Bowel Sounds Neuro: Alert, cooperative, oriented to person, place, and time. Speech clear. CN grossly intact. Upper motor strength 5/5 and Lower motor strength 4/5. Sensation intact Objective Labs 02/19/25 04:45 02/19/25 04:45 Labs: Laboratory Results - last 24 hr 02/17/25 02/18/25 02/18/25 11:30 02:27 04:44 WBC 0.8 L* RBC 3.22 L Hgb 8.6 L D 9.1 L Hct 24.0 L 25.9 L MCV 80 MCH 28.3 MCHC 35.1 RDW Std Deviation 48.7 H Plt Count 33 L D 36 L Neut % (Auto) 42 Lymph % (Auto) 37 [place] % (Auto) 7 Eos % (Auto) 1 Baso % (Auto) 1 Neut # (Auto) 0.3 L Lymph # (Auto) 0.3 L [place] # (Auto) 0.1 Eos # (Auto) 0.0 Baso # (Auto) 0.0 Immature Gran # (Auto) 0.10 H Absolute Nucleated RBC 0.00 Immature Gran % 12 H Nucleated RBC % 0 VBG pH VBG pCO2 VBG pO2 VBG O2 Sat (Mini) VBG Base Excess Sodium 137 Potassium 4.3 Chloride 102 Carbon Dioxide 24.2 Anion Gap 11 BUN 73 H Creatinine 2.5 H Estim Creat Clear Calc 19.5 L eGFR 24 L BUN/Creatinine Ratio 29 H Glucose 127 H Calculated Osmolality 297 H Calcium 8.7 Corrected Calcium 9.3 Magnesium 2.2 Total Bilirubin 1.0 AST 14 ALT 17 Alkaline Phosphatase 56 Total Protein 7.1 Albumin 3.2 L Globulin 3.9 H Albumin/Globulin Ratio 0.8 L Random Vancomycin 30.7 Misc Test Result Platelets confirmed Platelets confirmed Blood Type O Positive Antibody Screen NEGATIVE Crossmatch See Detail Blood Bank Wristband ID Yes Blood Bank Comment PLATPIR Ready 02/18/25 11:00 WBC RBC Hgb Hct MCV MCH MCHC RDW Std Deviation Plt Count Neut % (Auto) Lymph % (Auto) [place] % (Auto) Eos % (Auto) Baso % (Auto) Neut # (Auto) Lymph # (Auto) [place] # (Auto) Eos # (Auto) Baso # (Auto) Immature Gran # (Auto) Absolute Nucleated RBC Immature Gran % Nucleated RBC % VBG pH 7.50 VBG pCO2 20 L D VBG pO2 177 H D VBG O2 Sat (Mini) 100 H D VBG Base Excess -7 L Sodium Potassium Chloride Carbon Dioxide Anion Gap BUN Creatinine Estim Creat Clear Calc eGFR BUN/Creatinine Ratio Glucose Calculated Osmolality Calcium Corrected Calcium Magnesium Total Bilirubin AST ALT Alkaline Phosphatase Total Protein Albumin Globulin Albumin/Globulin Ratio Random Vancomycin Misc Test Result Blood Type Antibody Screen Crossmatch Blood Bank Wristband ID Blood Bank Comment ABG Interpretation ABG results: 02/15/25 02/16/25 02/16/25 21:03 04:15 16:15 ABG pH 7.45 7.38 ABG pCO2 33 38 ABG pO2 66 L 90 D ABG HCO3 23 22 ABG O2 Saturation 95 98 ABG Base Excess -1 -3 VBG pH 7.47 VBG pCO2 33 L VBG pO2 31 VBG Base Excess 1 02/17/25 02/18/25 15:05 11:00 ABG pH ABG pCO2 ABG pO2 ABG HCO3 ABG O2 Saturation ABG Base Excess VBG pH 7.44 7.50 VBG pCO2 35 L 20 L D VBG pO2 44 177 H D VBG Base Excess 0 -7 L Quality Measures Quality Measures sepsis Current suspected stage: sepsis Possible source: pulmonary Blood cultures ordered: yes Antibiotic ordered: Yes Advance care planning discussed with:: patient Assessment & Plan Assessment Current Active Medications: Generic Name Dose Route Start Last Admin Trade Name Freq PRN Reason Stop Dose Admin Acetaminophen 650 mg 06/22/25 22:26 Acetaminophen 325 Mg Tablet PO 07/22/25 22:25 Q4HR PRN PAIN SCALE 1-3 (mild Acetaminophen 650 mg 02/15/25 22:26 Acetaminophen Supp 650 Mg Supp UT 03/17/25 22:25 Q4HR PRN PAIN SCALE 1-3 (mild Al Hydrox/Mg Hydrox/Simethicone 30 ml 02/15/25 22:26 Mg Hyd/Al Hyd/Samantha (Maalox Reg) Susp 30 Ml Udc PO 03/17/25 22:25 Q4HR PRN Heartburn or Upset Stomach Piperacillin/Tazobactam/Dextrose 3.375 gm in 50 mls @ 12.5 mls/hr 02/16/25 14:00 02/18/25 14:46 Zosyn IV 02/22/25 22:44 12.5 mls/hr Q8HR PRASANTH Administration Levothyroxine Sodium 25 mcg 02/17/25 06:00 02/18/25 05:22 Levothyroxine Sodium 25 Mcg Tablet PO 03/19/25 05:59 25 mcg ACBR PRASANTH Administration Magnesium Hydroxide 30 ml 02/15/25 22:26 02/16/25 13:44 Milk Of Magnesia Susp 30 Ml Udc PO 03/17/25 22:25 30 ml QDAY PRN Administration CONSTIPATION Midodrine 10 mg 02/17/25 10:05 02/18/25 14:46 Midodrine 5 Mg Tablet PO 03/19/25 10:04 10 mg TID PRASNATH Administration Mupirocin 0 gm 02/18/25 08:00 02/18/25 14:47 Mupirocin Oint 2% 15 Gm Tube TOP 02/25/25 07:59 1 applicatio TID PRASANTH Administration Nitroglycerin 0.4 mg 02/15/25 22:26 Nitroglycerin 0.4 Mg Subl Btl #25 SL Q5MIN PRN CHEST PAIN Oseltamivir Phosphate 30 mg 02/16/25 09:00 02/18/25 09:25 Oseltamivir 30 Mg Capsule PO 02/23/25 08:59 30 mg DAILY PRASANTH Administration Pantoprazole Sodium 40 mg 02/16/25 09:00 02/18/25 09:25 Pantoprazole 40 Mg Tablet PO 03/18/25 08:59 40 mg DAILY PRASANTH Administration Pharmacy Consult 1 each 02/16/25 07:56 Vancomycin Pharmacy To Dose 1 Each Each IV 03/18/25 07:55 QDAY PRN CONSULT Pharmacy Consult 1 each 02/18/25 14:33 Pharmacy Renal Dose Adjustment 1 Ea XX 03/20/25 14:32 PRN PRN CONSULT Tamsulosin HCl 0.4 mg 02/16/25 09:00 02/18/25 09:25 Tamsulosin Hcl 0.4 Mg Capsule PO 03/18/25 08:59 0.4 mg DAILY PRASANTH Administration Plan Patient is an 88-year-old male with a past medical history of CAD multivessel disease status post stent placement, history of PR, history of CABG x 3 (2019 at [facility]), severe LV dysfunction, moderate to severe mitral regurgitation, previous history of endocarditis secondary to INFORMATION TECHNOLOGY CONSULTANT-D implantation, CHF-ischemic, 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 Patien was admitted overnight directly into the ICU for Shock, likely cardiogenic. Cardiology consulted given worsening EF, now 10 to 15% (02/16/2025). #Acute Hypoxic Respiratory Failure, resolved #Acute on Chronic Congestive Heart Failure #CHF HFrEF 10% to 15%. #S/p INFORMATION TECHNOLOGY CONSULTANT-D #Severely reduced LV function w/ global hypokinesis & Mild to Moderate Right Venticular Enlargement #PAH, mildly elevated 35-40 Cardiomypoathy patient has a past medical ischemic cardiomyopathy with INFORMATION TECHNOLOGY CONSULTANT-D and severely reduced ejection fraction despite GDMT as outpatient. CHF exacerbation likely triggered by influenza complicated by history or myelodysplasitic syndrome with resolved neurtropenic fever. Continue to hold other GDMT and continue Lasix. Re-evaluate diuretics, consider restarting Bumex and Midodrine it Blood pressure continues to be <65 Echo (02/16/2025): Dilated cardio-myopathy.Severe left ventricular enlargement, severely reduced LV function with an estimated EF of 10 to 15% and severe global hypokinesis. Grade 2 diastolic dysfunction. Mild to moderate right ventricular enlargement with moderate RV dysfunction. RVSP mildly elevated at 35 to 40 mmHg.Severe biatrial enlargement. IVC dilated. No pericardial effusion.Moderate aortic valve sclerosis without stenosis. Moderate MR and moderate TR. Trace AI and mild PI. BNP >3280 TSH (02/16/2025): 1.78 and Free T4 (02/15/2025) 1.10 Lipid Panel: None obtained. 02/17/2025: Ins and Outs [id number]/-874 66.7 kg NYHA Class: IV Plan: -Bumex 1 mg IV X 1, 02/18/2025 -Midodrine 10 mg TID, PRN -Monitor BP >65 goal -Continue to hold Carvedilol and Spironolactone 25 mg qday -Repeat BNP and document dry weight -K>4 and Mg >2 -SpO <90%, support PRN -Daily Weights, Strict Ins and Outs, Fluid Striction (1200), Sodium Restriction 2 grams per day #History of CABG #CAD s/p Stents #History of Endocarditis Patient has a past medical history of CABG and and stents, likely hyperlipidemia. Given Pancytopenia, currently holding Aspirin. Troponin 0.039 Plan -consider lipid panel -no statins listed as home medication -Hold Aspirin -Continue to monitor for signs of chest pain #Neutropenic Fever #Leukopenia w/ neutropenia #Pneumonia, Influenza Positive #Myelodysplastic disease #Pancytopenia Patient has a past medical history of myelodysplastic disease on chemotherapy likely Vidaz, per Dr. Corona note on 01/20/2025. Diagnosed at [facility] on 02/06/2024. 02/17/2025: patient would likely benefit from Filgrastim, consider reach out to Dr. Corona once more Cocci IgM negative, Legionella Pending, Beta (1,3) D Glucan, Blood Culture 24 hrs and Urine Culture Penidng, and MRSA screen pending Plan -Transfuse products -Zosyn 02/16/2025 & Tamiflu -If condition worsens, please initiate emergent transfer to [facility] as there is a high change of patient developing a blast crisis due MDS and ANC of 0.2. *Dr. Corona has admitting privilages at [facility], contact. -Filgrastim X 1 (02/17/25) -Chemotherapy, Vidaz (outpatinet) -Dexamethasone ? likely only given briefly, consider reaching out to Dr. Corona #ESTELLA on CKD III Patient has a past medical history of chronic kidney disease likely stage III who follows Dr. Burks. ESTELLA on CKD likely secondary to poor oral intake per history taken. BUN/creatinine ratio greater than 20. Monitor for intrinsic renal failure less likely as patient has been having good urine output versus worsening CKD UA noted elevated RBCs 139 and urine blood +3 02/19/2025: worsening renal function BUN 73 and Cr 2.5, still in pre-renal range. Consider Urine Electrolytes. Patient received two units of RBCs, likely worsening hydrostatic pressure and within increased strain on heart failure. Continue to follow renal function. Plan - Strict ins and outs - Renally dose medication - Avoid nephrotoxins - Consider renal consult if condition worsens, Dr. Leonard. - Consider urine electrolytes if no improvement #Hypothyroidism Past medical history of hypothyroidism levothyroxine 25 mcg. TSH (02/15/2025) 1.78 and free T4 (02/15/2025 1.10 Plan - Resume home medication levothyroxine 25 mcg #BNP Tamsulosin 0.4 consider PSA levels given positive RBCs in UA #History of GERD home medication may be protonix #Cardiogenic shock, secondary to CHF exacerbation resolved Patient off pressors Health Maintenance: Disp: Pt is currently admitted to floors for further management of cardiogenic shock, improving, cardiology consulted given CHF, HFrEF 10-15%. FEN: Cardiac Diet, fluid restricted 1500 DVT:Compression Device Code: DNR - The patient's plan was discussed with attending Dr. Jeffrey Mcmahon MD PGY1 Internal Medicine Attending Provider Attestation/Addendum I have personally seen and examined the patient separately on the above date of service and discussed the plan of care with the resident. I reviewed the resident Dr. Dinora Mcmahon consultation progress note and agree with the resident findings and plan in the note above and have also edited the documentation to reflect my findings and plan. Moises Murphy M.D. Interventional Cardiology
--- NOTE | 2025-02-18 15:18 | PC.SS ---
Rounding Note: Patient Flu +. Receiving IV antibiotics. WBC is low. Nephrology is consulting.
[2025-02-18] MEDS: BUMETANIDE INJ 0.25 MG/ML VIAL 4 ML 1 MG IVP (17:44)
[2025-02-18 17:50] LABS: (1-3)-B-D-glucan* 45 pg/mL
[2025-02-19] VITALS (12 sets, daily range): BP systolic 93–120; BP diastolic 57–68; PULSE 80–101; RESP 18–98; TEMP 36.3–37.4; O2SAT 91–95; BMI 24.0
[2025-02-19] MEDS: PIPER/TAZO 3.375 GM PREMIX 3.375 GM/50 ML BAG IV (05:09)
[2025-02-19] MEDS: LEVOTHYROXINE SODIUM 25 MCG TABLET PO (05:09)
[2025-02-19 06:01] LABS: Basophils # (Auto) 0.0 Thou/mm3 (0.0-0.2); Basophils % (Auto) 1 % (0-2.5); Eosinophils # (Auto) 0.0 Thou/mm3 (0.0-0.5); Eosinophils % (Auto) 0 % (0-10); Hematocrit 25.0 % (41.0-53.0); Immature Granulocytes Auto 0.04 Thou/mm3 (0.00-0.00); Lymphocytes # (Auto) 0.3 Thou/mm3 (1.0-4.8); Lymphocytes % (Auto) 35 % (10-50); Mean Corpuscular HGB Conc 34.0 g/dl (31.0-37.0); Mean Corpuscular Hemoglobin 28.4 pg (25.0-35.0); Mean Corpuscular Volume 84 fL (80-100); Monocytes # (Auto) 0.1 Thou/mm3 (0.0-0.8); Monocytes % (Auto) 13 % (0-12); Neutrophils # (Auto) 0.4 Thou/mm3 (1.8-7.7); Neutrophils % (Auto) 47 % (37-80); Nucleated Red Blood Cell # 0.00 Thou/mm3 (0.00-0.00); Nucleated Red Blood Cell % 0 /100 WBC (0); RDW Standard Deviation 50.6 fL (35.1-43.9); Red Blood Count 2.99 Miln/mm3 (4.50-5.90)
[2025-02-19 06:04] LABS: Hemoglobin 8.5 g/dL (13.5-16.0); Platelet Count 35 Thou/mm3 (140-440); White Blood Count 0.9 Thou/mm3 (3.8-10.6)
[2025-02-19 06:05] LABS: Slide Review Platelets confirmed
[2025-02-19 06:33] LABS: Alanine Aminotransferase 18 U/L (10-49); Albumin, Serum 2.9 gm/dL (3.4-4.8); Albumin/Globulin Ratio 0.8 (1.2-2.2); Alkaline Phosphatase 56 U/L (46-116); Anion Gap 13 (7-16); Aspartate Amino Transferase 13 U/L (0-34); BUN/Creatinine Ratio 27 Ratio (12-20); Bilirubin,Total 0.7 mg/dL (0.3-1.2); Blood Urea Nitrogen 67 mg/dL (9-23); Calcium 8.5 mg/dL (8.3-10.6); Calcium (Corrected) 9.4 mg/dL (8.5-10.1); Carbon Dioxide 20.4 mMol/L (20.0-31.0); Chloride 104 mMol/L (98-107); Creatinine (Component) 2.5 mg/dL (0.6-1.3); Estimated Creatinine Clearance 18.8 mL/min (>60); Globulin 3.6 gm/dL (2.3-3.5); Glucose 149 mg/dL (74-106); Magnesium 2.1 mg/dL (1.6-2.6); Osmolality,Calculated 296 (275-295); Potassium 4.0 mMol/L (3.4-5.1); Sodium 137 mMol/L (136-145); Total Protein 6.5 gm/dL (5.7-8.2); Vancomycin,Random 21.9 mcg/mL; eGFR 24 See Note
[2025-02-19 06:59] LABS: Interpretation NEGATIVE
[2025-02-19] MEDS: OSELTAMIVIR 30 MG CAPSULE PO (09:24)
[2025-02-19] MEDS: ALBUMIN HUMAN 25% IVPB 12.5 GM/50 ML BTL IV (09:24)
[2025-02-19] MEDS: PANTOPRAZOLE 40 MG TABLET PO (09:25)
[2025-02-19] MEDS: TAMSULOSIN HCL 0.4 MG CAPSULE PO (09:25)
[2025-02-19] MEDS: BUMETANIDE INJ 0.25 MG/ML VIAL 4 ML 2 MG IVP (09:43)
--- NOTE | 2025-02-19 12:50 | ESCONSULT_ITS ---
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 Patient was brought to emergency room from [facility] due to complaint of dyspnea low-grade fever and cough. Nephrology is consulted for ESTELLA on CKD. Pt has advanced CKD. cc:: cc: Celio Mace DO Review of Systems Review of Systems Systems Reviewed: All systems reviewed, normal except as documented Meds Home Medications and Allergies Home Medications ?Medication ?Instructions ?Recorded ?Confirmed ?Type aspirin 81 mg tablet 81 mg PO DAILY 08/16/2301/26 History Held on 11/07/24. Instructions: Resume on 11/08/24. finasteride 5 mg tablet 5 mg PO DAILY 08/16/2302/16 History fluticasone propionate 50 1 spray intranasal BID 08/1602/16/25 History mcg/actuation nasal spray,suspension levothyroxine 25 mcg tablet 25 mcg PO DAILY 08/16/23 0 02/16/25 History pantoprazole 40 mg tablet,delayed 40 mg PO DAILY 08/1602/16/25 History release tamsulosin 0.4 mg capsule 0.4 mg PO DAILY 08/16/23 History hydroxyzine HCl 50 mg tablet 50 mg PO QID PRN Anxiety 07/31/24 02/16/25 History Allergies Allergy/AdvReac Type Severity Reaction Status Date / Time No Known Allergies Allergy Verified 11/07/24 08:18 Exam Vital Signs Temp Pulse Resp BP Pulse Ox O2 Del Method O2 Flow Rate 97.9 F 93 21 H 105/66 93 L Room Air 0 02/19/25 12:00 02/19/25 12:00 02/19/25 12:00 02/19/25 12:00 02/19/25 12:00 02/19/25 12:02/19/25 00:00 FiO2 25 02/16/25 06:37 Narrative Exam General: no acute distress Chest : nichelle crackles Heart s1, s2, plus 1 edema GI: no tenderness Results Labs 02/20/25 04:34 02/20/25 04:34 Labs: Short CBC 02/19/25 Range/Units 04:45 WBC 0.9 L* (3.8-10.6) Thou/mm3 Hgb 8.5 L (13.5-16.0) g/dL Hct 25.0 L (41.0-53.0) % Plt Count 35 L (140-440) Thou/mm3 BMP 02/19/25 04:45 Sodium 137 Potassium 4.0 Chloride 104 Carbon Dioxide 20.4 BUN 67 H Creatinine 2.5 H Glucose 149 H Calcium 8.5 Liver Function 02/19/25 Range/Units 04:45 Total Bilirubin 0.7 (0.3-1.2) mg/dL AST 13 (0-34) U/L ALT 18 (10-49) U/L Alkaline Phosphatase 56 (46-116) U/L Albumin 2.9 L (3.4-4.8) gm/dL ABG Interpretation ABG results: 02/15/25 02/16/25 02/16/25 21:03 04:15 16:15 ABG pH 7.45 7.38 ABG pCO2 33 38 ABG pO2 66 L 90 D ABG HCO3 23 22 ABG O2 Saturation 95 98 ABG Base Excess -1 -3 VBG pH 7.47 VBG pCO2 33 L VBG pO2 31 VBG Base Excess 1 02/17/25 02/18/25 15:05 11:00 ABG pH ABG pCO2 ABG pO2 ABG HCO3 ABG O2 Saturation ABG Base Excess VBG pH 7.44 7.50 VBG pCO2 35 L 20 L D VBG pO2 44 177 H D VBG Base Excess 0 -7 L Assessment & Plan Assessment and plan (1) Acute on chronic renal failure: Status: Acute Assessment and plan: Pt has advanced kidney disease. baseline creat is around 2 ESTELLA is most likely due to cardiorenal syndrome Creat stable as compared to yesterday c/w diuresis for CHF monitor electrolytes (2) Influenza A: Status: Acute (3) Neutropenia with fever: Status: Acute (4) Acute respiratory failure with hypoxia: Status: Acute (5) CHF (congestive heart failure): Status: Acute
--- NOTE | 2025-02-19 12:50 | ESPR_ITS ---
Documentation for date of: 02/19/25 Subjective Subjective Interval history: see other note Exam Vital Signs Temp Pulse Resp BP Pulse Ox O2 Del Method O2 Flow Rate 97.9 F 93 21 H 105/66 93 L Room Air 0 02/19/25 12:00 02/19/25 12:00 02/19/25 12:00 02/19/25 12:00 02/19/25 12:00 02/19/25 12:00 02/19/25 00:00 FiO2 25 02/16/25 06:37 Objective Labs 02/20/25 04:34 02/20/25 04:34 Labs: Laboratory Results - last 24 hr 02/15/25 02/19/25 23:15 04:45 WBC 0.9 L* RBC 2.99 L Hgb 8.5 L Hct 25.0 L MCV 84 MCH 28.4 MCHC 34.0 RDW Std Deviation 50.6 H Plt Count 35 L Neut % (Auto) 47 Lymph % (Auto) 35 [place] % (Auto) 13 H Eos % (Auto) 0 Baso % (Auto) 1 Neut # (Auto) 0.4 L Lymph # (Auto) 0.3 L [place] # (Auto) 0.1 Eos # (Auto) 0.0 Baso # (Auto) 0.0 Immature Gran # (Auto) 0.04 H Absolute Nucleated RBC 0.00 Immature Gran % 5 H Nucleated RBC % 0 Sodium 137 Potassium 4.0 Chloride 104 Carbon Dioxide 20.4 Anion Gap 13 BUN 67 H Creatinine 2.5 H Estim Creat Clear Calc 18.8 L eGFR 24 L BUN/Creatinine Ratio 27 H Glucose 149 H Calculated Osmolality 296 H Calcium 8.5 Corrected Calcium 9.4 Magnesium 2.1 Total Bilirubin 0.7 AST 13 ALT 18 Alkaline Phosphatase 56 Total Protein 6.5 Albumin 2.9 L Globulin 3.6 H Albumin/Globulin Ratio 0.8 L Random Vancomycin 21.9 Beta-(1,3)-D-Glucan 45 B-(1,3)-D-Glucan Intrp NEGATIVE Misc Test Result Platelets confirmed ABG Interpretation ABG results: 02/15/25 02/16/25 02/16/25 21:03 04:15 16:15 ABG pH 7.45 7.38 ABG pCO2 33 38 ABG pO2 66 L 90 D ABG HCO3 23 22 ABG O2 Saturation 95 98 ABG Base Excess -1 -3 VBG pH 7.47 VBG pCO2 33 L VBG pO2 31 VBG Base Excess 1 02/17/25 02/18/25 15:05 11:00 ABG pH ABG pCO2 ABG pO2 ABG HCO3 ABG O2 Saturation ABG Base Excess VBG pH 7.44 7.50 VBG pCO2 35 L 20 L D VBG pO2 44 177 H D VBG Base Excess 0 -7 L Assessment & Plan Assessment and plan (1) Acute on chronic renal failure: Status: Acute (2) Influenza A: Status: Acute (3) Neutropenia with fever: Status: Acute (4) Acute respiratory failure with hypoxia: Status: Acute (5) CHF (congestive heart failure): Status: Acute
--- NOTE | 2025-02-19 13:12 | PC.SS ---
Update: Plan is to continue IV diuresis. Patient receiving IV antibiotics. Pending WBC improvement.
--- NOTE | 2025-02-19 13:16 | ESPR_ITS ---
Documentation for date of: 02/19/25 Subjective Subjective Interval history: Patient seen and examined at bedside. Has no current complaints. Patient received Bumex x 1 yesterday, scheduled for albumin and IV Bumex per cardiology recommendations for today. [employer] Need[employer] Operator Dr. Leonard will follow case, appreciate recommendations Continues to be on reverse isolation precautions, ANC 468, will order manual differentiation in a.m. of WBC. No overnight fevers, will discontinue antibiotics, blood cultures have been negative. Will continue close monitoring, pending white count improvement, currently on Tamiflu. Exam Vital Signs Temp Pulse Resp BP Pulse Ox O2 Del Method O2 Flow Rate 97.9 F 93 21 H 105/66 93 L Room Air 0 02/19/25 12:00 02/19/25 12:00 02/19/25 12:00 02/19/25 12:00 02/19/25 12:00 02/19/25 12:00 02/19/25 00:00 FiO2 25 02/16/25 06:37 Narrative Exam Physical Exam General: Awake and in no acute distress. Elderly male, conversational and chronically ill appearing. HEENT: Normocephalic, atraumatic, mucous membranes moist. Heart: Regular rate and rhythm, S3 heart sound present, systolic murmur heard loudest in the left lower sternal border. Sternotomy scars present, WAIVER ANALYST-D on the right side. Lungs: Clear to auscultation with no wheezing or crackles. Abdomen: Soft, nondistended, nontender, positive bowel sounds. ?No guarding or rebound tenderness. Neurologic: Alert and oriented x3, no gross neurological deficit, and patient able to move all 4 extremities. Extremities: Trace bilateral lower extremity edema. No mottling, no signs of poor perfusion. Skin: No rash or ecchymoses. Objective Labs 02/19/25 04:45 02/19/25 04:45 Labs: Laboratory Results - last 24 hr 02/15/25 02/19/25 23:15 04:45 WBC 0.9 L* RBC 2.99 L Hgb 8.5 L Hct 25.0 L MCV 84 MCH 28.4 MCHC 34.0 RDW Std Deviation 50.6 H Plt Count 35 L Neut % (Auto) 47 Lymph % (Auto) 35 [place] % (Auto) 13 H Eos % (Auto) 0 Baso % (Auto) 1 Neut # (Auto) 0.4 L Lymph # (Auto) 0.[address] [place] # (Auto) 0.1 Eos # (Auto) 0.0 Baso # (Auto) 0.0 Immature Gran # (Auto) 0.04 H Absolute Nucleated RBC 0.00 Immature Gran % 5 H Nucleated RBC % 0 Sodium 137 Potassium 4.0 Chloride 104 Carbon Dioxide 20.4 Anion Gap 13 BUN 67 H Creatinine 2.5 H Estim Creat Clear Calc 18.8 L eGFR 24 L BUN/Creatinine Ratio 27 H Glucose 149 H Calculated Osmolality 296 H Calcium 8.5 Corrected Calcium 9.4 Magnesium 2.1 Total Bilirubin 0.7 AST 13 ALT 18 Alkaline Phosphatase 56 Total Protein 6.5 Albumin 2.9 L Globulin 3.6 H Albumin/Globulin Ratio 0.8 L Random Vancomycin 21.9 Beta-(1,3)-D-Glucan 45 B-(1,3)-D-Glucan Intrp NEGATIVE Misc Test Result Platelets confirmed ABG Interpretation ABG results: 02/15/25 02/16/25 02/16/25 21:03 04:15 16:15 ABG pH 7.45 7.38 ABG pCO2 33 38 ABG pO2 66 L 90 D ABG HCO3 23 22 ABG O2 Saturation 95 98 ABG Base Excess -1 -3 VBG pH 7.47 VBG pCO2 33 L VBG pO2 31 VBG Base Excess 1 02/17/25 02/18/25 15:05 11:00 ABG pH ABG pCO2 ABG pO2 ABG HCO3 ABG O2 Saturation ABG Base Excess VBG pH 7.44 7.50 VBG pCO2 35 L 20 L D VBG pO2 44 177 H D VBG Base Excess 0 -7 L Quality Measures Quality Measures sepsis Current suspected stage: ruled out Possible source: pulmonary Blood cultures ordered: yes Antibiotic ordered: Yes Advance care planning discussed with:: patient Assessment & Plan Assessment Current Active Medications: Generic Name Dose Route Start Last Admin Trade Name Freq PRN Reason Stop Dose Admin Acetaminophen 650 mg 02/15/25 22:26 Acetaminophen 325 Mg Tablet PO 03/17/25 22:25 Q4HR PRN PAIN SCALE 1-3 (mild Acetaminophen 650 mg 02/15/25 22:26 Acetaminophen Supp 650 Mg Supp TX 03/17/25 22:25 Q4HR PRN PAIN SCALE 1-3 (mild Al Hydrox/Mg Hydrox/Simethicone 30 ml 02/15/25 22:26 Mg Hyd/Al Hyd/Samantha (Maalox Reg) Susp 30 Ml Udc PO 03/17/25 22:25 Q4HR PRN Heartburn or Upset Stomach Levothyroxine Sodium 25 mcg 02/17/25 06:00 02/19/25 05:09 Levothyroxine Sodium 25 Mcg Tablet PO 03/19/25 05:59 25 mcg ACBR PRASANTH Administration Magnesium Hydroxide 30 ml 02/15/25 22:26 02/16/25 13:44 Milk Of Magnesia Susp 30 Ml Udc PO 03/17/25 22:25 30 ml QDAY PRN Administration CONSTIPATION Midodrine 10 mg 02/17/25 10:05 02/19/25 05:12 Midodrine 5 Mg Tablet PO 03/19/25 10:04 Not Given TID PRASANTH Mupirocin 0 gm 02/18/25 08:00 02/19/25 05:13 Mupirocin Oint 2% 15 Gm Tube TOP 02/25/25 07:59 Not Given TID PRASANTH Nitroglycerin 0.4 mg 02/15/25 22:26 Nitroglycerin 0.4 Mg Subl Btl #25 SL Q5MIN PRN CHEST PAIN Oseltamivir Phosphate 30 mg 02/16/25 09:00 02/19/25 09:24 Oseltamivir 30 Mg Capsule PO 02/23/25 08:59 30 mg DAILY PRASANTH Administration Pantoprazole Sodium 40 mg 02/16/25 09:00 02/19/25 09:25 Pantoprazole 40 Mg Tablet PO 03/18/25 08:59 40 mg DAILY PRASANTH Administration Pharmacy Consult 1 each 02/18/25 14:33 Pharmacy Renal Dose Adjustment 1 Ea XX 03/20/25 14:32 PRN PRN CONSULT Tamsulosin HCl 0.4 mg 02/16/25 09:00 02/19/25 09:25 Tamsulosin Hcl 0.4 Mg Capsule PO 03/18/25 08:59 0.4 mg DAILY PRASANTH Administration Plan 89-year-old male with past medical history of HFrEF (now 10-15%) s/p WAIVER ANALYST-D (last replaced 2023), ischemic cardiomyopathy, CAD s/p CABG x4, MRSA bacteremia, endocarditis, hypertension, GERD, BPH, CKD stage IV, hypothyroidism, and 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 Patient was weaned off norepinephrine infusion and downgraded to Telemetry on 02/16/2025. #Acute decompensated chronic systolic and diastolic congestive heart failure exacerbation [EF 10-15%] #S/p WAIVER ANALYST?D #History of infective endocarditis secondary to WAIVER ANALYST-D #Cardiogenic shock secondary to CHF exacerbation BNP > 3000 on admission. Chest x-ray showed bilateral pulmonary edema and increased vascular markings. Patient is NYHA class D stage III. No need to maintain MAP greater than 65 as patient has adequate perfusion. Cap refill less than 2 seconds, extremities warm and dry and no signs of mottling. 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 Severe left ventricular enlargement, severely reduced LV function with estimated EF 10-15% and severe global hypokinesis. Mild to moderate right ventricular enlargement with moderate RV dysfunction. RVSP 35 to 40 mmHg. Severe biatrial enlargement. IVC dilated. Moderate AV sclerosis without stenosis and moderate MR and TR. 02/16 2 pm: Discontinued Levophed infusion. Patient was downgraded to Telemetry. -Cardiology consulted, appreciate recommendations -Daily weights -2G sodium restricted diet -1500 cc fluid restriction -Patient received Bumex 1 mg x 1 02/18, scheduled for IV albumin and Bumex per cardiology recommendations today. -Continue midodrine 10 mg 3 times daily #Influenza A pneumonia #Septic shock - resolved #Neutropenic fever?resolved #MRSA nares positive On admission ANC 0.23, T 102.7F on 02/15 Patient came in and found to have 2 or more SIRS criteria and was evaluated for sepsis. Patient had fever and endorsed productive cough and chills prior to hospitalization -Continue Tamiflu 30mg po daily [Renally dosed] - Discontinued vancomycin and Zosyn, no growth on cultures for 24 hours - Mupirocin nasally for 5 days #History of #Normocytic anemia #Thrombocytopenia #Leukopenia with neutropenia Secondary to myelodysplastic syndrome. Patient's on chemotherapy with azacitidine and chronic PRBC infusions for symptomatic anemia. Last transfusion 3 days ago and chemotherapy 10 days ago. Hb 7.1, WBC 0.7 [ANC 0.23], PLT 21 02/15 filgrastim x1 given. 02/16 filgrastim x1 given. 02/17 filgrastim x 1 given 02/17 received 2 units PRBC and 1 unit platelets. -Neutropenic precautions -Dr. Corona contacted as needed for recommendations -If patient has any further episodes of fever or deteriorates, initiate emergent transfer to [facility] as there is a high chance of patient developing a blast crisis due to his MDS and ANC of 0.2. Per Dr. Corona she has admitting privileges at [facility] and will facilitate transfer if necessary. #History of CAD s/p CABG x 4 -Aspirin and antiplatelets on hold due to severe anemia and thrombocytopenia secondary to MDS requiring chronic transfusions and currently on chemotherapy with azacitidine #Acute kidney injury #History of CKD stage IIIb Baseline CR between 1.6/1.9 02/18-creatinine up trended to 2.5 -Renally dose medication, avoid nephrotoxic agents -Nephrology consulted, appreciate recommendations. #History of hypothyroidism TSH 1.78 -Continue medication levothyroxine 25 mcg p.o. daily Health maintenance: Dispo: Pending improvement, pending blood transfusion Diet: Cardiac, 1500 cc fluid restrict DVT ppx: SCDs GI ppx: Protonix 40mg qD IV lines: 2 pIV Central line: Right subclavian port-a-cath Arterial line: No Douglass: No Code status: FULL CODE Patient plan of care was discussed with the attending physician, Dr. Mace. Heather Sharpe PGY-1 Attending Provider Attestation/Addendum I have discussed and was present for the essential components of the history, physical examination, diagnosis, and treatment plan with the resident. I agree with the patient's care as documented by the resident and amended herein by me. Teto Mace DO. Although this document has been carefully reviewed, there may still be some phonetic and other typographical errors. These errors are purely grammatical due to imperfections in the software program and should not be construed in any way to compromise the substance of the patient's medical care during this visit.
[2025-02-19] MEDS: MUPIROCIN OINT 2% 15 GM TUBE TOP ×2 (13:48→21:23)
[2025-02-19] MEDS: MIDODRINE 5 MG TABLET 10 MG PO ×2 (13:48→21:21)
--- NOTE | 2025-02-19 20:40 | ESPR_ITS ---
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 Patient presented to the emergency room [facility] on 02[facility]15[facility] [facility], shortness of breath and low blood pressure. Patient stated increased productive cough with phlegm shortly after eating with poor oral intake. Worsening shortness of breath. Patient at baseline sleeps upright. Denies lower pedal edema. Noted to have a low blood pressure at home. Yesterday developed pyrexia of 102.6 Fahrenheit. This prompted patient to seek medical care. Recent follow-up with cardiology. Most recent medication that has been added, spironolactone 25 mg daily. Patient is unsure how long ago this was added. Bumex is taken 1 mg as needed secondary to open low blood pressure. Patient admitted directly to the ICU Cardiology consulted given severe congestive heart failure ejection fraction of 10 to 15% (02/15/2025) 02/17/2025: Patient examined at bedside. No chief complains from cardiac stand point. Rosalio continues to feel fatigued at baseline. Overnight single episode of pyrexia noted 100.9 F. WBC continue to trend down, consider reaching out to Dr. Corona as rosalio may benefit from additional dose of Filgrastim. RBC 2 units ordered and 1 unit of Plt. Bumex 1 mg IV after each bag of PRBcs-->total of Bumex 1 mg IVX 2-NOT given. 02/18/2025: Bumex 1 mg x 1 given on 02/19/2025 to off set additional volume given during transfusion. Folow with renal panel AM. [id number]. 02/20/2025: Patient examined at bedside. Improved delirium as yesterday, patient was speaking to people not present in the room. Bumex 2 mg IV X1 and Albumin. This morning patient is alert and orientated X 3. In 1280/. Monitor BP and renal function AM. Exam Vital Signs Temp Pulse Resp BP Pulse Ox O2 Del Method O2 Flow Rate 98.1 F 86 24 H 118/66 93 L Room Air 0 02/19/25 16:00 02/19/25 19:54 02/19/25 19:54 02/19/25 16:00 02/19/25 19:54 02/19/25 16:00 02/19/25 00:00 FiO2 25 02/16/25 06:37 Narrative Exam General Appearance: Alert & Oriented X3, thin male with temporal wasting, who is lying in bed in no acute distress, on room air at spO2 97% HEENT: Skull symmetrical and atraumatic. Conjunctivae pale pink and moist. Pupils equal, round, reactive to light and accommodation (PERRL). External ear without lesion or discharge. Cardio: Normal Rate and Rhythm with S1 and S2 heart sounds. No bruits on carotid auscultation. Peripheral edema, 1+ Lungs: Symmetric with good expansion. Chest and back non-tender. Decreased vesicular breath sounds. Abdomen: Non-tender, Non-distended, Normal Reactive Bowel Sounds Neuro: Alert, cooperative, oriented to person, place, and time. Speech clear. CN grossly intact. Upper motor strength 5/5 and Lower motor strength 4/5. Sensation intact BUN 67 Cr 2.5 GFR 24 Objective Labs 02/20/25 04:34 02/20/25 04:34 Labs: Laboratory Results - last 24 hr 02/15/25 02/19/25 23:15 04:45 WBC 0.9 L* RBC 2.99 L Hgb 8.5 L Hct 25.0 L MCV 84 MCH 28.4 MCHC 34.0 RDW Std Deviation 50.6 H Plt Count 35 L Neut % (Auto) 47 Lymph % (Auto) 35 [place] % (Auto) 13 H Eos % (Auto) 0 Baso % (Auto) 1 Neut # (Auto) 0.4 L Lymph # (Auto) 0.3 L [place] # (Auto) 0.1 Eos # (Auto) 0.0 Baso # (Auto) 0.0 Immature Gran # (Auto) 0.04 H Absolute Nucleated RBC 0.00 Immature Gran % 5 H Nucleated RBC % 0 Sodium 137 Potassium 4.0 Chloride 104 Carbon Dioxide 20.4 Anion Gap 13 BUN 67 H Creatinine 2.5 H Estim Creat Clear Calc 18.8 L eGFR 24 L BUN/Creatinine Ratio 27 H Glucose 149 H Calculated Osmolality 296 H Calcium 8.5 Corrected Calcium 9.4 Magnesium 2.1 Total Bilirubin 0.7 AST 13 ALT 18 Alkaline Phosphatase 56 Total Protein 6.5 Albumin 2.9 L Globulin 3.6 H Albumin/Globulin Ratio 0.8 L Random Vancomycin 21.9 Beta-(1,3)-D-Glucan 45 B-(1,3)-D-Glucan Intrp NEGATIVE Misc Test Result Platelets confirmed ABG Interpretation ABG results: 02/15/25 02/16/25 02/16/25 21:03 04:15 16:15 ABG pH 7.45 7.38 ABG pCO2 33 38 ABG pO2 66 L 90 D ABG HCO3 23 22 ABG O2 Saturation 95 98 ABG Base Excess -1 -3 VBG pH 7.47 VBG pCO2 33 L VBG pO2 31 VBG Base Excess 1 02/17/25 02/18/25 15:05 11:00 ABG pH ABG pCO2 ABG pO2 ABG HCO3 ABG O2 Saturation ABG Base Excess VBG pH 7.44 7.50 VBG pCO2 35 L 20 L D VBG pO2 44 177 H D VBG Base Excess 0 -7 L Quality Measures Quality Measures sepsis Current suspected stage: ruled out Possible source: pulmonary Blood cultures ordered: yes Antibiotic ordered: Yes Advance care planning discussed with:: patient Assessment & Plan Assessment Current Active Medications: Generic Name Dose Route Start Last Admin Trade Name Freq PRN Reason Stop Dose Admin Acetaminophen 650 mg 02/15/25 22:26 Acetaminophen 325 Mg Tablet PO 03/17/25 22:25 Q4HR PRN PAIN SCALE 1-3 (mild Acetaminophen 650 mg 02/15/25 22:26 Acetaminophen Supp 650 Mg Supp IN 03/17/25 22:25 Q4HR PRN PAIN SCALE 1-3 (mild Al Hydrox/Mg Hydrox/Simethicone 30 ml 02/15/25 22:26 Mg Hyd/Al Hyd/Samantha (Maalox Reg) Susp 30 Ml Udc PO 03/17/25 22:25 Q4HR PRN Heartburn or Upset Stomach Levothyroxine Sodium 25 mcg 02/17/25 06:00 02/19/25 05:09 Levothyroxine Sodium 25 Mcg Tablet PO 03/19/25 05:59 25 mcg ACBR PRASANTH Administration Magnesium Hydroxide 30 ml 02/15/25 22:26 02/16/25 13:44 Milk Of Magnesia Susp 30 Ml Udc PO 03/17/25 22:25 30 ml QDAY PRN Administration CONSTIPATION Midodrine 10 mg 02/17/25 10:05 02/19/25 13:48 Midodrine 5 Mg Tablet PO 03/19/25 10:04 10 mg TID PRASANTH Administration Mupirocin 0 gm 02/18/25 08:00 02/19/25 13:48 Mupirocin Oint 2% 15 Gm Tube TOP 02/25/25 07:59 1 applicatio TID PRASANTH Administration Nitroglycerin 0.4 mg 02/15/25 22:26 Nitroglycerin 0.4 Mg Subl Btl #25 SL Q5MIN PRN CHEST PAIN Oseltamivir Phosphate 30 mg 02/16/25 09:00 02/19/25 09:24 Oseltamivir 30 Mg Capsule PO 02/23/25 08:59 30 mg DAILY PRASANTH Administration Pantoprazole Sodium 40 mg 02/16/25 09:00 02/19/25 09:25 Pantoprazole 40 Mg Tablet PO 03/18/25 08:59 40 mg DAILY PRASANTH Administration Pharmacy Consult 1 each 02/18/25 14:33 Pharmacy Renal Dose Adjustment 1 Ea XX 03/20/25 14:32 PRN PRN CONSULT Tamsulosin HCl 0.4 mg 02/16/25 09:00 02/19/25 09:25 Tamsulosin Hcl 0.4 Mg Capsule PO 03/18/25 08:59 0.4 mg DAILY PRASANTH Administration Plan Patient is an 88-year-old male with a past medical history of 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 Patien was admitted overnight directly into the ICU for Shock, likely cardiogenic. Cardiology consulted given worsening EF, now 10 to 15% (02/16/2025). #Acute Hypoxic Respiratory Failure, resolved #Acute on Chronic Congestive Heart Failure #CHF HFrEF 10% to 15%. #S/p SENIOR UX DEVELOPER-D #Severely reduced LV function w/ global hypokinesis & Mild to Moderate Right Venticular Enlargement #PAH, mildly elevated 35-40 Cardiomypoathy patient has a past medical ischemic cardiomyopathy with SENIOR UX DEVELOPER-D and severely reduced ejection fraction despite GDMT as outpatient. CHF exacerbation likely triggered by influenza complicated by history or myelodysplasitic syndrome with resolved neurtropenic fever. Continue to hold other GDMT and continue Lasix. Re-evaluate diuretics, consider restarting Bumex and Midodrine it Blood pressure continues to be <65 Echo (02/16/2025): Dilated cardio-myopathy.Severe left ventricular enlargement, severely reduced LV function with an estimated EF of 10 to 15% and severe global hypokinesis. Grade 2 diastolic dysfunction. Mild to moderate right ventricular enlargement with moderate RV dysfunction. RVSP mildly elevated at 35 to 40 mmHg.Severe biatrial enlargement. IVC dilated. No pericardial effusion.Moderate aortic valve sclerosis without stenosis. Moderate MR and moderate TR. Trace AI and mild PI. BNP >3280 TSH (02/16/2025): 1.78 and Free T4 (02/15/2025) 1.10 Lipid Panel: None obtained. 02/17/2025: Ins and Outs [id number]/1590/-874 66.7 kg NYHA Class: IV Plan: -Bumex 2 mg IV X 1, 02/19/2025 & Albumin, monitor Ins and Outs/Renal function -Midodrine 10 mg TID, PRN -Monitor BP >65 goal -Continue to hold Carvedilol and Spironolactone 25 mg qday -Repeat BNP and document dry weight -K>4 and Mg >2 -SpO <90%, support PRN -Daily Weights, Strict Ins and Outs, Fluid Striction (1200), Sodium Restriction 2 grams per day #History of CABG #CAD s/p Stents #History of Endocarditis Patient has a past medical history of CABG and and stents, likely hyperlipidemia. Given Pancytopenia, currently holding Aspirin. Troponin 0.039 Plan -consider lipid panel -no statins listed as home medication -Hold Aspirin -Continue to monitor for signs of chest pain #Neutropenic Fever #Leukopenia w/ neutropenia #Pneumonia, Influenza Positive #Myelodysplastic disease #Pancytopenia Patient has a past medical history of myelodysplastic disease on chemotherapy likely Vidaz, per Dr. Corona note on 01/20/2025. Diagnosed at [facility] on 02/06/2024. 02/17/2025: patient would likely benefit from Filgrastim, consider reach out to Dr. Corona once more Cocci IgM negative, Legionella Pending, Beta (1,3) D Glucan, Blood Culture 24 hrs and Urine Culture Penidng, and MRSA screen pending Plan -Transfuse products -Zosyn 02/16/2025 & Tamiflu -If condition worsens, please initiate emergent transfer to [facility] as there is a high change of patient developing a blast crisis due MDS and ANC of 0.2. *Dr. Corona has admitting privilages at [facility], contact. -Filgrastim X 1 (02/17/25) -Chemotherapy, Vidaz (outpatinet) -Dexamethasone ? likely only given briefly, consider reaching out to Dr. Corona #ESTELLA on CKD III Patient has a past medical history of chronic kidney disease likely stage III who follows Dr. Burks. ESTELLA on CKD likely secondary to poor oral intake per history taken. Likely worsening of cardio-renal function given increased vascular space with inability ot perfuse. BUN/creatinine ratio greater than 20. Monitor for intrinsic renal failure less likely as patient has been having good urine output versus worsening CKD UA noted elevated RBCs 139 and urine blood +3 02/19/2025: worsening renal function BUN 73 and Cr 2.5, still in pre-renal range. Consider Urine Electrolytes. Patient received two units of RBCs, likely worsening hydrostatic pressure and within increased strain on heart failure. Continue to follow renal function. Plan - Strict ins and outs - Renally dose medication - Avoid nephrotoxins - Consider renal consult if condition worsens, Dr. Leonard. - Consider urine electrolytes if no improvement #Hypothyroidism Past medical history of hypothyroidism levothyroxine 25 mcg. TSH (02/15/2025) 1.78 and free T4 (02/15/2025 1.10 Plan - Resume home medication levothyroxine 25 mcg #BNP Tamsulosin 0.4 consider PSA levels given positive RBCs in UA #History of GERD home medication may be protonix #Cardiogenic shock, secondary to CHF exacerbation resolved Patient off pressors Health Maintenance: Disp: Pt is currently admitted to floors for further management of cardiogenic shock, improving, cardiology consulted given CHF, HFrEF 10-15%. FEN: Cardiac Diet, fluid restricted 1500 DVT:Compression Device Code: DNR - The patient's plan was discussed with attending Dr. Jefrfey Mcmahon MD PGY1 Internal Medicine Attending Provider Attestation/Addendum I have personally seen and examined the patient separately on the above date of service and discussed the plan of care with the resident. I reviewed the resident Dr. Dinora Mcmahon consultation progress note and agree with the resident findings and plan in the note above and have also edited the documentation to reflect my findings and plan. Moises Murphy M.D. Interventional Cardiology
[2025-02-20] VITALS (13 sets, daily range): BP systolic 91–126; BP diastolic 57–74; PULSE 88–108; RESP 12–95; TEMP 36.5–37.6; O2SAT 94–95; BMI 24.0
[2025-02-20] MEDS: MIDODRINE 5 MG TABLET 10 MG PO ×3 (05:20→21:01)
[2025-02-20] MEDS: LEVOTHYROXINE SODIUM 25 MCG TABLET PO (05:20)
[2025-02-20] MEDS: MUPIROCIN OINT 2% 15 GM TUBE TOP ×3 (05:29→21:02)
[2025-02-20 05:37] LABS: Basophils # (Auto) 0.0 Thou/mm3 (0.0-0.2); Basophils % (Auto) 1 % (0-2.5); Eosinophils # (Auto) 0.0 Thou/mm3 (0.0-0.5); Eosinophils % (Auto) 2 % (0-10); Hematocrit 23.7 % (41.0-53.0); Immature Granulocytes Auto 0.03 Thou/mm3 (0.00-0.00); Lymphocytes # (Auto) 0.3 Thou/mm3 (1.0-4.8); Lymphocytes % (Auto) 36 % (10-50); Mean Corpuscular HGB Conc 34.6 g/dl (31.0-37.0); Mean Corpuscular Hemoglobin 28.7 pg (25.0-35.0); Mean Corpuscular Volume 83 fL (80-100); Monocytes # (Auto) 0.1 Thou/mm3 (0.0-0.8); Monocytes % (Auto) 8 % (0-12); Neutrophils # (Auto) 0.4 Thou/mm3 (1.8-7.7); Neutrophils % (Auto) 49 % (37-80); Nucleated Red Blood Cell # 0.00 Thou/mm3 (0.00-0.00); Nucleated Red Blood Cell % 0 /100 WBC (0); RDW Standard Deviation 49.5 fL (35.1-43.9); Red Blood Count 2.86 Miln/mm3 (4.50-5.90)
[2025-02-20 05:46] LABS: Hemoglobin 8.2 g/dL (13.5-16.0); Platelet Count 35 Thou/mm3 (140-440); White Blood Count 0.9 Thou/mm3 (3.8-10.6)
[2025-02-20 05:55] LABS: Alanine Aminotransferase 16 U/L (10-49); Albumin, Serum 2.9 gm/dL (3.4-4.8); Albumin/Globulin Ratio 0.8 (1.2-2.2); Alkaline Phosphatase 56 U/L (46-116); Anion Gap 10 (7-16); Aspartate Amino Transferase 10 U/L (0-34); BUN/Creatinine Ratio 32 Ratio (12-20); Bilirubin,Total 0.6 mg/dL (0.3-1.2); Blood Urea Nitrogen 76 mg/dL (9-23); Calcium 8.5 mg/dL (8.3-10.6); Calcium (Corrected) 9.4 mg/dL (8.5-10.1); Carbon Dioxide 23.1 mMol/L (20.0-31.0); Chloride 106 mMol/L (98-107); Creatinine (Component) 2.4 mg/dL (0.6-1.3); Estimated Creatinine Clearance 19.6 mL/min (>60); Globulin 3.7 gm/dL (2.3-3.5); Glucose 134 mg/dL (74-106); Magnesium 2.2 mg/dL (1.6-2.6); Osmolality,Calculated 302 (275-295); Potassium 3.9 mMol/L (3.4-5.1); Sodium 139 mMol/L (136-145); Total Protein 6.6 gm/dL (5.7-8.2); Vancomycin,Random 18.7 mcg/mL; eGFR 25 See Note
[2025-02-20 06:06] LABS: Slide Review Platelets confirmed
[2025-02-20 06:45] LABS: Legionella Ag, EIA, Urine* NOT DETECTED
[2025-02-20 08:00] LABS: Basophils (Manual) 4 % (0-2); Eosinophils (Manual) 7 % (0-4); Lymphocytes (Manual) 46 % (20-44); Monocytes (Manual) 11 % (2-9); Neutrophils (Manual) 32 % (50-70)
[2025-02-20] MEDS: PANTOPRAZOLE 40 MG TABLET PO (08:20)
[2025-02-20] MEDS: TAMSULOSIN HCL 0.4 MG CAPSULE PO (08:20)
[2025-02-20] MEDS: OSELTAMIVIR 30 MG CAPSULE PO (08:21)
--- NOTE | 2025-02-20 13:16 | ESPR_ITS ---
Documentation for date of: 02/20/25 Subjective Subjective Interval history: Patient seen and examined at bedside. Has no current complaints. No overnight fevers noted. Patient received Bumex x 1 and IV Albumin x1 yesterday, will give another dose today. Continues to be on reverse isolation precautions, ANC 468, improved manual diff. neutrophil count has improved, 32% Patient will receive filgrastim 300 subcutaneous daily for 3 days, will continue filgrastim until absolute neutrophil count is more than 1000. Patient is otherwise stable, will continue to monitor CBC. Exam Vital Signs Temp Pulse Resp BP Pulse Ox O2 Del Method O2 Flow Rate 98.3 F 94 20 98/57 L 95 Room Air 0 02/20/25 12:00 02/20/25 12:00 02/20/25 12:00 02/20/25 12:02/20/25 12:02/20/25 12:00 02/19/25 00:00 FiO2 25 02/16/25 06:37 Narrative Exam Physical Exam General: Awake and in no acute distress. Elderly male, conversational and chronically ill appearing. HEENT: Normocephalic, atraumatic, mucous membranes moist. Heart: Regular rate and rhythm, S3 heart sound present, systolic murmur heard loudest in the left lower sternal border. Sternotomy scars present, CULINARY SPECIALIST-D on the right side. Lungs: Clear to auscultation with no wheezing or crackles. Abdomen: Soft, nondistended, nontender, positive bowel sounds. ?No guarding or rebound tenderness. Neurologic: Alert and oriented x3, no gross neurological deficit, and patient able to move all 4 extremities. Extremities: Trace bilateral lower extremity edema. No mottling, no signs of poor perfusion. Skin: No rash or ecchymoses. Objective Labs 02/20/25 04:34 02/20/25 04:34 Labs: Laboratory Results - last 24 hr 02/16/25 02/20/25 15:10 04:34 WBC 0.9 L* RBC 2.86 L Hgb 8.2 L Hct 23.7 L MCV 83 MCH 28.7 MCHC 34.6 RDW Std Deviation 49.5 H Plt Count 35 L Neut % (Auto) 49 Lymph % (Auto) 36 [place] % (Auto) 8 Eos % (Auto) 2 Baso % (Auto) 1 Neut # (Auto) 0.4 L Lymph # (Auto) 0.3 L [place] # (Auto) 0.1 Eos # (Auto) 0.0 Baso # (Auto) 0.0 Immature Gran # (Auto) 0.03 H Absolute Nucleated RBC 0.00 Immature Gran % 3 H Neutrophils % (Manual) 32 L Monocytes % (Manual) 11 H Eosinophils % (Manual) 7 H Basophils % (Manual) 4 H Nucleated RBC % 0 Lymphocytes (Manual) 46 H Sodium 139 Potassium 3.9 Chloride 106 Carbon Dioxide 23.1 Anion Gap 10 BUN 76 H Creatinine 2.4 H Estim Creat Clear Calc 19.6 L eGFR 25 L BUN/Creatinine Ratio 32 H Glucose 134 H Calculated Osmolality 302 H Calcium 8.5 Corrected Calcium 9.4 Magnesium 2.2 Total Bilirubin 0.6 AST 10 ALT 16 Alkaline Phosphatase 56 Total Protein 6.6 Albumin 2.9 L Globulin 3.7 H Albumin/Globulin Ratio 0.8 L Random Vancomycin 18.7 Urine Legionella Ag NOT DETECTED Misc Test Result Platelets confirmed ABG Interpretation ABG results: 02/15/25 02/16/25 02/16/25 21:03 04:15 16:15 ABG pH 7.45 7.38 ABG pCO2 33 38 ABG pO2 66 L 90 D ABG HCO3 23 22 ABG O2 Saturation 95 98 ABG Base Excess -1 -3 VBG pH 7.47 VBG pCO2 33 L VBG pO2 31 VBG Base Excess 1 02/17/25 02/18/25 15:05 11:00 ABG pH ABG pCO2 ABG pO2 ABG HCO3 ABG O2 Saturation ABG Base Excess VBG pH 7.44 7.50 VBG pCO2 35 L 20 L D VBG pO2 44 177 H D VBG Base Excess 0 -7 L Quality Measures Quality Measures sepsis Current suspected stage: ruled out Possible source: pulmonary Blood cultures ordered: yes Antibiotic ordered: Yes Advance care planning discussed with:: patient Assessment & Plan Assessment Current Active Medications: Generic Name Dose Route Start Last Admin Trade Name Freq PRN Reason Stop Dose Admin Acetaminophen 650 mg 02/15/25 22:26 Acetaminophen 325 Mg Tablet PO 03/17/25 22:25 Q4HR PRN PAIN SCALE 1-3 (mild Acetaminophen 650 mg 02/15/25 22:26 Acetaminophen Supp 650 Mg Supp LA 03/17/25 22:25 Q4HR PRN PAIN SCALE 1-3 (mild Al Hydrox/Mg Hydrox/Simethicone 30 ml 02/15/25 22:26 Mg Hyd/Al Hyd/Samantha (Maalox Reg) Susp 30 Ml Udc PO 03/17/25 22:25 Q4HR PRN Heartburn or Upset Stomach Levothyroxine Sodium 25 mcg 02/17/25 06:00 02/20/25 05:20 Levothyroxine Sodium 25 Mcg Tablet PO 03/19/25 05:59 25 mcg ACBR PRASANTH Administration Magnesium Hydroxide 30 ml 02/15/25 22:26 02/16/25 13:44 Milk Of Magnesia Susp 30 Ml Udc PO 03/17/25 22:25 30 ml QDAY PRN Administration CONSTIPATION Midodrine 10 mg 02/17/25 10:05 02/20/25 05:20 Midodrine 5 Mg Tablet PO 03/19/25 10:04 10 mg TID PRASANTH Administration Mupirocin 0 gm 02/18/25 08:00 02/20/25 05:29 Mupirocin Oint 2% 15 Gm Tube TOP 02/25/25 07:59 1 applicatio TID PRASANTH Administration Nitroglycerin 0.4 mg 02/15/25 22:26 Nitroglycerin 0.4 Mg Subl Btl #25 SL Q5MIN PRN CHEST PAIN Oseltamivir Phosphate 30 mg 02/16/25 09:00 02/20/25 08:21 Oseltamivir 30 Mg Capsule PO 02/23/25 08:59 30 mg DAILY PRASANTH Administration Pantoprazole Sodium 40 mg 02/16/25 09:00 02/20/25 08:20 Pantoprazole 40 Mg Tablet PO 03/18/25 08:59 40 mg DAILY PRASANTH Administration Pharmacy Consult 1 each 02/18/25 14:33 Pharmacy Renal Dose Adjustment 1 Ea XX 03/20/25 14:32 PRN PRN CONSULT Tamsulosin HCl 0.4 mg 02/16/25 09:00 02/20/25 08:20 Tamsulosin Hcl 0.4 Mg Capsule PO 03/18/25 08:59 0.4 mg DAILY PRASANTH Administration Plan 89-year-old male with past medical history of HFrEF (now 10-15%) s/p CULINARY SPECIALIST-D (last replaced 2023), ischemic cardiomyopathy, CAD s/p CABG x4, MRSA bacteremia, endocarditis, hypertension, GERD, BPH, CKD stage IV, hypothyroidism, and 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 Patient was weaned off norepinephrine infusion and downgraded to Telemetry on 02/16/2025. #Acute decompensated chronic systolic and diastolic congestive heart failure exacerbation [EF 10-15%] #S/p CULINARY SPECIALIST?D #History of infective endocarditis secondary to CULINARY SPECIALIST-D #Cardiogenic shock secondary to CHF exacerbation BNP > 3000 on admission. Chest x-ray showed bilateral pulmonary edema and increased vascular markings. Patient is NYHA class D stage III. No need to maintain MAP greater than 65 as patient has adequate perfusion. Cap refill less than 2 seconds, extremities warm and dry and no signs of mottling. 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 Severe left ventricular enlargement, severely reduced LV function with estimated EF 10-15% and severe global hypokinesis. Mild to moderate right ventricular enlargement with moderate RV dysfunction. RVSP 35 to 40 mmHg. Severe biatrial enlargement. IVC dilated. Moderate AV sclerosis without stenosis and moderate MR and TR. 02/16 2 pm: Discontinued Levophed infusion. Patient was downgraded to Telemetry. -Cardiology consulted, appreciate recommendations -Daily weights -2G sodium restricted diet -1500 cc fluid restriction -Patient will receive another dose of IV albumin followed by Bumex today. -Continue midodrine 10 mg 3 times daily #Influenza A pneumonia #Septic shock - resolved #Neutropenic fever?resolved #MRSA nares positive On admission ANC 0.23, T 102.7F on 02/15 Patient came in and found to have 2 or more SIRS criteria and was evaluated for sepsis. Patient had fever and endorsed productive cough and chills prior to hospitalization -Continue Tamiflu 30mg po daily [Renally dosed] for 2 more days - Discontinued vancomycin and Zosyn, no growth on cultures for 24 hours - Mupirocin nasally for 5 days #History of #Normocytic anemia #Thrombocytopenia #Leukopenia with neutropenia Secondary to myelodysplastic syndrome. Patient's on chemotherapy with azacitidine and chronic PRBC infusions for symptomatic anemia. Last transfusion 3 days ago and chemotherapy 10 days ago. Hb 7.1, WBC 0.7 [ANC 0.23], PLT 21 02/15 filgrastim x1 given. 02/16 filgrastim x1 given. 02/17 filgrastim x 1 given 02/17 received 2 units PRBC and 1 unit platelets. -Will continue filgrastim 300 mcg subcutaneous daily for 3 more doses until ANC is more than 1000 -Neutropenic precautions -Dr. Corona contacted as needed for recommendations -If patient has any further episodes of fever or deteriorates, initiate emergent transfer to [facility] as there is a high chance of patient developing a blast crisis due to his MDS and ANC of 0.2. Per Dr. Corona she has admitting privileges at [facility] and will facilitate transfer if necessary. #History of CAD s/p CABG x 4 -Aspirin and antiplatelets on hold due to severe anemia and thrombocytopenia secondary to MDS requiring chronic transfusions and currently on chemotherapy with azacitidine #Acute kidney injury #History of CKD stage IIIb Baseline CR between 1.6/1.02/18-creatinine up trended to 2.5 -Renally dose medication, avoid nephrotoxic agents -Nephrology consulted, appreciate recommendations. #History of hypothyroidism TSH 1.78 -Continue medication levothyroxine 25 mcg p.o. daily Health maintenance: Dispo: Pending improvement, pending blood transfusion Diet: Cardiac, 1500 cc fluid restrict DVT ppx: SCDs GI ppx: Protonix 40mg qD IV lines: 2 pIV Central line: Right subclavian port-a-cath Arterial line: No Douglass: No Code status: FULL CODE Patient plan of care was discussed with the attending physician, Dr. Mace. Heather Sharpe PGY-1 Attending Provider Attestation/Addendum I have discussed and was present for the essential components of the history, physical examination, diagnosis, and treatment plan with the resident. I agree with the patient's care as documented by the resident and amended herein by me. Teto Mace, DO. Patient seen and evaluated this AM. No acute events overnight, heart rate in 100s, paced rhythm. Significant labs included WBC at 0.9, no real increase overnight, hemoglobin stable at 8.2, absolute neutrophil count 400, BUN 76 and a slight downtrend in creatinine 2.4 today. Considering the patient's neutrophil count and cell lines have not increased appreciably since last doses of the gastrum, we will attempt another 3 doses per oncology recommendations. Patient will also continue Tamiflu for influenza, Zosyn for previous episode of septic shock and neutropenic fever, considering the patient's ejection fraction 20%, heart failure measures ordered to include strict I's and O's, daily weights and fluid restriction. Patient also on midodrine, will continue to monitor closely. Although this document has been carefully reviewed, there may still be some phonetic and other typographical errors. These errors are purely grammatical due to imperfections in the software program and should not be construed in any way to compromise the substance of the patient's medical care during this visit.
--- NOTE | 2025-02-20 14:26 | PC.SS ---
Rounding note: pending oncology consult and white blood cell to improve. D/c plan is to return to [facility].
[2025-02-20] MEDS: ALBUMIN HUMAN 25% IVPB 12.5 GM/50 ML BTL IV (15:05)
[2025-02-20] MEDS: BUMETANIDE INJ 0.25 MG/ML VIAL 4 ML 2 MG IVP (15:27)
[2025-02-20] MEDS: FILGRASTIM INJ (ZARXIO) 300 MCG/0.5 ML SYRINGE SC (18:17)
--- NOTE | 2025-02-20 22:53 | PD.IMPROG ---
Documentation for date of: 02/20/25 Subjective Subjective Interval history: Patient seen and examined at the bedside. No new cardiac implants. Patient kidney function improving slowly with IV diuresis. Continue with Bumex 2 mg IV along with albumin infusion prior to the Bumex. Strict input output Daily weights and 2 g sodium diet. Patient continues to still have severe pancytopenia and primary team to discuss with oncology regarding further doses of filgrastim Exam Vital Signs Temp Pulse Resp BP Pulse Ox O2 Del Method O2 Flow Rate 99.3 F 99 23 H 126/74 94 L Room Air 0 02/20/25 20:00 02/20/25 21:01 02/20/25 20:00 02/20/25 21:01 02/20/25 20:00 02/20/25 20:00 02/20/25 15:49 FiO2 25 02/20/25 15:49 Narrative Exam General Appearance: Alert & Oriented X3, thin male with temporal wasting, who is lying in bed in no acute distress, on room air at spO2 97% HEENT: Skull symmetrical and atraumatic. Conjunctivae pale pink and moist. Pupils equal, round, reactive to light and accommodation (PERRL). Cardio: Normal Rate and Rhythm with S1 and S2 heart sounds. 2 no bruits on carotid auscultation. Peripheral edema, 1+ Lungs: Symmetric with good expansion. Chest and back non-tender. Decreased vesicular breath sounds. Abdomen: Non-tender, Non-distended, Normal Reactive Bowel Sounds Neuro: Alert, cooperative, oriented to person, place, and time. Speech clear. CN grossly intact. Objective Labs 02/21/25 05:07 02/21/25 05:07 Labs: Laboratory Results - last 24 hr 02/16/25 02/20/25 15:10 04:34 WBC 0.9 L* RBC 2.86 L Hgb 8.2 L Hct 23.7 L MCV 83 MCH 28.7 MCHC 34.6 RDW Std Deviation 49.5 H Plt Count 35 L Neut % (Auto) 49 Lymph % (Auto) 36 [place] % (Auto) 8 Eos % (Auto) 2 Baso % (Auto) 1 Neut # (Auto) 0.4 L Lymph # (Auto) 0.3 L [place] # (Auto) 0.1 Eos # (Auto) 0.0 Baso # (Auto) 0.0 Immature Gran # (Auto) 0.03 H Absolute Nucleated RBC 0.00 Immature Gran % 3 H Neutrophils % (Manual) 32 L Monocytes % (Manual) 11 H Eosinophils % (Manual) 7 H Basophils % (Manual) 4 H Nucleated RBC % 0 Lymphocytes (Manual) 46 H Sodium 139 Potassium 3.9 Chloride 106 Carbon Dioxide 23.1 Anion Gap 10 BUN 76 H Creatinine 2.4 H Estim Creat Clear Calc 19.6 L eGFR 25 L BUN/Creatinine Ratio 32 H Glucose 134 H Calculated Osmolality 302 H Calcium 8.5 Corrected Calcium 9.4 Magnesium 2.2 Total Bilirubin 0.6 AST 10 ALT 16 Alkaline Phosphatase 56 Total Protein 6.6 Albumin 2.9 L Globulin 3.7 H Albumin/Globulin Ratio 0.8 L Random Vancomycin 18.7 Urine Legionella Ag NOT DETECTED Misc Test Result Platelets confirmed ABG Interpretation ABG results: 02/15/25 02/16/25 02/16/25 21:03 04:15 16:15 ABG pH 7.45 7.38 ABG pCO2 33 38 ABG pO2 66 L 90 D ABG HCO3 23 22 ABG O2 Saturation 95 98 ABG Base Excess -1 -3 VBG pH 7.47 VBG pCO2 33 L VBG pO2 31 VBG Base Excess 1 02/17/25 02/18/25 15:05 11:00 ABG pH ABG pCO2 ABG pO2 ABG HCO3 ABG O2 Saturation ABG Base Excess VBG pH 7.44 7.50 VBG pCO2 35 L 20 L D VBG pO2 44 177 H D VBG Base Excess 0 -7 L Assessment & Plan A&P Narrative Patient is an 88-year-old male with a past medical history of 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 Patien was admitted overnight directly into the ICU for Shock, likely cardiogenic. Cardiology consulted given worsening EF, now 10 to 15% (02/16/2025). #Acute Hypoxic Respiratory Failure secondary to CHF exacerbation-resolved #Acute on Chronic severe systolic congestive Heart Failure exacerbation #CHF HFrEF 10% to 15%. #S/p AGRICULTURAL REAL ESTATE AGENT-D #History of endocarditis with infected leads status post AGRICULTURAL REAL ESTATE AGENT-D removal in 2019 for AGRICULTURAL REAL ESTATE AGENT-D placed in 2024 #PAH, mildly elevated 35-40 Cardiomypoathy patient has a past medical ischemic cardiomyopathy with AGRICULTURAL REAL ESTATE AGENT-D and severely reduced ejection fraction despite GDMT as outpatient. CHF exacerbation likely triggered by influenza complicated by history or myelodysplasitic syndrome with resolved neurtropenic fever. Continue to hold other GDMT and continue diuretics Echo (02/16/2025): Dilated cardio-myopathy.Severe left ventricular enlargement, severely reduced LV function with an estimated EF of 10 to 15% and severe global hypokinesis. Grade 2 diastolic dysfunction. Mild to moderate right ventricular enlargement with moderate RV dysfunction. RVSP mildly elevated at 35 to 40 mmHg.Severe biatrial enlargement. IVC dilated. No pericardial effusion.Moderate aortic valve sclerosis without stenosis. Moderate MR and moderate TR. Trace AI and mild PI. BNP >3280 TSH (02/16/2025): 1.78 and Free T4 (02/15/2025) 1.10 Lipid Panel: None obtained. 02/17/2025: Ins and Outs [id number]/1590/-874 66.7 kg NYHA Class: IV Plan: -Bumex 2 mg IV X 1, 02/20/2025 & Albumin, monitor Ins and Outs/Renal function -Midodrine 10 mg TID, PRN -Monitor BP >65 goal -Continue to hold Carvedilol and Spironolactone 25 mg qday -Repeat BNP and document dry weight -K>4 and Mg >2 -SpO <90%, support PRN -Daily Weights, Strict Ins and Outs, Fluid Striction (1200), Sodium Restriction 2 grams per day #History of CABG #CAD s/p Stents #History of Endocarditis Patient has a past medical history of CABG and and stents, likely hyperlipidemia. Given Pancytopenia, currently holding Aspirin. Troponin 0.039 Plan -consider lipid panel -no statins listed as home medication -Hold Aspirin -Continue to monitor for signs of chest pain #Neutropenic Fever #Leukopenia w/ neutropenia #Pneumonia, Influenza Positive #Myelodysplastic disease #Pancytopenia # Severe anemia Patient has a past medical history of myelodysplastic disease on chemotherapy likely Vidaz, per Dr. Corona note on 01/20/2025. Diagnosed at [facility] on 02/06/2024. 02/17/2025: patient would likely benefit from Filgrastim, consider reach out to Dr. Corona once more Cocci IgM negative, Legionella Pending, Beta (1,3) D Glucan, Blood Culture 24 hrs and Urine Culture Penidng, and MRSA screen pending Plan -Transfused 2 PRBC -Zosyn 02/16/2025 & Tamiflu -Filgrastim X 1 (02/17/25) -Chemotherapy, Vidaz (outpatinet) #ESTELLA on CKD III Patient has a past medical history of chronic kidney disease likely stage III who follows Dr. Burks. ESTELLA on CKD likely secondary to poor oral intake per history taken. Mostly cardiorenal syndrome. BUN/creatinine ratio greater than 20. Monitor for intrinsic renal failure less likely as patient has been having good urine output versus worsening CKD UA noted elevated RBCs 139 and urine blood +3 - Strict ins and outs - Renally dose medication - Avoid nephrotoxins --Continue diuresis with Bumex 2 mg IV daily along with albumin as kidney function continues to slowly improve with diuresis. - Continue to monitor renal function-creatinine is 2.4 and BUN is around 70. - If blood pressure is permissible then consider increasing the diuresis #Hypothyroidism Past medical history of hypothyroidism levothyroxine 25 mcg. TSH (02/15/2025) 1.78 and free T4 (02/15/2025 1.10 Plan - Resume home medication levothyroxine 25 mcg #BNP Tamsulosin 0.4 consider PSA levels given positive RBCs in UA #History of GERD home medication may be protonix #Cardiogenic shock, secondary to CHF exacerbation resolved Patient off pressors Health Maintenance: Disp: Pt is currently admitted to floors for further management of cardiogenic shock, improving, cardiology consulted given CHF, HFrEF 10-15%. FEN: Cardiac Diet, fluid restricted 1500 DVT:Compression Device Code: DNR Management of rest of the medical conditions as per primary team and other consultants. Thank you for the consult and allowing me to participate in the care of the patient. Cardiology will continue to follow. Moises Murphy M.D. Interventional Cardiology Time Spent With Patient Time: Total time spent is greater than 50% in coordination of care (as documented) at patient's floor/unit and/or counseling patient:
[2025-02-21] VITALS (12 sets, daily range): BP systolic 102–114; BP diastolic 59–77; PULSE 80–111; RESP 15–96; TEMP 36.2–37.1; O2SAT 91–95; BMI 23.8
[2025-02-21] MEDS: MUPIROCIN OINT 2% 15 GM TUBE TOP ×3 (05:58→21:31)
[2025-02-21] MEDS: LEVOTHYROXINE SODIUM 25 MCG TABLET PO (05:58)
[2025-02-21] MEDS: MIDODRINE 5 MG TABLET 10 MG PO ×3 (05:58→21:31)
[2025-02-21 06:21] LABS: Basophils # (Auto) 0.0 Thou/mm3 (0.0-0.2); Basophils % (Auto) 1 % (0-2.5); Eosinophils # (Auto) 0.0 Thou/mm3 (0.0-0.5); Eosinophils % (Auto) 0 % (0-10); Hematocrit 23.6 % (41.0-53.0); Immature Granulocytes Auto 0.05 Thou/mm3 (0.00-0.00); Lymphocytes # (Auto) 0.4 Thou/mm3 (1.0-4.8); Lymphocytes % (Auto) 40 % (10-50); Mean Corpuscular HGB Conc 34.7 g/dl (31.0-37.0); Mean Corpuscular Hemoglobin 28.6 pg (25.0-35.0); Mean Corpuscular Volume 82 fL (80-100); Monocytes # (Auto) 0.2 Thou/mm3 (0.0-0.8); Monocytes % (Auto) 16 % (0-12); Neutrophils # (Auto) 0.4 Thou/mm3 (1.8-7.7); Neutrophils % (Auto) 39 % (37-80); Nucleated Red Blood Cell # 0.00 Thou/mm3 (0.00-0.00); Nucleated Red Blood Cell % 0 /100 WBC (0); RDW Standard Deviation 49.1 fL (35.1-43.9); Red Blood Count 2.87 Miln/mm3 (4.50-5.90)
[2025-02-21 06:22] LABS: Hemoglobin 8.2 g/dL (13.5-16.0); Platelet Count 36 Thou/mm3 (140-440); White Blood Count 1.1 Thou/mm3 (3.8-10.6)
[2025-02-21 06:46] LABS: Alanine Aminotransferase 13 U/L (10-49); Albumin, Serum 3.0 gm/dL (3.4-4.8); Albumin/Globulin Ratio 0.8 (1.2-2.2); Alkaline Phosphatase 61 U/L (46-116); Anion Gap 10 (7-16); Aspartate Amino Transferase < 10 U/L (0-34); BUN/Creatinine Ratio 32 Ratio (12-20); Bilirubin,Total 0.7 mg/dL (0.3-1.2); Blood Urea Nitrogen 74 mg/dL (9-23); Calcium 8.8 mg/dL (8.3-10.6); Calcium (Corrected) 9.6 mg/dL (8.5-10.1); Carbon Dioxide 25.0 mMol/L (20.0-31.0); Cardiac Risk Estimate 4.7 RATIO (4.0-6.7); Chloride 106 mMol/L (98-107); Cholesterol 89 mg/dL (132-200); Creatinine (Component) 2.3 mg/dL (0.6-1.3); Estimated Creatinine Clearance 20.4 mL/min (>60); Globulin 3.7 gm/dL (2.3-3.5); Glucose 125 mg/dL (74-106); HDL Cholesterol 19 mg/dL (40-60); LDL Cholesterol,Calculated 57 mg/dL (0-130); Magnesium 2.2 mg/dL (1.6-2.6); Osmolality,Calculated 304 (275-295); Potassium 4.0 mMol/L (3.4-5.1); Sodium 141 mMol/L (136-145); Total Protein 6.7 gm/dL (5.7-8.2); Triglycerides 64 mg/dL (30-150); eGFR 27 See Note
[2025-02-21 07:05] LABS: Slide Review Platelets confirmed
[2025-02-21] MEDS: OSELTAMIVIR 30 MG CAPSULE PO (09:13)
[2025-02-21] MEDS: ACETAMINOPHEN 325 MG TABLET 650 MG PO (09:13)
[2025-02-21] MEDS: PANTOPRAZOLE 40 MG TABLET PO (09:13)
[2025-02-21] MEDS: TAMSULOSIN HCL 0.4 MG CAPSULE PO (09:13)
[2025-02-21] MEDS: FILGRASTIM INJ (ZARXIO) 300 MCG/0.5 ML SYRINGE SC (09:51)
[2025-02-21] MEDS: ALBUMIN HUMAN 25% IVPB 12.5 GM/50 ML BTL IV (10:38)
[2025-02-21] MEDS: BUMETANIDE INJ 0.25 MG/ML VIAL 4 ML 2 MG IVP (11:09)
--- NOTE | 2025-02-21 11:46 | PD.RESPRO ---
Documentation for date of: 02/21/25 Subjective Subjective Interval history: Patient seen and examined at bedside. Has no current complaints. Patient continues to have lower extremity edema, 1+ will give albumin IV x 1 followed by Bumex 2 mg x 1, 30 minutes after. Intake and output not being charted adequately, however renal function is improving. Significant improvement noted in white count, absolute neutrophil count 484, will continue with filgrastim x 3 doses, case was discussed with oncologist over the phone. Will continue Tamiflu till February 23, 2025. Patient pending improvement in ANC, will continue diuresis. Monitor in a.m. Exam Vital Signs Temp Pulse Resp BP Pulse Ox O2 Del Method O2 Flow Rate 98.0 F 92 16 110/60 91 L Room Air 0 02/21/25 08:00 02/21/25 11:09 02/21/25 08:00 02/21/25 11:09 02/21/25 08:00 02/21/25 08:00 02/21/25 08:00 FiO2 02/20/25 15:49 Narrative Exam Physical Exam General: Awake and in no acute distress. Elderly male, conversational and chronically ill appearing. HEENT: Normocephalic, atraumatic, mucous membranes moist. Heart: Regular rate and rhythm, S3 heart sound present, systolic murmur heard loudest in the left lower sternal border. Sternotomy scars present, CORPORATE FINANCIAL ANALYST-D on the right side. Lungs: Clear to auscultation with no wheezing or crackles. Abdomen: Soft, nondistended, nontender, positive bowel sounds. ?No guarding or rebound tenderness. Neurologic: Alert and oriented x3, no gross neurological deficit, and patient able to move all 4 extremities. Extremities: 1+ bilateral lower extremity edema. No mottling, no signs of poor perfusion. Skin: No rash or ecchymoses. Objective Labs 02/21/25 05:07 02/21/25 05:07 Labs: Laboratory Results - last 24 hr 02/21/25 05:07 WBC 1.1 L RBC 2.87 L Hgb 8.2 L Hct 23.6 L MCV 82 MCH 28.6 MCHC 34.7 RDW Std Deviation 49.1 H Plt Count 36 L Neut % (Auto) 39 Lymph % (Auto) 40 [place] % (Auto) 16 H Eos % (Auto) 0 Baso % (Auto) 1 Neut # (Auto) 0.4 L Lymph # (Auto) 0.4 L [place] # (Auto) 0.2 Eos # (Auto) 0.0 Baso # (Auto) 0.0 Immature Gran # (Auto) 0.05 H Absolute Nucleated RBC 0.00 Immature Gran % 5 H Nucleated RBC % 0 Sodium 141 Potassium 4.0 Chloride 106 Carbon Dioxide 25.0 Anion Gap 10 BUN 74 H Creatinine 2.3 H Estim Creat Clear Calc 20.4 L eGFR 27 L BUN/Creatinine Ratio 32 H Glucose 125 H Calculated Osmolality 304 H Calcium 8.8 Corrected Calcium 9.6 Magnesium 2.2 Total Bilirubin 0.7 AST < 10 ALT 13 Alkaline Phosphatase 61 Total Protein 6.7 Albumin 3.0 L Globulin 3.7 H Albumin/Globulin Ratio 0.8 L Triglycerides 64 Cholesterol 89 L LDL Cholesterol, Calc 57 HDL Cholesterol 19 L Cholesterol/HDL Ratio 4.7 Misc Test Result Platelets confirmed ABG Interpretation ABG results: 02/15/25 02/16/25 02/16/25 21:03 04:15 16:15 ABG pH 7.45 7.38 ABG pCO2 33 38 ABG pO2 66 L 90 D ABG HCO3 23 22 ABG O2 Saturation 95 98 ABG Base Excess -1 -3 VBG pH 7.47 VBG pCO2 33 L VBG pO2 31 VBG Base Excess 1 02/17/25 02/18/25 15:05 11:00 ABG pH ABG pCO2 ABG pO2 ABG HCO3 ABG O2 Saturation ABG Base Excess VBG pH 7.44 7.50 VBG pCO2 35 L 20 L D VBG pO2 44 177 H D VBG Base Excess 0 -7 L Quality Measures Quality Measures sepsis Current suspected stage: ruled out Possible source: pulmonary Blood cultures ordered: yes Antibiotic ordered: Yes Advance care planning discussed with:: patient Assessment & Plan Assessment Current Active Medications: Generic Name Dose Route Start Last Admin Trade Name Freq PRN Reason Stop Dose Admin Acetaminophen 650 mg 02/15/25 22:26 02/21/25 09:13 Acetaminophen 325 Mg Tablet PO 03/17/25 22:25 650 mg Q4HR PRN Administration PAIN SCALE 1-3 (mild Acetaminophen 650 mg 02/15/25 22:26 Acetaminophen Supp 650 Mg Supp ND 03/17/25 22:25 Q4HR PRN PAIN SCALE 1-3 (mild Al Hydrox/Mg Hydrox/Simethicone 30 ml 02/15/25 22:26 Mg Hyd/Al Hyd/Samantha (Maalox Reg) Susp 30 Ml Udc PO 03/17/25 22:25 Q4HR PRN Heartburn or Upset Stomach Filgrastim 300 mcg 02/20/25 17:45 02/21/25 09:51 Filgrastim Inj (Zarxio) 300 Mcg/0.5 Ml Syringe SC 02/22/25 09:01 300 mcg QDAY PRASANTH Administration Levothyroxine Sodium 25 mcg 02/17/25 06:00 02/21/25 05:58 Levothyroxine Sodium 25 Mcg Tablet PO 03/19/25 05:59 25 mcg ACBR PRASANTH Administration Magnesium Hydroxide 30 ml 02/15/25 22:26 02/16/25 13:44 Milk Of Magnesia Susp 30 Ml Udc PO 03/17/25 22:25 30 ml QDAY PRN Administration CONSTIPATION Midodrine 10 mg 02/17/25 10:05 02/21/25 05:58 Midodrine 5 Mg Tablet PO 03/19/25 10:04 10 mg TID PRASANTH Administration Mupirocin 0 gm 02/18/25 08:00 02/21/25 05:58 Mupirocin Oint 2% 15 Gm Tube TOP 02/25/25 07:59 1 applicatio TID PRASANTH Administration Nitroglycerin 0.4 mg 02/15/25 22:26 Nitroglycerin 0.4 Mg Subl Btl #25 SL Q5MIN PRN CHEST PAIN Oseltamivir Phosphate 30 mg 02/16/25 09:00 02/21/25 09:13 Oseltamivir 30 Mg Capsule PO 02/23/25 08:59 30 mg DAILY PRASANTH Administration Pantoprazole Sodium 40 mg 02/16/25 09:00 02/21/25 09:13 Pantoprazole 40 Mg Tablet PO 03/18/25 08:59 40 mg DAILY PRASANTH Administration Pharmacy Consult 1 each 02/18/25 14:33 Pharmacy Renal Dose Adjustment 1 Ea XX 03/20/25 14:32 PRN PRN CONSULT Tamsulosin HCl 0.4 mg 02/16/25 09:00 02/21/25 09:13 Tamsulosin Hcl 0.4 Mg Capsule PO 03/18/25 08:59 0.4 mg DAILY PRASANTH Administration Plan 89-year-old male with past medical history of HFrEF (now 10-15%) s/p CORPORATE FINANCIAL ANALYST-D (last replaced 2023), ischemic cardiomyopathy, CAD s/p CABG x4, MRSA bacteremia, endocarditis, hypertension, GERD, BPH, CKD stage IV, hypothyroidism, and 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 Patient was weaned off norepinephrine infusion and downgraded to Telemetry on 02/16/2025. #Acute decompensated chronic systolic and diastolic congestive heart failure exacerbation [EF 10-15%] #S/p CORPORATE FINANCIAL ANALYST?D #History of infective endocarditis secondary to CORPORATE FINANCIAL ANALYST-D #Cardiogenic shock secondary to CHF exacerbation BNP > 3000 on admission. Chest x-ray showed bilateral pulmonary edema and increased vascular markings. Patient is NYHA class D stage III. No need to maintain MAP greater than 65 as patient has adequate perfusion. Cap refill less than 2 seconds, extremities warm and dry and no signs of mottling. 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 Severe left ventricular enlargement, severely reduced LV function with estimated EF 10-15% and severe global hypokinesis. Mild to moderate right ventricular enlargement with moderate RV dysfunction. RVSP 35 to 40 mmHg. Severe biatrial enlargement. IVC dilated. Moderate AV sclerosis without stenosis and moderate MR and TR. 02/16 2 pm: Discontinued Levophed infusion. Patient was downgraded to Telemetry. -Cardiology consulted, appreciate recommendations -Daily weights -2G sodium restricted diet -1500 cc fluid restriction -Patient will receive another dose of IV albumin followed by Bumex today. -Continue midodrine 10 mg 3 times daily #Influenza A pneumonia #Septic shock - resolved #Neutropenic fever?resolved #MRSA nares positive On admission ANC 0.23, T 102.7F on 02/15 Patient came in and found to have 2 or more SIRS criteria and was evaluated for sepsis. Patient had fever and endorsed productive cough and chills prior to hospitalization -Continue Tamiflu 30mg po daily [Renally dosed] for 2 more days - Discontinued vancomycin and Zosyn, no growth on cultures for 24 hours - Mupirocin nasally for 5 days #History of #Normocytic anemia #Thrombocytopenia #Leukopenia with neutropenia Secondary to myelodysplastic syndrome. Patient's on chemotherapy with azacitidine and chronic PRBC infusions for symptomatic anemia. Last transfusion 3 days ago and chemotherapy 10 days ago. Hb 7.1, WBC 0.7 [ANC 0.23], PLT 21 02/15 filgrastim x1 given. 02/16 filgrastim x1 given. 02/17 filgrastim x 1 given 02/17 received 2 units PRBC and 1 unit platelets. 02/20 filgrastim x 1 received -Will continue filgrastim 300 mcg subcutaneous daily for another day until ANC is more than 1000 -Neutropenic precautions -Dr. Corona contacted as needed for recommendations -If patient has any further episodes of fever or deteriorates, initiate emergent transfer to [facility] as there is a high chance of patient developing a blast crisis due to his MDS and ANC of 0.2. Per Dr. Corona she has admitting privileges at [facility] and will facilitate transfer if necessary. #History of CAD s/p CABG x 4 -Aspirin and antiplatelets on hold due to severe anemia and thrombocytopenia secondary to MDS requiring chronic transfusions and currently on chemotherapy with azacitidine #Acute kidney injury #History of CKD stage IIIb Baseline CR between 1.6/1.9 02/18-creatinine up trended to 2.5 -Renally dose medication, avoid nephrotoxic agents -Nephrology consulted, appreciate recommendations. -Continue with IV diuresis #History of hypothyroidism TSH 1.78 -Continue medication levothyroxine 25 mcg p.o. daily Health maintenance: Dispo: Pending improvement, pending blood transfusion Diet: Cardiac, 1500 cc fluid restrict DVT ppx: SCDs GI ppx: Protonix 40mg qD IV lines: 2 pIV Central line: Right subclavian port-a-cath Arterial line: No [place]: No Code status: FULL CODE Patient plan of care was discussed with the attending physician, Dr. Mace. Heather Sharpe PGY-1 Attending Provider Attestation/Addendum I have discussed and was present for the essential components of the history, physical examination, diagnosis, and treatment plan with the resident. I agree with the patient's care as documented by the resident and amended herein by me. Teto Mace DO. Patient seen and evaluated this AM. No acute events overnight, vital signs stable, patient afebrile, significant labs include a WBC 1.1, slight uptrend, hemoglobin 8.2, platelet count 36, absolute neutrophil count around 460, BUN 74 and creatinine stable at 2.3. All cultures negative thus far. Per oncology direction, we have restarted a 3-day course of filgastim, will continue to monitor closely. Will continue albumin and Bumex per cardiology recommendations, patient will also continue Tamiflu, midodrine and levothyroxine. We did stop antibiotics for the patient, he has been afebrile, doing well, will add back if the patient starts to decline further but for now I think we are okay holding. Patient did receive broad-spectrum antibiotics from time of admission through 02/19. Will continue to monitor closely, hopefully the patient's cell lines will come up and can be discharged home in the next 2 to 3 days. Although this document has been carefully reviewed, there may still be some phonetic and other typographical errors. These errors are purely grammatical due to imperfections in the software program and should not be construed in any way to compromise the substance of the patient's medical care during this visit.
--- NOTE | 2025-02-21 15:54 | PC.SS ---
Per rounding meeting, pt will continue Tamiflu till February 23, 2025. Patient pending improvement in ANC, will continue diuresis. Pt suffered septic shock and per rounding meeting, pt may possibly d/c in two days. SS to f/u on progress
--- NOTE | 2025-02-21 18:56 | ESPR_ITS ---
Documentation for date of: 02/21/25 Subjective Subjective Interval history: Patient seen and examined at the bedside. No new cardiac complaints Patient kidney function improving slowly with IV diuresis. Continue with Bumex 2 mg IV along with albumin infusion prior to the Bumex. Strict input output Daily weights and 2 g sodium diet. Patient continues to still have severe pancytopenia, WBC slowly improving at 1.1 today and primary team to discuss with oncology regarding further doses of filgrastim Exam Vital Signs Temp Pulse Resp BP Pulse Ox O2 Del Method O2 Flow Rate 97.2 F 92 21 H 103/59 L 92 L Room Air 0 02/21/25 16:00 02/21/25 16:00 02/21/25 16:00 02/21/25 16:00 02/21/25 16:00 02/21/25 16:00 02/21/25 16:00 FiO2 02/20/25 15:49 Narrative Exam General Appearance: Alert & Oriented X3, thin male with temporal wasting, who is lying in bed in no acute distress, on room air at spO2 97% HEENT: Skull symmetrical and atraumatic. Conjunctivae pale pink and moist. Pupils equal, round, reactive to light and accommodation (PERRL). Cardio: Normal Rate and Rhythm with S1 and S2 heart sounds. 2 no bruits on carotid auscultation. Peripheral edema, 1+ Lungs: Symmetric with good expansion. Chest and back non-tender. Decreased vesicular breath sounds. Abdomen: Non-tender, Non-distended, Normal Reactive Bowel Sounds Neuro: Alert, cooperative, oriented to person, place, and time. Speech clear. CN grossly intact. Objective Labs 02/21/25 05:07 02/21/25 05:07 Labs: Laboratory Results - last 24 hr 02/21/25 05:07 WBC 1.1 L RBC 2.87 L Hgb 8.2 L Hct 23.6 L MCV 82 MCH 28.6 MCHC 34.7 RDW Std Deviation 49.1 H Plt Count 36 L Neut % (Auto) 39 Lymph % (Auto) 40 [place] % (Auto) 16 H Eos % (Auto) 0 Baso % (Auto) 1 Neut # (Auto) 0.4 L Lymph # (Auto) 0.4 L [place] # (Auto) 0.2 Eos # (Auto) 0.0 Baso # (Auto) 0.0 Immature Gran # (Auto) 0.05 H Absolute Nucleated RBC 0.00 Immature Gran % 5 H Nucleated RBC % 0 Sodium 141 Potassium 4.0 Chloride 106 Carbon Dioxide 25.0 Anion Gap 10 BUN 74 H Creatinine 2.3 H Estim Creat Clear Calc 20.4 L eGFR 27 L BUN/Creatinine Ratio 32 H Glucose 125 H Calculated Osmolality 304 H Calcium 8.8 Corrected Calcium 9.6 Magnesium 2.2 Total Bilirubin 0.7 AST < 10 ALT 13 Alkaline Phosphatase 61 Total Protein 6.7 Albumin 3.0 L Globulin 3.7 H Albumin/Globulin Ratio 0.8 L Triglycerides 64 Cholesterol 89 L LDL Cholesterol, Calc 57 HDL Cholesterol 19 L Cholesterol/HDL Ratio 4.7 Misc Test Result Platelets confirmed ABG Interpretation ABG results: 02/15/25 02/16/25 02/16/25 21:03 04:15 16:15 ABG pH 7.45 7.38 ABG pCO2 33 38 ABG pO2 66 L 90 D ABG HCO3 23 22 ABG O2 Saturation 95 98 ABG Base Excess -1 -3 VBG pH 7.47 VBG pCO2 33 L VBG pO2 31 VBG Base Excess 1 02/17/25 02/18/25 15:05 11:00 ABG pH ABG pCO2 ABG pO2 ABG HCO3 ABG O2 Saturation ABG Base Excess VBG pH 7.44 7.50 VBG pCO2 35 L 20 L D VBG pO2 44 177 H D VBG Base Excess 0 -7 L Assessment & Plan A&P Narrative Patient is an 88-year-old male with a past medical history of CAD multivessel disease status post stent placement, history of [place], history of CABG x 3 (2019 at [facility]), severe LV dysfunction, moderate to severe mitral regurgitation, previous history of endocarditis , Infected leads, status post SUSTAINABLE SYSTEMS ANALYST-D removal in the 2023 and new SUSTAINABLE SYSTEMS ANALYST-D placed in August 2024, CHF-ischemic, 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 Patien was admitted overnight directly into the ICU for Shock, likely cardiogenic. Cardiology consulted given worsening EF, now 10 to 15% (02/16/2025). #Acute Hypoxic Respiratory Failure secondary to CHF exacerbation-resolved #Acute on Chronic severe systolic congestive Heart Failure exacerbation #CHF HFrEF 10% to 15%. #S/p SUSTAINABLE SYSTEMS ANALYST-D #History of endocarditis with infected leads status post SUSTAINABLE SYSTEMS ANALYST-D removal in 2019 for SUSTAINABLE SYSTEMS ANALYST-D placed in 2024 #PAH, mildly elevated 35-40 Cardiomypoathy patient has a past medical ischemic cardiomyopathy with SUSTAINABLE SYSTEMS ANALYST-D and severely reduced ejection fraction despite GDMT as outpatient. CHF exacerbation likely triggered by influenza complicated by history or myelodysplasitic syndrome with resolved neurtropenic fever. Continue to hold other GDMT and continue diuretics Echo (02/16/2025): Dilated cardio-myopathy.Severe left ventricular enlargement, severely reduced LV function with an estimated EF of 10 to 15% and severe global hypokinesis. Grade 2 diastolic dysfunction. Mild to moderate right ventricular enlargement with moderate RV dysfunction. RVSP mildly elevated at 35 to 40 mmHg.Severe biatrial enlargement. IVC dilated. No pericardial effusion.Moderate aortic valve sclerosis without stenosis. Moderate MR and moderate TR. Trace AI and mild PI. BNP >3280 TSH (02/16/2025): 1.78 and Free T4 (02/15/2025) 1.10 Lipid Panel: None obtained. 02/17/2025: Ins and Outs [id number]/1590/-874 66.7 kg NYHA Class: IV Plan: -Bumex 2 mg IV X 1, 02/20/2025 & Albumin, monitor Ins and Outs/Renal function -Midodrine 10 mg TID, PRN -Monitor BP >65 goal -Continue to hold Carvedilol and Spironolactone 25 mg qday -Repeat BNP and document dry weight -K>4 and Mg >2 -SpO <90%, support PRN -Daily Weights, Strict Ins and Outs, Fluid Striction (1200), Sodium Restriction 2 grams per day #History of CABG #CAD s/p Stents #History of Endocarditis Patient has a past medical history of CABG and and stents, likely hyperlipidemia. Given Pancytopenia, currently holding Aspirin. Troponin 0.039 Plan -consider lipid panel -no statins listed as home medication -Hold Aspirin -Continue to monitor for signs of chest pain #Neutropenic Fever #Leukopenia w/ neutropenia #Pneumonia, Influenza Positive #Myelodysplastic disease #Pancytopenia # Severe anemia Patient has a past medical history of myelodysplastic disease on chemotherapy likely Vidaz, per Dr. Corona note on 01/20/2025. Diagnosed at [facility] on 02/06/2024. Cocci IgM negative, Legionella Pending, Beta (1,3) D Glucan, Blood Culture 24 hrs and Urine Culture Penidng, and MRSA screen pending Plan -Transfused 2 PRBC -Zosyn 02/16/2025 & Tamiflu -Filgrastim X 1 (02/17/25) -Chemotherapy, Vidaz (outpatinet) -Patient continues to still have severe pancytopenia, WBC slowly improving at 1.1 today and primary team to discuss with oncology regarding further doses of filgrastim #ESTELLA on CKD III Patient has a past medical history of chronic kidney disease likely stage III who follows Dr. Burks. ESTELLA on CKD likely secondary to poor oral intake per history taken. Mostly cardiorenal syndrome. BUN/creatinine ratio greater than 20. Monitor for intrinsic renal failure less likely as patient has been having good urine output versus worsening CKD UA noted elevated RBCs 139 and urine blood +3 - Strict ins and outs - Renally dose medication - Avoid nephrotoxins --Continue diuresis with Bumex 2 mg IV daily along with albumin as kidney function continues to slowly improve with diuresis. - Continue to monitor renal function-creatinine is 2.4 and BUN is around 70. - If blood pressure is permissible then consider increasing the diuresis #Hypothyroidism Past medical history of hypothyroidism levothyroxine 25 mcg. TSH (02/15/2025) 1.78 and free T4 (02/15/2025 1.10 Plan - Resume home medication levothyroxine 25 mcg #BNP Tamsulosin 0.4 consider PSA levels given positive RBCs in UA #History of GERD home medication may be protonix #Cardiogenic shock, secondary to CHF exacerbation resolved Patient off pressors Health Maintenance: Disp: Pt is currently admitted to floors for further management of cardiogenic shock, improving, cardiology consulted given CHF, HFrEF 10-15%. FEN: Cardiac Diet, fluid restricted 1500 DVT:Compression Device Code: DNR Management of rest of the medical conditions as per primary team and other consultants. Thank you for the consult and allowing me to participate in the care of the patient. Cardiology will continue to follow. Moises Murphy M.D. Interventional Cardiology Time Spent With Patient Time: Total time spent is greater than 50% in coordination of care (as documented) at patient's floor/unit and/or counseling patient:
[2025-02-22] VITALS (10 sets, daily range): BP systolic 92–107; BP diastolic 56–69; PULSE 90–111; RESP 14–30; TEMP 36.5–36.9; O2SAT 93–97; BMI 23.8
[2025-02-22] MEDS: MUPIROCIN OINT 2% 15 GM TUBE TOP ×3 (05:13→21:09)
[2025-02-22] MEDS: MIDODRINE 5 MG TABLET 10 MG PO ×3 (05:13→21:08)
[2025-02-22] MEDS: LEVOTHYROXINE SODIUM 25 MCG TABLET PO (05:13)
[2025-02-22 06:11] LABS: Basophils # (Auto) 0.0 Thou/mm3 (0.0-0.2); Basophils % (Auto) 1 % (0-2.5); Eosinophils # (Auto) 0.0 Thou/mm3 (0.0-0.5); Eosinophils % (Auto) 1 % (0-10); Hematocrit 24.5 % (41.0-53.0); Immature Granulocytes Auto 0.00 Thou/mm3 (0.00-0.00); Lymphocytes # (Auto) 0.4 Thou/mm3 (1.0-4.8); Lymphocytes % (Auto) 36 % (10-50); Mean Corpuscular HGB Conc 34.7 g/dl (31.0-37.0); Mean Corpuscular Hemoglobin 28.2 pg (25.0-35.0); Mean Corpuscular Volume 81 fL (80-100); Monocytes # (Auto) 0.1 Thou/mm3 (0.0-0.8); Monocytes % (Auto) 6 % (0-12); Neutrophils # (Auto) 0.6 Thou/mm3 (1.8-7.7); Neutrophils % (Auto) 57 % (37-80); Nucleated Red Blood Cell # 0.00 Thou/mm3 (0.00-0.00); Nucleated Red Blood Cell % 0 /100 WBC (0); RDW Standard Deviation 47.9 fL (35.1-43.9); Red Blood Count 3.01 Miln/mm3 (4.50-5.90)
[2025-02-22 06:13] LABS: Hemoglobin 8.5 g/dL (13.5-16.0); Platelet Count 38 Thou/mm3 (140-440); White Blood Count 1.0 Thou/mm3 (3.8-10.6)
[2025-02-22 06:49] LABS: Alanine Aminotransferase 12 U/L (10-49); Albumin, Serum 3.0 gm/dL (3.4-4.8); Albumin/Globulin Ratio 0.8 (1.2-2.2); Alkaline Phosphatase 63 U/L (46-116); Anion Gap 6 (7-16); Aspartate Amino Transferase < 10 U/L (0-34); BUN/Creatinine Ratio 32 Ratio (12-20); Bilirubin,Total 0.6 mg/dL (0.3-1.2); Blood Urea Nitrogen 67 mg/dL (9-23); Calcium 8.9 mg/dL (8.3-10.6); Calcium (Corrected) 9.7 mg/dL (8.5-10.1); Carbon Dioxide 24.5 mMol/L (20.0-31.0); Chloride 109 mMol/L (98-107); Creatinine (Component) 2.1 mg/dL (0.6-1.3); Estimated Creatinine Clearance 22.4 mL/min (>60); Globulin 3.7 gm/dL (2.3-3.5); Glucose 160 mg/dL (74-106); Magnesium 2.0 mg/dL (1.6-2.6); Osmolality,Calculated 299 (275-295); Potassium 3.9 mMol/L (3.4-5.1); Sodium 139 mMol/L (136-145); Total Protein 6.7 gm/dL (5.7-8.2); eGFR 30 See Note
[2025-02-22 07:07] LABS: Slide Review Platelets confirmed
[2025-02-22] MEDS: TAMSULOSIN HCL 0.4 MG CAPSULE PO (09:32)
[2025-02-22] MEDS: SENNA/DOCUSATE SOD 1 TAB TABLET PO (09:33)
[2025-02-22] MEDS: PANTOPRAZOLE 40 MG TABLET PO (09:33)
[2025-02-22] MEDS: OSELTAMIVIR 30 MG CAPSULE PO (09:33)
[2025-02-22] MEDS: FILGRASTIM INJ (ZARXIO) 300 MCG/0.5 ML SYRINGE SC (09:33)
[2025-02-22] MEDS: ALBUMIN HUMAN 25% IVPB 12.5 GM/50 ML BTL IV (11:33)
--- NOTE | 2025-02-22 11:57 | XR_ITS ---
Examination: Ultrasound soft tissue extremity, thigh Technique: Grayscale sonographic images soft tissue right thigh Date and time: February 22, 2025 1407 hrs. Indications: Redness swelling and pain soft tissue thigh abscess Findings: No cystic or solid masses noted Impression: Edema in the soft tissue but no cystic or solid mass
--- NOTE | 2025-02-22 11:59 | ESPR_ITS ---
Documentation for date of: 02/22/25 Subjective Subjective Interval history: Patient seen examined at bedside, complains of a rash on the right medial thigh. On examination likely looks like a fungal rash, possible mass collection noted. Will start on topical antifungal cream for now, ordered right upper thigh ultrasound to rule out any abscess Patient will receive third dose of filgrastim today, ANC greater than 500 this morning. Patient will receive last dose Tamiflu tomorrow evening. Will continue with IV diuresis-IV albumin followed by Bumex. Will continue to monitor patient. Exam Vital Signs Temp Pulse Resp BP Pulse Ox O2 Del Method O2 Flow Rate 98.4 F 105 H 30 H 107/69 94 L Room Air 0 02/22/25 08:00 02/22/25 08:00 02/22/25 08:00 02/22/25 08:00 02/22/25 08:00 02/22/25 08:00 02/22/25 08:00 FiO2 25 02/20/25 15:49 Narrative Exam Physical Exam General: Awake and in no acute distress. Elderly male, conversational and chronically ill appearing. HEENT: Normocephalic, atraumatic, mucous membranes moist. Heart: Regular rate and rhythm, S3 heart sound present, systolic murmur heard loudest in the left lower sternal border. Sternotomy scars present, COMPUTER LAB ASSISTANT-D on the right side. Lungs: Clear to auscultation with no wheezing or crackles. Abdomen: Soft, nondistended, nontender, positive bowel sounds. ?No guarding or rebound tenderness. Neurologic: Alert and oriented x3, no gross neurological deficit, and patient able to move all 4 extremities. Extremities: 1+ bilateral lower extremity edema. No mottling, no signs of poor perfusion. Rash noted right upper thigh medially, possible collection palpated as well. Skin: No rash or ecchymoses. Objective Labs 02/22/25 05:36 02/22/25 05:36 Labs: Laboratory Results - last 24 hr 02/22/25 05:36 WBC 1.0 L RBC 3.01 L Hgb 8.5 L Hct 24.5 L MCV 81 MCH 28.2 MCHC 34.7 RDW Std Deviation 47.9 H Plt Count 38 L Neut % (Auto) 57 Lymph % (Auto) 36 [place] % (Auto) 6 Eos % (Auto) 1 Baso % (Auto) 1 Neut # (Auto) 0.6 L Lymph # (Auto) 0.4 L [place] # (Auto) 0.1 Eos # (Auto) 0.0 Baso # (Auto) 0.0 Immature Gran # (Auto) 0.00 Absolute Nucleated RBC 0.00 Immature Gran % 0 Nucleated RBC % 0 Sodium 139 Potassium 3.9 Chloride 109 H Carbon Dioxide 24.5 Anion Gap 6 L BUN 67 H Creatinine 2.1 H Estim Creat Clear Calc 22.4 L eGFR 30 L BUN/Creatinine Ratio 32 H Glucose 160 H Calculated Osmolality 299 H Calcium 8.9 Corrected Calcium 9.7 Magnesium 2.0 Total Bilirubin 0.6 AST < 10 ALT 12 Alkaline Phosphatase 63 Total Protein 6.7 Albumin 3.0 L Globulin 3.7 H Albumin/Globulin Ratio 0.8 L Misc Test Result Platelets confirmed ABG Interpretation ABG results: 02/15/25 02/16/25 02/16/25 21:03 04:15 16:15 ABG pH 7.45 7.38 ABG pCO2 33 38 ABG pO2 66 L 90 D ABG HCO3 23 22 ABG O2 Saturation 95 98 ABG Base Excess -1 -3 VBG pH 7.47 VBG pCO2 33 L VBG pO2 31 VBG Base Excess 1 02/17/25 02/18/25 15:05 11:00 ABG pH ABG pCO2 ABG pO2 ABG HCO3 ABG O2 Saturation ABG Base Excess VBG pH 7.44 7.50 VBG pCO2 35 L 20 L D VBG pO2 44 177 H D VBG Base Excess 0 -7 L Quality Measures Quality Measures sepsis Current suspected stage: ruled out Possible source: pulmonary Blood cultures ordered: yes Antibiotic ordered: Yes Advance care planning discussed with:: patient Assessment & Plan Assessment Current Active Medications: Generic Name Dose Route Start Last Admin Trade Name Freq PRN Reason Stop Dose Admin Acetaminophen 650 mg 02/15/25 22:26 02/21/25 09:13 Acetaminophen 325 Mg Tablet PO 03/17/25 22:25 650 mg Q4HR PRN Administration PAIN SCALE 1-3 (mild Acetaminophen 650 mg 02/15/25 22:26 Acetaminophen Supp 650 Mg Supp AR 03/17/25 22:25 Q4HR PRN PAIN SCALE 1-3 (mild Al Hydrox/Mg Hydrox/Simethicone 30 ml 02/15/25 22:26 Mg Hyd/Al Hyd/Samantha (Maalox Reg) Susp 30 Ml Udc PO 03/17/25 22:25 Q4HR PRN Heartburn or Upset Stomach Clotrimazole 0 gm 02/22/25 09:00 02/22/25 09:36 Clotrimazole Cr 1% 30 Gm Tube TOP 03/24/25 08:59 Not Given BID PRASANTH Levothyroxine Sodium 25 mcg 02/17/25 06:00 02/22/25 05:13 Levothyroxine Sodium 25 Mcg Tablet PO 03/19/25 05:59 25 mcg ACBR PRASANTH Administration Magnesium Hydroxide 30 ml 02/15/25 22:26 02/16/25 13:44 Milk Of Magnesia Susp 30 Ml Udc PO 03/17/25 22:25 30 ml QDAY PRN Administration CONSTIPATION Midodrine 10 mg 02/17/25 10:05 02/22/25 05:13 Midodrine 5 Mg Tablet PO 03/19/25 10:04 10 mg TID PRASANTH Administration Mupirocin 0 gm 02/18/25 08:00 02/22/25 05:13 Mupirocin Oint 2% 15 Gm Tube TOP 02/25/25 07:59 1 applicatio TID PRASANTH Administration Oseltamivir Phosphate 30 mg 02/16/25 09:00 02/22/25 09:33 Oseltamivir 30 Mg Capsule PO 02/23/25 08:59 30 mg DAILY PRASANTH Administration Pantoprazole Sodium 40 mg 02/16/25 09:00 02/22/25 09:33 Pantoprazole 40 Mg Tablet PO 03/18/25 08:59 40 mg DAILY PRASANTH Administration Pharmacy Consult 1 each 02/18/25 14:33 Pharmacy Renal Dose Adjustment 1 Ea XX 03/20/25 14:32 PRN PRN CONSULT Sennosides 1 tab 02/22/25 09:00 02/22/25 09:33 Senna/Docusate Sod 1 Tab Tablet PO 03/24/25 08:59 1 tab QDAY PRASANTH Administration Protocol Tamsulosin HCl 0.4 mg 02/16/25 09:00 02/22/25 09:32 Tamsulosin Hcl 0.4 Mg Capsule PO 03/18/25 08:59 0.4 mg DAILY PRASANTH Administration Plan 89-year-old male with past medical history of HFrEF (now 10-15%) s/p COMPUTER LAB ASSISTANT-D (last replaced 2023), ischemic cardiomyopathy, CAD s/p CABG x4, MRSA bacteremia, endocarditis, hypertension, GERD, BPH, CKD stage IV, hypothyroidism, and 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 Patient was weaned off norepinephrine infusion and downgraded to Telemetry on 02/16/2025. #Acute decompensated chronic systolic and diastolic congestive heart failure exacerbation [EF 10-15%] #S/p COMPUTER LAB ASSISTANT?D #History of infective endocarditis secondary to COMPUTER LAB ASSISTANT-D #Cardiogenic shock secondary to CHF exacerbation BNP > 3000 on admission. Chest x-ray showed bilateral pulmonary edema and increased vascular markings. Patient is NYHA class D stage III. No need to maintain MAP greater than 65 as patient has adequate perfusion. Cap refill less than 2 seconds, extremities warm and dry and no signs of mottling. 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 Severe left ventricular enlargement, severely reduced LV function with estimated EF 10-15% and severe global hypokinesis. Mild to moderate right ventricular enlargement with moderate RV dysfunction. RVSP 35 to 40 mmHg. Severe biatrial enlargement. IVC dilated. Moderate AV sclerosis without stenosis and moderate MR and TR. 02/16 2 pm: Discontinued Levophed infusion. Patient was downgraded to Telemetry. -Cardiology consulted, appreciate recommendations -Daily weights -2G sodium restricted diet -1500 cc fluid restriction -Patient will receive another dose of IV albumin followed by Bumex today. -Continue midodrine 10 mg 3 times daily #Influenza A pneumonia #Septic shock - resolved #Neutropenic fever?resolved #MRSA nares positive On admission ANC 0.23, T 102.7F on 02/15 Patient came in and found to have 2 or more SIRS criteria and was evaluated for sepsis. Patient had fever and endorsed productive cough and chills prior to hospitalization -Continue Tamiflu 30mg po daily [Renally dosed] last dose tomorrow p.m. - Discontinued vancomycin and Zosyn, no growth on cultures for 24 hours - Mupirocin nasally for 5 days #Right thigh skin rash No rash noted on physical exam, likely consistent with a fungal rash patient was wearing wet briefs, considering underlying immunocompromise status. - Started on topical clotrimazole - Will obtain right thigh ultrasound to rule out any mass collection/abscess #History of #Normocytic anemia #Thrombocytopenia #Leukopenia with neutropenia Secondary to myelodysplastic syndrome. Patient's on chemotherapy with azacitidine and chronic PRBC infusions for symptomatic anemia. Last transfusion 3 days ago and chemotherapy 10 days ago. Hb 7.1, WBC 0.7 [ANC 0.23], PLT 21 02/15 filgrastim x1 given. 02/16 filgrastim x1 given. 02/17 filgrastim x 1 given 02/17 received 2 units PRBC and 1 unit platelets. 02/20-02/22-received 3 doses of filgrastim -Will continue filgrastim 300 mcg subcutaneous daily for another day until ANC is more than 1000 -Neutropenic precautions -Dr. Corona contacted as needed for recommendations -If patient has any further episodes of fever or deteriorates, initiate emergent transfer to [facility] as there is a high chance of patient developing a blast crisis due to his MDS and ANC of 0.2. Per Dr. Corona she has admitting privileges at [facility] and will facilitate transfer if necessary. #History of CAD s/p CABG x 4 -Aspirin and antiplatelets on hold due to severe anemia and thrombocytopenia secondary to MDS requiring chronic transfusions and currently on chemotherapy with azacitidine #Acute kidney injury #History of CKD stage IIIb Baseline CR between 1.6/1.9 02/18-creatinine up trended to 2.5 -Renally dose medication, avoid nephrotoxic agents -Nephrology consulted, appreciate recommendations. -Continue with IV diuresis #History of hypothyroidism TSH 1.78 -Continue medication levothyroxine 25 mcg p.o. daily Health maintenance: Dispo: Pending improvement ANC, IV diuresis Diet: Cardiac, 1500 cc fluid restrict DVT ppx: SCDs GI ppx: Protonix 40mg qD IV lines: 2 pIV Central line: Right subclavian port-a-cath Arterial line: No Douglass: No Code status: FULL CODE Patient plan of care was discussed with the attending physician, Dr. Mace. Heather Sharpe PGY-1 Attending Provider Attestation/Addendum I have discussed and was present for the essential components of the history, physical examination, diagnosis, and treatment plan with the resident. I agree with the patient's care as documented by the resident and amended herein by me. Teto Mace DO. Patient seen and evaluated this AM. No acute events overnight, vital signs stable, patient afebrile. Blood pressure on the softer side SBP 92/59 mmHg however patient has been running soft. WBCs at 1 today, hemoglobin 8.5, platelet count 38, absolute neutrophil count approximately 600 which is an uptrend, BUN 67 and creatinine downtrended 2.1. The patient's last dose of Neupogen was today. The patient appears to have some kind of fungal infection on the inside of his right thigh which we have started antifungal cream, will continue to monitor closely. It did feel like the area was edematous, possible subcutaneous lesion however we did obtain an ultrasound which was negative for any mass or cyst, just showed tissue edema. Will continue to monitor closely, the family was at bedside, we will also restart the patient's CPAP machine. Possible discharge tomorrow if cell counts continue to improve. Although this document has been carefully reviewed, there may still be some phonetic and other typographical errors. These errors are purely grammatical due to imperfections in the software program and should not be construed in any way to compromise the substance of the patient's medical care during this visit.
[2025-02-22] MEDS: BUMETANIDE INJ 0.25 MG/ML VIAL 4 ML 2 MG IVP (12:06)
--- NOTE | 2025-02-22 14:12 | PD.NEPHPROG ---
Documentation for date of: 02/22/25 Subjective Subjective Interval history: 88-year-old male with a past medical history of myelodysplastic syndrome currently on chemotherapy, CKD stage III/IV, coronary artery disease status post CABG and multiple PCI, HFrEF EF 10 to 15%, status post RESEARCH LEADER-D, NYHA IV, moderate to severe mitral regurgitation, previous history of endocarditis secondary to RESEARCH LEADER-D implantation, GERD, BPH. Patient was brought to emergency room from [facility] due to complaint of dyspnea low-grade fever and cough. Nephrology is consulted for ESTELLA on CKD. Pt has advanced CKD. Pt is seen and examined. Pt is doing better. Exam Vital Signs Temp Pulse Resp BP Pulse Ox O2 Del Method O2 Flow Rate 97.7 F 90 14 104/66 95 Room Air 0 02/22/25 12:00 02/22/25 13:49 02/22/25 12:00 02/22/25 13:49 02/22/25 12:00 02/22/25 12:00 02/22/25 12:00 FiO2 25 02/20/25 15:49 Narrative Exam General: no acute distress Chest : nichelle crackles Heart s1, s2, plus 1 edema GI: no tenderness Objective Labs 02/22/25 05:36 02/22/25 05:36 Labs: Laboratory Results - last 24 hr 02/22/25 05:36 WBC 1.0 L RBC 3.01 L Hgb 8.5 L Hct 24.5 L MCV 81 MCH 28.2 MCHC 34.7 RDW Std Deviation 47.9 H Plt Count 38 L Neut % (Auto) 57 Lymph % (Auto) 36 [place] % (Auto) 6 Eos % (Auto) 1 Baso % (Auto) 1 Neut # (Auto) 0.6 L Lymph # (Auto) 0.4 L [place] # (Auto) 0.1 Eos # (Auto) 0.0 Baso # (Auto) 0.0 Immature Gran # (Auto) 0.00 Absolute Nucleated RBC 0.00 Immature Gran % 0 Nucleated RBC % 0 Sodium 139 Potassium 3.9 Chloride 109 H Carbon Dioxide 24.5 Anion Gap 6 L BUN 67 H Creatinine 2.1 H Estim Creat Clear Calc 22.4 L eGFR 30 L BUN/Creatinine Ratio 32 H Glucose 160 H Calculated Osmolality 299 H Calcium 8.9 Corrected Calcium 9.7 Magnesium 2.0 Total Bilirubin 0.6 AST < 10 ALT 12 Alkaline Phosphatase 63 Total Protein 6.7 Albumin 3.0 L Globulin 3.7 H Albumin/Globulin Ratio 0.8 L Misc Test Result Platelets confirmed ABG Interpretation ABG results: 02/15/25 02/16/25 02/16/25 21:03 04:15 16:15 ABG pH 7.45 7.38 ABG pCO2 33 38 ABG pO2 66 L 90 D ABG HCO3 23 22 ABG O2 Saturation 95 98 ABG Base Excess -1 -3 VBG pH 7.47 VBG pCO2 33 L VBG pO2 31 VBG Base Excess 1 02/17/25 02/18/25 15:05 11:00 ABG pH ABG pCO2 ABG pO2 ABG HCO3 ABG O2 Saturation ABG Base Excess VBG pH 7.44 7.50 VBG pCO2 35 L 20 L D VBG pO2 44 177 H D VBG Base Excess 0 -7 L Assessment & Plan Assessment and plan (1) Acute on chronic renal failure: Status: Acute Assessment and plan: Creat is improving slowly c/w supportive care f/u as out pt after discharge (2) Influenza A: Status: Acute (3) Neutropenia with fever: Status: Acute (4) Acute respiratory failure with hypoxia: Status: Acute (5) CHF (congestive heart failure): Status: Acute
--- NOTE | 2025-02-22 15:46 | PD.IMPROG ---
Documentation for date of: 02/22/25 Subjective Subjective Interval history: Patient seen and examined at the bedside. No new cardiac complaints Patient kidney function improving slowly with IV diuresis. Continue with Bumex 2 mg IV along with albumin infusion prior to the Bumex. Can increase to Bumex IV twice daily if blood pressure permissible Strict input output Daily weights and 2 g sodium diet. Patient continues to still have severe pancytopenia, WBC slowly improving at 1.1 today and primary team to discuss with oncology regarding further doses of filgrastim Exam Vital Signs Temp Pulse Resp BP Pulse Ox O2 Del Method O2 Flow Rate 97.7 F 90 14 104/66 95 Room Air 0 02/22/25 12:00 02/22/25 13:49 02/22/25 12:00 02/22/25 13:49 02/22/25 12:00 02/22/25 12:00 02/22/25 12:00 FiO2 25 02/20/25 15:49 Objective Labs 02/22/25 05:36 02/22/25 05:36 Labs: Laboratory Results - last 24 hr 02/22/25 05:36 WBC 1.0 L RBC 3.01 L Hgb 8.5 L Hct 24.5 L MCV 81 MCH 28.2 MCHC 34.7 RDW Std Deviation 47.9 H Plt Count 38 L Neut % (Auto) 57 Lymph % (Auto) 36 [place] % (Auto) 6 Eos % (Auto) 1 Baso % (Auto) 1 Neut # (Auto) 0.6 L Lymph # (Auto) 0.4 L [place] # (Auto) 0.1 Eos # (Auto) 0.0 Baso # (Auto) 0.0 Immature Gran # (Auto) 0.00 Absolute Nucleated RBC 0.00 Immature Gran % 0 Nucleated RBC % 0 Sodium 139 Potassium 3.9 Chloride 109 H Carbon Dioxide 24.5 Anion Gap 6 L BUN 67 H Creatinine 2.1 H Estim Creat Clear Calc 22.4 L eGFR 30 L BUN/Creatinine Ratio 32 H Glucose 160 H Calculated Osmolality 299 H Calcium 8.9 Corrected Calcium 9.7 Magnesium 2.0 Total Bilirubin 0.6 AST < 10 ALT 12 Alkaline Phosphatase 63 Total Protein 6.7 Albumin 3.0 L Globulin 3.7 H Albumin/Globulin Ratio 0.8 L Misc Test Result Platelets confirmed ABG Interpretation ABG results: 02/15/25 02/16/2502/16/25 21:03 04:15 16:15 ABG pH 7.45 7.38 ABG pCO2 33 38 ABG pO2 66 L 90 D ABG HCO3 23 22 ABG O2 Saturation 95 98 ABG Base Excess -1 -3 VBG pH 7.47 VBG pCO2 33 L VBG pO2 31 VBG Base Excess 1 02/17/25 02/18/25 15:05 11:00 ABG pH ABG pCO2 ABG pO2 ABG HCO3 ABG O2 Saturation ABG Base Excess VBG pH 7.44 7.50 VBG pCO2 35 L 20 L D VBG pO2 44 177 H D VBG Base Excess 0 -7 L Assessment & Plan A&P Narrative Patient is an 88-year-old male with a past medical history of CAD multivessel disease status post stent placement, history of SC, history of CABG x 3 (2019 at [facility] [place]), severe LV dysfunction, moderate to severe mitral regurgitation, previous history of endocarditis , Infected leads, status post WAREHOUSE INSULATION WORKER-D removal in the 2023 and new WAREHOUSE INSULATION WORKER-D placed in August 2024, CHF-ischemic, 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 Patien was admitted overnight directly into the ICU for Shock, likely cardiogenic. Cardiology consulted given worsening EF, now 10 to 15% (02/16/2025). #Acute Hypoxic Respiratory Failure secondary to CHF exacerbation-resolved #Acute on Chronic severe systolic congestive Heart Failure exacerbation #CHF HFrEF 10% to 15%. #S/p WAREHOUSE INSULATION WORKER-D #History of endocarditis with infected leads status post WAREHOUSE INSULATION WORKER-D removal in 2019 for WAREHOUSE INSULATION WORKER-D placed in 2024 #PAH, mildly elevated 35-40 Cardiomypoathy patient has a past medical ischemic cardiomyopathy with WAREHOUSE INSULATION WORKER-D and severely reduced ejection fraction despite GDMT as outpatient. CHF exacerbation likely triggered by influenza complicated by history or myelodysplasitic syndrome with resolved neurtropenic fever. Continue to hold other GDMT and continue diuretics Echo (02/16/2025): Dilated cardio-myopathy.Severe left ventricular enlargement, severely reduced LV function with an estimated EF of 10 to 15% and severe global hypokinesis. Grade 2 diastolic dysfunction. Mild to moderate right ventricular enlargement with moderate RV dysfunction. RVSP mildly elevated at 35 to 40 mmHg.Severe biatrial enlargement. IVC dilated. No pericardial effusion.Moderate aortic valve sclerosis without stenosis. Moderate MR and moderate TR. Trace AI and mild PI. BNP >3280 TSH (02/16/2025): 1.78 and Free T4 (02/15/2025) 1.10 Lipid Panel: None obtained. 02/17/2025: Ins and Outs [id number]/1590/-874 66.7 kg NYHA Class: IV Plan: -Bumex 2 mg IV X 1, 02/20/2025 & Albumin, monitor Ins and Outs/Renal function -Midodrine 10 mg TID, PRN -Monitor BP >65 goal -Continue to hold Carvedilol and Spironolactone 25 mg qday -Repeat BNP and document dry weight -K>4 and Mg >2 -SpO <90%, support PRN -Daily Weights, Strict Ins and Outs, Fluid Striction (1200), Sodium Restriction 2 grams per day Patient kidney function improving slowly with IV diuresis. Continue with Bumex 2 mg IV along with albumin infusion prior to the Bumex. Can increase to Bumex IV twice daily if blood pressure permissiblem #History of CABG #CAD s/p Stents #History of Endocarditis Patient has a past medical history of CABG and and stents, likely hyperlipidemia. Given Pancytopenia, currently holding Aspirin. Troponin 0.039 Plan -consider lipid panel -no statins listed as home medication -Hold Aspirin -Continue to monitor for signs of chest pain #Neutropenic Fever #Leukopenia w/ neutropenia #Pneumonia, Influenza Positive #Myelodysplastic disease #Pancytopenia # Severe anemia Patient has a past medical history of myelodysplastic disease on chemotherapy likely Vidaz, per Dr. Corona note on 01/20/2025. Diagnosed at [facility] on 02/06/2024. Cocci IgM negative, Legionella Pending, Beta (1,3) D Glucan, Blood Culture 24 hrs and Urine Culture Penidng, and MRSA screen pending Plan -Transfused 2 PRBC -Zosyn 02/16/2025 & Tamiflu -Filgrastim X 1 (02/17/25) -Chemotherapy, Vidaz (outpatinet) -Patient continues to still have severe pancytopenia, WBC slowly improving at 1.1 today and primary team to discuss with oncology regarding further doses of filgrastim #ESTELLA on CKD III Patient has a past medical history of chronic kidney disease likely stage III who follows Dr. Burks. ESTELLA on CKD likely secondary to poor oral intake per history taken. Mostly cardiorenal syndrome. BUN/creatinine ratio greater than 20. Monitor for intrinsic renal failure less likely as patient has been having good urine output versus worsening CKD UA noted elevated RBCs 139 and urine blood +3 - Strict ins and outs - Renally dose medication - Avoid nephrotoxins --Continue diuresis with Bumex 2 mg IV daily along with albumin as kidney function continues to slowly improve with diuresis. - Continue to monitor renal function-creatinine is 2.4 and BUN is around 70. - If blood pressure is permissible then consider increasing the diuresis #Hypothyroidism Past medical history of hypothyroidism levothyroxine 25 mcg. TSH (02/15/2025) 1.78 and free T4 (02/15/2025 1.10 Plan - Resume home medication levothyroxine 25 mcg #BNP Tamsulosin 0.4 consider PSA levels given positive RBCs in UA #History of GERD home medication may be protonix #Cardiogenic shock, secondary to CHF exacerbation resolved Patient off pressors Health Maintenance: Disp: Pt is currently admitted to floors for further management of cardiogenic shock, improving, cardiology consulted given CHF, HFrEF 10-15%. FEN: Cardiac Diet, fluid restricted 1500 DVT:Compression Device Code: DNR Management of rest of the medical conditions as per primary team and other consultants. Thank you for the consult and allowing me to participate in the care of the patient. Cardiology will continue to follow. Moises Murphy M.D. Interventional Cardiology Time Spent With Patient Time: Total time spent is greater than 50% in coordination of care (as documented) at patient's floor/unit and/or counseling patient:
[2025-02-23] VITALS (11 sets, daily range): BP systolic 100–110; BP diastolic 54–68; PULSE 83–101; RESP 14–26; TEMP 36.5–37.4; O2SAT 96–98; BMI 24.5; BMI 15.0
[2025-02-23] MEDS: MIDODRINE 5 MG TABLET 10 MG PO ×3 (05:08→21:08)
[2025-02-23] MEDS: MUPIROCIN OINT 2% 15 GM TUBE TOP ×3 (05:09→21:08)
[2025-02-23] MEDS: LEVOTHYROXINE SODIUM 25 MCG TABLET PO (05:09)
[2025-02-23 06:17] LABS: Basophils # (Auto) 0.0 Thou/mm3 (0.0-0.2); Basophils % (Auto) 1 % (0-2.5); Eosinophils # (Auto) 0.0 Thou/mm3 (0.0-0.5); Eosinophils % (Auto) 2 % (0-10); Hematocrit 26.6 % (41.0-53.0); Hemoglobin 9.1 g/dL (13.5-16.0); Immature Granulocytes Auto 0.00 Thou/mm3 (0.00-0.00); Lymphocytes # (Auto) 0.5 Thou/mm3 (1.0-4.8); Lymphocytes % (Auto) 49 % (10-50); Mean Corpuscular HGB Conc 34.2 g/dl (31.0-37.0); Mean Corpuscular Hemoglobin 28.3 pg (25.0-35.0); Mean Corpuscular Volume 83 fL (80-100); Monocytes # (Auto) 0.1 Thou/mm3 (0.0-0.8); Monocytes % (Auto) 6 % (0-12); Neutrophils # (Auto) 0.5 Thou/mm3 (1.8-7.7); Neutrophils % (Auto) 43 % (37-80); Nucleated Red Blood Cell # 0.00 Thou/mm3 (0.00-0.00); Nucleated Red Blood Cell % 0 /100 WBC (0); RDW Standard Deviation 49.0 fL (35.1-43.9); Red Blood Count 3.21 Miln/mm3 (4.50-5.90)
[2025-02-23 06:43] LABS: White Blood Count 1.1 Thou/mm3 (3.8-10.6)
[2025-02-23 06:44] LABS: Alanine Aminotransferase 9 U/L (10-49); Albumin, Serum 3.0 gm/dL (3.4-4.8); Albumin/Globulin Ratio 0.8 (1.2-2.2); Alkaline Phosphatase 61 U/L (46-116); Anion Gap 7 (7-16); Aspartate Amino Transferase < 10 U/L (0-34); BUN/Creatinine Ratio 32 Ratio (12-20); Bilirubin,Total 0.6 mg/dL (0.3-1.2); Blood Urea Nitrogen 63 mg/dL (9-23); Calcium 9.3 mg/dL (8.3-10.6); Calcium (Corrected) 10.1 mg/dL (8.5-10.1); Carbon Dioxide 26.8 mMol/L (20.0-31.0); Chloride 108 mMol/L (98-107); Creatinine (Component) 2.0 mg/dL (0.6-1.3); Estimated Creatinine Clearance 23.5 mL/min (>60); Globulin 3.8 gm/dL (2.3-3.5); Glucose 124 mg/dL (74-106); Magnesium 2.0 mg/dL (1.6-2.6); Osmolality,Calculated 302 (275-295); Platelet Count 39 Thou/mm3 (140-440); Potassium 3.8 mMol/L (3.4-5.1); Sodium 142 mMol/L (136-145); Total Protein 6.8 gm/dL (5.7-8.2); eGFR 32 See Note
[2025-02-23 06:45] LABS: Slide Review Platelets confirmed
--- NOTE | 2025-02-23 07:15 | PD.RESPRO ---
Documentation for date of: 02/23/25 Subjective Subjective Interval history: No acute events overnight.?Patient seen and examined at bedside this AM.?Patient appears to be comfortable at rest, however is weak and not gotten out of bed this admission. PT is ordered. Labs and vitals were reviewed. Vitals are stable, the patient remains afebrile for the last 6 days. ANC was downtrended to 473. WBC 1.1. Creatinine is slowly improving at 2.0 with continued albumin + bumex. Patient has a right thigh skin rash for which clotrimazole has been started yesterday. Soft tissue US was done in the thigh due to mass-like area however it showed edema in the soft tissue but no cystic or solid mass. Due to ANC still being low, it was decided to consult Dr. Mace, however he deferred consultation as the patient is under care of Dr. Corona. Reached out to Dr. Corona who states that if patient has remained afebrile, and received more than 5 doses of filgrastim he may be discharged as ANC may be chronically low. Plan to d/c 02/24. Review of systems otherwise negative except what is mentioned above. Exam Vital Signs Temp Pulse Resp BP Pulse Ox O2 Del Method O2 Flow Rate 98.0 F 93 26 H 101/61 97 Room Air 0 02/23/25 04:00 02/23/25 05:08 02/23/25 04:00 02/23/25 05:08 02/23/25 04:00 02/23/25 04:00 02/23/25 04:00 FiO2 25 02/23/25 00:00 Narrative Exam Physical Exam General: Awake and in no acute distress. Elderly male, conversational and chronically ill appearing. HEENT: Normocephalic, atraumatic, mucous membranes moist. Heart: Regular rate and rhythm, S3 heart sound present, systolic murmur heard loudest in the left lower sternal border. Sternotomy scars present, MELTING FURNACE SKIMMER-D on the right side. Lungs: Clear to auscultation with no wheezing or crackles. Abdomen: Soft, nondistended, nontender, positive bowel sounds. ?No guarding or rebound tenderness. Neurologic: Alert and oriented x3, no gross neurological deficit, and patient able to move all 4 extremities. Extremities: 1+ bilateral lower extremity edema. No mottling, no signs of poor perfusion. Rash noted right upper thigh medially, possible collection palpated as well. Skin: No rash or ecchymoses. Objective Labs 02/23/25 05:32 02/23/25 05:32 Labs: Laboratory Results - last 24 hr 02/23/25 05:32 WBC 1.1 L RBC 3.21 L Hgb 9.1 L Hct 26.6 L MCV 83 MCH 28.3 MCHC 34.2 RDW Std Deviation 49.0 H Plt Count 39 L Neut % (Auto) 43 Lymph % (Auto) 49 [place] % (Auto) 6 Eos % (Auto) 2 Baso % (Auto) 1 Neut # (Auto) 0.5 L Lymph # (Auto) 0.5 L [place] # (Auto) 0.1 Eos # (Auto) 0.0 Baso # (Auto) 0.0 Immature Gran # (Auto) 0.00 Absolute Nucleated RBC 0.00 Immature Gran % 0 Nucleated RBC % 0 Sodium 142 Potassium 3.8 Chloride 108 H Carbon Dioxide 26.8 Anion Gap 7 BUN 63 H Creatinine 2.0 H Estim Creat Clear Calc 23.5 L eGFR 32 L BUN/Creatinine Ratio 32 H Glucose 124 H Calculated Osmolality 302 H Calcium 9.3 Corrected Calcium 10.1 Magnesium 2.0 Total Bilirubin 0.6 AST < 10 ALT 9 L Alkaline Phosphatase 61 Total Protein 6.8 Albumin 3.0 L Globulin 3.8 H Albumin/Globulin Ratio 0.8 L Misc Test Result Platelets confirmed ABG Interpretation ABG results: 02/15/25 02/16/25 02/16/25 21:03 04:15 16:15 ABG pH 7.45 7.38 ABG pCO2 33 38 ABG pO2 66 L 90 D ABG HCO3 23 22 ABG O2 Saturation 95 98 ABG Base Excess -1 -3 VBG pH 7.47 VBG pCO2 33 L VBG pO2 31 VBG Base Excess 1 02/17/25 02/18/25 15:05 11:00 ABG pH ABG pCO2 ABG pO2 ABG HCO3 ABG O2 Saturation ABG Base Excess VBG pH 7.44 7.50 VBG pCO2 35 L 20 L D VBG pO2 44 177 H D VBG Base Excess 0 -7 L Quality Measures Quality Measures sepsis Current suspected stage: ruled out Possible source: pulmonary Blood cultures ordered: yes Antibiotic ordered: No Advance care planning discussed with:: patient Assessment & Plan Assessment Current Active Medications: Generic Name Dose Route Start Last Admin Trade Name Freq PRN Reason Stop Dose Admin Acetaminophen 650 mg 02/15/25 22:26 02/21/25 09:13 Acetaminophen 325 Mg Tablet PO 03/17/25 22:25 650 mg Q4HR PRN Administration PAIN SCALE 1-3 (mild Acetaminophen 650 mg 02/15/25 22:26 Acetaminophen Supp 650 Mg Supp ID 03/17/25 22:25 Q4HR PRN PAIN SCALE 1-3 (mild Al Hydrox/Mg Hydrox/Simethicone 30 ml 02/15/25 22:26 Mg Hyd/Al Hyd/Samantha (Maalox Reg) Susp 30 Ml Udc PO 03/17/25 22:25 Q4HR PRN Heartburn or Upset Stomach Clotrimazole 0 gm 02/22/25 09:00 02/22/25 21:09 Clotrimazole Cr 1% 30 Gm Tube TOP 03/24/25 08:59 Not Given BID PRASANTH Levothyroxine Sodium 25 mcg 02/17/25 06:00 02/23/25 05:09 Levothyroxine Sodium 25 Mcg Tablet PO 03/19/25 05:59 25 mcg ACBR PRASANTH Administration Magnesium Hydroxide 30 ml 02/15/25 22:26 02/16/25 13:44 Milk Of Magnesia Susp 30 Ml Udc PO 03/17/25 22:25 30 ml QDAY PRN Administration CONSTIPATION Midodrine 10 mg 02/17/25 10:05 02/23/25 05:08 Midodrine 5 Mg Tablet PO 03/19/25 10:04 10 mg TID PRASANTH Administration Mupirocin 0 gm 02/18/25 08:00 02/23/25 05:09 Mupirocin Oint 2% 15 Gm Tube TOP 02/25/25 07:59 1 applicatio TID PRASANTH Administration Oseltamivir Phosphate 30 mg 02/16/25 09:00 02/22/25 09:33 Oseltamivir 30 Mg Capsule PO 02/23/25 08:59 30 mg DAILY PRASANTH Administration Pantoprazole Sodium 40 mg 02/16/25 09:00 02/22/25 09:33 Pantoprazole 40 Mg Tablet PO 03/18/25 08:59 40 mg DAILY PRASANTH Administration Pharmacy Consult 1 each 02/18/25 14:33 Pharmacy Renal Dose Adjustment 1 Ea XX 03/20/25 14:32 PRN PRN CONSULT Sennosides 1 tab 02/22/25 09:00 02/22/25 09:33 Senna/Docusate Sod 1 Tab Tablet PO 03/24/25 08:59 1 tab QDAY PRASANTH Administration Protocol Tamsulosin HCl 0.4 mg 02/16/25 09:00 02/22/25 09:32 Tamsulosin Hcl 0.4 Mg Capsule PO 03/18/25 08:59 0.4 mg DAILY PRASANTH Administration Plan 89-year-old male with past medical history of HFrEF (now 10-15%) s/p MELTING FURNACE SKIMMER-D (last replaced 2023), ischemic cardiomyopathy, CAD s/p CABG x4, MRSA bacteremia, endocarditis, hypertension, GERD, BPH, CKD stage IV, hypothyroidism, and 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 Patient was weaned off norepinephrine infusion and downgraded to Telemetry on 02/16/2025. 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 Chest x-ray showed bilateral pulmonary edema and increased vascular markings. Patient is NYHA class D stage III. No need to maintain MAP greater than 65 as patient has adequate perfusion. Cap refill less than 2 seconds, extremities warm and dry and no signs of mottling. 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 Severe left ventricular enlargement, severely reduced LV function with estimated EF 10-15% and severe global hypokinesis. Mild to moderate right ventricular enlargement with moderate RV dysfunction. RVSP 35 to 40 mmHg. Severe biatrial enlargement. IVC dilated. Moderate AV sclerosis without stenosis and moderate MR and TR. 02/16 2 pm: Discontinued Levophed infusion. Patient was downgraded to Telemetry. -Cardiology consulted, appreciate recommendations -Daily weights -2G sodium restricted diet -1500 cc fluid restriction -Patient will receive another dose of IV albumin followed by Bumex today. -Continue midodrine 10 mg 3 times daily #Influenza A pneumonia #Septic shock - resolved #Neutropenic fever ? resolved #MRSA nares positive On admission ANC 0.23, T 102.7F on 02/15 Patient came in and found to have 2 or more SIRS criteria and was evaluated for sepsis. Patient had fever and endorsed productive cough and chills prior to hospitalization - Continue Tamiflu 30mg po daily [Renally dosed] last dose tomorrow p.m. - Discontinued vancomycin and Zosyn, no growth on cultures for 24 hours - Mupirocin nasally for 5 days #Right thigh skin rash No rash noted on physical exam, likely consistent with a fungal rash patient was wearing wet briefs, considering underlying immunocompromise status. - Started on topical clotrimazole - Will obtain right thigh ultrasound to rule out any mass collection/abscess #History of #Normocytic anemia #Thrombocytopenia #Leukopenia with neutropenia Secondary to myelodysplastic syndrome. Patient's on chemotherapy with azacitidine and chronic PRBC infusions for symptomatic anemia. Last transfusion 3 days ago and chemotherapy 10 days ago. Hb 7.1, WBC 0.7 [ANC 0.23], PLT 21 02/15 filgrastim x1 given. 02/16 filgrastim x1 given. 02/17 filgrastim x 1 given 02/17 received 2 units PRBC and 1 unit platelets. 02/20-02/22-received 3 doses of filgrastim -Will continue filgrastim 300 mcg subcutaneous daily for another day until ANC is more than 1000 -Neutropenic precautions -Dr. Corona contacted as needed for recommendations -Patient is clear for discharge per Dr. Corona #History of CAD s/p CABG x 4 -Aspirin and antiplatelets on hold due to severe anemia and thrombocytopenia secondary to MDS requiring chronic transfusions and currently on chemotherapy with azacitidine #Acute kidney injury #History of CKD stage IIIb Baseline CR between 1.6/1.9 02/18-creatinine up trended to 2.5 -Renally dose medication, avoid nephrotoxic agents -Nephrology consulted, appreciate recommendations. -Continue with IV diuresis #History of hypothyroidism TSH 1.78 -Continue medication levothyroxine 25 mcg p.o. daily Health maintenance: Dispo: Pending improvement ANC, IV diuresis Diet: Cardiac, 1500 cc fluid restrict DVT ppx: SCDs GI ppx: Protonix 40mg qD IV lines: 2 pIV Central line: Right subclavian port-a-cath Arterial line: No Douglass: No Code status: FULL CODE Patient plan of care was discussed with the attending physician, Dr. Mace. Lilliana Guzman, PGY-2 Attending Provider Attestation/Addendum I have discussed and was present for the essential components of the history, physical examination, diagnosis, and treatment plan with the resident. I agree with the patient's care as documented by the resident and amended herein by me. Teto Mace, DO. Patient seen and evaluated this AM. Patient feels well, no acute events overnight, vital signs stable, patient afebrile. Blood and urine cultures all negative. Significant labs today include a slight downtrend in the total WBC, hemoglobin stable at 9, platelet count 39, neutrophils took a slight dip in the absolute count to approximately 500, BUN 63, creatinine 2. Will continue to diurese per cardiology recommendations, physical therapy has been ordered, will attempt to reach out to oncology today considering minimal increase in cell count considering now 6 doses of Neupogen, we wanted to discharge the patient when it is safe which is likely around a neutrophil count of 500, will continue Tamiflu for 10 days, I do not see the need for further antibiotics right now, the patient has not been febrile. Will appreciate oncology recommendations for dispo planning and follow-up. Of note we did hear back from oncology in the late afternoon, patient can likely be discharged tomorrow, neutrophil count and other cell counts likely chronically low, patient has remained afebrile, as long as the patient is stable otherwise we will look at discharge on 02/24 home. Although this document has been carefully reviewed, there may still be some phonetic and other typographical errors. These errors are purely grammatical due to imperfections in the software program and should not be construed in any way to compromise the substance of the patient's medical care during this visit.
[2025-02-23] MEDS: TAMSULOSIN HCL 0.4 MG CAPSULE PO (08:21)
[2025-02-23] MEDS: PANTOPRAZOLE 40 MG TABLET PO (08:21)
[2025-02-23] MEDS: SENNA/DOCUSATE SOD 1 TAB TABLET PO (08:21)
[2025-02-23] MEDS: BUMETANIDE INJ 0.25 MG/ML VIAL 4 ML 2 MG IVP (09:51)
[2025-02-23] MEDS: ALBUMIN HUMAN 25% IVPB 25 GM/100 ML BTL IV (09:53)
[2025-02-23] MEDS: CLOTRIMAZOLE CR 1% 30 GM TUBE TOP ×2 (09:54→21:09)
--- NOTE | 2025-02-23 15:23 | PC.PT ---
PT eval only. Patient is at his PLOF at this time. Patient can transfer to bedside commode with Staff Supervision.
--- NOTE | 2025-02-23 15:28 | PC.NURSE ---
1530: made aware of patient RR high 20s- low 30s, sat 98% in RA, flush face, no sob, no pain. no new order at this time.
[2025-02-23] MEDS: OSELTAMIVIR 30 MG CAPSULE PO (16:29)
--- NOTE | 2025-02-23 17:24 | PC.SS ---
Rounding Note: Nutrifill count low. Dr. Mace consulting.
--- NOTE | 2025-02-23 22:59 | ESPR_ITS ---
Documentation for date of: 02/23/25 Subjective Subjective Interval history: Patient seen and examined at the bedside. No new cardiac complaints Patient kidney function improving slowly with IV diuresis. Continue with Bumex 2 mg IV along with albumin infusion prior to the Bumex. Continue to monitor renal function-creatinine is 2.0 and BUN is around 63 - Peak Cr is 2.6 and peak BUN is 76. Strict input output Daily weights and 2 g sodium diet. Patient continues to still have severe pancytopenia, WBC slowly improving at 1.1 today and recieved filgastrim. Exam Vital Signs Temp Pulse Resp BP Pulse Ox O2 Del Method O2 Flow Rate 99.4 F 95 20 100/54 L 96 Room Air 0 02/23/25 20:30 02/23/25 21:08 02/23/25 20:30 02/23/25 21:08 02/23/25 20:30 02/23/25 20:30 02/23/25 04:00 FiO2 25 02/23/25 00:00 Narrative Exam General: Awake and in no acute distress. Elderly male, conversational and chronically ill appearing. HEENT: Normocephalic, atraumatic, mucous membranes moist. Heart: Regular rate and rhythm, S3 heart sound present, systolic murmur heard loudest in the left lower sternal border. Sternotomy scars present, DIVISION ORDER ANALYST-D on the right side. Lungs: Clear to auscultation with no wheezing or crackles. Abdomen: Soft, nondistended, nontender, positive bowel sounds. ?No guarding or rebound tenderness. Neurologic: Alert and oriented x3, no gross neurological deficit, and patient able to move all 4 extremities. Extremities: 1+ bilateral lower extremity edema. No mottling, no signs of poor perfusion. Rash noted right upper thigh medially, possible collection palpated as well. Skin: No rash or ecchymoses. Objective Labs 02/23/25 05:32 02/23/25 05:32 Labs: Laboratory Results - last 24 hr 02/23/25 05:32 WBC 1.1 L RBC 3.21 L Hgb 9.1 L Hct 26.6 L MCV 83 MCH 28.3 MCHC 34.2 RDW Std Deviation 49.0 H Plt Count 39 L Neut % (Auto) 43 Lymph % (Auto) 49 [place] % (Auto) 6 Eos % (Auto) 2 Baso % (Auto) 1 Neut # (Auto) 0.5 L Lymph # (Auto) 0.5 L [place] # (Auto) 0.1 Eos # (Auto) 0.0 Baso # (Auto) 0.0 Immature Gran # (Auto) 0.00 Absolute Nucleated RBC 0.00 Immature Gran % 0 Nucleated RBC % 0 Sodium 142 Potassium 3.8 Chloride 108 H Carbon Dioxide 26.8 Anion Gap 7 BUN 63 H Creatinine 2.0 H Estim Creat Clear Calc 23.5 L eGFR 32 L BUN/Creatinine Ratio 32 H Glucose 124 H Calculated Osmolality 302 H Calcium 9.3 Corrected Calcium 10.1 Magnesium 2.0 Total Bilirubin 0.6 AST < 10 ALT 9 L Alkaline Phosphatase 61 Total Protein 6.8 Albumin 3.0 L Globulin 3.8 H Albumin/Globulin Ratio 0.8 L Misc Test Result Platelets confirmed ABG Interpretation ABG results: 02/15/25 02/16/25 02/16/25 21:03 04:15 16:15 ABG pH 7.45 7.38 ABG pCO2 33 38 ABG pO2 66 L 90 D ABG HCO3 23 22 ABG O2 Saturation 95 98 ABG Base Excess -1 -3 VBG pH 7.47 VBG pCO2 33 L VBG pO2 31 VBG Base Excess 1 02/17/25 02/18/25 15:05 11:00 ABG pH ABG pCO2 ABG pO2 ABG HCO3 ABG O2 Saturation ABG Base Excess VBG pH 7.44 7.50 VBG pCO2 35 L 20 L D VBG pO2 44 177 H D VBG Base Excess 0 -7 L Assessment & Plan A&P Narrative Patient is an 88-year-old male with a past medical history of 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 Patien was admitted overnight directly into the ICU for Shock, likely cardiogenic. Cardiology consulted given worsening EF, now 10 to 15% (02/16/2025). #Acute Hypoxic Respiratory Failure secondary to CHF exacerbation-resolved #Acute on Chronic severe systolic congestive Heart Failure exacerbation #CHF HFrEF 10% to 15%. #S/p DIVISION ORDER ANALYST-D #History of endocarditis with infected leads status post DIVISION ORDER ANALYST-D removal in 2019 for DIVISION ORDER ANALYST-D placed in 2024 #PAH, mildly elevated 35-40 Cardiomypoathy patient has a past medical ischemic cardiomyopathy with DIVISION ORDER ANALYST-D and severely reduced ejection fraction despite GDMT as outpatient. CHF exacerbation likely triggered by influenza complicated by history or myelodysplasitic syndrome with resolved neurtropenic fever. Continue to hold other GDMT and continue diuretics Echo (02/16/2025): Dilated cardio-myopathy.Severe left ventricular enlargement, severely reduced LV function with an estimated EF of 10 to 15% and severe global hypokinesis. Grade 2 diastolic dysfunction. Mild to moderate right ventricular enlargement with moderate RV dysfunction. RVSP mildly elevated at 35 to 40 mmHg.Severe biatrial enlargement. IVC dilated. No pericardial effusion.Moderate aortic valve sclerosis without stenosis. Moderate MR and moderate TR. Trace AI and mild PI. BNP >3280 TSH (02/16/2025): 1.78 and Free T4 (02/15/2025) 1.10 Lipid Panel: None obtained. 02/17/2025: Ins and Outs [id number]/1590/-874 66.7 kg NYHA Class: IV Plan: -Bumex 2 mg IV X 1, 02/20/2025 & Albumin, monitor Ins and Outs/Renal function -Midodrine 10 mg TID, PRN -Monitor BP >65 goal -Continue to hold Carvedilol and Spironolactone 25 mg qday -Repeat BNP and document dry weight -K>4 and Mg >2 -SpO <90%, support PRN -Daily Weights, Strict Ins and Outs, Fluid Striction (1200), Sodium Restriction 2 grams per day Patient kidney function improving slowly with IV diuresis. Continue with Bumex 2 mg IV along with albumin infusion prior to the Bumex. Can increase to Bumex IV twice daily if blood pressure permissible Continue to monitor renal function-creatinine is 2.0 and BUN is around 63 - Peak Cr is 2.6 and peak BUN is 76. #History of CABG #CAD s/p Stents #History of Endocarditis Patient has a past medical history of CABG and and stents, likely hyperlipidemia. Given Pancytopenia, currently holding Aspirin. Troponin 0.039 Plan -consider lipid panel -no statins listed as home medication -Hold Aspirin -Continue to monitor for signs of chest pain #Neutropenic Fever #Leukopenia w/ neutropenia #Pneumonia, Influenza Positive #Myelodysplastic disease #Pancytopenia # Severe anemia Patient has a past medical history of myelodysplastic disease on chemotherapy likely Vidaz, per Dr. Corona note on 01/20/2025. Diagnosed at [facility] on 02/06/2024. Cocci IgM negative, Legionella Pending, Beta (1,3) D Glucan, Blood Culture 24 hrs and Urine Culture Penidng, and MRSA screen pending Plan -Transfused 2 PRBC -Zosyn 02/16/2025 & Tamiflu -Filgrastim X 1 (02/17/25) -Chemotherapy, Vidaz (outpatinet) -Patient continues to still have severe pancytopenia, WBC slowly improving at 1.1 today and recieved filgastrim. #ESTELLA on CKD III Patient has a past medical history of chronic kidney disease likely stage III who follows Dr. Burks. ESTELLA on CKD likely secondary to poor oral intake per history taken. Mostly cardiorenal syndrome. BUN/creatinine ratio greater than 20. Monitor for intrinsic renal failure less likely as patient has been having good urine output versus worsening CKD UA noted elevated RBCs 139 and urine blood +3 - Strict ins and outs - Renally dose medication - Avoid nephrotoxins --Continue diuresis with Bumex 2 mg IV daily along with albumin as kidney function continues to slowly improve with diuresis. - Continue to monitor renal function-creatinine is 2.0 and BUN is around 63 - Peak Cr is 2.6 and peak BUN is 76. - If blood pressure is permissible then consider increasing the diuresis #Hypothyroidism Past medical history of hypothyroidism levothyroxine 25 mcg. TSH (02/15/2025) 1.78 and free T4 (02/15/2025 1.10 Plan - Resume home medication levothyroxine 25 mcg #BNP Tamsulosin 0.4 consider PSA levels given positive RBCs in UA #History of GERD home medication may be protonix #Cardiogenic shock, secondary to CHF exacerbation resolved Patient off pressors Health Maintenance: Disp: Pt is currently admitted to floors for further management of cardiogenic shock, improving, cardiology consulted given CHF, HFrEF 10-15%. FEN: Cardiac Diet, fluid restricted 1500 DVT:Compression Device Code: DNR Management of rest of the medical conditions as per primary team and other consultants. Thank you for the consult and allowing me to participate in the care of the patient. Cardiology will continue to follow. Moises Murphy M.D. Interventional Cardiology Time Spent With Patient Time: Total time spent is greater than 50% in coordination of care (as documented) at patient's floor/unit and/or counseling patient:
[2025-02-24] VITALS (7 sets, daily range): BP systolic 103–118; BP diastolic 62–80; PULSE 93–103; RESP 16–33; TEMP 36.2–36.7; O2SAT 95–98; BMI 24.5
--- NOTE | 2025-02-24 05:00 | PC.NURSE ---
Pt c/o right chest pain rates pain 5/10, feels more pain when he takes a deep breath. Pt describes pain as stabbing and does not radiate. Pt refuses to take any medications at this time. Pt denies any shortness of breath, denies any nausea/vomiting. Called hospitalist, resident Dr. Singh made aware, also informed MD that last CXR was done 02/15, no new ordered received at this time.
[2025-02-24] MEDS: MUPIROCIN OINT 2% 15 GM TUBE TOP (05:27)
[2025-02-24] MEDS: MIDODRINE 5 MG TABLET 10 MG PO ×2 (05:28→13:13)
[2025-02-24] MEDS: LEVOTHYROXINE SODIUM 25 MCG TABLET PO (05:28)
[2025-02-24 06:21] LABS: Basophils # (Auto) 0.0 Thou/mm3 (0.0-0.2); Basophils % (Auto) 2 % (0-2.5); Eosinophils # (Auto) 0.1 Thou/mm3 (0.0-0.5); Eosinophils % (Auto) 4 % (0-10); Hematocrit 28.0 % (41.0-53.0); Hemoglobin 9.5 g/dL (13.5-16.0); Immature Granulocytes Auto 0.10 Thou/mm3 (0.00-0.00); Lymphocytes # (Auto) 0.6 Thou/mm3 (1.0-4.8); Lymphocytes % (Auto) 46 % (10-50); Mean Corpuscular HGB Conc 33.9 g/dl (31.0-37.0); Mean Corpuscular Hemoglobin 28.0 pg (25.0-35.0); Mean Corpuscular Volume 83 fL (80-100); Monocytes # (Auto) 0.1 Thou/mm3 (0.0-0.8); Monocytes % (Auto) 7 % (0-12); Neutrophils # (Auto) 0.4 Thou/mm3 (1.8-7.7); Neutrophils % (Auto) 34 % (37-80); Nucleated Red Blood Cell # 0.00 Thou/mm3 (0.00-0.00); Nucleated Red Blood Cell % 0 /100 WBC (0); RDW Standard Deviation 48.3 fL (35.1-43.9); Red Blood Count 3.39 Miln/mm3 (4.50-5.90)
[2025-02-24 06:41] LABS: Alanine Aminotransferase 10 U/L (10-49); Albumin, Serum 3.3 gm/dL (3.4-4.8); Albumin/Globulin Ratio 0.8 (1.2-2.2); Alkaline Phosphatase 61 U/L (46-116); Anion Gap 7 (7-16); Aspartate Amino Transferase 12 U/L (0-34); BUN/Creatinine Ratio 35 Ratio (12-20); Bilirubin,Total 0.6 mg/dL (0.3-1.2); Blood Urea Nitrogen 67 mg/dL (9-23); Calcium 9.3 mg/dL (8.3-10.6); Calcium (Corrected) 9.9 mg/dL (8.5-10.1); Carbon Dioxide 28.0 mMol/L (20.0-31.0); Chloride 106 mMol/L (98-107); Creatinine (Component) 1.9 mg/dL (0.6-1.3); Estimated Creatinine Clearance 24.7 mL/min (>60); Globulin 4.0 gm/dL (2.3-3.5); Glucose 143 mg/dL (74-106); Magnesium 2.0 mg/dL (1.6-2.6); Osmolality,Calculated 302 (275-295); Phosphorous 4.0 mg/dL (2.4-5.1); Potassium 4.3 mMol/L (3.4-5.1); Sodium 141 mMol/L (136-145); Total Protein 7.3 gm/dL (5.7-8.2); eGFR 34 See Note
[2025-02-24 07:35] LABS: Platelet Count 42 Thou/mm3 (140-440); White Blood Count 1.2 Thou/mm3 (3.8-10.6)
[2025-02-24] MEDS: TAMSULOSIN HCL 0.4 MG CAPSULE PO (09:41)
[2025-02-24] MEDS: OSELTAMIVIR 30 MG CAPSULE PO (09:41)
[2025-02-24] MEDS: PANTOPRAZOLE 40 MG TABLET PO (09:41)
[2025-02-24] MEDS: SENNA/DOCUSATE SOD 1 TAB TABLET PO (09:42)
[2025-02-24] MEDS: CLOTRIMAZOLE CR 1% 30 GM TUBE TOP (09:43)
[2025-02-24 09:49] LABS: Slide Review Platelets confirmed
--- NOTE | 2025-02-24 11:32 | PC.SS ---
Addendum entered by DIPIKA Lopez 02/24/25 11:51: Transfer nurse-Shelbi is aware of home health orders. Patient prefers [facility]. Addendum entered by DIPIKA Lopez 02/24/25 11:35: Sharonda at [facility] is aware that the patient will return today. Original Note: SS follow up: patient has d/c orders. Patient's son, Dustin Zimmerman informs he will transport the patient back to [facility] at about 12:30pm. Christel was updated.
--- NOTE | 2025-02-24 13:08 | PC.NURSE ---
son at bedside. dc now. pt and son educated on dc instructions. pt will follow up with pcp. was just waitning on son for transportation
--- NOTE | 2025-02-24 14:28 | PD.RESPRO ---
Documentation for date of: 02/24/25 Subjective Subjective Interval history: Pt is seen at bedside this morning. Vitals are stable with MO of 103/66, saturating on room air. Pt's In's/O's 1080/2075 with net positive of 995. labs are signifcant for wbc 1.2, Hgb stable at 9.5, potassium 4.3, magnesium 2.0, BUN 67, creatinine 1.9 Pt has no complains. endorses to clinical and symptomatic improvement. Pt received additional dose of bumex 2mg x1, and continues for midodrine 10mg TID for hypotension Exam Vital Signs Temp Pulse Resp BP Pulse Ox O2 Del Method O2 Flow Rate 97.5 F 93 20 107/64 96 Room Air 0 02/24/25 12:30 02/24/25 13:13 02/24/25 12:30 02/24/25 13:13 02/24/25 12:30 02/24/25 12:30 02/23/25 04:00 FiO2 02/23/25 00:00 Narrative Exam GENERAL: A&Ox3, chronically ill appearing elderly male, cooperative, Awake, Not in acute distress NEURO: no focal neurological deficits HEENT: Atraumatic, Normocephalic. mucous membranes moist. Eyes open, symmetrical, & clear HEART: Normal Heart Sounds, DIETITIAN HELPER-D on the right side. LUNGS: Clear to auscultation with no wheezing or crackles. ABDOMEN: soft, non-distended, non-tender, bowel sounds heard, no guarding or rebound tenderness SKIN: No Rash or ecchymoses EXTREMITIES: No edema, tenderness, able to move all 4 extremities, pedal pulses palpated Objective Labs 02/24/25 05:47 02/24/25 05:47 Labs: Laboratory Results - last 24 hr 02/24/25 05:47 WBC 1.2 L RBC 3.39 L Hgb 9.5 L Hct 28.0 L MCV 83 MCH 28.0 MCHC 33.9 RDW Std Deviation 48.3 H Plt Count 42 L Neut % (Auto) 34 L Lymph % (Auto) 46 Snyder % (Auto) 7 Eos % (Auto) 4 Baso % (Auto) 2 Neut # (Auto) 0.4 L Lymph # (Auto) 0.6 L Snyder # (Auto) 0.1 Eos # (Auto) 0.1 Baso # (Auto) 0.0 Immature Gran # (Auto) 0.10 H Absolute Nucleated RBC 0.00 Immature Gran % 8 H Nucleated RBC % 0 Sodium 141 Potassium 4.3 D Chloride 106 Carbon Dioxide 28.0 Anion Gap 7 BUN 67 H Creatinine 1.9 H Estim Creat Clear Calc 24.7 L eGFR 34 L BUN/Creatinine Ratio 35 H Glucose 143 H Calculated Osmolality 302 H Calcium 9.3 Corrected Calcium 9.9 Phosphorus 4.0 Magnesium 2.0 Total Bilirubin 0.6 AST 12 ALT 10 Alkaline Phosphatase 61 Total Protein 7.3 Albumin 3.3 L Globulin 4.0 H Albumin/Globulin Ratio 0.8 L Misc Test Result Platelets confirmed ABG Interpretation ABG results: 02/15/25 02/16/25 02/16/25 21:03 04:15 16:15 ABG pH 7.45 7.38 ABG pCO2 33 38 ABG pO2 66 L 90 D ABG HCO3 23 22 ABG O2 Saturation 95 98 ABG Base Excess -1 -3 VBG pH 7.47 VBG pCO2 33 L VBG pO2 31 VBG Base Excess 1 02/17/25 02/18/25 15:05 11:00 ABG pH ABG pCO2 ABG pO2 ABG HCO3 ABG O2 Saturation ABG Base Excess VBG pH 7.44 7.50 VBG pCO2 35 L 20 L D VBG pO2 44 177 H D VBG Base Excess 0 -7 L Quality Measures Quality Measures sepsis Current suspected stage: ruled out Possible source: pulmonary Blood cultures ordered: yes Antibiotic ordered: Yes Advance care planning discussed with:: patient Assessment & Plan Plan Mr. Wyatt is a 89-year-old male with past medical history of HFrEF (now 10-15%) s/p DIETITIAN HELPER-D (last replaced 2023), ischemic cardiomyopathy, CAD s/p CABG x4, MRSA bacteremia, endocarditis, hypertension, GERD, BPH, CKD stage IV, hypothyroidism, and 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 Patient was weaned off norepinephrine infusion and downgraded to Telemetry on 02/16/2025. 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 Chest x-ray showed bilateral pulmonary edema and increased vascular markings. Patient is NYHA class D stage III. DIETITIAN HELPER-D removed in 2019 dude infective endocarditis, new DIETITIAN HELPER-D placed in 02/16 TTE showed dilated cardiomyopathy. Severe left ventricular enlargement, severely reduced LV function with estimated EF 10-15% and severe global hypokinesis. Mild to moderate right ventricular enlargement with moderate RV dysfunction. RVSP 35 to 40 mmHg. Severe biatrial enlargement. IVC dilated. Moderate AV sclerosis without stenosis and moderate MR and TR. 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 02/18-creatinine up trended to 2.5 -Renally dose medication, avoid nephrotoxic agents -Nephrology Dr. Leonard is following -Continue with IV diuresis with albumin -Monitor kidney fucntion closely #Neutropenic Fever #Leukopenia w/ neutropenia #Pneumonia, Influenza Positive #Myelodysplastic disease #Pancytopenia #Severe anemia Secondary to myelodysplastic syndrome. Patient's on chemotherapy with azacitidine and chronic PRBC infusions for symptomatic anemia. -pt received adquet dosign and days of tamiflu and antibiotics During this hospitalizationg filgrastin is given x3 -Continue to follow up with Dr. Corona #History of hypothyroidism TSH on 02/15 is 1.78, FT4 is 1.10 -Continue home levothyroxine 25 mcg p.o. daily Assessment and plan discussed with my attending physician Dr. Jeffrey Ramesh ([id number])- Internal medicine resident Attending Provider Attestation/Addendum I have personally seen and examined the patient separately on the above date of service and discussed the plan of care with the resident. I reviewed the resident Dr. Henri Cox consultation progress note and agree with the resident findings and plan in the note above and have also edited the documentation to reflect my findings and plan. Moises Murphy M.D. Interventional Cardiology
--- NOTE | 2025-02-24 14:49 | ESDS_ITS ---
Planned Discharge Date 02/24/25 DS: Providers Provider Date of admission: 02/15/25 22:36 Primary care physician: Ray Gillette MD Admitting Provider: Thiago Ramesh MD Attending Provider on Admission: Celio Mace DO Consults: 02/15/25 20:18 Referral Respiratory Therapy Stat Comment: BiPAP 02/16/25 14:11 Consult to Cardiology Routine Comment: Cardiogenic shock Consulting Provider: Moises Murphy 02/18/25 07:58 Consult to Nephrology Urgent Comment: ESTELLA on CKD Consulting Provider: Demario Simpson 02/19/25 09:57 Consult to Nephrology Routine Comment: ESTELLA on CKD Consulting Provider: Ronni Leonard 02/22/25 11:15 Referral Respiratory Therapy Routine Comment: 02/23/25 04:51 Referral Physical Therapy Routine Comment: Physician Instructions: 02/23/25 14:08 Consult to Hematology Routine Comment: Pancytopenia with low ANC Consulting Provider: Emily Mace Attending Provider on DC: Celio Mace DO Discharging Provider: RESIDENT Milton DS: Diagnosis Problem List Completed Was Problem List Reviewed/Reconciled?: Yes Hospital Course Hospital Course Hospital course: Summary: Patient is a 89-year-old male with past medical history of 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 Patient was weaned off norepinephrine infusion and downgraded to Telemetry on 02/16/2025. ED course: ED vitals: BP 89/45, HR 85, RR 22, temperature 102.9F, O2 sat 92% on room air ED labs: WBC 0.7, pancytopenia, ANC 0.23, ESR 45, BNP >3280, Creatinine 1.9, Magnesium 1.2, CRP 9.4, Procalcitonin 1.98, D-Dimer 2270. CXR showed bilateral pulmonary edema and increased vascular markings. Influenza A positive. COVID/RSV negative. In the ED patient received BiPAP, Tylenol 1 g IV, Toradol 7.5 mg IV topical nitroglycerin, Morphine 2 mg IV, Lasix 80 mg IV, Duoneb, Solumedrol 125 mg IV, Levophed drip, Rocephin 1 g IV, Azithromycin 500 mg IV, and oral Tamiflu 75 mg. Reason for hospitalization: Patient was initially admitted to ICU on 02/15 for septic shock due to multifactorial etiology and neutropenic fever but was eventually downgraded to telemetry on 02/16 as was able to wean off Levophed. TTE on 02/16 showed dilated cardiomyopathy, with severe left ventricular enlargement, severely reduced LV function with estimated EF 10-15% and severe global hypokinesis. Additionally, mild to moderate right ventricular enlargement with moderate RV dysfunction, severe biatrial enlargement, IVC dilation, and moderate AV sclerosis without stenosis and moderate MR and TR. RVSP 35 to 40 mmHg. Cardiology consulted and recommended daily weights, sodium restricted diet, and fluid restriction. Was given Bumex 1 mg 1 dose, followed by scheduled IV albumin and Bumex throughout stay. Due to soft systolic pressures on 02/19, he was also started on midodrine 10 mg TID; vitals have been stable since. Patient was empirically started on IV vancomycin and Zosyn but promptly discontinued as blood cultures were negative. On admission, he was positive for influenza A and treated with renally dosed Tamiflu for 5 days (02/16-02/23). Nasal swab in ED was positive for MRSA so patient was treated with mupirocin nasally for 5 days (02/18-02/23). Patient presented with pancytopenia secondary to history of myelodysplastic syndrome whom he follows Dr. Corona for. Patient's last transfusion was 02/13 and last chemotherapy session on 02/06.Dr. Corona was contacted and per recommendations, given filgrastim daily for ANC less than 1000. Received 1 dose daily from 02/15-02/17 and 02/20-02/22. Had worsening pancytopenia on 02/17 and was also given 2 units PRBC and 1 unit platelets. WBC, Hgb, and platelet counts improved. ANC improved on several rounds of filigastrim however patient is pancytopenic at baseline and follows closely with oncology. On 02/22, patient developed fungal rash on right thigh. US was negative for abscesses and improved on topical clotrimazole. Aspirin and antiplatelets were held due to severe anemia and thrombocytopenia secondary to MDS requiring chronic transfusions and current chemotherapy with azacitidine. Patient was continued on home levothyroxine throughout stay. Discharge Recommendations: -Follow up with PCP within 3 to 5 days of discharge -Follow up with your Team Cdl Driver, Dr. Sabillon within 1 to 2 weeks of discharge from -Follow up with your Data Power Consultant, Dr. Leonard within 1 to 2 weeks of discharge from hospital -Follow up with your Roll Table Operator, Dr. Corona as soon as you can -You have completed a 10-day course of oseltamivir (Tamiflu) for influenza A -Obtain the following repeat labs within the next week: Renal Panel, Complete Blood Count -Hold aspirin due to pancytopenia, ask your Team Cdl Driver when it is safe to resume -Take midodrine 10 mg three times daily for blood pressure support. Hold if BP >140/80 -Take your BP once in the morning and once at night -If your BP is too low, < 90/60 hold your carvedilol and Entresto -Apply clotrimazole 1% cream to the right upper thigh rash twice a day for 4 weeks -Continue rest of medications as previously prescribed -Return to the ED or call EMS if symptoms return and/or worsen. CHF Instructions: - Please ensure you have a weighing scale, 2 gram sodium restriction, 2L fluid restriction - Please note your weight on the discharge paperwork prior to leaving - Every morning after you wake up and urinate, please weigh yourself, and document the date and the weight. - If your weight increases by 2 pounds in 1 day or by 5 pounds in a week, call your Team Cdl Driver. - If you notice shortness of breath, having to use more pillows to prop your head up when you sleep, waking up short of breath, clothes fitting tighter, swelling your legs, decreased urination, please call. If any symptoms are severe, go to the Emergency Department. - Avoid using medications called NSAIDs (also known as nonsteroidal anti-i nflammatory drugs), such as ibuprofen, Motrin, Aleve, Advil, naproxen. - Avoid using canned vegetables, canned soups, frozen dinners as these tend to have a lot of salt. 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 resolved #MRSA nares positive #Right thigh skin rash #History of #Normocytic anemia #Thrombocytopenia #Leukopenia with neutropenia #History of CAD s/p CABG x 4 #Acute kidney injury #History of CKD stage IIIb #History of hypothyroidism Disposition: Discharged to home health safely. Senior resident attestation: Patient evaluated and examined at the bedside, plan of care discussed with rest of the team including my attending physician, except as noted. Vicky PGY3 Time Spent with Patient Time attestation: Total time spent providing and/or coordinating discharge services: at least 30 minutes of care and coordination Time spent: Greater than 30 minutes Home Health Home Health Referral Orders: 02/24/25 08:48 Home Health Referral Routine Reason For Exam: debility Home-Bound The patient must either because of illness or injury, need the aid of supportive devices such as crutches, canes, wheelchairs, and walkers; the use of special transportation; or the assistance of another person in order to leave their place of residence; OR have a condition such that leaving his or her home is medically contraindicated. In addition, the patient also meets the following criteria: patient is normally unable to leave the home and leaving home requires considerable taxing effort. Addendum to Home Health Certification Practitioner's Certification: I certify that the patient has been under my care in the hospital and the care of attending physician (see below). We had a [id number] encounter on (see date below). My clinical findings indicate that the patient is home bound per the above criteria and the Home Health Services noted in these orders are medically necessary. The primary reason for the [id number] encounter is related to the fact that the patient requires home health services. Date Certifying Jfje-yj-Jvli Physician Encounter: 02/15/25 Physician's Name who will Assume Oversight for Services: Physician No Primary/Family [facility] [place] - Community Resources: No PT to Evaluate: Yes PT to evaluate and provide a treatmnet plan to increase patient's mobility and strength. Wound Care: No IV Therapy: No Discontinue PICC Line Once Treatment Complete: No RN Safety Evaluation: Yes RN to evaluate and create a plan of care that will produce positive outcomes. Palliative Treatment: No Palliative treatment and evaluate the need for hospice. Home Health Aide - Personal Care: No Home Health Aide to assist with any ADL's. Exam Vital Signs Temp Pulse Resp BP Pulse Ox O2 Del Method O2 Flow Rate 97.5 F 93 20 107/64 96 Room Air 0 02/24/25 12:30 02/24/25 13:13 02/24/25 12:30 02/24/25 13:13 02/24/25 12:30 02/24/25 12:30 02/23/25 04:00 FiO2 25 02/23/25 00:00 Narrative Exam Physical Exam General: Awake and in no acute distress. Elderly male, sitting up in bed and conversational. Chronically ill appearing. HEENT: Normocephalic, atraumatic, mucous membranes moist. Heart: Regular rate and rhythm, S3 heart sound present, systolic murmur heard loudest in the left lower sternal border. Sternotomy scars present, SHEET METAL CONTRACTOR-D on the right side. Lungs: Clear to auscultation with no wheezing or crackles. Abdomen: Soft, nondistended, nontender, positive bowel sounds. ?No guarding or rebound tenderness. Neurologic: Alert and oriented x3, no gross neurological deficit, and patient able to move all 4 extremities. Extremities: No lower extremity edema. No mottling, no signs of poor perfusion. Rash noted right upper thigh medially, possible collection palpated as well. Skin: No rash or ecchymoses. Discharge Plan Plan Patient Disposition: Home w/HOME HEALTH Disposition Comment: Home health physical therapy, meds assistance Patient condition on transfer: Stable Care Plan Goals: Discharge Recommendations: -Follow up with PCP within 1 week of discharge -Follow up with your Team Cdl Driver, Dr. Sabillon as soon as you can -Follow up with your Data Power Consultant, Dr. Leonard as soon as you can -Follow up with your Roll Table Operator, Dr. Corona as soon as you can -You have completed a 10-day course of oseltamivir (Tamiflu) for influenza A -Obtain the following repeat labs within the next week: Renal Panel, Complete Blood Count -Hold aspirin due to pancytopenia, ask your Team Cdl Driver when it is safe to resume -Take midodrine 10 mg three times daily for blood pressure support. Hold if BP >140/80 -Take your BP once in the morning and once at night -If your BP is too low, < 90/60 hold your carvedilol and Entresto -Apply clotrimazole 1% cream to the right upper thigh rash twice a day for 4 weeks -Continue rest of medications as previously prescribed -Return to the ED or call EMS if symptoms return and/or worsen. CHF Instructions: - Please ensure you have a weighing scale, 2 gram sodium restriction, 2L fluid restriction - Please note your weight on the discharge paperwork prior to leaving - Every morning after you wake up and urinate, please weigh yourself, and document the date and the weight. - If your weight increases by 2 pounds in 1 day or by 5 pounds in a week, call your Team Cdl Driver. - If you notice shortness of breath, having to use more pillows to prop your head up when you sleep, waking up short of breath, clothes fitting tighter, swelling your legs, decreased urination, please call. If any symptoms are severe, go to the Emergency Department. - Avoid using medications called NSAIDs (also known as nonsteroidal anti- inflammatory drugs), such as ibuprofen, Motrin, Aleve, Advil, naproxen. - Avoid using canned vegetables, canned soups, frozen dinners as these tend to have a lot of salt. Prescriptions/Referrals Prescriptions/Med Rec: New midodrine 10 mg tablet 10 mg PO TID 30 Days Qty: 90 0RF Rx Instructions: Hold if BP >140/80 clotrimazole 1 % cream 1 applic topical BID Qty: 15 0RF oseltamivir 30 mg capsule 30 mg PO QDAY 4 Days Qty: 4 0RF Continued hydroxyzine HCl 50 mg tablet 50 mg PO QID PRN (Reason: Anxiety) levothyroxine 25 mcg tablet 25 mcg PO DAILY Patient Comments: TAKE 1 TABLET BY MOUTH EVERY DAY pantoprazole 40 mg tablet,delayed release (DR/EC) 40 mg PO DAILY Patient Comments: TAKE 1 TABLET BY MOUTH EVERY DAY 30 MINUTES BEFORE BREAKFAST finasteride 5 mg tablet 5 mg PO DAILY tamsulosin 0.4 mg capsule 0.4 mg PO DAILY fluticasone propionate 50 mcg/actuation [place],Suspension 1 spray INTRANASAL BID acetaminophen [Tylenol] 325 mg tablet 650 mg PO BID PRN (Reason: pain) Qty: 14 0RF Entresto 24-26 mg tablet 0.5 tab PO BID Qty: 60 2RF carvedilol [Coreg] 3.125 mg tablet 3.125 mg PO BID Qty: 60 0RF Rx Instructions: must administer with a meal/food Held aspirin 81 mg Tablet 81 mg PO DAILY Hold Instructions: Resume on 03/03/25. Follow up with Cardiology. Hold due to pancytopenia. Referrals: Mikie Corona MD [Physician] - 03/04/25 (Follow up for MDS and pancytopenia. Repeat CBC labs.) Ronni Leonard MD [Physician] - 03/03/25 (Follow up for monitoring kidney function. Repeat renal panel labs.) Henrik Sabillon MD [Physician] - 03/02/25 (Follow up for heart failure. Aspirin is currently held, ask Dr. Sabillon when it is okay to resume.) Nain (PCP),MD Ray [Primary Care Provider] - Outpatient Orders (i.e. Home Health, Labs, Imaging): CBC (Routine) Location: None Selected Ordered By: Lilliana Guzman Renal Function Panel (Routine) Location: None Selected Ordered By: Lilliana Guzman Patient/Caregiver Discharge Instructions Discharge Activity: as per physical therapy Other Discharge Activity Instructions:: Discharge Recommendations: -Follow up with PCP within 1 week of discharge -Follow up with your Team Cdl Driver, Dr. Sabillon as soon as you can -Follow up with your Data Power Consultant, Dr. Leonard as soon as you can -Follow up with your Roll Table Operator, Dr. Corona as soon as you can -You have completed a 10-day course of oseltamivir (Tamiflu) for influenza A -Obtain the following repeat labs within the next week: Renal Panel, Complete Blood Count -Hold aspirin due to pancytopenia, ask your Team Cdl Driver when it is safe to res ume -Take midodrine 10 mg three times daily for blood pressure support. Hold if BP >140/80 -Take your BP once in the morning and once at night -If your BP is too low, < 90/60 hold your carvedilol and Entresto -Apply clotrimazole 1% cream to the right upper thigh rash twice a day for 4 weeks -Continue rest of medications as previously prescribed -Return to the ED or call EMS if symptoms return and/or worsen. CHF Instructions: - Please ensure you have a weighing scale, 2 gram sodium restriction, 2L fluid restriction - Please note your weight on the discharge paperwork prior to leaving - Every morning after you wake up and urinate, please weigh yourself, and document the date and the weight. - If your weight increases by 2 pounds in 1 day or by 5 pounds in a week, call your Team Cdl Driver. - If you notice shortness of breath, having to use more pillows to prop your head up when you sleep, waking up short of breath, clothes fitting tighter, swelling your legs, decreased urination, please call. If any symptoms are severe, go to the Emergency Department. - Avoid using medications called NSAIDs (also known as nonsteroidal anti- inflammatory drugs), such as ibuprofen, Motrin, Aleve, Advil, naproxen. - Avoid using canned vegetables, canned soups, frozen dinners as these tend to have a lot of salt. Education Materials: Neutropenia, Understanding Filgrastim, ED Magalie Skin Infection (Adult), ED Influenza (Adult), ED Viral Syndrome (Adult) Print Language: Japanese Stand Alone Forms: Ebony Award Info., Patient Portal Info Letter Discharge Order Discharge Orders: Discharge (Routine); Ordered 02/24/25 Ordered By: Parth Perry Quality Discharge Quality Measures VTE prophylaxis Attestestation MD Attestation I have discussed and was present for the essential components of the discharge history, physical examination, diagnosis, and discharge treatment plan with the resident. I agree with the patient's discharge care as documented by the resident and amended herein by me. Teto Mace DO. The patient felt subjectively well on day of discharge, WBC had improved to 1.2, hemoglobin 9.5, creatinine improved to 1.9 however neutrophils count still low at approximately 400 at time of discharge. We did consult oncology, and after 6 doses of Neupogen and still very low neutrophil count, was decided the patient could be discharged at this time as he is most likely chronically low and has been afebrile for greater than 48 hours. Patient did complete a course of antibiotics in the hospital, we will continue Tamiflu for an additional 4 days for a total 10-day course. Patient was instructed to obtain a CBC in a few days and present back to her oncologist, Dr. Harman in approximately 1 week for further evaluation. Patient was stable, afebrile, tolerating p.o. intake at time of discharge home. We did inform the patient's of plan, all questions were answered satisfactorily. The patient understood all discharge instructions, all questions were answered satisfactorily. The patient was instructed to return to the Emergency Department is symptoms worsened or persisted. Although this document has been carefully reviewed, there may still be some phonetic and other typographical errors. These errors are purely grammatical due to imperfections in the software program and should not be construed in any way to compromise the substance of the patient's medical care during this visit.
--- NOTE | 2025-02-24 18:34 | PC.CC ---
Patient information sent to [facility]. Pending start of care
--- NOTE | 2025-02-26 09:45 | PC.CC ---
Patient is booked with [facility], SOC is 02/28/25
== END 2025-02-24 13:20 | disposition home health service (06) | DRG 871 ==
LOC: SERX 21:15 → SERHOLD 22:37 → S2SX 23:29 → S2NX 02-16 21:40 → S3NX 02-24 06:41
PROVIDERS: Student in an Organized Health Care Education/Training Program; Admitting Provider Student in an Organized Health Care Education/Training Program; Emergency Provider Emergency Medicine; PCP Family Medicine; Visit Provider Student in an Organized Health Care Education/Training Program
DX: A41.89 Other specified sepsis (principal); I50.43 Acute on chronic combined systolic (congestive) and diastolic (congestive) heart failure; J96.01 Acute respiratory failure with hypoxia; J10.00 Influenza due to other identified influenza virus with unspecified type of pneumonia; R65.21 Severe sepsis with septic shock; R57.0 Cardiogenic shock; J10.01 Influenza due to other identified influenza virus with the same other identified influenza virus pneumonia; I13.0 Hypertensive heart and chronic kidney disease with heart failure and stage 1 through stage 4 chronic kidney disease, or unspecified chronic kidney disease; D61.818 Other pancytopenia; N18.4 Chronic kidney disease, stage 4 (severe); I25.810 Atherosclerosis of coronary artery bypass graft(s) without angina pectoris; N17.9 Acute kidney failure, unspecified; I42.0 Dilated cardiomyopathy; D46.9 Myelodysplastic syndrome, unspecified; I27.29 Other secondary pulmonary hypertension; I50.82 Biventricular heart failure; Z95.810 Presence of automatic (implantable) cardiac defibrillator; Z87.891 Personal history of nicotine dependence; D70.9 Neutropenia, unspecified; Z95.1 Presence of aortocoronary bypass graft; I25.10 Atherosclerotic heart disease of native coronary artery without angina pectoris; D63.0 Anemia in neoplastic disease; D69.59 Other secondary thrombocytopenia; E03.9 Hypothyroidism, unspecified; E78.5 Hyperlipidemia, unspecified; E83.42 Hypomagnesemia; E86.0 Dehydration; I25.2 Old myocardial infarction; I25.5 Ischemic cardiomyopathy; N40.0 Benign prostatic hyperplasia without lower urinary tract symptoms; R50.81 Fever presenting with conditions classified elsewhere; Z66 Do not resuscitate; Z78.9 Other specified health status; Z79.890 Hormone replacement therapy; I35.8 Other nonrheumatic aortic valve disorders; I08.1 Rheumatic disorders of both mitral and tricuspid valves; B36.9 Superficial mycosis, unspecified; Z79.899 Other long term (current) drug therapy; Z86.79 Personal history of other diseases of the circulatory system; Z95.5 Presence of coronary angioplasty implant and graft; I27.22 Pulmonary hypertension due to left heart disease
CPT/HCPCS: 36415; 36600; 71045; 76882; 80048; 80053; 80061; 80069; 80076; 80202; 81001; 82010; 82248; 82436; 82570; 82803; 83605; 83735; 83880; 84100; 84133; 84145; 84300; 84439; 84443; 84484; 85014; 85018; 85025; 85049; 85379; 85610; 85652; 85730; 86140; 86331; 86635; 86850; 86900; 86901; 86923; 86965; 87040; 87081; 87086; 87400; 87449; 87634; 87811; 93005; 93306; 94640; 94660; 96365; 96367; 96375; 97162; 99291; A9270; J0131; J0456; J0696; J1938; J2543; J2919; J3370; J3475; J3490; J7050; J7999; P9035; P9040; P9047; Q5101

== ENCOUNTER 2025-03-04 11:07 | Outpatient (RCR) | payer MEDICARE, BC, SELFPAY ==
[2025-03-03 11:24] LABS: Basophils # (Auto) 0.0 Thou/mm3 (0.0-0.2); Basophils % (Auto) 1 % (0-2.5); Eosinophils # (Auto) 0.0 Thou/mm3 (0.0-0.5); Eosinophils % (Auto) 6 % (0-10); Hematocrit 20.8 % (41.0-53.0); Immature Granulocytes Auto 0.00 Thou/mm3 (0.00-0.00); Lymphocytes # (Auto) 0.5 Thou/mm3 (1.0-4.8); Lymphocytes % (Auto) 64 % (10-50); Mean Corpuscular HGB Conc 32.7 g/dl (31.0-37.0); Mean Corpuscular Hemoglobin 27.9 pg (25.0-35.0); Mean Corpuscular Volume 85 fL (80-100); Monocytes # (Auto) 0.0 Thou/mm3 (0.0-0.8); Monocytes % (Auto) 4 % (0-12); Neutrophils # (Auto) 0.2 Thou/mm3 (1.8-7.7); Neutrophils % (Auto) 25 % (37-80); Nucleated Red Blood Cell # 0.00 Thou/mm3 (0.00-0.00); Nucleated Red Blood Cell % 0 /100 WBC (0); RDW Standard Deviation 49.0 fL (35.1-43.9); Red Blood Count 2.44 Miln/mm3 (4.50-5.90)
[2025-03-03 11:32] LABS: Alanine Aminotransferase 10 U/L (10-49); Albumin, Serum 3.0 gm/dL (3.4-4.8); Albumin/Globulin Ratio 0.7 (1.2-2.2); Alkaline Phosphatase 62 U/L (46-116); Anion Gap 9 (7-16); Aspartate Amino Transferase 10 U/L (0-34); BUN/Creatinine Ratio 35 Ratio (12-20); Bilirubin,Total 0.5 mg/dL (0.3-1.2); Blood Urea Nitrogen 85 mg/dL (9-23); Calcium 8.7 mg/dL (8.3-10.6); Calcium (Corrected) 9.5 mg/dL (8.5-10.1); Carbon Dioxide 24.5 mMol/L (20.0-31.0); Chloride 108 mMol/L (98-107); Creatinine (Component) 2.4 mg/dL (0.6-1.3); Globulin 4.4 gm/dL (2.3-3.5); Glucose 201 mg/dL (74-106); Osmolality,Calculated 313 (275-295); Potassium 4.6 mMol/L (3.4-5.1); Sodium 141 mMol/L (136-145); Total Protein 7.4 gm/dL (5.7-8.2); eGFR 25 See Note
[2025-03-03 12:00] LABS: Platelet Count 39 Thou/mm3 (140-440)
[2025-03-03 12:01] LABS: Hemoglobin 6.8 g/dL (13.5-16.0); White Blood Count 0.7 Thou/mm3 (3.8-10.6)
[2025-03-03 16:55] LABS: LDH (Lactate Dehydrogenase) 132 U/L (120-246)
[2025-03-03 17:12] LABS: Path Review Blood Smear Sent to Pathologist; Slide Review Platelets confirmed
[2025-03-09 09:41] LABS: Haptoglobin* 220 mg/dL (43-212)
== END 2025-03-26 23:59 | disposition home or self-care (01) ==
LOC: SCTC 11:07
PROVIDERS: PCP Family Medicine; Referring Provider Internal Medicine Hematology & Oncology; Visit Provider Internal Medicine Hematology & Oncology
DX: D46.9 Myelodysplastic syndrome, unspecified (principal)
CPT/HCPCS: 36415; 36430; 80053; 83010; 83615; 85025; 86850; 86900; 86901; 86923; A4216; J1642; J2704; J3010; J3490; J7040; P9016; J7999

== ENCOUNTER 2025-03-06 16:21 | Inpatient (IN) | payer MEDICARE, BC, SELFPAY ==
[2025-03-06 16:30] VITALS: BP 100/56; BP 93/53; PULSE 70; RESP 20; TEMP 36.9; O2SAT 96
[2025-03-06 16:34] VITALS: PULSE 82; RESP 18; O2SAT 98; BMI 21.9
--- NOTE | 2025-03-06 16:51 | XR_ITS ---
Examination: CT right lower leg, without contrast. 2-D sagittal reconstructions. 2-D coronal reconstructions. 3-D reconstructions. Date and time of exam:March 06, 2025 1734 hours INDICATIONS: Inner right thigh redness and swelling beginning several days ago CTDI: vol (mGy):9.58 DLP: (mGycm):1052. Technique: Multiple 1.25 mm axial sections of the right lower extremity without intravenous contrast have been obtained. 2-D sagittal and coronal reconstructions have been obtained. 3-D reconstructions have been obtained. Low dose protocols were performed. One or more of the following dose reduction techniques were used; automated exposure control, adjustment of the mA and/or KV according to patient size, use of iterative reconstruction technique. Findings: Urinary bladder wall thickening up to 6 mm AP prostate dimension 3.5 cm Abundant stool in the rectum with significant thickening of the rectal wall Fat-containing inguinal hernias Edema surrounding the thigh Large low-density mass in the adductor christiane muscle medial posterior thigh, at least 4.7 x 3.8 x 10.5 cm Skin thickening from the cellulitis medial thigh Small knee effusion Negative for osteomyelitis IMPRESSION: Low-density mass in the medial posterior thigh, in the adductor christiane muscle, 4.7 x 3.8 x 10.5 cm most consistent with abscess Recommend surgical consultation
--- NOTE | 2025-03-06 16:51 | EKG_ITS ---
[facility] Test Date: 2025-03-06 Pat Name: CHRISTIANE COTTRELL Department: Room: - Gender: Male Engine Monitor: : 1935 Requested By: Jaqueline Szymanski Order Number: [id number] Reading MD: Jaqueline Szymanski Measurements Intervals [place] Rate: 77 P: 72 NH: 133 QRS: 181 QRSD: 186 T: -86 QT: 467 QTc: 531 Interpretive Statements ELECTRONIC VENTRICULAR PACEMAKER ABNORMAL RHYTHM ECG Compared to ECG 09/15/2024 18:30:20 No significant changes /store/S0/[id number]/[id number].pdf
--- NOTE | 2025-03-06 16:51 | XR_ITS ---
Examination: Duplex scan of the lower extremity, unilateral right Date and time of exam: March 06, 2025 1712 hours INDICATIONS: Right leg swelling and pain beginning 10 days ago Technique: Duplex scan of the extremity veins using B-mode/grayscale imaging and Doppler spectral analysis and color flow Attention is directed to internal echogenicity, compression and augmentation involving these veins, color flow assessment, spectral analysis Findings: Major deep venous structures in the extremity demonstrate normal course and caliber. There is no evidence of deep vein thrombosis. Normal color flow and spectral analysis Impression: Negative for DVT..
--- NOTE | 2025-03-06 16:52 | XR_ITS ---
Examination: AP chest single view TECHNIQUE: AP portable upright chest single view Date and time: March 06, 2025, 1749 hours INDICATIONS: Sepsis protocol FINDINGS: Moderate enlargement left ventricle Stable position cardiac leads Prominent vascular congestion with early edema perihilar and at the lung bases No leida lobar pneumonia Old appearing left-sided rib fractures Right internal jugular Port-A-Cath tip satisfactory position IMPRESSION: Mild heart failure No lobar pneumonia
--- NOTE | 2025-03-06 16:53 | EDNOTE_ITS ---
<Statement entered by Aissatou Irby MD - 03/09/25 18:57> As co-signing physician, I was present and available for consult prn. I concur with the plan and care as documented by the midlevel provider. 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 This been ongoing for the last few days. Patient had home health care nurse visited him today and was worried that it might be a blood clots. Patient was not noted to any other complaints except for generalized body weakness. No fever was noted according to the family. Was recently discharged in this hospital about 10 days ago for septic shock., Related Data Home Medications ?Medication ?Instructions ?Recorded ?Confirmed aspirin 81 mg tablet 81 mg PO DAILY 08/16/2301/26 Held on 02/24/25. Instructions: Resume on 03/03/25. Follow up with Cardiology. Hold due to pancytopenia. finasteride 5 mg tablet 5 mg PO DAILY 08/16/2302/16 fluticasone propionate 50 1 spray intranasal BID 08/1602/16/25 mcg/actuation nasal spray,suspension levothyroxine 25 mcg tablet 25 mcg PO DAILY 08/16/23 0 02/16/25 pantoprazole 40 mg tablet,delayed 40 mg PO DAILY 08/1602/16/25 release tamsulosin 0.4 mg capsule 0.4 mg PO DAILY 08/16/23 hydroxyzine HCl 50 mg tablet 50 mg PO QID PRN Anxiety 07/31/24 02/16/25 Previous Rx's ?Medication ?Instructions ?Recorded acetaminophen 325 mg tablet 650 mg (2 x 325 mg) PO BID PRN 07/31/24 (Tylenol) pain #14 tabs carvedilol 3.125 mg tablet (Coreg) 3.125 mg PO BID #60 tabs 09/12/24 sacubitril 24 mg-valsartan 26 mg 0.5 tab PO BID #60 ta bs 09/19/24 tablet (Entresto) clotrimazole 1 % topical cream 1 applic topical BID fu ngal rash 02/24/25 #15 grams midodrine 10 mg tablet 10 mg PO TID 30 days #90 tab s 02/24/25 Allergies Allergy/AdvReac Type Severity Reaction Status Date / Time No Known Allergies Allergy Verified 11/07/24 08:18 Review of Systems Review of Systems Narrative Review of Systems: Review of system reviewed and within normal limits except mentioned in HPI ED Exam Narrative Physical exam: VITAL SIGNS: Reviewed. GENERAL APPEARANCE: Alert and interactive, follows commands, no acute distress, cachectic HEAD AND FACE: Non-traumatic. ENT: PERRL, pale conjunctiva, eyelid no trauma, Mucous membrane moist. NECK: Supple, nontender, no nuchal rigidity. CHEST: No tenderness, no crepitus, no paradoxical movement, no retractions. LUNGS: Clear, well ventilated, symmetric, no rales, no wheezing, no ronchi, no stridor, good breath sounds bilaterally. HEART: Regular rate, regular rhythm, no murmur, no gallops. ABDOMEN: Soft, positive bowel sounds, nondistended, no guarding, nontender, no rebound, no masses, RECTAL: Deferred. GENITAL: Deferred. NEUROLOGICAL: Gross motor function intact sensory function intact, Appropriate for age. MUSCULOSKELETAL: low back nontender, full range of motion. EXTREMITIES: +4 x 6 cm swelling, tenderness, erythematous, medial aspect of the thigh nonfluctuant,, full range of motion. SKIN: Color pale, dry, no rash, no lacerations, no abrasions, no contusions. LYMPHATICS: Deferred. Course Quality Measures none Orders Category Date Time Status COVID-19 Screening Questionnaire NOW Care 03/06/25 20:33 Active Biochemistry Professor STAT Care 03/06/25 16:51 Active Continuous Pulse Oximetry STAT Care 03/06/25 16:51 Completed Decision to Admit X1 Care 03/06/25 20:33 Active EKG (ED ONLY) *Do not use* NOW Care 03/06/25 16:51 Completed In and Out Catheter X1PRN Care 03/06/25 16:51 Active Insert IV NOW Care 03/06/25 16:51 Active NPO STAT Care 03/06/25 16:51 Active Strict Intake and Output Routine Care 03/06/25 16:51 Ordered Consult to General Surgery Stat Cons 03/06/25 20:[address] lower leg RT wo con Stat Exams 03/06/25 16:51 Completed EKG (ED Only) Stat Exams 03/06/25 16:51 Draft US venous doppler LE RT Stat Exams 03/06/25 16:51 Completed XR chest 1V SEPSIS PROTOCOL Stat Exams 03/06/25 16:52 Completed B-Type Natriuretic Peptide Stat Lab 03/06/25 17:00 Completed Blood Culture (Lab) Stat Lab 03/06/25 18:07 Received CBC Stat Lab 03/06/25 17:00 Completed Comprehensive Metabolic Panel Stat Lab 03/06/25 17:00 Completed LDH (Lactate Dehydrogenase) Stat Lab 03/06/25 17:00 Completed Lactate (Lactic Acid) Stat Lab 03/06/25 17:00 Completed Lipase Stat Lab 03/06/25 17:00 Completed Magnesium Stat Lab 03/06/25 17:00 Completed Partial Thromboplastin Time Stat Lab 03/06/25 17:00 Completed Phosphorous Stat Lab 03/06/25 17:00 Completed Procalcitonin Stat Lab 03/06/25 17:00 Completed Prothrombin Time with INR Stat Lab 03/06/25 17:00 Completed Troponin I Stat Lab 03/06/25 17:00 Completed Urinalysis Stat Lab 03/06/25 18:20 Completed Urine Culture Stat Lab 03/06/25 18:20 Received Piper/Tazo 3.375 gm Premix [Zosyn] Med 03/06/25 20:32 Active 3.375 gm in 50 ml IV X1 Sodium Chloride 0.9% 1000 ml [Ns] 1,000 ml Med 03/06/25 17:44 Discontinued IV 999 mls/hr Vancomycin/Ns 1 gm Ivpb 200 ml Med 03/06/25 20:26 Active IV X1 cefTRIAXone/D5w 1gm IV premix [Rocephin/D5w 1gm IV Med 03/06/25 17:46 Discontinued premix] 1 gm in 50 ml IV X1 Oxygen Delivery NOW RT 03/06/25 16:51 Active Vital Signs Vital signs: Vital Signs Temperature 98.5 F 03/06/25 16:30 Pulse Rate 70 03/06/25 16:30 Respiratory Rate 20 03/06/25 16:30 Blood Pressure 93/53 L 03/06/25 16:30 Pulse Oximetry (%) 96 03/06/25 16:30 Oxygen Delivery Method Room Air 03/06/25 16:30 Extremity Injury, Lower MDM Narrative MDM Narrative:: 89-year-old male with past medical history of HFrEF s/p NURSING SERVICE ADMINISTRATOR-D (last replaced 2023), ischemic cardiomyopathy, CAD s/p CABG x4, MRSA bacteremia, endocarditis, hypertension, GERD, BPH, CKD stage IV, hypothyroidism, and 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 This been ongoing for the last few days. Patient had home health care nurse visited him today and was worried that it might be a blood clots. Patient was not noted to any other complaints except for generalized body weakness. No fever was noted according to the family. Was recently discharged in this hospital about 10 days ago for septic shock., CBC showed severe neutropenia 2.8 hemoglobin of 9.1 and hematocrit of 26.7 potassium was noted to be 5.2 creatinine 2.1 BUN of 65. BNP was noted to be 2004 urinalysis no UTI Chest x-ray showed mild congestive heart failure, no pneumonia noted. Ultrasound of the leg negative for DVT, CT scan of the lower leg showed Low- density mass in the medial posterior thigh, in the adductor christiane muscle, 4.7 x 3.8 x 10.5 cm most consistent with abscess Recommend surgical consultation Patient received IV fluids, IV ceftriaxone initially and I added vancomycin and Zosyn. Plan of care discussed with the patient family who agrees to be admitted. Discussed with Dr. Austin general surgeon on-call, and will see the patient in the floor. Patient data External records reviewed:: None Clinical information provided by:: patient and family Social determinants that could affect healthcare access:: none Patient has the following chronic illnesses:: Myelodysplastic syndrome, hypothyroidism, CKD, GERD, BPH hypertension MRSA bacteremia endocarditis ischemic cardiomyopathy CAD status post CABG congestive heart failure How is presenting disease/condition affected by chronic disease/condition?: exacerbated by Evaluation data The following diagnostics were reviewed and interpreted by me:: lab results, radiology exam(s) and EKG tracing(s) Lab and/or radiology exams considered but not ordered:: None Interpretation Summary: EKG showed paced rhythm, ventricular rate of 77 bpm, SC interval 133 MS, ST segment elevation depression noted. Medications / Prescriptions Medications or Prescriptions considered but not ordered:: None Medication administrations:: Medication Administration History Vancomycin/Sodium Chloride (Vancomycin/Ns 1 Gm Ivpb) 200 mls @ 120 mls/hr IV X1 ONE Stop: 03/06/25 22:05 Piperacillin/Tazobactam/Dextrose (Zosyn) 3.375 gm in 50 mls @ 100 mls/hr IV X1 ONE Stop: 03/06/25 21:01 Discontinued Medications Sodium Chloride (Ns) 1,000 mls @ 999 mls/hr IV .Q1H1M ONE Stop: 03/06/25 18:44 Last Infusion: 03/06/25 19:19 Dose: Infused Documented By: Admin: 03/06/25 18:18 Dose: 999 mls/hr Documented By: EF Ceftriaxone Sodium/Dextrose (Rocephin/D5w 1gm Iv Premix) 1 gm in 50 mls @ 100 mls/hr IV X1 ONE Stop: 03/06/25 18:15 Last Infusion: 03/06/25 18:49 Dose: Infused Documented By: Admin: 03/06/25 18:19 Dose: 100 mls/hr Documented By: EF IV fluids, depression IV, vancomycin IV and piperacillin IV Consultations Consultation(s) initiated? (list below): Yes Consultation #1 (Physician, Specialty, Details): General surgeon on-call, Dr. Austin Diagnosis Extremity Injury, Lower Differential Diagnosis: other (Thigh abscess, cellulitis thigh) Most likely diagnosis given after review of the tests above:: Abscess thigh muscle Admission Indicated Admission indicated?: indicated Admission Request Was there a request for admission?: Yes Admission Attestation Admission request attestation: Discussed case with [Dr. Mcfarlane] from Hospitalist service regarding admission. Discussed patients ED course, exam findings, labs, and radiology results. The Hospitalist [agrees] to accept the patient for admission. Disposition Plan Disposition Plan: Admit Discharge Plan Plan Patient Disposition: HOME (Self Care) Prescriptions/Referrals Prescriptions/Med Rec: No Action hydroxyzine HCl 50 mg tablet 50 mg PO QID PRN (Reason: Anxiety) levothyroxine 25 mcg tablet 25 mcg PO DAILY Patient Comments: TAKE 1 TABLET BY MOUTH EVERY DAY pantoprazole 40 mg tablet,delayed release (DR/EC) 40 mg PO DAILY Patient Comments: TAKE 1 TABLET BY MOUTH EVERY DAY 30 MINUTES BEFORE BREAKFAST finasteride 5 mg tablet 5 mg PO DAILY tamsulosin 0.4 mg capsule 0.4 mg PO DAILY aspirin 81 mg Tablet 81 mg PO DAILY fluticasone propionate 50 mcg/actuation [place]ats,Suspension 1 spray INTRANASAL BID acetaminophen [Tylenol] 325 mg tablet 650 mg PO BID PRN (Reason: pain) Qty: 14 0RF Entresto 24-26 mg tablet 0.5 tab PO BID Qty: 60 2RF carvedilol [Coreg] 3.125 mg tablet 3.125 mg PO BID Qty: 60 0RF Rx Instructions: must administer with a meal/food midodrine 10 mg tablet 10 mg PO TID 30 Days Qty: 90 0RF Rx Instructions: Hold if BP >140/80 clotrimazole 1 % cream 1 applic topical BID Qty: 15 0RF Referrals: No Primary/Family,Physician [Primary Care Provider] - In 1 week Problem List Clinical Impression: Abscess of right thigh Patient/Caregiver Discharge Instructions Print Language: American Stand Alone Forms: [employer]ony Award Info., Patient Portal Info Letter
[2025-03-06 16:59] VITALS: PULSE 80; RESP 14; RESP 97; TEMP 37.6
[2025-03-06 17:47] LABS: Lactate (Lactic Acid) 1.7 mMol/L (0.4-2.0)
[2025-03-06 17:57] LABS: Basophils # (Auto) 0.0 Thou/mm3 (0.0-0.2); Basophils % (Auto) 3 % (0-2.5); Eosinophils # (Auto) 0.0 Thou/mm3 (0.0-0.5); Eosinophils % (Auto) 4 % (0-10); Hematocrit 26.7 % (41.0-53.0); Hemoglobin 9.1 g/dL (13.5-16.0); Immature Granulocytes Auto 0.00 Thou/mm3 (0.00-0.00); Lymphocytes # (Auto) 0.5 Thou/mm3 (1.0-4.8); Lymphocytes % (Auto) 59 % (10-50); Mean Corpuscular HGB Conc 34.1 g/dl (31.0-37.0); Mean Corpuscular Hemoglobin 28.5 pg (25.0-35.0); Mean Corpuscular Volume 84 fL (80-100); Monocytes # (Auto) 0.0 Thou/mm3 (0.0-0.8); Monocytes % (Auto) 5 % (0-12); Neutrophils # (Auto) 0.2 Thou/mm3 (1.8-7.7); Neutrophils % (Auto) 30 % (37-80); Nucleated Red Blood Cell # 0.00 Thou/mm3 (0.00-0.00); Nucleated Red Blood Cell % 0 /100 WBC (0); RDW Standard Deviation 47.6 fL (35.1-43.9); Red Blood Count 3.19 Miln/mm3 (4.50-5.90)
[2025-03-06 18:05] LABS: INR 1.3 (0.9-1.3); Partial Thromboplastin Time 27.2 Seconds (22.0-36.0); Prothrombin Time 13.9 Seconds (9.0-12.2)
[2025-03-06] MEDS: SODIUM CHLORIDE 0.9% 1000 ML 1,000 ML 999 ML IV (18:18)
[2025-03-06] MEDS: cefTRIAXone/D5w 1gm IV premix 1 GM/50 ML BAG IV (18:19)
[2025-03-06 18:20] LABS: B-Type Natriuretic Peptide 2004 pg/mL (0-100)
[2025-03-06 18:23] LABS: Alanine Aminotransferase 12 U/L (10-49); Albumin, Serum 2.9 gm/dL (3.4-4.8); Albumin/Globulin Ratio 0.6 (1.2-2.2); Alkaline Phosphatase 66 U/L (46-116); Anion Gap 8 (7-16); Aspartate Amino Transferase 12 U/L (0-34); BUN/Creatinine Ratio 31 Ratio (12-20); Bilirubin,Total 0.6 mg/dL (0.3-1.2); Blood Urea Nitrogen 65 mg/dL (9-23); Calcium 8.6 mg/dL (8.3-10.6); Calcium (Corrected) 9.5 mg/dL (8.5-10.1); Carbon Dioxide 23.0 mMol/L (20.0-31.0); Chloride 108 mMol/L (98-107); Creatinine (Component) 2.1 mg/dL (0.6-1.3); Estimated Creatinine Clearance 22.3 mL/min (>60); Globulin 4.7 gm/dL (2.3-3.5); Glucose 151 mg/dL (74-106); LDH (Lactate Dehydrogenase) 140 U/L (120-246); Lipase 14 U/L (12-53); Magnesium 1.6 mg/dL (1.6-2.6); Osmolality,Calculated 299 (275-295); Phosphorous 2.9 mg/dL (2.4-5.1); Potassium 5.2 mMol/L (3.4-5.1); Procalcitonin 0.45 ng/ml (0.0-0.49); Sodium 139 mMol/L (136-145); Total Protein 7.6 gm/dL (5.7-8.2); Troponin I < 0.020 ng/mL (0.0-0.045); eGFR 30 See Note
[2025-03-06 18:24] VITALS: BP 107/58; PULSE 94; RESP 22; TEMP 36.7; O2SAT 98
[2025-03-06 18:25] LABS: Platelet Count 35 Thou/mm3 (140-440); White Blood Count 0.8 Thou/mm3 (3.8-10.6)
[2025-03-06 18:26] LABS: Collection Type, Urine Clean Catch
[2025-03-06 18:54] LABS: Amorphous Crystals,Urine Present (Absent); Bilirubin,Urine Negative (Negative); Blood,Urine 1+ (Negative); Clarity,Urine Clear (Clear/Hazy); Color,Urine Yellow (Lt Yel-Yel); Glucose, Urine Negative (Negative); Granular Casts,Urine < 1 /hpf (0-1); Ketones,Urine Negative (Negative); Leukocyte Esterase,Urine Negative (Negative); Nitrite,Urine Negative (Negative); PH,Urine 6.0 (5.0-7.0); Protein,Urine 1+ (Neg - Trace); RBC,Urine 1 /hpf (0-3); Specific Gravity,Urine 1.019 (1.001-1.035); Squamous Epithelial Cell,Urine < 1 /hpf (0-5); Urobilinogen,Urine Negative mg/dL (0.0-1.0); WBC,Urine 2 /hpf (0-5)
[2025-03-06 19:32] LABS: Slide Review Platelets confirmed
[2025-03-06] MEDS: PIPER/TAZO 3.375 GM PREMIX 3.375 GM/50 ML BAG IV (20:42)
[2025-03-06] MEDS: VANCOMYCIN/NS 1 GM IVPB 200 ML IV (21:35)
[2025-03-06 22:00] VITALS: PULSE 88; RESP 14; RESP 97
[2025-03-06 22:03] VITALS: BP 98/52; PULSE 88; RESP 16; TEMP 36.7; O2SAT 97
--- NOTE | 2025-03-06 22:30 | PD.RESHP ---
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 Of note patient was admitted to the ICU secondary to septic shock and neutropenic fever on February 15 to February 24. On 02/22 patient developed a fungal rash on the right thigh imaging was negative for abscess and he was started on clotrimazole which he continues to apply at home. At that time aspirin was held secondary to low platelet count. Patient was discharged on midodrine 10 mg 3 times daily, carvedilol, Entresto, clotrimazole cream, and levothyroxine. Patient notes that the right thigh erythema, swelling and pain have gotten worse at home which prompted him to come back to the emergency room. He denies nausea, vomiting, diarrhea, subjective fevers at home. In the ED vital signs were unremarkable other than mild tachypnea at 22, systolic BP in the 100s. Afebrile. Labs significant for WBC low 0.8, hemoglobin low 9.1, hematocrit low 26.7, MCV within normal limits, platelets low 35. PT high 13.9, BNP high 2004, albumin low 2.9. Pending blood cultures. Right LE CT w/o showed low-density mass in the posteromedial thigh in adductor christiane muscle measuring 4.7 x 3.8 x 10.5. Right lower extremity Doppler negative for DVT. Chest x-ray showed vascular congestion but negative for consolidation. EKG showed a paced rhythm at 77, QTc 531. patient given 1 L normal saline and given 1 dose of Rocephin, then switched to vancomycin and pip-tazo. (Tamara): [phone] Review of Systems Review of Systems Narrative Review of Systems: 14 point review of systems negative other than HPI Exam Vital Signs Temp Pulse Resp BP Pulse Ox O2 Del Method 98.0 F 88 16 98/52 L 97 Room Air 03/06/25 22:03 03/06/25 22:03 03/06/25 22:03 03/06/25 22:03 03/06/25 22:03 03/06/25 22:03 Narrative Exam General: No acute distress, well nourished, lying in bed Eye: PERRL, EOMI, normal conjunctiva, no scleral icterus HENT: Normocephalic, atraumatic, clear tympanic membranes, normal hearing, moist oral mucosa, no sinus tenderness Neck: Supple, non-tender, no carotid bruits, no JVD, no lymphadenopathy Lungs: Clear to auscultation bilaterally, non-labored respirations, symmetric chest rise Heart: Normal S1 and S2, no S3 or S4 appreciated. Normal rate and regular rhythm, no murmurs, rubs gallops, or edema. Peripheral pulses intact bilaterally, capillary refill brisk distally Abdomen: Soft, non-tender, non-distended Musculoskeletal: Normal range of motion in all extremities Skin: Area of erythema and mild warmth along the posterior medial aspect of the right thigh, nonfluctuant, tender to palpation. Small area of mild erythema, clean, no drainage apparent on the left buttock Neurologic: Alert, awake and oriented x3, though patient confused about what medications he is taking. Speech and language: Normal with no dysarthria or dysphasia, stuttering apparent. Tremor noted in bilateral upper extremities right more so than left. No pronator drift appreciated Psychiatric: Cooperative, appropriate mood and affect Results: Labs 03/06/25 17:00 03/06/25 17:00 Labs: Short CBC 03/06/25 Range/Units 17:00 WBC 0.8 L* (3.8-10.6) Thou/mm3 Hgb 9.1 L D (13.5-16.0) g/dL Hct 26.7 L (41.0-53.0) % Plt Count 35 L (140-440) Thou/mm3 BMP 03/06/25 17:00 Sodium 139 Potassium 5.2 H Chloride 108 H Carbon Dioxide 23.0 BUN 65 H Creatinine 2.1 H Glucose 151 H Calcium 8.6 Cardiac Enzymes 03/06/25 Range/Units 17:00 Troponin I < 0.020 (0.0-0.045) ng/mL Liver Function 03/06/25 Range/Units 17:00 Total Bilirubin 0.6 (0.3-1.2) mg/dL AST 12 (0-34) U/L ALT 12 (10-49) U/L Alkaline Phosphatase 66 (46-116) U/L Albumin 2.9 L (3.4-4.8) gm/dL Urine 03/06/25 Range/Units 18:20 Urine Color Yellow (Lt Yel-Yel) Urine Clarity Clear (Clear/Hazy) Urine pH 6.0 (5.0-7.0) Ur Specific [place] 1.019 (1.001-1.035) Urine Protein 1+ A (Neg - Trace) Urine Glucose (UA) Negative (Negative) Quality Measures Quality Measures none Advance care planning discussed with:: patient Medications Home Medications and Allergies Home Medications ?Medication ?Instructions ?Recorded ?Confirmed ?Type aspirin 81 mg tablet 81 mg PO DAILY 08/16/23 02/16/25 History Held on 02/24/25. Instructions: Resume on 03/03/25. Follow up with Cardiology. Hold due to pancytopenia. finasteride 5 mg tablet 5 mg PO DAILY 08/16/23 02/16/25 History fluticasone propionate 50 1 spray intranasal BID 08/16/23 02/16/25 History mcg/actuation nasal spray,suspension levothyroxine 25 mcg tablet 25 mcg PO DAILY 08/16/23 03/06/25 History pantoprazole 40 mg tablet,delayed 40 mg PO DAILY 08/16/23 02/16/25 History release tamsulosin 0.4 mg capsule 0.4 mg PO DAILY 08/16/23 03/06/25 History hydroxyzine HCl 50 mg tablet 50 mg PO QID PRN Anxiety 07/31/24 02/16/25 History Allergies Allergy/AdvReac Type Severity Reaction Status Date / Time No Known Allergies Allergy Verified 11/07/24 08:18 Visit Medications Acetaminophen (Acetaminophen 325 Mg Tablet) 650 mg PO Q6H PRN PRN Reason: Fever > 100.3 or pain Stop: 04/05/25 21:48 Carvedilol (Carvedilol 3.125 Mg Tablet) 3.125 mg PO BID [facility] Stop: 04/06/25 08:59 Cefepime HCl 1 gm/ Sodium (Chloride) 50 mls @ 100 mls/hr IV Q12HR [facility] Stop: 03/13/25 22:19 Cefepime HCl 1 gm/ Sodium (Chloride) 50 mls @ 100 mls/hr IV X1 ONE Stop: 03/06/25 22:59 Vancomycin/Sodium Chloride (Vancomycin/Ns 1 Gm Ivpb) 200 mls @ 120 mls/hr IV X1 ONE Stop: 03/07/25 00:09 Levothyroxine Sodium (Levothyroxine Sodium 25 Mcg Tablet) 25 mcg PO DAILY [facility] Stop: 04/06/25 08:59 Metronidazole (Metronidazole 250 Mg Tablet) 500 mg PO TID [facility] Stop: 03/14/25 05:59 Midodrine (Midodrine 5 Mg Tablet) 10 mg PO TID [facility] Stop: 04/06/25 05:59 Ondansetron HCl (Ondansetron Inj 2 Mg/Ml Inj 2 Ml) 4 mg IVP Q6H PRN; Protocol PRN Reason: NAUSEA OR VOMITING Stop: 04/05/25 21:53 Pantoprazole Sodium (Pantoprazole Inj 40 Mg Vial) 20 mg IVP QDAY [facility] Stop: 04/06/25 08:59 Pharmacy Consult (Vancomycin Pharmacy To Dose 1 Each Each) 1 each IV QDAY [facility] Stop: 04/06/25 08:59 Sennosides (Senna Tablet) 1 tab PO QDAY PRN; Protocol PRN Reason: constipation Stop: 04/05/25 21:53 Tamsulosin HCl (Tamsulosin Hcl 0.4 Mg Capsule) 0.4 mg PO DAILY [facility] Stop: 04/06/25 08:59 Discontinued Medications Sodium Chloride (Ns) 1,000 mls @ 999 mls/hr IV .Q1H1M ONE Stop: 03/06/25 18:44 Last Infusion: 03/06/25 19:19 Dose: Infused Ceftriaxone Sodium/Dextrose (Rocephin/D5w 1gm Iv Premix) 1 gm in 50 mls @ 100 mls/hr IV X1 ONE Stop: 03/06/25 18:15 Last Infusion: 03/06/25 18:49 Dose: Infused Vancomycin/Sodium Chloride (Vancomycin/Ns 1 Gm Ivpb) 200 mls @ 120 mls/hr IV X1 ONE Stop: 03/06/25 22:05 Last Admin: 03/06/25 21:35 Dose: 120 mls/hr Piperacillin/Tazobactam/Dextrose (Zosyn) 3.375 gm in 50 mls @ 100 mls/hr IV X1 ONE Stop: 03/06/25 21:01 Last Infusion: 03/06/25 21:19 Dose: Infused Pantoprazole Sodium (Pantoprazole Inj 40 Mg Vial) 40 mg IVP QDAY [facility] Stop: 04/06/25 08:59 Assessment & Plan Plan Mr. Wyatt is AN 89-year-old male with past medical history of HFrEF (LVEF 10 to 15%), CAD, s/p CABG x 4, hypertension, CKD stage IV, myelodysplastic syndrome on chemo and transfusions, hypothyroidism who presents to the ED with right lower extremity posteromedial abscess. # Right lower extremity posterior medial abscess Patient initially developed right thigh fungal infection on 629 during previous hospitalization. Started on clotrimazole topical. Patient reports that he continued to apply the clotrimazole after discharge. Patient reports that he has noticed progressive swelling, redness, pain in this area. Physical exam showed nonfluctuant erythematous and warm area along the posterior medial aspect of the thigh. Right lower extremity CT without contrast showed low-density mass in the posteromedial thigh in adductor christiane muscle measuring 4.7 x 3.8 x 10.5 - Patient given Rocephin x 1 and 1 L NS in ED then started on vancomycin and pip-tazo Plan: - Started Flagyl p.o. 500 every 8 hours, vancomycin (pharmacy dosing), and cefepime 1 g every 12 hours (renal dosing) - Surgery consulted, plan to assess in the morning with possible I&D - NPO now. Low-sodium diet when appropriate # Pancytopenia # Myelodysplastic syndrome Initial labs: WBC 0.8, hemoglobin 9.1, hematocrit 26.7, platelet 35. MCV within normal limits Patient on Azocitidine for myelodysplastic syndrome and requires frequent transfusions and Filgastrim Plan: - Continue to monitor with CBC daily - Consulted heme-onc - Hold any anticoagulation due to low platelet count. DVT prophylaxis with SCDs only - Transfuse if hemoglobin < 7 # ESTELLA on CKD stage IV Initial labs: BUN 65, creatinine 2.1 Patient's baseline creatinine usually 1.5-1.8 Given 1 L normal saline in ED Patient has a history of HFrEF, important not to overload patient with IVF Plan: - Continue to monitor with CMP daily - Avoid nephrotoxic agents # HFrEF # Hx Hypertension TTE 02/16/25: LVEF 10 to 15% Home meds (per 02/24/25 discharge summary): Carvedilol 3.215 mg PO BID, Entresto 0.5 mg PO BID, Midodrine 10 mg PO TID BP in ED: sBP 93-107 / dBP 52-57 Initial labs: BNP elevated 2004 Initial chest x-ray showed vascular congestion. Right upper extremity Doppler negative for DVT Plan: - Continue home Carvedilol, Midodrine. Continue to monitor on telemetry, can hold Coreg if hypotensive (BP < 90/70) - Hold Entresto (2/2 ESTELLA) - Fluid restrictions - 1.5 L / day - Daily weights - Strict I&Os # Prolonged QTc Initial EKG showed QTc 531 Plan: - Continue to monitor on telemetry - Avoid QTc prolonging agents # Hypothyroidism Plan: - Continue home levothyroxine 25 mcg daily # Left buttock erythema Plan: - Frequent turns, continue to monitor # Benign prostatic hypertrophy Plan - Continue home Tamsulosin 0.4 mg PO daily Plan discussed with Dr. Rodri Lozano, PGY1 Attending Provider Attestation/Addendum After examination of the patient and review of the clinical data I feel that this patient needs admission to the hospital for further treatment/evaluation. I have discussed and was present for the essential components of the history, physical examination, diagnosis, and treatment plan with the resident. I agree with the patient's care as documented by the resident and amended herein by me. Teto Mace DO. Although this document has been carefully reviewed, there may still be some phonetic and other typographical errors. These errors are purely grammatical due to imperfections in the software program and should not be construed in any way to compromise the substance of the patient's medical care during this visit. Patient seen and evaluated in the ED. Patient is an 89-year-old male with significant past medical history of HFrEF with an EF of 10%, CAD status post CABG, history of endocarditis, hypertension, pacemaker placement, BPH, CKD stage IV, hypothyroidism, myelodysplastic syndrome on chemotherapy, follows with Dr. Harman at [facility] cancer center, frequent blood transfusions and recent discharge for septic shock and neutropenic fever, presented to the ED for right thigh pain and swelling. Prior to the patient's discharge on 02/24, the patient did have an area of erythema and redness at that time, an ultrasound was performed to rule out any abscess and was negative. It was thought the patient may have a fungal infection and be very susceptible to any sort of skin infection due to his pancytopenia and was discharged with clotrimazole cream at that time however the area began to worsen. Patient subsequently admitted for right thigh abscess likely needing I&D. Of note, the patient is chronically pancytopenic, he was given 6 doses of Neupogen on last administration with minimal rise in WBC counts, per oncology recommendations, the patient was safe to discharge due to the fact this is chronic for him. In the ED, blood pressure 107/58 mmHg, the patient was afebrile and on room air with an SpO2 of 97%. Significant labs included WBC of 0.8, hemoglobin 9 which appears to be around the patient's baseline, platelet count 35, neutrophil count 0.2 sodium 139, potassium 5.2, BUN 65 and creatinine 2.1 with a baseline of approximately 1.5, has been elevated since the patient's last admission for septic shock, possible ATN still recovering. BNP 2004, Pro-Emiliano negative, lactic acid, EKG demonstrating paced rhythm, chest x-ray demonstrating mild heart failure pattern, and CT of the right lower extremity demonstrating a 4.7 x 3.8 x 10.5 abscess in the medial posterior thigh, in the abductor christiane muscle. General surgery was consulted in the ED, will see the patient tomorrow, the patient was also given a dose of vancomycin and Zosyn as well as a a 1 L NS bolus in the ED. Patient subsequently admitted to telemetry. For the patient's right thigh abscess, we did continue antibiotics consisting of cefepime renally dosed, vancomycin and Flagyl, Dr. Austin has already been consulted in the ED for possible I&D, will see patient tomorrow. Blood and urine cultures pending. Patient is not in acute heart failure exacerbation however we did place heart failure measures to include daily weights, strict I's O's and fluid restrictions. For the patient's ESTELLA, likely ATN, will avoid nephrotoxic medications and watch for improvement, being conservative with fluids at this time due to the patient's severe heart failure. For the patient's history of MDS with reported last chemotherapy session approximately 3 days ago, will recommend day team to consult oncology tomorrow, Dr. Harman for further recommendations and possibly starting Neupogen for a few days to bring the cell lines up however was not very effective on last admission. Will restart home meds as appropriate
[2025-03-06] MEDS: CEFEPIME INJ 1 GM in SODIUM CHLORIDE 0.9% (Popper) 50 ML IV (23:45)
[2025-03-07] VITALS (15 sets, daily range): BP systolic 86–112; BP diastolic 51–68; PULSE 80–100; RESP 16–90; TEMP 36.4–37.4; O2SAT 92–97; BMI 22.1
--- NOTE | 2025-03-07 00:55 | PC.NURSE ---
At time of admission, night nurse Kayden was unable to do patient's med rec as patient does not remember the medication that he takes at home. Per patient, his son and are the ones that deal with his medication. Also, per patient, son will bring medication to the hospital when he comes.
[2025-03-07] MEDS: metroNIDAZOLE/NS 500 MG IVPB 500 MG/100 ML BAG 100 MG IV (05:30)
[2025-03-07 06:11] LABS: Basophils # (Auto) 0.0 Thou/mm3 (0.0-0.2); Basophils % (Auto) 4 % (0-2.5); Eosinophils # (Auto) 0.0 Thou/mm3 (0.0-0.5); Eosinophils % (Auto) 4 % (0-10); Hematocrit 27.8 % (41.0-53.0); Hemoglobin 9.5 g/dL (13.5-16.0); Immature Granulocytes Auto 0.00 Thou/mm3 (0.00-0.00); Lymphocytes # (Auto) 0.2 Thou/mm3 (1.0-4.8); Lymphocytes % (Auto) 40 % (10-50); Mean Corpuscular HGB Conc 34.2 g/dl (31.0-37.0); Mean Corpuscular Hemoglobin 28.5 pg (25.0-35.0); Mean Corpuscular Volume 84 fL (80-100); Monocytes # (Auto) 0.0 Thou/mm3 (0.0-0.8); Monocytes % (Auto) 6 % (0-12); Neutrophils # (Auto) 0.2 Thou/mm3 (1.8-7.7); Neutrophils % (Auto) 45 % (37-80); Nucleated Red Blood Cell # 0.02 Thou/mm3 (0.00-0.00); Nucleated Red Blood Cell % 4 /100 WBC (0); RDW Standard Deviation 48.5 fL (35.1-43.9); Red Blood Count 3.33 Miln/mm3 (4.50-5.90)
[2025-03-07 06:20] LABS: Platelet Count 35 Thou/mm3 (140-440); White Blood Count 0.5 Thou/mm3 (3.8-10.6)
[2025-03-07 06:37] LABS: Alanine Aminotransferase 14 U/L (10-49); Albumin, Serum 2.5 gm/dL (3.4-4.8); Albumin/Globulin Ratio 0.6 (1.2-2.2); Alkaline Phosphatase 63 U/L (46-116); Anion Gap 10 (7-16); Aspartate Amino Transferase 15 U/L (0-34); BUN/Creatinine Ratio 28 Ratio (12-20); Bilirubin,Total 0.7 mg/dL (0.3-1.2); Blood Urea Nitrogen 56 mg/dL (9-23); Calcium 8.3 mg/dL (8.3-10.6); Calcium (Corrected) 9.5 mg/dL (8.5-10.1); Carbon Dioxide 20.8 mMol/L (20.0-31.0); Chloride 111 mMol/L (98-107); Creatinine (Component) 2.0 mg/dL (0.6-1.3); Estimated Creatinine Clearance 23.5 mL/min (>60); Globulin 4.4 gm/dL (2.3-3.5); Glucose 117 mg/dL (74-106); Magnesium 1.9 mg/dL (1.6-2.6); Osmolality,Calculated 299 (275-295); Phosphorous 2.7 mg/dL (2.4-5.1); Potassium 5.0 mMol/L (3.4-5.1); Sodium 142 mMol/L (136-145); Total Protein 6.9 gm/dL (5.7-8.2); eGFR 32 See Note
[2025-03-07 06:45] LABS: Slide Review Platelets confirmed
[2025-03-07] MEDS: CEFEPIME INJ 1 GM in SODIUM CHLORIDE 0.9% (Popper) 50 ML IV ×2 (09:13→20:54)
[2025-03-07] MEDS: LEVOTHYROXINE SODIUM 25 MCG TABLET PO (09:14)
--- NOTE | 2025-03-07 09:43 | PC.SS ---
This is 89-year-old, , male who presented to the ED for leg pain. Patient was placed on reverse isolation. SW completed assessment with sonDustin via telephone call. Per Dustin, prior to admission, patient was residing at home with his , Valeria. Patient is independent with most of ADLs. Patient does have access to private caregivers. Patient uses a CPAP. Patient's PCP is Dr. Ray Gillette and oncologist is Dr. Corona at [facility]. In previous admission, patient assigned his son, Dustin Wyatt as his medical decision maker. When medically clear, patient will return home with [facility]. Family can provide transportation. Next of kin: Dustin Wyatt Discharge plan: Home with [facility].
[2025-03-07] MEDS: HYDROmorphone INJ 2 MG/ML VIAL 0.5 MG IVP (10:13)
[2025-03-07] MEDS: RINGERS LACTATED 1000 ML 500 ML 60 ML IV (10:22)
--- NOTE | 2025-03-07 11:52 | PD.SURCONS ---
HPI Consult details History of present illness: 89M with MDS, chronic systolic CHF, CAD s/p CABG, CKD, hypothyroidism and recent admission for neuropenic fevers admitted with R thigh abscess. Pt states the thigh began bothering him during his recent admission but he developed progressive pain and swelling prompting him to return to ER. He underwent CT of the RLE indicating an abscess of the muscle up to 10.5cm Review of Systems Review of Systems ROS Unobtainable: All systems reviewed & no additional complaints except as documented Meds Home Medications and Allergies Home Medications ?Medication ?Instructions ?Recorded ?Confirmed ?Type aspirin 81 mg tablet 81 mg PO DAILY 08/16/23 03/07/25 History Held on 02/24/25. Instructions: Resume on 03/03/25. Follow up with Cardiology. Hold due to pancytopenia. finasteride 5 mg tablet 5 mg PO DAILY 08/16/23 03/07/25 History fluticasone propionate 50 1 spray intranasal BID 08/16/23 03/07/25 History mcg/actuation nasal spray,suspension levothyroxine 25 mcg tablet 25 mcg PO DAILY 08/16/23 03/06/25 History pantoprazole 40 mg tablet,delayed 40 mg PO DAILY 08/16/23 03/07/25 History release tamsulosin 0.4 mg capsule 0.4 mg PO DAILY 08/16/23 03/06/25 History hydroxyzine HCl 50 mg tablet 50 mg PO QID PRN Anxiety 07/31/24 03/07/25 History spironolactone 25 mg tablet 25 mg PO QDAY 03/07/25 03/07/25 History Allergies Allergy/AdvReac Type Severity Reaction Status Date / Time No Known Allergies Allergy Verified 11/07/24 08:18 Exam Vital Signs Temp Pulse Resp BP Pulse Ox O2 Del Method 98.3 F 86 20 89/55 L 95 Room Air 03/07/25 07:59 03/07/25 09:15 03/07/25 08:56 03/07/25 09:15 03/07/25 07:59 03/07/25 03:15 Constitutional Constitutional: no acute distress Routine Respiratory Exam Respiratory: Present no resp distress Routine Extremities Exam Comments: right medial upper thigh swelling with fluctuance and erythema Results Results: Laboratory Laboratory results: results reviewed Results: Imaging Imaging narrative: CT RLE images and report reviewed Assessment & Plan Plan 89M with MDS, chronic systolic CHF, CAD s/p CABG, CKD, hypothyroidism and recent admission for neuropenic fevers admitted with R thigh abscess. Given pt's comorbid conditions including thrombocytopenia and severe CHF he is very high risk however I explained to him and his son that definitive treatment for abscess necessitates drainage. I will confer with anesthesia as to the safest plan for operative I&D
[2025-03-07] MEDS: MIDODRINE 5 MG TABLET 10 MG PO ×2 (13:30→21:14)
[2025-03-07] MEDS: SODIUM CHLORIDE 0.9% 250 ML 250 ML 999 ML IV (13:30)
--- NOTE | 2025-03-07 16:32 | PD.RESPRO ---
Documentation for date of: 03/07/25 Subjective Subjective Interval history: No overnight events. Patient seen examined at bedside, resting comfortably. Notes significant pain at site of abscess (right inner thigh), denies fever, chills, chest pain, nausea, shortness of breath, vomiting. ST eval due to significant stutter. Surgery postponed for 1 day due to low platelets, patient receiving transfusion. History of myelodysplastic syndrome, follows with Dr. Corona. ANC 225. Reach out to Dr. Corona for recommendations. Continue broad-spectrum IV antibiotics, follow cultures. Exam Vital Signs Temp Pulse Resp BP Pulse Ox O2 Del Method O2 Flow Rate 98.8 F 80 16 86/51 L 95 Nasal Cannula 2 03/07/25 12:00 03/07/25 13:30 03/07/25 12:00 03/07/25 13:30 03/07/25 12:00 03/07/25 12:00 03/07/25 12:00 Narrative Exam PE: Gen: Well-developed and well-nourished. HEENT: NCAT, PERRLA, EOMI, anicteric conjunctivae. Dry mucous membranes. CVS: normal S1 and S2. RRR. No M/R/G. Resp: CTA B/L. No rhonchi, rales, crackles or wheezing. Abd: soft, non-tender, non-distended. BS+ in all 4 quadrants. MSK: Good ROM in BUE & BLE. No edema or rash. Fluctuant mass with overlying erythema and tenderness in right medial thigh. Neuro: CN II-XII grossly intact. Strength 5/5 in BUE & BLE. Alert and oriented x3. Significant stutter, slowed movements, mild tremors. Psych: appropriate mood and affect. Objective Labs 03/08/25 05:47 03/08/25 05:47 Labs: Laboratory Results - last 24 hr 03/06/25 03/06/25 03/07/25 17:00 18:20 04:48 WBC 0.8 L* 0.5 L* RBC 3.19 L 3.33 L Hgb 9.1 L D 9.5 L Hct 26.7 L 27.8 L MCV 84 84 MCH 28.5 28.5 MCHC 34.1 34.2 RDW Std Deviation 47.6 H 48.5 H Plt Count 35 L 35 L Neut % (Auto) 30 L 45 Lymph % (Auto) 59 H 40 [place] % (Auto) 5 6 Eos % (Auto) 4 4 Baso % (Auto) 3 H 4 H Neut # (Auto) 0.2 L 0.2 L Lymph # (Auto) 0.5 L 0.2 L [place] # (Auto) 0.0 0.0 Eos # (Auto) 0.0 0.0 Baso # (Auto) 0.0 0.0 Immature Gran # (Auto) 0.00 0.00 Absolute Nucleated RBC 0.00 0.02 H Immature Gran % 0 0 Nucleated RBC % 0 4 H PT 13.9 H INR 1.3 APTT 27.2 Sodium 139 142 Potassium 5.2 H 5.0 Chloride 108 H 111 H Carbon Dioxide 23.0 20.8 Anion Gap 8 10 BUN 65 H 56 H Creatinine 2.1 H 2.0 H Estim Creat Clear Calc 22.3 L 23.5 L eGFR 30 L 32 L BUN/Creatinine Ratio 31 H 28 H Glucose 151 H 117 H Calculated Osmolality 299 H 299 H Lactic Acid 1.7 Calcium 8.6 8.3 Corrected Calcium 9.5 9.5 Phosphorus 2.9 2.7 Magnesium 1.6 1.9 Total Bilirubin 0.6 0.7 AST 12 15 ALT 12 14 Alkaline Phosphatase 66 63 Lactate Dehydrogenase 140 Troponin I < 0.020 B-Natriuretic Peptide 2004 H* Total Protein 7.6 6.9 Albumin 2.9 L 2.5 L Globulin 4.7 H 4.4 H Albumin/Globulin Ratio 0.6 L 0.6 L Lipase 14 Procalcitonin 0.45 Ur Collection Type Clean Catch Urine Color Yellow Urine Clarity Clear Urine pH 6.0 Ur Specific [place] 1.019 Urine Protein 1+ A Urine Glucose (UA) Negative Urine Ketones Negative Urine Blood 1+ A Urine Nitrite Negative Urine Bilirubin Negative Urine Urobilinogen (Auto) Negative Ur Leukocyte Esterase Negative Urine RBC 1 Urine WBC 2 Ur Squamous Epith Cells < 1 Amorphous Crystals Present A Urine Bacteria None Granular Casts < 1 Misc Test Result Platelets confirmed Platelets confirmed Blood Type Antibody Screen Blood Bank Wristband ID 03/07/25 12:11 WBC RBC Hgb Hct MCV MCH MCHC RDW Std Deviation Plt Count Neut % (Auto) Lymph % (Auto) [place] % (Auto) Eos % (Auto) Baso % (Auto) Neut # (Auto) Lymph # (Auto) [place] # (Auto) Eos # (Auto) Baso # (Auto) Immature Gran # (Auto) Absolute Nucleated RBC Immature Gran % Nucleated RBC % PT INR APTT Sodium Potassium Chloride Carbon Dioxide Anion Gap BUN Creatinine Estim Creat Clear Calc eGFR BUN/Creatinine Ratio Glucose Calculated Osmolality Lactic Acid Calcium Corrected Calcium Phosphorus Magnesium Total Bilirubin AST ALT Alkaline Phosphatase Lactate Dehydrogenase Troponin I B-Natriuretic Peptide Total Protein Albumin Globulin Albumin/Globulin Ratio Lipase Procalcitonin Ur Collection Type Urine Color Urine Clarity Urine pH Ur Specific [place] Urine Protein Urine Glucose (UA) Urine Ketones Urine Blood Urine Nitrite Urine Bilirubin Urine Urobilinogen (Auto) Ur Leukocyte Esterase Urine RBC Urine WBC Ur Squamous Epith Cells Amorphous Crystals Urine Bacteria Granular Casts Misc Test Result Blood Type O Positive Antibody Screen NEGATIVE Blood Bank Wristband ID Yes Quality Measures Quality Measures VTE prophylaxis Advance care planning discussed with:: patient and child Assessment & Plan Assessment Current Active Medications: Generic Name Dose Route Start Last Admin Trade Name Freq PRN Reason Stop Dose Admin Acetaminophen 650 mg 03/06/25 21:49 Acetaminophen 325 Mg Tablet PO 04/05/25 21:48 Q6H PRN Fever > 100.3 or pain Carvedilol 3.125 mg 03/07/25 09:00 03/07/25 09:15 Carvedilol 3.125 Mg Tablet PO 04/06/25 08:59 Not Given BID PRASANTH Cefepime HCl 1 gm/ Sodium 50 mls @ 100 mls/hr 03/07/25 09:00 03/07/25 09:13 Chloride IV 03/14/25 08:59 100 mls/hr Q12HR PRASANTH Administration Lactated Ringer's 500 mls @ 60 mls/hr 03/07/25 09:50 03/07/25 10:22 Lactated Ringers IV 03/07/25 18:09 60 mls/hr .[id number] ONE Administration Levothyroxine Sodium 25 mcg 03/07/25 09:00 03/07/25 09:14 Levothyroxine Sodium 25 Mcg Tablet PO 04/06/25 08:59 25 mcg ACBR PRASANTH Administration Metronidazole 500 mg 03/07/25 14:00 03/07/25 13:30 Metronidazole 250 Mg Tablet PO 03/14/25 13:59 500 mg TID PRASANTH Administration Midodrine 10 mg 03/07/25 06:00 03/07/25 13:30 Midodrine 5 Mg Tablet PO 04/06/25 05:59 10 mg TID PRASANTH Administration Ondansetron HCl 4 mg 03/06/25 21:54 Ondansetron Inj 2 Mg/Ml Inj 2 Ml IVP 04/05/25 21:53 Q6H PRN NAUSEA OR VOMITING Protocol Pantoprazole Sodium 20 mg 03/07/25 09:00 03/07/25 09:13 Pantoprazole Inj 40 Mg Vial IVP 04/06/25 08:59 20 mg QDAY PRASANTH Administration Pharmacy Consult 1 each 03/07/25 09:00 Vancomycin Pharmacy To Dose 1 Each Each IV 04/06/25 08:59 QDAY PRN CONSULT Sennosides 1 tab 03/06/25 21:54 Senna Tablet PO 04/05/25 21:53 QDAY PRN constipation Protocol Tamsulosin HCl 0.4 mg 03/07/25 09:00 03/07/25 09:15 Tamsulosin Hcl 0.4 Mg Capsule PO 04/06/25 08:59 Not Given DAILY PRASANTH Plan 89-year-old male with past medical history of HFrEF (LVEF 10 to 15%), CAD, s/p CABG x 4, hypertension, CKD stage IV, myelodysplastic syndrome on chemo and transfusions, hypothyroidism who presents to the ED with right lower extremity posteromedial abscess. # Right lower extremity posterior medial abscess Patient initially developed right thigh fungal infection on 629 during previous hospitalization. Started on clotrimazole topical. Patient reports that he continued to apply the clotrimazole after discharge. Patient reports that he has noticed progressive swelling, redness, pain in this area. Physical exam showed nonfluctuant erythematous and warm area along the posterior medial aspect of the thigh. Right lower extremity CT without contrast showed low-density mass in the posteromedial thigh in adductor christiane muscle measuring 4.7 x 3.8 x 10.5 - Patient given Rocephin x 1 and 1 L NS in ED then started on vancomycin and pip-tazo Plan: - Started Flagyl p.o. 500 every 8 hours, vancomycin (pharmacy dosing), and cefepime 1 g every 12 hours (renal dosing) - Surgery consulted, plan for I&D tomorrow - Cardiac diet, n.p.o. at midnight # Pancytopenia # Myelodysplastic syndrome Initial labs: WBC 0.8, hemoglobin 9.1, hematocrit 26.7, platelet 35. MCV within normal limits Patient on Azocitidine for myelodysplastic syndrome and requires frequent transfusions and Filgastrim Plan: - Continue to monitor with CBC daily - Consulted heme-onc - Hold any anticoagulation due to low platelet count. DVT prophylaxis with SCDs only - Transfuse if hemoglobin < 7 - 1 unit platelets to be transfused - Will speak with patient's oncologist Dr. Corona for recommendations # ESTELLA on CKD stage IV Initial labs: BUN 65, creatinine 2.1 Patient's baseline creatinine usually 1.5-1.8 Given 1 L normal saline in ED Patient has a history of HFrEF, important not to overload patient with IVF Plan: - Continue to monitor with CMP daily - Avoid nephrotoxic agents - IVF: LR at 60 mL/h x 1 L # HFrEF # Hx Hypertension TTE 02/16/25: LVEF 10 to 15% Home meds (per 02/24/25 discharge summary): Carvedilol 3.215 mg PO BID, Entresto 0.5 mg PO BID, Midodrine 10 mg PO TID BP in ED: sBP 93-107 / dBP 52-57 Initial labs: BNP elevated 2003 Initial chest x-ray showed vascular congestion. Right upper extremity Doppler negative for DVT Plan: - Continue home Carvedilol, Midodrine. Continue to monitor on telemetry, can hold Coreg if hypotensive (BP < 90/70) - Hold Entresto (2/2 ESTELLA) - Fluid restrictions - 1.5 L / day - Daily weights - Strict I&Os - Careful hydration # Prolonged QTc Initial EKG showed QTc 531 Plan: - Continue to monitor on telemetry - Avoid QTc prolonging agents # Hypothyroidism Plan: - Continue home levothyroxine 25 mcg daily # Left buttock erythema Plan: - Frequent turns, continue to monitor - Wound care # Benign prostatic hypertrophy Plan - Continue home Tamsulosin 0.4 mg PO daily DVT prophylaxis: SCDs GI prophylaxis: Protonix 20 Diet: Cardiac, n.p.o. after midnight Lines: Peripheral IV Code status: Full code Plan of care discussed with attending Dr. August. Paxton Gilliam MD PGY-2 Attending Provider Attestation/Addendum I attest that I was physically present for the evaluation, physical examination, lab and imaging review of the patient with the residents. I discussed the case with the residents and agree with the findings and plans of care as documented above. Patient is an 89 years old male with past medical history of myelodysplastic syndrome on chemotherapy and frequent transfusions, HFrEF, CAD status post CABG, pulmonary hypertension, right heart failure, CKD stage IV and hypothyroidism who presented to the ED with complaint of progressive right medial thigh swelling erythema and pain. He was admitted overnight for management of right lower extremity abscess in setting of pancytopenia and myelodysplastic syndrome. At bedside this morning, he continues to complain of pain, we will continue with analgesics. Has fluctuant mass over right medial thigh with erythema and tenderness along with warmth. Also noted to have significant stuttering during conversation. We will obtain speech. We will also continue with broad-spectrum IV antibiotics. Culture results are pending. General surgery following case closely, could not complete I&D because of low platelets, procedure planned for tomorrow morning after platelet infusion. Has neutropenia, we will try to reach out to Dr. Corona with patient's oncologist. Gentle IV hydration for ESTELLA on CKD. Frank August MD
--- NOTE | 2025-03-07 20:40 | PC.NURSE ---
Lilia nurse and MD Dr. Ernst contacted patient's son (Dustin Bassett Jr) in order to obtain consent for blood product use. MD informed the son the reason why we are trying to obtain consent and the reason why the blood product is needed. Patient's son gives doctor consent to use blood product. Nurse Alegria also witnessed phone call giving consent to use blood product.
[2025-03-07] MEDS: DiphenhydrAMINE/ZN ACET 2% CR 30 GM TUBE TOP (20:54)
[2025-03-08] VITALS (27 sets, daily range): BP systolic 91–113; BP diastolic 50–70; PULSE 83–98; RESP 16–93; TEMP 36.3–37.2; O2SAT 90–100; BMI 22.1
[2025-03-08 06:23] LABS: Basophils # (Auto) 0.0 Thou/mm3 (0.0-0.2); Basophils % (Auto) 2 % (0-2.5); Eosinophils # (Auto) 0.0 Thou/mm3 (0.0-0.5); Eosinophils % (Auto) 4 % (0-10); Hematocrit 24.2 % (41.0-53.0); Immature Granulocytes Auto 0.04 Thou/mm3 (0.00-0.00); Lymphocytes # (Auto) 0.3 Thou/mm3 (1.0-4.8); Lymphocytes % (Auto) 58 % (10-50); Mean Corpuscular HGB Conc 33.9 g/dl (31.0-37.0); Mean Corpuscular Hemoglobin 28.7 pg (25.0-35.0); Mean Corpuscular Volume 85 fL (80-100); Monocytes # (Auto) 0.0 Thou/mm3 (0.0-0.8); Monocytes % (Auto) 8 % (0-12); Neutrophils # (Auto) 0.1 Thou/mm3 (1.8-7.7); Neutrophils % (Auto) 19 % (37-80); Nucleated Red Blood Cell # 0.00 Thou/mm3 (0.00-0.00); Nucleated Red Blood Cell % 0 /100 WBC (0); RDW Standard Deviation 49.0 fL (35.1-43.9); Red Blood Count 2.86 Miln/mm3 (4.50-5.90)
[2025-03-08 06:31] LABS: Hemoglobin 8.2 g/dL (13.5-16.0); Platelet Count 30 Thou/mm3 (140-440); White Blood Count 0.5 Thou/mm3 (3.8-10.6)
[2025-03-08 06:54] LABS: Alanine Aminotransferase 19 U/L (10-49); Albumin, Serum 2.5 gm/dL (3.4-4.8); Albumin/Globulin Ratio 0.6 (1.2-2.2); Alkaline Phosphatase 59 U/L (46-116); Anion Gap 11 (7-16); Aspartate Amino Transferase 13 U/L (0-34); BUN/Creatinine Ratio 26 Ratio (12-20); Bilirubin,Total 0.6 mg/dL (0.3-1.2); Blood Urea Nitrogen 51 mg/dL (9-23); Calcium 8.4 mg/dL (8.3-10.6); Calcium (Corrected) 9.6 mg/dL (8.5-10.1); Carbon Dioxide 20.3 mMol/L (20.0-31.0); Chloride 110 mMol/L (98-107); Creatinine (Component) 2.0 mg/dL (0.6-1.3); Estimated Creatinine Clearance 23.5 mL/min (>60); Globulin 4.2 gm/dL (2.3-3.5); Glucose 105 mg/dL (74-106); Osmolality,Calculated 294 (275-295); Potassium 5.0 mMol/L (3.4-5.1); Sodium 141 mMol/L (136-145); Total Protein 6.7 gm/dL (5.7-8.2); Vancomycin,Random 35.4 mcg/mL; eGFR 32 See Note
[2025-03-08 07:07] LABS: Slide Review Platelets confirmed
--- NOTE | 2025-03-08 07:35 | PD.RESPRO ---
Documentation for date of: 03/08/25 Subjective Subjective Interval history: Patient was seen and examined at the bedside. No acute overnight events were reported. Patient's son was on the bedside and he reported the patient has been having stuttering in his speech for quite a while. He reported the patient did not had any fever spikes however has reported pain in his thigh. He also reported that chemotherapy was held last week by oncologist and they were planning to do an MRI outpatient which they were inquiring if he can do inpatient. Family has been thinking of hospice for him. 1 unit of platelets were transfused. Patient underwent I&D without complication. 20 cc pus was removed from the wound and cultures were sent. Speech therapist has not seen the patient yet. Dr. Corona, oncologist did not respond back yet and due to ANC count around 100 patient was given filgrastim 300mcg subcut x 1. Given his stuttering in speech, bedside speech therapy neurologist was consulted for further recommendations. Vancomycin was discontinued. Will continue with cefepime and Flagyl. Magnesium was repleted. Exam Vital Signs Temp Pulse Resp BP Pulse Ox O2 Del Method O2 Flow Rate 98.0 F 88 16 113/70 97 Nasal Cannula 1 03/08/25 04:00 03/08/25 05:16 03/08/25 04:00 03/08/25 05:16 03/08/25 04:00 03/08/25 04:00 03/08/25 04:00 Narrative Exam GENERAL APPEARANCE: Elderly frail-appearing male with stutter speech in no acute distress. Saturating well on room air. HEENT: NC, AT. Dry mucous membrane. EOMI, clear conjunctiva, oropharynx clear. NECK: Supple without lymphadenopathy. No stiffness or restricted ROM. HEART: Sinus tachycardia with regular rhythm with [employer], normal S1/S2, no m/r/g LUNGS: CTAB, moving air well. No crackles or wheezes are heard. ABDOMEN: Soft, nontender, nondistended with good bowel sounds heard. BACK: No CVAT, no obvious deformity. EXTREMITIES: Medial thigh with fluctuant mass and erythema covered in surgical dressing. NEUROLOGICAL: Grossly nonfocal. Alert and oriented, moving all 4 extremities. resting tremors. CN not formally tested but appear grossly intact. Skin: Medial thigh with fluctuant mass and erythema. Psych: Stuttering speech with appropriate mood and affect Objective Labs 03/08/25 05:47 03/08/25 05:47 Labs: Laboratory Results - last 24 hr 03/07/25 03/08/25 12:11 05:47 WBC 0.5 L* RBC 2.86 L Hgb 8.2 L Hct 24.2 L MCV 85 MCH 28.7 MCHC 33.9 RDW Std Deviation 49.0 H Plt Count 30 L Neut % (Auto) 19 L Lymph % (Auto) 58 H [place] % (Auto) 8 Eos % (Auto) 4 Baso % (Auto) 2 Neut # (Auto) 0.1 L Lymph # (Auto) 0.3 L [place] # (Auto) 0.0 Eos # (Auto) 0.0 Baso # (Auto) 0.0 Immature Gran # (Auto) 0.04 H Absolute Nucleated RBC 0.00 Immature Gran % 8 H Nucleated RBC % 0 Sodium 141 Potassium 5.0 Chloride 110 H Carbon Dioxide 20.3 Anion Gap 11 BUN 51 H Creatinine 2.0 H Estim Creat Clear Calc 23.5 L eGFR 32 L BUN/Creatinine Ratio 26 H Glucose 105 Calculated Osmolality 294 Calcium 8.4 Corrected Calcium 9.6 Total Bilirubin 0.6 AST 13 ALT 19 Alkaline Phosphatase 59 Total Protein 6.7 Albumin 2.5 L Globulin 4.2 H Albumin/Globulin Ratio 0.6 L Random Vancomycin 35.4 Misc Test Result Platelets confirmed Blood Type O Positive Antibody Screen NEGATIVE Blood Bank Wristband ID Yes Blood Bank Comment PLATP Ready Quality Measures Quality Measures VTE prophylaxis Advance care planning discussed with:: other Assessment & Plan Assessment Current Active Medications: Generic Name Dose Route Start Last Admin Trade Name Freq PRN Reason Stop Dose Admin Acetaminophen 650 mg 03/06/25 21:49 Acetaminophen 325 Mg Tablet PO 04/05/25 21:48 Q6H PRN Fever > 100.3 or pain Carvedilol 3.125 mg 03/07/25 09:00 03/07/25 20:54 Carvedilol 3.125 Mg Tablet PO 04/06/25 08:59 3.125 mg BID PRASANTH Administration Cefepime HCl 1 gm/ Sodium 50 mls @ 100 mls/hr 03/07/25 09:00 03/07/25 20:54 Chloride IV 03/14/25 08:59 100 mls/hr Q12HR PRASANTH Administration Magnesium Sulfate 2 gm in 50 mls @ 25 mls/hr 03/08/25 07:16 Magnesium Sulfate Ivpb IV 03/08/25 09:15 X1 ONE Levothyroxine Sodium 25 mcg 03/07/25 09:00 03/08/25 05:16 Levothyroxine Sodium 25 Mcg Tablet PO 04/06/25 08:59 Not Given ACBR [facility] Metronidazole 500 mg 03/07/25 14:00 03/08/25 05:16 Metronidazole 250 Mg Tablet PO 03/14/25 13:59 Not Given TID [facility] Midodrine 10 mg 03/07/25 06:00 03/08/25 05:16 Midodrine 5 Mg Tablet PO 04/06/25 05:59 Not Given TID [facility] Ondansetron HCl 4 mg 03/06/25 21:54 Ondansetron Inj 2 Mg/Ml Inj 2 Ml IVP 04/05/25 21:53 Q6H PRN NAUSEA OR VOMITING Protocol Pantoprazole Sodium 20 mg 03/07/25 09:00 03/07/25 09:13 Pantoprazole Inj 40 Mg Vial IVP 04/06/25 08:59 20 mg QDAY [facility] Administration Pharmacy Consult 1 each 03/07/25 09:00 Vancomycin Pharmacy To Dose 1 Each Each IV 04/06/25 08:59 QDAY PRN CONSULT Sennosides 1 tab 03/06/25 21:54 Senna Tablet PO 04/05/25 21:53 QDAY PRN constipation Protocol Tamsulosin HCl 0.4 mg 03/07/25 09:00 03/07/25 09:15 Tamsulosin Hcl 0.4 Mg Capsule PO 04/06/25 08:59 Not Given DAILY PRASANTH Plan 89-year-old male with past medical history of HFrEF (LVEF 10 to 15%), CAD, s/p CABG x 4, hypertension, CKD stage IV, myelodysplastic syndrome on chemo and transfusions, hypothyroidism who presents to the ED with right lower extremity posteromedial abscess. # Right lower extremity posterior medial abscess status post I&D Patient initially developed right thigh fungal infection on 629 during previous hospitalization. Started on clotrimazole topical. Patient reports that he continued to apply the clotrimazole after discharge. Patient reports that he has noticed progressive swelling, redness, pain in this area. Physical exam showed nonfluctuant erythematous and warm area along the posterior medial aspect of the thigh. Right lower extremity CT without contrast showed low-density mass in the posteromedial thigh in adductor christiane muscle measuring 4.7 x 3.8 x 10.5 - Patient given Rocephin x 1 and 1 L NS in ED then started on vancomycin and pip-tazo -Patient underwent I&D by general surgeon, Dr. Arango without complication. 20 cc pus was removed. -Vancomycin was discontinued. Plan: - Follow-up with wound cultures - Continue Flagyl p.o. 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 Plan: -Speech therapy evaluation pending - Consulted neurology for further recommendations # Pancytopenia # Myelodysplastic syndrome Initial labs: WBC 0.8, hemoglobin 9.1, hematocrit 26.7, platelet 35. MCV within normal limits Patient was on Azocitidine for myelodysplastic syndrome and requires frequent transfusions and Filgastrim Family informed that chemotherapy was held last week. Family has been thinking of hospice for the patient. ANC count 100, 03/08 Plan: -Filgrastim 300 mcg subcutaneous x 1 -Tried reaching out oncology, for recommendations - Continue to monitor with CBC daily - Hold any anticoagulation due to low platelet count. DVT prophylaxis with SCDs only - Transfuse if hemoglobin < 7 - 1 unit platelets transfused - neutropenic precautions # ESTELLA on CKD stage IV Initial labs: BUN 65, creatinine 2.1 Patient's baseline creatinine usually 1.5-1.8 Given 1 L normal saline in ED Patient has a history of HFrEF, important not to overload patient with IVF Plan: - Continue to monitor with CMP daily - Avoid nephrotoxic agents - IVF: LR at 60 mL/h x 1 L # HFrEF # Hx Hypertension TTE 02/16/25: LVEF 10 to 15% Home meds (per 02/24/25 discharge summary): Carvedilol 3.215 mg PO BID, Entresto 0.5 mg PO BID, Midodrine 10 mg PO TID BP in ED: sBP 93-107 / dBP 52-57 Initial labs: BNP elevated 2003 Initial chest x-ray showed vascular congestion. Right upper extremity Doppler negative for DVT Plan: - Continue home Carvedilol, Midodrine. Continue to monitor on telemetry, can hold Coreg if hypotensive (BP < 90/70) - Hold Entresto (2/2 ESTELLA) - Fluid restrictions - 1.5 L / day - Daily weights - Strict I&Os - Careful hydration # Prolonged QTc Initial EKG showed QTc 531 Plan: - Continue to monitor on telemetry - Avoid QTc prolonging agents -4 gram mag given x 1 # Hypothyroidism Plan: - Continue home levothyroxine 25 mcg daily # Left buttock erythema Plan: - Frequent turns, continue to monitor - Wound care # Benign prostatic hypertrophy Plan - Continue home Tamsulosin 0.4 mg PO daily DVT prophylaxis: SCDs GI prophylaxis: Protonix 20 Diet: Cardiac diet Lines: Peripheral IV Code status: Full code Patient was seen and discussed with attending physician, Dr.Bishwakarma Dr. Esha MD, PGY 3 Attending Provider Attestation/Addendum I attest that I was physically present for the evaluation, physical examination, lab and imaging review of the patient with the residents. I discussed the case with the residents and agree with the findings and plans of care as documented above. Patient underwent I&D today with general surgery. Continues to have stuttering. Continues to have pain around his thigh, currently on analgesic regimen. Discussed with the family at bedside, patient has been following with Dr. Harman for myelodysplastic syndrome. His chemotherapy was recently stopped. Patient received 1 unit of platelet transfusion this morning before undergoing I&D. WBC count continues to decrease, 500 today. Has ANC of 100. Started patient on filgrastim. Speech therapy and neurology consult were done to evaluate for stuttering. Continues to be on broad-spectrum antibiotics for thigh abscess. Awaiting culture results. Frank August MD
[2025-03-08 09:01] LABS: Magnesium 1.4 mg/dL (1.6-2.6); Phosphorous 2.9 mg/dL (2.4-5.1)
--- NOTE | 2025-03-08 11:00 | SUR.PHASEI ---
1057 patient arrived to recovery room with nasal airway to right nare, sleepy, arousable to name, breathing unlabored, dressing to right upper thigh, no bleeding noted, report received from Kristian EUGENE and Dr. Paula.
--- NOTE | 2025-03-08 11:06 | ESOP_ITS ---
Date of Procedure 03/08/25 Pre Op Diagnosis Right thigh abscess Post Op Diagnosis Same Procedure Incision and drainage of right thigh abscess Findings Blood mixed with pus Procedure Description After discussion of risks and benefits with pt and son, pt was brought to OR and sedation was administered. The right thigh was exposed in a frog-leg fashion and prepped and draped in the usual sterile fashion. After timeout a longitudinal incision was made with a #15 blade at the area of most fluctuance. There was return of blood and the wound was probed with a hemostat as well as with a finger to break up any loculations. There was a mixture of blood and pus with approximately 20cc removed from which a culture was taken. There was minimal o ozing at the dermis which was controlled with electrocautery. The wound was packed with 1 iodoform packing and covered with gauze and an abdominal pad which was secured with a kerlix wrap and medipore tape. Pt was returned to supine position and brought to PACU in stable condition Pathology / specimen Other (Wound culture) Estimated Blood Loss 10 Surgeon Palma Austin MD Surgical Staff Operation Date: 03/08/25 10:00 Case Staff Anesthesiologist: Jian Paula
[2025-03-08] MEDS: fentaNYL CIT INJ 50 mCg/ML AMP 2ML 25 MCG IVP (11:30)
--- NOTE | 2025-03-08 11:57 | SUR.PHASEI ---
1145 patient is awake, alert, breathing unlabored, dressing to right thigh with no active bleeding, report given to Makayla EUGENE, patient transferred back to tele room 260.
[2025-03-08] MEDS: FILGRASTIM INJ (ZARXIO) 300 MCG/0.5 ML SYRINGE SC (12:07)
[2025-03-08] MEDS: Magnesium Sulfate 2 GM Ivpb 2 GM/50 ML BAG IV (12:08)
[2025-03-08] MEDS: CEFEPIME INJ 1 GM in SODIUM CHLORIDE 0.9% (Popper) 50 ML IV ×2 (12:08→20:39)
[2025-03-08] MEDS: HYDROcodone/APAP 5/325 TABLET 1 TAB PO (14:26)
[2025-03-08] MEDS: MIDODRINE 5 MG TABLET 10 MG PO ×2 (14:26→21:07)
--- NOTE | 2025-03-08 17:26 | PD.RESCONSUL ---
HPI Data of Consult Requesting Physician: Celio Mace DO Admitting Provider: Celio Mace DO Attending Provider: Celio Mace DO Primary Care Provider: Physician No Primary/Family Consult Narrative History of present illness: Mr. 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 Neurology consulted for parkinsonian features. Patient reports that his tremor and stuttering began during his previous hospitalization in January 2025. He denies history of tremor, neuromuscular disorders, hallucinations, family history of Parkinson's disease. His recent falls or trauma to head or neck. Patient examined at bedside. Patient reports that his symptoms began during his previous hospitalization and is worse when he is anxious. He denies recent falls, getting lost in familiar areas, nightmares, hallucinations. Patient notes that he has been stressed lately as his medical problems seem to be compounding, and he is unable to take care of his who has had multiple falls in the past. He lives in an assisted living facility. cc:: cc: Celio Mace DO Review of Systems Review of Systems Narrative Review of Systems: 14 point review of systems negative other than HPI Exam Vital Signs Temp Pulse Resp BP Pulse Ox O2 Del Method O2 Flow Rate 98.8 F 98 20 106/69 90 L Room Air 4 03/08/25 16:03/08/25 16:03/08/25 16:00 03/08/25 16:03/08/25 16:03/08/25 16:03/08/25 11:07 Narrative Exam General: No acute distress, well nourished Eye: PERRL, EOMI, normal conjunctiva, no scleral icterus HENT: Normocephalic, atraumatic, hearing intact to conversation at normal volume, moist oral mucosa Neck: Supple, non-tender, no JVD, no lymphadenopathy Lungs: Non-labored respirations, symmetric chest rise Heart: Peripheral pulses intact bilaterally Abdomen: Soft, non-tender, non-distended Musculoskeletal: Normal range of motion and strength Skin: Skin is warm, dry, no rashes or lesions. Psychiatric: Cooperative, appropriate mood and affect Neurologic: Mental status: Orientation: AOx1 Communication: Patient is cooperative and can follow simple instructions Language: Stuttering (increased when discussing topics that make him frustrated or anxious), normal rate and volume, comprehension intact Cranial nerves: CN II: Visual santoyo intact CN III: Pupils equal, round, and reactive to light CN III, IV, : No gaze deviation, no nystagmus Horizontal pursuit: intact Vertical pursuit: intact Ptosis: none CN V: Facial sensation to light touch intact bilaterally at the forehead, cheeks, and jaw line CN VII: Face symmetric, no facial droop appreciated CN VIII: Able to hear and respond to conversation at normal volume, intact to finger rub CN IX, X: Palate elevation symmetric, uvula midline CN XI: Head turn and shoulder shrug strong, symmetric bilaterally CN XII: Normal tongue protrusion without deviation, no fasciculations Motor: Normal bulk and tone No atrophy Action and intention tremor more prevalent in the right than left upper extremity, worse when discussing topics that make him frustrated or anxious. No cogwheel rigidity appreciated in upper extremities bilaterally Muscle strength: Shoulder abduction: R 5/5 L 5/5 Elbow flexion: R 5/5 L 5/5 Elbow extension: R 5/5 L 5/5 Hip flexion: R 5/5 L 5/5 Hip extension: R 5/5 L 5/5 Knee flexion: R 5/5 L 5/5 Knee extension: R 5/5 L 5/5 Sensory: RUE: Light touch intact LUE: Light touch intact RLE: Light touch intact LLE: Light touch intact Reflexes: Biceps (C5-6): R 2+ L 2+ Brachioradialis (C5-6): R 2+ L 2+ Triceps (C7-8): R 2+ L 2+ No clonus Plantar reflex downgoing bilaterally Results Labs 03/08/25 05:47 03/09/25 06:17 Labs: Short CBC 03/08/25 Range/Units 05:47 WBC 0.5 L* (3.8-10.6) Thou/mm3 Hgb 8.2 L (13.5-16.0) g/dL Hct 24.2 L (41.0-53.0) % Plt Count 30 L (140-440) Thou/mm3 BMP 03/08/25 05:47 Sodium 141 Potassium 5.0 Chloride 110 H Carbon Dioxide 20.3 BUN 51 H Creatinine 2.0 H Glucose 105 Calcium 8.4 Liver Function 03/08/25 Range/Units 05:47 Total Bilirubin 0.6 (0.3-1.2) mg/dL AST 13 (0-34) U/L ALT 19 (10-49) U/L Alkaline Phosphatase 59 (46-116) U/L Albumin 2.5 L (3.4-4.8) gm/dL Quality Measures Quality Measures VTE prophylaxis Advance care planning discussed with:: patient Medications Home Medications and Allergies Home Medications ?Medication ?Instructions ?Recorded ?Confirmed ?Type aspirin 81 mg tablet 81 mg PO DAILY 08/16/23 03/07/25 History Held on 02/24/25. Instructions: Resume on 03/03/25. Follow up with Cardiology. Hold due to pancytopenia. finasteride 5 mg tablet 5 mg PO DAILY 08/16/23 03/07/25 History fluticasone propionate 50 1 spray intranasal BID 08/16/23 03/07/25 History mcg/actuation nasal spray,suspension levothyroxine 25 mcg tablet 25 mcg PO DAILY 08/16/23 03/06/25 History pantoprazole 40 mg tablet,delayed 40 mg PO DAILY 08/16/23 03/07/25 History release tamsulosin 0.4 mg capsule 0.4 mg PO DAILY 08/16/23 03/06/25 History hydroxyzine HCl 50 mg tablet 50 mg PO QID PRN Anxiety 07/31/24 03/07/25 History spironolactone 25 mg tablet 25 mg PO QDAY 03/07/25 03/07/25 History Allergies Allergy/AdvReac Type Severity Reaction Status Date / Time No Known Allergies Allergy Verified 11/07/24 08:18 Visit Medications Acetaminophen (Acetaminophen 325 Mg Tablet) 650 mg PO Q6H PRN; Protocol PRN Reason: Fever > 100.3 or pain Stop: 04/05/25 21:48 Hydrocodone Bitart/Acetaminophen (Hydrocodone/Apap 5/325 Tablet) 1 tab PO Q4HR PRN PRN Reason: PAIN 4-10 Stop: 03/13/25 14:14 Last Admin: 03/08/25 14:26 Dose: 1 tab Carvedilol (Carvedilol 3.125 Mg Tablet) 3.125 mg PO BID PRASANTH Stop: 04/06/25 08:59 Last Admin: 03/08/25 09:00 Dose: Not Given Cefepime HCl 1 gm/ Sodium (Chloride) 50 mls @ 100 mls/hr IV Q12HR PRASANTH Stop: 03/14/25 08:59 Last Admin: 03/08/25 12:08 Dose: 100 mls/hr Levothyroxine Sodium (Levothyroxine Sodium 25 Mcg Tablet) 25 mcg PO ACBR PRASANTH Stop: 04/06/25 08:59 Last Admin: 03/08/25 05:16 Dose: Not Given Metronidazole (Metronidazole 250 Mg Tablet) 500 mg PO TID [facility] Stop: 03/14/25 13:59 Last Admin: 03/08/25 14:25 Dose: 500 mg Midodrine (Midodrine 5 Mg Tablet) 10 mg PO TID PRASANTH Stop: 04/06/25 05:59 Last Admin: 03/08/25 14:26 Dose: 10 mg Ondansetron HCl (Ondansetron Inj 2 Mg/Ml Inj 2 Ml) 4 mg IVP Q6H PRN; Protocol PRN Reason: NAUSEA OR VOMITING Stop: 04/05/25 21:53 Pantoprazole Sodium (Pantoprazole Inj 40 Mg Vial) 20 mg IVP QDAY PRASANTH Stop: 04/06/25 08:59 Last Admin: 03/08/25 12:09 Dose: 20 mg Sennosides (Senna Tablet) 1 tab PO QDAY PRN; Protocol PRN Reason: constipation Stop: 04/05/25 21:53 Tamsulosin HCl (Tamsulosin Hcl 0.4 Mg Capsule) 0.4 mg PO DAILY [facility] Stop: 04/06/25 08:59 Last Admin: 03/08/25 09:30 Dose: Not Given Discontinued Medications Fentanyl Citrate (Fentanyl Cit Inj 50 Mcg/Ml Amp 2ml) 25 mcg IVP Q5MIN PRN PRN Reason: PAIN SCALE 4-10(Mod-Sev Stop: 03/08/25 12:42 Last Admin: 03/08/25 11:30 Dose: 25 mcg Filgrastim (Filgrastim Inj (Zarxio) 300 Mcg/0.5 Ml Syringe) 300 mcg SC X1 ONE Stop: 03/08/25 09:52 Last Admin: 03/08/25 12:07 Dose: 300 mcg Hydromorphone HCl (Hydromorphone Inj 2 Mg/Ml Vial) 0.5 mg IVP X1 ONE Stop: 03/07/25 09:50 Last Admin: 03/07/25 10:13 Dose: 0.5 mg Sodium Chloride (Ns) 1,000 mls @ 999 mls/hr IV .Q1H1M ONE Stop: 03/06/25 18:44 Last Infusion: 03/06/25 19:19 Dose: Infused Ceftriaxone Sodium/Dextrose (Rocephin/D5w 1gm Iv Premix) 1 gm in 50 mls @ 100 mls/hr IV X1 ONE Stop: 03/06/25 18:15 Last Infusion: 03/06/25 18:49 Dose: Infused Vancomycin/Sodium Chloride (Vancomycin/Ns 1 Gm Ivpb) 200 mls @ 120 mls/hr IV X1 ONE Stop: 03/06/25 22:05 Last Admin: 03/06/25 21:35 Dose: 120 mls/hr Piperacillin/Tazobactam/Dextrose (Zosyn) 3.375 gm in 50 mls @ 100 mls/hr IV X1 ONE Stop: 03/06/25 21:01 Last Infusion: 03/06/25 21:19 Dose: Infused Cefepime HCl 1 gm/ Sodium (Chloride) 50 mls @ 100 mls/hr IV X1 ONE Stop: 03/06/25 22:59 Last Admin: 03/06/25 23:45 Dose: 100 mls/hr Vancomycin/Sodium Chloride (Vancomycin/Ns 1 Gm Ivpb) 200 mls @ 120 mls/hr IV X1 ONE Stop: 03/07/25 00:09 Last Admin: 03/06/25 22:46 Dose: Not Given Metronidazole (Flagyl 500 Mg Iv) 500 mg in 100 mls @ 100 mls/hr IV X1 ONE Stop: 03/07/25 06:18 Last Admin: 03/07/25 05:30 Dose: 100 mls/hr Lactated Ringer's (Lactated Ringers) 500 mls @ 60 mls/hr IV .Q8H20M ONE Stop: 03/07/25 18:09 Last Admin: 03/07/25 10:22 Dose: 60 mls/hr Sodium Chloride (Ns) 250 mls @ 999 mls/hr IV .Q16M ONE Stop: 03/07/25 13:38 Last Admin: 03/07/25 13:30 Dose: 999 mls/hr Magnesium Sulfate (Magnesium Sulfate Ivpb) 2 gm in 50 mls @ 25 mls/hr IV X1 ONE Stop: 03/08/25 09:15 Last Admin: 03/08/25 12:08 Dose: 25 mls/hr Levothyroxine Sodium (Levothyroxine Sodium 25 Mcg Tablet) 25 mcg PO DAILY PRASANTH Stop: 04/06/25 08:59 Metronidazole (Metronidazole 250 Mg Tablet) 500 mg PO TID PRASANTH Stop: 03/14/25 05:59 Last Admin: 03/07/25 05:23 Dose: Not Given Midazolam HCl (Midazolam Inj 1 Mg/Ml Vial 2 Ml) 1 mg IVP Q5MIN PRN PRN Reason: ANXIETY Stop: 03/09/25 10:40 Pantoprazole Sodium (Pantoprazole Inj 40 Mg Vial) 40 mg IVP QDAY PRASANTH Stop: 04/06/25 08:59 Pharmacy Consult (Vancomycin Pharmacy To Dose 1 Each Each) 1 each IV QDAY PRN PRN Reason: CONSULT Stop: 04/06/25 08:59 Zinc Acetate/Diphenhydramine (Diphenhydramine/Zn Acet 2% Cr 30 Gm Tube) 0 gm TOP X1 ONE Stop: 03/07/25 16:35 Last Admin: 03/07/25 20:54 Dose: 1 applicatio Assessment & Plan Plan # Stuttering # Action tremor Symptoms began during previous hospitalization in January. Action tremor worse in right upper extremity than left, exacerbated when patient discusses topics that are anxiety provoking and are absent at rest. Neuroconsult initially for parkinsonian symptoms. Patient does not exhibit cogwheel rigidity or kinesia. No asterixis appreciated, LFT WNL DDX: Stress-induced tremor and stutter/psychogenic, medication induced parkinsonianism, cerebellar CVA, vitamin deficiency, electrolyte abnormality, hepatic/metabolic encephalipathy Plan: - Pending ammonia, thiamine, B12, folate, TSH # Right lower extremity posterior medial abscess s/p I&D Patient initially developed right thigh fungal infection on 629 during previous hospitalization. Started on clotrimazole topical. Patient reports that he continued to apply the clotrimazole after discharge. Patient reports that he has noticed progressive swelling, redness, pain in this area. Physical exam showed nonfluctuant erythematous and warm area along the posterior medial aspect of the thigh. Right lower extremity CT without contrast showed low-density mass in the posteromedial thigh in adductor christiane muscle measuring 4.7 x 3.8 x 10.5 - Patient given Rocephin x 1 and 1 L NS in ED then started on vancomycin and pip-tazo Plan: - Management per primary - Flagyl p.o. 500 every 8 hours, vancomycin (pharmacy dosing), and cefepime 1 g every 12 hours (renal dosing) # Pancytopenia # Myelodysplastic syndrome Initial labs: WBC 0.8, hemoglobin 9.1, hematocrit 26.7, platelet 35. MCV within normal limits Patient on Azocitidine for myelodysplastic syndrome and requires frequent transfusions and Filgastrim Plan: - Management per primary - Hold anticoagulation 2/2 low platelets # ESTELLA on CKD stage IV Initial labs: BUN 65, creatinine 2.1 Patient's baseline creatinine usually 1.5-1.8 Given 1 L normal saline in ED Patient has a history of HFrEF, important not to overload patient with IVF Plan: - Management per primary # HFrEF # Hx Hypertension TTE 02/16/25: LVEF 10 to 15% Home meds (per 02/24/25 discharge summary): Carvedilol 3.215 mg PO BID, Entresto 0.5 mg PO BID, Midodrine 10 mg PO TID BP in ED: sBP 93-107 / dBP 52-57 Initial labs: BNP elevated 2003 Initial chest x-ray showed vascular congestion. Right upper extremity Doppler negative for DVT Plan: - Management per primary # Prolonged QTc Initial EKG showed QTc 531 Plan: - Management per primary # Hypothyroidism Plan: - Management per primary - home levothyroxine 25 mcg daily Plan discussed with Dr. Divine Lozano, PGY1 Attending Provider Attestation/Addendum I independently reviewed the patient's record and agree with resident's findings, assessment and plan of care. Continue with current management for now until I examin the patient in person tomorrow
[2025-03-09] VITALS (14 sets, daily range): BP systolic 97–116; BP diastolic 54–74; PULSE 68–120; RESP 14–24; TEMP 36.1–36.6; O2SAT 97–100; BMI 22.1
[2025-03-09] MEDS: HYDROcodone/APAP 5/325 TABLET 1 TAB PO ×2 (00:02→21:58)
[2025-03-09] MEDS: LEVOTHYROXINE SODIUM 25 MCG TABLET PO (05:04)
[2025-03-09] MEDS: MIDODRINE 5 MG TABLET 10 MG PO ×3 (05:04→21:57)
[2025-03-09 06:55] LABS: INR 1.4 (0.9-1.3); Partial Thromboplastin Time 24.9 Seconds (22.0-36.0); Prothrombin Time 15.4 Seconds (9.0-12.2)
[2025-03-09 07:00] LABS: Alanine Aminotransferase 14 U/L (10-49); Albumin, Serum 2.5 gm/dL (3.4-4.8); Albumin/Globulin Ratio 0.6 (1.2-2.2); Alkaline Phosphatase 59 U/L (46-116); Anion Gap 9 (7-16); Aspartate Amino Transferase 12 U/L (0-34); BUN/Creatinine Ratio 26 Ratio (12-20); Bilirubin,Total 0.5 mg/dL (0.3-1.2); Blood Urea Nitrogen 52 mg/dL (9-23); Calcium 8.8 mg/dL (8.3-10.6); Calcium (Corrected) 10.0 mg/dL (8.5-10.1); Carbon Dioxide 20.4 mMol/L (20.0-31.0); Chloride 112 mMol/L (98-107); Creatinine (Component) 2.0 mg/dL (0.6-1.3); Estimated Creatinine Clearance 23.5 mL/min (>60); Globulin 4.4 gm/dL (2.3-3.5); Glucose 94 mg/dL (74-106); Magnesium 1.8 mg/dL (1.6-2.6); Osmolality,Calculated 295 (275-295); Phosphorous 3.9 mg/dL (2.4-5.1); Potassium 5.5 mMol/L (3.4-5.1); Sodium 141 mMol/L (136-145); Thyroid Stimulating Hormone 10.93 uIU/mL (0.55-4.78); Total Protein 6.9 gm/dL (5.7-8.2); Vancomycin,Random 33.7 mcg/mL; eGFR 32 See Note
[2025-03-09 07:03] LABS: Ammonia < 10 uMol/L (11-32)
[2025-03-09 07:25] LABS: Basophils # (Auto) 0.0 Thou/mm3 (0.0-0.2); Basophils % (Auto) 3 % (0-2.5); Eosinophils # (Auto) 0.0 Thou/mm3 (0.0-0.5); Eosinophils % (Auto) 3 % (0-10); Hematocrit 21.4 % (41.0-53.0); Immature Granulocytes Auto 0.21 Thou/mm3 (0.00-0.00); Lymphocytes # (Auto) 0.4 Thou/mm3 (1.0-4.8); Lymphocytes % (Auto) 51 % (10-50); Mean Corpuscular HGB Conc 34.1 g/dl (31.0-37.0); Mean Corpuscular Hemoglobin 28.2 pg (25.0-35.0); Mean Corpuscular Volume 83 fL (80-100); Monocytes # (Auto) 0.1 Thou/mm3 (0.0-0.8); Monocytes % (Auto) 8 % (0-12); Neutrophils # (Auto) 0.1 Thou/mm3 (1.8-7.7); Neutrophils % (Auto) 7 % (37-80); Nucleated Red Blood Cell # 0.00 Thou/mm3 (0.00-0.00); Nucleated Red Blood Cell % 0 /100 WBC (0); RDW Standard Deviation 49.0 fL (35.1-43.9); Red Blood Count 2.59 Miln/mm3 (4.50-5.90)
[2025-03-09 07:28] LABS: Folate 5.79 ng/mL (>5.38); Vitamin B12 1762 pg/mL (211-911)
[2025-03-09 07:49] LABS: Hemoglobin 7.3 g/dL (13.5-16.0); Platelet Count 32 Thou/mm3 (140-440); White Blood Count 0.7 Thou/mm3 (3.8-10.6)
[2025-03-09] MEDS: ALBUTEROL RT 2.5 MG/0.5 ML NEBU INH (08:13)
[2025-03-09] MEDS: CEFEPIME INJ 1 GM in SODIUM CHLORIDE 0.9% (Popper) 50 ML IV (08:45)
[2025-03-09] MEDS: SOD POLYSTYRENE SULFON SUSP 15 GM/60 ML BTL 30 GM PO (08:45)
[2025-03-09] MEDS: TAMSULOSIN HCL 0.4 MG CAPSULE PO (08:46)
--- NOTE | 2025-03-09 09:57 | ESPR_ITS ---
Documentation for date of: 03/09/25 Subjective Subjective Interval history: Patient was seen and examined at the bedside. No acute overnight events were reported. Patient stated that he still have pain in his wound and dressing has been changed. His IV line was placed in his finger which was dripping and nurse was informed. No fever spikes were reported. Blood pressure was soft this morning. Patient had mild tachypnea. Saturating well on 3 L NC. Labs showed mild improvement in white count 0.7. Repeat hemoglobin was 7.9. Platelet count 32. INR 1.4. Chemistry panel showed sodium 141. K: 5.5--> 4.4. Kayexalate was given. Kidney functions remain at creatinine of 2.0. Magnesium 1.8. Vitamin B12 1762. TSH 10.93. Oncologist recommended to give another dose of filgrastim and continue broad-spectrum antibiotics. Continue with wound care and antibiotics until we get wound cultures as per surgery recommendations. Levaquin was discontinued, will continue on broad-spectrum antibiotics Zosyn and doxycycline per oncology recommendations. albumin 25 g given x1 due to hypotension and low albumin. Neurology recommended buspirone 5 mg 3 times daily for anxiety. Patient will likely need wound care nurse to follow-up with wound as outpatient when you plan to discharge. Family was notified. Exam Vital Signs Temp Pulse Resp BP Pulse Ox O2 Del Method O2 Flow Rate 97.2 F 68 22 H 97/54 L 99 Nasal Cannula 3 03/09/25 04:00 03/09/25 08:41 03/09/25 08:14 03/09/25 08:41 03/09/25 08:14 03/09/25 04:00 03/09/25 08:14 Narrative Exam GENERAL APPEARANCE: Elderly frail-appearing male with stutter speech in no acute distress. Saturating well on room air. HEENT: NC, AT. Dry mucous membrane. EOMI, clear conjunctiva, oropharynx clear. NECK: Supple without lymphadenopathy. No stiffness or restricted ROM. HEART: Sinus tachycardia with regular rhythm with METEOROLOGICAL OBSERVER-D, normal S1/S2, no m/r/g LUNGS: CTAB, moving air well. No crackles or wheezes are heard. ABDOMEN: Soft, nontender, nondistended with good bowel sounds heard. BACK: No CVAT, no obvious deformity. EXTREMITIES: Medial thigh covered in surgical dressing after I&D. Upper extremity tremors noted. NEUROLOGICAL: Grossly nonfocal. Alert and oriented, moving all 4 extremities. resting tremors. CN not formally tested but appear grossly intact. Stuttering with speech. Skin: Medial thigh with fluctuant mass and erythema. Psych: Stuttering speech with appropriate mood and affect Objective Labs 03/10/25 13:09 03/10/25 04:27 Labs: Laboratory Results - last 24 hr 03/09/25 03/09/25 06:17 06:51 WBC 0.7 L* RBC 2.59 L Hgb 7.3 L Hct 21.4 L* MCV 83 MCH 28.2 MCHC 34.1 RDW Std Deviation 49.0 H Plt Count 32 L Neut % (Auto) 7 L Lymph % (Auto) 51 H Larue % (Auto) 8 Eos % (Auto) 3 Baso % (Auto) 3 H Neut # (Auto) 0.1 L Lymph # (Auto) 0.4 L Larue # (Auto) 0.1 Eos # (Auto) 0.0 Baso # (Auto) 0.0 Immature Gran # (Auto) 0.21 H Absolute Nucleated RBC 0.00 Immature Gran % 29 H Nucleated RBC % 0 PT 15.4 H INR 1.4 H APTT 24.9 Sodium 141 Potassium 5.5 H D Chloride 112 H Carbon Dioxide 20.4 Anion Gap 9 BUN 52 H Creatinine 2.0 H Estim Creat Clear Calc 23.5 L eGFR 32 L BUN/Creatinine Ratio 26 H Glucose 94 Calculated Osmolality 295 Calcium 8.8 Corrected Calcium 10.0 Phosphorus 3.9 Magnesium 1.8 Total Bilirubin 0.5 AST 12 ALT 14 Alkaline Phosphatase 59 Ammonia < 10 L Total Protein 6.9 Albumin 2.5 L Globulin 4.4 H Albumin/Globulin Ratio 0.6 L Vitamin B12 1762 H Folate 5.79 TSH 10.93 H D Random Vancomycin 33.7 Quality Measures Quality Measures VTE prophylaxis (SCDs) Advance care planning discussed with:: other Assessment & Plan Assessment Current Active Medications: Generic Name Dose Route Start Last Admin Trade Name Freq PRN Reason Stop Dose Admin Acetaminophen 650 mg 03/06/25 21:49 Acetaminophen 325 Mg Tablet PO 04/05/25 21:48 Q6H PRN Fever > 100.3 or pain Protocol Hydrocodone Bitart/Acetaminophen 1 tab 03/08/25 14:15 03/09/25 00:02 Hydrocodone/Apap 5/325 Tablet PO 03/13/25 14:14 1 tab Q4HR PRN Administration PAIN 4-10 Carvedilol 3.125 mg 03/07/25 09:00 03/09/25 08:41 Carvedilol 3.125 Mg Tablet PO 04/06/25 08:59 Not Given BID PRASANTH Levofloxacin/Dextrose 750 mg in 150 mls @ 100 mls/hr 03/09/25 10:00 Levaquin Ivpb IV 03/16/25 09:59 Q48H PRASANTH Levothyroxine Sodium 25 mcg 03/07/25 09:00 03/09/25 05:04 Levothyroxine Sodium 25 Mcg Tablet PO 04/06/25 08:59 25 mcg ACBR PRASANTH Administration Midodrine 10 mg 03/07/25 06:00 03/09/25 05:04 Midodrine 5 Mg Tablet PO 04/06/25 05:59 10 mg TID PRASANTH Administration Ondansetron HCl 4 mg 03/06/25 21:54 Ondansetron Inj 2 Mg/Ml Inj 2 Ml IVP 04/05/25 21:53 Q6H PRN NAUSEA OR VOMITING Protocol Pantoprazole Sodium 20 mg 03/07/25 09:00 03/09/25 08:46 Pantoprazole Inj 40 Mg Vial IVP 04/06/25 08:59 20 mg QDAY PRASANTH Administration Sennosides 1 tab 03/06/25 21:54 Senna Tablet PO 04/05/25 21:53 QDAY PRN constipation Protocol Tamsulosin HCl 0.4 mg 03/07/25 09:00 03/09/25 08:46 Tamsulosin Hcl 0.4 Mg Capsule PO 04/06/25 08:59 0.4 mg DAILY PRASANTH Administration Plan 89-year-old male with past medical history of HFrEF (LVEF 10 to 15%), CAD, s/p CABG x 4, hypertension, CKD stage IV, myelodysplastic syndrome on chemo and transfusions, hypothyroidism who presents to the ED with right lower extremity posteromedial abscess. #Right lower extremity posterior medial abscess status post I&D day 2 Patient initially developed right thigh fungal infection on 629 during previous hospitalization. Started on clotrimazole topical. Patient reports that he continued to apply the clotrimazole after discharge. Patient reports that he has noticed progressive swelling, redness, pain in this area. Physical exam showed nonfluctuant erythematous and warm area along the posterior medial aspect of the thigh. Right lower extremity CT without contrast showed low-density mass in the posteromedial thigh in adductor christiane muscle measuring 4.7 x 3.8 x 10.5 - Patient given Rocephin x 1 and 1 L NS in ED then started on vancomycin and pip-tazo -Patient underwent I&D by general surgeon, Dr. Arango without complication. 20 cc pus was removed. -Vancomycin was discontinued. ?MRSA screen negative ?Blood cultures negative x 48 hour ?ANC count 0.1 ?DC cefepime, Levaquin and Flagyl Plan ?Filgrastim 300 mcg given per oncology recs ?Changed to Zosyn 2.25 g and doxycycline 100 IV twice daily ?Urine culture grew Pseudomonas sensitive - Follow-up with wound cultures - Postop pain management # Hyperkalemia, resolved Potassium: 5.5 Plan ? Kayexalate given x 1 along with breathing treatment ? Kayexalate given x 1 ? Potassium dropped to 4.7 #Hyoptension -In setting of HFrEF ef 10-15% and MDS - Patient blood pressure is around 97/54 Plan: -Continue midodrine 10 mg 3 times daily -IV fluids were given initially during admission -IV albumin 25 g x 1 #UCx Psuedomonal - Continuing antiobiotics given immunocompromised state # Pancytopenia # Myelodysplastic syndrome Initial labs: WBC 0.8, hemoglobin 9.1, hematocrit 26.7, platelet 35. MCV within normal limits Patient was on Azocitidine for myelodysplastic syndrome and requires frequent transfusions and Filgastrim Family informed that chemotherapy was held last week. Family has been thinking of hospice for the patient. 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 -Recommended to consider giving filgrastim and transfuse blood and give broad- spectrum antibiotics as necessary per oncology recs - Continue to monitor with CBC daily - Hold any anticoagulation due to low platelet count. DVT prophylaxis with SCDs only - Transfuse if hemoglobin < 7 - neutropenic precautions # ESTELLA on CKD stage IV -Possible cardiorenal syndrome Initial labs: BUN 65, creatinine 2.1 Patient's baseline creatinine usually 1.5-1.8 Given 1 L normal saline in ED Patient has a history of HFrEF, important not to overload patient with IVF Plan: - Continue to monitor with CMP daily - Avoid nephrotoxic agents - IVF: LR at 60 mL/h x 1 L - Albumin 25 g given x 1 #Speech Stuttering #Essential tremors #? 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 ? Ammonia level less than 10, B12 1762, folate within normal limits. TSH 10.93. ?Pending thiamine and free T4 1.30 Plan: -Neurology recommended with buspirone 5 mg 3 times daily for anxiety -Speech therapy recommended Chopped food to optimize independence with meals. -Consulted neurology for further recommendations ?Neurology is following the case. Neurology considerations are likely related to stress-induced tremor and sttuter/psychogenic, medication induced parkinsonism, cerebellar CVA, vitamin deficiency, electrolyte abnormality ?Adjusted levothyroxine from 25 mcg to 50 mcg IV daily ? Follow-up with thyroid functions in 4 to 6 weeks #Subclinical hypothyroidism - Patient is already on levothyroxine 25 mcg - TSH 10.93, free T4 1.30 Plan: -Increase of dose of levothyroxine to 50 mcg # HFrEF, EF 10 to 15% # Hx Hypertension TTE 02/16/25: LVEF 10 to 15% Home meds (per 02/24/25 discharge summary): Carvedilol 3.215 mg PO BID, Entresto 0.5 mg PO BID, Midodrine 10 mg PO TID BP in ED: sBP 93-107 / dBP 52-57 Initial labs: BNP elevated 2003 Initial chest x-ray showed vascular congestion. Right upper extremity Doppler negative for DVT Plan: -Holding home Coreg due to soft blood pressure - Continue midodrine. Continue to monitor on telemetry, can hold Coreg if hypotensive (BP < 90/70) - Hold Entresto (2/2 ESTELLA) - Fluid restrictions - 1.5 L / day - Daily weights - Strict I&Os - Careful hydration #Elevated Vitamin B12 - Vitamin B12 1762 Plan: -Outpatient follow-up # Prolonged QTc Initial EKG showed QTc 531 Plan: - Continue to monitor on telemetry - Avoid QTc prolonging agents - replete electrolytes as necessary # Left buttock erythema Plan: - Frequent turns, continue to monitor - Wound care # Benign prostatic hypertrophy Plan - Continue home Tamsulosin 0.4 mg PO daily DVT prophylaxis: SCDs GI prophylaxis: Protonix 20 Diet: Cardiac diet Lines: Peripheral IV Code status: Full code Patient was seen and discussed with attending physician, Dr.Bishwakarma Dr. Esha MD, PGY 3 Attending Provider Attestation/Addendum I attest that I was physically present for the evaluation, physical examination, lab and imaging review of the patient with the residents. I discussed the case with the residents and agree with the findings and plans of care as documented above. At bedside today, patient continues to complain of pain around his right thigh. His wound dressing has been changed. Continues to be on broad-spectrum IV antibiotics with IV Zosyn and doxycycline. Urine culture grew Pseudomonas but only has 10,000-20,000 colonies. Wound culture pending. Discussed with oncology regarding pancytopenia, recommended that we can continue filgrastim for 1 more dose and recommended to transfuse if hemoglobin drops. Patient continues to be on neutropenic precautions and we will monitor his CBC closely. Neurology has been following for stuttering, recommended buspirone. Started on soft diet as recommended by speech therapy. TSH noted to be high, levothyroxine dosing increased to 50 mcg daily. Frank August MD
[2025-03-09 11:01] LABS: Slide Review Platelets confirmed
[2025-03-09 11:34] LABS: Hematocrit 23.6 % (41.0-53.0)
[2025-03-09 11:36] LABS: Hemoglobin 7.9 g/dL (13.5-16.0)
--- NOTE | 2025-03-09 11:44 | PC.SS ---
Update: Patient is pending wound and UA cultures.
[2025-03-09] MEDS: LEVOFLOXACIN/D5W 750MG IVPB 750 MG/150 ML BAG 100 MG IV (12:26)
--- NOTE | 2025-03-09 12:45 | ESPR_ITS ---
Documentation for date of: 03/09/25 Subjective Subjective Interval history: Patient seen at bedside, continues to stutter and have bilateral upper extremity tremors that is exacerbated upon discussing stressful topics. Patient was able to control tremors with focus. Denies any symptoms. Exam Vital Signs Temp Pulse Resp BP Pulse Ox O2 Del Method O2 Flow Rate 97.3 F 68 22 H 97/54 L 99 Nasal Cannula 3 03/09/25 08:00 03/09/25 08:41 03/09/25 08:14 03/09/25 08:41 03/09/25 08:14 03/09/25 08:00 03/09/25 08:14 Narrative Exam General: No acute distress, well nourished Eye: PERRL, EOMI, normal conjunctiva, no scleral icterus HENT: Normocephalic, atraumatic, hearing intact to conversation at normal volume, moist oral mucosa Neck: Supple, non-tender, no JVD, no lymphadenopathy Lungs: Non-labored respirations, symmetric chest rise Heart: Peripheral pulses intact bilaterally Abdomen: Soft, non-tender, non-distended Musculoskeletal: Normal range of motion and strength Skin: Skin is warm, dry, no rashes or lesions. Psychiatric: Cooperative, appropriate mood and affect Neurologic: Mental status: Orientation: AOx1 Communication: Patient is cooperative and can follow simple instructions Language: Stuttering (increased when discussing topics that make him frustrated or anxious, decreased when focusing), normal rate and volume, comprehension intact Cranial nerves: CN II: Visual santoyo intact CN III: Pupils equal, round, and reactive to light CN III, IV, : No gaze deviation, no nystagmus Horizontal pursuit: intact Vertical pursuit: intact Ptosis: none CN V: Facial sensation to light touch intact bilaterally at the forehead, cheeks, and jaw line CN VII: Face symmetric, no facial droop appreciated CN VIII: Able to hear and respond to conversation at normal volume, intact to finger rub CN IX, X: Palate elevation symmetric, uvula midline CN XI: Head turn and shoulder shrug strong, symmetric bilaterally CN XII: Normal tongue protrusion without deviation, no fasciculations Motor: Normal bulk and tone No atrophy Action and intention tremor more prevalent in the right than left upper extremity, worse when discussing topics that make him frustrated or anxious, improved with focus. No cogwheel rigidity appreciated in upper extremities bilaterally Muscle strength: Elbow flexion: R 5/5 L 5/5 Elbow extension: R 5/5 L 5/5 Hip flexion: R 5/5 L 5/5 Hip extension: R 5/5 L 5/5 Sensory: RUE: Light touch intact LUE: Light touch intact RLE: Light touch intact LLE: Light touch intact Objective Labs 03/11/25 06:10 03/11/25 06:10 Labs: Laboratory Results - last 24 hr 03/09/25 03/09/25 03/09/25 06:17 06:51 11:02 WBC 0.7 L* RBC 2.59 L Hgb 7.3 L 7.9 L Hct 21.4 L* 23.6 L MCV 83 MCH 28.2 MCHC 34.1 RDW Std Deviation 49.0 H Plt Count 32 L Neut % (Auto) 7 L Lymph % (Auto) 51 H Lassen % (Auto) 8 Eos % (Auto) 3 Baso % (Auto) 3 H Neut # (Auto) 0.1 L Lymph # (Auto) 0.4 L Lassen # (Auto) 0.1 Eos # (Auto) 0.0 Baso # (Auto) 0.0 Immature Gran # (Auto) 0.21 H Absolute Nucleated RBC 0.00 Immature Gran % 29 H Nucleated RBC % 0 PT 15.4 H INR 1.4 H APTT 24.9 Sodium 141 Potassium 5.5 H D Chloride 112 H Carbon Dioxide 20.4 Anion Gap 9 BUN 52 H Creatinine 2.0 H Estim Creat Clear Calc 23.5 L eGFR 32 L BUN/Creatinine Ratio 26 H Glucose 94 Calculated Osmolality 295 Calcium 8.8 Corrected Calcium 10.0 Phosphorus 3.9 Magnesium 1.8 Total Bilirubin 0.5 AST 12 ALT 14 Alkaline Phosphatase 59 Ammonia < 10 L Total Protein 6.9 Albumin 2.5 L Globulin 4.4 H Albumin/Globulin Ratio 0.6 L Vitamin B12 1762 H Folate 5.79 TSH 10.93 H D Random Vancomycin 33.7 Misc Test Result Platelets confirmed Quality Measures Quality Measures VTE prophylaxis (SCDs) Advance care planning discussed with:: patient Assessment & Plan Assessment Current Active Medications: Generic Name Dose Route Start Last Admin Trade Name Freq PRN Reason Stop Dose Admin Acetaminophen 650 mg 03/06/25 21:49 Acetaminophen 325 Mg Tablet PO 04/05/25 21:48 Q6H PRN Fever > 100.3 or pain Protocol Hydrocodone Bitart/Acetaminophen 1 tab 03/08/25 14:15 03/09/25 00:02 Hydrocodone/Apap 5/325 Tablet PO 03/13/25 14:14 1 tab Q4HR PRN Administration PAIN 4-10 Carvedilol 3.125 mg 03/07/25 09:00 03/09/25 08:41 Carvedilol 3.125 Mg Tablet PO 04/06/25 08:59 Not Given BID PRASANTH Levofloxacin/Dextrose 750 mg in 150 mls @ 100 mls/hr 03/09/25 10:00 03/09/25 12:26 Levaquin Ivpb IV 03/16/25 09:59 100 mls/hr Q48H PRASANTH Administration Levothyroxine Sodium 25 mcg 03/07/25 09:00 03/09/25 05:04 Levothyroxine Sodium 25 Mcg Tablet PO 04/06/25 08:59 25 mcg ACBR PRASANTH Administration Midodrine 10 mg 03/07/25 06:00 03/09/25 05:04 Midodrine 5 Mg Tablet PO 04/06/25 05:59 10 mg TID PRASANTH Administration Ondansetron HCl 4 mg 03/06/25 21:54 Ondansetron Inj 2 Mg/Ml Inj 2 Ml IVP 04/05/25 21:53 Q6H PRN NAUSEA OR VOMITING Protocol Pantoprazole Sodium 20 mg 03/10/25 09:00 Pantoprazole 20 Mg Tablet PO 04/09/25 08:59 QDAY PRASANTH Protocol Sennosides 1 tab 03/06/25 21:54 Senna Tablet PO 04/05/25 21:53 QDAY PRN constipation Protocol Tamsulosin HCl 0.4 mg 03/07/25 09:00 03/09/25 08:46 Tamsulosin Hcl 0.4 Mg Capsule PO 04/06/25 08:59 0.4 mg DAILY PRASANTH Administration Plan # Stuttering # Action tremor Symptoms began during previous hospitalization in January. Action tremor worse in right upper extremity than left, exacerbated when patient discusses topics that are anxiety provoking and are absent at rest or with focus. Neuroconsult initially for parkinsonian symptoms. Patient does not exhibit cogwheel rigidity or kinesia. No asterixis appreciated. Symptom resolution when patient takes a deep breath, calms himself, and focuses on what he wants to say. LFT WNL, Ammonia <10, B12 high 1762, folate WNL, TSH high 10.93 DDX: Stress-induced tremor and stutter/psychogenic, medication induced parkinsonianism, cerebellar CVA, vitamin deficiency, electrolyte abnormality, hepatic/metabolic encephalopathy. No concern for Parkinson dz at this time.. Plan: - Pending thiamine, free T4 - Started Buspar 5 mg TID for anxiety - F/U outpatient with Dr. Haskins # Right lower extremity posterior medial abscess s/p I&D Patient initially developed right thigh fungal infection on 629 during previous hospitalization. Started on clotrimazole topical. Patient reports that he continued to apply the clotrimazole after discharge. Patient reports that he has noticed progressive swelling, redness, pain in this area. Physical exam showed nonfluctuant erythematous and warm area along the posterior medial aspect of the thigh. Right lower extremity CT without contrast showed low-density mass in the posteromedial thigh in adductor christiane muscle measuring 4.7 x 3.8 x 10.5 - Patient given Rocephin x 1 and 1 L NS in ED then started on vancomycin and pip-tazo Plan: - Management per primary - Flagyl p.o. 500 every 8 hours, vancomycin (pharmacy dosing), and cefepime 1 g every 12 hours (renal dosing) # Pancytopenia # Myelodysplastic syndrome Initial labs: WBC 0.8, hemoglobin 9.1, hematocrit 26.7, platelet 35. 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 Right upper extremity Doppler negative for DVT Plan: - Management per primary # Prolonged QTc Initial EKG showed QTc 531 Plan: - Management per primary # Hypothyroidism TSH high 10.93 Plan: - Pending free T4 - Management per primary - increased levothyroxine dose from 25 mcg daily to 50 mcg daily (inital dose of patient with CAD), monitor for angina Plan discussed with Dr. Divine Lozano, PGY1 Attending Provider Attestation/Addendum I personally have seen and examined the patient at the bedside and I agreed with the resident's findings, assessment and plan of care. His tremors and staccato speech are anxiety driven. No evidence of Parkinson's noted. He does not have essential tremor. Will add buspirone 5 mg 3 times a day.
[2025-03-09 12:54] LABS: Free T4 (Free Thyroxine) 1.30 ng/dL (0.89-1.76)
[2025-03-09] MEDS: FILGRASTIM INJ (ZARXIO) 300 MCG/0.5 ML SYRINGE SC (14:08)
[2025-03-09 14:15] LABS: Potassium 4.7 mMol/L (3.4-5.1)
--- NOTE | 2025-03-09 15:35 | PC.SS ---
Update: [employer] notified by neighborhood planner that if patient discharges home patient will require referral to outpatient wound clinic and home health.
[2025-03-09] MEDS: ALBUMIN HUMAN 25% IVPB 25 GM/100 ML BTL IV (16:22)
[2025-03-09] MEDS: PIPER/TAZO 3.375 GM PREMIX 3.375 GM/50 ML BAG IV ×2 (16:22→21:58)
[2025-03-09] MEDS: DOXYCYCLINE INJ 100 MG in SODIUM CHLORIDE 0.9% (POP) 100 ML IV (21:57)
[2025-03-10] VITALS (15 sets, daily range): BP systolic 97–133; BP diastolic 50–79; PULSE 70–100; RESP 14–30; TEMP 35.8–36.5; O2SAT 98–100
[2025-03-10] MEDS: LEVOTHYROXINE SODIUM 25 MCG TABLET 50 MCG PO (05:20)
[2025-03-10] MEDS: MIDODRINE 5 MG TABLET 10 MG PO ×3 (05:21→21:15)
[2025-03-10] MEDS: PIPER/TAZO 3.375 GM PREMIX 3.375 GM/50 ML BAG IV ×3 (05:21→21:17)
[2025-03-10 06:01] LABS: Basophils # (Auto) 0.0 Thou/mm3 (0.0-0.2); Basophils % (Auto) 2 % (0-2.5); Eosinophils # (Auto) 0.0 Thou/mm3 (0.0-0.5); Eosinophils % (Auto) 3 % (0-10); Hematocrit 22.0 % (41.0-53.0); Immature Granulocytes Auto 0.03 Thou/mm3 (0.00-0.00); Lymphocytes # (Auto) 0.4 Thou/mm3 (1.0-4.8); Lymphocytes % (Auto) 65 % (10-50); Mean Corpuscular HGB Conc 33.6 g/dl (31.0-37.0); Mean Corpuscular Hemoglobin 28.4 pg (25.0-35.0); Mean Corpuscular Volume 84 fL (80-100); Monocytes # (Auto) 0.0 Thou/mm3 (0.0-0.8); Monocytes % (Auto) 4 % (0-12); Neutrophils # (Auto) 0.2 Thou/mm3 (1.8-7.7); Neutrophils % (Auto) 22 % (37-80); Nucleated Red Blood Cell # 0.00 Thou/mm3 (0.00-0.00); Nucleated Red Blood Cell % 0 /100 WBC (0); RDW Standard Deviation 50.8 fL (35.1-43.9); Red Blood Count 2.61 Miln/mm3 (4.50-5.90)
[2025-03-10 06:12] LABS: Alanine Aminotransferase 10 U/L (10-49); Albumin, Serum 2.5 gm/dL (3.4-4.8); Albumin/Globulin Ratio 0.5 (1.2-2.2); Alkaline Phosphatase 66 U/L (46-116); Anion Gap 8 (7-16); Aspartate Amino Transferase < 10 U/L (0-34); BUN/Creatinine Ratio 29 Ratio (12-20); Bilirubin,Total 0.6 mg/dL (0.3-1.2); Blood Urea Nitrogen 56 mg/dL (9-23); Calcium 8.8 mg/dL (8.3-10.6); Calcium (Corrected) 10.0 mg/dL (8.5-10.1); Carbon Dioxide 21.9 mMol/L (20.0-31.0); Chloride 114 mMol/L (98-107); Creatinine (Component) 1.9 mg/dL (0.6-1.3); Estimated Creatinine Clearance 24.7 mL/min (>60); Globulin 4.6 gm/dL (2.3-3.5); Glucose 119 mg/dL (74-106); Magnesium 1.8 mg/dL (1.6-2.6); Osmolality,Calculated 303 (275-295); Phosphorous 4.2 mg/dL (2.4-5.1); Potassium 4.7 mMol/L (3.4-5.1); Sodium 144 mMol/L (136-145); Total Protein 7.1 gm/dL (5.7-8.2); eGFR 34 See Note
[2025-03-10 06:26] LABS: Hemoglobin 7.4 g/dL (13.5-16.0); White Blood Count 0.7 Thou/mm3 (3.8-10.6)
[2025-03-10 06:27] LABS: Platelet Count 29 Thou/mm3 (140-440)
--- NOTE | 2025-03-10 07:14 | ESPR_ITS ---
Documentation for date of: 03/10/25 Subjective Subjective Interval history: Patient seen at bedside accompanied by family. Patient denies any symptoms. Patient was able to sit up on edge of bed with support. Exam Vital Signs Temp Pulse Resp BP Pulse Ox O2 Del Method O2 Flow Rate 97.0 F 80 21 H 112/64 99 Nasal Cannula 3 03/10/25 04:00 03/10/25 05:21 03/10/25 04:00 03/10/25 05:21 03/10/25 04:00 03/10/25 04:00 03/10/25 04:00 Narrative Exam General: No acute distress, well nourished Eye: PERRL, EOMI, normal conjunctiva, no scleral icterus HENT: Normocephalic, atraumatic, hearing intact to conversation at normal volume, moist oral mucosa Neck: Supple, non-tender, no JVD, no lymphadenopathy Lungs: Non-labored respirations, symmetric chest rise Heart: Peripheral pulses intact bilaterally Abdomen: Soft, non-tender, non-distended Musculoskeletal: Normal range of motion and strength Skin: Skin is warm, dry, no rashes or lesions. Psychiatric: Cooperative, appropriate mood and affect Neurologic: Mental status: Orientation: AOx2 Communication: Patient is cooperative and can follow simple instructions Language: Stuttering, improved from previous exam (increased when discussing topics that make him frustrated or anxious, decreased when focusing), normal rate and volume, comprehension intact Cranial nerves: CN II: Visual santoyo intact CN III: Pupils equal, round, and reactive to light CN III, IV, : No gaze deviation, no nystagmus Horizontal pursuit: intact Vertical pursuit: intact Ptosis: none CN V: Facial sensation to light touch intact bilaterally at the forehead, cheeks, and jaw line CN VII: Face symmetric, no facial droop appreciated CN VIII: Able to hear and respond to conversation at normal volume, intact to finger rub CN IX, X: Palate elevation symmetric, uvula midline CN XI: Head turn and shoulder shrug strong, symmetric bilaterally CN XII: Normal tongue protrusion without deviation, no fasciculations Motor: Normal bulk and tone No atrophy Action and intention tremor (improved from previous exam) more prevalent in the right than left upper extremity, worse when discussing topics that make him frustrated or anxious, improved with focus. No cogwheel rigidity appreciated in upper extremities bilaterally Muscle strength: Elbow flexion: R 5/5 L 5/5 Elbow extension: R 5/5 L 5/5 Hip flexion: R 5/5 L 5/5 Hip extension: R 5/5 L 5/5 Able to sit on edge of bed with support Sensory: RUE: Light touch intact LUE: Light touch intact RLE: Light touch intact LLE: Light touch intact Objective Labs 03/11/25 06:10 03/11/25 06:10 Labs: Laboratory Results - last 24 hr 03/09/25 03/09/25 03/09/25 06:17 06:51 11:02 WBC 0.7 L* RBC 2.59 L Hgb 7.3 L 7.9 L Hct 21.4 L* 23.6 L MCV 83 MCH 28.2 MCHC 34.1 RDW Std Deviation 49.0 H Plt Count 32 L Neut % (Auto) 7 L Lymph % (Auto) 51 H Isabella % (Auto) 8 Eos % (Auto) 3 Baso % (Auto) 3 H Neut # (Auto) 0.1 L Lymph # (Auto) 0.4 L Isabella # (Auto) 0.1 Eos # (Auto) 0.0 Baso # (Auto) 0.0 Immature Gran # (Auto) 0.21 H Absolute Nucleated RBC 0.00 Immature Gran % 29 H Nucleated RBC % 0 Sodium 141 Potassium 5.5 H D Chloride 112 H Carbon Dioxide 20.4 Anion Gap 9 BUN 52 H Creatinine 2.0 H Estim Creat Clear Calc 23.5 L eGFR 32 L BUN/Creatinine Ratio 26 H Glucose 94 Calculated Osmolality 295 Calcium 8.8 Corrected Calcium 10.0 Phosphorus 3.9 Magnesium 1.8 Total Bilirubin 0.5 AST 12 ALT 14 Alkaline Phosphatase 59 Total Protein 6.9 Albumin 2.5 L Globulin 4.4 H Albumin/Globulin Ratio 0.6 L Vitamin B12 1762 H Folate 5.79 TSH 10.93 H D Free T4 1.30 Random Vancomycin 33.7 Misc Test Result Platelets confirmed 03/09/25 03/10/25 13:38 04:27 WBC 0.7 L* RBC 2.61 L Hgb 7.4 L Hct 22.0 L MCV 84 MCH 28.4 MCHC 33.6 RDW Std Deviation 50.8 H Plt Count 29 L* Neut % (Auto) 22 L Lymph % (Auto) 65 H Isabella % (Auto) 4 Eos % (Auto) 3 Baso % (Auto) 2 Neut # (Auto) 0.2 L Lymph # (Auto) 0.4 L Isabella # (Auto) 0.0 Eos # (Auto) 0.0 Baso # (Auto) 0.0 Immature Gran # (Auto) 0.03 H Absolute Nucleated RBC 0.00 Immature Gran % 4 H Nucleated RBC % 0 Sodium 144 Potassium 4.7 D 4.7 Chloride 114 H Carbon Dioxide 21.9 Anion Gap 8 BUN 56 H Creatinine 1.9 H Estim Creat Clear Calc 24.7 L eGFR 34 L BUN/Creatinine Ratio 29 H Glucose 119 H Calculated Osmolality 303 H Calcium 8.8 Corrected Calcium 10.0 Phosphorus 4.2 Magnesium 1.8 Total Bilirubin 0.6 AST < 10 ALT 10 Alkaline Phosphatase 66 Total Protein 7.1 Albumin 2.5 L Globulin 4.6 H Albumin/Globulin Ratio 0.5 L Vitamin B12 Folate TSH Free T4 Random Vancomycin Misc Test Result Quality Measures Quality Measures VTE prophylaxis (SCDs) Advance care planning discussed with:: patient Assessment & Plan Assessment Current Active Medications: Generic Name Dose Route Start Last Admin Trade Name Freq PRN Reason Stop Dose Admin Acetaminophen 650 mg 03/06/25 21:49 Acetaminophen 325 Mg Tablet PO 04/05/25 21:48 Q6H PRN Fever > 100.3 or pain Protocol Hydrocodone Bitart/Acetaminophen 1 tab 03/08/25 14:15 03/09/25 21:58 Hydrocodone/Apap 5/325 Tablet PO 03/13/25 14:14 1 tab Q4HR PRN Administration PAIN 4-10 Buspirone HCl 5 mg 03/09/25 17:00 03/10/25 05:20 Buspirone Hcl 5 Mg Tablet PO 04/08/25 16:59 5 mg TID PRASANTH Administration Carvedilol 3.125 mg 03/07/25 09:00 03/09/25 08:41 Carvedilol 3.125 Mg Tablet PO 04/06/25 08:59 Not Given BID PRASANTH Piperacillin/Tazobactam/Dextrose 3.375 gm in 50 mls @ 12.5 mls/hr 03/09/25 22:00 03/10/25 05:21 Zosyn IV 03/16/25 21:59 12.5 mls/hr Q8HR PRASANTH Administration Protocol Doxycycline Hyclate 100 mg/ 100 mls @ 100 mls/hr 03/09/25 21:00 03/09/25 21:57 Sodium Chloride IV 03/16/25 20:59 100 mls/hr BID PRASANTH Administration Levothyroxine Sodium 50 mcg 03/10/25 06:00 03/10/25 05:20 Levothyroxine Sodium 25 Mcg Tablet PO 04/09/25 05:59 50 mcg ACBR PRASANTH Administration Midodrine 10 mg 03/07/25 06:00 03/10/25 05:21 Midodrine 5 Mg Tablet PO 04/06/25 05:59 10 mg TID PRASANTH Administration Ondansetron HCl 4 mg 03/06/25 21:54 Ondansetron Inj 2 Mg/Ml Inj 2 Ml IVP 04/05/25 21:53 Q6H PRN NAUSEA OR VOMITING Protocol Pantoprazole Sodium 20 mg 03/10/25 09:00 Pantoprazole 20 Mg Tablet PO 04/09/25 08:59 QDAY PRASANTH Protocol Sennosides 1 tab 03/06/25 21:54 Senna Tablet PO 04/05/25 21:53 QDAY PRN constipation Protocol Tamsulosin HCl 0.4 mg 03/07/25 09:00 03/09/25 08:46 Tamsulosin Hcl 0.4 Mg Capsule PO 04/06/25 08:59 0.4 mg DAILY PRASANTH Administration Plan # Stuttering # Action tremor Symptoms began during previous hospitalization in January. Action tremor worse in right upper extremity than left, exacerbated when patient discusses topics that are anxiety provoking and are absent at rest or with focus. Neuroconsult initially for parkinsonian symptoms. Patient does not exhibit cogwheel rigidity or kinesia. No asterixis appreciated. Symptom resolution when patient takes a deep breath, calms himself, and focuses on what he wants to say. LFT WNL, Ammonia <10, B12 high 1762, folate WNL, TSH high 10.93, free T4 WNL DDX: Stress-induced tremor and stutter/psychogenic, medication induced parkinsonianism, cerebellar CVA, vitamin deficiency, electrolyte abnormality, hepatic/metabolic encephalopathy. No concern for Parkinson dz at this time. Plan: - Pending thiamine - Continnue Buspar 5 mg TID for anxiety, tolerating appropriately - F/U outpatient with Dr. Haskins # Right lower extremity posterior medial abscess s/p I&D Patient initially developed right thigh fungal infection on 629 during previous hospitalization. Started on clotrimazole topical. Patient reports that he continued to apply the clotrimazole after discharge. Patient reports that he has noticed progressive swelling, redness, pain in this area. Physical exam showed nonfluctuant erythematous and warm area along the posterior medial aspect of the thigh. Right lower extremity CT without contrast showed low-density mass in the posteromedial thigh in adductor christiane muscle measuring 4.7 x 3.8 x 10.5 - Patient given Rocephin x 1 and 1 L NS in ED then started on vancomycin and pip-tazo Plan: - Management per primary # Pancytopenia # Myelodysplastic syndrome Initial labs: WBC 0.8, hemoglobin 9.1, hematocrit 26.7, platelet 35. 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 Right upper extremity Doppler negative for DVT Plan: - Management per primary # Prolonged QTc Initial EKG showed QTc 531 Plan: - Management per primary # Hypothyroidism TSH high 10.93 Plan: - Pending free T4 - Management per primary - increased levothyroxine dose from 25 mcg daily to 50 mcg daily (inital dose of patient with CAD), monitor for angina Plan discussed with Dr. Divine Lozano, PGY1 Attending Provider Attestation/Addendum I personally have seen and examined the patient at the bedside and I agreed with the resident's findings, assessment and plan of care. He is intermittent tremors and staccato speech are anxiety driven. Do not think patient has Parkinson's disease or essential tremor. Continue with BuSpar.
--- NOTE | 2025-03-10 07:31 | ESPR_ITS ---
<Statement entered by Paxton Gilliam MD - 03/10/25 17:38> Patient seen and examined at bedside, no acute overnight events. I discussed and supervised with the legal intern physician who took care of this patient. I personally saw and examined the patient. I agree with most of the assessment and plan. 1 unit PRBC transfused for Hg <8 and CAD with stents. Wound abscess grew MRSA, urine Cx pseudomonas, treatment with doxy and zosyn. Plan of care discussed with attending Dr. August. Paxton Gilliam MD PGY-2 Documentation for date of: 03/10/25 Subjective Subjective Interval history: No acute events overnight Wound cultures positive for MRSA Patient continues on buspirone for anxiety, tremors, and stutter Exam Vital Signs Temp Pulse Resp BP Pulse Ox O2 Del Method O2 Flow Rate 97.0 F 80 21 H 112/64 99 Nasal Cannula 3 03/10/25 04:00 03/10/25 05:21 03/10/25 04:00 03/10/25 05:21 03/10/25 04:00 03/10/25 04:00 03/10/25 04:00 24-hour vital signs reviewed within normal limits patient satting well on 3 L nasal cannula Narrative Exam GENERAL APPEARANCE: Elderly frail-appearing male with stutter speech in no acute distress. Very anxious at baseline. Saturating well on room air. HEENT: NC, AT. Dry mucous membrane. EOMI, clear conjunctiva, oropharynx clear. NECK: No stiffness or restricted ROM. HEART: Regular rate and regular rhythm with BILLET STRAIGHTENER-D, normal S1/S2, no m/r/g LUNGS: CTAB, moving air well. No crackles or wheezes are heard. ABDOMEN: Soft, nontender, nondistended with good bowel sounds heard. BACK: No CVAT, no obvious deformity. EXTREMITIES: Medial thigh covered in surgical dressing after I&D. upper extremity tremors noted. NEUROLOGICAL: Grossly nonfocal. Alert and oriented, moving all 4 extremities. Patient has action tremor no resting tremor noted. CN not formally tested but appear grossly intact. Stuttering with speech. Skin: Right medial thigh with erythema. Psych: Stuttering speech with appropriate mood and affect Objective Labs 03/12/25 07:45 03/13/25 05:44 Labs: Laboratory Results - last 24 hr 03/09/25 03/09/25 03/09/25 06:17 06:51 11:02 WBC 0.7 L* RBC 2.59 L Hgb 7.3 L 7.9 L Hct 21.4 L* 23.6 L MCV 83 MCH 28.2 MCHC 34.1 RDW Std Deviation 49.0 H Plt Count 32 L Neut % (Auto) 7 L Lymph % (Auto) 51 H Hamilton % (Auto) 8 Eos % (Auto) 3 Baso % (Auto) 3 H Neut # (Auto) 0.1 L Lymph # (Auto) 0.4 L Hamilton # (Auto) 0.1 Eos # (Auto) 0.0 Baso # (Auto) 0.0 Immature Gran # (Auto) 0.21 H Absolute Nucleated RBC 0.00 Immature Gran % 29 H Nucleated RBC % 0 Sodium 141 Potassium 5.5 H D Chloride 112 H Carbon Dioxide 20.4 Anion Gap 9 BUN 52 H Creatinine 2.0 H Estim Creat Clear Calc 23.5 L eGFR 32 L BUN/Creatinine Ratio 26 H Glucose 94 Calculated Osmolality 295 Calcium 8.8 Corrected Calcium 10.0 Phosphorus 3.9 Magnesium 1.8 Total Bilirubin 0.5 AST 12 ALT 14 Alkaline Phosphatase 59 Total Protein 6.9 Albumin 2.5 L Globulin 4.4 H Albumin/Globulin Ratio 0.6 L TSH 10.93 H D Free T4 1.30 Random Vancomycin 33.7 Misc Test Result Platelets confirmed 03/09/25 03/10/25 13:38 04:27 WBC 0.7 L* RBC 2.61 L Hgb 7.4 L Hct 22.0 L MCV 84 MCH 28.4 MCHC 33.6 RDW Std Deviation 50.8 H Plt Count 29 L* Neut % (Auto) 22 L Lymph % (Auto) 65 H Hamilton % (Auto) 4 Eos % (Auto) 3 Baso % (Auto) 2 Neut # (Auto) 0.2 L Lymph # (Auto) 0.4 L Hamilton # (Auto) 0.0 Eos # (Auto) 0.0 Baso # (Auto) 0.0 Immature Gran # (Auto) 0.03 H Absolute Nucleated RBC 0.00 Immature Gran % 4 H Nucleated RBC % 0 Sodium 144 Potassium 4.7 D 4.7 Chloride 114 H Carbon Dioxide 21.9 Anion Gap 8 BUN 56 H Creatinine 1.9 H Estim Creat Clear Calc 24.7 L eGFR 34 L BUN/Creatinine Ratio 29 H Glucose 119 H Calculated Osmolality 303 H Calcium 8.8 Corrected Calcium 10.0 Phosphorus 4.2 Magnesium 1.8 Total Bilirubin 0.6 AST < 10 ALT 10 Alkaline Phosphatase 66 Total Protein 7.1 Albumin 2.5 L Globulin 4.6 H Albumin/Globulin Ratio 0.5 L TSH Free T4 Random Vancomycin Misc Test Result Quality Measures Quality Measures VTE prophylaxis (SCDs) Advance care planning discussed with:: patient, spouse and child Assessment & Plan Assessment Current Active Medications: Generic Name Dose Route Start Last Admin Trade Name Freq PRN Reason Stop Dose Admin Acetaminophen 650 mg 03/06/25 21:49 Acetaminophen 325 Mg Tablet PO 04/05/25 21:48 Q6H PRN Fever > 100.3 or pain Protocol Hydrocodone Bitart/Acetaminophen 1 tab 03/08/25 14:15 03/09/25 21:58 Hydrocodone/Apap 5/325 Tablet PO 03/13/25 14:14 1 tab Q4HR PRN Administration PAIN 4-10 Buspirone HCl 5 mg 03/09/25 17:00 03/10/25 05:20 Buspirone Hcl 5 Mg Tablet PO 04/08/25 16:59 5 mg TID PRASANTH Administration Carvedilol 3.125 mg 03/07/25 09:00 03/09/25 08:41 Carvedilol 3.125 Mg Tablet PO 04/06/25 08:59 Not Given BID PRASANTH Piperacillin/Tazobactam/Dextrose 3.375 gm in 50 mls @ 12.5 mls/hr 03/09/25 22:00 03/10/25 05:21 Zosyn IV 03/16/25 21:59 12.5 mls/hr Q8HR PRASANTH Administration Protocol Doxycycline Hyclate 100 mg/ 100 mls @ 100 mls/hr 03/09/25 21:00 03/09/25 21:57 Sodium Chloride IV 03/16/25 20:59 100 mls/hr BID PRASANTH Administration Levothyroxine Sodium 50 mcg 03/10/25 06:00 03/10/25 05:20 Levothyroxine Sodium 25 Mcg Tablet PO 04/09/25 05:59 50 mcg ACBR PRASANTH Administration Midodrine 10 mg 03/07/25 06:00 03/10/25 05:21 Midodrine 5 Mg Tablet PO 04/06/25 05:59 10 mg TID PRASANTH Administration Ondansetron HCl 4 mg 03/06/25 21:54 Ondansetron Inj 2 Mg/Ml Inj 2 Ml IVP 04/05/25 21:53 Q6H PRN NAUSEA OR VOMITING Protocol Pantoprazole Sodium 20 mg 03/10/25 09:00 Pantoprazole 20 Mg Tablet PO 04/09/25 08:59 QDAY PRASANTH Protocol Sennosides 1 tab 03/06/25 21:54 Senna Tablet PO 04/05/25 21:53 QDAY PRN constipation Protocol Tamsulosin HCl 0.4 mg 03/07/25 09:00 03/09/25 08:46 Tamsulosin Hcl 0.4 Mg Capsule PO 04/06/25 08:59 0.4 mg DAILY PRASATNH Administration Plan 89-year-old male with past medical history of HFrEF (LVEF 10 to 15%), CAD, s/p CABG x 4, hypertension, CKD stage IV, 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 Started on clotrimazole topical. Patient reports that he continued to apply the clotrimazole after discharge. Patient reports that he has noticed progressive swelling, redness, pain in this area. Physical exam showed nonfluctuant erythematous and warm area along the posterior medial aspect of the thigh. Right lower extremity CT without contrast showed low-density mass in the posteromedial thigh in adductor christiane muscle measuring 4.7 x 3.8 x 10.5 - Patient given Rocephin x 1 and 1 L NS in ED then started on vancomycin and pip-tazo -Patient underwent I&D by general surgeon, Dr. Arango without complication. 20 cc pus was removed. -Vancomycin was discontinued. ? Wound cultures positive for MRSA ?Blood cultures negative x 48 hour ?ANC count 0.1 ?DC cefepime, Levaquin and Flagyl Plan ?Filgrastim 300 mcg given per oncology recs ?Changed to Zosyn 2.25 g and doxycycline 100 IV twice daily ?Urine culture grew Pseudomonas sensitive - Follow-up with wound cultures - Postop pain management #Loose bowel movements x 4 Patient has reported 4 loose bowel movements yesterday, consider loose stools secondary to filgastram side effects versus antibiotic associated diarrhea given patient continues on Zosyn for right medial thigh abscess -Consider C. difficile PCR if loose bowel movements continue -CTM BMs # Hyperkalemia, resolved Potassium: 5.5 Plan ? Kayexalate given x 1 along with breathing treatment ? Kayexalate given x 1 ? Potassium dropped to 4.7 #Hyoptension -In setting of HFrEF ef 10-15% and MDS - Patient blood pressure is around 97/54 Plan: -Continue midodrine 10 mg 3 times daily -IV fluids were given initially during admission -IV albumin 25 g x 1 #UCx Psuedomonal - Continuing antiobiotics given immunocompromised state # Pancytopenia # Myelodysplastic syndrome Initial labs: WBC 0.8, hemoglobin 9.1, hematocrit 26.7, platelet 35. MCV within normal limits Patient was on Azocitidine for myelodysplastic syndrome and requires frequent transfusions and Filgastrim Family informed that chemotherapy was held last week. Family has been thinking of hospice for the patient. 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 -Recommended to consider giving filgrastim and transfuse blood and give broad- spectrum antibiotics as necessary per oncology recs - Continue to monitor with CBC daily - Hold any anticoagulation due to low platelet count. DVT prophylaxis with SCDs only - Transfuse if hemoglobin < 7 - neutropenic precautions # ESTELLA on CKD stage IV -Possible cardiorenal syndrome Initial labs: BUN 65, creatinine 2.1 Patient's baseline creatinine usually 1.5-1.8 Given 1 L normal saline in ED Patient has a history of HFrEF, important not to overload patient with IVF Plan: - Continue to monitor with CMP daily - Avoid nephrotoxic agents - IVF: LR at 60 mL/h x 1 L - Albumin 25 g given x 1 #Speech Stuttering #Essential tremors #? 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 ? Ammonia level less than 10, B12 1762, folate within normal limits. TSH 10.93. ?Pending thiamine and free T4 1.30 Plan: -Neurology recommended with buspirone 5 mg 3 times daily for anxiety -Speech therapy recommended Chopped food to optimize independence with meals. -Consulted neurology for further recommendations ?Neurology is following the case. Neurology considerations are likely related to stress-induced tremor and stuter/psychogenic, medication induced parkinsonism, cerebellar CVA, vitamin deficiency, electrolyte abnormality ?Adjusted levothyroxine from 25 mcg to 50 mcg IV daily ? Follow-up with thyroid functions in 4 to 6 weeks #Subclinical hypothyroidism - Patient is already on levothyroxine 25 mcg - TSH 10.93, free T4 1.30 Plan: -Increase of dose of levothyroxine to 50 mcg # HFrEF, EF 10 to 15% # Hx Hypertension TTE 02/16/25: LVEF 10 to 15% Home meds (per 02/24/25 discharge summary): Carvedilol 3.215 mg PO BID, Entresto 0.5 mg PO BID, Midodrine 10 mg PO TID BP in ED: sBP 93-107 / dBP 52-57 Initial labs: BNP elevated 2003 Initial chest x-ray showed vascular congestion. Right upper extremity Doppler negative for DVT Plan: - Resume home Coreg - Continue midodrine. Continue to monitor on telemetry, can hold Coreg if hypotensive (BP < 90/70) - Hold Entresto (2/2 ESTELLA) - Fluid restrictions - 1.5 L / day - Daily weights - Strict I&Os - Careful hydration #Elevated Vitamin B12 - Vitamin B12 1762 Plan: -Outpatient follow-up # Prolonged QTc Initial EKG showed QTc 531 Plan: - Continue to monitor on telemetry - Avoid QTc prolonging agents - replete electrolytes as necessary # Left buttock erythema Plan: - Frequent turns, continue to monitor - Wound care # Benign prostatic hypertrophy Plan - Continue home Tamsulosin 0.4 mg PO daily Dispo: Plan for home with home health patient family requesting help with hospital bed DVT prophylaxis: SCDs GI prophylaxis: Protonix 20 Diet: Cardiac diet Lines: Peripheral IV, condom catheter Code status: Full code Case discussed with my senior resident Dr. Gilliam Case discussed with my attending Dr. Mariangel Hoang MD PGY-1 Attending Provider Attestation/Addendum I attest that I was physically present for the evaluation, physical examination, lab and imaging review of the patient with the residents. I discussed the case with the residents and agree with the findings and plans of care as documented above. At bedside today, patient states he is feeling tired. Continues to have pain on his right thigh. Patient had 4 loose stools overnight, we will obtain C. difficile. Hemoglobin this morning noted to be 7.4, with history of CAD, we will transfuse him with 1 unit of PRBC with goal hemoglobin of 8. We will obtain posttransfusion H&H. Abscess culture grew MRSA, sensitive to tetracycline. We will continue with Zosyn and doxycycline to cover both MRSA abscess and Pseudomonas in urine. Vital signs have been stable. Patient continues to have leukopenia, neutropenia at 200. Kidney function has been stable. Anticipate discharge in 24 to 48 hours if vitals and hemoglobin remained stable. Frank August MD
[2025-03-10] MEDS: PANTOPRAZOLE 20 MG TABLET PO (08:54)
[2025-03-10] MEDS: Magnesium Sulfate 4 GM Ivpb 4 GM/50 ML BAG IV (08:54)
[2025-03-10] MEDS: DOXYCYCLINE INJ 100 MG in SODIUM CHLORIDE 0.9% (POP) 100 ML IV ×2 (08:54→21:18)
[2025-03-10] MEDS: TAMSULOSIN HCL 0.4 MG CAPSULE PO (08:54)
[2025-03-10 10:14] LABS: Slide Review Platelets confirmed
[2025-03-10 13:25] LABS: Basophils # (Auto) 0.0 Thou/mm3 (0.0-0.2); Basophils % (Auto) 2 % (0-2.5); Eosinophils # (Auto) 0.0 Thou/mm3 (0.0-0.5); Eosinophils % (Auto) 5 % (0-10); Hematocrit 22.4 % (41.0-53.0); Immature Granulocytes Auto 0.07 Thou/mm3 (0.00-0.00); Lymphocytes # (Auto) 0.3 Thou/mm3 (1.0-4.8); Lymphocytes % (Auto) 51 % (10-50); Mean Corpuscular HGB Conc 33.5 g/dl (31.0-37.0); Mean Corpuscular Hemoglobin 28.4 pg (25.0-35.0); Mean Corpuscular Volume 85 fL (80-100); Monocytes # (Auto) 0.0 Thou/mm3 (0.0-0.8); Monocytes % (Auto) 6 % (0-12); Neutrophils # (Auto) 0.2 Thou/mm3 (1.8-7.7); Neutrophils % (Auto) 26 % (37-80); Nucleated Red Blood Cell # 0.00 Thou/mm3 (0.00-0.00); Nucleated Red Blood Cell % 0 /100 WBC (0); RDW Standard Deviation 50.4 fL (35.1-43.9); Red Blood Count 2.64 Miln/mm3 (4.50-5.90)
[2025-03-10 13:27] LABS: Hemoglobin 7.5 g/dL (13.5-16.0)
[2025-03-10 13:28] LABS: Platelet Count 27 Thou/mm3 (140-440); White Blood Count 0.7 Thou/mm3 (3.8-10.6)
[2025-03-10 13:48] LABS: Slide Review Platelets confirmed
--- NOTE | 2025-03-10 14:17 | PC.SS ---
Rounding Note: Patient transfused due to low hemoglobin. Possible d/c tomorrow.
[2025-03-10] MEDS: ALBUMIN HUMAN 25% IVPB 25 GM/100 ML BTL IV (18:26)
[2025-03-10 23:12] LABS: Hematocrit 22.8 % (41.0-53.0)
[2025-03-10 23:16] LABS: Hemoglobin 7.8 g/dL (13.5-16.0)
[2025-03-11] VITALS (17 sets, daily range): BP systolic 95–116; BP diastolic 58–72; PULSE 90–115; RESP 13–34; TEMP 36.1–36.8; O2SAT 100; BMI 22.9
[2025-03-11] MEDS: HYDROcodone/APAP 5/325 TABLET 1 TAB PO (04:39)
[2025-03-11] MEDS: MIDODRINE 5 MG TABLET 10 MG PO ×3 (05:19→22:01)
[2025-03-11] MEDS: PIPER/TAZO 3.375 GM PREMIX 3.375 GM/50 ML BAG IV ×2 (05:19→14:25)
[2025-03-11] MEDS: LEVOTHYROXINE SODIUM 25 MCG TABLET 50 MCG PO (05:20)
[2025-03-11 06:45] LABS: Basophils # (Auto) 0.0 Thou/mm3 (0.0-0.2); Basophils % (Auto) 2 % (0-2.5); Eosinophils # (Auto) 0.0 Thou/mm3 (0.0-0.5); Eosinophils % (Auto) 5 % (0-10); Hematocrit 25.6 % (41.0-53.0); Immature Granulocytes Auto 0.00 Thou/mm3 (0.00-0.00); Lymphocytes # (Auto) 0.3 Thou/mm3 (1.0-4.8); Lymphocytes % (Auto) 52 % (10-50); Mean Corpuscular HGB Conc 34.4 g/dl (31.0-37.0); Mean Corpuscular Hemoglobin 28.9 pg (25.0-35.0); Mean Corpuscular Volume 84 fL (80-100); Monocytes # (Auto) 0.0 Thou/mm3 (0.0-0.8); Monocytes % (Auto) 5 % (0-12); Neutrophils # (Auto) 0.2 Thou/mm3 (1.8-7.7); Neutrophils % (Auto) 36 % (37-80); Nucleated Red Blood Cell # 0.00 Thou/mm3 (0.00-0.00); Nucleated Red Blood Cell % 0 /100 WBC (0); RDW Standard Deviation 52.6 fL (35.1-43.9); Red Blood Count 3.05 Miln/mm3 (4.50-5.90)
[2025-03-11 06:51] LABS: Hemoglobin 8.8 g/dL (13.5-16.0); White Blood Count 0.6 Thou/mm3 (3.8-10.6)
[2025-03-11 06:52] LABS: Platelet Count 25 Thou/mm3 (140-440)
[2025-03-11 07:01] LABS: Alanine Aminotransferase < 7 U/L (10-49); Albumin, Serum 2.7 gm/dL (3.4-4.8); Albumin/Globulin Ratio 0.6 (1.2-2.2); Alkaline Phosphatase 61 U/L (46-116); Anion Gap 10 (7-16); Aspartate Amino Transferase < 10 U/L (0-34); BUN/Creatinine Ratio 23 Ratio (12-20); Bilirubin,Total 0.7 mg/dL (0.3-1.2); Blood Urea Nitrogen 41 mg/dL (9-23); Calcium 8.9 mg/dL (8.3-10.6); Calcium (Corrected) 9.9 mg/dL (8.5-10.1); Carbon Dioxide 20.3 mMol/L (20.0-31.0); Chloride 112 mMol/L (98-107); Creatinine (Component) 1.8 mg/dL (0.6-1.3); Estimated Creatinine Clearance 26.1 mL/min (>60); Globulin 4.7 gm/dL (2.3-3.5); Glucose 138 mg/dL (74-106); Magnesium 1.9 mg/dL (1.6-2.6); Osmolality,Calculated 295 (275-295); Phosphorous 3.5 mg/dL (2.4-5.1); Potassium 4.4 mMol/L (3.4-5.1); Sodium 142 mMol/L (136-145); Total Protein 7.4 gm/dL (5.7-8.2); eGFR 36 See Note
--- NOTE | 2025-03-11 07:38 | PD.RESDS ---
Planned Discharge Date 03/11/25 DS: Providers Provider Date of admission: 03/06/25 21:49 Primary care physician: Physician No Primary/Family Admitting Provider: Celio Mace DO Attending Provider on Admission: Frank August MD Consults: 03/06/25 20:33 Consult to General Surgery Stat Comment: Intramuscular abscess right thigh Consulting Provider: Palma Austin 03/07/25 15:29 Referral Speech Therapy Routine Comment: stutter, progressive 03/08/25 09:51 Consult to Neurology / Tele-Neurology Routine Comment: speech incoherence Consulting Provider: Piotr Haskins 03/09/25 05:42 Referral Registered Dietitian Routine Comment: Referral Wound Care Routine Comment: 03/09/25 15:18 Referral OP Wound Healing Dept Routine Comment: Instructions: Right inner thigh abscess s/p I&D 03/09/25 15:46 Referral Physical Therapy Routine Comment: Physician Instructions: Attending Provider on DC: Dr. August Discharging Provider: RESIDENT Cinda Hospital Course Status at Discharge Functional status at discharge: uses cane/walker Time Spent with Patient Time attestation: Total time spent providing and/or coordinating discharge services: Time spent: Greater than 30 minutes Home Health Home Health Referral Orders: 03/10/25 14:02 Home Health Referral Routine Reason For Exam: Generalaized weakness, leg abscess Home-Bound The patient must either because of illness or injury, need the aid of supportive devices such as crutches, canes, wheelchairs, and walkers; the use of special transportation; or the assistance of another person in order to leave their place of residence; OR have a condition such that leaving his or her home is medically contraindicated. In addition, the patient also meets the following criteria: patient is normally unable to leave the home and leaving home requires considerable taxing effort. Addendum to Home Health Certification Practitioner's Certification: I certify that the patient has been under my care in the hospital and the care of attending physician (see below). We had a [id number] encounter on (see date below). My clinical findings indicate that the patient is home bound per the above criteria and the Home Health Services noted in these orders are medically necessary. The primary reason for the [id number] encounter is related to the fact that the patient requires home health services. Date Certifying [id number] Physician Encounter: 03/06/25 Physician's Name who will Assume Oversight for Services: Ray Gillette (PCP) Physician's Phone No.who will Assume Oversight for Service: HEAD BANQUET WAITRESS - Community Resources: No PT to Evaluate: Yes PT to evaluate and provide a treatmnet plan to increase patient's mobility and strength. Wound Care: No Home Health RN - Wound Care Order: Right thigh abscess IV Therapy: No RN Safety Evaluation: Yes RN to evaluate and create a plan of care that will produce positive outcomes. Palliative Treatment: No Palliative treatment and evaluate the need for hospice. Home Health Aide - Personal Care: No Home Health Aide to assist with any ADL's. Exam Vital Signs Temp Pulse Resp BP Pulse Ox O2 Del Method O2 Flow Rate 97.8 F 97 26 H 100/69 100 Nasal Cannula 3 03/11/25 04:00 03/11/25 05:19 03/11/25 04:00 03/11/25 05:19 03/11/25 04:00 03/11/25 04:00 03/11/25 04:00 Discharge Plan Plan Patient Disposition: Home w/HOME HEALTH Patient condition on transfer: Stable Care Plan Goals: You have been started on the following medications: -Buspirone 5mg three times daily -Bactrim Your levothyroxine has been increased to 50 mcg daily The following meds are being HELD: -aspirin, finestaride, entresto, hydroxyzine Please follow up with your primary doctor within 7-10 days. Please see your operations examiner about restarting your home medications. Please see Dr. Haskins outpatient for follow up. Please follow up with wound care outpatient. F/U with thyroid functions after 6-8 weeks to adjust levothyroxine dose Speech therapy recommends a soft, chopped diet. Please return to ED if you develop new or worsening symptoms. Prescriptions/Referrals Prescriptions/Med Rec: New levothyroxine 25 mcg Tablet 50 mcg PO ACBR 30 Days Qty: 60 0RF buspirone 5 mg Tablet 5 mg PO TID 30 Days Qty: 90 0RF Continued pantoprazole 40 mg tablet,delayed release (DR/EC) 40 mg PO DAILY Patient Comments: TAKE 1 TABLET BY MOUTH EVERY DAY 30 MINUTES BEFORE BREAKFAST tamsulosin 0.4 mg capsule 0.4 mg PO DAILY acetaminophen [Tylenol] 325 mg tablet 650 mg PO BID PRN (Reason: pain) Qty: 14 0RF spironolactone 25 mg tablet 25 mg PO QDAY Patient Comments: TAKE 1 TABLET BY MOUTH EVERY DAY FOR 90 DAYS carvedilol [Coreg] 3.125 mg tablet 3.125 mg PO BID Qty: 60 0RF Rx Instructions: must administer with a meal/food midodrine 10 mg tablet 10 mg PO TID 30 Days Qty: 90 0RF Rx Instructions: Hold if BP >140/80 Discontinued hydroxyzine HCl 50 mg tablet 50 mg PO QID PRN (Reason: Anxiety) levothyroxine 25 mcg tablet 25 mcg PO DAILY Patient Comments: TAKE 1 TABLET BY MOUTH EVERY DAY finasteride 5 mg tablet 5 mg PO DAILY aspirin 81 mg Tablet 81 mg PO DAILY fluticasone propionate 50 mcg/actuation [place],Suspension 1 spray INTRANASAL BID Entresto 24-26 mg tablet 0.5 tab PO BID Qty: 60 2RF clotrimazole 1 % cream 1 applic topical BID Qty: 15 0RF Referrals: Doc - Wound Care,Generic [Physician] - No Primary/Family,Physician [Primary Care Provider] - Piotr Haskins MD [Physician] - Patient/Caregiver Discharge Instructions Discharge Activity: activity as tolerated Education Materials: When You Need a Blood Transfusion ..., Neutropenia, Dysphagia Diet- Managing Drinks, Dysphagia Diet- Managing Foods, ED Abscess, Incision And Drainage Print Language: Hungarian Stand Alone Forms: [employer] Award Info., Patient Portal Info Letter
--- NOTE | 2025-03-11 08:15 | PC.SS ---
Hospital Bed Patient?s diagnosis requires positioning of the head or upper body to be elevated more than 30 degrees. Also the diagnosis requires positioning in order to alleviate pain and if the patient requires frequent changes in the body positioning and/or has an immediate need for change in the body position. Pillows and wedges have been considered and ruled out.
[2025-03-11 08:51] LABS: Slide Review Platelets confirmed
--- NOTE | 2025-03-11 09:27 | ESPR_ITS ---
Documentation for date of: 03/11/25 Subjective Subjective Interval history: Patient seen at bedside accompanied by family. Patient denies any symptoms. Exam Vital Signs Temp Pulse Resp BP Pulse Ox O2 Del Method O2 Flow Rate 97.0 F 115 H 17 116/72 100 Nasal Cannula 2 03/11/25 08:00 03/11/25 08:00 03/11/25 08:00 03/11/25 08:00 03/11/25 08:00 03/11/25 08:00 03/11/25 08:00 Narrative Exam General: No acute distress, well nourished Eye: PERRL, EOMI, normal conjunctiva, no scleral icterus HENT: Normocephalic, atraumatic, hearing intact to conversation at normal volume, moist oral mucosa Neck: Supple, non-tender, no JVD, no lymphadenopathy Lungs: Non-labored respirations, symmetric chest rise Heart: Peripheral pulses intact bilaterally Abdomen: Soft, non-tender, non-distended Musculoskeletal: Normal range of motion and strength Skin: Skin is warm, dry, no rashes or lesions. Psychiatric: Cooperative, appropriate mood and affect Neurologic: Mental status: Orientation: AOx2 Communication: Patient is cooperative and can follow simple instructions Language: Minimal stuttering, normal rate and volume, comprehension intact Cranial nerves: CN II: Visual santoyo intact CN III: Pupils equal, round, and reactive to light CN III, IV, : No gaze deviation, no nystagmus Horizontal pursuit: intact Vertical pursuit: intact Ptosis: none CN V: Facial sensation to light touch intact bilaterally at the forehead, cheeks, and jaw line CN VII: Face symmetric, no facial droop appreciated CN VIII: Able to hear and respond to conversation at normal volume, intact to finger rub CN IX, X: Palate elevation symmetric, uvula midline CN XI: Head turn and shoulder shrug strong, symmetric bilaterally CN XII: Normal tongue protrusion without deviation, no fasciculations Motor: Normal bulk and tone No atrophy Minimal to no Action and intention tremor appreciated Muscle strength: Elbow flexion: R 5/5 L 5/5 Elbow extension: R 5/5 L 5/5 Hip flexion: R 5/5 L 5/5 Hip extension: R 5/5 L 5/5 Able to sit on edge of bed with support Sensory: RUE: Light touch intact LUE: Light touch intact RLE: Light touch intact LLE: Light touch intact Objective Labs 03/11/25 06:10 03/11/25 06:10 Labs: Laboratory Results - last 24 hr 03/10/25 03/10/25 03/10/25 04:27 11:06 13:09 WBC 0.7 L* RBC 2.64 L Hgb 7.5 L Hct 22.4 L MCV 85 MCH 28.4 MCHC 33.5 RDW Std Deviation 50.4 H Plt Count 27 L* Neut % (Auto) 26 L Lymph % (Auto) 51 H Pickett % (Auto) 6 Eos % (Auto) 5 Baso % (Auto) 2 Neut # (Auto) 0.2 L Lymph # (Auto) 0.3 L Pickett # (Auto) 0.0 Eos # (Auto) 0.0 Baso # (Auto) 0.0 Immature Gran # (Auto) 0.07 H Absolute Nucleated RBC 0.00 Immature Gran % 11 H Nucleated RBC % 0 Sodium Potassium Chloride Carbon Dioxide Anion Gap BUN Creatinine Estim Creat Clear Calc eGFR BUN/Creatinine Ratio Glucose Calculated Osmolality Calcium Corrected Calcium Phosphorus Magnesium Total Bilirubin AST ALT Alkaline Phosphatase Total Protein Albumin Globulin Albumin/Globulin Ratio Misc Test Result Platelets confirmed Platelets confirmed Blood Type O Positive Antibody Screen NEGATIVE Crossmatch See Detail Blood Bank Wristband ID Yes 03/10/25 03/11/25 22:37 06:10 WBC 0.6 L* RBC 3.05 L Hgb 7.8 L 8.8 L Hct 22.8 L 25.6 L MCV 84 MCH 28.9 MCHC 34.4 RDW Std Deviation 52.6 H Plt Count 25 L* Neut % (Auto) 36 L Lymph % (Auto) 52 H Pickett % (Auto) 5 Eos % (Auto) 5 Baso % (Auto) 2 Neut # (Auto) 0.2 L Lymph # (Auto) 0.3 L Pickett # (Auto) 0.0 Eos # (Auto) 0.0 Baso # (Auto) 0.0 Immature Gran # (Auto) 0.00 Absolute Nucleated RBC 0.00 Immature Gran % 0 Nucleated RBC % 0 Sodium 142 Potassium 4.4 Chloride 112 H Carbon Dioxide 20.3 Anion Gap 10 BUN 41 H Creatinine 1.8 H Estim Creat Clear Calc 26.1 L eGFR 36 L BUN/Creatinine Ratio 23 H Glucose 138 H Calculated Osmolality 295 Calcium 8.9 Corrected Calcium 9.9 Phosphorus 3.5 Magnesium 1.9 Total Bilirubin 0.7 AST < 10 ALT < 7 L Alkaline Phosphatase 61 Total Protein 7.4 Albumin 2.7 L Globulin 4.7 H Albumin/Globulin Ratio 0.6 L Misc Test Result Platelets confirmed Blood Type Antibody Screen Crossmatch Blood Bank Wristband ID Quality Measures Quality Measures VTE prophylaxis (SCDs) Advance care planning discussed with:: patient Assessment & Plan Assessment Current Active Medications: Generic Name Dose Route Start Last Admin Trade Name Freq PRN Reason Stop Dose Admin Acetaminophen 650 mg 03/06/25 21:49 Acetaminophen 325 Mg Tablet PO 04/05/25 21:48 Q6H PRN Fever > 100.3 or pain Protocol Hydrocodone Bitart/Acetaminophen 1 tab 03/08/25 14:15 03/11/25 04:39 Hydrocodone/Apap 5/325 Tablet PO 03/13/25 14:14 1 tab Q4HR PRN Administration PAIN 4-10 Buspirone HCl 5 mg 03/09/25 17:00 03/11/25 05:20 Buspirone Hcl 5 Mg Tablet PO 04/08/25 16:59 5 mg TID PRASANTH Administration Carvedilol 3.125 mg 03/07/25 09:00 03/10/25 21:16 Carvedilol 3.125 Mg Tablet PO 04/06/25 08:59 3.125 mg BID PRASANTH Administration Piperacillin/Tazobactam/Dextrose 3.375 gm in 50 mls @ 12.5 mls/hr 03/09/25 22:00 03/11/25 05:19 Zosyn IV 03/16/25 21:59 12.5 mls/hr Q8HR PRASANTH Administration Protocol Doxycycline Hyclate 100 mg/ 100 mls @ 100 mls/hr 03/09/25 21:00 03/10/25 21:18 Sodium Chloride IV 03/16/25 20:59 100 mls/hr BID PRASANTH Administration Magnesium Sulfate 4 gm in 50 mls @ 12.5 mls/hr 03/11/25 07:51 Magnesium Sulfate Ivpb IV 03/11/25 11:50 X1 ONE Levothyroxine Sodium 50 mcg 03/10/25 06:00 03/11/25 05:20 Levothyroxine Sodium 25 Mcg Tablet PO 04/09/25 05:59 50 mcg ACBR PRASANTH Administration Midodrine 10 mg 03/07/25 06:00 03/11/25 05:19 Midodrine 5 Mg Tablet PO 04/06/25 05:59 10 mg TID PRASANTH Administration Ondansetron HCl 4 mg 03/06/25 21:54 Ondansetron Inj 2 Mg/Ml Inj 2 Ml IVP 04/05/25 21:53 Q6H PRN NAUSEA OR VOMITING Protocol Pantoprazole Sodium 20 mg 03/10/25 09:00 03/10/25 08:54 Pantoprazole 20 Mg Tablet PO 04/09/25 08:59 20 mg QDAY PRASANTH Administration Protocol Sennosides 1 tab 03/06/25 21:54 Senna Tablet PO 04/05/25 21:53 QDAY PRN constipation Protocol Tamsulosin HCl 0.4 mg 03/07/25 09:00 03/10/25 08:54 Tamsulosin Hcl 0.4 Mg Capsule PO 04/06/25 08:59 0.4 mg DAILY PRASANTH Administration Plan # Stuttering, resolved # Action tremor, resolved Symptoms began during previous hospitalization in January. Action tremor worse in right upper extremity than left, exacerbated when patient discusses topics that are anxiety provoking and are absent at rest or with focus. Neuroconsult initially for parkinsonian symptoms. Patient does not exhibit cogwheel rigidity or kinesia. No asterixis appreciated. Symptom resolution when patient takes a deep breath, calms himself, and focuses on what he wants to say. LFT WNL, Ammonia <10, B12 high 1762, folate WNL, TSH high 10.93, free T4 WNL DDX: Stress-induced tremor and stutter/psychogenic, medication induced parkinsonianism, cerebellar CVA, vitamin deficiency, electrolyte abnormality, hepatic/metabolic encephalopathy. No concern for Parkinson dz at this time. Intermittent tremors and staccato speech are most likely anxiety driven. No concern for Parkinson disease or essential tremor at this time. Plan: - Pending thiamine - Continnue Buspar 5 mg TID for anxiety, tolerating appropriately - F/U outpatient with Dr. Haskins - Patient cleared for discharge from neurological perspective # Right lower extremity posterior medial abscess Patient initially developed right thigh fungal infection on 02/22 during previous hospitalization. Started on clotrimazole topical. Patient reports that he continued to apply the clotrimazole after discharge. Patient reports that he has noticed progressive swelling, redness, pain in this area. Physical exam showed nonfluctuant erythematous and warm area along the posterior medial aspect of the thigh. Right lower extremity CT without contrast showed low-density mass in the posteromedial thigh in adductor christiane muscle measuring 4.7 x 3.8 x 10.5 I&D [address] CT LE: Abscess remains in the medial posterior thigh, 5.0 x 2.9 x 10.2 cm Plan: - Management per primary - plan for second I&D # Pancytopenia # Myelodysplastic syndrome Initial labs: WBC 0.8, hemoglobin 9.1, hematocrit 26.7, platelet 35. 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 Right upper extremity Doppler negative for DVT Plan: - Management per primary # Prolonged QTc Initial EKG showed QTc 531 Plan: - Management per primary # Hypothyroidism TSH high 10.93, free T4 1.3 WNL Plan: - Management per primary - increased levothyroxine dose from 25 mcg daily to 50 mcg daily (inital dose of patient with CAD), monitor for angina Plan discussed with Dr. Divine Lozano, PGY1 Attending Provider Attestation/Addendum I personally have seen and examined the patient at the bedside and they agreed with the resident's findings, assessment and plan of care. Patient's tremors and staccato speech almost resolved. Continue with BuSpar as before.
[2025-03-11] MEDS: Magnesium Sulfate 4 GM Ivpb 4 GM/50 ML BAG IV (10:20)
[2025-03-11] MEDS: TAMSULOSIN HCL 0.4 MG CAPSULE PO (10:21)
[2025-03-11] MEDS: DOXYCYCLINE INJ 100 MG in SODIUM CHLORIDE 0.9% (POP) 100 ML IV ×2 (10:21→23:08)
[2025-03-11] MEDS: PANTOPRAZOLE 20 MG TABLET PO (10:21)
--- NOTE | 2025-03-11 10:59 | PC.SS ---
Update: Patient pending surgery clearance. Patient requiring platelets.
--- NOTE | 2025-03-11 11:20 | XR_ITS ---
Examination: CT right lower extremity, without contrast. 2-D sagittal reconstructions. 2-D coronal reconstructions. 3-D reconstructions. Date and time of exam:March 11, 2025 1245 hours INDICATIONS: Inner right thigh redness swelling and pain this week with abscess in the medial posterior thigh 4.7 x 3.8 x 10.[address] examination March 06, 2025, status post incision and drainage CTDI: vol (mGy):10.5 DLP: (mGycm):5 Technique: Multiple 1.25 mm axial sections of the right lower extremity without intravenous contrast have been obtained. 2-D sagittal and coronal reconstructions have been obtained. 3-D reconstructions have been obtained. Low dose protocols were performed. One or more of the following dose reduction techniques were used; automated exposure control, adjustment of the mA and/or KV according to patient size, use of iterative reconstruction technique. Findings: Surgical defect medial thigh Abscess remains in the medial posterior thigh, transverse dimension 5.0 cm, AP dimension 2.9 cm, cephalad caudad dimension 10.2 cm IMPRESSION: Abscess remains in the medial posterior thigh, 5.0 x 2.9 x 10.2 cm
--- NOTE | 2025-03-11 11:24 | PC.SS ---
DME referral submitted on [facility] platform. Response pending. Order and supporting documents placed in the patient's chart.
--- NOTE | 2025-03-11 11:46 | XR_ITS ---
Examination: Duplex scan of the lower extremity, unilateral right Date and time of exam: March 11, 2025 1328 hours INDICATIONS: Right leg swelling and pain beginning 2 weeks ago Technique: Duplex scan of the extremity veins using B-mode/grayscale imaging and Doppler spectral analysis and color flow Attention is directed to internal echogenicity, compression and augmentation involving these veins, color flow assessment, spectral analysis Findings: Major deep venous structures in the extremity demonstrate normal course and caliber. There is no evidence of deep vein thrombosis. Normal color flow and spectral analysis Impression: Negative for DVT..
[2025-03-11] MEDS: DiphenhydrAMINE/ZN ACET 2% CR 30 GM TUBE TOP (14:32)
--- NOTE | 2025-03-11 14:41 | PC.SS ---
Rounding Note: Plan is to drain abscess. Possible d/c home tomorrow.
--- NOTE | 2025-03-11 16:53 | ESPR_ITS ---
<Statement entered by Paxton Gilliam MD - 03/11/25 18:18> Patient seen and examined at bedside, no acute overnight events. I discussed and supervised with the internal controls consultant physician who took care of this patient. I personally saw and examined the patient. I agree with most of the assessment and plan. Patient RLE noted to be mildly swollen today. US negative for DVT, CT imaging showed abscess. Plan for IR drainage tomorrow. Continuing antibiotics with zosyn and doxy. Platelets 25, transfusing 2 units in anticipation of procedure. Plan of care discussed with attending Dr. August. Paxton Gilliam MD PGY-2 Documentation for date of: 03/11/25 Subjective Subjective Interval history: No acute events overnight Hemoglobin stable at 8 Patient continues to have erythema of right lower extremity and pain, CT lower extremity reveals abscess remains in the right medial thigh, with plan for IR drain tomorrow. Exam Vital Signs Temp Pulse Resp BP Pulse Ox O2 Del Method O2 Flow Rate 97.3 F 100 18 102/60 100 Nasal Cannula 3 03/11/25 12:00 03/11/25 14:25 03/11/25 12:00 03/11/25 14:25 03/11/25 12:00 03/11/25 12:00 03/11/25 12:00 24-hour vital signs reviewed patient tachypneic at 34 at baseline Afebrile Narrative Exam GENERAL APPEARANCE: Elderly frail-appearing male with stutter speech in no acute distress. Very anxious at baseline. Saturating well on room air. HEENT: NC, AT. Dry mucous membrane. EOMI, clear conjunctiva, oropharynx clear. NECK: No stiffness or restricted ROM. HEART: Regular rate and regular rhythm with HAIR ASSISTANT-D, normal S1/S2, no m/r/g LUNGS: CTAB, moving air well. No crackles or wheezes are heard. ABDOMEN: Soft, nontender, nondistended with good bowel sounds heard. BACK: No CVAT, no obvious deformity. EXTREMITIES: Medial thigh covered in surgical dressing after I&D, erythema of right leg noted, right foot and ankle swollen compared to left. upper extremity tremors noted to be less than prior NEUROLOGICAL: Grossly nonfocal. Alert and oriented, moving all 4 extremities. Patient has action tremor no resting tremor noted. CN not formally tested but appear grossly intact. Stuttering with speech. Skin: Right medial thigh with erythema. Psych: Stuttering speech (improved from yesterday) with appropriate mood and affect Objective Labs 03/12/25 07:45 03/13/25 05:44 Labs: Laboratory Results - last 24 hr 03/10/25 03/10/25 03/11/25 11:06 22:37 06:10 WBC 0.6 L* RBC 3.05 L Hgb 7.8 L 8.8 L Hct 22.8 L 25.6 L MCV 84 MCH 28.9 MCHC 34.4 RDW Std Deviation 52.6 H Plt Count 25 L* Neut % (Auto) 36 L Lymph % (Auto) 52 H Edmunds % (Auto) 5 Eos % (Auto) 5 Baso % (Auto) 2 Neut # (Auto) 0.2 L Lymph # (Auto) 0.3 L Edmunds # (Auto) 0.0 Eos # (Auto) 0.0 Baso # (Auto) 0.0 Immature Gran # (Auto) 0.00 Absolute Nucleated RBC 0.00 Immature Gran % 0 Nucleated RBC % 0 Sodium 142 Potassium 4.4 Chloride 112 H Carbon Dioxide 20.3 Anion Gap 10 BUN 41 H Creatinine 1.8 H Estim Creat Clear Calc 26.1 L eGFR 36 L BUN/Creatinine Ratio 23 H Glucose 138 H Calculated Osmolality 295 Calcium 8.9 Corrected Calcium 9.9 Phosphorus 3.5 Magnesium 1.9 Total Bilirubin 0.7 AST < 10 ALT < 7 L Alkaline Phosphatase 61 Total Protein 7.4 Albumin 2.7 L Globulin 4.7 H Albumin/Globulin Ratio 0.6 L Misc Test Result Platelets confirmed Crossmatch See Detail Platelets 25 from 27 Quality Measures Quality Measures VTE prophylaxis (SCDs) Advance care planning discussed with:: patient and spouse Assessment & Plan Assessment Current Active Medications: Generic Name Dose Route Start Last Admin Trade Name Freq PRN Reason Stop Dose Admin Acetaminophen 650 mg 03/06/25 21:49 Acetaminophen 325 Mg Tablet PO 04/05/25 21:48 Q6H PRN Fever > 100.3 or pain Protocol Hydrocodone Bitart/Acetaminophen 1 tab 03/08/25 14:15 03/11/25 04:39 Hydrocodone/Apap 5/325 Tablet PO 03/13/25 14:14 1 tab Q4HR PRN Administration PAIN 4-10 Buspirone HCl 5 mg 03/09/25 17:00 03/11/25 14:25 Buspirone Hcl 5 Mg Tablet PO 04/08/25 16:59 5 mg TID PRASANTH Administration Carvedilol 3.125 mg 03/07/25 09:00 03/11/25 10:21 Carvedilol 3.125 Mg Tablet PO 04/06/25 08:59 3.125 mg BID PRASANTH Administration Piperacillin/Tazobactam/Dextrose 3.375 gm in 50 mls @ 12.5 mls/hr 03/09/25 22:00 03/11/25 14:25 Zosyn IV 03/16/25 21:59 12.5 mls/hr Q8HR PRASANTH Administration Protocol Doxycycline Hyclate 100 mg/ 100 mls @ 100 mls/hr 03/09/25 21:00 03/11/25 10:21 Sodium Chloride IV 03/16/25 20:59 100 mls/hr BID PRASANTH Administration Levothyroxine Sodium 50 mcg 03/10/25 06:00 03/11/25 05:20 Levothyroxine Sodium 25 Mcg Tablet PO 04/09/25 05:59 50 mcg ACBR PRASANTH Administration Midodrine 10 mg 03/07/25 06:00 03/11/25 14:25 Midodrine 5 Mg Tablet PO 04/06/25 05:59 10 mg TID PRASANTH Administration Ondansetron HCl 4 mg 03/06/25 21:54 Ondansetron Inj 2 Mg/Ml Inj 2 Ml IVP 04/05/25 21:53 Q6H PRN NAUSEA OR VOMITING Protocol Pantoprazole Sodium 20 mg 03/10/25 09:00 03/11/25 10:21 Pantoprazole 20 Mg Tablet PO 04/09/25 08:59 20 mg QDAY PRASANTH Administration Protocol Sennosides 1 tab 03/06/25 21:54 Senna Tablet PO 04/05/25 21:53 QDAY PRN constipation Protocol Tamsulosin HCl 0.4 mg 03/07/25 09:00 03/11/25 10:21 Tamsulosin Hcl 0.4 Mg Capsule PO 04/06/25 08:59 0.4 mg DAILY PRASANTH Administration Plan 89-year-old male with past medical history of HFrEF (LVEF 10 to 15%), CAD, s/p CABG x 4, hypertension, CKD stage IV, myelodysplastic syndrome on chemo and transfusions, hypothyroidism who presents to the ED with right lower extremity posteromedial abscess, status post I&D with surgery wound cultures positive for MRSA, continue on antibiotics, the lower extremity shows abscess remains in the medial posterior thigh 5 x 3 x 10 cm, pending IR drain for right abscess. #Right lower extremity posterior medial abscess status post I&D day 3 Patient initially developed right thigh fungal infection on 629 during previous hospitalization. Started on clotrimazole topical. Patient reports that he continued to apply the clotrimazole after discharge. Patient reports that he has noticed progressive swelling, redness, pain in this area. Physical exam showed nonfluctuant erythematous and warm area along the posterior medial aspect of the thigh. Right lower extremity CT without contrast showed low-density mass in the posteromedial thigh in adductor christiane muscle measuring 4.7 x 3.8 x 10.5 - Patient given Rocephin x 1 and 1 L NS in ED then started on vancomycin and pip-tazo -Patient underwent I&D by general surgeon, Dr. Arango without complication. 20 cc pus was removed. -Vancomycin was discontinued. ? Wound cultures positive for MRSA ?Blood cultures negative x 48 hour ?ANC count 0.1 ?DC cefepime, Levaquin and Flagyl -03/11 CT lower extremity right Abscess remains in the medial posterior thigh, 5.0 x 2.9 x 10.2 cm Plan ?Filgrastim 300 mcg given per oncology recs ?Changed to Zosyn 2.25 g and doxycycline 100 IV twice daily, plan for discharge on Bactrim ?Urine culture grew Pseudomonas sensitive - Follow-up with wound cultures - Postop pain management #Right lower extremity swelling concerning for DVT-R/0 On exam right ankle and foot were swollen compared to left Dx -Right lower extremity DVT ultrasound: No DVT #Loose bowel movements x 4-resolved Patient has reported 4 loose bowel movements yesterday, consider loose stools secondary to filgastram side effects versus antibiotic associated diarrhea given patient continues on Zosyn for right medial thigh abscess No loose stools today -Consider C. difficile PCR if loose bowel movements continue -CTM BMs # Hyperkalemia, resolved Potassium: 5.5 Plan ? Kayexalate given x 1 along with breathing treatment ? Kayexalate given x 1 ? Potassium dropped to 4.7 #Hyoptension -In setting of HFrEF ef 10-15% and MDS - Patient blood pressure is around 97/54 Plan: -Continue midodrine 10 mg 3 times daily -IV fluids were given initially during admission -IV albumin 25 g x 1 #UCx Psuedomonal - Continuing antiobiotics given immunocompromised state # Pancytopenia # Myelodysplastic syndrome Initial labs: WBC 0.8, hemoglobin 9.1, hematocrit 26.7, platelet 35. MCV within normal limits Patient was on Azocitidine for myelodysplastic syndrome and requires frequent transfusions and Filgastrim Family informed that chemotherapy was held last week. Family has been thinking of hospice for the patient. ANC count 100, 03/09 - 1 unit of platelet was given before I&D Given plan for discharge following IR drain placement in the right thigh abscess, plan for 2 units platelets to be transfused today Plan: - Transfuse 2 units platelets 03/11, -Follow-up CBC in a.m. 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 -Recommended to consider giving filgrastim and transfuse blood and give broad- spectrum antibiotics as necessary per oncology recs - Continue to monitor with CBC daily - Hold any anticoagulation due to low platelet count. DVT prophylaxis with SCDs only - Transfuse if hemoglobin < 7 - neutropenic precautions # ESTELLA on CKD stage IV -Possible cardiorenal syndrome Initial labs: BUN 65, creatinine 2.1 Patient's baseline creatinine usually 1.5-1.8 Given 1 L normal saline in ED Patient has a history of HFrEF, important not to overload patient with IVF Plan: - Continue to monitor with CMP daily - Avoid nephrotoxic agents - IVF: LR at 60 mL/h x 1 L - Albumin 25 g given x 1 #Speech Stuttering #Essential tremors #? 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 ? Ammonia level less than 10, B12 1762, folate within normal limits. TSH 10.93. ?Pending thiamine and free T4 1.30 Plan: -Neurology recommended with lizettrone 5 mg 3 times daily for anxiety -Speech therapy recommended Chopped food to optimize independence with meals. -Consulted neurology for further recommendations ?Neurology is following the case. Neurology considerations are likely related to stress-induced tremor and stuter/psychogenic, medication induced parkinsonism, cerebellar CVA, vitamin deficiency, electrolyte abnormality ?Adjusted levothyroxine from 25 mcg to 50 mcg IV daily ? Follow-up with thyroid functions in 4 to 6 weeks #Subclinical hypothyroidism - Patient is already on levothyroxine 25 mcg - TSH 10.93, free T4 1.30 Plan: -Increase of dose of levothyroxine to 50 mcg # HFrEF, EF 10 to 15% # Hx Hypertension TTE 02/16/25: LVEF 10 to 15% Home meds (per 02/24/25 discharge summary): Carvedilol 3.215 mg PO BID, Entresto 0.5 mg PO BID, Midodrine 10 mg PO TID BP in ED: sBP 93-107 / dBP 52-57 Initial labs: BNP elevated 2003 Initial chest x-ray showed vascular congestion. Right upper extremity Doppler negative for DVT Plan: - Resume home Coreg - Continue midodrine. Continue to monitor on telemetry, can hold Coreg if hypotensive (BP < 90/70) - Hold Entresto (2/2 ESTELLA) - Fluid restrictions - 1.5 L / day - Daily weights - Strict I&Os - Careful hydration #Elevated Vitamin B12 - Vitamin B12 1762 Plan: -Outpatient follow-up # Prolonged QTc Initial EKG showed QTc 531 Plan: - Continue to monitor on telemetry - Avoid QTc prolonging agents - replete electrolytes as necessary # Left buttock erythema Plan: - Frequent turns, continue to monitor - Wound care # Benign prostatic hypertrophy Plan - Continue home Tamsulosin 0.4 mg PO daily #Left hand itchiness Patient reported that after IV placement on left hand that he was experiencing itchiness, consider dermatitis to adhesive used for IV ? Topical Benadryl cream as needed to affected areas Dispo: Plan for home with home health patient family requesting help with hospital bed, pending IR drain placement tomorrow and platelet transfusion this evening DVT prophylaxis: SCDs GI prophylaxis: Protonix 20 Diet: Cardiac diet, n.p.o. at midnight Lines: Peripheral IV, condom catheter Code status: Full code Case discussed with my senior resident Dr. Di Andriy Case discussed with my attending Dr. Mariangel Hoang MD PGY-1 Attending Provider Attestation/Addendum I attest that I was physically present for the evaluation, physical examination, lab and imaging review of the patient with the residents. I discussed the case with the residents and agree with the findings and plans of care as documented above. Frank August MD
--- NOTE | 2025-03-11 17:18 | PC.PT ---
Patient is now safe to stand and transfer to a bedside commode with a FWW and 1 staff assist. RN made aware.
[2025-03-12] VITALS (23 sets, daily range): BP systolic 96–127; BP diastolic 64–86; PULSE 86–106; RESP 18–26; TEMP 36.1–36.7; O2SAT 95–100; BMI 22.9; BMI 11.0
[2025-03-12] MEDS: PIPER/TAZO 3.375 GM PREMIX 3.375 GM/50 ML BAG IV ×4 (00:23→22:12)
[2025-03-12] MEDS: MIDODRINE 5 MG TABLET 10 MG PO ×3 (05:41→22:11)
[2025-03-12] MEDS: LEVOTHYROXINE SODIUM 25 MCG TABLET 50 MCG PO (05:41)
--- NOTE | 2025-03-12 07:46 | ESPR_ITS ---
<Statement entered by Devonte Balbuena MD - 03/12/25 18:43> Patient was seen and examined at the bedside. Platelets were low therefore CT- guided abscess drainage was deferred. Will likely perform tomorrow. N.p.o. after midnight. Diet was resumed since procedure was canceled. Will follow-up platelets tomorrow. I discussed and supervised with the commissioner of internal revenue physician who took care of this patient. I personally saw and examined the patient. I agree with most of the assessment and plan. Disclaimer: Despite multiple revisions, due to the dictation software being used, the document bellow may not be free of grammatical errors including phonetic/typographic errors. However, this does not deter from our commitment to providing health care in the patient's best interest in mind. Plan of care discussed with attending Physician Dr. Jorge Balbuena MD PGY-3 Documentation for date of: 03/12/25 Subjective Subjective Interval history: No acute events overnight pt recieved 2 units platelets overnight with levels increased from 25-38 pending additional unit of plt transfuse today, with plan for IR drainage of R thigh abscess tomorrow if plt >50 post tranfusion Exam Vital Signs Temp Pulse Resp BP Pulse Ox O2 Del Method O2 Flow Rate 97.2 F 99 23 H 106/75 100 Nasal Cannula 3 03/12/25 06:35 03/12/25 06:35 03/12/25 06:35 03/12/25 06:35 03/12/25 06:35 03/12/25 03:52 03/12/25 06:35 24 hr vital signs reviewd, at pts baseline, mildly tachypnic, satting well on NC Narrative Exam GENERAL APPEARANCE: Elderly frail-appearing male with stutter speech in no acute distress. Very anxious at baseline. Saturating well on room air. HEENT: NC, AT. Dry mucous membrane. EOMI, clear conjunctiva, oropharynx clear. NECK: No stiffness or restricted ROM. HEART: Regular rate and regular rhythm with VESSEL BUILDER-D, normal S1/S2, no m/r/g LUNGS: CTAB, moving air well. No crackles or wheezes are heard. ABDOMEN: Soft, nontender, nondistended with good bowel sounds heard. BACK: No CVAT, no obvious deformity. EXTREMITIES: Medial thigh covered in surgical dressing after I&D, erythema of right leg noted, right foot and ankle swollen compared to left. upper extremity tremors noted to be less than prior NEUROLOGICAL: Grossly nonfocal. Alert and oriented, moving all 4 extremities. Patient has action tremor no resting tremor noted. CN not formally tested but appear grossly intact. Stuttering with speech. Skin: Right medial thigh with erythema. Psych: Stuttering speech (improved from yesterday) with appropriate mood and affect Objective Labs 03/12/25 07:45 03/13/25 05:44 Labs: Laboratory Results - last 24 hr 03/10/25 03/11/25 11:06 06:10 Misc Test Result Platelets confirmed Blood Type O Positive Antibody Screen NEGATIVE Crossmatch See Detail Blood Bank Wristband ID Yes Blood Bank Comment PLATP Ready Quality Measures Quality Measures VTE prophylaxis (SCDs) Advance care planning discussed with:: patient Assessment & Plan Assessment Current Active Medications: Generic Name Dose Route Start Last Admin Trade Name Freq PRN Reason Stop Dose Admin Acetaminophen 650 mg 03/06/25 21:49 Acetaminophen 325 Mg Tablet PO 04/05/25 21:48 Q6H PRN Fever > 100.3 or pain Protocol Hydrocodone Bitart/Acetaminophen 1 tab 03/08/25 14:15 03/11/25 04:39 Hydrocodone/Apap 5/325 Tablet PO 03/13/25 14:14 1 tab Q4HR PRN Administration PAIN 4-10 Buspirone HCl 5 mg 03/09/25 17:00 03/12/25 05:41 Buspirone Hcl 5 Mg Tablet PO 04/08/25 16:59 5 mg TID PRASANTH Administration Carvedilol 3.125 mg 03/07/25 09:00 03/11/25 22:00 Carvedilol 3.125 Mg Tablet PO 04/06/25 08:59 3.125 mg BID PRASANTH Administration Piperacillin/Tazobactam/Dextrose 3.375 gm in 50 mls @ 12.5 mls/hr 03/09/25 22:00 03/12/25 07:15 Zosyn IV 03/16/25 21:59 12.5 mls/hr Q8HR PRASANTH Administration Protocol Doxycycline Hyclate 100 mg/ 100 mls @ 100 mls/hr 03/09/25 21:00 03/11/25 23:08 Sodium Chloride IV 03/16/25 20:59 100 mls/hr BID PRASANTH Administration Levothyroxine Sodium 50 mcg 03/10/25 06:00 03/12/25 05:41 Levothyroxine Sodium 25 Mcg Tablet PO 04/09/25 05:59 50 mcg ACBR PRASANTH Administration Midodrine 10 mg 03/07/25 06:00 03/12/25 05:41 Midodrine 5 Mg Tablet PO 04/06/25 05:59 10 mg TID PRASANTH Administration Ondansetron HCl 4 mg 03/06/25 21:54 Ondansetron Inj 2 Mg/Ml Inj 2 Ml IVP 04/05/25 21:53 Q6H PRN NAUSEA OR VOMITING Protocol Pantoprazole Sodium 20 mg 03/10/25 09:00 03/11/25 10:21 Pantoprazole 20 Mg Tablet PO 04/09/25 08:59 20 mg QDAY PRASANTH Administration Protocol Sennosides 1 tab 03/06/25 21:54 Senna Tablet PO 04/05/25 21:53 QDAY PRN constipation Protocol Tamsulosin HCl 0.4 mg 03/07/25 09:00 03/11/25 10:21 Tamsulosin Hcl 0.4 Mg Capsule PO 04/06/25 08:59 0.4 mg DAILY PRASANTH Administration Plan 89-year-old male with past medical history of HFrEF (LVEF 10 to 15%), CAD, s/p CABG x 4, hypertension, CKD stage IV, 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 Started on clotrimazole topical. Patient reports that he continued to apply the clotrimazole after discharge. Patient reports that he has noticed progressive swelling, redness, pain in this area. Physical exam showed nonfluctuant erythematous and warm area along the posterior medial aspect of the thigh. Right lower extremity CT without contrast showed low-density mass in the posteromedial thigh in adductor christiane muscle measuring 4.7 x 3.8 x 10.5 - Patient given Rocephin x 1 and 1 L NS in ED then started on vancomycin and pip-tazo -Patient underwent I&D by general surgeon, Dr. Arango without complication. 20 cc pus was removed. -Vancomycin was discontinued. ? Wound cultures positive for MRSA ?Blood cultures negative x 48 hour ?ANC count 0.1 ?DC cefepime, Levaquin and Flagyl -03/11 CT lower extremity right Abscess remains in the medial posterior thigh, 5.0 x 2.9 x 10.2 cm Plan ?Filgrastim 300 mcg given per oncology recs ?Changed to Zosyn 2.25 g and doxycycline 100 IV twice daily, plan for discharge on Bactrim ?Urine culture grew Pseudomonas sensitive - Follow-up with wound cultures - Postop pain management #Right lower extremity swelling concerning for DVT-R/0 On exam right ankle and foot were swollen compared to left Dx -Right lower extremity DVT ultrasound: No DVT #Loose bowel movements x 4-resolved Patient has reported 4 loose bowel movements yesterday, consider loose stools secondary to filgastram side effects versus antibiotic associated diarrhea given patient continues on Zosyn for right medial thigh abscess No loose stools today -Consider C. difficile PCR if loose bowel movements continue -CTM BMs # Hyperkalemia, resolved Potassium: 5.5 Plan ? Kayexalate given x 1 along with breathing treatment ? Kayexalate given x 1 ? Potassium dropped to 4.7 #Hyoptension -In setting of HFrEF ef 10-15% and MDS - Patient blood pressure is around 97/54 Plan: -Continue midodrine 10 mg 3 times daily -IV fluids were given initially during admission -IV albumin 25 g x 1 #UCx Psuedomonal - Continuing antiobiotics given immunocompromised state # Pancytopenia # Myelodysplastic syndrome Initial labs: WBC 0.8, hemoglobin 9.1, hematocrit 26.7, platelet 35. MCV within normal limits Patient was on Azocitidine for myelodysplastic syndrome and requires frequent transfusions and Filgastrim Family informed that chemotherapy was held last week. Family has been thinking of hospice for the patient. ANC count 100, 03/09 - 1 unit of platelet was given before I&D Given plan for discharge following IR drain placement in the right thigh abscess, plan for 2 units platelets to be transfused today Plan: - transfuse 1 additional platlet 03/12 to get plt level > 50 so can proceed with IR drainage - Transfuse 2 units platelets 03/11, -Follow-up CBC in a.m. 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 -Recommended to consider giving filgrastim and transfuse blood and give broad- spectrum antibiotics as necessary per oncology recs - Continue to monitor with CBC daily - Hold any anticoagulation due to low platelet count. DVT prophylaxis with SCDs only - Transfuse if hemoglobin < 7 - neutropenic precautions # ESTELLA on CKD stage IV -Possible cardiorenal syndrome Initial labs: BUN 65, creatinine 2.1 Patient's baseline creatinine usually 1.5-1.8 Given 1 L normal saline in ED Patient has a history of HFrEF, important not to overload patient with IVF Plan: - Continue to monitor with CMP daily - Avoid nephrotoxic agents - IVF: LR at 60 mL/h x 1 L - Albumin 25 g given x 1 #Speech Stuttering #Essential tremors #? 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 ? Ammonia level less than 10, B12 1762, folate within normal limits. TSH 10.93. ?Pending thiamine and free T4 1.30 Plan: -Neurology recommended with buspirone 5 mg 3 times daily for anxiety -Speech therapy recommended Chopped food to optimize independence with meals. -Consulted neurology for further recommendations ?Neurology is following the case. Neurology considerations are likely related to stress-induced tremor and stuter/psychogenic, medication induced parkinsonism, cerebellar CVA, vitamin deficiency, electrolyte abnormality ?Adjusted levothyroxine from 25 mcg to 50 mcg IV daily ? Follow-up with thyroid functions in 4 to 6 weeks #Subclinical hypothyroidism - Patient is already on levothyroxine 25 mcg - TSH 10.93, free T4 1.30 Plan: -Increase of dose of levothyroxine to 50 mcg # HFrEF, EF 10 to 15% # Hx Hypertension TTE 02/16/25: LVEF 10 to 15% Home meds (per 02/24/25 discharge summary): Carvedilol 3.215 mg PO BID, Entresto 0.5 mg PO BID, Midodrine 10 mg PO TID BP in ED: sBP 93-107 / dBP 52-57 Initial labs: BNP elevated 2003 Initial chest x-ray showed vascular congestion. Right upper extremity Doppler negative for DVT Plan: - Resume home Coreg - Continue midodrine. Continue to monitor on telemetry, can hold Coreg if hypotensive (BP < 90/70) - Hold Entresto (2/2 ESTELLA) - Fluid restrictions - 1.5 L / day - Daily weights - Strict I&Os - Careful hydration #Elevated Vitamin B12 - Vitamin B12 1762 Plan: -Outpatient follow-up # Prolonged QTc Initial EKG showed QTc 531 Plan: - Continue to monitor on telemetry - Avoid QTc prolonging agents - replete electrolytes as necessary # Left buttock erythema Plan: - Frequent turns, continue to monitor - Wound care # Benign prostatic hypertrophy Plan - Continue home Tamsulosin 0.4 mg PO daily #Left hand itchiness Patient reported that after IV placement on left hand that he was experiencing itchiness, consider dermatitis to adhesive used for IV ? Topical Benadryl cream as needed to affected areas Dispo: Plan for home with home health patient family requesting help with hospital bed, pending IR drain placement tomorrow and platelet transfusion this evening DVT prophylaxis: SCDs GI prophylaxis: Protonix 20 Diet: Cardiac diet, n.p.o. at midnight Lines: Peripheral IV, condom catheter Code status: Full code Case discussed with my senior resident Dr. Gilliam Case discussed with my attending Dr. Jorge Hoang MD PGY-1 Attending Provider Attestation/Addendum I, Kamilla Patel DO, attest that I was physically present for the kulkarni portions of the service and evaluated the patient with the resident and I reviewed and discussed the case with the resident and agree with the resident's findings and plans of care as documented above Patient seen and eval this a.m. Patient complains of pain in his posterior right thigh secondary to abscess with dressing in place and surrounding erythema, fluctuation and tenderness to palpation. Patient had been pending IR aspiration of abscess, but due to low platelet count, procedure was postponed for tomorrow. Will transfuse platelets with a goal of 50,[address] n.p.o. after midnight and plan for aspiration of abscess in a.m. Continue with doxycycline at this time as cultures are positive for MRSA. Patient has otherwise been afebrile.
--- NOTE | 2025-03-12 07:46 | PD.RESDS ---
Planned Discharge Date 03/13/25 DS: Providers Provider Date of admission: 03/06/25 21:49 Primary care physician: Physician No Primary/Family Admitting Provider: Celio Mace DO Attending Provider on Admission: Frank August MD Consults: 03/06/25 20:33 Consult to General Surgery Stat Comment: Intramuscular abscess right thigh Consulting Provider: Palma Austni 03/07/25 15:29 Referral Speech Therapy Routine Comment: stutter, progressive 03/08/25 09:51 Consult to Neurology / Tele-Neurology Routine Comment: speech incoherence Consulting Provider: Piotr Haskins 03/09/25 05:42 Referral Registered Dietitian Routine Comment: Referral Wound Care Routine Comment: 03/09/25 15:18 Referral OP Wound Healing Dept Routine Comment: Instructions: Right inner thigh abscess s/p I&D 03/09/25 15:46 Referral Physical Therapy Routine Comment: Physician Instructions: Attending Provider on DC: RESIDENT Cinda Discharging Provider: RESIDENT Cinda Hospital Course Hospital Course Hospital course: No acute events overnight Hemoglobin stable at 8 Patient continues to have erythema of right lower extremity and pain, CT lower extremity reveals abscess remains in the right medial thigh, with plan for IR drain tomorrow. Time Spent with Patient Time attestation: Total time spent providing and/or coordinating discharge services: Home Health Home Health Referral Orders: 03/10/25 14:02 Home Health Referral Routine Reason For Exam: Generalaized weakness, leg abscess Home-Bound The patient must either because of illness or injury, need the aid of supportive devices such as crutches, canes, wheelchairs, and walkers; the use of special transportation; or the assistance of another person in order to leave their place of residence; OR have a condition such that leaving his or her home is medically contraindicated. In addition, the patient also meets the following criteria: patient is normally unable to leave the home and leaving home requires considerable taxing effort. Addendum to Home Health Certification Practitioner's Certification: I certify that the patient has been under my care in the hospital and the care of attending physician (see below). We had a [id number] encounter on (see date below). My clinical findings indicate that the patient is home bound per the above criteria and the Home Health Services noted in these orders are medically necessary. The primary reason for the [id number] encounter is related to the fact that the patient requires home health services. Date Certifying [id number] Physician Encounter: 03/06/25 Physician's Name who will Assume Oversight for Services: Ray Gillette (PCP) Physician's Phone No.who will Assume Oversight for Service: ENTER[employer]TEGRATION DEVELOPER - Community Resources: No PT to Evaluate: Yes PT to evaluate and provide a treatmnet plan to increase patient's mobility and strength. Wound Care: No Home Health RN - Wound Care Order: Right thigh abscess IV Therapy: No RN Safety Evaluation: Yes RN to evaluate and create a plan of care that will produce positive outcomes. Palliative Treatment: No Palliative treatment and evaluate the need for hospice. Home Health Aide - Personal Care: No Home Health Aide to assist with any ADL's. Exam Vital Signs Temp Pulse Resp BP Pulse Ox O2 Del Method O2 Flow Rate 97.2 F 99 23 H 106/75 100 Nasal Cannula 3 03/12/25 06:35 03/12/25 06:35 03/12/25 06:35 03/12/25 06:35 03/12/25 06:35 03/12/25 03:52 03/12/25 06:35 Discharge Plan Plan Patient Disposition: Home w/HOME HEALTH Patient condition on transfer: Stable Care Plan Goals: You have been started on the following medications: -Buspirone 5mg three times daily -Bactrim Your levothyroxine has been increased to 50 mcg daily The following meds are being HELD: -aspirin, finestaride, entresto, hydroxyzine Please follow up with your primary doctor within 7-10 days. Please see your vp of product about restarting your home medications. Please see Dr. Haskins outpatient for follow up. Please follow up with wound care outpatient. F/U with thyroid functions after 6-8 weeks to adjust levothyroxine dose Speech therapy recommends a soft, chopped diet. Please return to ED if you develop new or worsening symptoms. Prescriptions/Referrals Prescriptions/Med Rec: New levothyroxine 25 mcg Tablet 50 mcg PO ACBR 30 Days Qty: 60 0RF buspirone 5 mg Tablet 5 mg PO TID 30 Days Qty: 90 0RF Continued pantoprazole 40 mg tablet,delayed release (DR/EC) 40 mg PO DAILY Patient Comments: TAKE 1 TABLET BY MOUTH EVERY DAY 30 MINUTES BEFORE BREAKFAST tamsulosin 0.4 mg capsule 0.4 mg PO DAILY acetaminophen [Tylenol] 325 mg tablet 650 mg PO BID PRN (Reason: pain) Qty: 14 0RF spironolactone 25 mg tablet 25 mg PO QDAY Patient Comments: TAKE 1 TABLET BY MOUTH EVERY DAY FOR 90 DAYS carvedilol [Coreg] 3.125 mg tablet 3.125 mg PO BID Qty: 60 0RF Rx Instructions: must administer with a meal/food midodrine 10 mg tablet 10 mg PO TID 30 Days Qty: 90 0RF Rx Instructions: Hold if BP >140/80 Discontinued hydroxyzine HCl 50 mg tablet 50 mg PO QID PRN (Reason: Anxiety) levothyroxine 25 mcg tablet 25 mcg PO DAILY Patient Comments: TAKE 1 TABLET BY MOUTH EVERY DAY finasteride 5 mg tablet 5 mg PO DAILY aspirin 81 mg Tablet 81 mg PO DAILY fluticasone propionate 50 mcg/actuation [place],Suspension 1 spray INTRANASAL BID Entresto 24-26 mg tablet 0.5 tab PO BID Qty: 60 2RF clotrimazole 1 % cream 1 applic topical BID Qty: 15 0RF Referrals: Doc - Wound Care,Generic [Physician] - No Primary/Family,Physician [Primary Care Provider] - Piotr Haskins MD [Physician] - Patient/Caregiver Discharge Instructions Discharge Activity: activity as tolerated Education Materials: When You Need a Blood Transfusion ..., Neutropenia, Dysphagia Diet- Managing Drinks, Dysphagia Diet- Managing Foods, ED Abscess, Incision And Drainage Print Language: Italian Stand Alone Forms: [employer] Award Info., Patient Portal Info Letter
[2025-03-12] MEDS: TAMSULOSIN HCL 0.4 MG CAPSULE PO (08:16)
[2025-03-12] MEDS: PANTOPRAZOLE 20 MG TABLET PO (08:16)
[2025-03-12] MEDS: DOXYCYCLINE INJ 100 MG in SODIUM CHLORIDE 0.9% (POP) 100 ML IV ×2 (08:17→20:31)
[2025-03-12 08:25] LABS: Basophils # (Auto) 0.0 Thou/mm3 (0.0-0.2); Basophils % (Auto) 1 % (0-2.5); Eosinophils # (Auto) 0.0 Thou/mm3 (0.0-0.5); Eosinophils % (Auto) 4 % (0-10); Hematocrit 23.6 % (41.0-53.0); Immature Granulocytes Auto 0.00 Thou/mm3 (0.00-0.00); Lymphocytes # (Auto) 0.4 Thou/mm3 (1.0-4.8); Lymphocytes % (Auto) 59 % (10-50); Mean Corpuscular HGB Conc 33.1 g/dl (31.0-37.0); Mean Corpuscular Hemoglobin 28.5 pg (25.0-35.0); Mean Corpuscular Volume 86 fL (80-100); Monocytes # (Auto) 0.1 Thou/mm3 (0.0-0.8); Monocytes % (Auto) 7 % (0-12); Neutrophils # (Auto) 0.2 Thou/mm3 (1.8-7.7); Neutrophils % (Auto) 28 % (37-80); Nucleated Red Blood Cell # 0.00 Thou/mm3 (0.00-0.00); Nucleated Red Blood Cell % 0 /100 WBC (0); RDW Standard Deviation 52.7 fL (35.1-43.9); Red Blood Count 2.74 Miln/mm3 (4.50-5.90)
[2025-03-12 08:30] LABS: Hemoglobin 7.8 g/dL (13.5-16.0); Platelet Count 38 Thou/mm3 (140-440); White Blood Count 0.7 Thou/mm3 (3.8-10.6)
[2025-03-12 08:42] LABS: INR 1.3 (0.9-1.3); Prothrombin Time 14.1 Seconds (9.0-12.2)
[2025-03-12 09:14] LABS: Alanine Aminotransferase 7 U/L (10-49); Albumin, Serum 2.8 gm/dL (3.4-4.8); Albumin/Globulin Ratio 0.6 (1.2-2.2); Alkaline Phosphatase 63 U/L (46-116); Anion Gap 8 (7-16); Aspartate Amino Transferase < 10 U/L (0-34); BUN/Creatinine Ratio 29 Ratio (12-20); Bilirubin,Total 0.7 mg/dL (0.3-1.2); Blood Urea Nitrogen 49 mg/dL (9-23); Calcium 9.0 mg/dL (8.3-10.6); Calcium (Corrected) 10.0 mg/dL (8.5-10.1); Carbon Dioxide 22.8 mMol/L (20.0-31.0); Chloride 111 mMol/L (98-107); Creatinine (Component) 1.7 mg/dL (0.6-1.3); Estimated Creatinine Clearance 27.6 mL/min (>60); Globulin 4.6 gm/dL (2.3-3.5); Glucose 114 mg/dL (74-106); Osmolality,Calculated 297 (275-295); Potassium 4.7 mMol/L (3.4-5.1); Sodium 142 mMol/L (136-145); Total Protein 7.4 gm/dL (5.7-8.2); eGFR 39 See Note
--- NOTE | 2025-03-12 09:53 | PC.NURSE ---
Recvd order for abscess drainage of thigh. Reviewed order with Dr. Contreras. Platelet count is 38K and per Dr. Chopra he would not do the drain at this time due to the platelet count, and is recommending a surgery consult. Durga EUGENE made aware.
[2025-03-12 10:56] LABS: Slide Review Platelets confirmed
--- NOTE | 2025-03-12 20:22 | PD.RESPRO ---
Documentation for date of: 03/12/25 Subjective Subjective Interval history: Patient evaluated bedside. No new concerns at this time. Patient receiving 2 units platelets. Per nursing staff, patient's mentation fluctuates throughout the day with worsening confusion in the night and early mornings. Exam Vital Signs Temp Pulse Resp BP Pulse Ox O2 Del Method O2 Flow Rate 97.3 F 99 24 H 127/86 H 98 Nasal Cannula 2 03/12/25 18:34 03/12/25 18:34 03/12/25 18:34 03/12/25 18:34 03/12/25 18:34 03/12/25 16:00 03/12/25 18:34 Narrative Exam General: No acute distress, well nourished Eye: PERRL, EOMI, normal conjunctiva, no scleral icterus HENT: Normocephalic, atraumatic, hearing intact to conversation at normal volume, moist oral mucosa Neck: Supple, non-tender, no JVD, no lymphadenopathy Lungs: Non-labored respirations, symmetric chest rise Heart: Peripheral pulses intact bilaterally Abdomen: Soft, non-tender, non-distended Musculoskeletal: Normal range of motion and strength Skin: Skin is warm, dry, no rashes or lesions. Psychiatric: Cooperative, appropriate mood and affect Neurologic: Mental status: Orientation: AOx2 Communication: Patient is cooperative and can follow simple instructions Language: No stuttering, normal rate and volume, comprehension intact Cranial nerves: CN II: Visual santoyo intact CN III: Pupils equal, round, and reactive to light CN III, IV, : No gaze deviation, no nystagmus Horizontal pursuit: intact Vertical pursuit: intact Ptosis: none CN V: Facial sensation to light touch intact bilaterally at the forehead, cheeks, and jaw line CN VII: Face symmetric, no facial droop appreciated CN VIII: Able to hear and respond to conversation at normal volume, intact to finger rub CN IX, X: Palate elevation symmetric, uvula midline CN XI: Head turn and shoulder shrug strong, symmetric bilaterally CN XII: Normal tongue protrusion without deviation, no fasciculations Motor: Normal bulk and tone No atrophy No Action and intention tremor appreciated Muscle strength: Elbow flexion: R 5/5 L 5/5 Elbow extension: R 5/5 L 5/5 Hip flexion: R 5/5 L 5/5 Hip extension: R 5/5 L 5/5 Able to sit on edge of bed with support Sensory: RUE: Light touch intact LUE: Light touch intact RLE: Light touch intact LLE: Light touch intact Objective Labs 03/15/25 14:34 03/15/25 04:54 Labs: Laboratory Results - last 24 hr 03/10/25 03/12/25 11:06 07:45 WBC 0.7 L* RBC 2.74 L Hgb 7.8 L Hct 23.6 L MCV 86 MCH 28.5 MCHC 33.1 RDW Std Deviation 52.7 H Plt Count 38 L D Neut % (Auto) 28 L Lymph % (Auto) 59 H Ness % (Auto) 7 Eos % (Auto) 4 Baso % (Auto) 1 Neut # (Auto) 0.2 L Lymph # (Auto) 0.4 L Ness # (Auto) 0.1 Eos # (Auto) 0.0 Baso # (Auto) 0.0 Immature Gran # (Auto) 0.00 Absolute Nucleated RBC 0.00 Immature Gran % 0 Nucleated RBC % 0 PT 14.1 H INR 1.3 Sodium 142 Potassium 4.7 Chloride 111 H Carbon Dioxide 22.8 Anion Gap 8 BUN 49 H Creatinine 1.7 H Estim Creat Clear Calc 27.6 L eGFR 39 L BUN/Creatinine Ratio 29 H Glucose 114 H Calculated Osmolality 297 H Calcium 9.0 Corrected Calcium 10.0 Total Bilirubin 0.7 AST < 10 ALT 7 L Alkaline Phosphatase 63 Total Protein 7.4 Albumin 2.8 L Globulin 4.6 H Albumin/Globulin Ratio 0.6 L Misc Test Result Platelets confirmed Blood Type O Positive Antibody Screen NEGATIVE Crossmatch See Detail Blood Bank Wristband ID Yes Blood Bank Comment PLATP Ready Quality Measures Quality Measures VTE prophylaxis (SCDs) Advance care planning discussed with:: patient Assessment & Plan Assessment Current Active Medications: Generic Name Dose Route Start Last Admin Trade Name Freq PRN Reason Stop Dose Admin Acetaminophen 650 mg 03/06/25 21:49 Acetaminophen 325 Mg Tablet PO 04/05/25 21:48 Q6H PRN Fever > 100.3 or pain Protocol Hydrocodone Bitart/Acetaminophen 1 tab 03/08/25 14:15 03/11/25 04:39 Hydrocodone/Apap 5/325 Tablet PO 03/13/25 14:14 1 tab Q4HR PRN Administration PAIN 4-10 Buspirone HCl 5 mg 03/09/25 17:00 03/12/25 14:17 Buspirone Hcl 5 Mg Tablet PO 04/08/25 16:59 5 mg TID PRASANTH Administration Carvedilol 3.125 mg 03/07/25 09:00 03/12/25 08:16 Carvedilol 3.125 Mg Tablet PO 04/06/25 08:59 3.125 mg BID PRASANTH Administration Piperacillin/Tazobactam/Dextrose 3.375 gm in 50 mls @ 12.5 mls/hr 03/09/25 22:00 03/12/25 14:17 Zosyn IV 03/16/25 21:59 12.5 mls/hr Q8HR PRASANTH Administration Protocol Doxycycline Hyclate 100 mg/ 100 mls @ 100 mls/hr 03/09/25 21:00 03/12/25 08:17 Sodium Chloride IV 03/16/25 20:59 100 mls/hr BID PRASANTH Administration Levothyroxine Sodium 50 mcg 03/10/25 06:00 03/12/25 05:41 Levothyroxine Sodium 25 Mcg Tablet PO 04/09/25 05:59 50 mcg ACBR PRASANTH Administration Midodrine 10 mg 03/07/25 06:00 03/12/25 14:17 Midodrine 5 Mg Tablet PO 04/06/25 05:59 10 mg TID PRASANTH Administration Ondansetron HCl 4 mg 03/06/25 21:54 Ondansetron Inj 2 Mg/Ml Inj 2 Ml IVP 04/05/25 21:53 Q6H PRN NAUSEA OR VOMITING Protocol Pantoprazole Sodium 20 mg 03/10/25 09:00 03/12/25 08:16 Pantoprazole 20 Mg Tablet PO 04/09/25 08:59 20 mg QDAY PRASANTH Administration Protocol Sennosides 1 tab 03/06/25 21:54 Senna Tablet PO 04/05/25 21:53 QDAY PRN constipation Protocol Tamsulosin HCl 0.4 mg 03/07/25 09:00 03/12/25 08:16 Tamsulosin Hcl 0.4 Mg Capsule PO 04/06/25 08:59 0.4 mg DAILY PRASANTH Administration Plan # Stuttering, resolved # Action tremor, resolved Symptoms began during previous hospitalization in January. Action tremor worse in right upper extremity than left, exacerbated when patient discusses topics that are anxiety provoking and are absent at rest or with focus. Neuroconsult initially for parkinsonian symptoms. Patient does not exhibit cogwheel rigidity or kinesia. No asterixis appreciated. Symptom resolution when patient takes a deep breath, calms himself, and focuses on what he wants to say. LFT WNL, Ammonia <10, B12 high 1762, folate WNL, TSH high 10.93, free T4 WNL DDX: Stress-induced tremor and stutter/psychogenic, medication induced parkinsonianism, cerebellar CVA, vitamin deficiency, electrolyte abnormality, hepatic/metabolic encephalopathy. No concern for Parkinson dz at this time. Intermittent tremors and staccato speech are most likely anxiety driven. No concern for Parkinson disease or essential tremor at this time. Plan: - Pending thiamine - Continnue Buspar 5 mg TID for anxiety, tolerating appropriately - F/U outpatient with Dr. Haskins - Patient cleared for discharge from neurological perspective. Neurology will sign off at this time. # Right lower extremity posterior medial abscess Patient initially developed right thigh fungal infection on 02/22 during previous hospitalization. Started on clotrimazole topical. Patient reports that he continued to apply the clotrimazole after discharge. Patient reports that he has noticed progressive swelling, redness, pain in this area. Physical exam showed nonfluctuant erythematous and warm area along the posterior medial aspect of the thigh. Right lower extremity CT without contrast showed low-density mass in the posteromedial thigh in adductor christiane muscle measuring 4.7 x 3.8 x 10.[address] I[address] CT LE: Abscess remains in the medial posterior thigh, 5.0 x 2.9 x 10.2 cm Plan: - Management per primary - plan for second I&D # Pancytopenia # Myelodysplastic syndrome Initial labs: WBC 0.8, hemoglobin 9.1, hematocrit 26.7, platelet 35. 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 Right upper extremity Doppler negative for DVT Plan: - Management per primary # Prolonged QTc Initial EKG showed QTc 531 Plan: - Management per primary # Hypothyroidism TSH high 10.93, free T4 1.3 WNL Plan: - Management per primary - increased levothyroxine dose from 25 mcg daily to 50 mcg daily (inital dose of patient with CAD), monitor for angina Plan discussed with Dr. Divine Lozano, PGY1 Attending Provider Attestation/Addendum Patient was seen and examined at the bedside and I agreed with resident's findings, assessment and plan of care. Patient has not had any episodes after admission. The patient is back to baseline. Continue with the current management. Will sign off for now as he is stable.
[2025-03-13] VITALS (18 sets, daily range): BP systolic 97–139; BP diastolic 60–80; PULSE 83–99; RESP 12–22; TEMP 36.1–36.9; O2SAT 93–100; BMI 22.6
[2025-03-13] MEDS: MIDODRINE 5 MG TABLET 10 MG PO ×3 (05:37→21:33)
[2025-03-13] MEDS: LEVOTHYROXINE SODIUM 25 MCG TABLET 50 MCG PO (05:37)
[2025-03-13] MEDS: PIPER/TAZO 3.375 GM PREMIX 3.375 GM/50 ML BAG IV ×3 (05:39→22:43)
[2025-03-13 06:39] LABS: Basophils # (Auto) 0.0 Thou/mm3 (0.0-0.2); Eosinophils # (Auto) 0.0 Thou/mm3 (0.0-0.5); Monocytes # (Auto) 0.0 Thou/mm3 (0.0-0.8); Nucleated Red Blood Cell # 0.00 Thou/mm3 (0.00-0.00); Nucleated Red Blood Cell % 0 /100 WBC (0)
[2025-03-13 06:41] LABS: Basophils % (Auto) 3 % (0-2.5); Eosinophils % (Auto) 2 % (0-10); Hematocrit 24.6 % (41.0-53.0); Immature Granulocytes Auto 0.07 Thou/mm3 (0.00-0.00); Lymphocytes # (Auto) 0.4 Thou/mm3 (1.0-4.8); Lymphocytes % (Auto) 62 % (10-50); Mean Corpuscular HGB Conc 32.5 g/dl (31.0-37.0); Mean Corpuscular Hemoglobin 28.5 pg (25.0-35.0); Mean Corpuscular Volume 88 fL (80-100); Monocytes % (Auto) 5 % (0-12); Neutrophils # (Auto) 0.1 Thou/mm3 (1.8-7.7); Neutrophils % (Auto) 17 % (37-80); RDW Standard Deviation 53.5 fL (35.1-43.9); Red Blood Count 2.81 Miln/mm3 (4.50-5.90)
[2025-03-13 06:44] LABS: INR 1.3 (0.9-1.3); Partial Thromboplastin Time 25.6 Seconds (22.0-36.0); Prothrombin Time 14.4 Seconds (9.0-12.2)
[2025-03-13 06:55] LABS: Hemoglobin 8.0 g/dL (13.5-16.0); White Blood Count 0.6 Thou/mm3 (3.8-10.6)
[2025-03-13 07:24] LABS: Alanine Aminotransferase 9 U/L (10-49); Albumin, Serum 2.9 gm/dL (3.4-4.8); Albumin/Globulin Ratio 0.6 (1.2-2.2); Alkaline Phosphatase 71 U/L (46-116); Anion Gap 9 (7-16); Aspartate Amino Transferase 14 U/L (0-34); BUN/Creatinine Ratio 24 Ratio (12-20); Bilirubin,Total 0.9 mg/dL (0.3-1.2); Blood Urea Nitrogen 43 mg/dL (9-23); Calcium 9.0 mg/dL (8.3-10.6); Calcium (Corrected) 9.9 mg/dL (8.5-10.1); Carbon Dioxide 18.9 mMol/L (20.0-31.0); Chloride 112 mMol/L (98-107); Creatinine (Component) 1.8 mg/dL (0.6-1.3); Estimated Creatinine Clearance 26.1 mL/min (>60); Globulin 5.0 gm/dL (2.3-3.5); Glucose 103 mg/dL (74-106); Magnesium 2.4 mg/dL (1.6-2.6); Osmolality,Calculated 290 (275-295); Phosphorous 4.1 mg/dL (2.4-5.1); Potassium 5.0 mMol/L (3.4-5.1); Sodium 140 mMol/L (136-145); Total Protein 7.9 gm/dL (5.7-8.2); eGFR 36 See Note
--- NOTE | 2025-03-13 07:40 | PD.RESDS ---
Planned Discharge Date 03/13/25 DS: Providers Provider Date of admission: 03/06/25 21:49 Primary care physician: Physician No Primary/Family Admitting Provider: Celio Mace DO Attending Provider on Admission: Frank August MD Consults: 03/06/25 20:33 Consult to General Surgery Stat Comment: Intramuscular abscess right thigh Consulting Provider: Palma Austin 03/07/25 15:29 Referral Speech Therapy Routine Comment: stutter, progressive 03/08/25 09:51 Consult to Neurology / Tele-Neurology Routine Comment: speech incoherence Consulting Provider: Piotr Haskins 03/09/25 05:42 Referral Registered Dietitian Routine Comment: Referral Wound Care Routine Comment: 03/09/25 15:18 Referral OP Wound Healing Dept Routine Comment: Instructions: Right inner thigh abscess s/p I&D 03/09/25 15:46 Referral Physical Therapy Routine Comment: Physician Instructions: Attending Provider on DC: RESIDENT Cinda Discharging Provider: RESIDENT Cinda Hospital Course Hospital Course Hospital course: Patient evaluated bedside. No new concerns at this time. Patient receiving 2 units platelets. Per nursing staff, patient's mentation fluctuates throughout the day with worsening confusion in the night and early mornings. Time Spent with Patient Time attestation: Total time spent providing and/or coordinating discharge services: Exam Vital Signs Temp Pulse Resp BP Pulse Ox O2 Del Method O2 Flow Rate 97.4 F 99 19 117/76 99 Nasal Cannula 3 03/13/25 04:00 03/13/25 05:37 03/13/25 04:00 03/13/25 05:37 03/13/25 04:00 03/13/25 04:00 03/13/25 04:00 Discharge Plan Plan Patient Disposition: Home w/HOME HEALTH Patient condition on transfer: Stable Care Plan Goals: You have been started on the following medications: -Buspirone 5mg three times daily -Bactrim Your levothyroxine has been increased to 50 mcg daily The following meds are being HELD: -aspirin, finestaride, entresto, hydroxyzine Please follow up with your primary doctor within 7-10 days. 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 Please see Dr. Haskins outpatient for follow up. Please follow up with wound care outpatient. F/U with thyroid functions after 6-8 weeks to adjust levothyroxine dose Speech therapy recommends a soft, chopped diet. Please return to ED if you develop new or worsening symptoms. Prescriptions/Referrals Prescriptions/Med Rec: New levothyroxine 25 mcg Tablet 50 mcg PO ACBR 30 Days Qty: 60 0RF buspirone 5 mg Tablet 5 mg PO TID 30 Days Qty: 90 0RF Continued pantoprazole 40 mg tablet,delayed release (DR/EC) 40 mg PO DAILY Patient Comments: TAKE 1 TABLET BY MOUTH EVERY DAY 30 MINUTES BEFORE BREAKFAST tamsulosin 0.4 mg capsule 0.4 mg PO DAILY acetaminophen [Tylenol] 325 mg tablet 650 mg PO BID PRN (Reason: pain) Qty: 14 0RF spironolactone 25 mg tablet 25 mg PO QDAY Patient Comments: TAKE 1 TABLET BY MOUTH EVERY DAY FOR 90 DAYS carvedilol [Coreg] 3.125 mg tablet 3.125 mg PO BID Qty: 60 0RF Rx Instructions: must administer with a meal/food midodrine 10 mg tablet 10 mg PO TID 30 Days Qty: 90 0RF Rx Instructions: Hold if BP >140/80 Discontinued hydroxyzine HCl 50 mg tablet 50 mg PO QID PRN (Reason: Anxiety) levothyroxine 25 mcg tablet 25 mcg PO DAILY Patient Comments: TAKE 1 TABLET BY MOUTH EVERY DAY finasteride 5 mg tablet 5 mg PO DAILY aspirin 81 mg Tablet 81 mg PO DAILY fluticasone propionate 50 mcg/actuation [place],Suspension 1 spray INTRANASAL BID Entresto 24-26 mg tablet 0.5 tab PO BID Qty: 60 2RF clotrimazole 1 % cream 1 applic topical BID Qty: 15 0RF Referrals: Doc - Wound Care,Generic [Physician] - No Primary/Family,Physician [Primary Care Provider] - Piotr Haskins MD [Physician] - Patient/Caregiver Discharge Instructions Discharge Activity: activity as tolerated Education Materials: When You Need a Blood Transfusion ..., Neutropenia, Dysphagia Diet- Managing Drinks, Dysphagia Diet- Managing Foods, ED Abscess, Incision And Drainage Print Language: Bengali Stand Alone Forms: Ebony Award Info., Patient Portal Info Letter
--- NOTE | 2025-03-13 07:46 | ESPR_ITS ---
<Statement entered by Devonte Balbuena MD - 03/13/25 18:00> Patient was seen and examined at the bedside. No acute overnight events reported. Patient received 1 unit of platelet. Patient was itching this morning and was given meclizine. IR refused to do CT-guided drainage since abscess was deeper and recommendations were to perform surgical drainage. Dr. Austin took the patient for surgical drainage of abscess. Will continue postop management. Was resumed. Will continue on antibiotics. I discussed and supervised with the web development intern physician who took care of this patient. I personally saw and examined the patient. I agree with most of the assessment and plan. Disclaimer: Despite multiple revisions, due to the dictation software being used, the document bellow may not be free of grammatical errors including phonetic/typographic errors. However, this does not deter from our commitment to providing health care in the patient's best interest in mind. Plan of care discussed with attending Physician Dr. Jorge Balbuena MD PGY-3 Documentation for date of: 03/13/25 Subjective Subjective Interval history: No acute events overnight Patient received additional unit of platelets to try and get levels greater than 50, repeat labs showed that platelets are at [address] Del Toro, abscess is too big to drain with IR drain, he recommends surgery Plan today for surgery with Dr. Arango for repeat washout of abscess of right medial thigh abscess Exam Vital Signs Temp Pulse Resp BP Pulse Ox O2 Del Method O2 Flow Rate 97.4 F 99 19 117/76 99 Nasal Cannula 3 03/13/25 04:00 03/13/25 05:37 03/13/25 04:00 03/13/25 05:37 03/13/25 04:00 03/13/25 04:00 03/13/25 04:00 Narrative Exam GENERAL APPEARANCE: Elderly frail-appearing male with occasional stutter speech in no acute distress. Less anxious today compared to prior. Saturating well on room air. Sitting upright in bed with glasses HEENT: NC, AT. Dry mucous membrane. EOMI, clear conjunctiva, oropharynx clear. NECK: No stiffness or restricted ROM. HEART: Regular rate and regular rhythm with CONSTRUCTION MANAGER-D, normal S1/S2, no m/r/g LUNGS: CTAB, moving air well. No crackles or wheezes are heard. ABDOMEN: Soft, nontender, nondistended with good bowel sounds heard. , condom cath in place BACK: No CVAT, no obvious deformity. EXTREMITIES: upper extremity tremors noted to be less than prior NEUROLOGICAL: Grossly nonfocal. Alert and oriented, moving all 4 extremities. Patient has action tremor no resting tremor noted. CN not formally tested but appear grossly intact. Stuttering with speech occasionally Skin: Right medial thigh with erythema. Psych: Stuttering speech (much improved from yesterday) with appropriate mood and affect Objective Labs 03/14/25 05:00 03/14/25 05:00 Labs: Laboratory Results - last 24 hr 03/10/25 03/12/25 03/13/25 11:06 07:45 05:44 WBC 0.7 L* RBC 2.74 L Hgb 7.8 L Hct 23.6 L MCV 86 MCH 28.5 MCHC 33.1 RDW Std Deviation 52.7 H Plt Count 38 L D Neut % (Auto) 28 L Lymph % (Auto) 59 H Gray % (Auto) 7 Eos % (Auto) 4 Baso % (Auto) 1 Neut # (Auto) 0.2 L Lymph # (Auto) 0.4 L Gray # (Auto) 0.1 Eos # (Auto) 0.0 Baso # (Auto) 0.0 Immature Gran # (Auto) 0.00 Absolute Nucleated RBC 0.00 Immature Gran % 0 Nucleated RBC % 0 PT 14.1 H 14.4 H INR 1.3 1.3 APTT 25.6 Sodium 142 140 Potassium 4.7 5.0 Chloride 111 H 112 H Carbon Dioxide 22.8 18.9 L Anion Gap 8 9 BUN 49 H 43 H Creatinine 1.7 H 1.8 H Estim Creat Clear Calc 27.6 L 26.1 L eGFR 39 L 36 L BUN/Creatinine Ratio 29 H 24 H Glucose 114 H 103 Calculated Osmolality 297 H 290 Calcium 9.0 9.0 Corrected Calcium 10.0 9.9 Phosphorus 4.1 Magnesium 2.4 Total Bilirubin 0.7 0.9 AST < 10 14 ALT 7 L 9 L Alkaline Phosphatase 63 71 Total Protein 7.4 7.9 Albumin 2.8 L 2.9 L Globulin 4.6 H 5.0 H Albumin/Globulin Ratio 0.6 L 0.6 L Misc Test Result Platelets confirmed Blood Type O Positive Antibody Screen NEGATIVE Crossmatch See Detail Blood Bank Wristband ID Yes Blood Bank Comment PLATP Ready Quality Measures Quality Measures VTE prophylaxis (SCDs) Advance care planning discussed with:: patient Assessment & Plan Assessment Current Active Medications: Generic Name Dose Route Start Last Admin Trade Name Freq PRN Reason Stop Dose Admin Acetaminophen 650 mg 03/06/25 21:49 Acetaminophen 325 Mg Tablet PO 04/05/25 21:48 Q6H PRN Fever > 100.3 or pain Protocol Hydrocodone Bitart/Acetaminophen 1 tab 03/08/25 14:15 03/11/25 04:39 Hydrocodone/Apap 5/325 Tablet PO 03/13/25 14:14 1 tab Q4HR PRN Administration PAIN 4-10 Buspirone HCl 5 mg 03/09/25 17:00 03/13/25 05:39 Buspirone Hcl 5 Mg Tablet PO 04/08/25 16:59 5 mg TID PRASANTH Administration Carvedilol 3.125 mg 03/07/25 09:00 03/12/25 20:31 Carvedilol 3.125 Mg Tablet PO 04/06/25 08:59 3.125 mg BID PRASANTH Administration Piperacillin/Tazobactam/Dextrose 3.375 gm in 50 mls @ 12.5 mls/hr 03/09/25 22:00 03/13/25 05:39 Zosyn IV 03/16/25 21:59 12.5 mls/hr Q8HR PRASANTH Administration Protocol Doxycycline Hyclate 100 mg/ 100 mls @ 100 mls/hr 03/09/25 21:00 03/12/25 20:31 Sodium Chloride IV 03/16/25 20:59 100 mls/hr BID PRASANTH Administration Levothyroxine Sodium 50 mcg 03/10/25 06:00 03/13/25 05:37 Levothyroxine Sodium 25 Mcg Tablet PO 04/09/25 05:59 50 mcg ACBR PRASANTH Administration Midodrine 10 mg 03/07/25 06:00 03/13/25 05:37 Midodrine 5 Mg Tablet PO 04/06/25 05:59 10 mg TID PRASANTH Administration Ondansetron HCl 4 mg 03/06/25 21:54 Ondansetron Inj 2 Mg/Ml Inj 2 Ml IVP 04/05/25 21:53 Q6H PRN NAUSEA OR VOMITING Protocol Pantoprazole Sodium 20 mg 03/10/25 09:00 03/12/25 08:16 Pantoprazole 20 Mg Tablet PO 04/09/25 08:59 20 mg QDAY PRASANTH Administration Protocol Sennosides 1 tab 03/06/25 21:54 Senna Tablet PO 04/05/25 21:53 QDAY PRN constipation Protocol Tamsulosin HCl 0.4 mg 03/07/25 09:00 03/12/25 08:16 Tamsulosin Hcl 0.4 Mg Capsule PO 04/06/25 08:59 0.4 mg DAILY PRASANTH Administration Plan 89-year-old male with past medical history of HFrEF (LVEF 10 to 15%), CAD, s/p CABG x 4, hypertension, CKD stage IV, myelodysplastic syndrome on chemo and transfusions, hypothyroidism who presents to the ED with right lower extremity posteromedial abscess, status post I&D with surgery wound cultures positive for MRSA, continue on antibiotics, the lower extremity shows abscess remains in the medial posterior thigh 5 x 3 x 10 cm, per Dr. Epperson abscess is too big to drain, recommend surgery therefore plan for surgery today with Dr. Arango. #Right lower extremity posterior medial abscess status post I&D day 3 Patient initially developed right thigh fungal infection on 629 during previous hospitalization. Started on clotrimazole topical. Patient reports that he continued to apply the clotrimazole after discharge. Patient reports that he has noticed progressive swelling, redness, pain in this area. Physical exam showed nonfluctuant erythematous and warm area along the posterior medial aspect of the thigh. Right lower extremity CT without contrast showed low-density mass in the posteromedial thigh in adductor christiane muscle measuring 4.7 x 3.8 x 10.5 - Patient given Rocephin x 1 and 1 L NS in ED then started on vancomycin and pip-tazo -Patient underwent I&D by general surgeon, Dr. Arango without complication. 20 cc pus was removed. -Vancomycin was discontinued. ? Wound cultures positive for MRSA ?Blood cultures negative x 48 hour ?ANC count 0.1 ?DC cefepime, Levaquin and Flagyl -03/11 CT lower extremity right Abscess remains in the medial posterior thigh, 5.0 x 2.9 x 10.2 cm Plan ?Repeat I&D with Dr. Arango for remnant abscess in the right medial posterior thigh ?Filgrastim 300 mcg given per oncology recs ?Changed to Zosyn 2.25 g and doxycycline 100 IV twice daily, plan for discharge on Bactrim ?Urine culture grew Pseudomonas sensitive - Follow-up with wound cultures - Postop pain management #Right lower extremity swelling concerning for DVT-R/0 On exam right ankle and foot were swollen compared to left Dx -Right lower extremity DVT ultrasound: No DVT #NAGMA -Possible diarrhoea -Patient had passage of loose stools in previous days Plan: -added Bicitra BID -F/u BMP #Loose bowel movements x 4-resolved Patient has reported 4 loose bowel movements yesterday, consider loose stools secondary to filgastram side effects versus antibiotic associated diarrhea given patient continues on Zosyn for right medial thigh abscess No loose stools today -Consider C. difficile PCR if loose bowel movements continue -CTM BMs # Hyperkalemia, resolved Potassium: 5.5 Plan ? Kayexalate given x 1 along with breathing treatment ? Kayexalate given x 1 ? Potassium dropped to 4.7 #Hyoptension -In setting of HFrEF ef 10-15% and MDS - Patient blood pressure is around 97/54 Plan: -Continue midodrine 10 mg 3 times daily -IV fluids were given initially during admission -IV albumin 25 g x 1 #UCx Psuedomonal - Continuing antiobiotics given immunocompromised state # Pancytopenia # Myelodysplastic syndrome Initial labs: WBC 0.8, hemoglobin 9.1, hematocrit 26.7, platelet 35. MCV within normal limits Patient was on Azocitidine for myelodysplastic syndrome and requires frequent transfusions and Filgastrim Family informed that chemotherapy was held last week. Family has been thinking of hospice for the patient. ANC count 100, 03/09 - 1 unit of platelet was given before I&D - 3 additional units of platelets were given prior to second I&D procedure with Dr. Arango platelet levels at 48 Plan: -Follow-up CBC in a.m. 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 -Recommended to consider giving filgrastim and transfuse blood and give broad- spectrum antibiotics as necessary per oncology recs - Continue to monitor with CBC daily - Hold any anticoagulation due to low platelet count. DVT prophylaxis with SCDs only - Transfuse if hemoglobin < 7 - neutropenic precautions # ESTELLA on CKD stage IV -Possible cardiorenal syndrome Initial labs: BUN 65, creatinine 2.1 Patient's baseline creatinine usually 1.5-1.8 Given 1 L normal saline in ED Patient has a history of HFrEF, important not to overload patient with IVF Plan: - Continue to monitor with CMP daily - Avoid nephrotoxic agents - IVF: LR at 60 mL/h x 1 L - Albumin 25 g given x 1 #Speech Stuttering #Essential tremors #? 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 ? Ammonia level less than 10, B12 1762, folate within normal limits. TSH 10.93. ?Pending thiamine and free T4 1.30 Plan: -Neurology recommended with buspirone 5 mg 3 times daily for anxiety -Speech therapy recommended Chopped food to optimize independence with meals. -Consulted neurology for further recommendations ?Neurology is following the case. Neurology considerations are likely related to stress-induced tremor and stuter/psychogenic, medication induced parkinsonism, cerebellar CVA, vitamin deficiency, electrolyte abnormality ?Adjusted levothyroxine from 25 mcg to 50 mcg IV daily ? Follow-up with thyroid functions in 4 to 6 weeks #Subclinical hypothyroidism - Patient is already on levothyroxine 25 mcg - TSH 10.93, free T4 1.30 Plan: -Increase of dose of levothyroxine to 50 mcg # HFrEF, EF 10 to 15% # Hx Hypertension TTE 02/16/25: LVEF 10 to 15% Home meds (per 02/24/25 discharge summary): Carvedilol 3.215 mg PO BID, Entresto 0.5 mg PO BID, Midodrine 10 mg PO TID BP in ED: sBP 93-107 / dBP 52-57 Initial labs: BNP elevated 2003 Initial chest x-ray showed vascular congestion. Right upper extremity Doppler negative for DVT Plan: - Resume home Coreg - Continue midodrine. Continue to monitor on telemetry, can hold Coreg if hypotensive (BP < 90/70) - Hold Entresto (2/2 ESTELLA) - Fluid restrictions - 1.5 L / day - Daily weights - Strict I&Os - Careful hydration #Elevated Vitamin B12 - Vitamin B12 1762 Plan: -Outpatient follow-up # Prolonged QTc Initial EKG showed QTc 531 Plan: - Continue to monitor on telemetry - Avoid QTc prolonging agents - replete electrolytes as necessary # Left buttock erythema Plan: - Frequent turns, continue to monitor - Wound care # Benign prostatic hypertrophy Plan - Continue home Tamsulosin 0.4 mg PO daily #Left hand itchiness Patient reported that after IV placement on left hand that he was experiencing itchiness, consider dermatitis to adhesive used for IV ? Topical Benadryl cream as needed to affected areas Dispo: Plan for home with home health patient family requesting help with hospital bed, pending another I&D with Dr. Arango for residual abscess in right medial thigh DVT prophylaxis: SCDs GI prophylaxis: Protonix 20 Diet: N.p.o. pending surgery Lines: Peripheral IV, condom catheter Code status: Full code Attending Provider Attestation/Addendum Kamilla Sommers DO, attest that I was physically present for the kulkarni portions of the service and evaluated the patient with the resident and I reviewed and discussed the case with the resident and agree with the resident's findings and plans of care as documented above Patient seen and evaluated this a.m. Patient endorses some pain in his right posterior thigh, but is able to find a comfortable placement at this time. He denies any fevers or chills otherwise. Patient had initially been scheduled for possible IR aspiration of abscess, but abscess is too large for drainage. Case was discussed with surgeon and will take patient to the OR in the afternoon. Will need wound care following procedure.
[2025-03-13 09:43] LABS: Platelet Count 48 Thou/mm3 (140-440)
[2025-03-13 09:44] LABS: Slide Review Platelets confirmed
[2025-03-13] MEDS: DOXYCYCLINE INJ 100 MG in SODIUM CHLORIDE 0.9% (POP) 100 ML IV ×2 (10:01→21:35)
[2025-03-13] MEDS: TAMSULOSIN HCL 0.4 MG CAPSULE PO (10:02)
[2025-03-13] MEDS: PANTOPRAZOLE 20 MG TABLET PO (10:02)
[2025-03-13] MEDS: MECLIZINE HCL 25 MG TABLET PO (10:07)
--- NOTE | 2025-03-13 10:31 | PC.NURSE ---
SUBMARINE ADVISORY TEAM WATCH OFFICER CALLED SPOKE TO [facility] INF[employer]ED NURSE DR. CRISTOBAL WOULD LIKE TO SPEAK WITH HOSPITALIST CARING FOR PATIENTS CARE. OF NOW DR. CRISTOBAL WILL NOT SEE PT DUE TO WOUND BEING OPEN AND LOW PLTS. MADE DR. MONTGOMERY AWARE EXTENSION FOR DR. CRISTOBAL GIVEN [id number]. NO NEW ORDERS AT THIS TIME.
--- NOTE | 2025-03-13 14:48 | ESPR_ITS ---
Documentation for date of: 03/13/25 Subjective Subjective Brief History: 89M with MDS, chronic systolic CHF, CAD s/p CABG, CKD, hypothyroidism and recent admission for neuropenic fevers admitted with R thigh abscess. Pt states the thigh began bothering him during his recent admission but he developed progressive pain and swelling prompting him to return to ER. He underwent CT of the RLE indicating an abscess of the muscle up to 10.5cm Narrative: Pt reports continued pain to the R thigh, states it is slightly better than on admission but still worsens with movement. CT repeated 03/11 showed abscess essen tially unchanged, IR recommending repeat attempt at open drainage due to depth of abscess Exam Vital Signs Temp Pulse Resp BP Pulse Ox O2 Del Method O2 Flow Rate 97.6 F 83 20 116/75 95 Nasal Cannula 3 03/13/25 12:00 03/13/25 14:18 03/13/25 12:00 03/13/25 14:18 03/13/25 12:00 03/13/25 12:00 03/13/25 12:00 Constitutional Constitutional: no acute distress Routine Respiratory Exam Respiratory: Present no resp distress Routine Extremities Exam Comments: right thigh indurated and tender, minimal erythema, no drainage or bleeding Results Results: Laboratory Laboratory results: results reviewed Results: Imaging Imaging narrative: CT images and report reviewed Assessment & Plan Plan 89M with MDS, chronic systolic CHF, CAD s/p CABG, CKD, hypothyroidism and recent admission for neuropenic fevers admitted with R thigh abscess s/p I&D 03/08, with unchanged abscess on CT repeated on POD 3 requiring a repeat attempt OR for repeat I&D of R thigh abscess this afternoon PROCEDURES: Procedures Incision and drainage of right thigh abscess
--- NOTE | 2025-03-13 16:23 | PC.SS ---
Rounding note: patient is pending surgery with Dr. Austin.
--- NOTE | 2025-03-13 16:26 | PC.NURSE ---
PATIENTS FAMILY EDUCATED ON REVERSE PRECAUTIONS AND NEED TO WEAR A MASK TO PROTECT PATIENT FROM INFECTION. FAMILY VERBALIZE UNDERSTANDING.
--- NOTE | 2025-03-13 16:26 | PC.NURSE ---
PATIENT PICKED UP BY OR NURSE AT 1626, TRANSFER VIA GURNEY, PT WEARING SURGICAL MASK, ACCOMPANIED PT TO SIGN CONSENT.
--- NOTE | 2025-03-13 17:22 | PD.SUROPNT ---
Date of Procedure 03/13/25 Pre Op Diagnosis Right thigh abscess Post Op Diagnosis Same Procedure Incision and drainage of right thigh abscess Findings Intramuscular pus approximately 30 cc Procedure Description Patient had undergone attempted incision and drainage on 03/08, with improvement of erythema and cultures growing MRSA, however he continued to have induration and tenderness, and repeat CT on 03/11 showed essentially no change in the abscess. There was some consideration of percutaneous drainage however radiology recommended repeating open drainage. I explained to patient and family and they agreed to proceed. Patient was brought to the operating room and MAC anesthesia was induced. He was placed in left lateral decubitus position with his right knee bent for exposure and was prepped and draped in usual sterile fashion. After timeout the existing longitudinal incision of the right posterior medial thigh was extended superiorly using a #15 blade. The muscle was aspirated with an 18-gauge needle and there was a small amount of pus return. I then used a hemostat to bluntly dissect the muscle and there was return of pus after doing this, approximately 30 cc in total. The abscess cavity was irrigated with Betadine and saline and then packed with 1 inch iodoform packing. There was minimal oozing at the skin edge which was controlled with electrocautery. The wound bed was packed with gauze and covered with gauze, abdominal pad and Kerlix roll. Patient was returned to supine position and brought to PACU in stable condition Pathology / specimen None Estimated Blood Loss 10 Surgeon Palma Austin MD Surgical Staff Operation Date: 03/13/25 14:00 <No data on this case meets the specified criteria>
--- NOTE | 2025-03-13 17:24 | SUR.PHASEI ---
pt received from OR in recovery bay 2. pt asleep but responds to voice, breathing unlabored on 8l oxymask. v/s stable. pt dressing to right lower extremity cdi. report received from Dr. Irene and Anai EUGENE.
--- NOTE | 2025-03-13 18:00 | SUR.PHASEI ---
pt asleep but responds to voice, breathing unlabored on 2 nc. v/s stable. pt dressing to right lower extremity cdi. report called to Alana EUGENE. pt will be transferred to room at this time.
--- NOTE | 2025-03-13 18:28 | PC.NURSE ---
DR. BRISENO AT BEDSIDE BS 89, PT LETHARGIC AFTER PROCEDURE, ONCE HE IS ALERT TO GIVE CARBS. NO NEW ORDERS AT THIS TIME.
[2025-03-14] VITALS (12 sets, daily range): BP systolic 106–118; BP diastolic 70–76; PULSE 87–102; RESP 13–26; TEMP 36.1–36.8; O2SAT 93–100; BMI 22.8
[2025-03-14] MEDS: MIDODRINE 5 MG TABLET 10 MG PO ×2 (05:54→21:02)
[2025-03-14] MEDS: LEVOTHYROXINE SODIUM 25 MCG TABLET 50 MCG PO (05:54)
[2025-03-14] MEDS: PIPER/TAZO 3.375 GM PREMIX 3.375 GM/50 ML BAG IV (05:59)
[2025-03-14 06:08] LABS: Basophils # (Auto) 0.0 Thou/mm3 (0.0-0.2); Basophils % (Auto) 3 % (0-2.5); Eosinophils # (Auto) 0.0 Thou/mm3 (0.0-0.5); Eosinophils % (Auto) 3 % (0-10); Hematocrit 25.1 % (41.0-53.0); Immature Granulocytes Auto 0.00 Thou/mm3 (0.00-0.00); Lymphocytes # (Auto) 0.5 Thou/mm3 (1.0-4.8); Lymphocytes % (Auto) 62 % (10-50); Mean Corpuscular HGB Conc 33.1 g/dl (31.0-37.0); Mean Corpuscular Hemoglobin 28.3 pg (25.0-35.0); Mean Corpuscular Volume 86 fL (80-100); Monocytes # (Auto) 0.1 Thou/mm3 (0.0-0.8); Monocytes % (Auto) 8 % (0-12); Neutrophils # (Auto) 0.2 Thou/mm3 (1.8-7.7); Neutrophils % (Auto) 25 % (37-80); Nucleated Red Blood Cell # 0.00 Thou/mm3 (0.00-0.00); Nucleated Red Blood Cell % 0 /100 WBC (0); RDW Standard Deviation 52.6 fL (35.1-43.9); Red Blood Count 2.93 Miln/mm3 (4.50-5.90)
[2025-03-14 06:22] LABS: Hemoglobin 8.3 g/dL (13.5-16.0); Platelet Count 40 Thou/mm3 (140-440); White Blood Count 0.8 Thou/mm3 (3.8-10.6)
[2025-03-14 06:47] LABS: Alanine Aminotransferase 11 U/L (10-49); Albumin, Serum 2.8 gm/dL (3.4-4.8); Albumin/Globulin Ratio 0.5 (1.2-2.2); Alkaline Phosphatase 67 U/L (46-116); Anion Gap 13 (7-16); Aspartate Amino Transferase 14 U/L (0-34); BUN/Creatinine Ratio 27 Ratio (12-20); Bilirubin,Total 0.9 mg/dL (0.3-1.2); Blood Urea Nitrogen 53 mg/dL (9-23); Calcium 9.1 mg/dL (8.3-10.6); Calcium (Corrected) 10.1 mg/dL (8.5-10.1); Carbon Dioxide 18.9 mMol/L (20.0-31.0); Chloride 110 mMol/L (98-107); Creatinine (Component) 2.0 mg/dL (0.6-1.3); Estimated Creatinine Clearance 23.5 mL/min (>60); Globulin 5.3 gm/dL (2.3-3.5); Glucose 95 mg/dL (74-106); Magnesium 1.9 mg/dL (1.6-2.6); Osmolality,Calculated 297 (275-295); Phosphorous 4.9 mg/dL (2.4-5.1); Potassium 5.4 mMol/L (3.4-5.1); Sodium 142 mMol/L (136-145); Total Protein 8.1 gm/dL (5.7-8.2); eGFR 32 See Note
[2025-03-14 07:36] LABS: Slide Review Platelets confirmed
--- NOTE | 2025-03-14 08:03 | ESPR_ITS ---
<Statement entered by Paxton Gilliam MD - 03/14/25 15:12> Patient seen and examined at bedside. I discussed and supervised with the consultant intern physician who took care of this patient. I personally saw and examined the patient. I agree with most of the assessment and plan. Patient noted to be mildly disoriented this morning. Foul smelling urine. Had abscess drained by Dr. Austin yesterday, pain following procedure. Concern for delirium, possible infection. Blood and urine cultures reordered, pending. Added low dose dilauded for pain control. Plan of care discussed with attending Dr. Patel. Paxton Gilliam MD PGY-2 Documentation for date of: 03/14/25 Subjective Subjective Interval history: No overnight events. Evaluated at bedside. 30cc of pus removed from right medial thigh by Dr. Austin yesterday. Surgical incision intact, clean, with slight serosanguineous fluid draining. Pt noted to be more confused per nursing staff and family at bedside, likely due to delirium or possible infection. Pending urine and blood cultures. Exam Vital Signs Temp Pulse Resp BP Pulse Ox O2 Del Method O2 Flow Rate 96.9 F 87 22 H 116/76 97 Nasal Cannula 2 03/14/25 04:00 03/14/25 05:54 03/14/25 04:00 03/14/25 05:54 03/14/25 04:00 03/14/25 04:00 03/14/25 04:00 Narrative Exam GENERAL APPEARANCE: Elderly frail-appearing male with occasional stutter speech in no acute distress. Sitting upright in bed with glasses. Delirious, alert, but not oriented. Not in acute distress. HEENT: NC, AT. Dry mucous membrane. EOMI, clear conjunctiva, oropharynx clear. NECK: No stiffness or restricted ROM. HEART: Regular rate and regular rhythm with [employer]-D, normal S1/S2, no m/r/g LUNGS: CTAB, moving air well. No crackles or wheezes are heard. ABDOMEN: Soft, nontender, nondistended with good bowel sounds heard. , condom cath in place BACK: No CVAT, no obvious deformity. EXTREMITIES: upper extremity tremors noted to be less than prior NEUROLOGICAL: Grossly nonfocal. Alert and oriented, moving all 4 extremities. Patient has action tremor no resting tremor noted. CN not formally tested but appear grossly intact. Stuttering with speech occasionally Skin: Right medial thigh surgical incision site intact, clean, with slight serosanguineous fluid draining. Psych: Stuttering speech (much improved from yesterday) Objective Labs 03/15/25 04:54 03/15/25 04:54 Labs: Laboratory Results - last 24 hr 03/13/25 03/14/25 05:44 05:00 WBC 0.6 L* 0.8 L* RBC 2.81 L 2.93 L Hgb 8.0 L 8.3 L Hct 24.6 L 25.1 L MCV 88 86 MCH 28.5 28.3 MCHC 32.5 33.1 RDW Std Deviation 53.5 H 52.6 H Plt Count 48 L D 40 L Neut % (Auto) 17 L 25 L Lymph % (Auto) 62 H 62 H Hand % (Auto) 5 8 Eos % (Auto) 2 3 Baso % (Auto) 3 H 3 H Neut # (Auto) 0.1 L 0.2 L Lymph # (Auto) 0.4 L 0.5 L Hand # (Auto) 0.0 0.1 Eos # (Auto) 0.0 0.0 Baso # (Auto) 0.0 0.0 Immature Gran # (Auto) 0.07 H 0.00 Absolute Nucleated RBC 0.00 0.00 Immature Gran % 11 H 0 Nucleated RBC % 0 0 Sodium 142 Potassium 5.4 H Chloride 110 H Carbon Dioxide 18.9 L Anion Gap 13 BUN 53 H Creatinine 2.0 H Estim Creat Clear Calc 23.5 L eGFR 32 L BUN/Creatinine Ratio 27 H Glucose 95 Calculated Osmolality 297 H Calcium 9.1 Corrected Calcium 10.1 Phosphorus 4.9 Magnesium 1.9 Total Bilirubin 0.9 AST 14 ALT 11 Alkaline Phosphatase 67 Total Protein 8.1 Albumin 2.8 L Globulin 5.3 H Albumin/Globulin Ratio 0.5 L Misc Test Result Platelets confirmed Platelets confirmed Quality Measures Quality Measures VTE prophylaxis (SCDs) Advance care planning discussed with:: patient Assessment & Plan Assessment Current Active Medications: Generic Name Dose Route Start Last Admin Trade Name Freq PRN Reason Stop Dose Admin Acetaminophen 650 mg 03/06/25 21:49 Acetaminophen 325 Mg Tablet PO 04/05/25 21:48 Q6H PRN Fever > 100.3 or pain Protocol Buspirone HCl 5 mg 03/09/25 17:00 03/14/25 05:54 Buspirone Hcl 5 Mg Tablet PO 04/08/25 16:59 5 mg TID PRASANTH Administration Carvedilol 3.125 mg 03/07/25 09:00 03/13/25 21:31 Carvedilol 3.125 Mg Tablet PO 04/06/25 08:59 3.125 mg BID PRASANTH Administration Citric Acid/Sodium Citrate 30 ml 03/13/25 21:00 03/13/25 21:44 Citric Acid/Sodium Citr 15 Ml Udc (Bicitra) PO 04/12/25 20:59 Not Given BID PRASANTH Piperacillin/Tazobactam/Dextrose 3.375 gm in 50 mls @ 12.5 mls/hr 03/09/25 22:00 03/14/25 05:59 Zosyn IV 03/16/25 21:59 12.5 mls/hr Q8HR PRASANTH Administration Protocol Doxycycline Hyclate 100 mg/ 100 mls @ 100 mls/hr 03/09/25 21:00 03/13/25 21:35 Sodium Chloride IV 03/16/25 20:59 100 mls/hr BID PRAASNTH Administration Levothyroxine Sodium 50 mcg 03/10/25 06:00 03/14/25 05:54 Levothyroxine Sodium 25 Mcg Tablet PO 04/09/25 05:59 50 mcg ACBR PRASANTH Administration Midodrine 10 mg 03/07/25 06:00 03/14/25 05:54 Midodrine 5 Mg Tablet PO 04/06/25 05:59 10 mg TID PRASANTH Administration Ondansetron HCl 4 mg 03/06/25 21:54 Ondansetron Inj 2 Mg/Ml Inj 2 Ml IVP 04/05/25 21:53 Q6H PRN NAUSEA OR VOMITING Protocol Pantoprazole Sodium 20 mg 03/10/25 09:00 03/13/25 10:02 Pantoprazole 20 Mg Tablet PO 04/09/25 08:59 20 mg QDAY PRASANTH Administration Protocol Sennosides 2 tab 03/13/25 09:00 03/13/25 10:02 Senna Tablet PO 04/12/25 08:59 2 tab QDAY PRASANTH Administration Protocol Tamsulosin HCl 0.4 mg 03/07/25 09:00 03/13/25 10:02 Tamsulosin Hcl 0.4 Mg Capsule PO 04/06/25 08:59 0.4 mg DAILY [facility] Administration Plan 89-year-old male with past medical history of HFrEF (LVEF 10 to 15%), CAD, s/p CABG x 4, hypertension, CKD stage IV, myelodysplastic syndrome on chemo and transfusions, hypothyroidism who presents to the ED with right lower extremity posteromedial abscess, status post I&D with surgery wound cultures positive for MRSA, continue on antibiotics, the lower extremity shows abscess remains in the medial posterior thigh 5 x 3 x 10 cm, per Dr. Epperson abscess is too big to drain, recommend surgery therefore plan for surgery with Dr. Austin. On 03/13, I&D was performed by Dr. Austin, 30cc of pus removed from right thigh. Incision site clear and intact. Pt found to be more confused this morning by nursing staff and at bedside, likely due to delirium or infection. Zosyn stopped today since pt has been on it for a week for urinary pseudomona treatment, and due to concern for nephrotoxicity. Will re-evaluate pending urine and blood culture. #Right lower extremity posterior medial abscess status post surgical I&D day 1 Patient initially developed right thigh fungal infection on 629 during previous hospitalization. Started on clotrimazole topical. Patient reports that he continued to apply the clotrimazole after discharge. Patient reports that he has noticed progressive swelling, redness, pain in this area. Physical exam showed nonfluctuant erythematous and warm area along the posterior medial aspect of the thigh. Right lower extremity CT without contrast showed low-density mass in the posteromedial thigh in adductor christiaen muscle measuring 4.7 x 3.8 x 10.5 - Patient given Rocephin x 1 and 1 L NS in ED then started on vancomycin and pip-tazo -Patient underwent I&D by general surgeon, Dr. Arango without complication. 20 cc pus was removed. -Vancomycin was discontinued. ? Wound cultures positive for MRSA ?Blood cultures negative x 48 hour ?ANC count 0.1 ?DC cefepime, Levaquin and Flagyl -03/11 CT lower extremity right Abscess remains in the medial posterior thigh, 5.0 x 2.9 x 10.2 cm Plan ?30cc pus drained by Dr. Arango for remnant abscess in the right medial posterior thigh. Surgical site intact, clean, with slight serosanguinous fluid draining. Tolerable pain. ?Filgrastim 300 mcg given per oncology recs ?Changed to Zosyn 2.25 g and doxycycline 100 IV twice daily, plan for discharge on Bactrim. - Continue doxycycline for MRSA coverage ?Urine culture grew Pseudomonas sensitive (Zosyn 1-week treatment completed) - Follow-up with wound cultures - Postop pain management #Metabolic encephalopathy vs Delirium Pt found more confused at bedside this morning per and nursing staff, likely due to delirium or possibly infection - Follow up on daily labs - Avoid excessive pain medications - Have regular day and night schedule - Include family members or familiar people in patient care - Pending urine and blood cultures # Hyperkalemia Potassium: 5.4 today ? Kayexalate x 1 ? Potassium was 4.7, increased to 5.4 #NAGMA -Possible diarrhoea -Patient had passage of loose stools in previous days -Continue Bicitra BID - Follow up on daily labs #Right lower extremity swelling concerning for DVT-R/0 On exam right ankle and foot were swollen compared to left Dx -Right lower extremity DVT ultrasound: No DVT #Loose bowel movements x 4-resolved Patient has reported 4 loose bowel movements yesterday, consider loose stools secondary to filgastram side effects versus antibiotic associated diarrhea given patient continues on Zosyn for right medial thigh abscess No loose stools today -Consider C. difficile PCR if loose bowel movements continue -CTM BMs #Hyoptension -In setting of HFrEF ef 10-15% and MDS - Patient blood pressure is around 97/54 Plan: -Continue midodrine 10 mg 3 times daily -IV fluids were given initially during admission -IV albumin 25 g x 1 #UCx Psuedomonal - treatment completed - Zosyn stopped today 03/14/25. Pt has been on Zosyn for 1 week for Urine Pseudomona treatment. # Pancytopenia # Myelodysplastic syndrome Initial labs: WBC 0.8, hemoglobin 9.1, hematocrit 26.7, platelet 35. MCV within normal limits Patient was on Azocitidine for myelodysplastic syndrome and requires frequent transfusions and Filgastrim Family informed that chemotherapy was held last week. Family has been thinking of hospice for the patient. ANC count 100, 03/09 - 1 unit of platelet was given before I&D - 3 additional units of platelets were given prior to second I&D procedure with Dr. Arango platelet levels at 48 Plan: -Follow-up CBC in a.m. 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 -Recommended to consider giving filgrastim and transfuse blood and give broad- spectrum antibiotics as necessary per oncology recs - Continue to monitor with CBC daily - Hold any anticoagulation due to low platelet count. DVT prophylaxis with SCDs only - Transfuse if hemoglobin < 7 - neutropenic precautions # ESTELLA on CKD stage IV -Possible cardiorenal syndrome Initial labs: BUN 65, creatinine 2.1 Patient's baseline creatinine usually 1.5-1.8 Given 1 L normal saline in ED Patient has a history of HFrEF, important not to overload patient with IVF Plan: - Continue to monitor with CMP daily - Avoid nephrotoxic agents - IVF: LR at 60 mL/h x 1 L - Albumin 25 g given x 1 #Speech Stuttering #Essential tremors #? 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 ? Ammonia level less than 10, B12 1762, folate within normal limits. TSH 10.93. ?Pending thiamine and free T4 1.30 Plan: -Neurology recommended with buspirone 5 mg 3 times daily for anxiety -Speech therapy recommended Chopped food to optimize independence with meals. -Consulted neurology for further recommendations ?Neurology is following the case. Neurology considerations are likely related to stress-induced tremor and stuter/psychogenic, medication induced parkinsonism, cerebellar CVA, vitamin deficiency, electrolyte abnormality ?Adjusted levothyroxine from 25 mcg to 50 mcg IV daily ? Follow-up with thyroid functions in 4 to 6 weeks #Subclinical hypothyroidism - Patient is already on levothyroxine 25 mcg - TSH 10.93, free T4 1.30 Plan: -Increase of dose of levothyroxine to 50 mcg # HFrEF, EF 10 to 15% # Hx Hypertension TTE 02/16/25: LVEF 10 to 15% Home meds (per 02/24/25 discharge summary): Carvedilol 3.215 mg PO BID, Entresto 0.5 mg PO BID, Midodrine 10 mg PO TID BP in ED: sBP 93-107 / dBP 52-57 Initial labs: BNP elevated 2003 Initial chest x-ray showed vascular congestion. Right upper extremity Doppler negative for DVT Plan: - Resume home Coreg - Continue midodrine. Continue to monitor on telemetry, can hold Coreg if hypotensive (BP < 90/70) - Hold Entresto (2/2 ESTELLA) - Fluid restrictions - 1.5 L / day - Daily weights - Strict I&Os - Careful hydration #Elevated Vitamin B12 - Vitamin B12 1762 Plan: -Outpatient follow-up # Prolonged QTc Initial EKG showed QTc 531 Plan: - Continue to monitor on telemetry - Avoid QTc prolonging agents - replete electrolytes as necessary # Left buttock erythema Plan: - Frequent turns, continue to monitor - Wound care # Benign prostatic hypertrophy Plan - Continue home Tamsulosin 0.4 mg PO daily #Left hand itchiness Patient reported that after IV placement on left hand that he was experiencing itchiness, consider dermatitis to adhesive used for IV ? Topical Benadryl cream as needed to affected areas Dispo: Plan for home with home health patient family requesting help with hospital bed, 30cc pus drained by Dr. Arango for residual abscess in right medial thigh. DVT prophylaxis: SCDs GI prophylaxis: Protonix 20 Diet: Cardiac Diet Lines: Peripheral IV, condom catheter Code status: Full code Case discussed with my senior resident Dr. Gilliam Case discussed with my attending Dr. Jorge Turner DO PGY 1 Attending Provider Attestation/Addendum Kamilla Sommers DO, attest that I was physically present for the kulkarni portions of the service and evaluated the patient with the resident and I reviewed and discussed the case with the resident and agree with the resident's findings and plans of care as documented above Patient seen and evaluated this a.m. Patient underwent of right thigh abscess during which about 30 cc of purulent drainage was removed. Patient is much more confused this morning and has been refusing medications. Patient is not answering questions appropriately. He complains of pain in his bilateral lower extremities. Patient does not appear to be well rested. Will add Dilaudid for pain management. Suspect that patient did not rest last night resulting in delirium this morning. Renal function is uptrending, encourage patient to drink some more fluids, but he is not wanting any p.o. intake today. Will jarquin cultures patient appears to be shivering and per nursing urine has foul odor. Concern for possible sepsis resulting in confusion/metabolic encephalopathy.
[2025-03-14] MEDS: ALBUTEROL RT 2.5 MG/0.5 ML NEBU INH (08:28)
[2025-03-14] MEDS: DOXYCYCLINE INJ 100 MG in SODIUM CHLORIDE 0.9% (POP) 100 ML IV ×2 (08:46→21:02)
[2025-03-14] MEDS: SOD POLYSTYRENE SULFON SUSP 15 GM/60 ML BTL PO (08:57)
[2025-03-14] MEDS: INSULIN HUM REGULAR 1 UNIT/0.01 ML (PER UNIT) 5 UNIT IV (09:05)
[2025-03-14] MEDS: DEXTROSE 50%-WATER INJ 50 ML SYRINGE IV (09:06)
[2025-03-14] MEDS: HYDROmorphone INJ 2 MG/ML VIAL 0.5 MG IVP (12:19)
[2025-03-14] MEDS: CITRIC ACID/SODIUM CITR 15 ML UDC (BICITRA) 30 ML PO (21:02)
--- NOTE | 2025-03-14 23:51 | VVPN_ITS ---
Telemedicine visit statement This visit was conducted with the use of phone was obtained on 03/14/25 at 2351. Documentation for date of: 03/14/25 Subjective Subjective Interval history: Patient is in telemetry. Intermittent confusion especially in the evenings noted. No tremors or other involuntary movements anymore. Virtual exam Vital Signs Temp Pulse Resp BP Pulse Ox O2 Del Method O2 Flow Rate 97.0 F 96 19 114/76 95 Nasal Cannula 3 03/14/25 20:00 03/14/25 21:02 03/14/25 20:00 03/14/25 21:02 03/14/25 20:00 03/14/25 20:00 03/14/25 20:00 Objective Labs 03/15/25 04:54 03/15/25 04:54 Labs: Laboratory Results - last 24 hr 03/14/25 05:00 WBC 0.8 L* RBC 2.93 L Hgb 8.3 L Hct 25.1 L MCV 86 MCH 28.3 MCHC 33.1 RDW Std Deviation 52.6 H Plt Count 40 L Neut % (Auto) 25 L Lymph % (Auto) 62 H [place] % (Auto) 8 Eos % (Auto) 3 Baso % (Auto) 3 H Neut # (Auto) 0.2 L Lymph # (Auto) 0.5 L [place] # (Auto) 0.1 Eos # (Auto) 0.0 Baso # (Auto) 0.0 Immature Gran # (Auto) 0.00 Absolute Nucleated RBC 0.00 Immature Gran % 0 Nucleated RBC % 0 Sodium 142 Potassium 5.4 H Chloride 110 H Carbon Dioxide 18.9 L Anion Gap 13 BUN 53 H Creatinine 2.0 H Estim Creat Clear Calc 23.5 L eGFR 32 L BUN/Creatinine Ratio 27 H Glucose 95 Calculated Osmolality 297 H Calcium 9.1 Corrected Calcium 10.1 Phosphorus 4.9 Magnesium 1.9 Total Bilirubin 0.9 AST 14 ALT 11 Alkaline Phosphatase 67 Total Protein 8.1 Albumin 2.8 L Globulin 5.3 H Albumin/Globulin Ratio 0.5 L Misc Test Result Platelets confirmed Assessment & Plan Problem List (1) Altered mental status: Status: Acute Assessment and plan: We could increase the dose of the buspirone to 7.5 mg 3 times a day And melatonin 5 to 10 mg at night as needed. (2) Abscess of right thigh: Status: Acute Assessment and plan: Status post incision and drainage, periodic dressing as per primary team (3) Pancytopenia: Status: Chronic Assessment and plan: Stable from myelodysplastic syndrome
[2025-03-15] VITALS (17 sets, daily range): BP systolic 101–119; BP diastolic 65–79; PULSE 74–99; RESP 14–37; TEMP 36.2–36.9; O2SAT 93–100
[2025-03-15] MEDS: LEVOTHYROXINE SODIUM 25 MCG TABLET 50 MCG PO (05:09)
[2025-03-15] MEDS: MIDODRINE 5 MG TABLET 10 MG PO ×3 (05:09→21:11)
[2025-03-15 05:18] LABS: Basophils # (Auto) 0.0 Thou/mm3 (0.0-0.2); Basophils % (Auto) 1 % (0-2.5); Eosinophils # (Auto) 0.0 Thou/mm3 (0.0-0.5); Eosinophils % (Auto) 1 % (0-10); Hematocrit 22.5 % (41.0-53.0); Immature Granulocytes Auto 0.01 Thou/mm3 (0.00-0.00); Lymphocytes # (Auto) 0.4 Thou/mm3 (1.0-4.8); Lymphocytes % (Auto) 61 % (10-50); Mean Corpuscular HGB Conc 32.9 g/dl (31.0-37.0); Mean Corpuscular Hemoglobin 27.7 pg (25.0-35.0); Mean Corpuscular Volume 84 fL (80-100); Monocytes # (Auto) 0.1 Thou/mm3 (0.0-0.8); Monocytes % (Auto) 10 % (0-12); Neutrophils # (Auto) 0.2 Thou/mm3 (1.8-7.7); Neutrophils % (Auto) 24 % (37-80); Nucleated Red Blood Cell # 0.00 Thou/mm3 (0.00-0.00); Nucleated Red Blood Cell % 0 /100 WBC (0); RDW Standard Deviation 50.2 fL (35.1-43.9); Red Blood Count 2.67 Miln/mm3 (4.50-5.90)
[2025-03-15 05:46] LABS: Hemoglobin 7.4 g/dL (13.5-16.0); Platelet Count 35 Thou/mm3 (140-440); Slide Review Platelets confirmed; White Blood Count 0.7 Thou/mm3 (3.8-10.6)
[2025-03-15 05:59] LABS: Alanine Aminotransferase 53 U/L (10-49); Albumin, Serum 2.7 gm/dL (3.4-4.8); Albumin/Globulin Ratio 0.5 (1.2-2.2); Alkaline Phosphatase 79 U/L (46-116); Anion Gap 11 (7-16); Aspartate Amino Transferase 58 U/L (0-34); BUN/Creatinine Ratio 28 Ratio (12-20); Bilirubin,Total 0.9 mg/dL (0.3-1.2); Blood Urea Nitrogen 61 mg/dL (9-23); Calcium 8.9 mg/dL (8.3-10.6); Calcium (Corrected) 9.9 mg/dL (8.5-10.1); Carbon Dioxide 19.2 mMol/L (20.0-31.0); Chloride 114 mMol/L (98-107); Creatinine (Component) 2.2 mg/dL (0.6-1.3); Estimated Creatinine Clearance 21.3 mL/min (>60); Globulin 5.0 gm/dL (2.3-3.5); Glucose 133 mg/dL (74-106); Magnesium 1.9 mg/dL (1.6-2.6); Osmolality,Calculated 306 (275-295); Phosphorous 5.2 mg/dL (2.4-5.1); Potassium 4.8 mMol/L (3.4-5.1); Sodium 144 mMol/L (136-145); Total Protein 7.7 gm/dL (5.7-8.2); eGFR 28 See Note
--- NOTE | 2025-03-15 07:07 | ESPR_ITS ---
<Statement entered by Devonte Balbuena MD - 03/15/25 14:26> Patient was seen and examined at the bedside. Patient was slightly better than yesterday in terms of his delirium. He was feeling weak and had excruciating pain in his leg. Pain medication was given which is considered to be most likely attributing factor for patient's delirium. Hemoglobin dropped to 7.4 therefore PRBC will be transfused today. Kidney functions remain around 2.2. Small amount of fluids given. Blood cultures and urine cultures pending. Will continue with doxycycline. Buspirone was increased per neurology recommendations to 7.5 mg 3 times daily. Added melatonin for sleep at night. Continue delirium precautions. Sevelamer given for hyperphosphatemia. Will continue with doxycycline. All labs and orders were reviewed. I discussed and supervised with the information technology internship physician who took care of this patient. I personally saw and examined the patient. I agree with most of the assessment and plan. Disclaimer: Despite multiple revisions, due to the dictation software being used, the document bellow may not be free of grammatical errors including phonetic/typographic errors. However, this does not deter from our commitment to providing health care in the patient's best interest in mind. Plan of care discussed with attending Physician Dr. Jorge Balbuena MD PGY-3 Documentation for date of: 03/15/25 Subjective Subjective Interval history: No acute events overnight pt reports feeling confused. Hgb 7.4 from 8, will transfuse 1 unit PRBC, f/u post transfusion H/H Exam Vital Signs Temp Pulse Resp BP Pulse Ox O2 Del Method O2 Flow Rate 98.2 F 94 19 108/79 98 Nasal Cannula 2 03/15/25 04:00 03/15/25 05:09 03/15/25 04:00 03/15/25 05:09 03/15/25 04:00 03/15/25 04:00 03/15/25 04:00 Narrative Exam GENERAL APPEARANCE: Elderly frail-appearing male with occasional stutter speech in no acute distress. Sitting upright in bed with glasses. Delirious, alert and oriented to person and place,not time. Not in acute distress. HEENT: NC, AT. Dry mucous membrane. EOMI, clear conjunctiva, oropharynx clear. NECK: No stiffness or restricted ROM. HEART: Regular rate and regular rhythm with SUPPORT SERVICES COORDINATOR-D, normal S1/S2, no m/r/g LUNGS: CTAB, moving air well. No crackles or wheezes are heard. ABDOMEN: Soft, nontender, nondistended with good bowel sounds heard. , condom cath in place, and diaper on top. BACK: No CVAT, no obvious deformity. EXTREMITIES: upper extremity tremors noted to be less than prior NEUROLOGICAL: Grossly nonfocal. Alert and oriented, moving all 4 extremities. Patient has action tremor no resting tremor noted. CN not formally tested but appear grossly intact. Stuttering with speech occasionally Skin: Right medial thigh surgical incision site intact, clean, dressing in place Psych: Stuttering speech (much improved from yesterday) Objective Labs 03/16/25 05:35 03/16/25 05:35 Labs: Laboratory Results - last 24 hr 03/14/25 03/15/25 05:00 04:54 WBC 0.7 L* RBC 2.67 L Hgb 7.4 L Hct 22.5 L MCV 84 MCH 27.7 MCHC 32.9 RDW Std Deviation 50.2 H Plt Count 35 L Neut % (Auto) 24 L Lymph % (Auto) 61 H Thomas % (Auto) 10 Eos % (Auto) 1 Baso % (Auto) 1 Neut # (Auto) 0.2 L Lymph # (Auto) 0.4 L Thomas # (Auto) 0.1 Eos # (Auto) 0.0 Baso # (Auto) 0.0 Immature Gran # (Auto) 0.01 H Absolute Nucleated RBC 0.00 Immature Gran % 1 H Nucleated RBC % 0 Sodium 144 Potassium 4.8 D Chloride 114 H Carbon Dioxide 19.2 L Anion Gap 11 BUN 61 H Creatinine 2.2 H Estim Creat Clear Calc 21.3 L eGFR 28 L BUN/Creatinine Ratio 28 H Glucose 133 H Calculated Osmolality 306 H Calcium 8.9 Corrected Calcium 9.9 Phosphorus 5.2 H Magnesium 1.9 Total Bilirubin 0.9 AST 58 H ALT 53 H Alkaline Phosphatase 79 Total Protein 7.7 Albumin 2.7 L Globulin 5.0 H Albumin/Globulin Ratio 0.5 L Misc Test Result Platelets confirmed Platelets confirmed Quality Measures Quality Measures VTE prophylaxis (SCDs) Advance care planning discussed with:: patient, spouse and child Assessment & Plan Assessment Current Active Medications: Generic Name Dose Route Start Last Admin Trade Name Freq PRN Reason Stop Dose Admin Acetaminophen 650 mg 03/06/25 21:49 Acetaminophen 325 Mg Tablet PO 04/05/25 21:48 Q6H PRN Fever > 100.3 or pain Protocol Buspirone HCl 5 mg 03/09/25 17:00 03/15/25 05:10 Buspirone Hcl 5 Mg Tablet PO 04/08/25 16:59 5 mg TID PRASANTH Administration Carvedilol 3.125 mg 03/07/25 09:00 03/14/25 21:01 Carvedilol 3.125 Mg Tablet PO 04/06/25 08:59 3.125 mg BID PRASANTH Administration Citric Acid/Sodium Citrate 30 ml 03/13/25 21:00 03/14/25 21:02 Citric Acid/Sodium Citr 15 Ml Udc (Bicitra) PO 04/12/25 20:59 30 ml BID PRASANTH Administration Hydromorphone HCl 0.5 mg 03/14/25 11:25 03/14/25 12:19 Hydromorphone Inj 2 Mg/Ml Vial IVP 03/19/25 11:24 0.5 mg Q4HR PRN Administration PAIN SCALE 4-10(Mod-Sev Doxycycline Hyclate 100 mg/ 100 mls @ 100 mls/hr 03/09/25 21:00 03/14/25 21:02 Sodium Chloride IV 03/16/25 20:59 100 mls/hr BID PRASANTH Administration Levothyroxine Sodium 50 mcg 03/10/25 06:00 03/15/25 05:09 Levothyroxine Sodium 25 Mcg Tablet PO 04/09/25 05:59 50 mcg ACBR PRASANTH Administration Midodrine 10 mg 03/07/25 06:00 03/15/25 05:09 Midodrine 5 Mg Tablet PO 04/06/25 05:59 10 mg TID PRASANTH Administration Ondansetron HCl 4 mg 03/06/25 21:54 Ondansetron Inj 2 Mg/Ml Inj 2 Ml IVP 04/05/25 21:53 Q6H PRN NAUSEA OR VOMITING Protocol Pantoprazole Sodium 20 mg 03/10/25 09:00 03/14/25 09:00 Pantoprazole 20 Mg Tablet PO 04/09/25 08:59 Not Given QDAY PRASANTH Protocol Sennosides 2 tab 03/13/25 09:00 03/14/25 09:01 Senna Tablet PO 04/12/25 08:59 Not Given QDAY [facility] Protocol Tamsulosin HCl 0.4 mg 03/07/25 09:00 03/14/25 09:01 Tamsulosin Hcl 0.4 Mg Capsule PO 04/06/25 08:59 Not Given DAILY PRASANTH Plan 89-year-old male with past medical history of HFrEF (LVEF 10 to 15%), CAD, s/p CABG x 4, hypertension, CKD stage IV, myelodysplastic syndrome on chemo and transfusions, hypothyroidism who presents to the ED with right lower extremity posteromedial abscess, status post I&D with surgery wound cultures positive for MRSA, continue on antibiotics, the lower extremity shows abscess remains in the medial posterior thigh 5 x 3 x 10 cm, per Dr. Epperson abscess is too big to drain, recommend surgery therefore plan for surgery with Dr. Austin. On 03/13, I&D was performed by Dr. Austin, 30cc of pus removed from right thigh. Incision site clear and intact. pt still mildy delerius, oriented to place and self. pending blood cultures and urine cultures. transfuse 1 unit PRBC for hgb 7.4 (goal>8 given CAD w CABG). follow up post tranfusion h/h. increased buspirone to 7.5mg TID and added melatonin 10 mg qhs per neuro recs. # Pancytopenia # Myelodysplastic syndrome Initial labs: WBC 0.8, hemoglobin 9.1, hematocrit 26.7, platelet 35. MCV within normal limits Patient was on Azocitidine for myelodysplastic syndrome and requires frequent transfusions and Filgastrim Family informed that chemotherapy was held last week. Family has been thinking of hospice for the patient. ANC count 100, 03/09 - 1 unit of platelet was given before I&D - 3 additional units of platelets were given prior to second I&D procedure with Dr. Arango platelet levels at 48 Plan: -Follow-up CBC in a.m. 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 -Recommended to consider giving filgrastim and transfuse blood and give broad- spectrum antibiotics as necessary per oncology recs - Continue to monitor with CBC daily - Hold any anticoagulation due to low platelet count. DVT prophylaxis with SCDs only - Transfuse if hemoglobin < 7 - neutropenic precautions #Right lower extremity posterior medial abscess status post surgical I&D day 2 Patient initially developed right thigh fungal infection on 629 during previous hospitalization. Started on clotrimazole topical. Patient reports that he continued to apply the clotrimazole after discharge. Patient reports that he has noticed progressive swelling, redness, pain in this area. Physical exam showed nonfluctuant erythematous and warm area along the posterior medial aspect of the thigh. Right lower extremity CT without contrast showed low-density mass in the posteromedial thigh in adductor christiane muscle measuring 4.7 x 3.8 x 10.5 -03/11 CT lower extremity right Abscess remains in the medial posterior thigh, 5.0 x 2.9 x 10.2 cm -wound cx + MRSA - some concern for possible psoas infxn. Straight leg raise is limited given pain from abscess. Plan ?30cc pus drained by Dr. Arango for remnant abscess in the right medial posterior thigh. Surgical site intact, clean, with slight serosanguinous fluid draining. Tolerable pain. ?Filgrastim 300 mcg given per oncology recs ?d/c to Zosyn 2.25 g - cont doxycycline 100 IV twice daily for MRSA coverage , plan for discharge on Bactrim. ?Urine culture grew Pseudomonas sensitive (Zosyn 1-week treatment completed) - Postop pain management: dilaudid 0.5 q4h prn , apap 650 q6h PRN # ESTELLA on CKD stage IV, Cr uptrending (Cr: 2.2) -Possible cardiorenal syndrome Initial labs: BUN 65, creatinine 2.1 Patient's baseline creatinine usually 1.5-1.8 Given 1 L normal saline in ED Patient has a history of HFrEF, important not to overload patient with IVF Plan: - Continue to monitor with CMP daily - Avoid nephrotoxic agents - IVF: 250 LR bolus at 60ml/hr - Albumin 25 g given x 1 #Metabolic encephalopathy vs Delirium Pt found more confused at bedside this morning per and nursing staff. Favor post op delirium, cont to treat pain appropriately and orient pt regularly. - Follow up on daily labs - Melatonin 5-10 mg QHS per neuro recs. - treat pain appropriately, see #RLE abscess above - Have regular day and night schedule - Include family members or familiar people in patient care - Pending urine and blood cultures # Hyperkalemia- resolved Potassium: 5.4 today ? Kayexalate x 1 ? Potassium was 4.7, increased to 5.4 #NAGMA -Possible diarrhoea -Patient had passage of loose stools in previous days -Continue Bicitra BID - Follow up on daily labs #Hyoptension -In setting of HFrEF ef 10-15% and MDS - Patient blood pressure is around 97/54 Plan: -Continue midodrine 10 mg 3 times daily -IV fluids were given initially during admission -IV albumin 25 g x 1 #UCx Psuedomonal - treatment completed - Zosyn stopped today 03/14/25. Pt has been on Zosyn for 1 week for Urine Pseudomona treatment. #Speech Stuttering #Essential tremors #? 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 ? Ammonia level less than 10, B12 1762, folate within normal limits. TSH 10.93. ?Pending thiamine and free T4 1.30 Plan: -Neurology recommended with buspirone increased from 5 mg to 7.5 3 times daily for anxiety -Speech therapy recommended Chopped food to optimize independence with meals. -Consulted neurology for further recommendations ?Neurology is following the case. Neurology considerations are likely related to stress-induced tremor and stuter/psychogenic, medication induced parkinsonism, cerebellar CVA, vitamin deficiency, electrolyte abnormality ?Adjusted levothyroxine from 25 mcg to 50 mcg IV daily ? Follow-up with thyroid functions in 4 to 6 weeks #Subclinical hypothyroidism - Patient is already on levothyroxine 25 mcg - TSH 10.93, free T4 1.30 Plan: -Increase of dose of levothyroxine to 50 mcg # HFrEF, EF 10 to 15% # Hx Hypertension TTE 02/16/25: LVEF 10 to 15% Home meds (per 02/24/25 discharge summary): Carvedilol 3.215 mg PO BID, Entresto 0.5 mg PO BID, Midodrine 10 mg PO TID BP in ED: sBP 93-107 / dBP 52-57 Initial labs: BNP elevated 2003 Initial chest x-ray showed vascular congestion. Right upper extremity Doppler negative for DVT Plan: - Resume home Coreg - Continue midodrine. Continue to monitor on telemetry, can hold Coreg if hypotensive (BP < 90/70) - Hold Entresto (2/2 ESTELLA) - Fluid restrictions - 1.5 L / day - Daily weights - Strict I&Os - Careful hydration #Elevated Vitamin B12 - Vitamin B12 1762 Plan: -Outpatient follow-up # Prolonged QTc Initial EKG showed QTc 531 Plan: - Continue to monitor on telemetry - Avoid QTc prolonging agents - replete electrolytes as necessary # Left buttock erythema Plan: - Frequent turns, continue to monitor - Wound care # Benign prostatic hypertrophy Plan - Continue home Tamsulosin 0.4 mg PO daily #Right lower extremity swelling concerning for DVT-R/0 On exam right ankle and foot were swollen compared to left Dx -Right lower extremity DVT ultrasound: No DVT #Loose bowel movements x 4-resolved Patient has reported 4 loose bowel movements yesterday, consider loose stools secondary to filgastram side effects versus antibiotic associated diarrhea given patient continues on Zosyn for right medial thigh abscess No loose stools today -Consider C. difficile PCR if loose bowel movements continue -CTM BMs #Left hand itchiness- Resolved Patient reported that after IV placement on left hand that he was experiencing itchiness, consider dermatitis to adhesive used for IV ? Topical Benadryl cream as needed to affected areas Dispo: Plan for home with home health patient family requesting help with hospital bed, 30cc pus drained by Dr. Arango for residual abscess in right medial thigh. DVT prophylaxis: SCDs GI prophylaxis: Protonix 20 Diet: Cardiac Diet Lines: Peripheral IV, condom catheter Code status: Full code Case discussed with my senior resident Dr. Balbuena Case discussed with my attending Dr. Jorge Hoang MD PGY-1 Attending Provider Attestation/Addendum Kamilla Sommers, DO, attest that I was physically present for the kulkarni portions of the service and evaluated the patient with the resident and I reviewed and discussed the case with the resident and agree with the resident's findings and plans of care as documented above Patient seen and eval this a.m. and daughter at bedside. They state that the patient continues to be confused, but slight improvement from yesterday. Patient is able to answer questions appropriately, but may be tangential at times. He is alert and oriented x 2 otherwise. Patient complains of pain from his right thigh and states that patient was able to get some rest after receiving pain medication. Will continue with pain control at this time. Will receive 1 unit of PRBCs today as goal hemoglobin for patient is 8 or greater due to history of CAD. Will monitor fluid status closely given low EF. Continue with wound care. Neurology recommends melatonin at night and increase in buspirone to 7.5 mg p.o. 3 times daily from 5 mg. Will have physical therapy work with patient as well.
[2025-03-15] MEDS: TAMSULOSIN HCL 0.4 MG CAPSULE PO (08:47)
[2025-03-15] MEDS: PANTOPRAZOLE 20 MG TABLET PO (08:47)
[2025-03-15] MEDS: DOXYCYCLINE INJ 100 MG in SODIUM CHLORIDE 0.9% (POP) 100 ML IV ×2 (08:47→20:23)
[2025-03-15] MEDS: SEVELAMER CARBONATE 800 MG TABLET PO (08:48)
[2025-03-15] MEDS: RINGERS LACTATED 1000 ML 1,000 ML 60 ML IV (08:52)
[2025-03-15] MEDS: Magnesium Sulfate 2 GM Ivpb 2 GM/50 ML BAG IV (09:57)
[2025-03-15] MEDS: CITRIC ACID/SODIUM CITR 15 ML UDC (BICITRA) 30 ML PO ×2 (10:14→21:14)
[2025-03-15 15:50] LABS: Hematocrit 27.0 % (41.0-53.0); Hemoglobin 9.4 g/dL (13.5-16.0)
[2025-03-15] MEDS: MELATONIN 3 MG TABLET 5 MG PO (21:15)
[2025-03-16] VITALS (13 sets, daily range): BP systolic 91–116; BP diastolic 61–76; PULSE 72–98; RESP 14–30; TEMP 36.1–36.6; O2SAT 93–99; BMI 12.0
[2025-03-16] MEDS: MIDODRINE 5 MG TABLET 10 MG PO ×3 (05:09→21:45)
[2025-03-16] MEDS: LEVOTHYROXINE SODIUM 25 MCG TABLET 50 MCG PO (05:09)
[2025-03-16 06:29] LABS: Basophils # (Auto) 0.0 Thou/mm3 (0.0-0.2); Basophils % (Auto) 3 % (0-2.5); Eosinophils # (Auto) 0.0 Thou/mm3 (0.0-0.5); Eosinophils % (Auto) 3 % (0-10); Hematocrit 31.0 % (41.0-53.0); Hemoglobin 10.1 g/dL (13.5-16.0); Immature Granulocytes Auto 0.03 Thou/mm3 (0.00-0.00); Lymphocytes # (Auto) 0.4 Thou/mm3 (1.0-4.8); Lymphocytes % (Auto) 64 % (10-50); Mean Corpuscular HGB Conc 32.6 g/dl (31.0-37.0); Mean Corpuscular Hemoglobin 28.9 pg (25.0-35.0); Mean Corpuscular Volume 89 fL (80-100); Monocytes # (Auto) 0.0 Thou/mm3 (0.0-0.8); Monocytes % (Auto) 5 % (0-12); Neutrophils # (Auto) 0.1 Thou/mm3 (1.8-7.7); Neutrophils % (Auto) 20 % (37-80); Nucleated Red Blood Cell # 0.00 Thou/mm3 (0.00-0.00); Nucleated Red Blood Cell % 0 /100 WBC (0); RDW Standard Deviation 53.6 fL (35.1-43.9); Red Blood Count 3.49 Miln/mm3 (4.50-5.90)
[2025-03-16 06:36] LABS: White Blood Count 0.6 Thou/mm3 (3.8-10.6)
[2025-03-16 06:37] LABS: Platelet Count 25 Thou/mm3 (140-440)
[2025-03-16 06:38] LABS: Slide Review Platelets confirmed
[2025-03-16 06:50] LABS: Alanine Aminotransferase 58 U/L (10-49); Albumin, Serum 2.8 gm/dL (3.4-4.8); Albumin/Globulin Ratio 0.5 (1.2-2.2); Alkaline Phosphatase 85 U/L (46-116); Anion Gap 12 (7-16); Aspartate Amino Transferase 33 U/L (0-34); BUN/Creatinine Ratio 27 Ratio (12-20); Bilirubin,Total 0.9 mg/dL (0.3-1.2); Blood Urea Nitrogen 57 mg/dL (9-23); Calcium 9.3 mg/dL (8.3-10.6); Calcium (Corrected) 10.3 mg/dL (8.5-10.1); Carbon Dioxide 19.7 mMol/L (20.0-31.0); Chloride 111 mMol/L (98-107); Creatinine (Component) 2.1 mg/dL (0.6-1.3); Estimated Creatinine Clearance 22.4 mL/min (>60); Globulin 5.4 gm/dL (2.3-3.5); Glucose 129 mg/dL (74-106); Magnesium 2.1 mg/dL (1.6-2.6); Osmolality,Calculated 302 (275-295); Phosphorous 4.3 mg/dL (2.4-5.1); Potassium 4.2 mMol/L (3.4-5.1); Sodium 143 mMol/L (136-145); Total Protein 8.2 gm/dL (5.7-8.2); eGFR 30 See Note
--- NOTE | 2025-03-16 07:30 | PD.RESDS ---
Planned Discharge Date 03/16/25 DS: Providers Provider Date of admission: 03/06/25 21:49 Primary care physician: Physician No Primary/Family Admitting Provider: Celio Mace DO Attending Provider on Admission: Kamilla Patel DO Consults: 03/06/25 20:33 Consult to General Surgery Stat Comment: Intramuscular abscess right thigh Consulting Provider: Palma Austin 03/07/25 15:29 Referral Speech Therapy Routine Comment: stutter, progressive 03/08/25 09:51 Consult to Neurology / Tele-Neurology Routine Comment: speech incoherence Consulting Provider: Piotr Haskins 03/09/25 05:42 Referral Registered Dietitian Routine Comment: Referral Wound Care Routine Comment: 03/09/25 15:18 Referral OP Wound Healing Dept Routine Comment: Instructions: Right inner thigh abscess s/p I&D 03/09/25 15:46 Referral Physical Therapy Routine Comment: Physician Instructions: Attending Provider on DC: RESIDENT Cinda Discharging Provider: RESIDENT Cinda Hospital Course Hospital Course Hospital course: No acute events overnight pt reports feeling confused. Hgb 7.4 from 8, will transfuse 1 unit PRBC, f/u post transfusion H/H Time Spent with Patient Time attestation: Total time spent providing and/or coordinating discharge services: Home Health Home Health Referral Orders: 03/14/25 10:19 Home Health Referral Routine Reason For Exam: right thigh abscess Home-Bound The patient must either because of illness or injury, need the aid of supportive devices such as crutches, canes, wheelchairs, and walkers; the use of special transportation; or the assistance of another person in order to leave their place of residence; OR have a condition such that leaving his or her home is medically contraindicated. In addition, the patient also meets the following criteria: patient is normally unable to leave the home and leaving home requires considerable taxing effort. Addendum to Home Health Certification Practitioner's Certification: I certify that the patient has been under my care in the hospital and the care of attending physician (see below). We had a [id number] encounter on (see date below). My clinical findings indicate that the patient is home bound per the above criteria and the Home Health Services noted in these orders are medically necessary. The primary reason for the [id number] encounter is related to the fact that the patient requires home health services. Date Certifying [id number] Physician Encounter: 03/06/25 Physician's Name who will Assume Oversight for HH Services: Physician No Primary/Family OIL WELL FISHING TOOL TECHNICIAN - Community Resources: No PT to Evaluate: Yes PT to evaluate and provide a treatmnet plan to increase patient's mobility and strength. Wound Care: Yes Home Health RN - Wound Care Order: as per surgeon/ wound nurse instructions IV Therapy: No RN Safety Evaluation: Yes RN to evaluate and create a plan of care that will produce positive outcomes. Palliative Treatment: No Palliative treatment and evaluate the need for hospice. Home Health Aide - Personal Care: Yes Home Health Aide to assist with any ADL's. Exam Vital Signs Temp Pulse Resp BP Pulse Ox O2 Del Method O2 Flow Rate 96.9 F 90 14 91/61 96 Nasal Cannula 1 03/16/25 04:00 03/16/25 05:09 03/16/25 04:00 03/16/25 05:09 03/16/25 04:00 03/16/25 04:00 03/16/25 04:00 Discharge Plan Plan Patient Disposition: Home w/HOME HEALTH Patient condition on transfer: Stable Care Plan Goals: You have been started on the following medications: -Buspirone 5mg three times daily -Doxycycline 100mg twice daily for Your levothyroxine has been increased to 50 mcg daily The following meds are being HELD: -aspirin, finestaride, entresto, hydroxyzine Please follow up with your primary doctor within 7-10 days. Please see your french comber about restarting your home medications. Please see Dr. Haskins outpatient for follow up. Please follow up with wound care outpatient. F/U with thyroid functions after 6-8 weeks to adjust levothyroxine dose Speech therapy recommends a soft, chopped diet. Please return to ED if you develop new or worsening symptoms. You are being sent with home health for wound care. Prescriptions/Referrals Prescriptions/Med Rec: New levothyroxine 25 mcg Tablet 50 mcg PO ACBR 30 Days Qty: 60 0RF buspirone 5 mg Tablet 5 mg PO TID 30 Days Qty: 90 0RF Continued pantoprazole 40 mg tablet,delayed release (DR/EC) 40 mg PO DAILY Patient Comments: TAKE 1 TABLET BY MOUTH EVERY DAY 30 MINUTES BEFORE BREAKFAST tamsulosin 0.4 mg capsule 0.4 mg PO DAILY acetaminophen [Tylenol] 325 mg tablet 650 mg PO BID PRN (Reason: pain) Qty: 14 0RF spironolactone 25 mg tablet 25 mg PO QDAY Patient Comments: TAKE 1 TABLET BY MOUTH EVERY DAY FOR 90 DAYS carvedilol [Coreg] 3.125 mg tablet 3.125 mg PO BID Qty: 60 0RF Rx Instructions: must administer with a meal/food midodrine 10 mg tablet 10 mg PO TID 30 Days Qty: 90 0RF Rx Instructions: Hold if BP >140/80 Discontinued hydroxyzine HCl 50 mg tablet 50 mg PO QID PRN (Reason: Anxiety) levothyroxine 25 mcg tablet 25 mcg PO DAILY Patient Comments: TAKE 1 TABLET BY MOUTH EVERY DAY finasteride 5 mg tablet 5 mg PO DAILY aspirin 81 mg Tablet 81 mg PO DAILY fluticasone propionate 50 mcg/actuation [place],Suspension 1 spray INTRANASAL BID Entresto 24-26 mg tablet 0.5 tab PO BID Qty: 60 2RF clotrimazole 1 % cream 1 applic topical BID Qty: 15 0RF Referrals: Doc - Wound Care,Generic [Physician] - No Primary/Family,Physician [Primary Care Provider] - Piotr Haskins MD [Physician] - Patient/Caregiver Discharge Instructions Discharge Activity: activity as tolerated Education Materials: When You Need a Blood Transfusion ..., Neutropenia, Dysphagia Diet- Managing Drinks, Dysphagia Diet- Managing Foods, ED Abscess, Incision And Drainage Print Language: Welsh Stand Alone Forms: [employer] Award Info., Patient Portal Info Letter
[2025-03-16 07:54] LABS: Vitamin B1 (Thiamine)* 9 nmol/L (8-30)
[2025-03-16] MEDS: PANTOPRAZOLE 20 MG TABLET PO (08:47)
[2025-03-16] MEDS: TAMSULOSIN HCL 0.4 MG CAPSULE PO (08:48)
[2025-03-16] MEDS: DOXYCYCLINE INJ 100 MG in SODIUM CHLORIDE 0.9% (POP) 100 ML IV (08:48)
[2025-03-16] MEDS: RINGERS LACTATED 1000 ML 250 ML 60 ML IV (08:54)
--- NOTE | 2025-03-16 09:38 | PC.SS ---
Update: Plan is for the patient to d/c today. Patient to return to [facility].
--- NOTE | 2025-03-16 11:14 | ESPR_ITS ---
<Statement entered by Devonte Balbuena MD - 03/16/25 11:38> Patient was seen and examined at the bedside. No acute overnight events reported. Patient was able to lift his leg with mild pain. Patient will be kept for 1 more day for physical therapy. Labs were stable. Continuing delirium precautions and continuing buspirone 7.5 mg 3 times daily along with melatonin at night. Anticipating discharge tomorrow. I discussed and supervised with the advisory internship physician who took care of this patient. I personally saw and examined the patient. I agree with most of the assessment and plan. Disclaimer: Despite multiple revisions, due to the dictation software being used, the document bellow may not be free of grammatical errors including phonetic/typographic errors. However, this does not deter from our commitment to providing health care in the patient's best interest in mind. Plan of care discussed with attending Physician Dr. Jorge Balbuena MD PGY-3 Documentation for date of: 03/16/25 Subjective Subjective Interval history: No acute events overnight pt tolerating inc buspirone dose of 7.5 well. less tremmors noted, stutter somewhat improved pt reports feeling less confused than prior days Exam Vital Signs Temp Pulse Resp BP Pulse Ox O2 Del Method O2 Flow Rate 97.1 F 91 18 116/66 97 Nasal Cannula 2 03/16/25 08:00 03/16/25 08:47 03/16/25 08:40 03/16/25 08:47 03/16/25 08:40 03/16/25 08:00 03/16/25 08:40 Narrative Exam GENERAL APPEARANCE: Elderly frail-appearing male with occasional stutter speech in no acute distress. laying in bed with glasses. A&o x3 HEENT: NC, AT. Dry mucous membrane. EOMI, clear conjunctiva, oropharynx clear. NECK: No stiffness or restricted ROM. HEART: Regular rate and regular rhythm with TITLE CURATOR-D, normal S1/S2, no m/r/g LUNGS: CTAB, moving air well. No crackles or wheezes are heard. ABDOMEN: Soft, nontender, nondistended with good bowel sounds heard. , condom cath in place, and diaper on top. BACK: No CVAT, no obvious deformity. EXTREMITIES: upper extremity tremors noted to be less than prior, no resting tremor, LLE edema of ankle and foot. NEUROLOGICAL: Grossly nonfocal. Alert and oriented, moving all 4 extremities. Patient has action tremor no resting tremor noted. CN not formally tested but appear grossly intact. Stuttering with speech occasionally Skin: Right medial thigh surgical incision site intact, clean, dressing in place packed Psych: Stuttering speech (much improved from yesterday) Objective Labs 03/17/25 04:54 03/17/25 04:54 Labs: Laboratory Results - last 24 hr 03/09/25 03/10/25 03/15/25 06:51 11:06 08:00 WBC RBC Hgb Hct MCV MCH MCHC RDW Std Deviation Plt Count Neut % (Auto) Lymph % (Auto) Faulkner % (Auto) Eos % (Auto) Baso % (Auto) Neut # (Auto) Lymph # (Auto) Faulkner # (Auto) Eos # (Auto) Baso # (Auto) Immature Gran # (Auto) Absolute Nucleated RBC Immature Gran % Nucleated RBC % Sodium Potassium Chloride Carbon Dioxide Anion Gap BUN Creatinine Estim Creat Clear Calc eGFR BUN/Creatinine Ratio Glucose Calculated Osmolality Calcium Corrected Calcium Phosphorus Magnesium Total Bilirubin AST ALT Alkaline Phosphatase Total Protein Albumin Globulin Albumin/Globulin Ratio Thiamine (Vit B1) Mini 9 Misc Test Result Blood Type O Positive Antibody Screen NEGATIVE Crossmatch See Detail See Detail Blood Bank Wristband ID Yes 03/15/25 03/16/25 14:34 05:35 WBC 0.6 L* RBC 3.49 L Hgb 9.4 L D 10.1 L Hct 27.0 L 31.0 L MCV 89 MCH 28.9 MCHC 32.6 RDW Std Deviation 53.6 H Plt Count 25 L* D Neut % (Auto) 20 L Lymph % (Auto) 64 H Faulkner % (Auto) 5 Eos % (Auto) 3 Baso % (Auto) 3 H Neut # (Auto) 0.1 L Lymph # (Auto) 0.4 L Faulkner # (Auto) 0.0 Eos # (Auto) 0.0 Baso # (Auto) 0.0 Immature Gran # (Auto) 0.03 H Absolute Nucleated RBC 0.00 Immature Gran % 5 H Nucleated RBC % 0 Sodium 143 Potassium 4.2 D Chloride 111 H Carbon Dioxide 19.7 L Anion Gap 12 BUN 57 H Creatinine 2.1 H Estim Creat Clear Calc 22.4 L eGFR 30 L BUN/Creatinine Ratio 27 H Glucose 129 H Calculated Osmolality 302 H Calcium 9.3 Corrected Calcium 10.3 H Phosphorus 4.3 Magnesium 2.1 Total Bilirubin 0.9 AST 33 ALT 58 H Alkaline Phosphatase 85 Total Protein 8.2 Albumin 2.8 L Globulin 5.4 H Albumin/Globulin Ratio 0.5 L Thiamine (Vit B1) Mini Misc Test Result Platelets confirmed Blood Type Antibody Screen Crossmatch Blood Bank Wristband ID Quality Measures Quality Measures VTE prophylaxis (SCDs) Advance care planning discussed with:: patient Assessment & Plan Assessment Current Active Medications: Generic Name Dose Route Start Last Admin Trade Name Freq PRN Reason Stop Dose Admin Acetaminophen 650 mg 03/06/25 21:49 Acetaminophen 325 Mg Tablet PO 04/05/25 21:48 Q6H PRN Fever > 100.3 or pain Protocol Buspirone HCl 7.5 mg 03/15/25 14:00 03/16/25 05:08 Buspirone Hcl 5 Mg Tablet PO 04/14/25 13:59 7.5 mg TID PRASANTH Administration Carvedilol 3.125 mg 03/07/25 09:00 03/16/25 08:47 Carvedilol 3.125 Mg Tablet PO 04/06/25 08:59 3.125 mg BID PRASANTH Administration Citric Acid/Sodium Citrate 30 ml 03/13/25 21:00 03/16/25 09:04 Citric Acid/Sodium Citr 15 Ml Udc (Bicitra) PO 04/12/25 20:59 Not Given BID PRASANTH Hydromorphone HCl 0.5 mg 03/14/25 11:25 03/14/25 12:19 Hydromorphone Inj 2 Mg/Ml Vial IVP 03/19/25 11:24 0.5 mg Q4HR PRN Administration PAIN SCALE 4-10(Mod-Sev Doxycycline Hyclate 100 mg/ 100 mls @ 100 mls/hr 03/09/25 21:00 03/16/25 08:48 Sodium Chloride IV 03/16/25 20:59 100 mls/hr BID PRASANTH Administration Lactated Ringer's 1,000 mls @ 60 mls/hr 03/16/25 09:28 03/16/25 09:42 Lactated Ringers IV 03/16/25 13:37 Not Given .[id number] PRASANTH Levothyroxine Sodium 50 mcg 03/10/25 06:00 03/16/25 05:09 Levothyroxine Sodium 25 Mcg Tablet PO 04/09/25 05:59 50 mcg ACBR PRASANTH Administration Melatonin 5 mg 03/15/25 21:00 03/15/25 21:15 Melatonin 3 Mg Tablet PO 04/14/25 20:59 5 mg HS PRASANTH Administration Midodrine 10 mg 03/07/25 06:00 03/16/25 05:09 Midodrine 5 Mg Tablet PO 04/06/25 05:59 10 mg TID PRASANTH Administration Ondansetron HCl 4 mg 03/06/25 21:54 Ondansetron Inj 2 Mg/Ml Inj 2 Ml IVP 04/05/25 21:53 Q6H PRN NAUSEA OR VOMITING Protocol Pantoprazole Sodium 20 mg 03/10/25 09:00 03/16/25 08:47 Pantoprazole 20 Mg Tablet PO 04/09/25 08:59 20 mg QDAY PRASANTH Administration Protocol Sennosides 2 tab 03/13/25 09:00 03/16/25 09:04 Senna Tablet PO 04/12/25 08:59 Not Given QDAY PRASANTH Protocol Tamsulosin HCl 0.4 mg 03/07/25 09:00 03/16/25 08:48 Tamsulosin Hcl 0.4 Mg Capsule PO 04/06/25 08:59 0.4 mg DAILY PRASANTH Administration Plan 89-year-old male with past medical history of HFrEF (LVEF 10 to 15%), CAD, s/p CABG x 4, hypertension, CKD stage IV, myelodysplastic syndrome on chemo and transfusions, hypothyroidism who presents to the ED with right lower extremity posteromedial abscess, status post I&D with surgery wound cultures positive for MRSA, continue on antibiotics, the lower extremity shows abscess remains in the medial posterior thigh 5 x 3 x 10 cm, per Dr. Epperson abscess is too big to drain, recommend surgery therefore plan for surgery with Dr. Austin. On 03/13, I&D was performed by Dr. Austin, 30cc of pus removed from right thigh. Incision site clear and intact. pt still mildy delerius, oriented to place and self.Bcx and urine Cx NGTD. pt tolerated increased buspirone 7.5mg TID. pending PT eval post second I&D. # Pancytopenia # Myelodysplastic syndrome Initial labs: WBC 0.8, hemoglobin 9.1, hematocrit 26.7, platelet 35. MCV within normal limits Patient was on Azocitidine for myelodysplastic syndrome and requires frequent transfusions and Filgastrim Family informed that chemotherapy was held last week. Family has been thinking of hospice for the patient. ANC count 100, 03/09 - 1 unit of platelet was given before I&D - 3 additional units of platelets were given prior to second I&D procedure with Dr. Arango platelet levels at 48 Plan: -Follow-up CBC in a.m. 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 -Recommended to consider giving filgrastim and transfuse blood and give broad- spectrum antibiotics as necessary per oncology recs - Continue to monitor with CBC daily - Hold any anticoagulation due to low platelet count. DVT prophylaxis with SCDs only - Transfuse if hemoglobin < 7 - neutropenic precautions #Right lower extremity posterior medial abscess status post surgical I&D day 3 Patient initially developed right thigh fungal infection on 629 during previous hospitalization. Started on clotrimazole topical. Patient reports that he continued to apply the clotrimazole after discharge. Patient reports that he has noticed progressive swelling, redness, pain in this area. Physical exam showed nonfluctuant erythematous and warm area along the posterior medial aspect of the thigh. Right lower extremity CT without contrast showed low-density mass in the posteromedial thigh in adductor christiane muscle measuring 4.7 x 3.8 x 10.5, -03/11 CT lower extremity right Abscess remains in the medial posterior thigh, 5.0 x 2.9 x 10.2 cm -wound cx + MRSA - some concern for possible psoas infxn. Straight leg raise is limited given pain from abscess. Plan ?30cc pus drained by Dr. Arango for remnant abscess in the right medial posterior thigh. Surgical site intact, clean, with slight serosanguinous fluid draining. Tolerable pain. ?Filgrastim 300 mcg given per oncology recs ?d/c to Zosyn 2.25 g - cont doxycycline 100 IV twice daily for MRSA coverage , plan for discharge on Bactrim. ?Urine culture grew Pseudomonas sensitive (Zosyn 1-week treatment completed) - Postop pain management: dilaudid 0.5 q4h prn , apap 650 q6h PRN # ESTELLA on CKD stage IV, Cr downtrending (Cr:2.1 2.2) -Possible cardiorenal syndrome Initial labs: BUN 65, creatinine 2.1 Patient's baseline creatinine usually 1.5-1.8 Given 1 L normal saline in ED Patient has a history of HFrEF, important not to overload patient with IVF Plan: - Continue to monitor with CMP daily - Avoid nephrotoxic agents - IVF: 250 LR bolus at 60ml/hr 1x 03/15 100 LR bolus at 60ml/her 1x 03/16 HELD given LLE swelling - Albumin 25 g given x 1 #Metabolic encephalopathy vs Delirium- Resolved Pt found more confused at bedside this morning per and nursing staff. Favor post op delirium, cont to treat pain appropriately and orient pt regularly. - Follow up on daily labs - Melatonin 5-10 mg QHS per neuro recs. - treat pain appropriately, see #RLE abscess above - Have regular day and night schedule - Include family members or familiar people in patient care - Blood Cx and Ucx negative to date. # Hyperkalemia- resolved Potassium: wnl ? Kayexalate x 1 #NAGMA- -Possible diarrhoea -Patient had passage of loose stools in previous days -Continue Bicitra BID - Follow up on daily labs #Hyoptension -In setting of HFrEF ef 10-15% and MDS - Patient blood pressure is around 97/54 Plan: -Continue midodrine 10 mg 3 times daily -IV fluids were given initially during admission -IV albumin 25 g x 1 #UCx Psuedomonal - treatment completed - Zosyn stopped today 03/14/25. Pt has been on Zosyn for 1 week for Urine Pseudomona treatment. #Speech Stuttering #Essential tremors #? 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 ? Ammonia level less than 10, B12 1762, folate within normal limits. TSH 10.93. ?Pending thiamine and free T4 1.30 Plan: -Neurology recommended with buspirone increased from 5 mg to 7.5 3 times daily for anxiety, tolerating dose increase well. -Speech therapy recommended Chopped food to optimize independence with meals. -Consulted neurology for further recommendations ?Neurology is following the case. Neurology considerations are likely related to stress-induced tremor and stuter/psychogenic, medication induced parkinsonism, cerebellar CVA, vitamin deficiency, electrolyte abnormality ? Follow-up with thyroid functions in 4 to 6 weeks #Subclinical hypothyroidism - Patient is already on levothyroxine 25 mcg - TSH 10.93, free T4 1.30 Plan: -Increase of dose of levothyroxine to 50 mcg # HFrEF, EF 10 to 15% # Hx Hypertension TTE 02/16/25: LVEF 10 to 15% Home meds (per 02/24/25 discharge summary): Carvedilol 3.215 mg PO BID, Entresto 0.5 mg PO BID, Midodrine 10 mg PO TID BP in ED: sBP 93-107 / dBP 52-57 Initial labs: BNP elevated 2003 Initial chest x-ray showed vascular congestion. Right upper extremity Doppler negative for DVT Plan: - Resume home Coreg - Continue midodrine. Continue to monitor on telemetry, can hold Coreg if hypotensive (BP < 90/70) - Hold Entresto (2/2 ESTELLA) - Fluid restrictions - 1.5 L / day - Daily weights - Strict I&Os - Careful hydration #Elevated Vitamin B12 - Vitamin B12 1762 Plan: -Outpatient follow-up # Prolonged QTc Initial EKG showed QTc 531 Plan: - Continue to monitor on telemetry - Avoid QTc prolonging agents - replete electrolytes as necessary # Left buttock erythema Plan: - Frequent turns, continue to monitor - Wound care # Benign prostatic hypertrophy Plan - Continue home Tamsulosin 0.4 mg PO daily #Right lower extremity swelling concerning for DVT-R/0 On exam right ankle and foot were swollen compared to left Dx -Right lower extremity DVT ultrasound: No DVT #Loose bowel movements x 4-resolved Patient has reported 4 loose bowel movements yesterday, consider loose stools secondary to filgastram side effects versus antibiotic associated diarrhea given patient continues on Zosyn for right medial thigh abscess No loose stools today -Consider C. difficile PCR if loose bowel movements continue -CTM BMs #Left hand itchiness- Resolved Patient reported that after IV placement on left hand that he was experiencing itchiness, consider dermatitis to adhesive used for IV ? Topical Benadryl cream as needed to affected areas Dispo: Plan for home with home health patient family requesting help with hospital bed,pending PT reeval. DVT prophylaxis: SCDs GI prophylaxis: Protonix 20 Diet: Cardiac Diet Lines: Peripheral IV, condom catheter Code status: Full code Case discussed with my senior resident Dr. Balbuena Case discussed with my attending Dr. Jorge Hoang MD PGY-1 Attending Provider Attestation/Addendum Kamilla Sommers DO, attest that I was physically present for the kulkarni portions of the service and evaluated the patient with the resident and I reviewed and discussed the case with the resident and agree with the resident's findings and plans of care as documented above Patient seen evaluated this a.m. Patient is less confused today. He is able to flex his leg to 90 degrees and reports some pain in his incision site., But no psoas sign. Will have patient work with physical therapy due to deconditioning. Plan for discharge home with home health per family. They do not wish for patient to go to prison. They would like to continue with home health and have 24-hour care. Will follow-up with physical therapy recommendation. Continue with wound care.
--- NOTE | 2025-03-16 15:20 | PC.SS ---
Rounding Note: PT evaluation is pending. Plan is for the patient to d/c tomorrow with home health services.
[2025-03-16] MEDS: CITRIC ACID/SODIUM CITR 15 ML UDC (BICITRA) 30 ML PO (21:44)
[2025-03-16] MEDS: MELATONIN 3 MG TABLET 5 MG PO (21:46)
[2025-03-17] VITALS (13 sets, daily range): BP systolic 97–127; BP diastolic 61–73; PULSE 86–100; RESP 12–96; TEMP 36.2–36.7; O2SAT 91–96
[2025-03-17] MEDS: MIDODRINE 5 MG TABLET 10 MG PO ×3 (05:35→21:36)
[2025-03-17] MEDS: LEVOTHYROXINE SODIUM 25 MCG TABLET 50 MCG PO (05:35)
[2025-03-17 05:59] LABS: Basophils # (Auto) 0.0 Thou/mm3 (0.0-0.2); Basophils % (Auto) 2 % (0-2.5); Eosinophils # (Auto) 0.0 Thou/mm3 (0.0-0.5); Eosinophils % (Auto) 4 % (0-10); Hematocrit 25.2 % (41.0-53.0); Immature Granulocytes Auto 0.01 Thou/mm3 (0.00-0.00); Lymphocytes # (Auto) 0.4 Thou/mm3 (1.0-4.8); Lymphocytes % (Auto) 63 % (10-50); Mean Corpuscular HGB Conc 33.3 g/dl (31.0-37.0); Mean Corpuscular Hemoglobin 29.1 pg (25.0-35.0); Mean Corpuscular Volume 87 fL (80-100); Monocytes # (Auto) 0.0 Thou/mm3 (0.0-0.8); Monocytes % (Auto) 7 % (0-12); Neutrophils # (Auto) 0.1 Thou/mm3 (1.8-7.7); Neutrophils % (Auto) 23 % (37-80); Nucleated Red Blood Cell # 0.00 Thou/mm3 (0.00-0.00); Nucleated Red Blood Cell % 0 /100 WBC (0); RDW Standard Deviation 52.8 fL (35.1-43.9); Red Blood Count 2.89 Miln/mm3 (4.50-5.90)
[2025-03-17 06:16] LABS: Alanine Aminotransferase 46 U/L (10-49); Albumin, Serum 2.5 gm/dL (3.4-4.8); Albumin/Globulin Ratio 0.5 (1.2-2.2); Alkaline Phosphatase 68 U/L (46-116); Anion Gap 9 (7-16); Aspartate Amino Transferase 25 U/L (0-34); BUN/Creatinine Ratio 31 Ratio (12-20); Bilirubin,Total 0.8 mg/dL (0.3-1.2); Blood Urea Nitrogen 62 mg/dL (9-23); Calcium 9.1 mg/dL (8.3-10.6); Calcium (Corrected) 10.3 mg/dL (8.5-10.1); Carbon Dioxide 21.8 mMol/L (20.0-31.0); Chloride 113 mMol/L (98-107); Creatinine (Component) 2.0 mg/dL (0.6-1.3); Estimated Creatinine Clearance 23.5 mL/min (>60); Globulin 5.0 gm/dL (2.3-3.5); Glucose 139 mg/dL (74-106); Magnesium 1.8 mg/dL (1.6-2.6); Osmolality,Calculated 306 (275-295); Phosphorous 4.0 mg/dL (2.4-5.1); Potassium 4.1 mMol/L (3.4-5.1); Sodium 144 mMol/L (136-145); Total Protein 7.5 gm/dL (5.7-8.2); eGFR 32 See Note
[2025-03-17 06:30] LABS: Hemoglobin 8.4 g/dL (13.5-16.0); Platelet Count 21 Thou/mm3 (140-440); White Blood Count 0.6 Thou/mm3 (3.8-10.6)
--- NOTE | 2025-03-17 07:41 | PD.RESDS ---
Planned Discharge Date 03/17/25 DS: Providers Provider Date of admission: 03/06/25 21:49 Primary care physician: Physician No Primary/Family Admitting Provider: Celio Mace DO Attending Provider on Admission: Kamilla Patel DO Consults: 03/06/25 20:33 Consult to General Surgery Stat Comment: Intramuscular abscess right thigh Consulting Provider: Palma Austin 03/07/25 15:29 Referral Speech Therapy Routine Comment: stutter, progressive 03/08/25 09:51 Consult to Neurology / Tele-Neurology Routine Comment: speech incoherence Consulting Provider: Piotr Haskins 03/09/25 05:42 Referral Registered Dietitian Routine Comment: Referral Wound Care Routine Comment: 03/09/25 15:18 Referral OP Wound Healing Dept Routine Comment: Instructions: Right inner thigh abscess s/p I&D 03/09/25 15:46 Referral Physical Therapy Routine Comment: Physician Instructions: Attending Provider on DC: Dr. 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 Austin on 03/13, 30cc of pus removed from right thigh. Incision site clear and intact. Pt recieved total of 4 units platelets. For MRSA + wound treated with abx, Zosyn (7 days completed) and doxy (03/09- 03/23) (14 day course intended) pt is discharged with doxycycline 100mg BID for 7 more days. pt was mildly delirious post I&D op, now resolved. While inpatient pt had BUE action tremors and stutter, Neurology was consulted who attributed his symptoms to anxiety, started on buspirone 5mg TID which was then increased to 7.5mg TID which pt tolerated well and had reduced tremors and stuttering improved. Per neuro recs, pt started on 5mg melatonin QHS. Pt Ucx positive for pseudamonas, treated with zosyn for 7 days. Blood cx NGTD Patients levothyroxine was increased from [address] Harman (oncology) was curbsided, who reccomended filgastim PRN, pt recieved 2x filgrastim 300 mcg subcutaneous while inpatient. Given significant cardiovascular history, Hgb Goal> 8, pt recieved 2 units PRBC with appropriate bumps in Hgb. PT consulted, pt requiring max assist to stand and to sit and strongly recommended discharge to SNF, however family and pt prefer to go home with HH. Patient medically cleared for discharge Diagnoses # Pancytopenia # Myelodysplastic syndrome #Right lower extremity posterior medial abscess status post surgical I&D # ESTELLA on CKD stage IV, Cr uptrending (Cr: 2.2) -Possible cardiorenal syndrome #Delerium #NAGMA #Hyoptension -In setting of HFrEF ef 10-15% and MDS #UCx Psuedomonal - treatment completed #Speech Stuttering #Action tremors #Anxiety Discharge instructions You have been started on the following medications: -Take doxycycline 100 mg twice a day for 7 more days to complete course -Buspirone 7.5 mg three times daily Your levothyroxine has been increased to 50 mcg daily The following meds are being HELD: -aspirin, finestaride, entresto, hydroxyzine Please get CBC every 10-12 days for seeing your hemoglobin and requiring blood transfusion if drops below 8 per oncology recs Please follow up with your primary doctor within 7-10 days. Please see your adjunct faculty instructor about restarting your home medications. Please see Dr. Haskins outpatient for follow up. Please follow up with wound care outpatient. F/U with thyroid functions after 6-8 weeks to adjust levothyroxine dose Speech therapy recommends a soft, chopped diet. Please return to ED if you develop new or worsening symptoms. You are being sent with home health for wound care. Follow up at [facility], [address] [place] [address]. Call [phone] for appointment. May shower than change dressing to right thigh once a day and as needed for falling off or soiling. Goal is to keep dressing clean and dry avoiding contamination with urine or feces. Dressing Change Home Care: You have a wound that needs special care to heal.? Your body will make the new skin needed to close your wound, but you have to help.? Germs and old skin on the wound have to be removed.? This is done by changing the dressing on the wound as directed by your doctor. Wound:? Right Inner Thigh and over your tailbone Supplies/Equipment (keep all supplies in one place clean and dry) o?? Normal Saline (salt water) solution.? You can make you own by boiling 2 cups of water with ? teaspoon of salt for 10 minutes.? Keep in a glass jar in the refrigerator and make a new batch every day. o?? Clean/Irrigate wound with ?normal saline or wound cleanser o?? Medication for wound: normal saline moistened gauze o?? Primary dressing ? o?? Secondary dressing: dry gauze and gauze roll o?? Tape o?? Gloves o?? Q-tips o?? Small trash bag o?? Other supplies Follow these instructions: 1.??? Wash your hands with soap and water. 2.??? Gather all your supplies and place on a clean towel or paper towel. 3.??? Put on gloves.- 4.??? Remove all of the old dressing (including gauze packing if any) and put in the trash bag. Saturate gauze packing with wound cleanser or normal saline and gently remove to avoid bleeding 5.??? Take off the gloves and put in trash bag. 6.??? If not using gloves wash your hands again or put on new gloves. 7.??? Irrigate wound with Normal saline. ?Place gauze in trash bag. 8.???Right Thigh Pack wound with strip packing including under the skin. Start inserting packing towards the top of the wound and make your way in a cicular pattern until resistance if felt and entire defect is filled. Cover with foam dressing. 9.??? Coccyx/tail bone: apply skin prep allow to dry and cover with foam dressing once a day. Reposition yourself every 2 hours side to side to avoid being on your tailbone If active bleeding occurs, apply tight dressing and return to MD or ER. ? Notify primary doctor or return to Emergency Room if any of the following: ? Fever above 100.6? F. ? Increased pain ? Increase swelling ? Red streaks around your wound ? Drainage becomes foul smelling or changes color ? The wound is larger or deeper ? The wound looks dried out or dark ? Bleeding that does not stop with holding pressure Case discussed with my senior resident Dr. Balbuena Case discussed with my attending Dr. Jorge Hoang MD PGY-1 Status at Discharge Functional status at discharge: bed bound Time Spent with Patient Time attestation: Total time spent providing and/or coordinating discharge services: Time spent: Greater than 30 minutes Home Health Home Health Referral Orders: 03/16/25 14:02 Home Health Referral Routine Reason For Exam: abscess of thigh Home-Bound The patient must either because of illness or injury, need the aid of supportive devices such as crutches, canes, wheelchairs, and walkers; the use of special transportation; or the assistance of another person in order to leave their place of residence; OR have a condition such that leaving his or her home is medically contraindicated. In addition, the patient also meets the following criteria: patient is normally unable to leave the home and leaving home requires considerable taxing effort. Addendum to Home Health Certification Practitioner's Certification: I certify that the patient has been under my care in the hospital and the care of attending physician (see below). We had a [id number] encounter on (see date below). My clinical findings indicate that the patient is home bound per the above criteria and the Home Health Services noted in these orders are medically necessary. The primary reason for the [id number] encounter is related to the fact that the patient requires home health services. Date Certifying [id number] Physician Encounter: 03/06/25 Physician's Name who will Assume Oversight for Services: Ray Gillette (PCP) Physician's Phone No.who will Assume Oversight for Service: VENETIAN BLIND CLEANER - Community Resources: No PT to Evaluate: Yes PT to evaluate and provide a treatmnet plan to increase patient's mobility and strength. Wound Care: Yes Home Health RN - Wound Care Order: as per surgeon's instructions IV Therapy: No RN Safety Evaluation: Yes RN to evaluate and create a plan of care that will produce positive outcomes. Palliative Treatment: No Palliative treatment and evaluate the need for hospice. Home Health Aide - Personal Care: Yes Home Health Aide to assist with any ADL's. Exam Vital Signs Temp Pulse Resp BP Pulse Ox O2 Del Method O2 Flow Rate 97.3 F 93 22 H 97/67 93 L Room Air 1 03/17/25 04:00 03/17/25 06:29 03/17/25 06:29 03/17/25 05:35 03/17/25 04:00 03/17/25 04:00 03/17/25 00:00 Narrative Exam GENERAL APPEARANCE: Elderly frail-appearing male with occasional stutter speech in no acute distress. laying in bed with glasses. A&o x3 HEENT: NC, AT. Dry mucous membrane. EOMI, clear conjunctiva, oropharynx clear. NECK: No stiffness or restricted ROM. HEART: Regular rate and regular rhythm with FORGE UTILITY WORKER-D, normal S1/S2, no m/r/g LUNGS: CTAB, moving air well. No crackles or wheezes are heard. ABDOMEN: Soft, nontender, nondistended with good bowel sounds heard. , condom cath in place, and diaper on top. BACK: No CVAT, no obvious deformity. EXTREMITIES: upper extremity tremors noted to be less than prior, no resting tremor, LLE edema of ankle and foot. (DVT negative US ) NEUROLOGICAL: Grossly nonfocal. Alert and oriented, moving all 4 extremities. Patient has action tremor no resting tremor noted. CN not formally tested but appear grossly intact. Stuttering with speech occasionally Skin: Right medial thigh surgical incision site intact, clean, dressing in place packed Psych: Stuttering speech (much improved from yesterday Discharge Plan Plan Patient Disposition: Disposition Comment: [facility] Patient condition on transfer: Stable Care Plan Goals: You have been started on the following medications: -Take doxycycline 100 mg twice a day for 7 more days to complete course -Buspirone 7.5 mg three times daily Your levothyroxine has been increased to 50 mcg daily The following meds are being HELD: -aspirin, finestaride, entresto, hydroxyzine Please get CBC every 10-12 days for seeing your hemoglobin and requiring blood transfusion if drops below 8 per oncology recs Please follow up with your primary doctor within 7-10 days. Please see your adjunct faculty instructor about restarting your home medications. Please see Dr. Haskins outpatient for follow up. Please follow up with wound care outpatient. F/U with thyroid functions after 6-8 weeks to adjust levothyroxine dose Speech therapy recommends a soft, chopped diet. Please return to ED if you develop new or worsening symptoms. You are being sent with home health for wound care. Follow up at [facility], [address] [place] [address]. Call [phone] for appointment. May shower than change dressing to right thigh once a day and as needed for falling off or soiling. Goal is to keep dressing clean and dry avoiding contamination with urine or feces. Dressing Change Home Care: You have a wound that needs special care to heal.? Your body will make the new skin needed to close your wound, but you have to help.? Germs and old skin on the wound have to be removed.? This is done by changing the dressing on the wound as directed by your doctor. Wound:? Right Inner Thigh and over your tailbone Supplies/Equipment (keep all supplies in one place clean and dry) o?? Normal Saline (salt water) solution.? You can make you own by boiling 2 cups of water with ? teaspoon of salt for 10 minutes.? Keep in a glass jar in the refrigerator and make a new batch every day. o?? Clean/Irrigate wound with ?normal saline or wound cleanser o?? Medication for wound: normal saline moistened gauze o?? Primary dressing ? o?? Secondary dressing: dry gauze and gauze roll o?? Tape o?? Gloves o?? Q-tips o?? Small trash bag o?? Other supplies Follow these instructions: 1.??? Wash your hands with soap and water. 2.??? Gather all your supplies and place on a clean towel or paper towel. 3.??? Put on gloves.- 4.??? Remove all of the old dressing (including gauze packing if any) and put in the trash bag. Saturate gauze packing with wound cleanser or normal saline and gently remove to avoid bleeding 5.??? Take off the gloves and put in trash bag. 6.??? If not using gloves wash your hands again or put on new gloves. 7.??? Irrigate wound with Normal saline. ?Place gauze in trash bag. 8.???Right Thigh Pack wound with strip packing including under the skin. Start inserting packing towards the top of the wound and make your way in a cicular pattern until resistance if felt and entire defect is filled. Cover with foam dressing. 9.??? Coccyx/tail bone: apply skin prep allow to dry and cover with foam dressing once a day. Reposition yourself every 2 hours side to side to avoid being on your tailbone If active bleeding occurs, apply tight dressing and return to MD or ER. ? Notify primary doctor or return to Emergency Room if any of the following: ? Fever above 100.6? F. ? Increased pain ? Increase swelling ? Red streaks around your wound ? Drainage becomes foul smelling or changes color ? The wound is larger or deeper ? The wound looks dried out or dark ? Bleeding that does not stop with holding pressure Prescriptions/Referrals Referrals: Doc - Wound Care,Generic [Physician] - No Primary/Family,Physician [Primary Care Provider] - Piotr Haskins MD [Physician] - Patient/Caregiver Discharge Instructions Meds to Beds: No Discharge Activity: activity as tolerated Education Materials: When You Need a Blood Transfusion ..., Neutropenia, Nutrition for Wound Healing, Pressure Injury Dc, Changing Dressing Dc, Wound Care Dc, Discharge Instructions Wound ..., Preventing Surgical Site Infections, Dysphagia Diet- Managing Drinks, Dysphagia Diet- Managing Foods, ED Abscess, Incision And Drainage Print Language: Polish Activity Restrictions/Additional Instructions: WOUND CARE- 1) Right medial thigh abscess: Moistened with NS and gently remove packing. Irrigate well with NS and pat dry, Repack wound with 1 strip packing including circumferential undermining. Cover with allyven dressing daily and PRN for falling off or soiling. 2) Stage 1 with epidermal stripping over sacrum: cleanse with NS, pat dry, apply skin prep and cover with allyven dressing daily and PRN for falling off or soiling. Side to side repositioning except for meals, Negative heel pressure, No briefs please. Please teach family wound care and send supplies x 1 week home on discharge Stand Alone Forms: [employer]ony Award Info., Patient Portal Info Letter Discharge Order Discharge Orders: Discharge (Routine); Ordered 03/22/25 Ordered By: Ray Ernst Quality Discharge Quality Measures VTE prophylaxis and sepsis
[2025-03-17 08:43] LABS: Slide Review Platelets confirmed
[2025-03-17] MEDS: TAMSULOSIN HCL 0.4 MG CAPSULE PO (09:00)
[2025-03-17] MEDS: PANTOPRAZOLE 20 MG TABLET PO (09:00)
[2025-03-17] MEDS: CITRIC ACID/SODIUM CITR 15 ML UDC (BICITRA) 30 ML PO ×2 (09:01→21:32)
[2025-03-17] MEDS: Magnesium Sulfate 2 GM Ivpb 2 GM/50 ML BAG IV (09:18)
--- NOTE | 2025-03-17 09:25 | PC.SS ---
Update: Discharge plan is home with health. Patient to d/c today.
--- NOTE | 2025-03-17 10:45 | PC.NURSE ---
Dr. Patel at bedside to discuss POC and discharge plan with patient and Tamara. Tamara request using [facility] transport services. Tamara () states she will arrange for wheelchair to be dropped off to patient at bedside. Because of concerned weakness of patient, Dr. Patel will reach out to PT for a re-assessment and will wait for wheelhchair to arrive to unit.
--- NOTE | 2025-03-17 11:10 | PC.NURSE ---
Tamara at bedside with concerns regarding transportation using [place] bus services; Leif STERN explains that we can utilize [employer] services using [employer]. Pt is relieved and agrees to transportation set-up. Awaiting transportation time set-up.
--- NOTE | 2025-03-17 11:49 | PC.SS ---
GRADES 1 THRU 6 VISITING TEACHER notified by bedside nurse discharge orders present. [employer] 1 [employer] VISITING TEACHER contacted patient's son to discuss transport plan. [employer] 1 [employer]RU [employer] VISITING TEACHER provided quote for [facility] to cover transport, $265.00. Patient's son stated inability to cover transport cost. catering convention services manager will assist on scheduling transport.
--- NOTE | 2025-03-17 12:17 | PC.SS ---
Transport scheduled for 06:30 pm laquita. Daniela to provide transport. WASTE DISPOSAL PLANT OPERATOR updated bedside nurse and patient's son.
--- NOTE | 2025-03-17 14:27 | PC.SS ---
Rounding Note: Plan to d/c patient home with home health.
--- NOTE | 2025-03-17 15:29 | ESPR_ITS ---
<Statement entered by Devonte Balbuena MD - 03/17/25 15:43> Patient was seen and examined at the bedside. Patient appeared weaker however had no acute complaints. Family was updated regarding patient's current labs and overall clinical condition. 1/2 blood cultures grew GPC. Will keep the patient for now and repeat blood cultures tomorrow. Continuing doxycycline for now. All labs and orders were reviewed. I discussed and supervised with the bakery pastry internship physician who took care of this patient. I personally saw and examined the patient. I agree with most of the assessment and plan. Disclaimer: Despite multiple revisions, due to the dictation software being used, the document bellow may not be free of grammatical errors including phonetic/typographic errors. However, this does not deter from our commitment to providing health care in the patient's best interest in mind. Plan of care discussed with attending Physician Dr. Jorge Balbuena MD PGY-3 Documentation for date of: 03/17/25 Subjective Subjective Interval history: No acute events overnight Delirium improved PT recommend SNF given max assist to sit and stand, pt and family prefer home with HH. 1/2 Bcx with GPC Exam Vital Signs Temp Pulse Resp BP Pulse Ox O2 Del Method O2 Flow Rate 98.1 F 94 21 H 109/66 92 L Room Air 1 03/17/25 12:00 03/17/25 13:14 03/17/25 12:00 03/17/25 13:14 03/17/25 12:00 03/17/25 12:00 03/17/25 00:00 Narrative Exam GENERAL APPEARANCE: Elderly frail-appearing male with occasional stutter speech in no acute distress. laying in bed with glasses. A&o x3 HEENT: NC, AT. Dry mucous membrane. EOMI, clear conjunctiva, oropharynx clear. NECK: No stiffness or restricted ROM. 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 No crackles or wheezes are heard. Tachypnic at baseline ABDOMEN: Soft, nontender, nondistended with good bowel sounds heard. , condom cath in place, and diaper on top. BACK: No CVAT, no obvious deformity. EXTREMITIES: upper extremity tremors noted to be less than prior, no resting tremor, LLE edema of ankle and foot. (DVT negative US ) NEUROLOGICAL: Grossly nonfocal. Alert and oriented, moving all 4 extremities. Patient has action tremor no resting tremor noted. CN not formally tested but appear grossly intact. Stuttering with speech occasionally Skin: Right medial thigh surgical incision site intact, clean, dressing in place packed Psych: Stuttering speech (much improved from yesterday Objective Labs 03/17/25 04:54 03/17/25 04:54 Labs: Laboratory Results - last 24 hr 03/17/25 04:54 WBC 0.6 L* RBC 2.89 L Hgb 8.4 L Hct 25.2 L MCV 87 MCH 29.1 MCHC 33.3 RDW Std Deviation 52.8 H Plt Count 21 L* Neut % (Auto) 23 L Lymph % (Auto) 63 H [place] % (Auto) 7 Eos % (Auto) 4 Baso % (Auto) 2 Neut # (Auto) 0.1 L Lymph # (Auto) 0.4 L [place] # (Auto) 0.0 Eos # (Auto) 0.0 Baso # (Auto) 0.0 Immature Gran # (Auto) 0.01 H Absolute Nucleated RBC 0.00 Immature Gran % 2 H Nucleated RBC % 0 Sodium 144 Potassium 4.1 Chloride 113 H Carbon Dioxide 21.8 Anion Gap 9 BUN 62 H Creatinine 2.0 H Estim Creat Clear Calc 23.5 L eGFR 32 L BUN/Creatinine Ratio 31 H Glucose 139 H Calculated Osmolality 306 H Calcium 9.1 Corrected Calcium 10.3 H Phosphorus 4.0 Magnesium 1.8 Total Bilirubin 0.8 AST 25 ALT 46 Alkaline Phosphatase 68 Total Protein 7.5 Albumin 2.5 L Globulin 5.0 H Albumin/Globulin Ratio 0.5 L Misc Test Result Platelets confirmed Quality Measures Quality Measures VTE prophylaxis and sepsis Current suspected stage: sepsis Possible source: skin/soft tissue Blood cultures ordered: yes Antibiotic ordered: Yes Advance care planning discussed with:: patient Assessment & Plan Assessment Current Active Medications: Generic Name Dose Route Start Last Admin Trade Name Freq PRN Reason Stop Dose Admin Acetaminophen 650 mg 03/06/25 21:49 Acetaminophen 325 Mg Tablet PO 04/05/25 21:48 Q6H PRN Fever > 100.3 or pain Protocol Buspirone HCl 7.5 mg 03/15/25 14:00 03/17/25 13:14 Buspirone Hcl 5 Mg Tablet PO 04/14/25 13:59 7.5 mg TID PRASANTH Administration Carvedilol 3.125 mg 03/07/25 09:00 03/17/25 08:59 Carvedilol 3.125 Mg Tablet PO 04/06/25 08:59 3.125 mg BID PRASANTH Administration Citric Acid/Sodium Citrate 30 ml 03/13/25 21:00 03/17/25 09:01 Citric Acid/Sodium Citr 15 Ml Udc (Bicitra) PO 04/12/25 20:59 30 ml BID PRASANTH Administration Hydromorphone HCl 0.5 mg 03/14/25 11:25 03/14/25 12:19 Hydromorphone Inj 2 Mg/Ml Vial IVP 03/19/25 11:24 0.5 mg Q4HR PRN Administration PAIN SCALE 4-10(Mod-Sev Levothyroxine Sodium 50 mcg 03/10/25 06:00 03/17/25 05:35 Levothyroxine Sodium 25 Mcg Tablet PO 04/09/25 05:59 50 mcg ACBR PRASANTH Administration Melatonin 5 mg 03/15/25 21:00 03/16/25 21:46 Melatonin 3 Mg Tablet PO 04/14/25 20:59 5 mg HS PRASANTH Administration Midodrine 10 mg 03/07/25 06:00 03/17/25 13:14 Midodrine 5 Mg Tablet PO 04/06/25 05:59 10 mg TID PRASANTH Administration Ondansetron HCl 4 mg 03/06/25 21:54 Ondansetron Inj 2 Mg/Ml Inj 2 Ml IVP 04/05/25 21:53 Q6H PRN NAUSEA OR VOMITING Protocol Pantoprazole Sodium 20 mg 03/10/25 09:00 03/17/25 09:00 Pantoprazole 20 Mg Tablet PO 04/09/25 08:59 20 mg QDAY PRASANTH Administration Protocol Sennosides 2 tab 03/13/25 09:00 03/17/25 09:00 Senna Tablet PO 04/12/25 08:59 2 tab QDAY PRASANTH Administration Protocol Tamsulosin HCl 0.4 mg 03/07/25 09:00 03/17/25 09:00 Tamsulosin Hcl 0.4 Mg Capsule PO 04/06/25 08:59 0.4 mg DAILY PRASANTH Administration Plan 89-year-old male with past medical history of HFrEF (LVEF 10 to 15%), CAD, s/p CABG x 4, hypertension, CKD stage IV, myelodysplastic syndrome on chemo and transfusions, hypothyroidism who presents to the ED with right lower extremity posteromedial abscess, status post I&D with surgery wound cultures positive for MRSA, continue on antibiotics, the lower extremity shows abscess remains in the medial posterior thigh 5 x 3 x 10 cm, per Dr. Epperson abscess is too big to drain, recommend surgery therefore plan for surgery with Dr. Austin. On 03/13, I&D was performed by Dr. Austin, 30cc of pus removed from right thigh. Incision site clear and intact. Urine Cx NGTD. PT reccomend SNF, however family and pt prefer home with HH. Bcx 1/2 with GPC on preliminary, continues on doxycycline 100mg BID. pending repeat Bcx tomorrow. #GPC bacteremia / Bx Dx -follow up speciation of Bcx with GPC -repeat Bcx 03/18 Tx -cont IV doxy 100mg BID (see #RLE absecess below) # Pancytopenia # Myelodysplastic syndrome Initial labs: WBC 0.8, hemoglobin 9.1, hematocrit 26.7, platelet 35. MCV within normal limits Patient was on Azocitidine for myelodysplastic syndrome and requires frequent transfusions and Filgastrim Family informed that chemotherapy was held last week. Family has been thinking of hospice for the patient. ANC count 100, 03/09 - 1 unit of platelet was given before I&D - 3 additional units of platelets were given prior to second I&D procedure with Dr. Arango platelet levels at 48 Plan: -Follow-up CBC in a.m. 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 -Recommended to consider giving filgrastim and transfuse blood and give broad- spectrum antibiotics as necessary per oncology recs - Continue to monitor with CBC daily - Hold any anticoagulation due to low platelet count. DVT prophylaxis with SCDs only - Transfuse if hemoglobin < 7 - neutropenic precautions #Right lower extremity posterior medial abscess status post surgical I&D day 4 Patient initially developed right thigh fungal infection on 629 during previous hospitalization. Started on clotrimazole topical. Patient reports that he continued to apply the clotrimazole after discharge. Patient reports that he has noticed progressive swelling, redness, pain in this area. Physical exam showed nonfluctuant erythematous and warm area along the posterior medial aspect of the thigh. Right lower extremity CT without contrast showed low-density mass in the posteromedial thigh in adductor christiane muscle measuring 4.7 x 3.8 x 10.5, -03/11 CT lower extremity right Abscess remains in the medial posterior thigh, 5.0 x 2.9 x 10.2 cm -wound cx + MRSA - some concern for possible psoas infxn. Straight leg raise is limited given pain from abscess. Plan ?30cc pus drained by Dr. Arango for remnant abscess in the right medial posterior thigh. Surgical site intact, clean, with slight serosanguinous fluid draining. Tolerable pain. ?Filgrastim 300 mcg given per oncology recs ?d/c to Zosyn 2.25 g - cont doxycycline 100 IV twice daily for MRSA coverage , plan for discharge on doxy PO BID ?Urine culture grew Pseudomonas sensitive (Zosyn 1-week treatment completed) - Postop pain management: dilaudid 0.5 q4h prn , apap 650 q6h PRN # ESTELLA on CKD stage IV, Cr downtrending (Cr:2.0 2.1) -Possible cardiorenal syndrome Initial labs: BUN 65, creatinine 2.1 Patient's baseline creatinine usually 1.5-1.8 Given 1 L normal saline in ED Patient has a history of HFrEF, important not to overload patient with IVF Plan: - Continue to monitor with CMP daily - Avoid nephrotoxic agents -small volume IVF bolus PRN - Albumin 25 g given x 1 #Metabolic encephalopathy vs Delirium- Resolved Pt found more confused at bedside this morning per and nursing staff. Favor post op delirium, cont to treat pain appropriately and orient pt regularly. - Follow up on daily labs - Melatonin 5-10 mg QHS per neuro recs. - treat pain appropriately, see #RLE abscess above - Have regular day and night schedule - Include family members or familiar people in patient care - Blood Cx 1/2 GPC, f/u repeat Bcx tomorrow - Ucx negative to date. # Hyperkalemia- resolved Potassium: wnl ? Kayexalate x 1 #NAGMA- -Possible diarrhoea -Patient had passage of loose stools in previous days -Continue Bicitra BID - Follow up on daily labs #Hyoptension -In setting of HFrEF ef 10-15% and MDS - Patient blood pressure is around 97/54 Plan: -Continue midodrine 10 mg 3 times daily -IV fluids were given initially during admission -IV albumin 25 g x 1 #UCx Psuedomonal - treatment completed - Zosyn stopped today 03/14/25. Pt has been on Zosyn for 1 week for Urine Pseudomona treatment. #Speech Stuttering #Essential tremors #? 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 ? Ammonia level less than 10, B12 1762, folate within normal limits. TSH 10.93. ?thiamine 9 and free T4 1.30 Plan: -buspirone 7.5 3 times daily for anxiety, tolerating dose increase well. -Speech therapy recommended Chopped food to optimize independence with meals. -Consulted neurology for further recommendations ?Neurology is following the case. Neurology considerations are likely related to stress-induced tremor and stuter/psychogenic, medication induced parkinsonism, cerebellar CVA, vitamin deficiency, electrolyte abnormality ? Follow-up with thyroid functions in 4 to 6 weeks #Subclinical hypothyroidism - Patient is already on levothyroxine 25 mcg - TSH 10.93, free T4 1.30 Plan: -Increase of dose of levothyroxine to 50 mcg # HFrEF, EF 10 to 15% # Hx Hypertension TTE 02/16/25: LVEF 10 to 15% Home meds (per 02/24/25 discharge summary): Carvedilol 3.215 mg PO BID, Entresto 0.5 mg PO BID, Midodrine 10 mg PO TID BP in ED: sBP 93-107 / dBP 52-57 Initial labs: BNP elevated 2003 Initial chest x-ray showed vascular congestion. Right upper extremity Doppler negative for DVT Plan: - Resume home Coreg - Continue midodrine. Continue to monitor on telemetry, can hold Coreg if hypotensive (BP < 90/70) - Hold Entresto (2/2 ESTELLA) - Fluid restrictions - 1.5 L / day - Daily weights - Strict I&Os - Careful hydration #Elevated Vitamin B12 - Vitamin B12 1762 Plan: -Outpatient follow-up # Prolonged QTc Initial EKG showed QTc 531 Plan: - Continue to monitor on telemetry - Avoid QTc prolonging agents - replete electrolytes as necessary # Left buttock erythema Plan: - Frequent turns, continue to monitor - Wound care # Benign prostatic hypertrophy Tx - Continue home Tamsulosin 0.4 mg PO daily #Right lower extremity swelling concerning for DVT-R/0 On exam right ankle and foot were swollen compared to left Dx -Right lower extremity DVT ultrasound: No DVT #Loose bowel movements x 4-resolved Patient has reported 4 loose bowel movements yesterday, consider loose stools secondary to filgastram side effects versus antibiotic associated diarrhea given patient continues on Zosyn for right medial thigh abscess No loose stools today -Consider C. difficile PCR if loose bowel movements continue -CTM BMs #Left hand itchiness- Resolved Patient reported that after IV placement on left hand that he was experiencing itchiness, consider dermatitis to adhesive used for IV ? Topical Benadryl cream as needed to affected areas Dispo: Plan for home with home health patient family requesting help with hospital bed,Bcx 1/2 with GPC, cont on iv doxy, pending repeat bcx tomorrow. DVT prophylaxis: SCDs GI prophylaxis: Protonix 20 Diet: Cardiac Diet Lines: Peripheral IV, condom catheter Code status: Full code Case discussed with my senior resident Dr. Balbuena Case discussed with my attending Dr. Jorge Hoang MD PGY-1 Attending Provider Attestation/Addendum Kamilal Sommers, , attest that I was physically present for the kulkarni portions of the service and evaluated the patient with the resident and I reviewed and discussed the case with the resident and agree with the resident's findings and plans of care as documented above Patient seen and evaluated this AM. at bedside. Patient remains very weak, but wishes for patient to return home as they have home health and 24hr care. does not wish for patient to go to SNF. Patient is max assist. Mental status improved. Wound appears to be healing well. Wound nurse and bedside nurse present at time of evaluation. No edema noted on extremities. Plan for discharge home with home health. However, patient noted to have 1/2 GPC in blood cultures. Patient is otherwise afebrile. Will give loading dose of vancomycin and repeat bcx.
--- NOTE | 2025-03-17 15:36 | PC.SS ---
SWEATBAND SEPARATOR notified by resident that patient's discharge being held due to blood cultures indicating presence of gram positive cocci. SWEATBAND SEPARATOR contacted transport to cancel 6:30 trip.
[2025-03-17] MEDS: VANCOMYCIN/WATER 1250 MG IVPB 250 ML 120 MG IV (18:19)
[2025-03-17] MEDS: MELATONIN 3 MG TABLET 5 MG PO (21:34)
[2025-03-18] VITALS (11 sets, daily range): BP systolic 102–124; BP diastolic 63–85; PULSE 75–102; RESP 16–94; TEMP 36.1–36.9; O2SAT 94–99; BMI 12.0
[2025-03-18] MEDS: LEVOTHYROXINE SODIUM 25 MCG TABLET 50 MCG PO (05:32)
[2025-03-18] MEDS: MIDODRINE 5 MG TABLET 10 MG PO ×2 (05:32→21:49)
[2025-03-18 05:39] LABS: Basophils # (Auto) 0.0 Thou/mm3 (0.0-0.2); Basophils % (Auto) 2 % (0-2.5); Eosinophils # (Auto) 0.0 Thou/mm3 (0.0-0.5); Eosinophils % (Auto) 2 % (0-10); Hematocrit 24.2 % (41.0-53.0); Immature Granulocytes Auto 0.03 Thou/mm3 (0.00-0.00); Lymphocytes # (Auto) 0.3 Thou/mm3 (1.0-4.8); Lymphocytes % (Auto) 66 % (10-50); Mean Corpuscular HGB Conc 33.5 g/dl (31.0-37.0); Mean Corpuscular Hemoglobin 28.6 pg (25.0-35.0); Mean Corpuscular Volume 86 fL (80-100); Monocytes # (Auto) 0.0 Thou/mm3 (0.0-0.8); Monocytes % (Auto) 6 % (0-12); Neutrophils # (Auto) 0.1 Thou/mm3 (1.8-7.7); Neutrophils % (Auto) 18 % (37-80); Nucleated Red Blood Cell # 0.00 Thou/mm3 (0.00-0.00); Nucleated Red Blood Cell % 0 /100 WBC (0); RDW Standard Deviation 52.2 fL (35.1-43.9); Red Blood Count 2.83 Miln/mm3 (4.50-5.90)
[2025-03-18 06:11] LABS: Hemoglobin 8.1 g/dL (13.5-16.0); White Blood Count 0.5 Thou/mm3 (3.8-10.6)
[2025-03-18 06:12] LABS: Anion Gap 10 (7-16); BUN/Creatinine Ratio 32 Ratio (12-20); Bilirubin,Total 0.8 mg/dL (0.3-1.2); Blood Urea Nitrogen 60 mg/dL (9-23); Calcium 9.2 mg/dL (8.3-10.6); Carbon Dioxide 21.8 mMol/L (20.0-31.0); Chloride 114 mMol/L (98-107); Creatinine (Component) 1.9 mg/dL (0.6-1.3); Estimated Creatinine Clearance 24.7 mL/min (>60); Glucose 128 mg/dL (74-106); Magnesium 2.3 mg/dL (1.6-2.6); Osmolality,Calculated 309 (275-295); Phosphorous 4.1 mg/dL (2.4-5.1); Platelet Count 21 Thou/mm3 (140-440); Potassium 4.2 mMol/L (3.4-5.1); Sodium 146 mMol/L (136-145); eGFR 34 See Note
[2025-03-18 06:13] LABS: Alanine Aminotransferase 56 U/L (10-49); Albumin, Serum 2.5 gm/dL (3.4-4.8); Albumin/Globulin Ratio 0.5 (1.2-2.2); Alkaline Phosphatase 68 U/L (46-116); Aspartate Amino Transferase 31 U/L (0-34); Calcium (Corrected) 10.4 mg/dL (8.5-10.1); Globulin 5.2 gm/dL (2.3-3.5); Total Protein 7.7 gm/dL (5.7-8.2)
[2025-03-18 07:44] LABS: Slide Review Platelets confirmed
[2025-03-18 08:01] LABS: Vancomycin,Random 72.3 mcg/mL
[2025-03-18] MEDS: CITRIC ACID/SODIUM CITR 15 ML UDC (BICITRA) 30 ML PO ×2 (08:58→21:48)
[2025-03-18] MEDS: PANTOPRAZOLE 20 MG TABLET PO (08:59)
[2025-03-18] MEDS: TAMSULOSIN HCL 0.4 MG CAPSULE PO (08:59)
[2025-03-18] MEDS: HYDROmorphone INJ 2 MG/ML VIAL 0.5 MG IVP (09:36)
--- NOTE | 2025-03-18 12:44 | PC.SS ---
Update: Plan is to repeat blood cultures.
--- NOTE | 2025-03-18 14:23 | PC.SS ---
Rounding Note: Plan is to repeat blood cultures.
--- NOTE | 2025-03-18 15:10 | ESPR_ITS ---
<Statement entered by Devonte Balbuena MD - 03/18/25 17:18> Patient was seen and examined at the bedside. No acute overnight events reported. Patient appears delirious due to lack of sleep. Surgical wound around medial thigh appears mildly tender however no overt pus was seen. Currently awaiting repeat blood cultures. Continue with vancomycin. Strict delirium precautions with sleep hygiene at night. If patient appears to be in distress agreeable to give IV Dilaudid 0.5 mg Q2 hourly as needed and maintaining sleep at night since patient is not able to rest. I discussed and supervised with the industrial engineering intern physician who took care of this patient. I personally saw and examined the patient. I agree with most of the assessment and plan. Disclaimer: Despite multiple revisions, due to the dictation software being used, the document bellow may not be free of grammatical errors including phonetic/typographic errors. However, this does not deter from our commitment to providing health care in the patient's best interest in mind. Plan of care discussed with attending Physician Dr. Jorge Balbuena MD PGY-3 Documentation for date of: 03/18/25 Subjective Subjective Interval history: No overnight events. Evaluated at bedside. Pt appears delirious, a/ox1, inattention, and having disorganized thoughts. Surgical site to right medial thigh packed with dressing and have minimal serosanguinous drainage, however, does feel tender with palpation near I&D site. Per at bedside, pt does not have much appetite and had not been eating much. She does not want him to be tube fed, nor does she want him to be discharged to a SNF. Continue to monitor nutrition status. Exam Vital Signs Temp Pulse Resp BP Pulse Ox O2 Del Method O2 Flow Rate 97.0 F 88 22 H 124/65 99 Room Air 1 03/18/25 12:00 03/18/25 13:18 03/18/25 13:18 03/18/25 12:00 03/18/25 12:00 03/18/25 12:00 03/17/25 00:00 Narrative Exam GENERAL APPEARANCE: Elderly frail-appearing male with occasional stutter speech in no acute distress. A&O x 1, appears delirious HEENT: NC, AT. Dry mucous membrane. EOMI, clear conjunctiva, oropharynx clear. NECK: No stiffness or restricted ROM. HEART: Regular rate and regular rhythm with KIT PLANNER-D, normal S1/S2, no m/r/g LUNGS: CTAB, moving air well. No crackles or wheezes are heard. Tachypnic at baseline ABDOMEN: Soft, nontender, nondistended with good bowel sounds heard. , condom cath in place, and diaper on top. BACK: No CVAT, no obvious deformity. EXTREMITIES: upper extremity tremors noted to be less than prior, no resting tremor, LLE edema of ankle and foot. (DVT negative US ) NEUROLOGICAL: Grossly nonfocal. Alert and oriented, moving all 4 extremities. Patient has action tremor no resting tremor noted. CN not formally tested but appear grossly intact. Stuttering with speech occasionally Skin: Right medial thigh surgical incision site intact, clean, dressing in place packed Psych: Stuttering speech (much improved from yesterday Objective Labs 03/19/25 05:37 03/19/25 13:41 Labs: Laboratory Results - last 24 hr 03/18/25 05:12 WBC 0.5 L* RBC 2.83 L Hgb 8.1 L Hct 24.2 L MCV 86 MCH 28.6 MCHC 33.5 RDW Std Deviation 52.2 H Plt Count 21 L* Neut % (Auto) 18 L Lymph % (Auto) 66 H Ware % (Auto) 6 Eos % (Auto) 2 Baso % (Auto) 2 Neut # (Auto) 0.1 L Lymph # (Auto) 0.3 L Ware # (Auto) 0.0 Eos # (Auto) 0.0 Baso # (Auto) 0.0 Immature Gran # (Auto) 0.03 H Absolute Nucleated RBC 0.00 Immature Gran % 6 H Nucleated RBC % 0 Sodium 146 H Potassium 4.2 Chloride 114 H Carbon Dioxide 21.8 Anion Gap 10 BUN 60 H Creatinine 1.9 H Estim Creat Clear Calc 24.7 L eGFR 34 L BUN/Creatinine Ratio 32 H Glucose 128 H Calculated Osmolality 309 H Calcium 9.2 Corrected Calcium 10.4 H Phosphorus 4.1 Magnesium 2.3 Total Bilirubin 0.8 AST 31 ALT 56 H Alkaline Phosphatase 68 Total Protein 7.7 Albumin 2.5 L Globulin 5.2 H Albumin/Globulin Ratio 0.5 L Random Vancomycin 72.3 Misc Test Result Platelets confirmed Quality Measures Quality Measures VTE prophylaxis and sepsis Current suspected stage: sepsis Possible source: skin/soft tissue Blood cultures ordered: yes Antibiotic ordered: Yes Advance care planning discussed with:: patient Assessment & Plan Assessment Current Active Medications: Generic Name Dose Route Start Last Admin Trade Name Freq PRN Reason Stop Dose Admin Acetaminophen 650 mg 03/06/25 21:49 Acetaminophen 325 Mg Tablet PO 04/05/25 21:48 Q6H PRN Fever > 100.3 or pain Protocol Buspirone HCl 5 mg 03/18/25 14:00 Buspirone Hcl 5 Mg Tablet PO 04/17/25 13:59 TID PRASANTH Carvedilol 3.125 mg 03/18/25 17:30 Carvedilol 3.125 Mg Tablet PO 04/17/25 17:29 BIDWM PRASANTH Citric Acid/Sodium Citrate 30 ml 03/13/25 21:00 03/18/25 08:58 Citric Acid/Sodium Citr 15 Ml Udc (Bicitra) PO 04/12/25 20:59 30 ml BID PRASANTH Administration Hydromorphone HCl 0.5 mg 03/18/25 12:05 Hydromorphone Inj 2 Mg/Ml Vial IVP 03/23/25 09:59 Q4HR PRN Pain Scale 4-10(Mod-Sev Levothyroxine Sodium 50 mcg 03/10/25 06:00 03/18/25 05:32 Levothyroxine Sodium 25 Mcg Tablet PO 04/09/25 05:59 50 mcg ACBR PRASANTH Administration Melatonin 5 mg 03/15/25 21:00 03/17/25 21:34 Melatonin 3 Mg Tablet PO 04/14/25 20:59 5 mg HS PRASANTH Administration Midodrine 10 mg 03/07/25 06:00 03/18/25 05:32 Midodrine 5 Mg Tablet PO 04/06/25 05:59 10 mg TID PRASANTH Administration Ondansetron HCl 4 mg 03/06/25 21:54 Ondansetron Inj 2 Mg/Ml Inj 2 Ml IVP 04/05/25 21:53 Q6H PRN NAUSEA OR VOMITING Protocol Pantoprazole Sodium 20 mg 03/10/25 09:00 03/18/25 08:59 Pantoprazole 20 Mg Tablet PO 04/09/25 08:59 20 mg QDAY PRASANTH Administration Protocol Pharmacy Consult 1 each 03/17/25 17:45 03/18/25 05:35 Vancomycin Pharmacy To Dose 1 Each Each IV 04/16/25 17:44 Not Given QDAY PRASANTH Sennosides 2 tab 03/13/25 09:00 03/18/25 08:59 Senna Tablet PO 04/12/25 08:59 2 tab QDAY PRASANTH Administration Protocol Tamsulosin HCl 0.4 mg 03/07/25 09:00 03/18/25 08:59 Tamsulosin Hcl 0.4 Mg Capsule PO 04/06/25 08:59 0.4 mg DAILY PRASANTH Administration Plan 89-year-old male with past medical history of HFrEF (LVEF 10 to 15%), CAD, s/p CABG x 4, hypertension, CKD stage IV, myelodysplastic syndrome on chemo and transfusions, hypothyroidism who presents to the ED with right lower extremity posteromedial abscess, status post I&D with surgery wound cultures positive for MRSA, continue on antibiotics, the lower extremity shows abscess remains in the medial posterior thigh 5 x 3 x 10 cm, per Dr. Epperson abscess is too big to drain, recommend surgery therefore plan for surgery with Dr. Austin. On 03/13, I&D was performed by Dr. Austin, 30cc of pus removed from right thigh. Incision site clear and intact. Urine Cx NGTD. PT reccomend SNF, however family and pt prefer home with . Bcx 1/2 with GPC on preliminary, d/c doxycycline 100mg BID, switch to vancomycin (pharmy to dose). pending repeat Bcx tomorrow. Decrease busprione dose from 7.5mg to 5mg. Continue to monitor nutrition status. #GPC bacteremia 1/2 Bx Dx -follow up speciation of Bcx with GPC -pending repeat Bcx 03/17 Tx -D/C IV doxy 100mg BID (see #RLE absecess below), switch to vancomycin (pharmacy to dose) on 03/17 # Pancytopenia # Myelodysplastic syndrome Initial labs: WBC 0.8, hemoglobin 9.1, hematocrit 26.7, platelet 35. MCV within normal limits Patient was on Azocitidine for myelodysplastic syndrome and requires frequent transfusions and Filgastrim Family informed that chemotherapy was held last week. Family has been thinking of hospice for the patient. ANC count 100, 03/09 - 1 unit of platelet was given before I&D - 3 additional units of platelets were given prior to second I&D procedure with Dr. Arango platelet levels at 48 Plan: -Follow-up CBC in a.m. 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 -Recommended to consider giving filgrastim and transfuse blood and give broad- spectrum antibiotics as necessary per oncology recs - Continue to monitor with CBC daily - Hold any anticoagulation due to low platelet count. DVT prophylaxis with SCDs only - Transfuse if hemoglobin < 7 - neutropenic precautions #Right lower extremity posterior medial abscess status post surgical I&D day 5 Patient initially developed right thigh fungal infection on 629 during previous hospitalization. Started on clotrimazole topical. Patient reports that he continued to apply the clotrimazole after discharge. Patient reports that he has noticed progressive swelling, redness, pain in this area. Physical exam showed nonfluctuant erythematous and warm area along the posterior medial aspect of the thigh. Right lower extremity CT without contrast showed low-density mass in the posteromedial thigh in adductor christiane muscle measuring 4.7 x 3.8 x 10.5, -03/11 CT lower extremity right Abscess remains in the medial posterior thigh, 5.0 x 2.9 x 10.2 cm -wound cx + MRSA - some concern for possible psoas infxn. Straight leg raise is limited given pain from abscess. Plan ?30cc pus drained by Dr. Arango for remnant abscess in the right medial posterior thigh. Surgical site intact, clean, with slight serosanguinous fluid draining. Tolerable pain. ?Filgrastim 300 mcg given per oncology recs ?d/c to Zosyn 2.25 g - d/c doxycycline 100 IV twice daily, switch to vancomycin for MRSA coverage ?Urine culture grew Pseudomonas sensitive (Zosyn 1-week treatment completed) - Postop pain management: dilaudid 0.5 q4h prn , apap 650 q6h PRN # ESTELLA on CKD stage IV, Cr downtrending (Cr:2.0 2.1) -Possible cardiorenal syndrome Initial labs: BUN 65, creatinine 2.1 Patient's baseline creatinine usually 1.5-1.8 Given 1 L normal saline in ED Patient has a history of HFrEF, important not to overload patient with IVF Plan: - Continue to monitor with CMP daily - Avoid nephrotoxic agents -small volume IVF bolus PRN - Albumin 25 g given x 1 #Metabolic encephalopathy vs Delirium- Resolved Pt found more confused at bedside this morning per and nursing staff. Favor post op delirium, cont to treat pain appropriately and orient pt regularly. - Follow up on daily labs - Melatonin 5-10 mg QHS per neuro recs. - treat pain appropriately, see #RLE abscess above - Have regular day and night schedule - Include family members or familiar people in patient care - Blood Cx 1/2 GPC,pending repeat Bcx 03/17 - Ucx negative to date. # Hyperkalemia- resolved Potassium: wnl ? Kayexalate x 1 #NAGMA- -Possible diarrhoea -Patient had passage of loose stools in previous days -Continue Bicitra BID - Follow up on daily labs #Hyoptension -In setting of HFrEF ef 10-15% and MDS - Patient blood pressure is around 97/54 Plan: -Continue midodrine 10 mg 3 times daily -IV fluids were given initially during admission -IV albumin 25 g x 1 #UCx Psuedomonal - treatment completed - Zosyn stopped today 03/14/25. Pt has been on Zosyn for 1 week for Urine Pseudomona treatment. #Speech Stuttering #Essential tremors #? 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 ? Ammonia level less than 10, B12 1762, folate within normal limits. TSH 10.93. ?thiamine 9 and free T4 1.30 Plan: -decrease buspirone dose from 7.5mg to 5mg, 3 times daily for anxiety, tolerating dose increase well. -Speech therapy recommended Chopped food to optimize independence with meals. -Consulted neurology for further recommendations ?Neurology is following the case. Neurology considerations are likely related to stress-induced tremor and stuter/psychogenic, medication induced parkinsonism, cerebellar CVA, vitamin deficiency, electrolyte abnormality ? Follow-up with thyroid functions in 4 to 6 weeks #Subclinical hypothyroidism - Patient is already on levothyroxine 25 mcg - TSH 10.93, free T4 1.30 Plan: -Increase of dose of levothyroxine to 50 mcg # HFrEF, EF 10 to 15% # Hx Hypertension TTE 02/16/25: LVEF 10 to 15% Home meds (per 02/24/25 discharge summary): Carvedilol 3.215 mg PO BID, Entresto 0.5 mg PO BID, Midodrine 10 mg PO TID BP in ED: sBP 93-107 / dBP 52-57 Initial labs: BNP elevated 2003 Initial chest x-ray showed vascular congestion. Right upper extremity Doppler negative for DVT Plan: - Resume home Coreg - Continue midodrine. Continue to monitor on telemetry, can hold Coreg if hypotensive (BP < 90/70) - Hold Entresto (2/2 ESTELLA) - Fluid restrictions - 1.5 L / day - Daily weights - Strict I&Os - Careful hydration #Elevated Vitamin B12 - Vitamin B12 1762 Plan: -Outpatient follow-up # Prolonged QTc Initial EKG showed QTc 531 Plan: - Continue to monitor on telemetry - Avoid QTc prolonging agents - replete electrolytes as necessary # Left buttock erythema Plan: - Frequent turns, continue to monitor - Wound care # Benign prostatic hypertrophy Tx - Continue home Tamsulosin 0.4 mg PO daily #Right lower extremity swelling concerning for DVT-R/0 On exam right ankle and foot were swollen compared to left Dx -Right lower extremity DVT ultrasound: No DVT #Loose bowel movements x 4-resolved Patient has reported 4 loose bowel movements yesterday, consider loose stools secondary to filgastram side effects versus antibiotic associated diarrhea given patient continues on Zosyn for right medial thigh abscess No loose stools today -Consider C. difficile PCR if loose bowel movements continue -CTM BMs #Left hand itchiness- Resolved Patient reported that after IV placement on left hand that he was experiencing itchiness, consider dermatitis to adhesive used for IV ? Topical Benadryl cream as needed to affected areas Dispo: Plan for home with home health patient family requesting help with hospital bed, Bcx 1/2 with GPC, cont on iv doxy, pending repeat bcx tomorrow. DVT prophylaxis: SCDs GI prophylaxis: Protonix 20 Diet: Cardiac Diet Lines: Peripheral IV, condom catheter Code status: Full code Case discussed with my senior resident Dr. Balbuena Case discussed with my attending Dr. Jorge Turner DO PGY-1 Attending Provider Attestation/Addendum Kamilla Sommers DO, attest that I was physically present for the kulkarni portions of the service and evaluated the patient with the resident and I reviewed and discussed the case with the resident and agree with the resident's findings and plans of care as documented above Patient seen and eval this a.m. Patient appears to be more delirious today suspect to be secondary to being restless. Patient is able to rest with Dilaudid and denies any active pain at this time. Will continue with pain control as needed. He denies any nausea or pain after receiving Dilaudid. He remains on vancomycin IV. Will follow-up with repeat blood cultures. There is no growth to date x 24 hours. Continue with current management otherwise.
[2025-03-18] MEDS: MELATONIN 3 MG TABLET 5 MG PO (21:49)
[2025-03-19] VITALS (18 sets, daily range): BP systolic 100–125; BP diastolic 60–90; PULSE 76–104; RESP 16–23; TEMP 36.2–36.7; O2SAT 94–100; BMI 23.6
[2025-03-19] MEDS: MIDODRINE 5 MG TABLET 10 MG PO ×3 (05:25→21:17)
[2025-03-19] MEDS: LEVOTHYROXINE SODIUM 25 MCG TABLET 50 MCG PO (05:25)
[2025-03-19 06:02] LABS: Basophils # (Auto) 0.0 Thou/mm3 (0.0-0.2); Basophils % (Auto) 2 % (0-2.5); Eosinophils # (Auto) 0.0 Thou/mm3 (0.0-0.5); Eosinophils % (Auto) 0 % (0-10); Hematocrit 24.5 % (41.0-53.0); Immature Granulocytes Auto 0.03 Thou/mm3 (0.00-0.00); Lymphocytes # (Auto) 0.4 Thou/mm3 (1.0-4.8); Lymphocytes % (Auto) 66 % (10-50); Mean Corpuscular HGB Conc 33.9 g/dl (31.0-37.0); Mean Corpuscular Hemoglobin 29.5 pg (25.0-35.0); Mean Corpuscular Volume 87 fL (80-100); Monocytes # (Auto) 0.0 Thou/mm3 (0.0-0.8); Monocytes % (Auto) 6 % (0-12); Neutrophils # (Auto) 0.1 Thou/mm3 (1.8-7.7); Neutrophils % (Auto) 22 % (37-80); Nucleated Red Blood Cell # 0.00 Thou/mm3 (0.00-0.00); Nucleated Red Blood Cell % 0 /100 WBC (0); RDW Standard Deviation 53.6 fL (35.1-43.9); Red Blood Count 2.81 Miln/mm3 (4.50-5.90)
[2025-03-19 06:19] LABS: Hemoglobin 8.3 g/dL (13.5-16.0); Platelet Count 22 Thou/mm3 (140-440); White Blood Count 0.7 Thou/mm3 (3.8-10.6)
[2025-03-19 06:29] LABS: Alanine Aminotransferase 62 U/L (10-49); Albumin, Serum 2.6 gm/dL (3.4-4.8); Albumin/Globulin Ratio 0.5 (1.2-2.2); Alkaline Phosphatase 68 U/L (46-116); Anion Gap 11 (7-16); Aspartate Amino Transferase 31 U/L (0-34); BUN/Creatinine Ratio 32 Ratio (12-20); Bilirubin,Total 0.9 mg/dL (0.3-1.2); Blood Urea Nitrogen 64 mg/dL (9-23); Calcium 9.3 mg/dL (8.3-10.6); Calcium (Corrected) 10.4 mg/dL (8.5-10.1); Carbon Dioxide 22.9 mMol/L (20.0-31.0); Chloride 114 mMol/L (98-107); Creatinine (Component) 2.0 mg/dL (0.6-1.3); Estimated Creatinine Clearance 23.5 mL/min (>60); Globulin 5.4 gm/dL (2.3-3.5); Glucose 126 mg/dL (74-106); Magnesium 2.2 mg/dL (1.6-2.6); Osmolality,Calculated 314 (275-295); Phosphorous 4.8 mg/dL (2.4-5.1); Potassium 4.5 mMol/L (3.4-5.1); Sodium 148 mMol/L (136-145); Total Protein 8.0 gm/dL (5.7-8.2); Vancomycin,Random 58.9 mcg/mL; eGFR 32 See Note
--- NOTE | 2025-03-19 07:21 | ESPR_ITS ---
<Statement entered by Devonte Balbuena MD - 03/19/25 17:11> Patient was seen and examined at the bedside. Patient appeared delirious and was having difficulty in speaking with extreme weakness and was tachypneic. Patient was extremely tender to palpation. CT chest abdomen pelvis was ordered which showed right-sided pleural effusion. Plan to do thoracentesis tomorrow. Family was notified. Lactic acid was normal. Continuing D5W at 40 cc/h due to mild hypernatremia and hyperchloremia. ABGs were unremarkable. Head CT showed no acute changes. IV Tylenol for pain. Continue delirium precautions. I discussed and supervised with the international flight attendant physician who took care of this patient. I personally saw and examined the patient. I agree with most of the assessment and plan. Disclaimer: Despite multiple revisions, due to the dictation software being used, the document bellow may not be free of grammatical errors including phonetic/typographic errors. However, this does not deter from our commitment to providing health care in the patient's best interest in mind. Plan of care discussed with attending Physician Dr. robert Balbuena MD PGY-3 Documentation for date of: 03/19/25 Subjective Subjective Interval history: No acute events overnight pt with worsened tachypnea than prior baseline, and very tender abdomen increased delerium, unable to answer questions NCHCT negative CTchest and AP with Large right pulm effusion, spoke to dr. Jimenez about possible thoracenteis tomorrow transfuse 1unit PLT tonight and pending coag panel in the AM Exam Vital Signs Temp Pulse Resp BP Pulse Ox O2 Del Method O2 Flow Rate 97.4 F 102 H 16 125/90 H 98 Room Air 1 03/19/25 03:32 03/19/25 05:25 03/19/25 03:32 03/19/25 05:25 03/19/25 03:32 03/19/25 03:32 03/17/25 00:00 Narrative Exam GENERAL APPEARANCE: Elderly frail-appearing male worsening of stutter on exam today, severely delirius, unable to answer questions or respond appropriately to commands, appears in mild dystress, HEENT: NC, AT. Dry mucous membrane. EOMI, clear conjunctiva, oropharynx clear. HEART: Regular rate and regular rhythm with DIRECTOR OF SALES MARKETING-D, normal S1/S2, no m/r/g LUNGS: decreased breath sounds on R lung santoyo. tachypnic ABDOMEN: Soft, tender with voluntary guarding to palpation , nondistended with good bowel sounds heard. , condom cath in place, and diaper on top. BACK: No CVAT, no obvious deformity. EXTREMITIES: upper extremity tremors noted to be less than prior, no resting tremor, LLE edema of ankle and foot. (DVT negative US ) NEUROLOGICAL: difficult to assess, some acute change in mental status and ability to respond and follow commands, moving extremities spontaneously. Skin: Right medial thigh surgical incision site intact, clean, dressing in place packed Objective Labs 03/19/25 05:37 03/19/25 13:41 Labs: Laboratory Results - last 24 hr 03/18/25 03/19/25 05:12 05:37 WBC 0.7 L* RBC 2.81 L Hgb 8.3 L Hct 24.5 L MCV 87 MCH 29.5 MCHC 33.9 RDW Std Deviation 53.6 H Plt Count 22 L* Neut % (Auto) 22 L Lymph % (Auto) 66 H [place] % (Auto) 6 Eos % (Auto) 0 Baso % (Auto) 2 Neut # (Auto) 0.1 L Lymph # (Auto) 0.4 L [place] # (Auto) 0.0 Eos # (Auto) 0.0 Baso # (Auto) 0.0 Immature Gran # (Auto) 0.03 H Absolute Nucleated RBC 0.00 Immature Gran % 5 H Nucleated RBC % 0 Sodium 148 H Potassium 4.5 Chloride 114 H Carbon Dioxide 22.9 Anion Gap 11 BUN 64 H Creatinine 2.0 H Estim Creat Clear Calc 23.5 L eGFR 32 L BUN/Creatinine Ratio 32 H Glucose 126 H Calculated Osmolality 314 H Calcium 9.3 Corrected Calcium 10.4 H Phosphorus 4.8 Magnesium 2.2 Total Bilirubin 0.9 AST 31 ALT 62 H Alkaline Phosphatase 68 Total Protein 8.0 Albumin 2.6 L Globulin 5.4 H Albumin/Globulin Ratio 0.5 L Random Vancomycin 72.3 58.9 Misc Test Result Platelets confirmed Quality Measures Quality Measures VTE prophylaxis and sepsis Current suspected stage: sepsis Possible source: skin/soft tissue Blood cultures ordered: yes Antibiotic ordered: Yes Advance care planning discussed with:: patient and child Assessment & Plan Assessment Current Active Medications: Generic Name Dose Route Start Last Admin Trade Name Freq PRN Reason Stop Dose Admin Acetaminophen 650 mg 07/11/25 21:49 Acetaminophen 325 Mg Tablet PO 04/05/25 21:48 Q6H PRN Fever > 100.3 or pain Protocol Buspirone HCl 5 mg 03/18/25 14:00 03/19/25 05:25 Buspirone Hcl 5 Mg Tablet PO 04/17/25 13:59 5 mg TID PRASANTH Administration Carvedilol 3.125 mg 03/18/25 17:30 03/18/25 18:20 Carvedilol 3.125 Mg Tablet PO 04/17/25 17:29 Not Given BIDWM PRASANTH Citric Acid/Sodium Citrate 30 ml 03/13/25 21:00 03/18/25 21:48 Citric Acid/Sodium Citr 15 Ml Udc (Bicitra) PO 04/12/25 20:59 30 ml BID PRASANTH Administration Hydromorphone HCl 0.5 mg 03/18/25 12:05 Hydromorphone Inj 2 Mg/Ml Vial IVP 03/23/25 09:59 Q4HR PRN Pain Scale 4-10(Mod-Sev Levothyroxine Sodium 50 mcg 03/10/25 06:00 03/19/25 05:25 Levothyroxine Sodium 25 Mcg Tablet PO 04/09/25 05:59 50 mcg ACBR PRASANTH Administration Melatonin 5 mg 03/15/25 21:00 03/18/25 21:49 Melatonin 3 Mg Tablet PO 04/14/25 20:59 5 mg HS PRASANTH Administration Midodrine 10 mg 03/07/25 06:00 03/19/25 05:25 Midodrine 5 Mg Tablet PO 04/06/25 05:59 10 mg TID PRASANTH Administration Ondansetron HCl 4 mg 03/06/25 21:54 Ondansetron Inj 2 Mg/Ml Inj 2 Ml IVP 04/05/25 21:53 Q6H PRN NAUSEA OR VOMITING Protocol Pantoprazole Sodium 20 mg 03/10/25 09:00 03/18/25 08:59 Pantoprazole 20 Mg Tablet PO 04/09/25 08:59 20 mg QDAY PRASANTH Administration Protocol Pharmacy Consult 1 each 03/17/25 17:45 03/18/25 15:13 Vancomycin Pharmacy To Dose 1 Each Each IV 04/16/25 17:44 Not Given QDAY PRASANTH Sennosides 2 tab 03/13/25 09:00 03/18/25 08:59 Senna Tablet PO 04/12/25 08:59 2 tab QDAY PRASANTH Administration Protocol Tamsulosin HCl 0.4 mg 03/07/25 09:00 03/18/25 08:59 Tamsulosin Hcl 0.4 Mg Capsule PO 04/06/25 08:59 0.4 mg DAILY PRASANTH Administration Plan 89-year-old male with past medical history of HFrEF (LVEF 10 to 15%), CAD, s/p CABG x 4, hypertension, CKD stage IV, myelodysplastic syndrome on chemo and transfusions, hypothyroidism who presents to the ED with right lower extremity posteromedial abscess, status post I&D with surgery wound cultures positive for MRSA, continue on antibiotics, the lower extremity shows abscess remains in the medial posterior thigh 5 x 3 x 10 cm, per Dr. Epperson abscess is too big to drain, recommend surgery therefore plan for surgery with Dr. Austin. On 03/13, I&D was performed by Dr. Austin, 30cc of pus removed from right thigh. Incision site clear and intact. Urine Cx NGTD. PT reccomend SNF, however family and pt prefer home with HH. Bcx 1/2 with GPR, restart doxycycline 100mg BID, d/c to vancomycin (given Bcx 1/2 contaminant with GPR). pending repeat Bcx .glucose checks q6hr given c/f hypoglycemia iso poor PO intake. worsening of delirium, NCHCT negative, CTchest with Large R Pleural effusion pending possible thora tomorrow with Dr. Jimenez, PLT transfusion tonight, and coag panel in the AM. Discussed results of CT chest with son. #Large R Pleural Effusion pt with worsening tachypnia to 38, up from his baseline. plan for 1 unit plt and coag checks prior to possible thoracentesis tomorrow. (see #pancytopenia) Dx - CT chest,AP: with large R pleural effusion Tx - possible thoracentesis tomorrow. Dr. Jimenez to evaluate #Metabolic encephalopathy vs Delirium Pt found more confused at bedside this morning per and nursing staff. Favor post op delirium, cont to treat pain appropriately and orient pt regularly. Dx - NCHCT negative - Blood glucose checks q6hr given poor po intake and c/f hypoglycemia Tx - Follow up on daily labs - Melatonin 5-10 mg QHS per neuro recs. - treat pain appropriately, see #RLE abscess - Have regular day and night schedule - Include family members or familiar people in patient care - Blood Cx 1/2 GPR, d/c vanc, repeat bcx NGTD @48 hr. - Ucx negative to date. #Hypernatremia Na 148, FWD 1.9 L pt with minimal po intake, possibly 2/2 #delirium. given #HFrEF with ef 10-15%, cautious to volume overload. Dx - f.u am Na labs Tx - d5w, 40ml/hr , was d/c given c/f volume overload and worsened tachypnea # Pancytopenia # Myelodysplastic syndrome Initial labs: WBC 0.8, hemoglobin 9.1, hematocrit 26.7, platelet 35. MCV within normal limits Patient was on Azocitidine for myelodysplastic syndrome and requires frequent transfusions and Filgastrim Family informed that chemotherapy was held last week. Family has been thinking of hospice for the patient. ANC count 100, 03/09 - 1 unit of platelet was given before I&D - 3 additional units of platelets were given prior to second I&D procedure with Dr. Arango platelet levels at 48 Plan: -Follow-up CBC in a.m. - Transfuse 1 unit PLT 03/19 pending possible thora 03/[address] 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 -Recommended to consider giving filgrastim and transfuse blood and give broad- spectrum antibiotics as necessary per oncology recs - Hold any anticoagulation due to low platelet count. DVT prophylaxis with SCDs only - Transfuse if hemoglobin < 7 - neutropenic precautions #GPR bacteremia 1/2 Bx (previously reported as GPC) Dx -Bcx 03/17 NGTD @ 48 hr Tx - D/c vancomycin (pharmacy to dose) on (03/17-03/19) #Right lower extremity posterior medial abscess status post surgical I&D day 6 Patient initially developed right thigh fungal infection on 629 during previous hospitalization. Started on clotrimazole topical. Patient reports that he continued to apply the clotrimazole after discharge. Patient reports that he has noticed progressive swelling, redness, pain in this area. Physical exam showed nonfluctuant erythematous and warm area along the posterior medial aspect of the thigh. Right lower extremity CT without contrast showed low-density mass in the posteromedial thigh in adductor christiane muscle measuring 4.7 x 3.8 x 10.5, -03/11 CT lower extremity right Abscess remains in the medial posterior thigh, 5.0 x 2.9 x 10.2 cm -wound cx + MRSA - some concern for possible psoas infxn. Straight leg raise is limited given pain from abscess. Plan ?30cc pus drained by Dr. Arango for remnant abscess in the right medial posterior thigh. Surgical site intact, clean, with slight serosanguinous fluid draining. Tolerable pain. ?Filgrastim 300 mcg given per oncology recs ?d/c to Zosyn 2.25 g - Restart doxycycline 100 IV twice daily, D/c vancomycin for prelim bcx result initialy reported as gpc, and later GPR (likely contaminant), repeat bcx NGTD. - Postop pain management: IV APAP sched, and dilaudid 0.5mg q4hr prn # ESTELLA on CKD stage IV, Cr downtrending (Cr:2.0 2.1) -Possible cardiorenal syndrome Initial labs: BUN 65, creatinine 2.1 Patient's baseline creatinine usually 1.5-1.8 Given 1 L normal saline in ED Patient has a history of HFrEF, important not to overload patient with IVF Plan: - Continue to monitor with CMP daily - Avoid nephrotoxic agents -small volume IVF bolus PRN - Albumin 25 g given x 1 # Hyperkalemia- resolved Potassium: wnl ? Kayexalate x 1 #NAGMA- -Possible diarrhoea -Patient had passage of loose stools in previous days -Continue Bicitra BID - Follow up on daily labs #Hyoptension -In setting of HFrEF ef 10-15% and MDS - Patient blood pressure is around 97/54 Plan: -Continue midodrine 10 mg 3 times daily -IV fluids were given initially during admission -IV albumin 25 g x 1 #UCx Psuedomonal - treatment completed - Zosyn stopped today 03/14/25. Pt has been on Zosyn for 1 week for Urine Pseudomona treatment. #Speech Stuttering #Essential tremors #? 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 ? Ammonia level less than 10, B12 1762, folate within normal limits. TSH 10.93. ?thiamine 9 and free T4 1.30 Plan: -decrease buspirone dose from 7.5mg to 5mg, 3 times daily for anxiety, tolerating dose increase well. -Speech therapy recommended Chopped food to optimize independence with meals. -Consulted neurology for further recommendations ?Neurology is following the case. Neurology considerations are likely related to stress-induced tremor and stuter/psychogenic, medication induced parkinsonism, cerebellar CVA, vitamin deficiency, electrolyte abnormality ? Follow-up with thyroid functions in 4 to 6 weeks #Subclinical hypothyroidism - Patient is already on levothyroxine 25 mcg - TSH 10.93, free T4 1.30 Plan: -Increase of dose of levothyroxine to 50 mcg # HFrEF, EF 10 to 15% # Hx Hypertension TTE 02/16/25: LVEF 10 to 15% Home meds (per 02/24/25 discharge summary): Carvedilol 3.215 mg PO BID, Entresto 0.5 mg PO BID, Midodrine 10 mg PO TID BP in ED: sBP 93-107 / dBP 52-57 Initial labs: BNP elevated 2003 Initial chest x-ray showed vascular congestion. Right upper extremity Doppler negative for DVT Plan: - Resume home Coreg - Continue midodrine. Continue to monitor on telemetry, can hold Coreg if hypotensive (BP < 90/70) - Hold Entresto (2/2 ESTELLA) - Fluid restrictions - 1.5 L / day - Daily weights - Strict I&Os - Careful hydration #Elevated Vitamin B12 - Vitamin B12 1762 Plan: -Outpatient follow-up # Prolonged QTc Initial EKG showed QTc 531 Plan: - Continue to monitor on telemetry - Avoid QTc prolonging agents - replete electrolytes as necessary # Left buttock erythema Plan: - Frequent turns, continue to monitor - Wound care # Benign prostatic hypertrophy Tx - Continue home Tamsulosin 0.4 mg PO daily #Right lower extremity swelling concerning for DVT-R/0 On exam right ankle and foot were swollen compared to left Dx -Right lower extremity DVT ultrasound: No DVT #Loose bowel movements x 4-resolved Patient has reported 4 loose bowel movements yesterday, consider loose stools secondary to filgastram side effects versus antibiotic associated diarrhea given patient continues on Zosyn for right medial thigh abscess No loose stools today -Consider C. difficile PCR if loose bowel movements continue -CTM BMs #Left hand itchiness- Resolved Patient reported that after IV placement on left hand that he was experiencing itchiness, consider dermatitis to adhesive used for IV ? Topical Benadryl cream as needed to affected areas Dispo: Plan for home with home health patient family requesting help with hospital bed, Bcx 1/2 with GPR, d/c vanc, restart doxy bid, bcx repeat ngtd @48hr. large R Pleural effusion, possible thora tomorrow. DVT prophylaxis: SCDs GI prophylaxis: Protonix 20 Diet: Cardiac Diet Dysphagia advanced, boost plus TID with meals pt with minimal PO intake, q6hr glucose checks. Lines: Peripheral IV, condom catheter Code status: Full code Case discussed with my senior resident Dr. Balbuena Case discussed with my attending Dr. Robert Hoang MD PGY-1 Attending Provider Attestation/Addendum I, Kamilla Patel, DO, attest that I was physically present for the kulkarni portions of the service and evaluated the patient with the resident and I reviewed and discussed the case with the resident and agree with the resident's findings and plans of care as documented above Patient seen and eval this a.m. Patient is much more delirious today and stuttering his speech. Due to persistent confusion, head CT was done and does not show any acute intracranial findings. Blood gas shows some hypoxia due to SPO2 of 89 on 4 L nasal cannula. Patient is tachypneic. A chest abdomen pelvis CT was subsequently done as patient was noted to have some tenderness to palpation in suprapubic region. CT shows large right pleural effusion and mild to moderate ascites. Will give 1 dose of Lasix with albumin. Will transfuse platelets in anticipation of thorascentesis. Repeat blood cultures have been no growth to date x 48 hours. Initial blood cultures positive for GPR, likely contamination. Will discontinue vancomycin and switch to doxycycline at this time. Patients prognosis is guarded. Family at bedside updated regarding plan of care.
[2025-03-19 07:52] LABS: Slide Review Platelets confirmed
[2025-03-19] MEDS: TAMSULOSIN HCL 0.4 MG CAPSULE PO (08:07)
[2025-03-19] MEDS: PANTOPRAZOLE 20 MG TABLET PO (08:07)
[2025-03-19] MEDS: CITRIC ACID/SODIUM CITR 15 ML UDC (BICITRA) 30 ML PO ×2 (08:07→21:17)
[2025-03-19] MEDS: DEXTROSE 5%-LACTATED RINGERS 1,000 ML 40 ML IV (09:16)
--- NOTE | 2025-03-19 10:05 | XR_ITS ---
Examination: CT brain head without contrast. 2-D sagittal coronal reconstructions Date and time of exam:March 19, 2025 1038 hours Comparison July 31, 2024 INDICATIONS: Altered mental status today CTDI: vol (mGy):52.5 DLP: (mGycm):1100 Technique: Multiple CT axial sections of the brain have been obtained, 5 mm slice thickness. Contrast has not been administered. 2-D sagittal, coronal reconstructions have been obtained Low dose protocols were performed. One or more of the following dose reduction techniques were used; automated exposure control, adjustment of the mA and/or KV according to patient size, use of iterative reconstruction technique. Findings: No significant ventricular enlargement. Intra-axial or extra-axial hemorrhage density is not seen. No mass effect or midline shift Basal cisterns are not remarkable. Fourth ventricle is midline. Cranial vault intact. Impression: Negative for acute hemorrhage, mass effect or midline shift Advise clinical correlation follow-up accordingly
--- NOTE | 2025-03-19 10:24 | PC.NURSE ---
Patient transported to CT via birgit Cook RN.
[2025-03-19 11:04] LABS: Base Excess, Venous -1 (-3-3); O2 Saturation, Venous 61 % (96-97); PCO2, Venous 38 mmHg (36-56); PO2, Venous 33 mmHg (15-58); pH, Venous 7.41 (7.33-7.66)
--- NOTE | 2025-03-19 12:12 | XR_ITS ---
Examination: CT chest, without intravenous contrast. CT abdomen, without intravenous contrast. CT pelvis, without intravenous contrast. 2-D sagittal and coronal reconstructions. 3-D reconstructions. Date and time of exam:March 19, 2025, 1234 hours INDICATIONS: Chest and abdominal pain abdominal tenderness today CTDI vol (mgy) 8.24 DLP (MGycm)605 Technique: Multiple CT images, 3.0 mm slice thickness, obtained chest, abdomen, pelvis, with the high-resolution 64 slice scanner.. Sagittal and coronal 2-D reconstructions are obtained. 3-D reconstructions Low dose protocols were performed. One or more of the following dose reduction techniques were used; automated exposure control, adjustment of the mA and/or KV according to patient size, use of iterative reconstruction technique. Findings: Thoracic aortic calcification no aneurysmal dilatation Pulmonary artery segment, main segment is enlarged 39 mm Very heavy calcification left main left anterior descending left circumflex coronary arteries Moderate enlargement cardiac contour Large right pleural effusion Prominent vascular congestion with septal edema Liver irregular in contour Mild to moderate ascites No splenic pancreatic or adrenal mass lesion Heavy abdominal aortic calcification No bowel obstruction Appendix is not visualized No diverticulitis No significant prostatomegaly Contracted urinary bladder, urinary bladder wall thickening Diffuse mild thickening of shaw of the colon Fat-containing inguinal hernias 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
--- NOTE | 2025-03-19 12:28 | PC.NURSE ---
Patient transported to CT via birgit Cook CNA.
[2025-03-19 13:06] LABS: Base Excess -1 (-3-3); HCO3 23 mEq/L (20-26); Inspired O2, VO2 Liters 4 L/min; O2 Saturation 98 % (91-98); PCO2 35 mmHg (32.0-48.0); PO2 89 mmHg (83-108); pH, Arterial 7.44 (7.35-7.45)
[2025-03-19 13:16] LABS: Allen Test Performed/OK; Puncture Site Right Radial
[2025-03-19] MEDS: DOXYCYCLINE INJ 100 MG in SODIUM CHLORIDE 0.9% (POP) 100 ML IV ×2 (13:25→21:53)
[2025-03-19 13:52] LABS: Lactate (Lactic Acid) 1.6 mMol/L (0.4-2.0)
[2025-03-19 14:04] LABS: Sodium 148 mMol/L (136-145)
[2025-03-19] MEDS: ACETAMINOPHEN IVPB 1,000 MG/100 ML VIAL 250 MG IV ×3 (14:51→23:45)
[2025-03-19] MEDS: MELATONIN 3 MG TABLET 5 MG PO (21:17)
[2025-03-19] MEDS: FUROSEMIDE INJ 10 MG/ML 4ML VIAL 40 MG IVP (21:52)
[2025-03-19] MEDS: ALBUMIN HUMAN 25% IVPB 25 GM/100 ML BTL IV (22:54)
[2025-03-20] VITALS (26 sets, daily range): BP systolic 99–143; BP diastolic 64–95; PULSE 68–105; RESP 18–31; TEMP 36.1–37.1; O2SAT 95–100
[2025-03-20] MEDS: LEVOTHYROXINE SODIUM 25 MCG TABLET 50 MCG PO (05:39)
[2025-03-20] MEDS: ACETAMINOPHEN IVPB 1,000 MG/100 ML VIAL 250 MG IV (05:39)
[2025-03-20] MEDS: MIDODRINE 5 MG TABLET 10 MG PO ×3 (05:40→21:40)
--- NOTE | 2025-03-20 06:26 | ESPR_ITS ---
<Statement entered by Alla Lopez MD - 03/24/25 08:02> I reviewed above note and agree with findings and plans. I have also personally examined the patient with medicine team and went over assessment and plan with medical team including wildlife biology internship and resident physician. <Statement entered by Devonte Balbuena MD - 03/20/25 14:27> Patient was seen and examined at the bedside. Patient continues to have pain and difficulty in speaking. Goals of care discussion was performed with the family regarding CODE STATUS and patient himself decided to be DNR/DNI. Platelets were low therefore another bag of platelets were transfused. 1 unit PRBCs also transfused hemoglobin is at 7.3. Family was explained that patient will be getting thoracentesis tomorrow since there is increased risk of bleeding due to low platelets and hemoglobin. Lactulose was added however patient refused to take it due to large amount of stool seen in the CT therefore water enema is ordered. D5W was started for hypernatremia we will follow-up with sodium check. Martinez catheter was placed. Continuing IV vancomycin. Family was thinking of hospice given patient's declining condition however they were explained that we will follow-up with thoracentesis and see his improvement and it would be a better idea later once he is having better breathing. I discussed and supervised with the wildlife biology internship physician who took care of this patient. I personally saw and examined the patient. I agree with most of the assessment and plan. Disclaimer: Despite multiple revisions, due to the dictation software being used, the document bellow may not be free of grammatical errors including phonetic/typographic errors. However, this does not deter from our commitment to providing health care in the patient's best interest in mind. Plan of care discussed with attending Physician Dr. Jessica Balbuena MD PGY-3 Documentation for date of: 03/20/25 Subjective Subjective Interval history: No acute events overnight Goals of care meeting with pt and family, change code status to DNR. see event note, Plan for thoracentesis tomorrow w Dr. Jimenez for R pleural effusion s/p 1 unit PRBC w lasix and albumin, pending H/H, 1 unit PLT today, pending AM coag labs on D5W for hypernatremia, f/u PM Na checks Exam Vital Signs Temp Pulse Resp BP Pulse Ox O2 Del Method O2 Flow Rate 97.8 F 90 19 104/66 99 Nasal Cannula 1 03/20/25 04:00 03/20/25 05:40 03/20/25 04:00 03/20/25 05:40 03/20/25 04:00 03/20/25 04:00 03/20/25 04:00 Narrative Exam GENERAL APPEARANCE: Elderly frail-appearing male worsening of stutter on exam today, severely delirius, unable to answer questions or respond appropriately to commands, appears in mild distress, HEENT: NC, AT. Dry mucous membrane. EOMI, clear conjunctiva, oropharynx clear. HEART: Regular rate and regular rhythm with VAMP STITCHER-D, normal S1/S2, no m/r/g LUNGS: decreased breath sounds on R lung santoyo. tachypnic ABDOMEN: Soft, tender with voluntary guarding to palpation in epigastrum , n ondistended with good bowel sounds heard. , condom cath in place, and diaper on top. BACK: No CVAT, no obvious deformity. EXTREMITIES: upper extremity tremors noted to be less than prior, no resting tremor, LLE edema of ankle and foot. (DVT negative US )RLE nontender to palpation, surgical site without erythematous base or puralent drainage. NEUROLOGICAL: difficult to assess, some acute change in mental status and ability to respond and follow commands, moving extremities spontaneously. Skin: Right medial thigh surgical incision site intact, clean, dressing in place packed Objective Labs 03/20/25 05:08 03/20/25 11:05 Labs: Laboratory Results - last 24 hr 03/10/25 03/19/25 03/19/25 11:06 05:37 10:55 Puncture Site ABG pH ABG pCO2 ABG pO2 ABG HCO3 ABG O2 Saturation ABG Base Excess VBG pH 7.41 VBG pCO2 38 VBG pO2 33 VBG O2 Sat (Mini) 61 L VBG Base Excess -1 Oxygen Liter Flow Sodium 148 H Potassium 4.5 Chloride 114 H Carbon Dioxide 22.9 Anion Gap 11 BUN 64 H Creatinine 2.0 H Estim Creat Clear Calc 23.5 L eGFR 32 L BUN/Creatinine Ratio 32 H Glucose 126 H Calculated Osmolality 314 H Lactic Acid Calcium 9.3 Corrected Calcium 10.4 H Phosphorus 4.8 Magnesium 2.2 Total Bilirubin 0.9 AST 31 ALT 62 H Alkaline Phosphatase 68 Total Protein 8.0 Albumin 2.6 L Globulin 5.4 H Albumin/Globulin Ratio 0.5 L Random Vancomycin 58.9 Misc Test Result Platelets confirmed Blood Type Antibody Screen Crossmatch See Detail Blood Bank Wristband ID Blood Bank Comment 03/19/25 03/19/25 03/19/25 12:58 13:41 16:03 Puncture Site Right Radial ABG pH 7.44 ABG pCO2 35 ABG pO2 89 ABG HCO3 23 ABG O2 Saturation 98 ABG Base Excess -1 VBG pH VBG pCO2 VBG pO2 VBG O2 Sat (Mini) VBG Base Excess Oxygen Liter Flow 4 Sodium 148 H Potassium Chloride Carbon Dioxide Anion Gap BUN Creatinine Estim Creat Clear Calc eGFR BUN/Creatinine Ratio Glucose Calculated Osmolality Lactic Acid 1.6 Calcium Corrected Calcium Phosphorus Magnesium Total Bilirubin AST ALT Alkaline Phosphatase Total Protein Albumin Globulin Albumin/Globulin Ratio Random Vancomycin Misc Test Result Blood Type O Positive Antibody Screen NEGATIVE Crossmatch Blood Bank Wristband ID Yes Blood Bank Comment PLATP Ready ABG Interpretation ABG results: 03/19/25 03/19/25 10:55 12:58 ABG pH 7.44 ABG pCO2 35 ABG pO2 89 ABG HCO3 23 ABG O2 Saturation 98 ABG Base Excess -1 VBG pH 7.41 VBG pCO2 38 VBG pO2 33 VBG Base Excess -1 Quality Measures Quality Measures VTE prophylaxis and sepsis Current suspected stage: sepsis Possible source: skin/soft tissue Blood cultures ordered: yes Antibiotic ordered: Yes Advance care planning discussed with:: patient, spouse and child Assessment & Plan Assessment Current Active Medications: Generic Name Dose Route Start Last Admin Trade Name Robsonq PRN Reason Stop Dose Admin Acetaminophen 650 mg 03/19/25 09:50 03/19/25 16:02 Acetaminophen 325 Mg Tablet PO 04/18/25 09:49 Not Given Q6H [facility] Protocol Buspirone HCl 5 mg 03/18/25 14:00 03/20/25 05:39 Buspirone Hcl 5 Mg Tablet PO 04/17/25 13:59 5 mg TID PRASANTH Administration Carvedilol 3.125 mg 03/18/25 17:30 03/19/25 17:56 Carvedilol 3.125 Mg Tablet PO 04/17/25 17:29 3.125 mg BIDWM PRASANTH Administration Citric Acid/Sodium Citrate 30 ml 03/13/25 21:00 03/19/25 21:17 Citric Acid/Sodium Citr 15 Ml Udc (Bicitra) PO 04/12/25 20:59 30 ml BID PRASANTH Administration Hydromorphone HCl 0.5 mg 03/18/25 12:05 Hydromorphone Inj 2 Mg/Ml Vial IVP 03/23/25 09:59 Q4HR PRN Pain Scale 4-10(Mod-Sev Doxycycline Hyclate 100 mg/ 100 mls @ 100 mls/hr 03/19/25 11:45 03/19/25 22:54 Sodium Chloride IV 03/26/25 11:44 Infused BID PRASANTH Infusion Levothyroxine Sodium 50 mcg 03/10/25 06:00 03/20/25 05:39 Levothyroxine Sodium 25 Mcg Tablet PO 04/09/25 05:59 50 mcg ACBR PRASANTH Administration Melatonin 5 mg 03/15/25 21:00 03/19/25 21:17 Melatonin 3 Mg Tablet PO 04/14/25 20:59 5 mg HS PRASANTH Administration Midodrine 10 mg 03/07/25 06:00 03/20/25 05:40 Midodrine 5 Mg Tablet PO 04/06/25 05:59 10 mg TID PRASANTH Administration Ondansetron HCl 4 mg 03/06/25 21:54 Ondansetron Inj 2 Mg/Ml Inj 2 Ml IVP 04/05/25 21:53 Q6H PRN NAUSEA OR VOMITING Protocol Pantoprazole Sodium 20 mg 03/10/25 09:00 03/19/25 08:07 Pantoprazole 20 Mg Tablet PO 04/09/25 08:59 20 mg QDAY PRASANTH Administration Protocol Sennosides 2 tab 03/13/25 09:00 03/19/25 08:07 Senna Tablet PO 04/12/25 08:59 2 tab QDAY PRASANTH Administration Protocol Tamsulosin HCl 0.4 mg 03/07/25 09:00 03/19/25 08:07 Tamsulosin Hcl 0.4 Mg Capsule PO 04/06/25 08:59 0.4 mg DAILY PRASANTH Administration Plan 89-year-old male with past medical history of HFrEF (LVEF 10 to 15%), CAD, s/p CABG x 4, hypertension, CKD stage IV, myelodysplastic syndrome on chemo and transfusions, hypothyroidism who presents to the ED with right lower extremity posteromedial abscess, status post I&D with surgery wound cultures positive for MRSA, continue on antibiotics, the lower extremity shows abscess remains in the medial posterior thigh 5 x 3 x 10 cm, per Dr. Epperson abscess is too big to drain, recommend surgery therefore plan for surgery with Dr. Austin. On 03/13, I&D was performed by Dr. Austin, 30cc of pus removed from right thigh. Incision site clear and intact. Urine Cx NGTD. PT reccomend SNF, however family and pt prefer home with HH. Had goals of care discussion with pt and family, code status was changed to DNR (see event note). cont on doxy 100 BID for Bcx, plan for thoracentesis with Dr. Jimenez tomorrow, 1 PLT transfused today, and coag panel in the AM, cont d5W for hyper natremia- resolving. #Large R Pleural Effusion pt with worsening tachypnia to 38, up from his baseline. plan for additional unit plt and coag checks prior to possible thoracentesis tomorrow. (see #pancytopenia) Dx - CT chest,AP: with large R pleural effusion Tx - thoracentesis tomorrow. #acute encephalopathy #Metabolic encephalopathy vs Delirium #Hypernatremia #Uremia #hypercalcemia consider metabolic, vs infxn vs structural vs toxin, other etiologies , favor metabolic given pt has elevated BUN, elevated Na. unlikely that infxn is contributing to encephalopathy Pt found more confused at bedside this morning per and nursing staff. Favor post op delirium, cont to treat pain appropriately and orient pt regularly. Na 150, FWD 1.9 L pt with minimal po intake, possibly 2/2 #delirium. given #HFrEF with ef 10-15%, cautious to volume overload. Dx - f.u pm Na labs - NCHCT negative, r/o structural etiology of ence - Blood glucose checks q6hr given poor po intake and c/f hypoglycemia - Ucx negative to date. - Bcx negative @48 hrs Tx - D5W, 75 ml/hr, 1 L , recheck PM Na - cont doxy 100 bid for Bcx 2 wks. - Follow up on daily labs - Melatonin 5-10 mg QHS per neuro recs. - treat pain appropriately, see #RLE abscess - Have regular day and night schedule - Include family members or familiar people in patient care # Pancytopenia # Myelodysplastic syndrome Initial labs: WBC 0.8, hemoglobin 9.1, hematocrit 26.7, platelet 35. MCV within normal limits Patient was on Azocitidine for myelodysplastic syndrome and requires frequent transfusions and Filgastrim Family informed that chemotherapy was held Family has been thinking of hospice for the patient. ANC count 100, 03/09 - 1 unit of platelet was given before I&D - 3 additional units of platelets were given prior to second I&D procedure with Dr. Arango platelet levels at 48 Plan: - Follow-up CBC in a.m. - 1 unit PRBC 03/20, follow up H/H - transfuse additional unit PLT 03/20 pending thora 03/[address] 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 -Recommended to consider giving filgrastim and transfuse blood and give broad- spectrum antibiotics as necessary per oncology recs - Hold any anticoagulation due to low platelet count. DVT prophylaxis with SCDs only - Transfuse if hemoglobin < 7 - neutropenic precautions #GPR bacteremia 1/ Bx - Contaminant Dx -Bcx 03/17 NGTD @ 48 hr Tx - D/c vancomycin (pharmacy to dose) on (03/17-03/19) - cont doxy 100 bid for total of 14 days (03/17- 03/31) #Right lower extremity posterior medial abscess status post surgical I&D day 6 Patient initially developed right thigh fungal infection on 629 during previous hospitalization. Started on clotrimazole topical. Patient reports that he continued to apply the clotrimazole after discharge. Patient reports that he has noticed progressive swelling, redness, pain in this area. Physical exam showed nonfluctuant erythematous and warm area along the posterior medial aspect of the thigh. Right lower extremity CT without contrast showed low-density mass in the posteromedial thigh in adductor christiane muscle measuring 4.7 x 3.8 x 10.5, -03/11 CT lower extremity right Abscess remains in the medial posterior thigh, 5.0 x 2.9 x 10.2 cm -wound cx + MRSA - some concern for possible psoas infxn. Straight leg raise is limited given pain from abscess. Plan ?30cc pus drained by Dr. Arango for remnant abscess in the right medial posterior thigh. Surgical site intact, clean, with slight serosanguinous fluid draining. Tolerable pain. ?Filgrastim 300 mcg given per oncology recs ?d/c to Zosyn 2.25 g - Restart doxycycline 100 IV twice daily, - Postop pain management: IV APAP sched, and dilaudid 0.5mg q4hr prn # ESTELLA on CKD stage IV, Cr (Cr:2.0 2.1) -Possible cardiorenal syndrome Initial labs: BUN 65, creatinine 2.1 Patient's baseline creatinine usually 1.5-1.8 Given 1 L normal saline in ED Patient has a history of HFrEF, important not to overload patient with IVF Plan: - Continue to monitor with CMP daily - Avoid nephrotoxic agents -small volume IVF bolus PRN - Albumin 25 g given x 2 - Albumin 12.5 and Lasix following PRBC unit given today #query abdominal pain 2/2 distended bladder # Benign prostatic hypertrophy Bladder looks distended on CTAP, pending bladder scan and possible martinez if retaining, pt has condom cath with diaper, has been voiding. Dx - f/u bladder scan, place martinez if retaining >250 ml Tx - Continue home Tamsulosin 0.4 mg PO daily #Constipation pt wo BM for 2 days Tx - BM reg: Senna 2 tabs qd, lactulose (pt refused), water enema - consider bowel disempaction if constipation persists despite medication interventions. #Hyoptension -In setting of HFrEF ef 10-15% and MDS - Patient blood pressure is around 97/54 Plan: -Continue midodrine 10 mg 3 times daily -IV fluids were given initially during admission -IV albumin 25 g x 1 #UCx Psuedomonal - treatment completed - Zosyn stopped today 03/14/25. Pt has been on Zosyn for 1 week for Urine Pseudomona treatment. #Speech Stuttering #Essential tremors #? 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 ? Ammonia level less than 10, B12 1762, folate within normal limits. TSH 10.93. ?thiamine 9 and free T4 1.30 Plan: -buspirone 5mg, 3 times daily for anxiety, stuttering persists today. -Speech therapy recommended Chopped food to optimize independence with meals. -Consulted neurology for further recommendations ?Neurology is following the case. Neurology considerations are likely related to stress-induced tremor and stuter/psychogenic, medication induced parkinsonism, cerebellar CVA, vitamin deficiency, electrolyte abnormality ? Follow-up with thyroid functions in 4 to 6 weeks #Subclinical hypothyroidism - Patient is already on levothyroxine 25 mcg - TSH 10.93, free T4 1.30 Plan: -Increase of dose of levothyroxine to 50 mcg # HFrEF, EF 10 to 15% # Hx Hypertension TTE 02/16/25: LVEF 10 to 15% Home meds (per 02/24/25 discharge summary): Carvedilol 3.215 mg PO BID, Entresto 0.5 mg PO BID, Midodrine 10 mg PO TID BP in ED: sBP 93-107 / dBP 52-57 Initial labs: BNP elevated 2003 Initial chest x-ray showed vascular congestion. Right upper extremity Doppler negative for DVT Plan: - Resume home Coreg - Continue midodrine. Continue to monitor on telemetry, can hold Coreg if hypotensive (BP < 90/70) - Hold Entresto (2/2 ESTELLA) - Fluid restrictions - 1.5 L / day - Daily weights - Strict I&Os - Careful hydration # Hyperkalemia- resolved Potassium: wnl ? Kayexalate x 1 #NAGMA -Possible diarrhoea -Patient had passage of loose stools in previous days -Continue Bicitra BID - Follow up on daily labs #Elevated Vitamin B12 - Vitamin B12 1762 Plan: -Outpatient follow-up # Prolonged QTc Initial EKG showed QTc 531 Plan: - Continue to monitor on telemetry - Avoid QTc prolonging agents - replete electrolytes as necessary # Left buttock erythema Plan: - Frequent turns, continue to monitor - Wound care #Right lower extremity swelling concerning for DVT-R/0 On exam right ankle and foot were swollen compared to left Dx -Right lower extremity DVT ultrasound: No DVT #Loose bowel movements x 4-resolved Patient has reported 4 loose bowel movements yesterday, consider loose stools secondary to filgastram side effects versus antibiotic associated diarrhea given patient continues on Zosyn for right medial thigh abscess No loose stools today -Consider C. difficile PCR if loose bowel movements continue -CTM BMs #Left hand itchiness- Resolved Patient reported that after IV placement on left hand that he was experiencing itchiness, consider dermatitis to adhesive used for IV ? Topical Benadryl cream as needed to affected areas Dispo: Plan for home with home health patient family requesting help with hospital bed, post GOC conversation w code status change to DNR, pending thora tomorrow with Dr. Jimenez DVT prophylaxis: SCDs GI prophylaxis: Protonix 20 Diet: Cardiac Diet Dysphagia advanced, boost plus TID with meals pt with minimal PO intake, q6hr glucose checks. Lines: Peripheral IV, condom catheter Code status: Full code Case discussed with my senior resident Dr. Balbuena Case discussed with my attending Dr. Jessica Hoang MD PGY-1
[2025-03-20 06:39] LABS: Basophils # (Auto) 0.0 Thou/mm3 (0.0-0.2); Basophils % (Auto) 2 % (0-2.5); Eosinophils # (Auto) 0.0 Thou/mm3 (0.0-0.5); Eosinophils % (Auto) 2 % (0-10); Hematocrit 21.7 % (41.0-53.0); Immature Granulocytes Auto 0.00 Thou/mm3 (0.00-0.00); Lymphocytes # (Auto) 0.3 Thou/mm3 (1.0-4.8); Lymphocytes % (Auto) 67 % (10-50); Mean Corpuscular HGB Conc 33.6 g/dl (31.0-37.0); Mean Corpuscular Hemoglobin 29.3 pg (25.0-35.0); Mean Corpuscular Volume 87 fL (80-100); Monocytes # (Auto) 0.0 Thou/mm3 (0.0-0.8); Monocytes % (Auto) 4 % (0-12); Neutrophils # (Auto) 0.1 Thou/mm3 (1.8-7.7); Neutrophils % (Auto) 25 % (37-80); Nucleated Red Blood Cell # 0.00 Thou/mm3 (0.00-0.00); Nucleated Red Blood Cell % 0 /100 WBC (0); RDW Standard Deviation 53.8 fL (35.1-43.9); Red Blood Count 2.49 Miln/mm3 (4.50-5.90)
--- NOTE | 2025-03-20 06:47 | PC.NURSE ---
RT HAD RUN OF 9 PVCS, PT SLEEPING AWAKEN EASILY TO CALL OF NAME. PT DENIES CHEST DISCOMFORT. BP 102/60,HR 84. DR. GOMEZ NOTIFIED, NO NEW ORDER.
[2025-03-20 06:52] LABS: INR 1.5 (0.9-1.3); Partial Thromboplastin Time 34.3 Seconds (22.0-36.0); Prothrombin Time 16.2 Seconds (9.0-12.2)
[2025-03-20 06:54] LABS: Hemoglobin 7.3 g/dL (13.5-16.0); Platelet Count 44 Thou/mm3 (140-440); White Blood Count 0.5 Thou/mm3 (3.8-10.6)
[2025-03-20 07:33] LABS: Alanine Aminotransferase 37 U/L (10-49); Albumin, Serum 2.8 gm/dL (3.4-4.8); Albumin/Globulin Ratio 0.6 (1.2-2.2); Alkaline Phosphatase 57 U/L (46-116); Anion Gap 12 (7-16); Aspartate Amino Transferase 13 U/L (0-34); BUN/Creatinine Ratio 34 Ratio (12-20); Bilirubin,Total 0.8 mg/dL (0.3-1.2); Blood Urea Nitrogen 72 mg/dL (9-23); Calcium 9.3 mg/dL (8.3-10.6); Calcium (Corrected) 10.3 mg/dL (8.5-10.1); Carbon Dioxide 24.0 mMol/L (20.0-31.0); Chloride 114 mMol/L (98-107); Creatinine (Component) 2.1 mg/dL (0.6-1.3); Estimated Creatinine Clearance 22.4 mL/min (>60); Globulin 4.8 gm/dL (2.3-3.5); Glucose 133 mg/dL (74-106); Magnesium 2.2 mg/dL (1.6-2.6); Osmolality,Calculated 321 (275-295); Phosphorous 4.7 mg/dL (2.4-5.1); Potassium 4.0 mMol/L (3.4-5.1); Sodium 150 mMol/L (136-145); Total Protein 7.6 gm/dL (5.7-8.2); eGFR 30 See Note
[2025-03-20 08:36] LABS: Slide Review Platelets confirmed
[2025-03-20] MEDS: DOXYCYCLINE INJ 100 MG in SODIUM CHLORIDE 0.9% (POP) 100 ML IV ×2 (09:31→21:25)
[2025-03-20] MEDS: CITRIC ACID/SODIUM CITR 15 ML UDC (BICITRA) 30 ML PO ×2 (09:33→21:25)
[2025-03-20] MEDS: TAMSULOSIN HCL 0.4 MG CAPSULE PO (09:33)
[2025-03-20] MEDS: PANTOPRAZOLE 20 MG TABLET PO (09:33)
[2025-03-20] MEDS: FUROSEMIDE INJ 10 MG/ML VIAL 2 ML 20 MG IV (09:35)
[2025-03-20] MEDS: ALBUMIN HUMAN 25% IVPB 12.5 GM/50 ML BTL IV (09:35)
--- NOTE | 2025-03-20 10:01 | PC.SS ---
Addendum entered by Charlene Bradley 03/20/25 12:25: GOC meeting held. Present at bedside were Dr. Lopez, Dr. Balbuena, RN Salazar, RN Eric, patient's son Dustin Wyatt and patient's spouse Valeria Wyatt. Code status updated to DNR effective today, 03/20/25. POLST form placed in patient?s medical chart, POLST form faxed to patient registration at [phone]. Original Note: Body Painter informed by Dr. Tawana Camejo is requesting GOC be scheduled for 1130. Body Painter contacted patient's son Dustin Wyatt [phone] to confirm availability for GOC meeting, Dustin confirmed he will meet team at 1130 at bedside for GOC meeting. Dr. Gilliam informed.
[2025-03-20 11:42] LABS: Ammonia < 10 uMol/L (11-32)
[2025-03-20 13:42] LABS: Sodium 149 mMol/L (136-145)
[2025-03-20] MEDS: LACTULOSE SYRUP 20 GM/30 ML UDC 40 GM PO (14:03)
--- NOTE | 2025-03-20 14:09 | EVENTNT_ITS ---
Documentation for date of: 03/20/25 Event Note Event Note: Goals of care discussion Patient's family was present at the bedside. In the presence of RN Eric , executive secretary social welfare Charlene and my attending physician, Dr. Lopez family was explained that patient's overall condition is declining and deconditioning. Given his poor condition, discussion was performed regarding CPR and intubation given we are doing an invasive procedure thoracentesis. They were explained that during the procedure if patient code we would like to know their wishes. Patient was alert and oriented x 3 and he decided to be DNR/DNI. He stated that he does not want to be resuscitated if his heart stops and does not want to be intubated if he is not breathing. Family was agreeable to patient's wishes. Patient signed POLST form which is attached in patient's file. They were informed that thoracentesis will be likely performed tomorrow as his platelets are still low and we are transfusing 1 unit PRBC and additional bag of platelets. ICU gas cutter is aware and will be doing thoracentesis tomorrow. Family was agreeable. Additionally, patient's was asking if patient is declining rapidly and would benefit with hospice. Family was explained that it would be a good idea later but for now we will relief his breathing difficulty after removing fluid from his right lung tomorrow. Plan of care discussed with attending physician, Dr. Jessica Balbuena MD, PGY 3
--- NOTE | 2025-03-20 14:28 | PC.SS ---
Rounding note: patient is pending thorasenthesis. GOC was held today and code status was changed to DNR.
[2025-03-20] MEDS: DEXTROSE 5%-WATER 1,000 ML 70 ML IV (15:47)
[2025-03-20 19:12] LABS: Hematocrit 26.4 % (41.0-53.0)
[2025-03-20 19:18] LABS: Hemoglobin 8.6 g/dL (13.5-16.0)
[2025-03-20] MEDS: MELATONIN 3 MG TABLET 5 MG PO (21:26)
[2025-03-21] VITALS (12 sets, daily range): BP systolic 110–134; BP diastolic 55–80; PULSE 85–108; RESP 18–96; TEMP 36.1–36.6; O2SAT 97–99
--- NOTE | 2025-03-21 05:30 | PC.NURSE ---
Dr. Jansen made aware of patient's high respirations. MD to come in and assess patient.
--- NOTE | 2025-03-21 05:35 | PC.NURSE ---
Dr. Alba and Dr. Jansen in the room to assess patient. MDs also made aware of patient having difficulty swallowing meds and thin liquid last night during med administration. PO lactulose scheduled for constipation but Pt refused [address] Alba aware and said will change the order to CA. No change in diet at this time.
--- NOTE | 2025-03-21 05:58 | PC.NURSE ---
Lactulose [place] ordered could not be taken out of the pixys as it is ordered in a large dose. It should be brought up to the floor from pharmacy. MD Alba aware.
[2025-03-21 06:19] LABS: Basophils # (Auto) 0.0 Thou/mm3 (0.0-0.2); Basophils % (Auto) 2 % (0-2.5); Eosinophils # (Auto) 0.0 Thou/mm3 (0.0-0.5); Eosinophils % (Auto) 0 % (0-10); Hematocrit 25.7 % (41.0-53.0); Immature Granulocytes Auto 0.00 Thou/mm3 (0.00-0.00); Lymphocytes # (Auto) 0.3 Thou/mm3 (1.0-4.8); Lymphocytes % (Auto) 59 % (10-50); Mean Corpuscular HGB Conc 33.9 g/dl (31.0-37.0); Mean Corpuscular Hemoglobin 28.2 pg (25.0-35.0); Mean Corpuscular Volume 83 fL (80-100); Monocytes # (Auto) 0.0 Thou/mm3 (0.0-0.8); Monocytes % (Auto) 5 % (0-12); Neutrophils # (Auto) 0.2 Thou/mm3 (1.8-7.7); Neutrophils % (Auto) 34 % (37-80); Nucleated Red Blood Cell # 0.00 Thou/mm3 (0.00-0.00); Nucleated Red Blood Cell % 0 /100 WBC (0); RDW Standard Deviation 56.9 fL (35.1-43.9); Red Blood Count 3.09 Miln/mm3 (4.50-5.90)
[2025-03-21 06:22] LABS: Hemoglobin 8.7 g/dL (13.5-16.0); INR 1.4 (0.9-1.3); Platelet Count 69 Thou/mm3 (140-440); Prothrombin Time 15.3 Seconds (9.0-12.2); White Blood Count 0.4 Thou/mm3 (3.8-10.6)
[2025-03-21 06:37] LABS: Alanine Aminotransferase 26 U/L (10-49); Albumin, Serum 2.7 gm/dL (3.4-4.8); Albumin/Globulin Ratio 0.5 (1.2-2.2); Alkaline Phosphatase 62 U/L (46-116); Anion Gap 12 (7-16); Aspartate Amino Transferase 12 U/L (0-34); BUN/Creatinine Ratio 34 Ratio (12-20); Bilirubin,Total 0.8 mg/dL (0.3-1.2); Blood Urea Nitrogen 79 mg/dL (9-23); Calcium 9.5 mg/dL (8.3-10.6); Calcium (Corrected) 10.5 mg/dL (8.5-10.1); Carbon Dioxide 24.3 mMol/L (20.0-31.0); Chloride 113 mMol/L (98-107); Creatinine (Component) 2.3 mg/dL (0.6-1.3); Estimated Creatinine Clearance 20.4 mL/min (>60); Globulin 5.0 gm/dL (2.3-3.5); Glucose 161 mg/dL (74-106); Magnesium 2.4 mg/dL (1.6-2.6); Osmolality,Calculated 322 (275-295); Phosphorous 4.9 mg/dL (2.4-5.1); Potassium 4.1 mMol/L (3.4-5.1); Sodium 149 mMol/L (136-145); Total Protein 7.7 gm/dL (5.7-8.2); eGFR 27 See Note
--- NOTE | 2025-03-21 07:09 | ESPR_ITS ---
<Statement entered by Alla Lopez MD - 03/24/25 08:33> I reviewed above note and agree with findings and plans. I have also personally examined the patient with medicine team and went over assessment and plan with medical team including purchasing intern and resident physician. Documentation for date of: 03/21/25 Subjective Subjective Interval history: Goals of care conversation with family and MDs, Decided to pursue comfort care (see event note for GOC) Exam Vital Signs Temp Pulse Resp BP Pulse Ox O2 Del Method O2 Flow Rate 97.0 F 107 H 19 115/80 98 Nasal Cannula 1 03/21/25 03:57 03/21/25 06:13 03/21/25 03:57 03/21/25 06:13 03/21/25 03:57 03/21/25 03:57 03/21/25 03:57 Narrative Exam GENERAL APPEARANCE: Elderly frail-appearing male not speaking, severely delirius, unable to answer questions or respond appropriately to commands, appears in distress, HEENT: NC, AT. Dry mucous membrane. EOMI, clear conjunctiva, oropharynx clear. HEART: Regular rate and regular rhythm with INSPECTOR SCALES-D, normal S1/S2, no m/r/g LUNGS: decreased breath sounds on R lung santoyo. tachypnic to 40s RR ABDOMEN: Soft, very tender with voluntary guarding to palpation in epigastrum , nondistended with good bowel sounds heard. grimaces to palpation , condom cath in place, and diaper on top. BACK: No CVAT, no obvious deformity. EXTREMITIES: upper extremity tremors noted to be less than prior, no resting tremor, RLE nontender to palpation, surgical site without erythematous base or puralent drainage. NEUROLOGICAL: lethargic, and unable to respond to questions or follow commands, grimaces to pain on abdominal exam difficult to assess, some acute change in mental status and ability to respond and follow commands, moving extremities spontaneously. Skin: Right medial thigh surgical incision site intact, clean, dressing in place packed Objective Labs 03/21/25 05:07 03/21/25 05:07 Labs: Laboratory Results - last 24 hr 03/10/25 03/19/25 03/20/25 11:06 16:03 05:08 WBC RBC Hgb Hct MCV MCH MCHC RDW Std Deviation Plt Count Neut % (Auto) Lymph % (Auto) [place] % (Auto) Eos % (Auto) Baso % (Auto) Neut # (Auto) Lymph # (Auto) [place] # (Auto) Eos # (Auto) Baso # (Auto) Immature Gran # (Auto) Absolute Nucleated RBC Immature Gran % Nucleated RBC % PT INR Sodium 150 H Potassium 4.0 D Chloride 114 H Carbon Dioxide 24.0 Anion Gap 12 BUN 72 H Creatinine 2.1 H Estim Creat Clear Calc 22.4 L eGFR 30 L BUN/Creatinine Ratio 34 H Glucose 133 H Calculated Osmolality 321 H Calcium 9.3 Corrected Calcium 10.3 H Phosphorus 4.7 Magnesium 2.2 Total Bilirubin 0.8 AST 13 ALT 37 Alkaline Phosphatase 57 Ammonia Total Protein 7.6 Albumin 2.8 L Globulin 4.8 H Albumin/Globulin Ratio 0.6 L Misc Test Result Platelets confirmed Blood Type O Positive Antibody Screen NEGATIVE Crossmatch See Detail See Detail Blood Bank Wristband ID Yes Blood Bank Comment PLATP Ready 03/20/25 03/20/25 03/21/25 11:05 18:50 05:07 WBC 0.4 L* RBC 3.09 L Hgb 8.6 L 8.7 L Hct 26.4 L 25.7 L MCV 83 MCH 28.2 MCHC 33.9 RDW Std Deviation 56.9 H Plt Count 69 L D Neut % (Auto) 34 L Lymph % (Auto) 59 H [place] % (Auto) 5 Eos % (Auto) 0 Baso % (Auto) 2 Neut # (Auto) 0.2 L Lymph # (Auto) 0.3 L [place] # (Auto) 0.0 Eos # (Auto) 0.0 Baso # (Auto) 0.0 Immature Gran # (Auto) 0.00 Absolute Nucleated RBC 0.00 Immature Gran % 0 Nucleated RBC % 0 PT 15.3 H INR 1.4 H Sodium 149 H 149 H Potassium 4.1 Chloride 113 H Carbon Dioxide 24.3 Anion Gap 12 BUN 79 H Creatinine 2.3 H Estim Creat Clear Calc 20.4 L eGFR 27 L BUN/Creatinine Ratio 34 H Glucose 161 H Calculated Osmolality 322 H Calcium 9.5 Corrected Calcium 10.5 H Phosphorus 4.9 Magnesium 2.4 Total Bilirubin 0.8 AST 12 ALT 26 Alkaline Phosphatase 62 Ammonia < 10 L Total Protein 7.7 Albumin 2.7 L Globulin 5.0 H Albumin/Globulin Ratio 0.5 L Misc Test Result Blood Type Antibody Screen Crossmatch Blood Bank Wristband ID Blood Bank Comment ABG Interpretation ABG results: 03/19/25 03/19/25 10:55 12:58 ABG pH 7.44 ABG pCO2 35 ABG pO2 89 ABG HCO3 23 ABG O2 Saturation 98 ABG Base Excess -1 VBG pH 7.41 VBG pCO2 38 VBG pO2 33 VBG Base Excess -1 Quality Measures Quality Measures comfort care/end of life Advance care planning discussed with:: spouse and child Assessment & Plan Assessment Current Active Medications: Generic Name Dose Route Start Last Admin Trade Name Freq PRN Reason Stop Dose Admin Acetaminophen 650 mg 03/19/25 09:50 03/19/25 16:02 Acetaminophen 325 Mg Tablet PO 04/18/25 09:49 Not Given Q6H PRASANTH Protocol Buspirone HCl 5 mg 03/18/25 14:00 03/21/25 06:12 Buspirone Hcl 5 Mg Tablet PO 04/17/25 13:59 Not Given TID PRASANTH Carvedilol 3.125 mg 03/18/25 17:30 03/20/25 17:40 Carvedilol 3.125 Mg Tablet PO 04/17/25 17:29 3.125 mg BIDWM PRASANTH Administration Citric Acid/Sodium Citrate 30 ml 03/13/25 21:00 03/20/25 21:25 Citric Acid/Sodium Citr 15 Ml Udc (Bicitra) PO 04/12/25 20:59 30 ml BID PRASANTH Administration Furosemide 20 mg 03/21/25 08:00 Furosemide Inj 10 Mg/Ml Vial 2 Ml IV 03/21/25 08:01 X1 ONE Hydromorphone HCl 0.5 mg 03/18/25 12:05 Hydromorphone Inj 2 Mg/Ml Vial IVP 03/23/25 09:59 Q4HR PRN Pain Scale 4-10(Mod-Sev Doxycycline Hyclate 100 mg/ 100 mls @ 100 mls/hr 03/19/25 11:45 03/20/25 21:25 Sodium Chloride IV 03/26/25 11:44 100 mls/hr BID PRASANTH Administration Albumin Human 25 gm in 100 mls @ 100 mls/hr 03/21/25 08:00 Albuminar-25 Ivpb IV 03/21/25 08:59 X1 ONE Lactulose 40 gm 03/20/25 10:00 03/21/25 06:13 Lactulose Syrup 20 Gm/30 Ml Udc PO 04/19/25 09:59 Not Given TID [facility] Protocol Levothyroxine Sodium 50 mcg 03/10/25 06:00 03/21/25 06:13 Levothyroxine Sodium 25 Mcg Tablet PO 04/09/25 05:59 Not Given ACBR PRASANTH Magnesium Hydroxide 30 ml 03/20/25 10:00 03/20/25 11:33 Milk Of Magnesia Susp 30 Ml Udc PO 04/19/25 09:59 Not Given QDAY [facility] Protocol Melatonin 5 mg 03/15/25 21:00 03/20/25 21:26 Melatonin 3 Mg Tablet PO 04/14/25 20:59 5 mg HS PRASANTH Administration Midodrine 10 mg 03/07/25 06:00 03/21/25 06:13 Midodrine 5 Mg Tablet PO 04/06/25 05:59 Not Given TID PRASANTH Ondansetron HCl 4 mg 03/06/25 21:54 Ondansetron Inj 2 Mg/Ml Inj 2 Ml IVP 04/05/25 21:53 Q6H PRN NAUSEA OR VOMITING Protocol Pantoprazole Sodium 20 mg 03/10/25 09:00 03/20/25 09:33 Pantoprazole 20 Mg Tablet PO 04/09/25 08:59 20 mg QDAY [facility] Administration Protocol Sennosides 2 tab 03/13/25 09:00 03/20/25 09:33 Senna Tablet PO 04/12/25 08:59 2 tab QDAY [facility] Administration Protocol Tamsulosin HCl 0.4 mg 03/07/25 09:00 03/20/25 09:33 Tamsulosin Hcl 0.4 Mg Capsule PO 04/06/25 08:59 0.4 mg DAILY [facility] Administration Plan Mr. 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 Austin, wound cultures positive for MRSA. Following the second I&D pt experienced worsening mental status, increased lethargy and non-responsive, unable to tolerate food or meds PO. He had increased WOB, with tachypnea of 44 RR. He was found to have large Right pleural effusion. Discussed the possibility of thoracentesis with Dr. Jimenez. Goals of care conversations with Dr. Balbuena and family prompted them to change the code status to DNR. Another goals of care conversation was had with pt family and internal medicine team (see event note by Dr. Balbuena), when family decided to pursue comfort care. #Comfort Care - IV morpheine 1mg /hr prn - lorazepam 2mg/hr prn - glycopyrolate 0.5 mg IV qd prn - NPO - Airway suctioning as needed #Large R Pleural Effusion #acute encephalopathy #Metabolic encephalopathy vs Delirium #Hypernatremia #Uremia #hypercalcemia # Pancytopenia # Myelodysplastic syndrome #Right lower extremity posterior medial abscess status post surgical # ESTELLA on CKD stage IV # Benign prostatic hypertrophy # Constipation #Speech Stuttering #Essential tremors #? 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 Jessica Hoang MD PGY-1
[2025-03-21 07:25] LABS: Slide Review Platelets confirmed
[2025-03-21] MEDS: LACTULOSE SYRUP 10 GM/15 ML 200 GM PR (07:46)
[2025-03-21] MEDS: ALBUMIN HUMAN 25% IVPB 25 GM/100 ML BTL IV (09:11)
[2025-03-21] MEDS: DOXYCYCLINE INJ 100 MG in SODIUM CHLORIDE 0.9% (POP) 100 ML IV (09:11)
[2025-03-21] MEDS: FUROSEMIDE INJ 10 MG/ML VIAL 2 ML 20 MG IV (09:30)
--- NOTE | 2025-03-21 14:17 | PC.SS ---
ASW supported Dr. Eris MD with the Comfort of Care meeting with the family. Pts and pts son were family who were present. Pts and son decided on Comfort Care for the pt versus taking the pt home. Dr. Schulte will start Comfort Care in 40 minutes as she allowed pts family to contact family and someone to pray over the pt, per their request.
--- NOTE | 2025-03-21 14:25 | PD.RESEVENT ---
Documentation for date of: 03/21/25 Event Note Event Note: Goals of care discussion Goals of care discussion performed with patient's family in the presence of social economist. Patient's family was explained that patient is declining rapidly in his condition due to his advanced blood cancer with aplastic anemia and he has not been eating and drinking along with no bowel movements from last couple of days. His blood cell lines are rapidly declining and patient is not even alert. Patient's family wanted to go for hospice however they were explained that patient is declining rapidly that he would not make to home with this condition. He is currently breathing with difficulty, not having any appetite and is in pain and is not appropriate for hospice anymore. Comfort care would be the best option for him given his critical condition. Family was agreeable to proceed with comfort care measures. human services supervisor were notified. RN was notified for starting morphine drip. Referred stripper cutter machine services. Patient was seen and discussed with attending physician, Dr Jessica Balbuena MD PGY3
[2025-03-21] MEDS: Morphine IV Drip 100mg/100ml 100 ML IV (18:11)
[2025-03-22] VITALS: BP 101/63; PULSE 96; RESP 24; TEMP 36.6; O2SAT 92
[2025-03-22 04:00] VITALS: BP 101/62; PULSE 91; RESP 22; TEMP 36.5; O2SAT 94
[2025-03-22] MEDS: LORazepam 2 MG/ML VIAL IVP ×5 (05:19→18:23)
--- NOTE | 2025-03-22 07:33 | ESPR_ITS ---
<Statement entered by Alla Lopez MD - 03/27/25 07:32> I reviewed above note and agree with findings and plans. I have also personally examined the patient with medicine team and went over assessment and plan with medical team including internet marketer and resident physician. Documentation for date of: 03/22/25 Subjective Subjective Interval history: pt at bedside, stating that she will spend the night, requesting recliner pt resting in bed, appears comfortable, on 1mg/hr morpheine Exam Vital Signs Temp Pulse Resp BP Pulse Ox O2 Del Method O2 Flow Rate 97.7 F 91 22 H 101/62 94 L Room Air 1 03/22/25 04:00 03/22/25 04:00 03/22/25 04:00 03/22/25 04:00 03/22/25 04:00 03/22/25 04:00 03/22/25 00:00 Narrative Exam General: elderly frail gentleman resting comfortably in bed. Pulm: breathing more comfortably. Heart: RRR Objective Labs 03/21/25 05:07 03/21/25 05:07 ABG Interpretation ABG results: 03/19/25 03/19/25 10:55 12:58 ABG pH 7.44 ABG pCO2 35 ABG pO2 89 ABG HCO3 23 ABG O2 Saturation 98 ABG Base Excess -1 VBG pH 7.41 VBG pCO2 38 VBG pO2 33 VBG Base Excess -1 Quality Measures Quality Measures comfort care/end of life Advance care planning discussed with:: spouse Assessment & Plan Assessment Current Active Medications: Generic Name Dose Route Start Last Admin Trade Name Freq PRN Reason Stop Dose Admin Glycopyrrolate 0.2 mg 03/21/25 14:14 Glycopyrrolate Inj 0.2 Mg/Ml Vial IV 04/20/25 14:13 QID PRN As needed for secretions Morphine Sulfate 100 mls @ 1 mls/hr 03/21/25 14:11 03/21/25 18:11 Morphine Sulfate Iv Drip 100mg/100ml IV 03/26/25 14:10 1 mg/hr .Q24H PRN 1 mls/hr PAIN (COMFORT CARE) Administration Protocol 1 MG/HR Lorazepam 2 mg 03/21/25 14:15 03/22/25 05:19 Lorazepam 2 Mg/Ml Vial IVP 03/26/25 14:14 2 mg Q1HR PRN Administration for air hunger/gasping Ondansetron HCl 4 mg 03/06/25 21:54 Ondansetron Inj 2 Mg/Ml Inj 2 Ml IVP 04/05/25 21:53 Q6H PRN NAUSEA OR VOMITING Protocol Plan Mr. 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 Austin, wound cultures positive for MRSA. Following the second I&D pt experienced worsening mental status, increased lethargy and non-responsive, unable to tolerate food or meds PO. He had increased WOB, with tachypnea of 44 RR. He was found to have large Right pleural effusion. Pt continues on comfort care. #Comfort Care - IV morpheine 1mg /hr prn - lorazepam 2mg/hr prn - glycopyrolate 0.5 mg IV qd prn - NPO - Airway suctioning as needed #Large R Pleural Effusion #acute encephalopathy #Metabolic encephalopathy vs Delirium #Hypernatremia #Uremia #hypercalcemia # Pancytopenia # Myelodysplastic syndrome #Right lower extremity posterior medial abscess status post surgical # ESTELLA on CKD stage IV # Benign prostatic hypertrophy # Constipation #Speech Stuttering #Essential tremors #? 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 Jessica Hoang MD PGY-1
[2025-03-22 07:46] VITALS: BP 96/53; PULSE 84; RESP 17; TEMP 36.1; O2SAT 92
[2025-03-22 10:58] VITALS: PULSE 87; RESP 16; RESP 95
--- NOTE | 2025-03-22 19:49 | PD.DPN ---
Documentation for date of: 03/22/25 Pronouncement Note Date and Time of Date of : 03/22/25 Time of : 19:14 Contributing Factors (1) Altered mental status: (2) Abscess of right thigh: (3) Pancytopenia: Summary Additional details: I was called to see patient for unresponsiveness. On exam, the patient did not respond to verbal or physical stimuli. Absent heart and breath sounds. Absent peripheral pulses. Pupils are fixed and dilated. Patient pronounced at 19: [address] August notified. Family notified. Additional Data Attending physician: Frank August MD
--- NOTE | 2025-03-22 19:51 | PC.NURSE ---
Patient was pronounced at 19:[address] Amor. Juliette EUGENE and I in the room.
--- NOTE | 2025-03-22 21:35 | PC.NURSE ---
Inner Tube Tuber Machine Operator got in the room with JABIER Chambers to get report at bedside when JABIER Chambers noticed that pt was not breathing. JABIER Chambers called Dr. Amor to let him know about the pt's condition. Pt was pronounced at 1917 PM. Family at bedside at the time MD pronounced pt's .
--- NOTE | 2025-03-23 07:51 | DES_ITS ---
<Statement entered by Alla Lopez MD - 03/28/25 12:37> I reviewed above note and agree with findings and plans. I have also personally examined the patient with medicine team and went over assessment and plan with medical team including quality intern and resident physician. Documentation for date of: 03/23/25 Summary Date and Time Date of admission: 03/06/25 21:49 Date of : 03/22/25 Time of : 17:19 Summary Hospital Course: Admission Diagnosis: * Right medial thigh cellulitis vs abscess Discharge Diagnoses (at time of ): * Right medial thigh abscess status post incision and drainage ?2 * Acute encephalopathy * Bilateral upper extremity action tremor and stuttering speech (improved with bupropion) * Large right pleural effusion * Increased work of breathing and tachypnea * Comfort care measures Hospital Course: Mr. Wyatt was an 89-year-old gentleman who initially presented with right medial thigh cellulitis concerning for abscess. Imaging and physical examination confirmed a right medial thigh abscess, and he underwent incision and drainage (I&D) by the general surgery service on two occasions. During hospitalization, the patient was noted to have stuttering speech and a bilateral upper extremity action tremor.Neuro was consulted. He was started on bupropion 5 mg TID, later increased to 7.5 mg TID, which improved his symptoms. Following the second I&D procedure, the patient became increasingly altered. Bupropion was reduced to 5 mg TID, and opioids were minimized for pain control due to concern for worsening acute encephalopathy. A non-contrast CT head was negative for acute stroke. The patient remained encephalopathic, Subsequently, the patient developed progressive tachypnea (respiratory rate up to 40) and increased work of breathing. Imaging revealed a large right pleural effusion, which was felt to be contributing to his respiratory status. After comprehensive [id number] discussions with his and son, the decision was made to change the code status of the patient to (DNR) status and later to initiate comfort-focused measures. On comfort care, the patient appeared more comfortable on examination. MD was paged to bedside for unresponsiveness. On exam, the patient did not respond to verbal or physical stimuli. Absent heart and breath sounds. Absent peripheral pulses. Pupils are fixed and dilated. Patient pronounced at 19: [address] August notified. Family notified. Case discussed with my senior resident Dr. Balbuena Case discussed with my attending Dr. Jessica Hoang MD PGY-1 Additional Data Attending physician: Kamilla Patel, Visit Providers Provider Primary care physician: Physician No Primary/Family Consults: 03/06/25 20:33 Consult to General Surgery Stat Comment: Intramuscular abscess right thigh Consulting Provider: Palma Austin 03/07/25 15:29 Referral Speech Therapy Routine Comment: stutter, progressive 03/08/25 09:51 Consult to Neurology / Tele-Neurology Routine Comment: speech incoherence Consulting Provider: Piotr Haskins 03/09/25 05:42 Referral Registered Dietitian Routine Comment: Referral Wound Care Routine Comment: 03/09/25 15:18 Referral OP Wound Healing Dept Routine Comment: Instructions: Right inner thigh abscess s/p I&D 03/09/25 15:46 Referral Physical Therapy Routine Comment: Physician Instructions: 03/21/25 14:19 Referral [facility] Routine Comment: Pronouncing clinician: Frank August Diagnosis Contributing Factors (1) Altered mental status: (2) Abscess of right thigh: (3) Pancytopenia: Discharge Plan Plan Patient Disposition: Disposition Comment: [facility] Patient condition on transfer: Stable Care Plan Goals: You have been started on the following medications: -Take doxycycline 100 mg twice a day for 7 more days to complete course -Buspirone 7.5 mg three times daily Your levothyroxine has been increased to 50 mcg daily The following meds are being HELD: -aspirin, finestaride, entresto, hydroxyzine Please get CBC every 10-12 days for seeing your hemoglobin and requiring blood transfusion if drops below 8 per oncology recs Please follow up with your primary doctor within 7-10 days. Please see your machining associate about restarting your home medications. Please see Dr. Haskins outpatient for follow up. Please follow up with wound care outpatient. F/U with thyroid functions after 6-8 weeks to adjust levothyroxine dose Speech therapy recommends a soft, chopped diet. Please return to ED if you develop new or worsening symptoms. You are being sent with home health for wound care. Follow up at [facility], [address] [place] [address]. Call [phone] for appointment. May shower than change dressing to right thigh once a day and as needed for falling off or soiling. Goal is to keep dressing clean and dry avoiding contamination with urine or feces. Dressing Change Home Care: You have a wound that needs special care to heal.? Your body will make the new skin needed to close your wound, but you have to help.? Germs and old skin on the wound have to be removed.? This is done by changing the dressing on the wound as directed by your doctor. Wound:? Right Inner Thigh and over your tailbone Supplies/Equipment (keep all supplies in one place clean and dry) o?? Normal Saline (salt water) solution.? You can make you own by boiling 2 cups of water with ? teaspoon of salt for 10 minutes.? Keep in a glass jar in the refrigerator and make a new batch every day. o?? Clean/Irrigate wound with ?normal saline or wound cleanser o?? Medication for wound: normal saline moistened gauze o?? Primary dressing ? o?? Secondary dressing: dry gauze and gauze roll o?? Tape o?? Gloves o?? Q-tips o?? Small trash bag o?? Other supplies Follow these instructions: 1.??? Wash your hands with soap and water. 2.??? Gather all your supplies and place on a clean towel or paper towel. 3.??? Put on gloves.- 4.??? Remove all of the old dressing (including gauze packing if any) and put in the trash bag. Saturate gauze packing with wound cleanser or normal saline and gently remove to avoid bleeding 5.??? Take off the gloves and put in trash bag. 6.??? If not using gloves wash your hands again or put on new gloves. 7.??? Irrigate wound with Normal saline. ?Place gauze in trash bag. 8.???Right Thigh Pack wound with strip packing including under the skin. Start inserting packing towards the top of the wound and make your way in a cicular pattern until resistance if felt and entire defect is filled. Cover with foam dressing. 9.??? Coccyx/tail bone: apply skin prep allow to dry and cover with foam dressing once a day. Reposition yourself every 2 hours side to side to avoid being on your tailbone If active bleeding occurs, apply tight dressing and return to MD or ER. ? Notify primary doctor or return to Emergency Room if any of the following: ? Fever above 100.6? F. ? Increased pain ? Increase swelling ? Red streaks around your wound ? Drainage becomes foul smelling or changes color ? The wound is larger or deeper ? The wound looks dried out or dark ? Bleeding that does not stop with holding pressure Prescriptions/Referrals Referrals: Doc - Wound Care,Generic [Physician] - No Primary/Family,Physician [Primary Care Provider] - Piotr Haskins MD [Physician] - Patient/Caregiver Discharge Instructions Meds to Beds: No Discharge Activity: activity as tolerated Education Materials: When You Need a Blood Transfusion ..., Neutropenia, Nutrition for Wound Healing, Pressure Injury Dc, Changing Dressing Dc, Wound Care Dc, Discharge Instructions Wound ..., Preventing Surgical Site Infections, Dysphagia Diet- Managing Drinks, Dysphagia Diet- Managing Foods, ED Abscess, Incision And Drainage Print Language: Lithuanian Activity Restrictions/Additional Instructions: WOUND CARE- 1) Right medial thigh abscess: Moistened with NS and gently remove packing. Irrigate well with NS and pat dry, Repack wound with 1 strip packing including circumferential undermining. Cover with allyven dressing daily and PRN for falling off or soiling. 2) Stage 1 with epidermal stripping over sacrum: cleanse with NS, pat dry, apply skin prep and cover with allyven dressing daily and PRN for falling off or soiling. Side to side repositioning except for meals, Negative heel pressure, No briefs please. Please teach family wound care and send supplies x 1 week home on discharge Stand Alone Forms: [employer] Award Info., Patient Portal Info Letter Discharge Order Discharge Orders: Discharge (Routine); Ordered 03/22/25 Ordered By: Ray Ernst
== END 2025-03-22 20:00 | disposition expired | DRG 602 ==
LOC: SERX 20:45 → SERHOLD 22:26 → S2NX 23:10 → S3SX 03-21 22:53
PROVIDERS: Nurse Practitioner Family; Student in an Organized Health Care Education/Training Program; Surgery; Admitting Provider Student in an Organized Health Care Education/Training Program; Emergency Provider Emergency Medicine; Visit Provider Internal Medicine
PROC: 0J9L0ZZ Drainage of Right Upper Leg Subcutaneous Tissue and Fascia, Open Approach (ICD-10-PCS; principal; 2025-03-08 10:00)
DX: L02.415 Cutaneous abscess of right lower limb (principal); N17.0 Acute kidney failure with tubular necrosis; I50.22 Chronic systolic (congestive) heart failure; I13.0 Hypertensive heart and chronic kidney disease with heart failure and stage 1 through stage 4 chronic kidney disease, or unspecified chronic kidney disease; D61.818 Other pancytopenia; N18.4 Chronic kidney disease, stage 4 (severe); D84.9 Immunodeficiency, unspecified; E87.0 Hyperosmolality and hypernatremia; E87.20 Acidosis, unspecified; F05 Delirium due to known physiological condition; G21.19 Other drug induced secondary parkinsonism; G93.40 Encephalopathy, unspecified; R18.8 Other ascites; D46.9 Myelodysplastic syndrome, unspecified; I25.10 Atherosclerotic heart disease of native coronary artery without angina pectoris; I50.82 Biventricular heart failure; I27.29 Other secondary pulmonary hypertension; E03.9 Hypothyroidism, unspecified; R94.31 Abnormal electrocardiogram [ECG] [EKG]; N40.0 Benign prostatic hyperplasia without lower urinary tract symptoms; R29.6 Repeated falls; G25.2 Other specified forms of tremor; Z95.1 Presence of aortocoronary bypass graft; Z95.810 Presence of automatic (implantable) cardiac defibrillator; Z79.890 Hormone replacement therapy; B95.62 Methicillin resistant Staphylococcus aureus infection as the cause of diseases classified elsewhere; B96.5 Pseudomonas (aeruginosa) (mallei) (pseudomallei) as the cause of diseases classified elsewhere; E03.8 Other specified hypothyroidism; E56.9 Vitamin deficiency, unspecified; E83.39 Other disorders of phosphorus metabolism; E83.52 Hypercalcemia; E87.5 Hyperkalemia; E87.8 Other disorders of electrolyte and fluid balance, not elsewhere classified; F41.9 Anxiety disorder, unspecified; I25.5 Ischemic cardiomyopathy; B36.9 Superficial mycosis, unspecified; K59.00 Constipation, unspecified; R09.02 Hypoxemia; Z51.5 Encounter for palliative care; Z53.9 Procedure and treatment not carried out, unspecified reason; Z66 Do not resuscitate; D63.1 Anemia in chronic kidney disease; Z79.899 Other long term (current) drug therapy; F80.81 Childhood onset fluency disorder; Z95.5 Presence of coronary angioplasty implant and graft; Z86.79 Personal history of other diseases of the circulatory system; R06.82 Tachypnea, not elsewhere classified; L03.115 Cellulitis of right lower limb
CPT/HCPCS: 36415; 36600; 70450; 71045; 71250; 73700; 74176; 80053; 80202; 81001; 82140; 82607; 82746; 82803; 83605; 83615; 83690; 83735; 83880; 84100; 84132; 84145; 84295; 84425; 84439; 84443; 84484; 85014; 85018; 85025; 85610; 85730; 86850; 86900; 86901; 86923; 86965; 87040; 87070; 87075; 87077; 87081; 87086; 87186; 87205; 92526; 92610; 93971; 94640; 94762; 96361; 96365; 96366; 96375; 97163; A4217; A4649; J0131; J0692; J0696; J1171; J1815; J1938; J1956; J2060; J2250; J2270; J2274; J2470; J2543; J2704; J3010; J3372; J3373; J3475; J3490; J7030; J7050; J7070; J7120; J7121; P9016; P9035; P9047; Q5101; A9270; J0665; J1836; J7999